=== PATIENT | male | born 1940 | race Caucasian/White ===

== ENCOUNTER 2016-03-08 22:38 | Inpatient (IN) | payer OTHER, MEDICARE ==
[~2016-03-08] VITALS: Ht 172.7 cm; Wt 105.2 kg
[~2016-03-08 22:38] MED LIST: ADVAIR DISKUS 21 DSK INH; ALDACTONE25 MG PO; ASPIRIN ADULT L81 M2 PO; CEFUROXIME AXE500 MG PO; CLOPIDOGREL75 MG PO; COREG6.25 M1 PO; CRESTOR10 M1 PO; DELTASONE20 MG PO; ESCITALOPRAM OX10 MG PO; FUROSEMIDE20 MG PO; GLYBURIDE5 MG PO; IPRAT-ALBUT 0.5-3 ML INH; LOSARTAN POTASS25 M1 PO; MASON NATURAL325 MG PO; METFORMIN HCL500 MG PO; OMEPRAZOLE20 M2 PO; PREDNISONE 10MG10 M1 PO; PREDNISONE10 M2 PO; PROAIR HFA8.5 GM INH; SPIRIVA18 MCG INH; THEOPHYLLINE E100 MG PO; ZANTAC 150MG150 MG PO; ZITHROMAX Z-PA250 M1 PO; ZITHROMAX250 M2 PO; [UNRECOGNIZED DRUG - CODE] PO
--- NOTE | 2016-03-08 22:49 | NUR ---
TONIO FROM [facility] FOR [facility] REPORT OF HYPOGLYCEMIA B/S 84, LETHARGY TODAY, WHICH PATIENT CONFIRMS, AND SOB. ARRIVES WITH UNLABORED RESPIRATIONS O2 SAT 99% 2LNC. HX RESP FAILURE AND COPD, SLEEP APNEA, AFIB, CKD, COGNITIVE COMMUNICATION DEFICIT, HEART FAILURE, TYPE 1 DIABETES. ACCUCHECK 115 BY EMS. DENIES PAIN UPON ARRIVAL. SLEEPING, BUT AROUSABLE TO VERBAL STIMULI. ABLE TO FOLLOW COMMANDS.
--- NOTE | 2016-03-08 22:56 | ED GENERAL ADULT ---
History of Present Illness General Chief Complaint: General Adult Stated Complaint: BIBA ECF FOR LETHARGY, LOW O2 SAT, HYPOGYLCEMIA Source: old records, EMS Exam Limitations: confusion Vital Signs & Intake/Output Vital Signs & Intake/Output Vital Signs Date Time Temp Pulse Resp B/P Pulse O2 O2 Flow FiO2 Ox Delivery Rate 03/08 2350 81 96 03/08 2340 99 Nasal 1.0L Cannula 03/08 2250 97.2 67 18 116/56 99 Nasal 1.0L Cannula ED Intake and Output 03/09 0000 03/08 1200 Intake Total Output Total Balance Patient 200 lb Weight Allergies Coded Allergies: NO KNOWN ALLERGIES (04/17/15) Reconcile Medications Albuterol Sulfate (Proair Hfa) 8.5 GM HFA.AER.AD 2-4 INH INH Q6P PRN ASTHMA Aspirin 81 MG CTB 1 TAB PO DAILY STROKE (Reported) Azithromycin (Zithromax) 250 MG TABLET 1 DP PO AD COPD/BRONCHITIS 2 the first day followed by 1 for days 2-5 Carvedilol (Coreg) 6.25 MG TAB 1 TAB PO BID HEART (Reported) CLOPIDOGREL BISULFATE (Clopidogrel) 75 MG TAB 1 TAB PO DAILY STROKE (Reported ) Escitalopram Oxalate 10 MG TABLET 1 TAB PO DAILY MENTAL HEALTH (Reported) Ferrous Sulfate 325 MG TAB 1 TAB PO DAILY SUPPLEMENT (Reported) FLUTICASONE/SALMETEROL (Advair 250-50 Diskus) 1 DSK DSK 1 PUFF INH BID COPD Furosemide 20 MG TAB 1 TAB PO DAILY PEDAL EDEMA Glyburide 5 MG TAB 1 TAB PO BID DIABETES Ipratropium/Albuterol Sulfate (Iprat-Albut 0.5-3(2.5) MG/3 Ml) 3 ML AMPUL.NEB 1 AMP INH TID COPD (Reported) Losartan Potassium 25 MG TABLET 25 MG PO DAILY HTN,KIDNEY Metformin Hydrochloride (Metformin HCl) 500 MG TAB 1 TAB PO BID DIABETES ( Reported) Prednisone (Deltasone) 20 MG TABLET 3 TAB PO DAILY ASTHMA Ranitidine (Zantac) 150 MG TAB 1 TAB PO DAILY REFLUX (Reported) Rosuvastatin Calcium (Crestor) 10 MG TAB 1 TAB PO DAILY CHOLESTEROL (Reported ) Spironolactone (Aldactone) 25 MG TABLET 1 TAB PO DAILY DIURETIC (Reported) Theophylline Anhydrous (Sohail-24) 100 MG CAP.ER.24H 1 CAP PO DAILY COPD ( Reported) Tiotropium [place] (Spiriva) 18 MCG CAP 1 CAP INH DAILY COPD (Reported) Triage Note: BIBA FROM [facility] FOR [facility] REPORT OF HYPOGLYCEMIA B/S 84, LETHARGY TODAY, WHICH PATIENT CONFIRMS, AND SOB. ARRIVES WITH UNLABORED RESPIRATIONS O2 SAT 99% 2LNC. HX RESP FAILURE AND COPD, SLEEP APNEA, AFIB, CKD, COGNITIVE COMMUNICATION DEFICIT, HEART FAILURE, TYPE 1 DIABETES. ACCUCHECK 115 BY EMS. DENIES PAIN UPON ARRIVAL. SLEEPING, BUT AROUSABLE TO VERBAL STIMULI. ABLE TO FOLLOW COMMANDS. Triage Nurses Notes Reviewed? yes HPI: [facility] of leth[facility]y, confusion and hypoxia. Patient is chronically on O2 and he desaturated while they were changing him over to his CPAP. EMS was contacted and the patient was brought in for evaluation. Patient opened up his eyes to painful stimuli. Patient is not able to offer any complaints. Per the W [facility] they have not noticed any coughing. Past History Travel History Traveled to [facility] past 21 day No Medical History Any Pertinent Medical History? see below for history Neurological: CVA EENT: NONE Cardiovascular: CHF, hyperlipidemia, myocardial infarction, HTN? 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 No Review of Systems Review of Systems Constitutional: Reports: see HPI. Respiratory: Reports: see HPI. Physical Exam Physical Exam General Appearance: well developed/nourished, severe distress Head: atraumatic, normal appearance Eyes: Bilateral: PERRL, EOMI. Ears, Nose, Throat: normal pharynx, normal ENT inspection Neck: normal inspection, supple, NO JVD Respiratory: decreased breath sounds, respiratory distress Cardiovascular: regular rate/rhythm, normal peripheral pulses Gastrointestinal: normal bowel sounds, soft Back: normal inspection Extremities: pedal edema Core Measures ACS in differential dx? Yes ASA ordered for poss ACS? Yes-ordered CVA/TIA Diagnosis: No Severe Sepsis Present: No Septic Shock Present: No Progress Differential Diagnoses I considered the following diagnoses in my evaluation of the patient: [AMI, hypercarbic respiratory failure, electrolyte abnormality] Plan of Care: Orders Procedure Date/time Status BLOOD CULTURE 03/09 7 Active Admit to inpatient 03/09 0003 Active BIPAP 03/08 2352 Complete ARTERIAL BLOOD GAS (GEN) 03/08 2246 Active XRY-PORTABLE CHEST XRAY 03/08 2246 Active Telemetry/Dry Dip Worker 03/08 2246 Active TROPONIN LEVEL 03/08 2246 Complete COMPREHENSIVE METABOLIC PANEL 03/08 2246 Complete CBC WITHOUT DIFFERENTIAL 03/08 2246 Complete EKG 03/08 2246 Active Current Medications Sig/Amadeo Start time Last Medication Dose Stop Time Status Admin Aspirin 325 MG ONCE ONE 03/09 14 AC (Aspirin) 03/09 15 Azithromycin 500 MG ONCE ONE 03/09 14 UNVr (Zithromax) 03/09 113 Dextrose/Water 250 ML (D5W) Ceftriaxone Sodium 1,000 MG ONCE ONE 03/09 14 UNVr (Rocephin) 03/09 15 Methylprednisolone 125 MG ONCE ONE 03/09 14 UNVr (Solu Medrol) 03/09 15 Laboratory Tests 03/08/165: Anion Gap 6, Estimated GFR 42 L, BUN/Creatinine Ratio 25.0, Glucose 93, Calcium 8.9, Total Bilirubin 0.3, AST 16 L, ALT 22, Alkaline Phosphatase 61, Troponin I 0.33 *H, Total Protein 5.9 L, Albumin 3.3 L, Globulin 2.6, Albumin/Globulin Ratio 1.3, CBC w Diff NO MAN DIFF REQ, RBC 2.95 L, MCV 88.3, MCH 29.0, RDW 13.3 , MPV 8.2, Gran % 72.7, Lymphocytes % 15.7 L, Monocytes % 9.6 H, Eosinophils % 1.8, Basophils % 0.2, Absolute Granulocytes 9.8 H, Absolute Lymphocytes 2.1, Absolute Monocytes 1.3 H, Absolute Eosinophils 0.2, Absolute Basophils 0, PUBS MCHC 32.8 L 03/08/16 2310: pH 7.32 L, pCO2 72 *H, pO2 83, HCO3 36 H, ABG O2 Sat (Measured) 94.0 L, Carboxyhemoglobin 1.2 L, O2 Concentration % 1L, O2 Delivery Method NC, Phlebotomy Draw Site LEFT RADIAL Microbiology 03/09 7 BLOOD: Blood Culture - ORD 03/09 7 BLOOD: Blood Culture - ORD Diagnostic Imaging: Viewed by Me: Radiology Read. Discussed w/RAD: Radiology Read. Initial ED EKG: NSR, nonspecific ST T wave chg Prior EKG: unchanged Rhythm Strip: normal sinus rhythm Departure Departure Disposition: STILL A PATIENT Condition: Guarded Clinical Impression Primary Impression: COPD exacerbation Secondary Impressions: Hypercapnic respiratory failure, NSTEMI (non-ST elevated myocardial infarction) Referrals: ELLA GARCIA MD (PCP/Family) Departure Forms: Customer Survey General Discharge Information Admission Note Spoke With: BRAIN CANDELARIO MD Documentation of Exam: Documentation of any treatments & extenuating circumstances including Concerns Regarding Discharge (functional status, medication knowledge or non-compliance, living conditions, etc.) that warrant an admission rather than observation: [ BiPAP, pulmonary consult, cardiology consult, IV steroids, aspirin, IV antibiotics] Critical Care Note Critical Care Note Critical Care Time: mins: (30 MINUTES)
--- NOTE | 2016-03-08 23:26 | NUR ---
LABS DRAWN AND SENT TO LAB 2 SST LAV KEENAN ZULETA
--- NOTE | 2016-03-08 23:28 | NUR ---
LINE EST #20 TO [facility]. LABS DRAWN AND SENT (LAV,SST,EXTRA BLUE, EXTRA ZULETA.)
[2016-03-08 23:33] LABS: ABSOLUTE BASOPHIL COUNT 0 /CUMM (0.0-0.2); ABSOLUTE EOSINOPHIL COUNT 0.2 /CUMM (0.0-0.7); ABSOLUTE GRANULOCYTE CT 9.8 /CUMM (1.4-6.5); ABSOLUTE LYMPH COUNT 2.1 /CUMM (1.2-3.4); ABSOLUTE MONOCYTE COUNT 1.3 /CUMM (0.10-0.60); BASOPHIL % 0.2 % (0.0-2.0); EOSINOPHIL % 1.8 % (0-5); GRANULOCYTE % 72.7 % (42.2-75.2); MEAN CORPUSCULAR HGB CONC 32.8 G/DL (33.0-37.0); MEAN CORPUSCULAR VOLUME 88.3 FL (80.0-94.0); MEAN PLATELET VOLUME 8.2 FL (7.4-10.4); PLATELET COUNT 319 /CUMM (130-400); RBC DISTRIBUTION WIDTH 13.3 % (11.5-14.5); RED BLOOD CELL CT 2.95 /CUMM (4.70-6.10); WHITE BLOOD CELL COUNT 13.5 /CUMM (4.8-10.8)
--- NOTE | 2016-03-08 23:43 | NUR ---
RT AT BEDSIDE TO ESTABLISH BIPAP
--- NOTE | 2016-03-08 23:59 | NUR ---
CRITICAL TEST RESULTS [id number] FLORENTINO MARIE 76 M TESTS AND RESULTS: TROP = 0.33 Results received and read back by: MAGALY ROBERTS Results received date and time: 03/08/16 2723 The following provider was notified of the results, and read the results back: VIDYA Notified date and time: 03/08/16 at 2118
--- NOTE | 2016-03-09 00:21 | History & Physical ---
ANNA BARRETT,[facility] [place] 03/09/16 0021: General Information and HPI MD Statement: I have seen and personally examined FLORENTINO DAVID and documented this H&P. The patient is a 76 year old M who presented with a patient stated chief complaint of lethargy. Source of Information: patient, old records, W10 Exam Limitations: unable to give history, clinical condition History of Present Illness: Mr David is a 76 y/o M with PMHx of COPD on 2 L of oxygen at home, obstructive sleep apnea on nocturnal CPAP, HFrEF, HTN, HLD, T2DM, CAD c/b [place] s/p CABG in 2010, CVA and CKD stage 3B, recently admitted under observation to [facility] for respiratory failure and discharged to [facility] at [place] few days prior to current presentation, who presents with lethargy. Most of the history is obtained from [facility] as patient is unable to provide any history given his mental status. Patient had been noted to be drowsy since his initial presentation to [place] after being discharged from [facility]. However, on the morning of current presentation, patient was lethargic and unarousable by verbal commands and soft sternal rub. His blood sugar was checked and came back at 53. He was given orange juice and his morning meal with subsequent improvement of his sugar to > 100. He remained lethargic throughout the day and his oxygen saturations dropped. He was given his scheduled breathing treatments and placed on low pressure BiPAP with some improvement in his hypoxia. Patient's son was contacted who reported that patient had had a similar presentation 4 years ago and required BiPAP at the time. ROS was unobtainable at this at time but patient denied any pain when asked by shaking his head. Of note , patient was hospitalized here at [facility] in June 2015 for acute on chronic hypercarbic and hypoxemic respiratory failure secondary to COPD exacerbation and elevated troponins, felt to represent demand ischemia. Allergies/Medications Allergies: Coded Allergies: NO KNOWN ALLERGIES (04/17/15) Home Med list Albuterol Sulfate (Proair Hfa) 8.5 GM HFA.AER.AD 2-4 INH INH Q6P PRN ASTHMA Aspirin 81 MG CTB 1 TAB PO DAILY STROKE (Reported) Azithromycin (Zithromax) 250 MG TABLET 1 DP PO AD COPD/BRONCHITIS 2 the first day followed by 1 for days 2-5 Carvedilol (Coreg) 6.25 MG TAB 1 TAB PO BID HEART (Reported) CLOPIDOGREL BISULFATE (Clopidogrel) 75 MG TAB 1 TAB PO DAILY STROKE (Reported ) Escitalopram Oxalate 10 MG TABLET 1 TAB PO DAILY MENTAL HEALTH (Reported) Ferrous Sulfate 325 MG TAB 1 TAB PO DAILY SUPPLEMENT (Reported) FLUTICASONE/SALMETEROL (Advair 250-50 Diskus) 1 DSK DSK 1 PUFF INH BID COPD Furosemide 20 MG TAB 1 TAB PO DAILY PEDAL EDEMA Glyburide 5 MG TAB 1 TAB PO BID DIABETES Ipratropium/Albuterol Sulfate (Iprat-Albut 0.5-3(2.5) MG/3 Ml) 3 ML AMPUL.NEB 1 AMP INH TID COPD (Reported) Losartan Potassium 25 MG TABLET 25 MG PO DAILY HTN,KIDNEY Metformin Hydrochloride (Metformin HCl) 500 MG TAB 1 TAB PO BID DIABETES ( Reported) Prednisone (Deltasone) 20 MG TABLET 3 TAB PO DAILY ASTHMA Ranitidine (Zantac) 150 MG TAB 1 TAB PO DAILY REFLUX (Reported) Rosuvastatin Calcium (Crestor) 10 MG TAB 1 TAB PO DAILY CHOLESTEROL (Reported ) Spironolactone (Aldactone) 25 MG TABLET 1 TAB PO DAILY DIURETIC (Reported) Theophylline Anhydrous (Sohail-24) 100 MG CAP.ER.24H 1 CAP PO DAILY COPD ( Reported) Tiotropium [place] (Spiriva) 18 MCG CAP 1 CAP INH DAILY COPD (Reported) Past History Travel History Traveled to [place] past 21 day No Medical History Neurological: CVA EENT: NONE Cardiovascular: CAD, hypertension, hyperlipidemia, myocardial infarction, systolic CHF Respiratory: COPD, obstructive sleep apnea, pneumonia Gastrointestinal: NONE Hepatic: NONE Renal: chronic kidney disease Musculoskeletal: NONE Psychiatric: NONE Endocrine: diabetes Blood Disorders: NONE Cancer(s): NONE BRIDGE WELDER/Reproductive: NONE History of MRSA: No History of VRE: No History of CDIFF: No Surgical History Surgical History: CABG, back surgery, surgeries in bilateral shoulders Past Family/Social History Family History Relations & Conditions if any FATHER, ; Cause: MVA (motor vehicle accident). FH: diabetes mellitus MOTHER FH: breast cancer SISTER, ; Cause: Motor vehicle accident. BROTHER, ; Cause: Cancer. FH: cancer No family history of: FH: heart disease; FH: stroke Psychosocial History Services at Home: Nursing, Oxygen Smoking Status: Former Smoker (Used to smoke 3 PPD) ETOH Use: denies use Illicit Drug Use: denies illicit drug use Living Will? yes Functional Ability ADLs Independent: dressing, eating, toileting, bathing. IADLs Independent: shopping, housework, finances, food prep, telephone, transportation , medication admin. Employment History Employment Retired Profession/Employer [employer] Review of Systems Review of Systems Constitutional: Reports: see HPI. Exam & Diagnostic Data Last 24 Hrs of Vital Signs/I&O Vital Signs Date Time Temp Pulse Resp B/P Pulse O2 O2 Flow FiO2 Ox Delivery Rate 03/09 0155 64 96 03/09 0132 97.1 68 20 117/57 98 BIPAP 30% 03/09 0131 97.1 03/08 2350 81 96 03/08 2340 99 Nasal 1.0L Cannula 03/08 2250 97.2 67 18 116/56 99 Nasal 1.0L Cannula Intake & Output 03/09 0800 03/09 0000 03/08 1600 Intake Total Output Total Balance Patient 90.718 kg Weight Physical Exam General Appearance Mild Distress, Lethargic but Arousable to Verbal Stimuli, Follows Simple Commands Skin No Rashes, Warm, Dry and Intact, Capillary Refill < 2 Seconds HEENT Mucous Membr. moist/pink Cardiovascular Regular Rate, Normal S1, Normal S2 Lungs Clear to Auscultation, Diminished Breath Sounds, No Crackles or Wheezes Abdomen Soft, No Tenderness, Positive Bowel sounds Neurological Strength at 5/5 X4 Ext, Moving All 4 Extremities Spontaneously, No Gross Focal Deficits Noted, Negative Babinski Sign Bilaterally Extremities No Clubbing, No Cyanosis, Trace Edema on Bilateral Lower Extremities Last 24 Hrs of Labs/[place]: Laboratory Tests 03/09/16 0200: pH 7.30 *L, pCO2 67 *H, pO2 75 L, HCO3 33 H, ABG O2 Sat (Measured) 94.0 L, P- 50 (Temp Corrected) Y, Carboxyhemoglobin 0.7 L, O2 Concentration % 30%, Temperature 97.1, Respiration Rate 20, O2 Delivery Method VISION-FFM, Vent Mode ST, Expiratory Pressure 4, Inspiratory Pressure 16, Phlebotomy Draw Site RIGHT RADIAL 03/08/16 6505: Anion Gap 6, Estimated GFR 42 L, BUN/Creatinine Ratio 25.0, Glucose 93, Calcium 8.9, Total Bilirubin 0.3, AST 16 L, ALT 22, Alkaline Phosphatase 61, Troponin I 0.33 *H, Total Protein 5.9 L, Albumin 3.3 L, Globulin 2.6, Albumin/Globulin Ratio 1.3, CBC w Diff NO MAN DIFF REQ, RBC 2.95 L, MCV 88.3, MCH 29.0, RDW 13.3 , MPV 8.2, Gran % 72.7, Lymphocytes % 15.7 L, Monocytes % 9.6 H, Eosinophils % 1.8, Basophils % 0.2, Absolute Granulocytes 9.8 H, Absolute Lymphocytes 2.1, Absolute Monocytes 1.3 H, Absolute Eosinophils 0.2, Absolute Basophils 0, PUBS MCHC 32.8 L 03/08/16 2310: pH 7.32 L, pCO2 72 *H, pO2 83, HCO3 36 H, ABG O2 Sat (Measured) 94.0 L, Carboxyhemoglobin 1.2 L, O2 Concentration % 1L, O2 Delivery Method NC, Phlebotomy Draw Site LEFT RADIAL Microbiology 03/09 0059 URINE ROUT: Urine Culture - ORD 03/09 0030 BLOOD: Blood Culture - RECD 03/09 0015 BLOOD: Blood Culture - RECD Diagnostic Data EKG Results Normal sinus rhythm HR 69 Intraventricular conduction delay QTc 476 CXR Results Enlarged cardiac silhouette which limits assessment of the left base. No definite acute findings. Other Results ECHO (06/25/2015): 1. Very limited study. Consider NORY. 2. Moderate to severely decreased systolic function based on limited views. 3. Mild left ventricular hypertrophy. 4. Mild left atrial enlargment. 5. Mild tricuspid regurgitation. Assessment/Plan Assessment: 76 y/o M with PMHx of COPD on 2 L of oxygen at home, obstructive sleep apnea on nocturnal CPAP and CAD c/b OH s/p CABG who presents with lethargy, found to be in acute on chronic hypercarbic and hypoxemic respiratory failure and with elevated troponins. #Acute on chronic hypercarbic and hypoxemic respiratory failure: Most likely secondary to obstructive sleep apnea with possible contribution from COPD exacerbation, although patient has no wheezing on exam. ABG 7.32/72/83/36 on 1 L NC. Repeat ABG 7.30/67/75/33 on BiPAP with FiO2 30% 2 hours later. CXR with no evidence of pneumonia or CHF. S/p 1 dose of IV azithromycin and ceftriaxone and 125 mg of IV Solumedrol in the ED. On 2 L of oxygen at home. On Spiriva and Advair prior to admission. * Pulmonology consult in the AM. Appreciate their recs. * TRC nebs and pulmonary toilet. * Spiriva and Symbicort inhalers. * Sputum Cx and BCx ordered. * Continue BiPAP with increased RR from 20 to 24. * Re-check ABG in the AM. * Continue qojrq-lg-woaqufdhj theophylline 100 mg PO QD. * Solumedrol 40 mg IV BID. * Azithromycin 250 mg IV QD. * Check proBNP. * Provide supplemental oxygen as needed to keep SpO2 > 92%. * Obtain records from [facility] regarding most recent hospitalization. #Lethargy: Likely secondary to hypercarbic respiratory failure. * NPO pending swallow eval. * TSH, free T4 and PM cortisol ordered. * UA, Utox and UCx ordered. #Elevated troponins: Troponin elevated to 0.33. Differential includes demand ischemia and NSTEMI. EKG with no ST-T wave abnormalities. Patient denies chest pain. * Cardiology consult in the AM. Appreciate their recs. * Admit to telemetry for continuous cardiac monitoring. * Serial EKG and troponins. * If troponins uptrend, consider starting patient on IV heparin per PTT protocol for suspected NSTEMI. * ECHO ordered. #Anemia: [facility], slightly decreased from baseline of 9-11. Normocytic anemia with MCV of 89. Iron level was checked and came back at 23. Likely represents with anemia of CKD with possible superimposed iron deficiency anemia. * Continue prior to admission ferrous sulfate 325 mg PO QD. * Atorvastatin 40 mg PO QD. * Continue kwdly-gu-mbynbrbqq aspirin 81 mg PO QD, carvedilol 3.125 mg PO BID and Plavix 75 mg PO QD. #T2DM: Episode of hypoglycemia to 53 the morning of current presentation at [facility], with improvement of BG > 100 after meal. BG 84 on current admission. * Accu-checks and Novolog NPO SSI Q6H. * Check HbA1c. #HFrEF: Most recent ECHO (June 2015) with LVEF of 30%. No evidence of CHF on CXR this admission. * Holding kundl-at-gokqjorlz Lasix for now. #CAD: History of OH s/p CABG in 2010. * Continue home statin, aspirin, beta-benigno and Plavix as above. * Lipid panel ordered. #CKD stage 3B: Cr 1.6 on admission, which is baseline for patient. * Avoid nephrotoxic medications. * Monitor lytes and kidney function. #Depression: * Continue ckxmj-yl-jrbzpllnk escitalopram 10 mg PO QD. Diet: NPO Fluids: NS @ 50 cc/hr Lytes: Replete to K > 4 and Mg > 2 DVT PPx: HSQ and ALPs GI PPx: Protonix 40 mg IV QD Pain: Tylenol 650 mg PO Q6H PRN for mild pain (scale 1-3) Percocet 1 tab PO Q6H PRN for moderate pain (scale 4-6) Percocet 2 tabs PO Q6H PRN for severe pain (scale 7-10) CODE: FULL As Ranked By This Provider Problem List: 1. CKD (chronic kidney disease) stage 3, GFR 30-59 ml/min 2. Hypercapnic respiratory failure 3. Anemia 4. Elevated troponin 5. T2DM (type 2 diabetes mellitus) 6. HTN (hypertension) 7. HLD (hyperlipidemia) 8. CAD (coronary artery disease) 9. S/P CABG (coronary artery bypass graft) 10. History of OH (myocardial infarction) 11. Acute on chronic respiratory failure with hypoxia and hypercapnia 12. Depression 13. HFrEF (heart failure with reduced ejection fraction) 14. Leukocytosis Core Measures/Miscellaneous Acute Coronary Syndrome ACS Diagnosis: No Cerebrovascular Accident CVA/TIA Diagnosis: No Congestive Heart Failure CHF Diagnosis: No Venous Thromboembolism VTE Risk Factors: Acute medical illness, Age > 40, CHF or Resp failure VTE Prophylaxis Ordered Inpt: Mech & Pharm No Mech VTE prophylaxis d/t: No contraindications No VTE Pharm Prophylaxis d/t: No contraindications VTE Diagnosis: No VTE Type: NONE VTE Confirmed by (Test): NONE Severe Sepsis Severe Sepsis Present: No Septic Shock Septic Shock Present: No Miscellaneous Documentation Attending Case Discussed With: NI CANDELARIO MDDayana Primary Care Physician: ELLA GARCIA MD Patient sees these Specialists Medical Detailist and Security Auditor at [place] Level of Patient Care: Telemetry RADHA PAULINO 03/09/16 0159: Resident Review Statement Resident Statement: examined this patient, discussed with hr intern, agreed with hr intern, discussed with family, reviewed EMR data (avail), discussed with nursing , reviewed images Other Findings: Mr David is a 76-year-old gentleman with a PMH of COPD on 2 LNC, JUANITO on nocturnal CPAP, HTN, DM, CAD, OH with CABG 2010, CVA, COPD stage III who was BIBA from [facility] after noticeable lethargy/drowsiness this morning. Information obtained from W 10 and nurse at the facility: He was recently discharged from [facility] and has been that [place] for the past 3-4 days. This morning he was noted to be much more drowsy and lethargic, Accu-Chek 53 for which he received some orange juice and corrected to >120. He was placed on BiPAP later in the evening with an interval improvement in arousability but persistent lethargy. VS on admission: BP 116/56, HR 67, RR 18, SPO2 99% on 1L NC, T 97.2 PE: Patient is arousable to loud verbal commands/sternal rub. Able to follow commands appropriately. RRR, distant heart sounds. Normal air movement, no wheezing/rhonchi. Normal bowel sounds with no tenderness to palpation. Spontaneous movement of all extremities, negative Babinski. Pertinent labs: WBC 13.5, H&H 8.5/26.0, sodium 140, potassium 4.1, chloride 97, HCO 37, BUN/CR 40/1.6, glucose 93 ProBNP: 6190 ABG (2310hrs): 7.32/72/83/36/94% on 1 LNC ABG (0200hrs): 7.30/67/75/33/94% on 30% FiO2 Troponin: 0.33 CXR: Large cardiac silhouette which limits assessment of the left base. No definitive acute findings. Problem list: 1. Hypercarbic respiratory failure 2. Altered mental status 3. Elevated troponins 4. COPD 5. JUANITO 6. Diabetes: Hypoglycemic episode prior to admission 7. Hypertension Plan: * Admit to telemetry for continuous cardiac monitoring. EKG/troponin at 0600, 1200: NSTEMI vs demand ischemia. Previous echo (06/2015): LVEF 30%, RV syst pressure 27.6. Will obtain Echocardiogram in the a.m. Patient has been seen by Dr. Arrieta and Dr. Crouch most recently. Please confirm when placing cardio consult in the a.m. Restart lasix once more stable * Physical exam did not reveal any evidence of wheezing thus less inclined to continue steroids at this time. ABG results as indicated above. We'll increase RR from 20-24, continue IPAP/EPAP 16/4 for now. Pulm consult in the a.m. (Dr. Valenzuela) * AMS: Likely secondary to hypercarbia vs hypoglycemia. Patient may benefit from repeat sleep study to assess AHI and nocturnal BiPAP. Follow-up urine tox, UA/culture. NPO sliding scale. Continue on D5NS @ 50cc/hr for total fo 500ml * Iron defi anemia: serum Fe 23 which is down from 64 approx 2yrs ago. Consider increasing Feso to BID from once daily * NPO at this time. Swalllow eval in the AM an start on diabetic diet once cleared * GI prophylaxis: IV PPI * DVT prophylaxis: heparin 5000 unit SQ * TRCs, Spiriva, Advair * Code status: full code AM team: * Follow up [facility] records from recent discharge * Restart furosemide in the AM * Mag, Phos * Utox pending * UA, culture pending KODAK BARRETT, [facility] 03/09/16 0305: Attending MD Review Statement Attending Statement Attending MD Statement: examined this patient, discuss w/resident/PA/GARAGE DOOR TECHNICIAN, agreed w/resident/PA/GARAGE DOOR TECHNICIAN Attending Assessment/Plan: 76 yo M with h/o T2DM, CAD s/p CABG, COPD on 2L, systolic CHF, CVA, JUANITO on CPAP, CKD stage 3B, HTN, last admitted to [facility] (June 2015) for COPDE is brought in from [place] for confusion and lethargy since this AM. According to RN at the facility, accuchek was 53 and he was given orange juice. However, he continued to be lethargic and hypoxic so placed on Bipap, and sent to ER. Patient was reportedly admitted to [facility] recently, RN was able to tell us why. Vitals: afebrile, HR 60-70's, BP 117/57, sats 98% on FiO2 30%. Exam: Obese male, lethargic, arousable to verbal stimuli, able to follow few commands. Chest b/l reduced air entry. Labs: WBC 13.5, H/H 8.5/26, bicarb 37, BUN 40, creat 1.6 ( baseline), trop 0.33, proBNP 6190, AB.32/72/83/36. CXR: enlarged cardiac silhouette, no pulmonary edema or consolidation. EKG: SR with IVCD (P-waves noted, not Afib). Echo (2016): EF 30%. 1. Acute on chronic hypercarbic and hypoxemic respiratory failure in the setting of COPD and JUANITO. No evidence of CHF or pneumonia. Sputum culture, TRC nebs, check Utox, continue IV azithro and IV steroid BID for now, ct. Bipap. Repeat ABG is 7.30/67/75/33 on FiO2 30%, RR 20, I/E 16/4. Will increase FiO2 and RR and recheck ABG in 2 hours. NPO, Pulm consult (Dr. Valenzuela). 2. Elevated troponin NSTEMI vs. demand ischemia. Serial EKG/troponin, repeat Echo, Cardio consult. Obtain records of most recent hospitalization at [facility]. If troponins trending up, consider IV heparin per PTT protocol. Continue aspirin. plavix, beta benigno and statin. 3. Leukocytosis. CXR not suggestive of pneumonia, awaiting UA. 4. CKD at baseline. DM accucheks, insulin NPO SS. Check HbA1c. GI ppx IV PPI. DVT ppx heparin SC. Full code.
--- NOTE | 2016-03-09 00:57 | RADIOLOGY REPORT ---
EXAMINATION: XR PORTABLE CHEST CLINICAL INFORMATION: Shortness of breath COMPARISON: 10/26/2015 TECHNIQUE: Portable view of the chest was obtained. FINDINGS: Lung volumes are symmetric. Assessment of the left base is limited due to technique and enlarged cardiac silhouette. Linear scarring is noted in the left midlung. No definite acute consolidation. No evidence of pneumothorax or overt pulmonary edema. The cardiac silhouette is enlarged. Calcification is present at the aortic arch. No acute osseous findings are seen. Sternal wires are present. IMPRESSION: Enlarged cardiac silhouette which limits assessment of the left base. No definite acute findings.
--- NOTE | 2016-03-09 01:00 | NUR ---
house staff here to ronnie
--- NOTE | 2016-03-09 02:58 | Admission Certification ---
Admission Certification Certification Statement - As attending physician, I certify that at the time of - admission, based on clinical presentation, severity of - symptoms, need for further diagnostic testing and - therapeutic interventions, and risk of adverse outcomes - without in-hospital treatment, in my clinical assessment, - this patient requires an acute hospital stay for a minimum - of two nights or longer. I have also considered psychsocial - factors such as support system, advanced age, financial - issues, cognitive issues, and failed out-patient treatments, - past re-admission history, safety of patient, and lack of - compliance as applicable. Specific rationale supporting this admission is: Acute on chronic hypercarbic and hypoxic respiratory failure, COPD exacerbation. Elevated troponin - NSTEMI vs. demand ischemia.
--- NOTE | 2016-03-09 06:00 | NUR ---
AM VS DONE. INCONTINENT OF STOOL AND URINE. ERASMO CARE GIVEN AND NEW LINENS AND DIAPER APPLIED. LABS DRAWN--SST,LAV SENT URINE SPEC OBTAINED AND 3 TUBES SENT.
--- NOTE | 2016-03-09 06:20 | NUR ---
PT MEDICATED WITH 5000 UNIT HEPARIN BOLUS AND NOVOLIN R 4 UNITS INSULIN PER SLIDING SCALE FOR BS 193.
[2016-03-09 06:32] LABS: ABSOLUTE BASOPHIL COUNT 0 /CUMM (0.0-0.2); ABSOLUTE EOSINOPHIL COUNT 0 /CUMM (0.0-0.7); ABSOLUTE GRANULOCYTE CT 11.9 /CUMM (1.4-6.5); ABSOLUTE LYMPH COUNT 1.1 /CUMM (1.2-3.4); ABSOLUTE MONOCYTE COUNT 0.1 /CUMM (0.10-0.60); BASOPHIL % 0.1 % (0.0-2.0); EOSINOPHIL % 0.1 % (0-5); MEAN CORPUSCULAR HGB 29.2 PG (27.0-31.0); MEAN CORPUSCULAR HGB CONC 32.7 G/DL (33.0-37.0); MEAN CORPUSCULAR VOLUME 89.1 FL (80.0-94.0); MEAN PLATELET VOLUME 8.4 FL (7.4-10.4); PLATELET COUNT 294 /CUMM (130-400); RBC DISTRIBUTION WIDTH 13.9 % (11.5-14.5); RED BLOOD CELL CT 2.91 /CUMM (4.70-6.10); WHITE BLOOD CELL COUNT 13.2 /CUMM (4.8-10.8)
[2016-03-09 07:13] LABS: GRANULOCYTE % 90.6 % (42.2-75.2)
--- NOTE | 2016-03-09 07:17 | PN- Housestaff ---
Subjective Follow-up For: Acute on chronic hypercarbic/hypoxic respiratory failure Acute coronary syndrome Anemia Type 2 diabetes Chronic kidney disease stage III Depression Complaints: complaining of cold/chills Subjective: Patient is seen and examined at the bedside. He was responding to verbal command. He was on BiPAP, so not able to talk. He was just complaining of cold. Denies of any chest pain, abdominal pain, dysuria, constipation and diarrhea Review of Systems Constitutional: Reports: chills. Comments: Cannot be assessed because of patient's clinical condition on the BiPAP Objective Last 24 Hrs of Vital Signs/I&O Vital Signs Date Time Temp Pulse Resp B/P Pulse O2 O2 Flow FiO2 Ox Delivery Rate 03/09 0732 98.0 66 24 125/66 99 BIPAP 30% 03/09 0626 67 96 03/09 0622 97 BIPAP 30% 03/09 0553 97.4 64 26 124/56 97 BIPAP 30% 03/09 0346 64 96 03/09 0155 64 96 03/09 0132 97.1 68 20 117/57 98 BIPAP 30% 03/09 0131 97.1 03/08 2350 81 96 03/08 2340 99 Nasal 1.0L Cannula 03/08 2250 97.2 67 18 116/56 99 Nasal 1.0L Cannula Intake & Output 03/09 1600 03/09 0800 03/09 0000 Intake Total Output Total Balance Patient 90.718 kg Weight Physical Exam General Appearance: Cooperative, No Acute Distress Skin: No Rashes, No Breakdown HEENT: Atraumatic, PERRLA, EOMI Neck: Supple, No JVD Cardiovascular: Regular Rate, Normal S1, Normal S2 Lungs: Clear to Auscultation, decrease in entry bilaterally Abdomen: Soft, No Tenderness, distended Neurological: Normal Speech Extremities: No Clubbing, No Cyanosis, No Edema Vascular: Normal Pulses, Pulses Symmetrical Assessment/Plan Assessment: Mr David is a 76 y/o M with PMHx of COPD on 2 L of oxygen at home, obstructive sleep apnea on nocturnal CPAP, HTN, HLD, T2DM, CAD c/b [place] s/p CABG in 2010, CVA, CKD stage III, recently admitted under observation to [facility] for respiratory failure and discharged to [facility] at [place] few days prior to current presentation, who presents with lethargy. Vital signs today Chest x-ray 03/09/2016-no any acute changes Problem list - Acute and chronic
--- NOTE | 2016-03-09 07:28 | NUR ---
PT ASSIGNED ROOM 110 AT 0705.
--- NOTE | 2016-03-09 07:38 | NUR ---
ASSUMED CARE. PT SLEEPING WHEN THIS NURSE ENTERED ROOM, AWAKE TO VERBAL STIMULIS, PT REPOSITIONED UP IN BED, RESP RATE 24-26 ON BIPAP AT 30 %,O2 SAT 99 %. SINUS ON MONITOR WITH HR 72. NS INFUSING VIA PUMP AT 50 ML/HR. FINGERSTICK 193
--- NOTE | 2016-03-09 07:56 | NUR ---
REPORT TO [facility]
--- NOTE | 2016-03-09 08:29 | Cons- Pulmonary ---
General Information and HPI Consulting Request Date of Consult: 03/09/16 Requested By: Franco Diggs History of Present Illness: 76 yo M with h/o T2DM, CAD s/p CABG, COPD on 2L, systolic CHF, CVA, JUANITO on CPAP, CKD stage 3B, HTN, multiple admission for CHF and COPD exacerbation and last admission in [place] June 2015 for COPD exacerbation brought in for increasing confusion and a large she since this morning. Vital signs: HR 60-70's, BP 117/57, sats 98% on FiO2 30%. Exam: Obese male, lethargic, arousable to verbal stimuli, able to follow few commands. Chest b/l reduced air entry. Labs: WBC 13.5, H/H 8.5/26, bicarb 37, BUN 40, creat 1.6 (baseline), trop 0.33, proBNP 6190 AB.32/72/83/36 CXR: enlarged cardiac silhouette, no pulmonary edema or consolidation. EKG: SR with IVCD (P-waves noted, not Afib). Echo (2016): EF 30%. List of problems #1 acute on chronic respiratory failure due to COPD exacerbation and obesity hypoventilation syndrome #2 elevated troponin #3 leukocytosis #4 CKD Allergies/Medications Allergies: Coded Allergies: NO KNOWN ALLERGIES (04/17/15) Home Med List: Albuterol Sulfate (Proair Hfa) 8.5 GM HFA.AER.AD 2-4 INH INH Q6P PRN ASTHMA Aspirin 81 MG CTB 1 TAB PO DAILY STROKE (Reported) Azithromycin (Zithromax) 250 MG TABLET 1 DP PO AD COPD/BRONCHITIS 2 the first day followed by 1 for days 2-5 Carvedilol (Coreg) 6.25 MG TAB 1 TAB PO BID HEART (Reported) CLOPIDOGREL BISULFATE (Clopidogrel) 75 MG TAB 1 TAB PO DAILY STROKE (Reported ) Escitalopram Oxalate 10 MG TABLET 1 TAB PO DAILY MENTAL HEALTH (Reported) Ferrous Sulfate 325 MG TAB 1 TAB PO DAILY SUPPLEMENT (Reported) FLUTICASONE/SALMETEROL (Advair 250-50 Diskus) 1 DSK DSK 1 PUFF INH BID COPD Furosemide 20 MG TAB 1 TAB PO DAILY PEDAL EDEMA Glyburide 5 MG TAB 1 TAB PO BID DIABETES Ipratropium/Albuterol Sulfate (Iprat-Albut 0.5-3(2.5) MG/3 Ml) 3 ML AMPUL.NEB 1 AMP INH TID COPD (Reported) Losartan Potassium 25 MG TABLET 25 MG PO DAILY HTN,KIDNEY Metformin Hydrochloride (Metformin HCl) 500 MG TAB 1 TAB PO BID DIABETES ( Reported) Prednisone (Deltasone) 20 MG TABLET 3 TAB PO DAILY ASTHMA Ranitidine (Zantac) 150 MG TAB 1 TAB PO DAILY REFLUX (Reported) Rosuvastatin Calcium (Crestor) 10 MG TAB 1 TAB PO DAILY CHOLESTEROL (Reported ) Spironolactone (Aldactone) 25 MG TABLET 1 TAB PO DAILY DIURETIC (Reported) Theophylline Anhydrous (Sohail-24) 100 MG CAP.ER.24H 1 CAP PO DAILY COPD ( Reported) Tiotropium [place] (Spiriva) 18 MCG CAP 1 CAP INH DAILY COPD (Reported) Past History Travel History Traveled to [place] past 21 day No Medical History Neurological: CVA EENT: NONE Cardiovascular: CAD, hypertension, hyperlipidemia, myocardial infarction, systolic CHF Respiratory: COPD, obstructive sleep apnea, pneumonia Gastrointestinal: NONE Hepatic: NONE Renal: chronic kidney disease Musculoskeletal: NONE Psychiatric: NONE Endocrine: diabetes Blood Disorders: DVT Cancer(s): 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 FH: diabetes mellitus MOTHER FH: breast cancer SISTER, ; Cause: Motor vehicle accident. BROTHER, ; Cause: Cancer. FH: cancer Psychosocial History Services at Home: Nursing, Oxygen Smoking Status: Former Smoker (Used to smoke 3 PPD) ETOH Use: denies use Illicit Drug Use: denies illicit drug use Living Will? yes Functional Ability ADLs Independent: dressing, eating, toileting, bathing. IADLs Independent: shopping, housework, finances, food prep, telephone, transportation , medication admin. Employment History Employment: Retired Profession/Employer: [employer] Assessment/Plan Impression/Plan: 76-year-old obese man with history of coronary artery disease status post CABG, congestive heart failure with reduced ejection fraction of 30%, COPD on 2 days of home oxygen and obstructive sleep apnea, CTD stage III, and multiple admission due to congestive heart failure and COPD the last one in June 2015 for COPD exacerbation. Pertinent Data Labs: WBC 13.5, H/H 8.5/26, bicarb 37, BUN 40, creat 1.6 (baseline), trop 0.33, proBNP 6190 ABG: initial 7.32/72/83/36>> after few hours of BiPaP 7.30/67/75>> off BiPAP fro few hours for logistic issues, ABG 7.31/57/77. CXR: enlarged cardiac silhouette, no pulmonary edema or consolidation. EKG: SR with IVCD (P-waves noted, not Afib). Echo (2016): EF 30%. List of active problems List of problems #1 acute on chronic respiratory failure due to COPD exacerbation and obesity hypoventilation syndrome #2 elevated troponin #3 heart failure with reduced ejection fraction #4 leukocytosis #5 CKD Respiratory: Acute on chronic Hypoxic respiratory failure with minimal improvement on BiPAP impending respiratory failure. Secondary to COPD exacerbation. Pneumonia can't be ruled out. * nothing by mouth * BiPAP; PEEP 6 * D/C all the inhalers- Symbicort and Spiriva * Check ABG with a few hours after initiation of BiPAP; assess for worsening of hypercapnia * IV azithromycin 250 mg IV daily for anti-inflammatory properties * IV Solu-Medrol 40 mg every 8 hours * Stopped Theophyline due to its low cardiotoxicity dose and slight bronchodilator effect * Stop by mouth medications due to altered mental status and increased risk of aspiration * Keep the bed elevated at 45 * Aspiration precaution Infectious disease: Leukocytosis with no evidence of infection. Chest x-ray is negative. Leukocytosis could be related to dehydration or reactive leukocytosis. * Daily CBC * Continue IV azithromycin 250 mg daily * Sputum culture * Resident of senior living: urine Legionella antigen * strep urine antigen * Flue swab * Patient spiked fever HCAP * Follow blood culture and urine culture Cardiac #1 rule out ACS: Of coronary artery disease status post CABG.elevated troponin 0.33. Without EKG changes: Type II [place] versus demand ischemia. * 24-hour site monitor * Trending troponin and EKG * Keep the patient on 300 rectal aspirin * Stop Plavix due to altered mental status and risk of aspiration pneumonia- patient improved resume Plavix 75 mg by mouth daily; discussed the need and alternatives medication with cardiology * High risk of aspiration-stop atorvastatin * Switch carvedilol 3.125 to metoprolol 1.25 mg IV every 6 when necessary #2 congestive heart failure decompensation-elevated proBNP of 6190. No JVD no peripheral edema in the physical exam of the lungs chest x-ray does not show pulmonary congestion. Probably due to COPD exacerbation. Rule out acute coronary syndrome as a cause of CHF decompensation. * Admit to ICU * Restrict ins and outs * Daily weights * Consult cardiology * maintaine IV hydration with minimal rate of 50 mL per hour * Avoids over hydrating the patient considering his reduced ejection fraction of 30% * Patient's daily dose of by mouth Lasix 20 mg and spironolactone was held by admitting team due to dehydration- agree with holding diuretics for now Hematology: Normocytic anemia with hemoglobin of 8.5 and leukocytosis. * No fever no symptoms of infection. Check daily CBC * Anemia at his baseline. * Stop ferrous sulfate due to high risk of aspiration Metabolic: Low T3 possibly in an acute ill the patient. The measurements of thyroid function tests in severely sick patient is not recommended unless there is a high clinical suspicious of thyroid dysfunction. His patient below T3 could be related to acute sickness or prolonged treatment with carvedilol. * No further action is required at this moment; refer to shuttle buggy operator as an outpatient * Dehydration: Pain IV fluids 50 mL per hour-D5 half saline * increased HCO3: In the setting of obstructive sleep apnea * Chronic kidney stage-3 creatinine 1.5 at his baseline Diet * NPO * IV hydration with D5 half saline 50 mL per hour * IV pantoprazole 40 mg Neurology * Altered mental status and confusion * Hold citalopram Pain medication * Avoids all the sedative and hypnotic medications is altered mental status and hypercapnic respiratory failure * IV Tylenol for pain Subcutaneous heparin 5000 units every 8 DVT prophylaxis Full code TTS with patient 1 h ICU time Consult Acknowledgment - Thank you for your consult request.
[2016-03-09 09:00] VITALS: BP 120/62
--- NOTE | 2016-03-09 09:32 | NUR ---
REC'D THE PT FROM THE ER AT 0830. TRANSFERRED TO THE BED WITH ASSIST OF 5 PERSONS. PT IS DROWSY BUT AROUSABLE, ORIENTED TO SELF AND PLACE BUT DISORIENTED TO TIME, REORIENTED WITH LITTLE EFFECT. MOVES ALL EXTREMEITES AND HAS EQUAL STRENGTH BILATERALLY. FOLLOWS COMMANDS. PT IS IN A FIRST DEGREE AVB WITH A NV OF .26, FREQ PVC'S NOTED. NO PERIPHERAL EDEMA NOTED. PT IS ON A 2LNC WITH AN O2 SAT OF 96%. BS ARE DIMINISHED THROUGHOUT. RR IS 24. ABD IS SOFT WITH NORMOACTIVE BOWEL SOUNDS. SALAZAR IN PLACE DRAINING CLEAR YELLOW URINE. ORIENTED TO [facility] AND GIVEN THE CALL WEISS.
--- NOTE | 2016-03-09 09:37 | NUR ---
THE PT RECEIVED BOTH ASA 325MG PO AND SOLUMEDROL 125MG IV AT 0046. ASA 81MG AND SOLUMEDROL 40MG IV ORDERED TO BE ADMINSITERED AT 1000. DISCUSSED WITH DR DESTINI TORIBIO AND THE MEDS ARE NOT TO BE ADMINSITERED AT 1000. PT WILL RECEIVE THE ASA TOMORROW AND THE NEXT DOSE OF SOLUMEDROL WILL BE AT 2200.
--- NOTE | 2016-03-09 10:54 | Cons- [facility] ---
PREETHIRAMÍREZ 03/09/16 0943: General Information and HPI Consulting Request Date of Consult: 03/09/16 Requested By: Franco BARRETT. Reason for Consult: Acute hypoxic hypercapnic respiratory failure Exam Limitations: unable to give history, not alert/orientated, confusion History of Present Illness: 76 yo M, resident of [place], with h/o T2DM, CAD s/p CABG, COPD on 2L, systolic CHF, CVA, JUANITO on CPAP, CKD stage 3B, HTN, multiple admission for CHF and COPD exacerbation and last admission in [place] June 2015 for COPD exacerbation brought in for increasing confusion and a lethargy. He was initially placed on BiPAP his mentation is slightly improved. initial Vital signs: HR 60-70's, BP 117/57, sats 98% on FiO2 30%. Labs: WBC 13.5, H/H 8.5/26, bicarb 37, BUN 40, creat 1.6 (baseline), trop 0.33, proBNP 6190. Initial ABG showed respiratory acidosis and hypercapnic hypoxic respiratory failure. Was admitted to the hospital from emergency room, during transportation his BiPAP treatment was interrupted. She remains confused but arousable with persistent ABG showing respiratory acidosis with hypercapnic and hypoxic respiratory failure. Patient was transferred to ICU due to impending respiratory failure requires intubation. Influenza vaccination unknown. Allergies/Medications Allergies: Coded Allergies: NO KNOWN ALLERGIES (04/17/15) Home Med List: Albuterol Sulfate (Proair Hfa) 8.5 GM HFA.AER.AD 2-4 INH INH Q6P PRN ASTHMA Aspirin 81 MG CTB 1 TAB PO DAILY STROKE (Reported) Azithromycin (Zithromax) 250 MG TABLET 1 DP PO AD COPD/BRONCHITIS 2 the first day followed by 1 for days 2-5 Carvedilol (Coreg) 6.25 MG TAB 1 TAB PO BID HEART (Reported) CLOPIDOGREL BISULFATE (Clopidogrel) 75 MG TAB 1 TAB PO DAILY STROKE (Reported ) Escitalopram Oxalate 10 MG TABLET 1 TAB PO DAILY MENTAL HEALTH (Reported) Ferrous Sulfate 325 MG TAB 1 TAB PO DAILY SUPPLEMENT (Reported) FLUTICASONE/SALMETEROL (Advair 250-50 Diskus) 1 DSK DSK 1 PUFF INH BID COPD Furosemide 20 MG TAB 1 TAB PO DAILY PEDAL EDEMA Glyburide 5 MG TAB 1 TAB PO BID DIABETES Ipratropium/Albuterol Sulfate (Iprat-Albut 0.5-3(2.5) MG/3 Ml) 3 ML AMPUL.NEB 1 AMP INH TID COPD (Reported) Losartan Potassium 25 MG TABLET 25 MG PO DAILY HTN,KIDNEY Metformin Hydrochloride (Metformin HCl) 500 MG TAB 1 TAB PO BID DIABETES ( Reported) Prednisone (Deltasone) 20 MG TABLET 3 TAB PO DAILY ASTHMA Ranitidine (Zantac) 150 MG TAB 1 TAB PO DAILY REFLUX (Reported) Rosuvastatin Calcium (Crestor) 10 MG TAB 1 TAB PO DAILY CHOLESTEROL (Reported ) Spironolactone (Aldactone) 25 MG TABLET 1 TAB PO DAILY DIURETIC (Reported) Theophylline Anhydrous (Sohail-24) 100 MG CAP.ER.24H 1 CAP PO DAILY COPD ( Reported) Tiotropium [place] (Spiriva) 18 MCG CAP 1 CAP INH DAILY COPD (Reported) Review of Systems Review of Systems Constitutional: Reports: see HPI. Comments Upon our visit this morning at 9 AM patient is extremely confused but arousable obtaining review of system is not possible. 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 FH: diabetes mellitus MOTHER FH: breast cancer SISTER, ; Cause: Motor vehicle accident. BROTHER, ; Cause: Cancer. FH: cancer Psychosocial History Where Do You Live? Extended [facility] Facility Services at Home: Nursing, Oxygen Smoking Status: Former Smoker (Used to smoke 3 PPD) ETOH Use: denies use Illicit Drug Use: denies illicit drug use Living Will? yes Functional Ability ADLs Independent: dressing, eating, toileting, bathing. IADLs Independent: shopping, housework, finances, food prep, telephone, transportation , medication admin. Employment History Employment: Retired Profession/Employer: [employer] Exam & Diagnostic Data Last 24 Hrs of Vital Signs/I&O Vital Signs Date Time Temp Pulse Resp B/P Pulse O2 O2 Flow FiO2 Ox Delivery Rate 03/09 0940 96 BIPAP 30% 03/09 0939 66 96 03/09 0900 96 Nasal 2.0L Cannula 03/09 0900 97.2 90 24 120/62 96 Nasal 2.0L Cannula 03/09 0732 98.0 66 24 125/66 99 BIPAP 30% 03/09 0626 67 96 03/09 0622 97 BIPAP 30% 03/09 0553 97.4 64 26 124/56 97 BIPAP 30% 03/09 0346 64 96 03/09 0155 64 96 03/09 0132 97.1 68 20 117/57 98 BIPAP 30% 03/09 0131 97.1 03/08 2350 81 96 03/08 2340 99 Nasal 1.0L Cannula 03/08 2250 97.2 67 18 116/56 99 Nasal 1.0L Cannula Intake & Output 03/09 1600 03/09 0800 03/09 0000 Intake Total Output Total Balance Patient 240 lb 200 lb Weight Physical Exam General Appearance: lethargic, severe distress, obese, severely lethargic and confused but arousable; open his eyes with verbal stimuli Head: membranes are dry Eyes: Left: PERRL, EOMI. Neck: normal inspection, supple, full range of motion, no JVD Respiratory: physical exam of the lungs are very limited due to patient's status, decreased air movement, clear wheeze or crackle Cardiovascular: regular rate/rhythm, no JVD, no S3, no peripheral edema Peripheral Pulses: 2+ carotid (R), 2+ carotid (L) Gastrointestinal: normal bowel sounds, soft, non-tender Rectal: deferred Extremities: no edema Neurologic/Psych: disorientedand confused, severely lethargic but opens his eyes in response to calling his name Cranial Nerves: not obtainable Last 48 Hrs of Labs/[place]: Laboratory Tests 03/09/16 0630: pH 7.31 L, pCO2 57 H, pO2 77 L, HCO3 28, ABG O2 Sat (Measured) 94.0 L, P-50 (Temp Corrected) Y, Carboxyhemoglobin 0.5 L, O2 Concentration % 30%, Temperature 97.4, Respiration Rate 24, O2 Delivery Method VISION-FFM, Vent Mode ST, Expiratory Pressure 4, Inspiratory Pressure 16, Phlebotomy Draw Site RIGHT RADIAL 03/09/16 0610: Urine Color YEL, Urine Clarity CLEAR, Urine pH 6.0, Ur Specific [place] 1.020, Urine Protein TRACE H, Urine Ketones NEG, Urine Nitrite NEG, Urine Bilirubin NEG, Urine Urobilinogen 0.2, Ur Leukocyte Esterase NEG, Ur Microscopic SEDIMENT EXAMINED, Urine WBC RARE, Ur Epithelial Cells RARE, Urine Hemoglobin NEG, Urine Glucose NEG 03/09/16 0600: Hemoglobin A1c Pending 03/09/16 0553: Anion Gap 8, Estimated GFR 46 L, BUN/Creatinine Ratio 26.0 H, Phosphorus 3.9, Magnesium 2.2, Troponin I 0.23 *H, Triglycerides 112, Cholesterol 113, LDL Cholesterol, Calc 51 L, HDL Cholesterol 40, Cholesterol/HDL Ratio 3, Free T4 1.09, Total T3 0.82 L, TSH &T3 &Free T4 Intrp 1.010, CBC w Diff NO MAN DIFF REQ , RBC 2.91 L, MCV 89.1, MCH 29.2, RDW 13.9, MPV 8.4, Gran % 90.6 H, Lymphocytes % 8.4 L, Monocytes % 0.8 L, Eosinophils % 0.1, Basophils % 0.1, Absolute Granulocytes 11.9 H, Absolute Lymphocytes 1.1 L, Absolute Monocytes 0.1 L, Absolute Eosinophils 0, Absolute Basophils 0, PUBS MCHC 32.7 L 03/09/16 0200: pH 7.30 *L, pCO2 67 *H, pO2 75 L, HCO3 33 H, ABG O2 Sat (Measured) 94.0 L, P- 50 (Temp Corrected) Y, Carboxyhemoglobin 0.7 L, O2 Concentration % 30%, Temperature 97.1, Respiration Rate 20, O2 Delivery Method VISION-FFM, Vent Mode ST, Expiratory Pressure 4, Inspiratory Pressure 16, Phlebotomy Draw Site RIGHT RADIAL 03/08/16 8129: Anion Gap 6, Estimated GFR 42 L, BUN/Creatinine Ratio 25.0, Glucose 93, Calcium 8.9, Total Bilirubin 0.3, AST 16 L, ALT 22, Alkaline Phosphatase 61, Troponin I 0.33 *H, Zyi-Q-Iftxqzrfwxr Pept 6190 H, Total Protein 5.9 L, Albumin 3.3 L, Globulin 2.6, Albumin/Globulin Ratio 1.3, Cortisol PM Sample 14.0, CBC w Diff NO MAN DIFF REQ, RBC 2.95 L, MCV 88.3, MCH 29.0, RDW 13.3, MPV 8.2, Gran % 72.7, Lymphocytes % 15.7 L, Monocytes % 9.6 H, Eosinophils % 1.8, Basophils % 0.2, Absolute Granulocytes 9.8 H, Absolute Lymphocytes 2.1, Absolute Monocytes 1.3 H, Absolute Eosinophils 0.2, Absolute Basophils 0, PUBS MCHC 32.8 L 03/08/16 2310: pH 7.32 L, pCO2 72 *H, pO2 83, HCO3 36 H, ABG O2 Sat (Measured) 94.0 L, Carboxyhemoglobin 1.2 L, O2 Concentration % 1L, O2 Delivery Method NC, Phlebotomy Draw Site LEFT RADIAL Diagnostic Data EKG Results EKG: SR with IVCD (P-waves noted, not Afib). CXR Results CXR: enlarged cardiac silhouette, no pulmonary edema or consolidation Assessment/Plan Impression/Plan: 76-year-old obese man with history of coronary artery disease status post CABG, congestive heart failure with reduced ejection fraction of 30%, COPD on 2 days of home oxygen and obstructive sleep apnea, CTD stage III, and multiple admission due to congestive heart failure and COPD the last one in June 2015 for COPD exacerbation. Pertinent Data Labs: WBC 13.5, H/H 8.5/26, bicarb 37, BUN 40, creat 1.6 (baseline), trop 0.33, proBNP 6190 ABG: initial 7.32/72/83/36>> after few hours of BiPaP 7.30/67/75>> off BiPAP fro few hours for logistic issues, ABG 7.31/57/77. CXR: enlarged cardiac silhouette, no pulmonary edema or consolidation. EKG: SR with IVCD (P-waves noted, not Afib). Echo (2016): EF 30%. List of active problems List of problems #1 acute on chronic respiratory failure due to COPD exacerbation and obesity hypoventilation syndrome #2 elevated troponin #3 heart failure with reduced ejection fraction #4 leukocytosis #5 CKD Respiratory: Acute on chronic Hypoxic respiratory failure with minimal improvement on BiPAP impending respiratory failure. Secondary to COPD exacerbation. Pneumonia can't be ruled out. * nothing by mouth * BiPAP; PEEP 6 * D/C all the inhalers- Symbicort and Spiriva * Check ABG with a few hours after initiation of BiPAP; assess for worsening of hypercapnia * IV azithromycin 250 mg IV daily for anti-inflammatory properties * IV Solu-Medrol 40 mg every 8 hours * Stopped Theophyline due to its low cardiotoxicity dose and slight bronchodilator effect * Stop by mouth medications due to altered mental status and increased risk of aspiration * Keep the bed elevated at 45 * Aspiration precaution Infectious disease: Leukocytosis with no evidence of infection. Chest x-ray is negative. Leukocytosis could be related to dehydration or reactive leukocytosis. * Daily CBC * Continue IV azithromycin 250 mg daily * Sputum culture * Resident of half-way: urine Legionella antigen * strep urine antigen * Flue swab * Patient spiked fever HCAP * Follow blood culture and urine culture Cardiac #1 rule out ACS: Of coronary artery disease status post CABG.elevated troponin 0.33. Without EKG changes: Type II [place] versus demand ischemia. 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 No JVD no peripheral edema in the physical exam of the lungs chest x-ray does not show pulmonary congestion. Probably due to COPD exacerbation. Rule out acute coronary syndrome as a cause of CHF decompensation. * Admit to ICU * Restrict ins and outs * Daily weights * Consult cardiology * maintaine IV hydration with minimal rate of 50 mL per hour * Avoids over hydrating the patient considering his reduced ejection fraction of 30% * Patient's daily dose of by mouth Lasix 20 mg and spironolactone was held by admitting team due to dehydration- agree with holding diuretics for now Hematology: Normocytic anemia with hemoglobin of 8.5 and leukocytosis. * No fever no symptoms of infection. Check daily CBC * Anemia at his baseline. * Stop ferrous sulfate due to high risk of aspiration Metabolic: Low T3 possibly in an acute ill the patient. The measurements of thyroid function tests in severely sick patient is not recommended unless there is a high clinical suspicious of thyroid dysfunction. His patient below T3 could be related to acute sickness or prolonged treatment with carvedilol. * No further action is required at this moment; refer to tool design checker as an outpatient * Dehydration: Pain IV fluids 50 mL per hour-D5 half saline * increased HCO3: In the setting of obstructive sleep apnea * Chronic kidney stage-3 creatinine 1.5 at his baseline Diet * NPO * IV hydration with D5 half saline 50 mL per hour * IV pantoprazole 40 mg Neurology * Altered mental status and confusion * Hold citalopram Pain medication * Avoids all the sedative and hypnotic medications is altered mental status and hypercapnic respiratory failure * IV Tylenol for pain Subcutaneous heparin 5000 units every 8 DVT prophylaxis Full code TTS with patient 1 h ICU time Problem List: 1. NSTEMI 2. S/P CABG (coronary artery bypass graft) 3. Leukocytosis 4. HFrEF (heart failure with reduced ejection fraction) 5. Acute on chronic respiratory failure with hypoxia and hypercapnia Consult Acknowledgment - Thank you for your consult request. NIGEL GARCIA MD 03/09/16 1121: Assessment/Plan Other Findings/Comments: Nigel Anne M.D. have examined this patient, reviewed available EMR data, personally reviewed images, discussed with resident/PA/MEDICAL INTERPRETER, discussed management plan with housestaff and nursing staff, discussed managment plan all of healthcare providers, discussed management plan with patient and/or family, agreed with resident/PA/MEDICAL INTERPRETER. The past history and parts of the chart have been autopopulated. Impression 76-year-old man with hypercarbic respiratory failure. History of congestive heart disease. Plan - Solu-Medrol 40 mg IV every 8. - Resume BiPAP 20/6 - Ins and outs and diuresis as needed to keep him that even to negative fluid balance - Aspiration precautions - Discontinue theophylline - Nothing by mouth and convert meds to IV or hold - TR nebs - Would hold inhalers at this time due to lethargy TTS 60 min Consult Acknowledgment - Thank you for your consult request.
--- NOTE | 2016-03-09 11:36 | NUR ---
AT 0930 THE PT WAS PLACED BACK ON THE BIPAP AT 30% WITH AN IPAP OF 20 AND EPAP OF 6 WELL A RATE OF 24. AT 0943 THE PT WAS CHANGED FROM BEING A TELEMETRY PT TO BEING A CRITICAL CARE PT. ALL PO MEDS WERE HELD AND THEN DC'D THE PT IS NPO. THE PT WAS TOO DROWSY TO USE HIS SPIRIVA ND SYMBICORT INHALERS. DR ORO AWARE. THE PT HAD BEEN ON 500ML OF NS AT 50ML/HR FROMN THE ER. AT 1130 THE PT WAS PLACED ON D5 1/2 NS AT 50ML/HR.
--- NOTE | 2016-03-09 12:41 | NUR ---
PT HAVING A BEDSIDE ECHO PERFORMED. QUIK FLU SWAB OBTAINED.
[2016-03-09 16:00] VITALS: BP 120/60
--- NOTE | 2016-03-09 18:10 | Cons- Cardiology ---
General Information and HPI Consulting Request Date of Consult: 03/09/16 Requested By: KODAK BARRETT,BRAIN History of Present Illness: Mr. Mat David is a 76-year-old morbidly obese male with a history of former heavy tobacco use, COPD on home oxygen with previous exacerbations, obesity hyperventilation syndrome, obstructive sleep apnea on CPAP, previous stroke without residual deficits, CKD, chronic anemia, hypertension, dyslipidemia, diabetes mellitus, and coronary artery disease S/P previous PA's by ECG/left ventricular systolic dysfunction with previous heart failure s/p CABG 2010 at [facility] who presented via ambulance from his ECF ([facility]) on 03/08/2016 with lethargy and shortness of breath felt secondary to acute on chronic respiratory failure due to acute exacerbation COPD and obesity hypoventilation syndrome who we are asked to evaluate and help manage in regard to his positive troponin I. The patient is presently on BiPAP and cannot give any reliable history. There are also no family members present at this time. He was last hospitalized here (06/24-06/29/2015) with acute on chronic respiratory failure felt secondary to acute exacerbation of COPD and also at that time had a modest bump in his troponin that was felt mainly to be on the basis of demand ischemia, although further outpatient evaluation and management for worsening ischemic heart disease was also recommended. He was also hospitalized here (06/02-06/07/2015) with acute on chronic respiratory failure felt secondary to acute exacerbation of COPD. Allergies/Medications Allergies: Coded Allergies: NO KNOWN ALLERGIES (04/17/15) Home Med List: Albuterol Sulfate (Proair Hfa) 8.5 GM HFA.AER.AD 2-4 INH INH Q6P PRN ASTHMA Aspirin 81 MG CTB 1 TAB PO DAILY STROKE (Reported) Azithromycin (Zithromax) 250 MG TABLET 1 DP PO AD COPD/BRONCHITIS 2 the first day followed by 1 for days 2-5 Carvedilol (Coreg) 6.25 MG TAB 1 TAB PO BID HEART (Reported) CLOPIDOGREL BISULFATE (Clopidogrel) 75 MG TAB 1 TAB PO DAILY STROKE (Reported ) Escitalopram Oxalate 10 MG TABLET 1 TAB PO DAILY MENTAL HEALTH (Reported) Ferrous Sulfate 325 MG TAB 1 TAB PO DAILY SUPPLEMENT (Reported) FLUTICASONE/SALMETEROL (Advair 250-50 Diskus) 1 DSK DSK 1 PUFF INH BID COPD Furosemide 20 MG TAB 1 TAB PO DAILY PEDAL EDEMA Glyburide 5 MG TAB 1 TAB PO BID DIABETES Ipratropium/Albuterol Sulfate (Iprat-Albut 0.5-3(2.5) MG/3 Ml) 3 ML AMPUL.NEB 1 AMP INH TID COPD (Reported) Losartan Potassium 25 MG TABLET 25 MG PO DAILY HTN,KIDNEY Metformin Hydrochloride (Metformin HCl) 500 MG TAB 1 TAB PO BID DIABETES ( Reported) Prednisone (Deltasone) 20 MG TABLET 3 TAB PO DAILY ASTHMA Ranitidine (Zantac) 150 MG TAB 1 TAB PO DAILY REFLUX (Reported) Rosuvastatin Calcium (Crestor) 10 MG TAB 1 TAB PO DAILY CHOLESTEROL (Reported ) Spironolactone (Aldactone) 25 MG TABLET 1 TAB PO DAILY DIURETIC (Reported) Theophylline Anhydrous (Sohail-24) 100 MG CAP.ER.24H 1 CAP PO DAILY COPD ( Reported) Tiotropium [place] (Spiriva) 18 MCG CAP 1 CAP INH DAILY COPD (Reported) Review of Systems Review of Systems: Unobtainable, secondary to patient's clinical status. 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 FH: diabetes mellitus MOTHER FH: breast cancer SISTER, ; Cause: Motor vehicle accident. BROTHER, ; Cause: Cancer. FH: cancer Psychosocial History Where Do You Live? Extended Care Facility Services at Home: Nursing, Oxygen Smoking Status: Former Smoker (Used to smoke 3 PPD) ETOH Use: denies use Illicit Drug Use: denies illicit drug use Living Will? yes Functional Ability ADLs Independent: dressing, eating, toileting, bathing. IADLs Independent: shopping, housework, finances, food prep, telephone, transportation , medication admin. Employment History Employment: Retired Profession/Employer [employer] Exam & Diagnostic Data Vital Signs and I&O Vital Signs Date Time Temp Pulse Resp B/P Pulse O2 O2 Flow FiO2 Ox Delivery Rate 03/09 1658 69 93 03/09 1600 95 BIPAP 30% 03/09 1600 96.6 69 24 120/60 95 BIPAP 30% 03/09 1323 Nasal 2.0L Cannula 03/09 1236 66 96 03/09 1200 98 BIPAP 30% 03/09 0940 96 BIPAP 30% 03/09 0939 66 96 03/09 0900 96 Nasal 2.0L Cannula 03/09 0900 97.2 90 24 120/62 96 Nasal 2.0L Cannula 03/09 0820 90 97 03/09 0732 98.0 66 24 125/66 99 BIPAP 30% 03/09 0626 67 96 03/09 0622 97 BIPAP 30% 03/09 0553 97.4 64 26 124/56 97 BIPAP 30% 03/09 0346 64 96 03/09 0155 64 96 03/09 0132 97.1 68 20 117/57 98 BIPAP 30% 03/09 0131 97.1 03/08 2350 81 96 03/08 2340 99 Nasal 1.0L Cannula 03/08 2250 97.2 67 18 116/56 99 Nasal 1.0L Cannula Intake & Output 03/09 1600 03/09 0800 03/09 0000 03/08 1600 03/08 0800 03/08 0000 Intake Total 342 Output Total 710 Balance -368 Intake, IV 342 Number 0 Bowel Movements Output, Urine 710 Patient 240 lb 200 lb Weight Physical Exam: Well-developed, morbidly obese elderly male in no acute distress with nasal oxygen in place. Vital signs: See above. HEENT: Normocephalic, atraumatic, EOMI, moist mucous membranes. Neck: No JVD, no bruits. Lungs: Decreased breath sounds bilaterally. Heart: S1, S2 with grade 2/6 systolic murmur. Abdomen: Soft, nontender, positive bowel sounds. Extremities: No edema. Labs/Sumanth Results: Laboratory Tests 03/09 03/09 03/09 1225 1220 0630 Blood Gas pH (7.35 - 7.45 PH) 7.33 L 7.31 L pCO2 (35 - 45 TORR) 56 H 57 H pO2 (80 - 100 TORR) 78 L 77 L HCO3 (21 - 28 MEQ/L) 29 H 28 ABG O2 Sat (Measured) (>96.0 %) 94.0 L 94.0 L P-50 (Temp Corrected) Y Carboxyhemoglobin (1.5 - 5.0 %) 0.3 L 0.5 L O2 Concentration % 30% 30% Temperature (97.0 - 100.0 FARH) 97.2 97.4 Respiration Rate (BPM) 24 24 O2 Delivery Method BIPAP VISION-FFM Vent Mode ST ST Expiratory Pressure (CM H2O P) 6 4 Inspiratory Pressure (CM H2O P) 20 16 Chemistry Troponin I (<0.11 ng/ml) 0.15 *H Miscellaneous Phlebotomy Draw Site RIGHT RADIAL RIGHT RADIAL 03/09 03/09 0610 0600 Chemistry Hemoglobin A1c Pending Urines Urine Color (YEL,AMB,STR) YEL Urine Clarity (CLEAR) CLEAR Urine pH (5.0 - 8.0) 6.0 Ur Specific [place] (1.001 - 1.035) 1.020 Urine Protein (NEG,<30 MG/DL) TRACE H Urine Ketones (NEG) NEG Urine Nitrite (NEG) NEG Urine Bilirubin (NEG) NEG Urine Urobilinogen (0.1 - 1.0 EU/dl) 0.2 Ur Leukocyte Esterase (NEG) NEG Ur Microscopic SEDIMENT EXAMINED Urine WBC (0 - 2 /HPF) RARE Ur Epithelial Cells (NONE,FEW) RARE Urine Hemoglobin (NEG) NEG Urine Glucose (N MG/DL) NEG 03/09 03/09 0553 0200 Blood Gas pH (7.35 - 7.45 PH) 7.30 *L pCO2 (35 - 45 TORR) 67 *H pO2 (80 - 100 TORR) 75 L HCO3 (21 - 28 MEQ/L) 33 H ABG O2 Sat (Measured) (>96.0 %) 94.0 L P-50 (Temp Corrected) Y Carboxyhemoglobin (1.5 - 5.0 %) 0.7 L O2 Concentration % 30% Temperature (97.0 - 100.0 FARH) 97.1 Respiration Rate (BPM) 20 O2 Delivery Method VISION-FFM Vent Mode ST Expiratory Pressure (CM H2O P) 4 Inspiratory Pressure (CM H2O P) 16 Chemistry Sodium (137 - 145 mmol/L) 142 Potassium (3.5 - 5.1 mmol/L) 5.1 Chloride (98 - 107 mmol/L) 101 Carbon Dioxide (22 - 30 mmol/L) 33 H Anion Gap (5 - 16) 8 BUN (9 - 20 mg/dL) 39 H Creatinine (0.7 - 1.2 mg/dL) 1.5 H Estimated GFR (>60 ml/min) 46 L BUN/Creatinine Ratio (7 - 25 %) 26.0 H Phosphorus (2.5 - 4.5 mg/dL) 3.9 Magnesium (1.6 - 2.3 mg/dL) 2.2 Troponin I (<0.11 ng/ml) 0.23 *H Triglycerides (<150 mg/dL) 112 Cholesterol (< 200 MG/DL) 113 LDL Cholesterol, Calc (65 - 129 mg/dL) 51 L HDL Cholesterol (40 - 60 mg/dL) 40 Cholesterol/HDL Ratio (0.00 - 4.88 %) 3 Free T4 (0.78 - 2.44 ng/dL) 1.09 Total T3 (0.97 - 1.69 ng/mL) 0.82 L TSH &T3 &Free T4 Intrp (0.27 - 4.20 uIU/mL) 1.010 Hematology CBC w Diff NO MAN DIFF REQ WBC (4.8 - 10.8 /CUMM) 13.2 H RBC (4.70 - 6.10 /CUMM) 2.91 L Hgb (14.0 - 18.0 G/DL) 8.5 L Hct (42 - 52 %) 26.0 L MCV (80.0 - 94.0 FL) 89.1 MCH (27.0 - 31.0 PG) 29.2 RDW (11.5 - 14.5 %) 13.9 Plt Count (130 - 400 /CUMM) 294 MPV (7.4 - 10.4 FL) 8.4 Gran % (42.2 - 75.2 %) 90.6 H Lymphocytes % (20.5 - 51.1 %) 8.4 L Monocytes % (1.7 - 9.3 %) 0.8 L Eosinophils % (0 - 5 %) 0.1 Basophils % (0.0 - 2.0 %) 0.1 Absolute Granulocytes (1.4 - 6.5 /CUMM) 11.9 H Absolute Lymphocytes (1.2 - 3.4 /CUMM) 1.1 L Absolute Monocytes (0.10 - 0.60 /CUMM) 0.1 L Absolute Eosinophils (0.0 - 0.7 /CUMM) 0 Absolute Basophils (0.0 - 0.2 /CUMM) 0 PUBS MCHC (33.0 - 37.0 G/DL) 32.7 L Miscellaneous Phlebotomy Draw Site RIGHT RADIAL 03/08 03/08 6558 0405 Blood Gas pH (7.35 - 7.45 PH) 7.32 L pCO2 (35 - 45 TORR) 72 *H pO2 (80 - 100 TORR) 83 HCO3 (21 - 28 MEQ/L) 36 H ABG O2 Sat (Measured) (>96.0 %) 94.0 L Carboxyhemoglobin (1.5 - 5.0 %) 1.2 L O2 Concentration % 1L O2 Delivery Method NC Chemistry Sodium (137 - 145 mmol/L) 140 Potassium (3.5 - 5.1 mmol/L) 4.1 Chloride (98 - 107 mmol/L) 97 L Carbon Dioxide (22 - 30 mmol/L) 37 H Anion Gap (5 - 16) 6 BUN (9 - 20 mg/dL) 40 H Creatinine (0.7 - 1.2 mg/dL) 1.6 H Estimated GFR (>60 ml/min) 42 L BUN/Creatinine Ratio (7 - 25 %) 25.0 Glucose (65 - 99 mg/dL) 93 Calcium (8.4 - 10.2 mg/dL) 8.9 Total Bilirubin (0.2 - 1.3 mg/dL) 0.3 AST (17 - 59 U/L) 16 L ALT (21 - 72 U/L) 22 Alkaline Phosphatase (< 127 U/L) 61 Troponin I (<0.11 ng/ml) 0.33 *H [id number] Pept (<125 pg/mL) 6190 H Total Protein (6.3 - 8.2 g/dL) 5.9 L Albumin (3.5 - 5.0 g/dL) 3.3 L Globulin (1.9 - 4.2 gm/dL) 2.6 Albumin/Globulin Ratio (1.1 - 2.2 %) 1.3 Cortisol PM Sample (1.7 - 14.1) 14.0 Hematology CBC w Diff NO MAN DIFF REQ WBC (4.8 - 10.8 /CUMM) 13.5 H RBC (4.70 - 6.10 /CUMM) 2.95 L Hgb (14.0 - 18.0 G/DL) 8.5 L Hct (42 - 52 %) 26.0 L MCV (80.0 - 94.0 FL) 88.3 MCH (27.0 - 31.0 PG) 29.0 RDW (11.5 - 14.5 %) 13.3 Plt Count (130 - 400 /CUMM) 319 MPV (7.4 - 10.4 FL) 8.2 Gran % (42.2 - 75.2 %) 72.7 Lymphocytes % (20.5 - 51.1 %) 15.7 L Monocytes % (1.7 - 9.3 %) 9.6 H Eosinophils % (0 - 5 %) 1.8 Basophils % (0.0 - 2.0 %) 0.2 Absolute Granulocytes (1.4 - 6.5 /CUMM) 9.8 H Absolute Lymphocytes (1.2 - 3.4 /CUMM) 2.1 Absolute Monocytes (0.10 - 0.60 /CUMM) 1.3 H Absolute Eosinophils (0.0 - 0.7 /CUMM) 0.2 Absolute Basophils (0.0 - 0.2 /CUMM) 0 PUBS MCHC (33.0 - 37.0 G/DL) 32.8 L Miscellaneous Phlebotomy Draw Site LEFT RADIAL Diagnostic Data EKG Results (03/09/2016) sinus rhythm, right bundle branch block, indeterminate age inferior wall myocardial infarction, and old anterior wall myocardial infarction. Less ectopy when compared to earlier tracing. CXR Results (03/08/2016) enlarged cardiac silhouette with limits assessment of the left base. No definite acute findings. Other Results Echocardiogram (06/25/2015) Normal left ventricular size with mild left ventricular hypertrophy. Moderate to severely decreased systolic function. The ejection fraction is visually estimated at 30%. The right ventricle is normal in size and function. The right atrium is normal in size. The left atrium is milldy enlarged. The interatrial septum is intact. The mitral valve is normal in structure and function. There is no mitral regurgitation. Structurally normal aortic valve without significant sclerosis or stenosis. There is no aortic regurgitation. The tricuspid valve is normal in structure and function. There is mild tricuspid regurgitation. Pulmonary artery systolic pressure is normal. Poorly visualized pulmonic valve. There is no pulmonic regurgitation. Normal pericardium without effusion. Normal aortic root dimension. The aortic arch and great vessels are well seen and are normal. Assessment/Plan Assessment/Plan Mr. David is an elderly morbidly obese male with a history of former heavy tobacco use, COPD on home oxygen with multiple previous exacerbations, obesity hyperventilation syndrome, obstructive sleep apnea on CPAP, previous stroke without residual deficits, chronic kidney disease, chronic anemia, hypertension, dyslipidemia, diabetes mellitus, and coronary artery disease S/P previous PA's by ECG/left ventricular systolic dysfunction with previous heart failure s/p CABG 2010 at [facility] who returned with lethargy and shortness of breath and who is again found to be having an acute exacerbation of his COPD with a modest troponin elevation. There is no suggestion in the record that he had any recent complaints of chest discomfort, his electrocardiograms have not shown any acute changes, and his troponins are only modestly elevated suggesting that the troponin I elevation is on the basis of demand ischemia (acute illness, left ventricular hypertrophy, etc.), acute respiratory failure, chronic kidney disease, etc. Will discuss with patient's son what, if any cardiovascular evaluation has taken place since his last admission, as it was recommended that cardiac catheterization be considered. Recommendations: * Continue ICU admission, total respiratory care, BiPAP, antimicrobial therapy, steroids, etc. * Repeat echocardiogram to reassess his left ventricular systolic/diastolic function, degree of left ventricular hypertrophy, estimated PA systolic pressure , etc. * Continue to gently hydrate and follow-up CXR in a.m. * Check all stools for occult blood and continue on antiplatelet if stool negative and H/H stable, as well as, beta benigno * Continue to hold diuretic, angiotensin receptor benigno, mineralocorticoid ( aldosterone) receptor antagonist for the short-term. * Deep venous thrombosis prophylaxis. Further recommendations will follow, Thank you. Consult Acknowledgment - Thank you for your consult request.
[2016-03-09 23:30] VITALS: BP 114/60
[2016-03-10 05:24] LABS: ABSOLUTE BASOPHIL COUNT 0 /CUMM (0.0-0.2); ABSOLUTE EOSINOPHIL COUNT 0 /CUMM (0.0-0.7); ABSOLUTE GRANULOCYTE CT 15.6 /CUMM (1.4-6.5); ABSOLUTE LYMPH COUNT 1.1 /CUMM (1.2-3.4); ABSOLUTE MONOCYTE COUNT 0.7 /CUMM (0.10-0.60); BASOPHIL % 0 % (0.0-2.0); EOSINOPHIL % 0 % (0-5); HEMATOCRIT 23.1 % (42-52); MEAN CORPUSCULAR HGB CONC 32.8 G/DL (33.0-37.0); MEAN CORPUSCULAR VOLUME 88.4 FL (80.0-94.0); MEAN PLATELET VOLUME 8.7 FL (7.4-10.4); RBC DISTRIBUTION WIDTH 13.8 % (11.5-14.5); RED BLOOD CELL CT 2.61 /CUMM (4.70-6.10); WHITE BLOOD CELL COUNT 17.3 /CUMM (4.8-10.8)
[2016-03-10 06:00] LABS: PLATELET COUNT 291 /CUMM (130-400)
[2016-03-10 08:00] VITALS: BP 143/65
--- NOTE | 2016-03-10 08:22 | RADIOLOGY REPORT ---
EXAMINATION: XR PORTABLE CHEST CLINICAL INFORMATION: COPD. Shortness of breath lethargy COMPARISON: Multiple prior radiographs most recent 03/08/2016. TECHNIQUE: Portable view of the chest was obtained. FINDINGS: Postop changes with sternotomy wires in place. The cardiac silhouette remains enlarged and unchanged limiting the assessment of the left lower hemithorax . The lungs are otherwise clear. IMPRESSION: Postop changes. Stable enlarged cardiac silhouette. Limited evaluation of the left base as noted above. However no change
--- NOTE | 2016-03-10 11:25 | PN- CRCU ---
Subjective HPI/Critical Care Issues: Patient seen and examined this morning. He is on BiPAP ABG is somewhat improved and he is awake and alert. He feels more comfortable on the shortness of breath has improved. There is no nausea no vomiting no diarrhea or constipation and no chest pain. He has no leg edema at this point. Objective Current Medications: Current Medications Sig/Amadeo Start time Last Medication Dose Route Stop Time Status Admin Acetaminophen 1,000 MG Q6P PRN 03/09 1145 AC IV Acetaminophen 650 MG Q6P PRN 03/09 0100 DC PO Albuterol Sulfate 3 ML TID 03/09 1600 AC 03/10 INH 0805 Albuterol Sulfate 3 ML TID 03/09 1000 DC 03/09 INH 0937 Aspirin 81 MG DAILY 03/10 1030 AC 03/10 PO 1022 Aspirin 300 MG DAILY 03/10 1000 DC OH Aspirin 81 MG DAILY 03/09 1000 DC PO Atorvastatin Calcium 40 MG 1700 03/09 1700 CAN PO Azithromycin 250 MG DAILY 03/11 1000 AC PO Azithromycin 250 MG DAILY 03/10 1014 DC PO Azithromycin 250 MG DAILY 03/10 1000 CAN Dextrose/Water 250 ML IV Azithromycin 500 MG DAILY 03/10 1000 DC 03/10 Dextrose/Water 250 ML IV 0953 Azithromycin 250 MG 2200 03/09 2200 CAN Dextrose/Water 250 ML IV Azithromycin 250 MG DAILY 03/09 1129 CAN IV Budesonide/ 2 PUF BID 03/09 1000 DC Formoterol Fumarate INH Carvedilol 3.125 MG BID 03/10 2200 AC PO Carvedilol 3.125 MG ONCE ONE 03/10 1030 DC 03/10 PO 03/10 1031 1021 Carvedilol 3.125 MG BID 03/09 1000 DC PO Clopidogrel Bisulfate 75 MG DAILY 03/10 1030 AC 03/10 PO 1022 Clopidogrel Bisulfate 75 MG DAILY 03/09 1000 DC PO Dextrose/Sodium 1,000 ML Q20H 03/09 1130 DC 03/10 Chloride IV 0637 Escitalopram Oxalate 10 MG DAILY 03/10 1030 AC 03/10 PO 1021 Escitalopram Oxalate 10 MG DAILY 03/09 1000 DC PO Ferrous Sulfate 325 MG DAILY 03/10 1030 AC 03/10 PO 1021 Ferrous Sulfate 325 MG DAILY 03/09 1000 DC PO Heparin Sodium 5,000 UNIT Q8 03/09 0600 AC 03/10 (Porcine) SC 0636 Insulin Human Regular 0 Q6 03/09 0600 AC 03/10 SC 0636 Ipratropium Diana 2.5 ML TID 03/09 1600 AC 03/10 INH 0805 Methylprednisolone 40 MG Q12 03/10 1000 AC IV Methylprednisolone 40 MG Q8 03/09 1400 DC 03/10 IV 0636 Methylprednisolone 40 MG Q12 03/09 1000 DC IV Metoprolol Tartrate 1.25 MG Q6 PRN 03/09 1145 AC IV Oxycodone/ 1 TAB Q6P PRN 03/10 1030 AC Acetaminophen PO Oxycodone/ 2 TAB Q6P PRN 03/10 1030 AC Acetaminophen PO Oxycodone/ 1 TAB Q6P PRN 03/09 0100 DC Acetaminophen PO Oxycodone/ 2 TAB Q6P PRN 03/09 0100 DC Acetaminophen PO Pantoprazole Sodium 40 MG DAILY 03/09 1000 DC 03/10 IV 0953 Theophylline 100 MG DAILY 03/09 1000 DC PO Tiotropium Diana 1 PUF DAILY 03/09 1000 DC INH Vital Signs & I&O Last 24 Hrs of Vitals and I&O: Vital Signs Date Time Temp Pulse Resp B/P Pulse O2 O2 Flow FiO2 Ox Delivery Rate 03/10 1021 88 110/58 03/10 0809 68 96 03/10 0608 75 95 03/10 0400 94 BIPAP 30% 03/10 0345 64 95 03/10 0229 66 94 03/10 0000 94 BIPAP 30% 03/09 2330 96.9 70 24 114/60 94 BIPAP 30% 03/09 2225 72 94 03/09 2032 92 BIPAP 30% 03/09 2000 94 BIPAP 30% 03/09 1920 69 92 03/09 1658 69 93 03/09 1600 95 BIPAP 30% 03/09 1600 96.6 69 24 120/60 95 BIPAP 30% 03/09 1323 Nasal 2.0L Cannula 03/09 1236 66 96 03/09 1200 98 BIPAP 30% Intake & Output 03/10 1600 03/10 0800 03/10 0000 Intake Total 387 344 Output Total 300 400 Balance 87 -56 Intake, IV 387 344 Output, Urine 300 400 Patient 239 lb Weight Exam Other Physical Findings: General - Alert, awake and oriented HEENT - normocephalic, atraumatic Cardiovascular - S1, S2 Lungs - mild crackles at the bases and diminished breath sounds overall Abdomen - soft, bowel sounds positive, no tenderness Extremities - without edema or cyanosis Results Last 24 Hrs of Lab Results: Laboratory Tests 03/10/16 0425: Anion Gap 7, Estimated GFR 46 L, Glucose 248 H, Calcium 8.9, Phosphorus 2.9, Magnesium 2.3, Total Bilirubin 0.3, AST 11 L, ALT 22, Albumin 3.1 L, CBC w Diff NO MAN DIFF REQ, RBC 2.61 L, MCV 88.4, MCH 29.0, RDW 13.8, MPV 8.7, Gran % 90.0 H, Lymphocytes % 6.2 L, Monocytes % 3.8, Eosinophils % 0, Basophils % 0 L, Absolute Granulocytes 15.6 H, Absolute Lymphocytes 1.1 L, Absolute Monocytes 0.7 H, Absolute Eosinophils 0, Absolute Basophils 0, PUBS MCHC 32.8 L 03/09/16 1225: Troponin I 0.15 *H 03/09/16 1220: pH 7.33 L, pCO2 56 H, pO2 78 L, HCO3 29 H, ABG O2 Sat (Measured) 94.0 L, Carboxyhemoglobin 0.3 L, O2 Concentration % 30%, Temperature 97.2, Respiration Rate 24, O2 Delivery Method BIPAP, Vent Mode ST, Expiratory Pressure 6, Inspiratory Pressure 20, Phlebotomy Draw Site RIGHT RADIAL Impression/Plan Impression/Plan Impression/Plan: Impression 76-year-old man with hypercarbic respiratory failure. History of congestive heart disease. Plan - Reduce Solu-Medrol 40 mg IV every 12. - Nocturnal and as needed BiPAP 20/6, ensure he has disordered for discharge - Ins and outs and diuresis as needed to keep him that even to negative fluid balance - Aspiration precautions - Off theophylline -Swallow evaluation at the bedside and begin a full liquid diet if able - TRC nebs - Would hold inhalers at this time due to lethargy TTS 40 min
--- NOTE | 2016-03-10 12:16 | ECHOCARDIOGRAM REPORT ---
MARIE FLORENTINO Age: 76 : 1940 Gender: M Exam Date: 03/09/2016 12:25 Exam Location: [facility] Ht (in): 62 Wt (lb): 200 BSA: 2.04 BP: 140 / 53 Ordering Physician: RDAHA PAULINO MD Referring Physician: RADHA PAULINO MD Technologist: Isidro Harris [facility] Room Number: [id number] Indications: MYOCARDIAL ISCHEMIA/ND Rhythm: Sinus Technical Quality: Poor, Technically difficult study FINDINGS Left Ventricle Mild left ventricular dilatation. Borderline to mild concentric left ventricular hypertrophy. Mildly reduced global left ventricular systolic function. Mildly abnormal left ventricular ejection fraction estimated at 40-45%. Right Ventricle Right ventricle not well visualized, but appeared dilated. Right Atrium Right atrium not well visualized. Left Atrium Mild left atrial dilatation. Mitral Valve Moderate mitral annular calcification. Mitral valve thickened. Trace mitral regurgitation. Aortic Valve Aortic valve not well visualized. Mild aortic sclerosis. No aortic valve stenosis or regurgitation. Tricuspid Valve Tricuspid valve not well visualized, grossly normal. Trace tricuspid regurgitation. Unable to estimate the right ventricular systolic pressure. Pulmonic Valve Pulmonic valve not well visualized. Pericardium No pericardial effusion. Great Vessels Normal size aortic root. Mildly dilated inferior vena cava. CONCLUSIONS Mild left ventricular dilatation. Borderline to mild concentric left ventricular hypertrophy. Mildly reduced global left ventricular systolic function. Mildly abnormal left ventricular ejection fraction estimated at 40- 45%. Right ventricle not well visualized, but appeared dilated. Right atrium not well visualized. Mild left atrial dilatation. Trace mitral regurgitation. Trace tricuspid regurgitation. Unable to estimate the right ventricular systolic pressure. Mildly dilated inferior vena cava. Shady Crouch M.D. (Electronically Signed) Final Date: 10 March 2016 12:15 MEASUREMENTS (Male / Female) Normal Values 2D ECHO LV Diastolic Diameter PLAX 6.2 cm 4.2 - 5.9 / 3.9 - 5.3 cm LV Systolic Diameter PLAX 5.1 cm 2.1 - 4.0 cm LV Fractional Shortening PLAX 17.7 % 25 - 46 % LV Ejection Fraction 2D Teich 36.2 % IVS Diastolic Thickness 1.2 cm LVPW Diastolic Thickness 1.0 cm LV Relative Wall Thickness 0.4 LVOT Diameter 2.2 cm Aortic Root Diameter 3.2 cm LA Volume 85.0 cm 18 - 58 / 22 - 52 cm Ascending Aorta Diameter 2.9 cm DOPPLER AV Peak Velocity 163.0 cm/s AV Peak Gradient 10.6 mmHg AV Mean Velocity 122.0 cm/s AV Mean Gradient 7.0 mmHg AV Velocity Time Integral 45.1 cm LVOT Peak Velocity 100.0 cm/s LVOT Peak Gradient 4.0 mmHg LVOT Mean Velocity 74.5 cm/s LVOT Mean Gradient 3.0 mmHg LVOT Velocity Time Integral 26.7 cm LVOT Stroke Volume 101.5 cm AV Area Cont Eq vti 2.3 cm AV Area Cont Eq pk 2.3 cm MV Peak Velocity 122.0 cm/s MV Peak Gradient 6.0 mmHg MV Mean Velocity 67.9 cm/s MV Mean Gradient 2.0 mmHg Mitral E Point Velocity 97.2 cm/s Mitral A Point Velocity 100.0 cm/s Mitral E to A Ratio 1.0 MV PHT Velocity 130.0 cm/s MV Deceleration Kemper 620.0 cm/s MV Pressure Half Time 62.9 ms MV Area PHT 3.5 cm MV Deceleration Time 137.0 ms PV Peak Velocity 109.0 cm/s PV Peak Gradient 4.8 mmHg PV Mean Velocity 76.8 cm/s PV Mean Gradient 3.0 mmHg PV Velocity Time Integral 26.1 cm
[2016-03-10 16:00] VITALS: BP 110/52
--- NOTE | 2016-03-10 16:39 | PN- Cardiology ---
Subjective Subjective: Awake and alert with nasal oxygen in place. No complaints. Moderate ventricular ectopy including short runs of ventricular tachycardia observed. Objective Vital Signs and I&Os Vital Signs Date Time Temp Pulse Resp B/P Pulse O2 O2 Flow FiO2 Ox Delivery Rate 03/10 1359 96 Nasal 2.0L Cannula 03/10 1021 88 110/58 03/10 0809 68 96 03/10 0608 75 95 03/10 0400 94 BIPAP 30% 03/10 0345 64 95 03/10 0229 66 94 03/10 0000 94 BIPAP 30% 03/09 2330 96.9 70 24 114/60 94 BIPAP 30% 03/09 2225 72 94 03/09 2032 92 BIPAP 30% 03/09 2000 94 BIPAP 30% 03/09 1920 69 92 03/09 1658 69 93 Intake & Output 03/10 1600 03/10 0800 03/10 0000 03/09 1600 03/09 0800 03/09 0000 Intake Total 387 344 342 Output Total 300 400 710 Balance 87 -56 -368 Intake, IV 387 344 342 Number 0 Bowel Movements Output, Urine 300 400 710 Patient 239 lb 240 lb 200 lb Weight Physical Exam: Well-developed, morbidly obese elderly male in no acute distress with nasal oxygen in place. Vital signs: See above. HEENT: Normocephalic, atraumatic, EOMI, moist mucous membranes. Neck: No JVD, no bruits. Lungs: Decreased breath sounds bilaterally with a few crackles at the bases. Heart: S1, S2 with grade 2/6 systolic murmur. Abdomen: Soft, nontender, positive bowel sounds. Extremities: No edema. Current Medications: Current Medications Sig/Amadeo Start time Last Medication Dose Route Stop Time Status Admin Acetaminophen 1,000 MG Q6P PRN 03/09 1145 DC IV Albuterol Sulfate 3 ML TID 03/09 1600 AC 03/10 INH 1348 Aspirin 81 MG DAILY 03/10 1030 AC 03/10 PO 1022 Aspirin 300 MG DAILY 03/10 1000 DC TN Azithromycin 250 MG DAILY 03/11 1000 AC PO Azithromycin 250 MG DAILY 03/10 1014 DC PO Azithromycin 500 MG DAILY 03/10 1000 DC 03/10 Dextrose/Water 250 ML IV 0953 Carvedilol 3.125 MG BID 03/10 2200 AC PO Carvedilol 3.125 MG ONCE ONE 03/10 1030 DC 03/10 PO 03/10 1031 1021 Clopidogrel Bisulfate 75 MG DAILY 03/10 1030 AC 03/10 PO 1022 Dextrose/Sodium 1,000 ML Q20H 03/09 1130 DC 03/10 Chloride IV 0637 Escitalopram Oxalate 10 MG DAILY 03/10 1030 AC 03/10 PO 1021 Ferrous Sulfate 325 MG DAILY 03/10 1030 AC 03/10 PO 1021 Heparin Sodium 5,000 UNIT Q8 03/09 0600 AC 03/10 (Porcine) SC 1411 Insulin Human Regular 0 Q6 03/09 0600 AC 03/10 SC 1230 Ipratropium [place] 2.5 ML TID 03/09 1600 AC 03/10 INH 1349 Methylprednisolone 40 MG Q12H 03/10 1800 AC IV Methylprednisolone 40 MG Q12 03/10 1000 DC IV Methylprednisolone 40 MG Q8 03/09 1400 DC 03/10 IV 0636 Metoprolol Tartrate 1.25 MG Q6 PRN 03/09 1145 DC IV Oxycodone/ 1 TAB Q6P PRN 03/10 1030 AC Acetaminophen PO Oxycodone/ 2 TAB Q6P PRN 03/10 1030 AC Acetaminophen PO Pantoprazole Sodium 40 MG DAILY 03/09 1000 DC 03/10 IV 0953 Results Last 48 Hrs of Labs/Mics: Laboratory Tests 03/10/16 0425: Anion Gap 7, Estimated GFR 46 L, Glucose 248 H, Calcium 8.9, Phosphorus 2.9, Magnesium 2.3, Total Bilirubin 0.3, AST 11 L, ALT 22, Albumin 3.1 L, CBC w Diff NO MAN DIFF REQ, RBC 2.61 L, MCV 88.4, MCH 29.0, RDW 13.8, MPV 8.7, Gran % 90.0 H, Lymphocytes % 6.2 L, Monocytes % 3.8, Eosinophils % 0, Basophils % 0 L, Absolute Granulocytes 15.6 H, Absolute Lymphocytes 1.1 L, Absolute Monocytes 0.7 H, Absolute Eosinophils 0, Absolute Basophils 0, PUBS MCHC 32.8 L 03/09/16 1225: Troponin I 0.15 *H 03/09/16 1220: pH 7.33 L, pCO2 56 H, pO2 78 L, HCO3 29 H, ABG O2 Sat (Measured) 94.0 L, Carboxyhemoglobin 0.3 L, O2 Concentration % 30%, Temperature 97.2, Respiration Rate 24, O2 Delivery Method BIPAP, Vent Mode ST, Expiratory Pressure 6, Inspiratory Pressure 20, Phlebotomy Draw Site RIGHT RADIAL 03/09/16 0630: pH 7.31 L, pCO2 57 H, pO2 77 L, HCO3 28, ABG O2 Sat (Measured) 94.0 L, P-50 (Temp Corrected) Y, Carboxyhemoglobin 0.5 L, O2 Concentration % 30%, Temperature 97.4, Respiration Rate 24, O2 Delivery Method VISION-FFM, Vent Mode ST, Expiratory Pressure 4, Inspiratory Pressure 16, Phlebotomy Draw Site RIGHT RADIAL 03/09/16 0610: Urine Color YEL, Urine Clarity CLEAR, Urine pH 6.0, Ur Specific [place] 1.020, Urine Protein TRACE H, Urine Ketones NEG, Urine Nitrite NEG, Urine Bilirubin NEG, Urine Urobilinogen 0.2, Ur Leukocyte Esterase NEG, Ur Microscopic SEDIMENT EXAMINED, Urine WBC RARE, Ur Epithelial Cells RARE, Urine Hemoglobin NEG, Urine Glucose NEG 03/09/16 0600: Hemoglobin A1c 6.3 H 03/09/16 0553: Anion Gap 8, Estimated GFR 46 L, BUN/Creatinine Ratio 26.0 H, Phosphorus 3.9, Magnesium 2.2, Troponin I 0.23 *H, Triglycerides 112, Cholesterol 113, LDL Cholesterol, Calc 51 L, HDL Cholesterol 40, Cholesterol/HDL Ratio 3, Free T4 1.09, Total T3 0.82 L, TSH &T3 &Free T4 Intrp 1.010, CBC w Diff NO MAN DIFF REQ , RBC 2.91 L, MCV 89.1, MCH 29.2, RDW 13.9, MPV 8.4, Gran % 90.6 H, Lymphocytes % 8.4 L, Monocytes % 0.8 L, Eosinophils % 0.1, Basophils % 0.1, Absolute Granulocytes 11.9 H, Absolute Lymphocytes 1.1 L, Absolute Monocytes 0.1 L, Absolute Eosinophils 0, Absolute Basophils 0, PUBS MCHC 32.7 L 03/09/16 0200: pH 7.30 *L, pCO2 67 *H, pO2 75 L, HCO3 33 H, ABG O2 Sat (Measured) 94.0 L, P- 50 (Temp Corrected) Y, Carboxyhemoglobin 0.7 L, O2 Concentration % 30%, Temperature 97.1, Respiration Rate 20, O2 Delivery Method VISION-FFM, Vent Mode ST, Expiratory Pressure 4, Inspiratory Pressure 16, Phlebotomy Draw Site RIGHT RADIAL 03/08/16 2325: Anion Gap 6, Estimated GFR 42 L, BUN/Creatinine Ratio 25.0, Glucose 93, Calcium 8.9, Total Bilirubin 0.3, AST 16 L, ALT 22, Alkaline Phosphatase 61, Troponin I 0.33 *H, [id number] Pept 6190 H, Total Protein 5.9 L, Albumin 3.3 L, Globulin 2.6, Albumin/Globulin Ratio 1.3, Cortisol PM Sample 14.0, CBC w Diff NO MAN DIFF REQ, RBC 2.95 L, MCV 88.3, MCH 29.0, RDW 13.3, MPV 8.2, Gran % 72.7, Lymphocytes % 15.7 L, Monocytes % 9.6 H, Eosinophils % 1.8, Basophils % 0.2, Absolute Granulocytes 9.8 H, Absolute Lymphocytes 2.1, Absolute Monocytes 1.3 H, Absolute Eosinophils 0.2, Absolute Basophils 0, PUBS MCHC 32.8 L 03/08/16 2310: pH 7.32 L, pCO2 72 *H, pO2 83, HCO3 36 H, ABG O2 Sat (Measured) 94.0 L, Carboxyhemoglobin 1.2 L, O2 Concentration % 1L, O2 Delivery Method NC, Phlebotomy Draw Site LEFT RADIAL Microbiology 03/09 839 UPPER RESP: Surveillance Culture - COMP 03/09 839 GI: Surveillance Culture - COMP 03/09 609 URINE ROUT: Legionella Antigen - COMP 03/09 609 URINE ROUT: Streptococcus pneumoniae Antigen (M - COMP Recent Imaging Studies: CXR (03/10/2016) Postop changes. Stable enlarged cardiac silhouette. Limited evaluation of the left base as noted above. However, no change Echocardiogram (03/09/2017) Mild left ventricular dilatation with borderline to mild concentric left ventricular hypertrophy, and mildly reduced global systolic function with an estimated ejection fraction of 40-45%, poorly visualized and dilated right ventricle, poorly visualized right atrium, mild left atrial dilatation, age-related valvular changes, no pericardial effusion, normal size aortic root, and mildly dilated inferior vena cava. The Doppler portion of the study revealed physiologic mitral and tricuspid regurgitation. Assessment/Plan Assessment/Plan Mr. David is an elderly morbidly obese male with a history of former heavy tobacco use, COPD on home oxygen with multiple previous exacerbations, obesity hyperventilation syndrome, obstructive sleep apnea on CPAP, previous stroke without residual deficits, chronic kidney disease, chronic anemia, hypertension, dyslipidemia, diabetes mellitus, and coronary artery disease S/P previous PR's by ECG/left ventricular systolic dysfunction with previous heart failure s/p CABG 2010 at [facility] who returned with lethargy and shortness of breath and who is again found to be having an acute exacerbation of his COPD with a modest troponin elevation. There is no suggestion in the record that he had any recent complaints of chest discomfort, his electrocardiograms have not shown any acute changes, and his troponins are only modestly elevated suggesting that the troponin I elevation is on the basis of demand ischemia (acute illness, left ventricular hypertrophy, etc.), acute respiratory failure, chronic kidney disease, etc. Will discuss with patient's son what, if any cardiovascular evaluation has taken place since his last admission, as it was recommended that cardiac catheterization be considered. Clinically much improved today, although more ventricular ectopy which is of concern. * Continue ICU admission, total respiratory care, BiPAP, antimicrobial therapy, steroids, etc. * Note increased WBC count and GPC in urine from 03/09/2016 urine culture. * Echocardiogram revealed improved overall left ventricular function. * Continue to encourage by mouth intake for hydration. * Evaluate anemia. Given known history of coronary artery disease would maintain hemoglobin at or above 8 g/dl. * Check all stools for occult blood and continue on antiplatelets, if stool negative for occult blood and H/H stable, as well as, beta benigno. * Continue to hold diuretic, angiotensin receptor benigno, mineralocorticoid ( aldosterone) receptor antagonist for the short-term. * Consider nephrology consultation, as BUN/creatinine not improving with hydration. * Deep venous thrombosis prophylaxis. Continue telemetry? Yes
--- NOTE | 2016-03-10 17:24 | PN- Resident CRCU ---
Subjective HPI/CRCU Issues: Since admission yesterday morning patient has been on BiPAP. He is more awake and responsive this a.m. he is alert and oriented 3. This is much improved from previous exam where tita matos was required to get any response. Patient denied any pain, and stated his breathing felt much better. He was interested in trying to come off BiPAP. 24 Hour Events: No acute overnight events. 24 hour vitals include: heart rate maximum 90 at first-degree AV block, Respiratory rate max noted to be 24 Blood pressure: 159-102/58-49. BiPAP: 20/60 at 30% oxygen. Patient satting at 92% on O2 Objective Vital Signs & I&O Last 8 Hrs of Vitals and I&O: Intake & Output 03/10 1600 Intake Total Output Total Balance Patient 108.21 kg Weight Exam General Appearance: well developed/nourished, no apparent distress, alert, awake , with BiPAP Head: atraumatic, normal appearance Ears, Nose, Throat: normal pharynx Neck: normal inspection, supple Respiratory: given patient was on BiPAP L unable to move him for adequate auscultation of lung [place] however, peripheral exam showed decreased air movement. He was rhonchorous. Otherwise no wheezes were appreciated. Cardiovascular: regular rate/rhythm Gastrointestinal: normal bowel sounds, soft, non-tender Extremities: no edema Nutrition Nutrition: NPO Current Medications: Current Medications Sig/Amadeo Start time Last Medication Dose Route Stop Time Status Admin Acetaminophen 1,000 MG Q6P PRN 03/09 1145 DC IV Albuterol Sulfate 3 ML TID 03/09 1600 AC 03/10 INH 1348 Aspirin 81 MG DAILY 03/10 1030 AC 03/10 PO 1022 Aspirin 300 MG DAILY 03/10 1000 DC [place] Azithromycin 250 MG DAILY 03/11 1000 AC PO Azithromycin 250 MG DAILY 03/10 1014 DC PO Azithromycin 500 MG DAILY 03/10 1000 DC 03/10 Dextrose/Water 250 ML IV 0953 Carvedilol 3.125 MG BID 03/10 2200 AC PO Carvedilol 3.125 MG ONCE ONE 03/10 1030 DC 03/10 PO 03/10 1031 1021 Clopidogrel Bisulfate 75 MG DAILY 03/10 1030 AC 03/10 PO 1022 Dextrose/Sodium 1,000 ML Q20H 03/09 1130 DC 03/10 Chloride IV 0637 Escitalopram Oxalate 10 MG DAILY 03/10 1030 AC 03/10 PO 1021 Ferrous Sulfate 325 MG DAILY 03/10 1030 AC 03/10 PO 1021 Heparin Sodium 5,000 UNIT Q8 03/09 0600 AC 03/10 (Porcine) SC 1411 Insulin Human Regular 0 Q6 03/09 0600 AC 03/10 SC 1230 Ipratropium [place] 2.5 ML TID 03/09 1600 AC 03/10 INH 1349 Methylprednisolone 40 MG Q12H 03/10 1800 AC IV Methylprednisolone 40 MG Q12 03/10 1000 DC IV Methylprednisolone 40 MG Q8 03/09 1400 DC 03/10 IV 0636 Metoprolol Tartrate 1.25 MG Q6 PRN 03/09 1145 DC IV Oxycodone/ 1 TAB Q6P PRN 03/10 1030 AC Acetaminophen PO Oxycodone/ 2 TAB Q6P PRN 03/10 1030 AC Acetaminophen PO Pantoprazole Sodium 40 MG DAILY 03/09 1000 DC 03/10 IV 0953 Impression/Plan Impression/Problem List Impression: This is 76-year-old male with past medical history significant for COPD on 2 L home O2, JUANITO on nocturnal CPAP, hypertension, hyperlipidemia, type 2 diabetes mellitus, CAD with NH status post CABG, CVA, CK D stage III, recently admitted for observation 2/2 lethargy at [facility] and discharged to [facility] at [place]. He now presents to chief complaint of lethargy. Upon ED workup he was found to have acute on chronic hypercarbic and hypoxemic respiratory failure secondary to JUANITO and COPD exacerbation. He was placed on BiPAP, IV azithromycin and steroids. Initially did not improve, was transferred to ICU for further aggressive management and closer monitoring. Of note, patient had troponins of 0.33 in ED PLAN Respiratory: Patient has severe hypercarbic and hypoxemic respiratory failure requiring BiPAP 20/6 with FiO2 30. He has significant history of JUANITO on nocturnal CPAP and COPD on 2 L home O2. Per son he presented with somnolence at [facility] a few days ago, he was then placed under observation and discharged to [facility] at [place]. At [facility] he was given aggressive nebulizer therapy but failed to improved, he continued to become more lethargic iand he was transferred to [facility]. Compared to yesterday during admission, patient is greatly improved. His BEP shows sodium 141, potassium 4.6, blood 102, bicarbonate 31. Negative Legionella, negative strep, work up. * DC all inhalers * BiPAP with PEEP of 6, 20/6 and 30% O2 * If worsened check ABG * By mouth azithromycin 250 mg daily * IV Solu-Medrol 40 mg every 12 hours * Stop theophylline * Aspiration precautions ID: Stable. Continue to monitor. Patient does not have any evidence of infection. He has been afebrile in hospital. Elevated white count secondary to steroids. Does not endorse increased purulence or amount of sputum. We will watch off antibiotics * Follow-up cultures Cardiovascular: Previous echo suggested EF of 35%, echo done during this admission suggestive of EF 40-45%. Initially all by mouth meds, including cardioprotective meds, were held given that patient was nothing by mouth. We will now resume them. Additionally, patient has significant history of type 2 diabetes mellitus, hypertension, and NH status post CABG. Of note, during this admission patient had related troponin, highest reading at 0.33, subsequently trended downward. No EKG changes. This likely represents demand ischemia. This a.m. cholesterol panel showed total cholesterol 113, LDL 51, HDL 40. Today 's ins and outs include I: 1073, O: 1410 * Thank you cardiology consult * Resume cardiac medications including aspirin, clopidogrel, beta benigno, spironolactone, ARB. * Continue I's and O's * Patient is on D5 1/2 NS at 50 mL per hour. We will monitor and ensure his fluid balance remains roughly equal Hematology: Hemoglobin 7.6, hematocrit 23.1. Patient has no active source of bleed. Likely his crit dropped secondary to fluid resuscitation, as he had been eating very little at [facility] secondary to lethargy. However, given his history of CAD he might benefit from transfusion with goal 9. * Consider transfusion if patient is symptomatic Musculoskeletal: Stable from this perspective will continue to monitor GI: Patient haven't held nothing by mouth given here his lethargy and 24 hour BiPAP. If he passes swallow eval will resume regular diet and by mouth meds. Nephro: Patient has CK D stage III with creatinine at 1.5 (at baseline) today. We will avoid nephrotoxic medications and continue to monitor Endocrine: Patient has history of diabetes mellitus. A1c measured during this admission at 6.3. T4 within normal limits TSH low. A.m. cortisol 14; Normal limits. * Outpatient follow-up on TSH * Diabetic diet if he tolerates * Currently on nothing by mouth insulin regimen Problem List: 1. COPD 2. Diabetes mellitus 3. Dyslipidemia 4. hypercarbic respiratory failur 5. COPD exacerbation 6. Obesity 7. CKD (chronic kidney disease) stage 3, GFR 30-59 ml/min Pain Ratin Pain Location: NONE Tomorrow's Labs & Rationales: ICU bundle Plan DVT/Prophylaxis: pharmacological
[2016-03-11] VITALS: BP 108/64
[2016-03-11 06:11] LABS: ABSOLUTE BASOPHIL COUNT 0 /CUMM (0.0-0.2); ABSOLUTE EOSINOPHIL COUNT 0 /CUMM (0.0-0.7); ABSOLUTE GRANULOCYTE CT 19.3 /CUMM (1.4-6.5); ABSOLUTE LYMPH COUNT 1.1 /CUMM (1.2-3.4); ABSOLUTE MONOCYTE COUNT 1.1 /CUMM (0.10-0.60); BASOPHIL % 0 % (0.0-2.0); EOSINOPHIL % 0 % (0-5); GRANULOCYTE % 89.9 % (42.2-75.2); HEMATOCRIT 20.6 % (42-52); MEAN CORPUSCULAR HGB 28.8 PG (27.0-31.0); MEAN CORPUSCULAR HGB CONC 32.5 G/DL (33.0-37.0); MEAN CORPUSCULAR VOLUME 88.5 FL (80.0-94.0); PLATELET COUNT 304 /CUMM (130-400); RBC DISTRIBUTION WIDTH 14.1 % (11.5-14.5); RED BLOOD CELL CT 2.32 /CUMM (4.70-6.10); WHITE BLOOD CELL COUNT 21.5 /CUMM (4.8-10.8)
[2016-03-11 09:00] VITALS: BP 110/70
--- NOTE | 2016-03-11 10:25 | PN- CRCU ---
Subjective HPI/Critical Care Issues: Patient seen and examined this morning. His hemoglobin has decreased to 6.7 with black stool and guaiac positive. He also has dizziness. His respiratory status however has improved. There is no nausea no vomiting. There is no hemoptysis or hematemesis. There is no chest pain at this time. Objective Current Medications: Current Medications Sig/Amadeo Start time Last Medication Dose Route Stop Time Status Admin Acetaminophen 1,000 MG Q6P PRN 03/09 1145 DC IV Albuterol Sulfate 3 ML TID 03/10 2200 AC 03/11 INH 0802 Albuterol Sulfate 3 ML TID 03/09 1600 DC 03/10 INH 1348 Aspirin 81 MG DAILY 03/10 1030 DC 03/10 PO 1022 Azithromycin 250 MG DAILY 03/11 1000 AC PO Carvedilol 3.125 MG BID 03/10 2200 AC 03/10 PO 2144 Carvedilol 3.125 MG ONCE ONE 03/10 1030 DC 03/10 PO 03/10 1031 1021 Clopidogrel Bisulfate 75 MG DAILY 03/10 1030 DC 03/10 PO 1022 Escitalopram Oxalate 10 MG DAILY 03/10 1030 AC 03/10 PO 1021 Ferrous Sulfate 325 MG DAILY 03/10 1030 DC 03/10 PO 1021 Furosemide 20 MG ONCE ONE 03/11 0815 DC IV 03/11 0816 Heparin Sodium 5,000 UNIT Q8 03/09 0600 DC 03/11 (Porcine) SC 0522 Insulin Human Regular 0 TIDAC 03/11 1200 CAN SC Insulin Human Regular 0 Q6 03/11 1200 AC SC Insulin Human Regular 0 TIDAC/HS 03/10 2100 DC 03/10 SC 2144 Insulin Human Regular 0 Q6 03/09 0600 DC 03/10 SC 1230 Ipratropium [place] 2.5 ML TID 03/10 2200 AC 03/11 INH 0802 Ipratropium [place] 2.5 ML TID 03/09 1600 DC 03/10 INH 1349 Methylprednisolone 40 MG Q12H 03/10 1800 AC 03/11 IV 0522 Methylprednisolone 40 MG Q12 03/10 1000 DC IV Metoprolol Tartrate 1.25 MG Q6 PRN 03/09 1145 DC IV Oxycodone/ 1 TAB Q6P PRN 03/10 1030 AC Acetaminophen PO Oxycodone/ 2 TAB Q6P PRN 03/10 1030 AC Acetaminophen PO Pantoprazole Sodium 40 MG BID 03/11 1015 AC IV Vital Signs & I&O Last 24 Hrs of Vitals and I&O: Vital Signs Date Time Temp Pulse Resp B/P Pulse O2 O2 Flow FiO2 Ox Delivery Rate 03/11 0804 97 Nasal 2.0L Cannula 03/11 0620 82 97 03/11 0400 96 BIPAP 30% 03/11 0333 69 98 03/11 0044 71 97 03/11 0000 96 BIPAP 30% 03/11 0000 98.4 68 24 108/64 96 BIPAP 30% 03/10 2220 65 98 03/10 2144 70 118/74 03/10 1999 95 Nasal 2.0L Cannula 03/10 1999 94 Nasal 2.0L Cannula 03/10 1655 96 Nasal 2.0L Cannula 03/10 1600 98.7 70 20 110/52 96 Nasal 2.0L Cannula 03/10 1359 96 Nasal 2.0L Cannula Intake & Output 03/11 1600 03/11 0800 03/11 0000 Intake Total 480 340 Output Total 550 450 Balance -70 -110 Intake, Oral 480 340 Output, Urine 550 450 Exam Other Physical Findings: General - Alert, awake and oriented HEENT - normocephalic, atraumatic Cardiovascular - S1, S2 Lungs - mild crackles at the bases and diminished breath sounds overall Abdomen - soft, bowel sounds positive, no tenderness Extremities - without edema or cyanosis Results Last 24 Hrs of Lab Results: Laboratory Tests 03/11/16 0455: Anion Gap 8, Estimated GFR 42 L, Glucose 248 H, Calcium 8.5, Phosphorus 2.5, Magnesium 2.4 H, Total Bilirubin 0.2, AST 10 L, ALT 19 L, Albumin 2.8 L, CBC w Diff MAN DIFF ORDERED, RBC 2.32 L, MCV 88.5, MCH 28.8, RDW 14.1, MPV 9.0, Gran % 89.9 H, Lymphocytes % 5.0 L, Monocytes % 5.1, Eosinophils % 0, Basophils % 0 L, Absolute Granulocytes 19.3 H, Segmented Neutrophils 80 H, Band Neutrophils 5, Absolute Lymphocytes 1.1 L, Lymphocytes 10 L, Monocytes 2, Absolute Monocytes 1.1 H, Absolute Eosinophils 0, Basophils 1, Absolute Basophils 0, Metamyelocytes 2 H, Platelet Estimate ADEQUATE, Normocytic RBCs VERIFIED, Hypochromic-Microcytic 1+, PUBS MCHC 32.5 L, Fld Total RBCs Counted 100 Impression/Plan Impression/Plan Impression/Plan: Impression 76-year-old man with hypercarbic respiratory failure. History of congestive heart disease. Now with acute blood loss anemia, GI source. Hemoglobin 6.7 with symptoms of dizziness. Plan - GI input, if pt needs a scope, intubation would be necessary - NPO, hold a/c - large bore iv, monitor cbc - continue Solu-Medrol 40 mg IV every 12. - Nocturnal and as needed BiPAP 20/6, ensure he has disordered for discharge - Ins and outs and diuresis as needed to keep him that even to negative fluid balance - Aspiration precautions - Off theophylline -Swallow evaluation at the bedside and begin a full liquid diet if able - TRC nebs TTS 40 min
[2016-03-11 12:07] LABS: PT 12.4 SEC (9.4-12.5); PTT 29 SEC (25-37)
--- NOTE | 2016-03-11 13:48 | NUR ---
SPEECH THERAPY: PT CURRENTLY NPO FOR GI BLEED, AWAITING GI CONSULT. PT UNABLE TO BE SEEN FOR DIET TOLERANCE. ST CONTINUE TO FOLLOW ONCE CLEARED BY GI.
[2016-03-11 16:00] VITALS: BP 104/64
--- NOTE | 2016-03-11 16:08 | Cons- Gastroenterology ---
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 Unfortunately, the patient ate solid food this morning 03/11/2016, prohibiting EGD for at least 8 hours after. The risks and benefits of EGD were discussed the patient and his son/POA, Alejo David, at the bedside in the ICU, including the high possibility of intubation. He is DNR/DNI, but they are agreeable to intubation to protect his airway for the EGD, if needed. Informed consent for EGD was obtained from the patient, after careful explanation of the risks & benefits, in the presence of his son/POA, Alejo David. They are aware that it could take some time to extubate the patient, keeping in mind his COPD, JUANITO, etc. If an upper GI source is found, they do not wish to pursue colonoscopy, which may have never been done before, keeping in mind his numerous comorbidities. They may reconsider colonoscopy and/or PillCam, should the EGD be unremarkable. As there is no active hematemesis and the patient ate solid food this morning, tentative EGD with anesthesiology will be scheduled for 03/12/2016 at 8 AM by the bedside in the ICU. This was discussed with Dr. Taylor, and with the GI nurses on-call, Rosalina. SUGGEST: NPO. Maintain in ICU. T&C 2u PRBC. Transfuse to Hgb > 8 with history of ASHD. Increase IV Protonix from 40 mg daily to IV Protonix drip at 8 mg/hour. No NSAIDs. Baby aspirin and Plavix on hold for now, per discussion with cardiology , who will try to get old records from [place]. According to the patient's son, the patient never had cardiac stents, just CABG x 3 in 2010. Supplemental O2 as needed. IV antibiotics, IV steroids, ICU care, etc. as per ICU team. For tentative EGD on 03/12/2016 at 8 AM by the bedside in the ICU. The above findings and recommendations were discussed the medical house staff, Dr. Garcia, Dr. Crouch, the patient, and the patient's son, Alejo David, at the time of consultation. If EGD negative, consideration for colonoscopy and possible PillCam, depending on risk:benefit ratio. Further recommendations to follow, depending on clinical course. Problem List: 1. Anemia 2. Melena 3. Malnutrition 4. Obesity Copies To: JOANA BARRETT,RAIN Swift; BOSSMAN BARRETT,ROB; FELIZ BARRETT,KAUSHIK Barrios; JOSE BARRETT,WADE; KIM BARRETT,Jamison MEDEROS; RENATA BARRETT,PARKER Consult Acknowledgment - Thank you for your consult request.
--- NOTE | 2016-03-11 16:14 | PN- Resident CRCU ---
Subjective HPI/CRCU Issues: Patient is in ICU for: Respiratory status, GI bleed, acute blood loss anemia. After breakfast, patient proceeded to have a large tarry black bowel movement. Stool was confirmed to be guaiac positive. Additionally, his H&H this morning was noted to be at 6.7 and 20.6 down from 9 at admission. Patient endorses dizziness, but denies chest pain, shortness of breath, abdominal pain, diarrhea, or nausea/vomiting. His vitals remained stable. We obtained consent for blood transfusion. Patient was transfused 2 units PRBC. GI consult placed His last blood sugars have been 229, 219, 339. We initially increased his sliding scale insulin to medium dose. However, once he was made nothing by mouth for possible scoping we changed him back to nothing by mouth sliding scale. However we'll continue to monitor his blood sugars 24 Hour Events: See above Objective Vital Signs & I&O Last 8 Hrs of Vitals and I&O: Most recent vitals are recorded at: 97.1, 90, 20, 104/59 pulse ox 97 2 L nasal cannula Exam General Appearance: well developed/nourished, no apparent distress, alert, awake , comfortable Head: atraumatic, normal appearance Ears, Nose, Throat: normal pharynx, normal ENT inspection Neck: supple Respiratory: chest non-tender, no respiratory distress Cardiovascular: regular rate/rhythm Gastrointestinal: normal bowel sounds, soft, non-tender Extremities: normal inspection Current Medications: Current Medications Sig/Amadeo Start time Last Medication Dose Route Stop Time Status Admin Albuterol Sulfate 3 ML TID 03/10 2200 AC 03/11 INH 1406 Albuterol Sulfate 3 ML TID 03/09 1600 DC 03/10 INH 1348 Aspirin 81 MG DAILY 03/10 1030 DC 03/10 PO 1022 Azithromycin 250 MG DAILY 03/11 1000 AC 03/11 PO 1024 Carvedilol 3.125 MG BID 03/10 2200 AC 03/11 PO 1025 Clopidogrel Bisulfate 75 MG DAILY 03/10 1030 DC 03/10 PO 1022 Dextrose/Sodium 1,000 ML Q20H 03/11 1630 AC Chloride IV Escitalopram Oxalate 10 MG DAILY 03/10 1030 AC 03/11 PO 1024 Ferrous Sulfate 325 MG DAILY 03/10 1030 DC 03/10 PO 1021 Furosemide 40 MG ONCE ONE 03/11 1130 DC IV 03/11 1131 Furosemide 20 MG ONCE ONE 03/11 0815 CAN IV 03/11 0816 Heparin Sodium 5,000 UNIT Q8 03/09 0600 DC 03/11 (Porcine) SC 0522 Insulin Human Regular 0 TIDAC 03/11 1200 CAN SC Insulin Human Regular 0 Q6 03/11 1200 AC SC Insulin Human Regular 0 TIDAC/HS 03/10 2100 DC 03/10 SC 2144 Insulin Human Regular 0 Q6 03/09 0600 DC 03/10 SC 1230 Ipratropium [place] 2.5 ML TID 03/10 2200 AC 03/11 INH 1406 Ipratropium [place] 2.5 ML TID 03/09 1600 DC 03/10 INH 1349 Methylprednisolone 40 MG Q12H 03/10 1800 AC 03/11 IV 0522 Oxycodone/ 1 TAB Q6P PRN 03/10 1030 AC Acetaminophen PO Oxycodone/ 2 TAB Q6P PRN 03/10 1030 AC Acetaminophen PO Pantoprazole Sodium 40 MG Q5H 03/11 1615 AC Sodium Chloride 100 ML IV Pantoprazole Sodium 40 MG BID 03/11 1015 DC 03/11 IV 1115 Impression/Plan Impression/Problem List Impression: This is 76-year-old male with past medical history significant for COPD on 2 L home O2, JUANITO on nocturnal CPAP, hypertension, hyperlipidemia, type 2 diabetes mellitus, CAD with PR status post CABG, CVA, CK D stage III, recently admitted for observation 2/2 lethargy at [facility] and discharged to [facility] at [place]. He now presents to chief complaint of lethargy. Upon ED workup he was found to have acute on chronic hypercarbic and hypoxemic respiratory failure secondary to JUANITO and COPD exacerbation. He was placed on BiPAP, IV azithromycin and steroids. Initially did not improve, was transferred to ICU for further aggressive management and closer monitoring. Of note, patient had troponins of 0.33 in ED, which were then trended down. PLAN Respiratory: Patient has severe hypercarbic and hypoxemic respiratory failure requiring BiPAP 20/6 with FiO2 30. He has significant history of JUANITO on nocturnal CPAP and COPD on 2 L home O2. Patient continues to improve from a respiratory standpoint. He is satting high 90s on 2 L nasal cannula this AM. His BEP shows sodium 141, potassium 5.4, chloride 103, bicarbonate 30, BUN 67, creatinine 1.6. * DC all inhalers * Continue BiPAP with PEEP of 6, 20/6 and 30% O2. He will need one for home. * If worsened check ABG * By mouth azithromycin 250 mg daily * Continue IV Solu-Medrol 40 mg every 12 hours * Stop theophylline * Aspiration precautions ID: Patient is now growing greater than 100,000 units of enterococcus in his urine. Sensitive to ampicillin and Macrobid and vancomycin. Patient does not have any evidence of infection. He has been afebrile in hospital. Elevated white count secondary to steroids. He denies any itching burning or associated frequency and urgency. However he does have a Telles catheter in place. * At this time we will watch off antibiotics * Remove Telles catheter * Monitor patient clinically Cardiovascular: Echo suggested EF of 40. Patient has significant history of type 2 diabetes mellitus, hypertension, and PR status post CABG. Of note, during this admission patient had demand-related troponin, highest reading at 0.33, subsequently trended downward. No EKG changes. This a.m. cholesterol panel showed total cholesterol 113, LDL 51, HDL 40. * Thank you cardiology consult * Resume cardiac medications including aspirin, clopidogrel, beta benigno, spironolactone, ARB. * Continue I's and O's * Patient is on D5 1/2 NS at 50 mL per hour. We will monitor and ensure his fluid balance remains roughly equal * Consider restarting his home diuretics as he is getting 2 units blood transfusion Hematology/GI: This a.m. patient's hemoglobin is 6.7 down from 7.6 yesterday and 9 at admission. He now has heme positive stool. Grossly inspected this a.m. and he has black tarry stools. Likely upper GI bleed. Patient denies any previous history of GI bleed. He states that he has never had a blood transfusion previously. * Consent obtained 2 unit PRBC transfusion this a.m. * 40 mg IV Lasix after transfusion for adequate diuresis as patient has EF of 40. * Discontinue aspirin and Plavix. Of note, patient does have history of CAD with stents in place. There is no other history available. * Nothing by mouth * DC heparin for DVT prophylaxis, start Alps. * PPI * PT INR * Abdominal x-ray * Continue to guaiac all stool Musculoskeletal: Stable from this perspective will continue to monitor Nephro: Patient has CK D stage III with creatinine at 1.6 (at baseline) today. We will avoid nephrotoxic medications and continue to monitor Endocrine: Patient has history of diabetes mellitus. A1c measured during this admission at 6.3. T4 within normal limits TSH low. A.m. cortisol 14; Normal limits. Last blood sugar was reported to 29, 290, crit 39, 299. * Outpatient follow-up on TSH * Currently nothing by mouth * Currently on nothing by mouth insulin regimen * FS Problem List: 1. Pneumonia 2. COPD exacerbation 3. CKD (chronic kidney disease) stage 3, GFR 30-59 ml/min Pain Ratin Pain Location: none Tomorrow's Labs & Rationales: ICU bundle Plan DVT/Prophylaxis: pharmacological
--- NOTE | 2016-03-11 18:10 | PN- Cardiology ---
Subjective Subjective: Feels improved s/p 2 units PRBCs. Awaiting follow up CBC. EGD planned for tomorrow a.m. Objective Vital Signs and I&Os Vital Signs Date Time Temp Pulse Resp B/P Pulse O2 O2 Flow FiO2 Ox Delivery Rate 03/11 1025 97.1 90 20 104/59 03/11 0804 97 Nasal 2.0L Cannula 03/11 0620 82 97 03/11 0400 96 BIPAP 30% 03/11 0333 69 98 03/11 0044 71 97 03/11 0000 96 BIPAP 30% 03/11 0000 98.4 68 24 108/64 96 BIPAP 30% 03/10 2220 65 98 03/10 2144 70 118/74 03/10 1999 95 Nasal 2.0L Cannula 03/10 1999 94 Nasal 2.0L Cannula Intake & Output 03/11 1600 03/11 0800 03/11 0000 03/10 1600 03/10 0800 03/10 0000 Intake Total 480 340 864 387 344 Output Total 550 450 300 300 400 Balance -70 -110 564 87 -56 Intake, IV 424 387 344 Intake, Oral 480 340 440 Number 0 Bowel Movements Output, Urine 550 450 300 300 400 Patient 239 lb Weight Physical Exam: HEENT: Normocephalic, atraumatic, EOMI, moist mucous membranes. Neck: No JVD, no bruits. Lungs: Decreased breath sounds bilaterally with a few crackles at the bases. Heart: S1, S2 with grade 2/6 systolic murmur. Abdomen: Soft, nontender, positive bowel sounds. Extremities: No edema. Current Medications: Current Medications Sig/Amadeo Start time Last Medication Dose Route Stop Time Status Admin Albuterol Sulfate 3 ML TID 03/100 AC 03/11 INH 1406 Aspirin 81 MG DAILY 03/10 1030 DC 03/10 PO 1022 Azithromycin 250 MG DAILY 03/11 1000 AC 03/11 PO 1024 Carvedilol 3.125 MG BID 03/10 2200 AC 03/11 PO 1025 Clopidogrel Bisulfate 75 MG DAILY 03/10 1030 DC 03/10 PO 1022 Dextrose/Sodium 1,000 ML Q20H 03/11 1630 AC Chloride IV Escitalopram Oxalate 10 MG DAILY 03/10 1030 AC 03/11 PO 1024 Ferrous Sulfate 325 MG DAILY 03/10 1030 DC 03/10 PO 1021 Furosemide 40 MG ONCE ONE 03/11 1130 DC 03/11 IV 03/11 1131 1718 Furosemide 20 MG ONCE ONE 03/11 0815 CAN IV 03/11 0816 Heparin Sodium 5,000 UNIT Q8 03/09 0600 DC 03/11 (Porcine) SC 0522 Insulin Human Regular 0 TIDAC 03/11 1200 CAN SC Insulin Human Regular 0 Q6 03/11 1200 AC 03/11 SC 1230 Insulin Human Regular 0 TIDAC/HS 03/10 2100 DC 03/10 SC 2144 Ipratropium [place] 2.5 ML TID 03/10 2200 AC 03/11 INH 1406 Methylprednisolone 40 MG Q12H 03/10 1800 AC 03/11 IV 0522 Oxycodone/ 1 TAB Q6P PRN 03/10 1030 AC Acetaminophen PO Oxycodone/ 2 TAB Q6P PRN 03/10 1030 AC Acetaminophen PO Pantoprazole Sodium 40 MG Q5H 03/11 1615 AC 03/11 Sodium Chloride 100 ML IV 1718 Pantoprazole Sodium 40 MG BID 03/11 1015 DC 03/11 IV 1115 Results Last 48 Hrs of Labs/Mics: Laboratory Tests 03/11/16 1300: CBC w Diff Cancelled, WBC Cancelled, RBC Cancelled, Hgb Cancelled, Hct Cancelled , MCV Cancelled, MCH Cancelled, RDW Cancelled, Plt Count Cancelled, MPV Cancelled, PUBS MCHC Cancelled 03/11/16 1043: PT 12.4, INR 1.18 H, APTT 29 03/11/16 0455: Anion Gap 8, Estimated GFR 42 L, Glucose 248 H, Calcium 8.5, Phosphorus 2.5, Magnesium 2.4 H, Total Bilirubin 0.2, AST 10 L, ALT 19 L, Albumin 2.8 L, CBC w Diff MAN DIFF ORDERED, RBC 2.32 L, MCV 88.5, MCH 28.8, RDW 14.1, MPV 9.0, Gran % 89.9 H, Lymphocytes % 5.0 L, Monocytes % 5.1, Eosinophils % 0, Basophils % 0 L, Absolute Granulocytes 19.3 H, Segmented Neutrophils 80 H, Band Neutrophils 5, Absolute Lymphocytes 1.1 L, Lymphocytes 10 L, Monocytes 2, Absolute Monocytes 1.1 H, Absolute Eosinophils 0, Basophils 1, Absolute Basophils 0, Metamyelocytes 2 H, Platelet Estimate ADEQUATE, Normocytic RBCs VERIFIED, Hypochromic-Microcytic 1+, PUBS MCHC 32.5 L, Fld Total RBCs Counted 100 03/10/16 0425: Anion Gap 7, Estimated GFR 46 L, Glucose 248 H, Calcium 8.9, Phosphorus 2.9, Magnesium 2.3, Total Bilirubin 0.3, AST 11 L, ALT 22, Albumin 3.1 L, CBC w Diff NO MAN DIFF REQ, RBC 2.61 L, MCV 88.4, MCH 29.0, RDW 13.8, MPV 8.7, Gran % 90.0 H, Lymphocytes % 6.2 L, Monocytes % 3.8, Eosinophils % 0, Basophils % 0 L, Absolute Granulocytes 15.6 H, Absolute Lymphocytes 1.1 L, Absolute Monocytes 0.7 H, Absolute Eosinophils 0, Absolute Basophils 0, PUBS MCHC 32.8 L Assessment/Plan Assessment/Plan Mr. David is an elderly morbidly obese male with a history of former heavy tobacco use, COPD on home oxygen with multiple previous exacerbations, obesity hyperventilation syndrome, obstructive sleep apnea on CPAP, previous stroke without residual deficits, chronic kidney disease, chronic anemia, hypertension, dyslipidemia, diabetes mellitus, and coronary artery disease S/P previous VA's by ECG/left ventricular systolic dysfunction with previous heart failure s/p CABG 2010 at [facility] who returned with lethargy and shortness of breath and who is again found to be having an acute exacerbation of his COPD with a modest troponin elevation. There is no suggestion in the record that he had any recent complaints of chest discomfort, his electrocardiograms have not shown any acute changes, and his troponins are only modestly elevated suggesting that the troponin I elevation is on the basis of demand ischemia (acute illness, left ventricular hypertrophy, etc.), acute respiratory failure, chronic kidney disease, etc. Will discuss with patient's son what, if any cardiovascular evaluation has taken place since his last admission, as it was recommended that cardiac catheterization be considered after his last hospitalization here.. Clinically much improved today, with less ventricular ectopy following the transfusion of 2 units packed red cells. * Continue ICU admission, follow-up CBC and continue to transfuse to keep hemoglobin at or above 8 g/dl given his known coronary artery disease. * Total respiratory care, BiPAP, antimicrobial therapy, steroids, etc. * Note increased WBC count and enterococcus in urine from 03/09/2016 urine culture. * Echocardiogram revealed improved overall left ventricular function. * Follow-up H/H. Awaiting EGD in a.m. for GI bleeding. Given known history of coronary artery disease would maintain hemoglobin at or above 8 g/dl. * Continue to check all stools for occult blood. * Continue on beta benigno * Continue to hold diuretic, angiotensin receptor benigno, mineralocorticoid ( aldosterone) receptor antagonist for the short-term. * Consider nephrology consultation, as BUN/creatinine worsening. * Deep venous thrombosis prophylaxis. Continue telemetry? Yes
[2016-03-11 23:00] LABS: ABSOLUTE BASOPHIL COUNT 0 /CUMM (0.0-0.2); ABSOLUTE EOSINOPHIL COUNT 0 /CUMM (0.0-0.7); ABSOLUTE GRANULOCYTE CT 23.2 /CUMM (1.4-6.5); ABSOLUTE LYMPH COUNT 1.4 /CUMM (1.2-3.4); BASOPHIL % 0 % (0.0-2.0); EOSINOPHIL % 0 % (0-5); MEAN CORPUSCULAR HGB 29.6 PG (27.0-31.0); MEAN CORPUSCULAR HGB CONC 33.5 G/DL (33.0-37.0); MEAN CORPUSCULAR VOLUME 88.3 FL (80.0-94.0); MEAN PLATELET VOLUME 8.8 FL (7.4-10.4); PLATELET COUNT 266 /CUMM (130-400); WHITE BLOOD CELL COUNT 27.6 /CUMM (4.8-10.8)
[2016-03-11 23:04] LABS: HEMATOCRIT 27.3 % (42-52)
[2016-03-12] VITALS: BP 134/72
[2016-03-12 05:44] LABS: ABSOLUTE BASOPHIL COUNT 0 /CUMM (0.0-0.2); ABSOLUTE EOSINOPHIL COUNT 0 /CUMM (0.0-0.7); ABSOLUTE GRANULOCYTE CT 25.1 /CUMM (1.4-6.5); ABSOLUTE LYMPH COUNT 1.5 /CUMM (1.2-3.4); ABSOLUTE MONOCYTE COUNT 1.9 /CUMM (0.10-0.60); BASOPHIL % 0 % (0.0-2.0); EOSINOPHIL % 0.1 % (0-5); HEMATOCRIT 25.3 % (42-52); MEAN CORPUSCULAR HGB 29.9 PG (27.0-31.0); MEAN CORPUSCULAR HGB CONC 33.8 G/DL (33.0-37.0); MEAN CORPUSCULAR VOLUME 88.6 FL (80.0-94.0); PLATELET COUNT 253 /CUMM (130-400); RBC DISTRIBUTION WIDTH 13.9 % (11.5-14.5); RED BLOOD CELL CT 2.85 /CUMM (4.70-6.10); WHITE BLOOD CELL COUNT 28.5 /CUMM (4.8-10.8)
[2016-03-12 05:50] LABS: PT 11.8 SEC (9.4-12.5); PTT 25 SEC (25-37)
--- NOTE | 2016-03-12 07:43 | PN- Gastroenterology ---
See Addendum Assessment/Plan Assessment/Recommendations: 76-year-old right handed male, fair historian, with numerous comorbidities, including morbid obesity, AODM, hypertension, hyperlipidemia, ASHD post [place], CABG numerous admissions for COPD- on home O2- 2L nc & intermittently requiring BiPAP , hypercarbic respiratory failure, history of pneumonia, remote TIA without residual, & CKD3. The patient denies having had any previous EGD & does not think he ever had a colonoscopy. The patient was recently admitted to [facility] respiratory failure and sent to [facility] for rehabilitation. He was then admitted to [facility] 03/09/2016 for lethargy, and found to be hypoxic with recurrent hypercarbic respiratory failure, requiring BiPAP. He was put on antibiotics for possible PNA & is on steroids for COPD. He has chronic anemia but denies any previous history of transfusion, although he is not certain if he received any blood during his CABG. The patient has chronic dark stool on iron, however his admission Hgb 8.5 dropped to 6.7 on 03/11/2016, black OB-positive stool. The patient was on outpatient Aleve, as well as Prednisone. His NSAIDs were not resumed on admission the ICU team stop the aspirin and Plavix 2016, after noting the increasing anemia, rising BUN, and melena. The patient has been seen by ICU and cardiology. He had a mild troponin bump this admission , which was actually higher in 06/2015, felt to be secondary to demand ischemia. The patient ate solid food for breakfast this morning at 9:15 a.m., prohibiting EGD for at least 8 hours. He has been NPO since. The patient currently has no GI complaints. His son/POA, Alejo David, was in the ICU room # 110, to assist with the history. *Although the patient is DNI/DNR , it is okay to intubate him temporarily for a procedure, according to his son, Alejo. The patient denies any GERD, odynophagia, dysphagia, early satiety, hematemesis, abdominal pain, previous abdominal surgery, diarrhea, constipation, obstipation, tenesmus, or rectal bleeding. There is no chest pain. He has baseline shortness of breath, without change. He is currently off BiPAP. He was put on Protonix 40 mg IV daily. There is no family history of any GI emergency, GI disease, or inherited liver disease. The patient is an ex-75-pack -year cigarette smoker, stopping 2010. He has a remote history of moderate EtOH , mostly on the weekends, stopping 2010. He currently looks relatively comfortable, despite his numerous issues. 03/08/2016: Admission labs- WBC 13.5 (73% gran/10 gran Ab- on steroids), H/H a 0.5/26, normal MCV, PLT 319, BUN/Cr 40/1.6, GFR 42, normal LFTs except albumin 3.3, globulin 2.6, peak troponin 0.33, BNP 6190. 03/09/2016: TSH 1.01, HgbA1C 6.3 03/09/2016: ABG 30% BiPAP- 7.33/56/78/94%, HCO3 29, CO HB 0.3 03/11/2016: PT 12.4, INR 1.18, PTT 29; WBC 21.5 (80S/5B/10L/2M/1 Baso/2 [place]), H /H6.7/20.6, PLT 304. 03/08/2016: EKG- NSR @ 69, normal axis, IVCD, PRWP, IWMI, paired PVC. 03/08/2016: PORTABLE CHEST XRAY- Enlarged cardiac silhouette which limits assessment of the left base. CABG. No definite acute findings. 03/10/2016: PORTABLE CHEST XRAY- CABG. Stable enlarged cardiac silhouette. Limited evaluation of the left base as noted above. However no change. *Clinically, the patient appears to be having an upper GI bleed, with elevated BUN:Cr ratio, melena, ex-ASA 81 mg daily, Plavix & Aleve. Additionally, he has COPD and is on Prednisone, both of which are risk factors for PUD. Other possibilities include gastritis, GERD, angiodysplasia, NSAID gastropathy, Dieulafoy lesion, doubt neoplasm. History does not seem to be consistent with cirrhosis to suggest varices. A primary small bowel or colonic source seems less likely clinically, but certainly not impossible. Unfortunately, the patient ate solid food this morning 03/11/2016, prohibiting EGD for at least 8 hours after. The risks and benefits of EGD were discussed the patient and his son/POA, Alejo David, at the bedside in the ICU, including the high possibility of intubation. He is DNR/DNI, but they are agreeable to intubation to protect his airway for the EGD, if needed. Informed consent for EGD was obtained from the patient, after careful explanation of the risks & benefits, in the presence of his son/POA, Alejo David. They are aware that it could take some time to extubate the patient, keeping in mind his COPD, JUANITO, etc. If an upper GI source is found, they do not wish to pursue colonoscopy, which may have never been done before, keeping in mind his numerous comorbidities. They may reconsider colonoscopy and/or PillCam, should the EGD be unremarkable. As there is no active hematemesis and the patient ate solid food this morning, tentative EGD with anesthesiology will be scheduled for 03/12/2016 at 8 AM by the bedside in the ICU. This was discussed with Dr. Taylor, and with the GI nurses on-call, Rosalina. *As of 03/12/16, the patient is asymptomatic, resting on BiPAP. Earlier this morning, he had an asymptomatic run of either 6 beat or 9 beat V tach (looked unifocal to me, with an intermittent APC). Anesthesia was here to evaluate the patient, but we are deferring EGD that was scheduled for 8 AM on 03/12/16, until he is seen again by cardiology this morning. The patient did not drop his blood pressure. He has received 2 units PRBC on 03/11/2016, with an appropriate rise in his Hgb, which has again started to slowly drift down. His BUN has climbed. There is no overt hematemesis or BRBPR. He previously had melena. He denies any chest pain, nausea, vomiting, or abdominal pain. His baseline SOB is without change. His leukocytosis has increased (on steroids), although he is afebrile. He remains on Azithromycin to cover his lungs, as per the ICU team, although he also has an Enterococcal UTI. He remains on an IV Protonix drip, and is NPO, getting IVF: D5 1/2 NS @ 50 cc/hr. Aspirin & Plavix remain on hold for now, as per previous discussion with cardiology. SUGGEST: NPO. Maintain in ICU. T&C 2u PRBC. Check CBC Q8h for now. Transfuse to Hgb > 8 with history of ASHD. Continue IV Protonix drip at 8 mg/hour. No NSAIDs. Baby aspirin and Plavix on hold for now, per discussion with cardiology, who will try to get old records from [place]. According to the patient's son, the patient never had cardiac stents, just CABG x 3 in 2010. Supplemental O2/BiPAP as needed. IV antibiotics, IV steroids, ICU care, etc. as per ICU team (consider repeating CXR and/or broadening antibiotic coverage with Enterococcal UTI, regarding leukocytosis, which is in part from steroids). For tentative EGD later on 03/12/2016, by the bedside in the ICU, after cardiac clearance. The above findings and recommendations were discussed the medical house staff, and previously with Dr. Valenzuela & Dr. Crouch (Drs. Fernandez & Ameena now covering), the patient, and the patient's son/POA, Alejo David, at the time of consultation. I placed a call with Dr. Lindquist. I also updated the patient's son, Alejo, on 03/12/2016, regarding the V tach and delay in EGD. He is aware of the critical nature of his father's illness. I will try to coordinate the above again with anesthesiology and the GI nurses on-call (Sarina & Saba), who have already came in for the anticipated EGD. If EGD negative, consideration for colonoscopy and possible PillCam, depending on risk:benefit ratio. Further recommendations to follow, depending on clinical course. 1/2 hour of ICU care was spent on the patient. Problem List: 1. Anemia 2. Melena 3. Malnutrition 4. Obesity Subjective Subjective: As of 03/12/16, the patient is asymptomatic, resting on BiPAP. Earlier this morning, he had an asymptomatic run of either 6 beat or 9 beat V tach (looked unifocal to me, with an intermittent APC). Anesthesia was here to evaluate the patient, but we are deferring EGD that was scheduled for 8 AM on 03/12/16, until he is seen again by cardiology this morning. The patient did not drop his blood pressure. He has received 2 units PRBC on 03/11/2016, with an appropriate rise in his Hgb, which has again started to slowly drift down. His BUN has climbed. There is no overt hematemesis or BRBPR. He previously had melena. He denies any chest pain, nausea, vomiting, or abdominal pain. His baseline SOB is without change. His leukocytosis has increased (on steroids), although he is afebrile. He remains on Azithromycin to cover his lungs, as per the ICU team, although he also has an Enterococcal UTI. He remains on an IV Protonix drip, and is NPO, getting IVF: D5 / NS @ 50 cc/hr. Aspirin & Plavix remain on hold for now, as per previous discussion with cardiology. Review of Systems: Full 14 point review of systems otherwise noncontributory, and as above. Review of Systems Constitutional: Reports: malaise, weakness. Denies: chills, diaphoresis, fever, unexplained weight loss. EENTM: Denies: blurred vision, double vision, visual changes, eye pain, eye drainage, eye tearing, icterus, ear discharge, ear pain, ear redness, hearing changes, nasal congestion, epistaxis, nasal pain, throat pain, throat swelling, mouth pain, tooth pain. Cardiovascular: Denies: chest pain, edema, orthopena, palpitations, peripheral edema, syncope. Respiratory: Reports: short of breath. Denies: cough, hemoptysis, orthopnea, sputum production, stridor, wheezing. GI: Reports: melena. Denies: abdominal pain, bloating, constipation, diarrhea, distention, bowel incontinence, nausea, bloody stool, changes in stool, vomiting, steatorrhea. Genitourinary: Denies: discharge, dysuria, frequency, hematuria, hesitation, nocturia, pain, urgency. Musculoskeletal: Reports: joint pain (DJD). Denies: back pain, gout, joint swelling, muscle pain, muscle stiffness, neck pain. Skin: Denies: cysts, change in skin color, change in hair/nails, dryness, erythema, jaundice, lesions, lymphangitis, lumps, moles, rash. Neurological/Psychological: Reports: weakness. Denies: anxiety, ataxia, cognitive dysfunction, confusion, depressed, dementia, emotional problems, headache, numbness, paresthesia, pre-existing deficit, petit mal seizures, tingling, tremors, tonic-clonic seizures, unable to move lower ext , unable to move upper ext. Hematologic/Endocrine: Denies: bruising, bleeding, polyuria, polydipsia. Immunologic/Allergic: Denies: splenectomy, HIV/AIDS, lymphadenopathy. All Other Systems: Reviewed and Negative Objective Vital Signs and I&Os Vital Signs Date Time Temp Pulse Resp B/P Pulse O2 O2 Flow FiO2 Ox Delivery Rate 03/12 0611 84 96 03/12 0429 95 BIPAP 30% 03/12 0241 75 96 03/12 0034 74 97 03/12 0000 97 BIPAP 30% 03/12 0000 97.0 78 22 134/72 97 BIPAP 30% 03/11 2246 84 133/70 03/11 2214 83 95 03/11 2030 97 Nasal 2.0L Cannula 03/11 2015 95 Nasal 2.0L Cannula 03/11 1600 100 Nasal 2.0L Cannula 03/11 1600 97.4 88 26 104/64 100 Nasal 2.0L Cannula 03/11 1200 96 Nasal 2.0L Cannula 03/11 1025 97.1 90 20 104/59 03/11 0900 97.1 94 24 110/70 98 Nasal 2.0L Cannula Intake & Output 03/12 1600 03/12 0400 03/11 1600 03/11 0400 03/10 1600 03/10 0400 Intake Total 532 1692 1732 879 2155 344 Output Total 675 1800 1100 450 600 400 Balance -143 -108 20 -110 651 -56 Intake, Blood 300 350 Product Intake, IV 532 152 50 811 344 Intake, Oral 0 1240 720 340 440 Number 0 1 0 Bowel Movements Output, Urine 675 1800 1100 450 600 400 Patient 239 lb Weight Physical Exam: Well-developed, morbidly obese male, in mild distress, using accessory muscles to breath, currently on BiPAP. Sclera anicteric. Conjunctiva pale. Oropharynx clear. Poor dentition. No oral thrush. No aphthous ulcers. There is no adenopathy, thyromegaly, or JVD. No definite HJR. No peripheral stigmata of inflammatory bowel disease or chronic liver disease on exam. No spiders on the anterior chest wall. Bilateral gynecomastia without mass, secondary to obesity. No CVA tenderness. Lungs: clear to A&P, with decreased breath sounds at the bases bilaterally. Prolonged expiratory phase. No wheezing, rales, or rhonchi. Heart exam: regular rate rhythm, S1 and S2, without any significant murmur. CABG scar. Abdominal exam: normal bowel sounds, soft belly, morbidly obese, nontender, without guarding or rebound. No mass or organomegaly, within the limits of the body habitus. Negative Palacios sign. No fluid shift. No pulsatile mass. No epigastric bruits. Repeat digital rectal exam: deferred ( melena, OB+ API, earlier on 03/11/2016). Extremities: without cyanosis or clubbing. Trace pedal edema B/L. DJD. B/L LE ALPS. No palpable cords. Distal pulses 1+ bilaterally. DTRs 1+ bilaterally. Alert and oriented x 3. Right- handed. CN II-XII intact. 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 Current Medications: Current Medications Sig/Amadeo Start time Last Medication Dose Route Stop Time Status Admin Albuterol Sulfate 3 ML TID 03/10 2200 AC 03/11 INH 2015 Aspirin 81 MG DAILY 03/10 1030 DC 03/10 PO 1022 Azithromycin 250 MG DAILY 03/11 1000 AC 03/11 PO 1024 Carvedilol 3.125 MG BID 03/10 2200 AC 03/11 PO 2246 Clopidogrel Bisulfate 75 MG DAILY 03/10 1030 DC 03/10 PO 1022 Dextrose/Sodium 1,000 ML Q20H 03/11 1630 AC 03/11 Chloride IV 2042 Escitalopram Oxalate 10 MG DAILY 03/10 1030 AC 03/11 PO 1024 Ferrous Sulfate 325 MG DAILY 03/10 1030 DC 03/10 PO 1021 Furosemide 40 MG ONCE ONE 03/11 1130 DC 03/11 IV 03/11 1131 1718 Furosemide 20 MG ONCE ONE 03/11 0815 CAN IV 03/11 0816 Heparin Sodium 5,000 UNIT Q8 03/09 0600 DC 03/11 (Porcine) SC 0522 Insulin Human Regular 0 TIDAC 03/11 1200 CAN SC Insulin Human Regular 0 Q6 03/11 1200 AC 03/12 SC 0536 Insulin Human Regular 0 TIDAC/HS 03/10 2100 DC 03/10 SC 2144 Ipratropium [place] 2.5 ML TID 03/10 2200 AC 03/11 INH 2015 Methylprednisolone 40 MG Q12H 03/10 1800 AC 03/12 IV 0701 Oxycodone/ 1 TAB Q6P PRN 03/10 1030 AC Acetaminophen PO Oxycodone/ 2 TAB Q6P PRN 03/10 1030 AC Acetaminophen PO Pantoprazole Sodium 40 MG Q5H 03/11 1615 AC 03/12 Sodium Chloride 100 ML IV 0700 Pantoprazole Sodium 40 MG BID 03/11 1015 DC 03/11 IV 1115 Results Pertinent Lab Results: Laboratory Tests 03/12 03/11 0505 2215 Chemistry Sodium (137 - 145 mmol/L) 136 L Potassium (3.5 - 5.1 mmol/L) 5.0 Chloride (98 - 107 mmol/L) 99 Carbon Dioxide (22 - 30 mmol/L) 28 Anion Gap (5 - 16) 9 BUN (9 - 20 mg/dL) 86 H Creatinine (0.7 - 1.2 mg/dL) 1.9 H Estimated GFR (>60 ml/min) 35 L Glucose (65 - 99 mg/dL) 309 H Calcium (8.4 - 10.2 mg/dL) 8.3 L Phosphorus (2.5 - 4.5 mg/dL) 3.4 Magnesium (1.6 - 2.3 mg/dL) 2.3 Total Bilirubin (0.2 - 1.3 mg/dL) 0.4 AST (17 - 59 U/L) 24 ALT (21 - 72 U/L) 43 Albumin (3.5 - 5.0 g/dL) 2.9 L Coagulation PT (9.4 - 12.5 SEC) 11.8 INR (0.90 - 1.17) 1.13 APTT (25 - 37 SEC) 25 Hematology CBC w Diff MAN DIFF ORDERED NO MAN DIFF REQ WBC (4.8 - 10.8 /CUMM) 28.5 H 27.6 H RBC (4.70 - 6.10 /CUMM) 2.85 L 3.10 L Hgb (14.0 - 18.0 G/DL) 8.5 L 9.2 L Hct (42 - 52 %) 25.3 L 27.3 L MCV (80.0 - 94.0 FL) 88.6 88.3 MCH (27.0 - 31.0 PG) 29.9 29.6 RDW (11.5 - 14.5 %) 13.9 14.0 Plt Count (130 - 400 /CUMM) 253 266 MPV (7.4 - 10.4 FL) 9.0 8.8 Gran % (42.2 - 75.2 %) 88.0 H 84.0 H Lymphocytes % (20.5 - 51.1 %) 5.3 L 5.1 L Monocytes % (1.7 - 9.3 %) 6.6 10.9 H Eosinophils % (0 - 5 %) 0.1 0 Basophils % (0.0 - 2.0 %) 0 L 0 L Absolute Granulocytes (1.4 - 6.5 /CUMM) 25.1 H 23.2 H Segmented Neutrophils (42.2 - 75.2 %) 93 H Band Neutrophils (0.0 - 5.0 %) 1 Absolute Lymphocytes (1.2 - 3.4 /CUMM) 1.5 1.4 Monocytes (1.7 - 9.3 %) 6 Absolute Monocytes (0.10 - 0.60 /CUMM) 1.9 H 3.0 H Absolute Eosinophils (0.0 - 0.7 /CUMM) 0 0 Absolute Basophils (0.0 - 0.2 /CUMM) 0 0 Platelet Estimate (ADEQUATE) ADEQUATE Polychromasia 1+ Poikilocytosis 1+ Basophilic Stippling 1+ Ovalocytes 1+ Elliptocytes FEW PUBS MCHC (33.0 - 37.0 G/DL) 33.8 33.5 Other Body Source Fld Total RBCs Counted (%) 100 03/11 03/11 03/11 1300 1043 0455 Chemistry Sodium (137 - 145 mmol/L) 141 Potassium (3.5 - 5.1 mmol/L) 5.4 H Chloride (98 - 107 mmol/L) 103 Carbon Dioxide (22 - 30 mmol/L) 30 Anion Gap (5 - 16) 8 BUN (9 - 20 mg/dL) 67 H Creatinine (0.7 - 1.2 mg/dL) 1.6 H Estimated GFR (>60 ml/min) 42 L Glucose (65 - 99 mg/dL) 248 H Calcium (8.4 - 10.2 mg/dL) 8.5 Phosphorus (2.5 - 4.5 mg/dL) 2.5 Magnesium (1.6 - 2.3 mg/dL) 2.4 H Total Bilirubin (0.2 - 1.3 mg/dL) 0.2 AST (17 - 59 U/L) 10 L ALT (21 - 72 U/L) 19 L Albumin (3.5 - 5.0 g/dL) 2.8 L Coagulation PT (9.4 - 12.5 SEC) 12.4 INR (0.90 - 1.17) 1.18 H APTT (25 - 37 SEC) 29 Hematology CBC w Diff Cancelled MAN DIFF ORDERED WBC (4.8 - 10.8 /CUMM) Cancelled 21.5 H RBC (4.70 - 6.10 /CUMM) Cancelled 2.32 L Hgb (14.0 - 18.0 G/DL) Cancelled 6.7 *L Hct (42 - 52 %) Cancelled 20.6 L MCV (80.0 - 94.0 FL) Cancelled 88.5 MCH (27.0 - 31.0 PG) Cancelled 28.8 RDW (11.5 - 14.5 %) Cancelled 14.1 Plt Count (130 - 400 /CUMM) Cancelled 304 MPV (7.4 - 10.4 FL) Cancelled 9.0 Gran % (42.2 - 75.2 %) 89.9 H Lymphocytes % (20.5 - 51.1 %) 5.0 L Monocytes % (1.7 - 9.3 %) 5.1 Eosinophils % (0 - 5 %) 0 Basophils % (0.0 - 2.0 %) 0 L Absolute Granulocytes (1.4 - 6.5 /CUMM) 19.3 H Segmented Neutrophils (42.2 - 75.2 %) 80 H Band Neutrophils (0.0 - 5.0 %) 5 Absolute Lymphocytes (1.2 - 3.4 /CUMM) 1.1 L Lymphocytes (20.5 - 51.1 %) 10 L Monocytes (1.7 - 9.3 %) 2 Absolute Monocytes (0.10 - 0.60 /CUMM) 1.1 H Absolute Eosinophils (0.0 - 0.7 /CUMM) 0 Basophils (0.0 - 2.0 %) 1 Absolute Basophils (0.0 - 0.2 /CUMM) 0 Metamyelocytes (0.0 - 1.0 %) 2 H Platelet Estimate (ADEQUATE) ADEQUATE Normocytic RBCs VERIFIED Hypochromic-Microcytic 1+ PUBS MCHC (33.0 - 37.0 G/DL) Cancelled 32.5 L Other Body Source Fld Total RBCs Counted (%) 100 03/10 03/09 0425 1225 Chemistry Sodium (137 - 145 mmol/L) 141 Potassium (3.5 - 5.1 mmol/L) 4.6 Chloride (98 - 107 mmol/L) 102 Carbon Dioxide (22 - 30 mmol/L) 31 H Anion Gap (5 - 16) 7 BUN (9 - 20 mg/dL) 41 H Creatinine (0.7 - 1.2 mg/dL) 1.5 H Estimated GFR (>60 ml/min) 46 L Glucose (65 - 99 mg/dL) 248 H Calcium (8.4 - 10.2 mg/dL) 8.9 Phosphorus (2.5 - 4.5 mg/dL) 2.9 Magnesium (1.6 - 2.3 mg/dL) 2.3 Total Bilirubin (0.2 - 1.3 mg/dL) 0.3 AST (17 - 59 U/L) 11 L ALT (21 - 72 U/L) 22 Troponin I (<0.11 ng/ml) 0.15 *H Albumin (3.5 - 5.0 g/dL) 3.1 L Hematology CBC w Diff NO MAN DIFF REQ WBC (4.8 - 10.8 /CUMM) 17.3 H RBC (4.70 - 6.10 /CUMM) 2.61 L Hgb (14.0 - 18.0 G/DL) 7.6 L Hct (42 - 52 %) 23.1 L MCV (80.0 - 94.0 FL) 88.4 MCH (27.0 - 31.0 PG) 29.0 RDW (11.5 - 14.5 %) 13.8 Plt Count (130 - 400 /CUMM) 291 MPV (7.4 - 10.4 FL) 8.7 Gran % (42.2 - 75.2 %) 90.0 H Lymphocytes % (20.5 - 51.1 %) 6.2 L Monocytes % (1.7 - 9.3 %) 3.8 Eosinophils % (0 - 5 %) 0 Basophils % (0.0 - 2.0 %) 0 L Absolute Granulocytes (1.4 - 6.5 /CUMM) 15.6 H Absolute Lymphocytes (1.2 - 3.4 /CUMM) 1.1 L Absolute Monocytes (0.10 - 0.60 /CUMM) 0.7 H Absolute Eosinophils (0.0 - 0.7 /CUMM) 0 Absolute Basophils (0.0 - 0.2 /CUMM) 0 PUBS MCHC (33.0 - 37.0 G/DL) 32.8 L 03/09 1220 Blood Gas pH (7.35 - 7.45 PH) 7.33 L pCO2 (35 - 45 TORR) 56 H pO2 (80 - 100 TORR) 78 L HCO3 (21 - 28 MEQ/L) 29 H ABG O2 Sat (Measured) (>96.0 %) 94.0 L Carboxyhemoglobin (1.5 - 5.0 %) 0.3 L O2 Concentration % 30% Temperature (97.0 - 100.0 FARH) 97.2 Respiration Rate (BPM) 24 O2 Delivery Method BIPAP Vent Mode ST Expiratory Pressure (CM H2O P) 6 Inspiratory Pressure (CM H2O P) 20 Miscellaneous Phlebotomy Draw Site RIGHT RADIAL Imaging/Other Studies: 03/08/2016: EKG- NSR @ 69, normal axis, IVCD, PRWP, IWMI, paired PVC. 03/08/2016: PORTABLE CHEST XRAY- Enlarged cardiac silhouette which limits assessment of the left base. CABG. No definite acute findings. 03/10/2016: PORTABLE CHEST XRAY- CABG. Stable enlarged cardiac silhouette. Limited evaluation of the left base as noted above. However no change.
--- NOTE | 2016-03-12 07:52 | NUR ---
PT HAD COUPLET FOLLOWED BY 6 BEAT RUN OF [facility]. GI, DR. RAZA AND ANESTHESIA NOTIFIED. PER ANESTHESIA AND DR. MOTLEY, CARDIOLOGY CONSULT NEEDED. DR. RAZA CALLED AND INFORMED OF REQUEST.
[2016-03-12 08:00] VITALS: BP 124/70
--- NOTE | 2016-03-12 08:37 | PN- Resident CRCU ---
Subjective HPI/CRCU Issues: Patient in ICU for: Hypoxic, hypercarbic respiratory failure. Elevated troponins. GI bleed. 24 Hour Events: This a.m. he had an episode of the tach. As such, his GI scope was deferred pending cardiac clearance. Objective Vital Signs & I&O Last 8 Hrs of Vitals and I&O: Vital Signs Date Time Temp Pulse Resp B/P Pulse O2 O2 Flow FiO2 Ox Delivery Rate 03/12 0830 67 96 03/12 0611 84 96 03/12 0429 95 BIPAP 30% 03/12 0241 75 96 03/12 0034 74 97 03/12 0000 97 BIPAP 30% 03/12 0000 97.0 78 22 134/72 97 BIPAP 30% 03/11 2246 84 133/70 03/11 2214 83 95 03/11 2030 97 Nasal 2.0L Cannula 03/11 2016 95 Nasal 2.0L Cannula 03/11 1600 100 Nasal 2.0L Cannula 03/11 1600 97.4 88 26 104/64 100 Nasal 2.0L Cannula 03/11 1200 96 Nasal 2.0L Cannula 03/11 1025 97.1 90 20 104/59 03/11 0900 97.1 94 24 110/70 98 Nasal 2.0L Cannula Intake & Output 03/12 1600 03/12 0800 03/12 0000 Intake Total 532 1692 Output Total 675 1800 Balance -143 -108 Intake, Blood 300 Product Intake, IV 532 152 Intake, Oral 0 1240 Number 0 Bowel Movements Output, Urine 675 1800 Exam General Appearance: no apparent distress, alert, awake Head: atraumatic, normal appearance Ears, Nose, Throat: normal pharynx Neck: supple Respiratory: normal breath sounds, chest non-tender, no respiratory distress Cardiovascular: regular rate/rhythm Gastrointestinal: soft, non-tender Extremities: normal inspection, normal capillary refill IV Drips IV Drips: IV Protonix D5 S Nutrition Nutrition: NPO Current Medications: Current Medications Sig/Amadeo Start time Last Medication Dose Route Stop Time Status Admin Albuterol Sulfate 3 ML TID 03/10 2200 AC 03/12 INH 0833 Amoxicillin/ 875 MG Q12 03/12 1000 AC Clavulanate Potassium PO Aspirin 81 MG DAILY 03/10 1030 DC 03/10 PO 1022 Azithromycin 250 MG DAILY 03/11 1000 AC 03/11 PO 1024 Carvedilol 3.125 MG BID 03/10 2200 AC 03/11 PO 2246 Clopidogrel Bisulfate 75 MG DAILY 03/10 1030 DC 03/10 PO 1022 Dextrose/Sodium 1,000 ML Q20H 03/11 1630 AC 03/11 Chloride IV 2042 Escitalopram Oxalate 10 MG DAILY 03/10 1030 AC 03/11 PO 1024 Ferrous Sulfate 325 MG DAILY 03/10 1030 DC 03/10 PO 1021 Furosemide 40 MG ONCE ONE 03/11 1130 DC 03/11 IV 03/11 1131 1718 Furosemide 20 MG ONCE ONE 03/11 0815 CAN IV 03/11 0816 Heparin Sodium 5,000 UNIT Q8 03/09 0600 DC 03/11 (Porcine) SC 0522 Insulin Human Regular 0 TIDAC 03/11 1200 CAN SC Insulin Human Regular 0 Q6 03/11 1200 AC 03/12 SC 0536 Insulin Human Regular 0 TIDAC/HS 03/10 2100 DC 03/10 SC 2144 Ipratropium [place] 2.5 ML TID 03/10 2200 AC 03/12 INH 0833 Methylprednisolone 40 MG Q12H 03/10 1800 AC 03/12 IV 0701 Oxycodone/ 1 TAB Q6P PRN 03/10 1030 AC Acetaminophen PO Oxycodone/ 2 TAB Q6P PRN 03/10 1030 AC Acetaminophen PO Pantoprazole Sodium 40 MG Q5H 03/11 1615 AC 03/12 Sodium Chloride 100 ML IV 0700 Pantoprazole Sodium 40 MG BID 03/11 1015 DC 03/11 IV 1115 Impression/Plan Impression/Problem List Impression: This is 76-year-old male with past medical history significant for COPD on 2 L home O2, JUANITO on nocturnal CPAP, hypertension, hyperlipidemia, type 2 diabetes mellitus, CAD with NE status post CABG, CVA, CK D stage III, recently admitted for observation 2/ lethargy at [facility] and discharged to [facility] at [place]. He now presents to chief complaint of lethargy. Upon ED workup he was found to have acute on chronic hypercarbic and hypoxemic respiratory failure secondary to JUANITO and COPD exacerbation. He was placed on BiPAP, IV azithromycin and steroids. Initially did not improve, was transferred to ICU for further aggressive management and closer monitoring. Of note, patient had troponins of 0.33 in ED, which were then trended down. PLAN Respiratory: Patient has severe hypercarbic and hypoxemic respiratory failure requiring BiPAP 20/6 with FiO2 30. He has significant history of JUANITO on nocturnal CPAP and COPD on 2 L home O2. Patient continues to improve from a respiratory standpoint. He is satting high 90s on 2 L nasal cannula this AM. However, plan is for him to be intubated for EGD. Unsure when he will be extubated. Plan for ABG after procedure. * DC all inhalers * Continue BiPAP with PEEP of 6, 20/6 and 30% O2. He will need one for home. * If worsened check ABG * By mouth azithromycin 250 mg daily * Continue IV Solu-Medrol 40 mg every 12 hours * Stop theophylline * Aspiration precautions ID: Patient is now growing greater than 100,000 units of enterococcus in his urine. Sensitive to ampicillin and Macrobid and vancomycin. He has been afebrile in hospital. Elevated white count secondary to steroids. He denies any itching burning or associated frequency and urgency. * Start Augmentin 875 by mouth twice a day * Remove Telles catheter * Monitor patient clinically Cardiovascular: Echo suggested EF of 40. Patient has significant history of type 2 diabetes mellitus, hypertension, and NE status post CABG. Of note, during this admission patient had demand-related troponin, highest reading at 0.33, subsequently trended downward. No EKG changes. This a.m. cholesterol panel showed total cholesterol 113, LDL 51, HDL 40. Goal is to keep H&H at 8 and 24. * Thank you cardiology consult * Hold cardiac medications including aspirin, clopidogrel, beta benigno as of . However we are unable to obtain records to confirm if he has any stents put in. Per family he does not have any. However we need to confirm with Dr. Negrete at [facility]. * Continue I's and O's * Patient is on D5 1/2 NS at 50 mL per hour. We will monitor and ensure his fluid balance remains roughly equal. * Consider restarting his home diuretics Hematology/GI: Patient had an episode of melena yesterday in the a.m. was guaiac -positive. Likely upper GI bleed. Patient denies any previous history of GI bleed. Scheduled for scope in a.m. this morning. However is compatible deferred as he had a 6 beat V. tach. * Discontinue aspirin and Plavix. Of note, patient does have history of CAD with stents in place. There is no other history available. * Nothing by mouth * DC heparin for DVT prophylaxis, start Alps. * PPI drip cont for another 4 hrs then change to 40 IVQ12 * PT INR * Abdominal x-ray * Continue to guaiac all stool * H/H at 7.7 so will tx 1u pRBC. Recheck at 11 PM Musculoskeletal: Stable from this perspective will continue to monitor Nephro: Patient has CK D stage III with creatinine at 1.6 (at baseline) today. We will avoid nephrotoxic medications and continue to monitor Endocrine: Patient has history of diabetes mellitus. A1c measured during this admission at 6.3. T4 within normal limits TSH low. A.m. cortisol 14; Normal limits. * Outpatient follow-up on TSH * Currently nothing by mouth * Currently on nothing by mouth insulin regimen * FS Problem List: 1. hypercarbic respiratory failur 2. COPD exacerbation 3. CKD (chronic kidney disease) stage 3, GFR 30-59 ml/min Pain Ratin Tomorrow's Labs & Rationales: icu bundle Plan DVT/Prophylaxis: pharmacological
--- NOTE | 2016-03-12 09:00 | NUR ---
Patient is drowsey but easily arousable to verbal stimuli. Able to move all extremities and will answer questions appropriately. NSR with pvc's and pac's on the tele monitor. HR= 60-70's. SBP: 120-140's and pt denies chest pain. He had an 6 beat run of vtach this morning and is now waiting for cardiology clearance before going forth with the endoscopy that has been postponed from 0830. He is currently on 30% bi-pap at a rate of 24, ipap:20, epap:6, lungs clear and diminished at the bases. Dr. Mallory was consulted to see patient prior to procedure since pt will need to be intubated. Abdomen is soft and non tender with + bowel sounds. Remains NPO. Telles in place draining clear yellow urine. Skin is intact and no areas of pressure injury are noted. Protocnix gtt infusing as well as D5 1/2 NS @ 50. Anesthesia in to see patient and consent obtained from pts RADHA Dhillon who verbalized understanding of all benefits and risks of procedure. Awaiting clearance by pumonary and cardiology. Dr. Fox in to see patient and poc discussed with pts son. will. continue to closely monitor patient.
--- NOTE | 2016-03-12 10:01 | PN- Pulmonary ---
Subjective HPI/Critical Care Issues: Patient remains BiPAP dependent endoscopy is pending for melena and acute blood loss anemia Objective Current Medications: Current Medications Sig/Amadeo Start time Last Medication Dose Route Stop Time Status Admin Albuterol Sulfate 3 ML TID 03/10 2200 AC 03/12 INH 0833 Amoxicillin/ 875 MG Q12 03/12 1000 AC Clavulanate Potassium PO Azithromycin 250 MG DAILY 03/11 1000 AC 03/11 PO 1024 Carvedilol 3.125 MG BID 03/10 2200 AC 03/11 PO 2246 Dextrose/Sodium 1,000 ML Q20H 03/11 1630 AC 03/11 Chloride IV 2042 Escitalopram Oxalate 10 MG DAILY 03/10 1030 AC 03/11 PO 1024 Ferrous Sulfate 325 MG DAILY 03/10 1030 DC 03/10 PO 1021 Furosemide 40 MG ONCE ONE 03/11 1130 DC 03/11 IV 03/11 1131 1718 Furosemide 20 MG ONCE ONE 03/11 0815 CAN IV 03/11 0816 Insulin Human Regular 0 TIDAC 03/11 1200 CAN SC Insulin Human Regular 0 Q6 03/11 1200 AC 03/12 SC 0536 Insulin Human Regular 0 TIDAC/HS 03/10 2100 DC 03/10 SC 2144 Ipratropium [place] 2.5 ML TID 03/10 2200 AC 03/12 INH 0833 Methylprednisolone 40 MG Q12H 03/10 1800 AC 03/12 IV 0701 Oxycodone/ 1 TAB Q6P PRN 03/10 1030 AC Acetaminophen PO Oxycodone/ 2 TAB Q6P PRN 03/10 1030 AC Acetaminophen PO Pantoprazole Sodium 40 MG Q5H 03/11 1615 AC 03/12 Sodium Chloride 100 ML IV 0700 Pantoprazole Sodium 40 MG BID 03/11 1015 DC 03/11 IV 1115 Vital Signs & I&O Last 24 Hrs of Vitals and I&O: Vital Signs Date Time Temp Pulse Resp B/P Pulse O2 O2 Flow FiO2 Ox Delivery Rate 03/12 0830 67 96 03/12 0611 84 96 03/12 0429 95 BIPAP 30% 03/12 0241 75 96 03/12 0034 74 97 03/12 0000 97 BIPAP 30% 03/12 0000 97.0 78 22 134/72 97 BIPAP 30% 03/11 2246 84 133/70 03/11 2214 83 95 03/11 2030 97 Nasal 2.0L Cannula 03/11 2015 95 Nasal 2.0L Cannula 03/11 1600 100 Nasal 2.0L Cannula 03/11 1600 97.4 88 26 104/64 100 Nasal 2.0L Cannula 03/11 1200 96 Nasal 2.0L Cannula 03/11 1025 97.1 90 20 104/59 Intake & Output 03/12 1600 03/12 0800 03/12 0000 Intake Total 532 1692 Output Total 675 1800 Balance -143 -108 Intake, Blood 300 Product Intake, IV 532 152 Intake, Oral 0 1240 Number 0 Bowel Movements Output, Urine 675 1800 Oxygen saturation 0.396% exam for chest shows diminished breath sounds there are no wheezes cardiac exam shows a regular S1 and S2 without murmurs Impression/Plan Impression/Plan Impression/Plan: 76-year-old gentleman with acute on chronic hypercapnic respiratory failure remains BiPAP dependent. If endoscopy is deemed necessary he will require intubation. Ventilator settings should be adjusted to maintain baseline chronic hypercarbia to avoid post-hypercapnic respiratory alkalosis. Recommendations: Recommend intubation for proposed endoscopy. Reposed ventilator settings tidal volume 600 respiratory rate 14 FiO2 0.3. Obtain arterial blood gases to ensure minute ventilation is appropriate for his chronic degree of hypercarbia, after 30 minutes post intubation, continue IV site Medrol
--- NOTE | 2016-03-12 10:46 | PN- Cardiology ---
Subjective Subjective: Clinically, the patient appears to be about the same. The patient was seen, examined, and all available records reviewed. The patient is tentatively scheduled for endoscopy today. The endoscopy was placed on hold this morning when the patient had a 6 beat run of ventricular tachycardia noted on the monitor. The patient denies any new symptoms. He has had no chest discomfort. His ECG this morning is otherwise unchanged. Objective Vital Signs and I&Os Vital Signs Date Time Temp Pulse Resp B/P Pulse O2 O2 Flow FiO2 Ox Delivery Rate 03/12 0830 67 96 03/12 0611 84 96 03/12 0429 95 BIPAP 30% 03/12 0241 75 96 03/12 0034 74 97 03/12 0000 97 BIPAP 30% 03/12 0000 97.0 78 22 134/72 97 BIPAP 30% 03/11 2246 84 133/70 03/11 2214 83 95 03/11 2030 97 Nasal 2.0L Cannula 03/11 2016 95 Nasal 2.0L Cannula 03/11 1600 100 Nasal 2.0L Cannula 03/11 1600 97.4 88 26 104/64 100 Nasal 2.0L Cannula 03/11 1200 96 Nasal 2.0L Cannula Intake & Output 03/12 1600 03/12 0800 03/12 0000 03/11 1600 03/11 0800 03/11 0000 Intake Total 532 1692 640 480 340 Output Total 675 1800 550 550 450 Balance -143 -108 90 -70 -110 Intake, Blood 300 350 Product Intake, IV 532 152 50 Intake, Oral 0 1240 240 480 340 Number 0 1 Bowel Movements Output, Urine 675 1800 550 550 450 Physical Exam: General Appearance: well developed/nourished, no apparent distress, alert, awake , comfortable Head: atraumatic, normal appearance Ears, Nose, Throat: normal pharynx, normal ENT inspection Neck: supple, carotids normal bilaterally Respiratory: Bilateral rhonchi Cardiovascular: Irregular rhythm with intermittent ventricular ectopy, 1/6 systolic murmur Gastrointestinal: normal bowel sounds, soft, non-tender Extremities: normal inspection Current Medications: Current Medications Sig/Amadeo Start time Last Medication Dose Route Stop Time Status Admin Albuterol Sulfate 3 ML TID 03/10 2200 AC 03/12 INH 0833 Amoxicillin/ 875 MG Q12 03/12 1000 AC Clavulanate Potassium PO Azithromycin 250 MG DAILY 03/11 1000 AC 03/11 PO 1024 Carvedilol 3.125 MG BID 03/10 2200 AC 03/11 PO 2246 Dextrose/Sodium 1,000 ML Q20H 03/11 1630 AC 03/11 Chloride IV 2042 Escitalopram Oxalate 10 MG DAILY 03/10 1030 AC 03/11 PO 1024 Furosemide 40 MG ONCE ONE 03/11 1130 DC 03/11 IV 03/11 1131 1718 Furosemide 20 MG ONCE ONE 03/11 0815 CAN IV 03/11 0816 Insulin Human Regular 0 Q6 03/11 1200 AC 03/12 SC 0536 Ipratropium [place] 2.5 ML TID 03/10 2200 AC 03/12 INH 0833 Methylprednisolone 40 MG Q12H 03/10 1800 AC 03/12 IV 0701 Oxycodone/ 1 TAB Q6P PRN 03/10 1030 AC Acetaminophen PO Oxycodone/ 2 TAB Q6P PRN 03/10 1030 AC Acetaminophen PO Pantoprazole Sodium 40 MG Q5H 03/11 1615 AC 03/12 Sodium Chloride 100 ML IV 0700 Pantoprazole Sodium 40 MG BID 03/11 1015 DC 03/11 IV 1115 Results Last 48 Hrs of Labs/Mics: Laboratory Tests 03/12/16 0955: pH 7.43, pCO2 41, pO2 82, HCO3 27, ABG O2 Sat (Measured) 95.0 L, P-50 (Temp Corrected) N, Carboxyhemoglobin 0.5 L, O2 Concentration % 30%, Respiration Rate 24, O2 Delivery Method BIPAP, Vent Mode ST, Expiratory Pressure 6, Inspiratory Pressure 20, Phlebotomy Draw Site LEFT RADIAL 03/12/16 0505: Anion Gap 9, Estimated GFR 35 L, Glucose 309 H, Calcium 8.3 L, Phosphorus 3.4 , Magnesium 2.3, Total Bilirubin 0.4, AST 24, ALT 43, Albumin 2.9 L, PT 11.8, INR 1.13, APTT 25, CBC w Diff MAN DIFF ORDERED, RBC 2.85 L, MCV 88.6, MCH 29.9, RDW 13.9, MPV 9.0, Gran % 88.0 H, Lymphocytes % 5.3 L, Monocytes % 6.6, Eosinophils % 0.1, Basophils % 0 L, Absolute Granulocytes 25.1 H, Segmented Neutrophils 93 H, Band Neutrophils 1, Absolute Lymphocytes 1.5, Monocytes 6, Absolute Monocytes 1.9 H, Absolute Eosinophils 0, Absolute Basophils 0, Platelet Estimate ADEQUATE, Polychromasia 1+, Poikilocytosis 1+, Basophilic Stippling 1+, Ovalocytes 1+, Elliptocytes FEW, PUBS MCHC 33.8, Fld Total RBCs Counted 100 03/11/16 2215: CBC w Diff NO MAN DIFF REQ, RBC 3.10 L, MCV 88.3, MCH 29.6, RDW 14.0, MPV 8.8, Gran % 84.0 H, Lymphocytes % 5.1 L, Monocytes % 10.9 H, Eosinophils % 0, Basophils % 0 L, Absolute Granulocytes 23.2 H, Absolute Lymphocytes 1.4, Absolute Monocytes 3.0 H, Absolute Eosinophils 0, Absolute Basophils 0, PUBS MCHC 33.5 03/11/16 1300: CBC w Diff Cancelled, WBC Cancelled, RBC Cancelled, Hgb Cancelled, Hct Cancelled , MCV Cancelled, MCH Cancelled, RDW Cancelled, Plt Count Cancelled, MPV Cancelled, PUBS MCHC Cancelled 03/11/16 1043: PT 12.4, INR 1.18 H, APTT 29 03/11/16 0455: Anion Gap 8, Estimated GFR 42 L, Glucose 248 H, Calcium 8.5, Phosphorus 2.5, Magnesium 2.4 H, Total Bilirubin 0.2, AST 10 L, ALT 19 L, Albumin 2.8 L, CBC w Diff MAN DIFF ORDERED, RBC 2.32 L, MCV 88.5, MCH 28.8, RDW 14.1, MPV 9.0, Gran % 89.9 H, Lymphocytes % 5.0 L, Monocytes % 5.1, Eosinophils % 0, Basophils % 0 L, Absolute Granulocytes 19.3 H, Segmented Neutrophils 80 H, Band Neutrophils 5, Absolute Lymphocytes 1.1 L, Lymphocytes 10 L, Monocytes 2, Absolute Monocytes 1.1 H, Absolute Eosinophils 0, Basophils 1, Absolute Basophils 0, Metamyelocytes 2 H, Platelet Estimate ADEQUATE, Normocytic RBCs VERIFIED, Hypochromic-Microcytic 1+, PUBS MCHC 32.5 L, Fld Total RBCs Counted 100 Assessment/Plan Assessment/Plan Assessment: 1. GI bleeding, pending endoscopy 2. History of coronary artery disease, history of primary colon infarction, cardiomyopathy with ejection fraction of 45% 3. History of ventricular ectopy, recent ectopy with multiform and monomorphic nonsustained VT 4. History of COPD on home oxygen. 5. Obesity hypoventilation syndrome 6. Obstructive sleep apnea on CPAP 7. History of prior stroke 8. Chronic renal insufficiency 9. Acute on chronic anemia 10. Hypertension 11. Hyperlipidemia 12. Diabetes Recommendations: -The patient was scheduled for endoscopy earlier today. This was transiently held due to an episode of increased ventricular ectopy and a 6 beat monomorphic VT noted on telemetry. Otherwise, the patient has been asymptomatic. There is no change on his morning ECG. His potassium, magnesium, etc. are unchanged. The patient's is already on beta blockers.. -The patient had a recent echocardiogram showed a stable ejection fraction of 45 %. -In view of the aforementioned facts, I believe that, the patient's risk for any procedures elevated due to his multiple comorbidities. However, in view of the overall picture, I believe the patient should tolerate the endoscopy without any significant issues. However, in view of his underlying issues, the possibility of recurrent arrhythmias, including atrial fibrillation does exist. -The patient should be maintained on his regular medicines, including his beta blockers if possible. -Please check a follow-up ECG later today. -Further plans after the results of the endoscopy are available. Continue telemetry? Yes
--- NOTE | 2016-03-12 11:08 | Proc Note Endoscopy ---
Endoscopy Procedure Medical History: unchanged Mental Status: alert/oriented Heart/Lung Eval Prior to Sedation: within normal limits (COPD/JUANITO/hx VT) Candidate for Sedation? Yes Procedure Date: 03/12/16 Procedure Type: EGD with clipping x 3 ([facility]) Carpet Renovator: CHANTEL MOTLEY MD ASA Classification: IV (IV-E) Indications: INDX: (*Please refer to GI consult of 03/11/2016)- Anemia/melena/ex-ASA & Plavix /ex-Aleve. 76 y/o male with numerous co-morbidities, including morbid obesity, AODM, hypertension, hyperlipidemia, ASHD post [place], CABG 3 2010 at [facility] (denies hx stent )- on aspirin and Plavix since, low EF, JUANITO, numerous admissions for COPD- on home O2- 2L nc & intermittently requiring BiPAP, hypercarbic respiratory failure , history of pneumonia, remote TIA without residual, & CKD3, admitted to [facility] 03/09/2016 with lethargy & elevated pCO2. Aleve was held on admission. The patient had a mild troponin bump, felt to be secondary to demand ischemia/ CKD/acute illness, etc. He was noted to have melena & subacute on chronic anemia , with a rising BUN, & his ASA/Plavix were held on 03/11/2016, post discussion with cardiology. The patient has had intermittent runs of Vtach, which are relatively stable, and become worse with more pronounced anemia. He is at higher than average risk, but was cleared preop by cardiology & pulmonary. His EF is 45 % & he is on beta blockers, with stable electrolytes. His pCO2 is somewhat improved after BiPAP. The patient & his son/POA, Alejo David, agree to EGD after careful explanation of the risks & benefits, including the need for probable intubation and possible prolonged extubation. They accept these risks & the patient signed informed consent (A & O x 3). The patient is currently NPO, on a Protonix drip. *Poor dentition preop. Instrument: diagnostic gastroscope Meds Received: MAC Patient's Tolerance: good Complications: none Extent Reached: second part of duodenum Procedure: Emergent upper endoscopy to the second portion of the duodenum with clipping x 3 , was performed with the Olympus high definition videoendoscope, after obtaining informed consent from the patient (informed consent was obtained in the presence of the patient's son/POA, Alejo David), with the cardiac surgeon and pulse oximeter, with the assistance of Kushal Erazo & Dr. Taylor, of [facility], along with the GI nurses, Sarina & Saba. The patient's dentition was poor preoperatively. The patient was prophylactically intubated by anesthesiology, prior to the EGD, as previously discussed with the patient and his son, Alejo. The patient was hooked up to the ventilator. A mouthpiece was then placed in the usual fashion to protect the patient's teeth. The patient was maintained in the supine position and sedated by [facility]. At this point, the endoscope was advanced from the mouth into the esophagus, using direct visualization technique. The ET tube was seen post- intubation, obscuring the vocal cords. The esophageal mucosa appeared normal. There were no esophageal rings, webs, lesions, strictures, or ulcers. There was no monilia or vesicles. There was no esophageal ribbing. The Z line was well demarcated at 40 cm. There was no significant hiatal hernia pouch. No esophageal inflammation was seen. There were no ectopic islands, nor gross Freeman's esophagus. There were no esophageal or gastric varices, nor any Jane Martin tear. The naranjo of the stomach distended normally with air insufflation. Direct and retroflexed views of the stomach were performed. There was nothing endoscopically to suggest gastroparesis or portal gastropathy. There were no bezoars. The mucosa of the gastric cardia, fundus, lesser curvature, incisura, body, and antrum appeared normal, without any gastric ulcers or gastric lesions. The pylorus was patent, without any gastric outlet obstruction or channel ulcer. The duodenal bulb exhibited *3 distinct clean- based DU, all slightly friable, without any clots or visible vessels. There was a superficial 2 cm x 1 cm DU at the floor of the duodenal bulb, as well as 2 contralateral, slightly deeper, post-bulbar DU, 6 mm and 8 mm, respectively. The remainder of the duodenal sweep was normal, and contained bile, without any fresh blood. There were no distal duodenal ulcerations, lesions, or angiodysplasias. I was not able to see the ampulla with the direct-viewing scope. The folds of the second portion of the duodenum were normal in caliber, without any flattening, nodularity, scalloping, or mosaic pattern. *After completing the endoscopic portion of the exam, each of the 3 friable DU were successfully clipped, with a total of 3 [facility] [employer] clips, which all deployed in excellent location. The clipped ulcers were irrigated with the water jet, observed for several minutes postoperatively, and were stable. No significant bleeding was seen postoperatively. *Documenting photographs were obtained and placed inside the patient's chart. The patient tolerated the procedure well. Impression: *3 distinct clean-based DU, all friable, without any clot or visible vessel: 2 cm x 1 cm superficial DU at the floor of the duodenal bulb, as well as 2 contralateral, slightly deeper, post-bulbar DU, 6 mm and 8 mm, respectively- each successfully clipped with a total of 3 [facility] clips, all deploying in excellent location. Recommendations: Maintain NPO for now. Maintain in ICU. Ventilatory support and weaning, as per ICU. Continue IV Protonix drip for another 24 hours, then if stable, decrease to Protonix 40 mg IV Q12h. T&C 2u PRBC. Check CBC Q8h. Keep Hgb > 8 (ASHD). * No NSAIDs. *Baby aspirin and Plavix are on hold for now, with the caveat that a definitive recommendation regarding antiplatelet therapy be made by cardiology in conjunction with GI, after reviewing the cardiology records of Dr. Negrete, from [facility] (according to the patient's son/POA, Alejo David, the patient never had cardiac stents, just CABG 3 in 2010. *However, this has to be verified). * Check stool Ag for H. pylori. *As a bleeding source was seen on EGD, in view of the patient's innumerable comorbidities, will not pursue baseline colonoscopy and/or PillCam, as discussed with the patient and his son/DIEGOA, Alejo David. IV antibiotics, IV steroids, ICU care, etc. as per ICU team (consider repeating CXR and/or broadening antibiotic coverage with Enterococcal UTI, regarding leukocytosis, which is in part from steroids). The above findings and recommendations were discussed with the patient (albeit partially sedated on vent postop), the patient's son/RADHA, Alejo David, Dr. Lindquist, & the medical house staff. CC: JOANA BARRETT,RAIN Swift; BOSSMAN BARRETT,ROB; LYNDA BARRETT,JOSE Suarez; FELIZ BARRETT,KAUSHIK Barrios; JOSELYN BARRETT,Eddie WHITE; JOSE BARRETT,WADE; KIM BARRETT,Jamison MEDEROS; RENATA BARRETT,CANALES
[2016-03-12 14:53] LABS: ABSOLUTE BASOPHIL COUNT 0 /CUMM (0.0-0.2); ABSOLUTE EOSINOPHIL COUNT 0 /CUMM (0.0-0.7); ABSOLUTE GRANULOCYTE CT 22.6 /CUMM (1.4-6.5); ABSOLUTE LYMPH COUNT 1.6 /CUMM (1.2-3.4); ABSOLUTE MONOCYTE COUNT 1.5 /CUMM (0.10-0.60); BASOPHIL % 0 % (0.0-2.0); EOSINOPHIL % 0 % (0-5); GRANULOCYTE % 88.1 % (42.2-75.2); HEMATOCRIT 23.2 % (42-52); MEAN CORPUSCULAR HGB 29.5 PG (27.0-31.0); MEAN CORPUSCULAR HGB CONC 33.3 G/DL (33.0-37.0); MEAN CORPUSCULAR VOLUME 88.7 FL (80.0-94.0); MEAN PLATELET VOLUME 9.3 FL (7.4-10.4); PLATELET COUNT 237 /CUMM (130-400); RBC DISTRIBUTION WIDTH 14.3 % (11.5-14.5); RED BLOOD CELL CT 2.62 /CUMM (4.70-6.10)
--- NOTE | 2016-03-12 14:54 | RADIOLOGY REPORT ---
EXAMINATION: XR PORTABLE CHEST CLINICAL INFORMATION: Oral gastric tube and ET tube placement COMPARISON: Chest x-ray 03/10/2016 TECHNIQUE: Portable view of the chest was obtained. 1:50 PM FINDINGS: Endotracheal tube approximately 3 cm above the melina. Nasogastric tube is in the stomach. Heart size is enlarged. Status post median sternotomy. Vascular wall calcifications of aorta. Persistent dense left lung base similar to prior chest x-ray. Underlying infiltrate or atelectasis could be present of the density could be just due to cardiomegaly. There is no pulmonary vascular congestion. Right lung is clear. IMPRESSION: 1. Endotracheal tube 3 cm above melina. 2. Nasogastric tube in stomach. 3. Persistent dense left lung base which could be due to the cardiomegaly however underlying infiltrate or atelectasis is not excluded.
[2016-03-12 15:08] LABS: WHITE BLOOD CELL COUNT 25.7 /CUMM (4.8-10.8)
--- NOTE | 2016-03-12 15:29 | NUR ---
At 1130, GI and anesthesia in patients room for upper GI procedure. Patient was intubated with a #8 at 23cm and taped to the left side by anesthesia. He tolerated procedure well and three ulcers were clipped. Pt was recovered by this RN and received a 250ml normal saline bolus at 1230 for a SBP in the 80's which quickly responded to the fluid bolus. He currently remains intubated (and to remain intubated per Dr. Mallory) and an OGT was placed- CXR was done for confirmation of lines. Vent settings currently AC 14/600/30/5- lungs clear and diminished at the bases. Ativan gtt has been started at a rate of 2mg/hr. SAS currently 3. New IV line established in the RH. Vitals are currently stable and pt offers no s/s of pain. Soft bilateral wrist restraints in place. Pts family has been updated on POC. Will continue to closely monitor patient.
[2016-03-12 16:00] VITALS: BP 126/64
--- NOTE | 2016-03-12 21:02 | NUR ---
INTUBATED ON RESPIRATOR, LEI NOT TO COMMAND, EASILY AWAKENED. NO S/S OF BLEEDING 1UPC INFUSED W/O S/S OF TRANSFUSION REACTION
[2016-03-13] VITALS: BP 116/56
[2016-03-13 00:12] LABS: ABSOLUTE BASOPHIL COUNT 0 /CUMM (0.0-0.2); ABSOLUTE EOSINOPHIL COUNT 0 /CUMM (0.0-0.7); ABSOLUTE GRANULOCYTE CT 23.9 /CUMM (1.4-6.5); ABSOLUTE LYMPH COUNT 1.7 /CUMM (1.2-3.4); ABSOLUTE MONOCYTE COUNT 1.5 /CUMM (0.10-0.60); BASOPHIL % 0 % (0.0-2.0); EOSINOPHIL % 0 % (0-5); GRANULOCYTE % 88.3 % (42.2-75.2); HEMATOCRIT 26.7 % (42-52); MEAN CORPUSCULAR HGB 29.4 PG (27.0-31.0); MEAN CORPUSCULAR HGB CONC 33.8 G/DL (33.0-37.0); MEAN CORPUSCULAR VOLUME 86.9 FL (80.0-94.0); MEAN PLATELET VOLUME 9.1 FL (7.4-10.4); PLATELET COUNT 228 /CUMM (130-400); RBC DISTRIBUTION WIDTH 14.5 % (11.5-14.5); RED BLOOD CELL CT 3.07 /CUMM (4.70-6.10)
[2016-03-13 05:14] LABS: ABSOLUTE BASOPHIL COUNT 0 /CUMM (0.0-0.2); ABSOLUTE EOSINOPHIL COUNT 0 /CUMM (0.0-0.7); ABSOLUTE GRANULOCYTE CT 23.3 /CUMM (1.4-6.5); ABSOLUTE LYMPH COUNT 1.9 /CUMM (1.2-3.4); ABSOLUTE MONOCYTE COUNT 1.6 /CUMM (0.10-0.60); BASOPHIL % 0 % (0.0-2.0); EOSINOPHIL % 0.1 % (0-5); GRANULOCYTE % 86.8 % (42.2-75.2); HEMATOCRIT 26.4 % (42-52); MEAN CORPUSCULAR HGB 29.3 PG (27.0-31.0); MEAN CORPUSCULAR HGB CONC 33.3 G/DL (33.0-37.0); MEAN PLATELET VOLUME 9.1 FL (7.4-10.4); PLATELET COUNT 222 /CUMM (130-400); RBC DISTRIBUTION WIDTH 14.9 % (11.5-14.5); RED BLOOD CELL CT 3.01 /CUMM (4.70-6.10); WHITE BLOOD CELL COUNT 26.8 /CUMM (4.8-10.8)
[2016-03-13 08:00] VITALS: BP 130/58
--- NOTE | 2016-03-13 08:39 | PN- Resident CRCU ---
Subjective HPI/CRCU Issues: Patient in ICU for: Hypoxic, hypercarbic respiratory failure. Elevated troponins. GI bleed. Patient was seen and examined this morning. He is sedated and intubated. Review of systems cannot be obtained because of the patient's status. Objective Vital Signs & I&O Last 8 Hrs of Vitals and I&O: Intake & Output 03/13 1600 Intake Total 605 Output Total 600 Balance 5 Intake, IV 605 Output, Urine 600 Exam General Appearance: well developed/nourished, no apparent distress, intubated Head: atraumatic, normal appearance Respiratory: bilateral rhonchi, increased air entry bilaterally, atient is intubated Cardiovascular: irregular rhythm,with mild murmur and muffled Heart sounds Gastrointestinal: soft, mildly increased bowel sounds, tenderness cannot be assisted because of the patient's status Extremities: normal inspection, no edema Current Medications: Current Medications Sig/Amadeo Start time Last Medication Dose Route Stop Time Status Admin Albuterol Sulfate 3 ML TID 03/10 2200 AC 03/13 INH 1303 Amoxicillin/ 875 MG Q12 03/12 1000 AC 03/13 Clavulanate Potassium PO 1142 Azithromycin 250 MG DAILY 03/11 1000 DC 03/12 PO 1623 Carvedilol 3.125 MG BID 03/10 2200 AC 03/12 PO 2139 Dextrose/Sodium 1,000 ML Q20H 03/11 1630 AC 03/13 Chloride IV 1143 Escitalopram Oxalate 10 MG DAILY 03/10 1030 AC 03/13 PO 1142 Furosemide 20 MG ONCE ONE 03/12 2000 DC 03/12 IV 03/12 2000 2133 Insulin Human Regular 0 Q6 03/11 1200 AC 03/13 SC 1142 Ipratropium [place] 2.5 ML TID 03/10 2200 AC 03/13 INH 1303 Lorazepam 50 MG Q24H 03/12 1245 AC 03/12 Dextrose/Water 500 ML IV 1316 Methylprednisolone 40 MG Q12H 03/10 1800 AC 03/13 IV 0548 Oxycodone/ 1 TAB Q6P PRN 03/10 1030 AC Acetaminophen PO Oxycodone/ 2 TAB Q6P PRN 03/10 1030 AC Acetaminophen PO Pantoprazole Sodium 40 MG BID 03/13 2200 AC IV Pantoprazole Sodium 40 MG Q5H 03/11 1615 DC 01/22 Sodium Chloride 100 ML IV 1527 Impression/Plan Impression/Problem List Impression: Impression/Problem List Impression: This is 76-year-old male with past medical history significant for COPD on 2 L home O2, JUANITO on nocturnal CPAP, hypertension, hyperlipidemia, type 2 diabetes mellitus, CAD with OK status post CABG, CVA, CK D stage III, recently admitted for observation 2/2 lethargy at [facility] and discharged to [facility] at [place]. He now presents to chief complaint of lethargy. Upon ED workup he was found to have acute on chronic hypercarbic and hypoxemic respiratory failure secondary to JUANITO and COPD exacerbation. He was placed on BiPAP, IV azithromycin and steroids. Initially did not improve, was transferred to ICU for further aggressive management and closer monitoring. Of note, patient had troponins of 0.33 in ED, which were then trended down. PLAN Respiratory: Patient has severe hypercarbic and hypoxemic respiratory failure requiring BiPAP 20/6 with FiO2 30. He has significant history of JUANITO on nocturnal CPAP and COPD on 2 L home O2. Patient was intubated for EGD. His ABG is within normal limits today * Patient will be intubated * Continue IV Solu-Medrol 40 mg every 12 hours * If worsened check ABG * Stop theophylline * Aspiration precautions ID: Patient is now growing greater than 100,000 units of enterococcus in his urine. Sensitive to ampicillin and Macrobid and vancomycin. He has been afebrile in hospital. Elevated white count secondary to steroids. yesterday he denied any itching burning or associated frequency and urgency. * We will Continue Augmentin 875 by mouth twice a day * Monitor patient clinically Cardiovascular: Echo suggested EF of 40. Patient has significant history of type 2 diabetes mellitus, hypertension, and OK status post CABG. Of note, during this admission patient had demand-related troponin, highest reading at 0.33, subsequently trended downward. No EKG changes. This a.m. cholesterol panel showed total cholesterol 113, LDL 51, HDL 40. Goal is to keep H&H at 8 and 24. * Hold cardiac medications including aspirin, clopidogrel, beta benigno as of . However we are unable to obtain records to confirm if he has any stents put in. Per family he does not have any. However we need to confirm with Dr. Negrete at [facility] [place]. * Continue I's and O's * Patient is on D5 1/2 NS at 50 mL per hour. * Consider restarting his home diuretics Hematology/GI: Patient had an episode of melena yesterday in the a.m. was guaiac -positive. Likely upper GI bleed. Patient denies any previous history of GI bleed. Scheduled for scope in a.m. this morning. However is compatible deferred as he had a 6 beat V. tach. * Discontinue aspirin and Plavix. Of note, patient does have history of CAD with stents in place. There is no other history available. * Nothing by mouth * DC heparin for DVT prophylaxis, start Alps. * Continue PPI drip 40 IV Q12 * Continue to guaiac all stool * H/H today is 8.9 and 27.2 Musculoskeletal: Stable from this perspective will continue to monitor Nephro: Patient has CK D stage III with creatinine at 1.6 (at baseline) today. We will avoid nephrotoxic medications and continue to monitor Endocrine: Patient has history of diabetes mellitus. A1c measured during this admission at 6.3. T4 within normal limits TSH low. A.m. cortisol 14; Normal limits. * Outpatient follow-up on TSH * Currently nothing by mouth * Currently on nothing by mouth insulin regimen * FS Diet nothing by mouth DVT prophylaxis Alps only(because of GI bleed) CODE STATUS full code Problem List: 1. hypercarbic respiratory failur Pain Ratin Tomorrow's Labs & Rationales: CBC and ICU bundle Plan DVT/Prophylaxis: pharmacological
--- NOTE | 2016-03-13 09:24 | RADIOLOGY REPORT ---
EXAMINATION: XR PORTABLE CHEST CLINICAL INFORMATION: 76-year-old male patient admitted for shortness of breath. Clinical diagnosis of COPD. Intubated. COMPARISON: Portable chest x-rays from March 08, March 10, and 03/12/2016. CT the chest on 06/26/2015. TECHNIQUE: AP portable semierect view of the chest. FINDINGS: The tip of the endotracheal tube is 5.4 cm above the melina. The enteric tube is directed below the diaphragm into the stomach. Right lung is clear. The patient is known to have a very prominent left cardiophrenic fat pad. This results in obliteration of the left costophrenic angle. There is no convincing evidence of consolidation or pulmonary edema. IMPRESSION: No convincing evidence of pneumonia. No edema. Tip of ET tube is 5.4 cm above the melina.
--- NOTE | 2016-03-13 10:28 | PN- Pulmonary ---
Subjective HPI/Critical Care Issues: Patient is status post intubation for endoscopy which revealed multiple ulcers. These developed a respiratory alkalosis. Sedation has been discontinued though the patient remains lethargic chest x-ray shows ET tube were placed without pneumonia Objective Current Medications: Current Medications Sig/Amadeo Start time Last Medication Dose Route Stop Time Status Admin Albuterol Sulfate 3 ML TID 03/10 2200 AC 03/13 INH 0838 Amoxicillin/ 875 MG Q12 03/12 1000 AC 03/12 Clavulanate Potassium PO 2138 Azithromycin 250 MG DAILY 03/11 1000 DC 03/12 PO 1623 Carvedilol 3.125 MG BID 03/10 2200 AC 03/12 PO 2139 Dextrose/Sodium 1,000 ML Q20H 03/11 1630 AC 03/11 Chloride IV 2042 Escitalopram Oxalate 10 MG DAILY 03/10 1030 AC 03/12 PO 1623 Furosemide 20 MG ONCE ONE 03/12 1999 DC 03/12 IV 03/12 2000 2133 Insulin Human Regular 0 Q6 03/11 1200 AC 03/13 SC 0546 Ipratropium [place] 2.5 ML TID 03/10 2200 AC 03/13 INH 0838 Lorazepam 2 MG ONE ONE 03/12 1300 DC 03/12 IV 03/12 1301 1251 Lorazepam 50 MG Q24H 03/12 1245 AC 03/12 Dextrose/Water 500 ML IV 1316 Methylprednisolone 40 MG Q12H 03/10 1800 AC 03/13 IV 0548 Oxycodone/ 1 TAB Q6P PRN 03/10 1030 AC Acetaminophen PO Oxycodone/ 2 TAB Q6P PRN 03/10 1030 AC Acetaminophen PO Pantoprazole Sodium 40 MG Q5H 03/11 1615 AC 03/13 Sodium Chloride 100 ML IV 0551 Sodium Chloride 250 ML BOLUS ONE 03/12 1245 DC 03/12 IV 03/12 1344 1238 Vital Signs & I&O Last 24 Hrs of Vitals and I&O: Vital Signs Date Time Temp Pulse Resp B/P Pulse O2 O2 Flow FiO2 Ox Delivery Rate 03/13 1016 30 03/13 0834 30 03/13 0800 98.1 48 14 130/58 97 Ventilator 30% 03/13 0800 97 Ventilator 30% 03/13 0603 30 03/13 0402 96 Ventilator 30% 03/13 0321 30 03/13 0117 30 03/13 0000 95 Ventilator 30% 03/13 0000 97.6 60 14 116/56 96 Ventilator 30% 03/12 2218 30 03/12 2139 66 123/57 03/12 2000 Ventilator 30% 03/12 1913 30 03/12 1615 30 03/12 1600 99.3 70 14 126/64 97 Ventilator 30% 03/12 1600 97 Ventilator 30% 03/12 1409 30 03/12 1230 30 03/12 1200 96 Ventilator 30% 03/12 1132 66 97 Intake & Output 03/13 1600 03/13 0800 03/13 0000 Intake Total 720 820 Output Total 1250 750 Balance -530 70 Intake, Blood 350 Product Intake, IV 720 470 Output, Urine 1250 750 Oxygen saturation 0.397% exam for chest shows rare rhonchi cardiac exam shows regular S1 and S2 without murmurs Impression/Plan Impression/Plan Impression/Plan: 76-year-old gentleman with acute on chronic hypercapnic respiratory failure remains BiPAP dependent. If endoscopy is deemed necessary he will require intubation. Patient has a respiratory alkalosis ventilator settings to be adjusted to respiratory rate 10 tidal volume 500 with follow-up ABG in 30 minutes. Recommendations: . Hold sedation.correct respiratory alkalosis. Attempt weaning from mechanical ventilation after respiratory alkalosis corrected.
--- NOTE | 2016-03-13 11:13 | NUR ---
Patient remains sedated, SAS -3, ativan gtt was placed on hold at 0745 this morning r/t ? of extubation and bradycardia. He is arousable to tactile stimuli, moves all extremities but not to command. Pupils are approx 3mm and sluggish. Soft bilateral wrist restraints in place- Per report patient has a hx ov CVA and is slow to respond at baseline. SB on tele monitor, with heart rate as low as 44 at times. PVC's, bigeminy, and wide complxed ventricular beats. Dr. Larson was notified and and EKG was done this morning. SBP: 120-140's. Remains intubated with a #8 to the left at 23cm, Vent settings were changed by Dr. Mallory at 1010 after ABG results were reviewed and are now AC 10/500/30/5. Lungs clear with scant clear thin secretions noted. Mouth care provided. Abdomen is soft non tender with + bowel sounds. OGT in place to low wall suction with minimal green output. Telles remains in place draining clear yellow urine. Skin is intact. Protonix gtt continues to infuse- D5 1/2 NS @ 50mls/hr. No s/s of pain are noted. H/H stable after 1 unit of prbc yesterday evening. Will continue to closely monitor patient.
--- NOTE | 2016-03-13 13:00 | PN- Gastroenterology ---
Assessment/Plan Assessment/Recommendations: 76-year-old right handed male, fair historian, with numerous comorbidities, including morbid obesity, AODM, hypertension, hyperlipidemia, ASHD post KS, CABG numerous admissions for COPD- on home O2- 2L nc & intermittently requiring BiPAP , hypercarbic respiratory failure, history of pneumonia, remote TIA without residual, & CKD3. The patient denies having had any previous EGD & does not think he ever had a colonoscopy. The patient was recently admitted to [facility] respiratory failure and sent to [place] for rehabilitation. He was then admitted to [facility] 03/09/2016 for lethargy, and found to be hypoxic with recurrent hypercarbic respiratory failure, requiring BiPAP. He was put on antibiotics for possible PNA & is on steroids for COPD. He has chronic anemia but denies any previous history of transfusion, although he is not certain if he received any blood during his CABG. The patient has chronic dark stool on iron, however his admission Hgb 8.5 dropped to 6.7 on 03/11/2016, black OB-positive stool. The patient was on outpatient Aleve, as well as Prednisone. His NSAIDs were not resumed on admission the ICU team stop the aspirin and Plavix 2016, after noting the increasing anemia, rising BUN, and melena. The patient has been seen by ICU and cardiology. He had a mild troponin bump this admission , which was actually higher in 06/2015, felt to be secondary to demand ischemia. The patient ate solid food for breakfast this morning at 9:15 a.m., prohibiting EGD for at least 8 hours. He has been NPO since. The patient currently has no GI complaints. His son/POA, Alejo David, was in the ICU room # 110, to assist with the history. *Although the patient is DNI/DNR , it is okay to intubate him temporarily for a procedure, according to his son, Alejo. The patient denies any GERD, odynophagia, dysphagia, early satiety, hematemesis, abdominal pain, previous abdominal surgery, diarrhea, constipation, obstipation, tenesmus, or rectal bleeding. There is no chest pain. He has baseline shortness of breath, without change. He is currently off BiPAP. He was put on Protonix 40 mg IV daily. There is no family history of any GI emergency, GI disease, or inherited liver disease. The patient is an ex-75-pack -year cigarette smoker, stopping 2010. He has a remote history of moderate EtOH , mostly on the weekends, stopping 2010. He currently looks relatively comfortable, despite his numerous issues. 03/08/2016: Admission labs- WBC 13.5 (73% gran/10 gran Ab- on steroids), H/H a 0.5/26, normal MCV, PLT 319, BUN/Cr 40/1.6, GFR 42, normal LFTs except albumin 3.3, globulin 2.6, peak troponin 0.33, BNP 6190. 03/09/2016: TSH 1.01, HgbA1C 6.3 03/09/2016: ABG 30% BiPAP- 7.33/56/78/94%, HCO3 29, CO HB 0.3 03/11/2016: PT 12.4, INR 1.18, PTT 29; WBC 21.5 (80S/5B/10L/2M/1 Baso/2 [place]), H /H6.7/20.6, PLT 304. 03/08/2016: EKG- NSR @ 69, normal axis, IVCD, PRWP, IWMI, paired PVC. 03/08/2016: PORTABLE CHEST XRAY- Enlarged cardiac silhouette which limits assessment of the left base. CABG. No definite acute findings. 03/10/2016: PORTABLE CHEST XRAY- CABG. Stable enlarged cardiac silhouette. Limited evaluation of the left base as noted above. However no change. *Clinically, the patient appears to be having an upper GI bleed, with elevated BUN:Cr ratio, melena, ex-ASA 81 mg daily, Plavix & Aleve. Additionally, he has COPD and is on Prednisone, both of which are risk factors for PUD. Other possibilities include gastritis, GERD, angiodysplasia, NSAID gastropathy, Dieulafoy lesion, doubt neoplasm. History does not seem to be consistent with cirrhosis to suggest varices. A primary small bowel or colonic source seems less likely clinically, but certainly not impossible. Unfortunately, the patient ate solid food this morning 03/11/2016, prohibiting EGD for at least 8 hours after. The risks and benefits of EGD were discussed the patient and his son/POA, Alejo Daivd, at the bedside in the ICU, including the high possibility of intubation. He is DNR/DNI, but they are agreeable to intubation to protect his airway for the EGD, if needed. Informed consent for EGD was obtained from the patient, after careful explanation of the risks & benefits, in the presence of his son/POA, Alejo David. They are aware that it could take some time to extubate the patient, keeping in mind his COPD, JUANITO, etc. If an upper GI source is found, they do not wish to pursue colonoscopy, which may have never been done before, keeping in mind his numerous comorbidities. They may reconsider colonoscopy and/or PillCam, should the EGD be unremarkable. As there is no active hematemesis and the patient ate solid food this morning, tentative EGD with anesthesiology will be scheduled for 03/12/2016 at 8 AM by the bedside in the ICU. This was discussed with Dr. Taylor, and with the GI nurses on-call, Sarina and Saba. *As of 03/12/16, the patient is asymptomatic, resting on BiPAP. Earlier this morning, he had an asymptomatic run of either 6 beat or 9 beat V tach (looked unifocal to me, with an intermittent APC). Anesthesia was here to evaluate the patient, but we are deferring EGD that was scheduled for 8 AM on 03/12/16, until he is seen again by cardiology this morning. The patient did not drop his blood pressure. He received 2 units PRBC on 03/11/2016, with an appropriate rise in his Hgb, which has again started to slowly drift down. His BUN has climbed. There is no overt hematemesis or BRBPR. He previously had melena. He denies any chest pain, nausea, vomiting, or abdominal pain. His baseline SOB is without change. His leukocytosis has increased (on steroids), although he is afebrile. He remains on Azithromycin to cover his lungs, as per the ICU team, although he also has an Enterococcal UTI. He remains on an IV Protonix drip, and is NPO, getting IVF: D5 1/2 NS @ 50 cc/hr. Aspirin & Plavix remain on hold for now, as per previous discussion with cardiology. 03/12/2016: *EGD with clipping x 3 ([facility])- *prophylactically intubated preop- *3 distinct clean-based DU, all friable, without any clot or visible vessel: 2 cm x 1 cm superficial DU at the floor of the duodenal bulb, as well as 2 contralateral, slightly deeper, post-bulbar DU, 6 mm and 8 mm, respectively- each successfully clipped with a total of 3 [facility] clips, all deploying in excellent location. 03/12/2016: XR PORTABLE CHEST- 1. Endotracheal tube 3 cm above melina. 2. Nasogastric tube in stomach. 3. Persistent dense left lung base which could be due to the cardiomegaly however underlying infiltrate or atelectasis is not excluded. 4. Post CABG. 03/13/2016: XR PORTABLE CHEST- No convincing evidence of pneumonia (prominent left cardiophrenic fat pad, without change). No edema. Tip of ET tube is 5.4 cm above the melina. Post CABG. *As of 03/13/2016, the patient remains intubated post-EGD, due to respiratory alkalosis, which is improving, after adjusting vent settings. Some of the respiratory alkalosis could be from sedation, on the ventilator. His Ativan has been held, but the patient is still somewhat lethargic. He is getting medications via OGT. He is still NPO. There was no blood or coffee grounds via OGT. Last BM 2d ago was dark (on Fe), albeit OB-positive. Subsequent chest x- rays x 2 post EGD have not shown pneumonia (left epicardial fat pad). He has received a total of 3u PRBC so far this admission, last on 03/12/2016. He is otherwise hemodynamically stable, with Tm 99.3. He remains on an IV Protonix drip. He remains on IV SoluMedrol 40 mg Q12h, per the ICU. Azithromycin has been switched to Augmentin 875 mg po BID, in part to cover his Enterococcal UTI. Leukocytosis remains, but this is multifactorial (on steroids). *His BUN is declining. CM: SB alternating with slow wide complex arrhythmia. *SUGGEST- *May start clears po via OGT today & if stable, advance diet once extubated. Maintain in ICU. Ventilatory support and weaning, as per ICU. *Can switch IV Protonix drip to Protonix 40 mg IV Q12h. T&C 2u PRBC. Check CBC Q12h for now. Keep Hgb > 8 (ASHD). *No NSAIDs. *Baby aspirin and Plavix are on hold for now, with the caveat that a definitive recommendation regarding antiplatelet therapy be made by cardiology, after reviewing the cardiology records of Dr. Negrete, from [facility] (according to the patient's son/POA, Alejo David, the patient never had cardiac stents, just CABG 3 in 2010. *However, this has to be verified). * Check stool Ag for H. pylori. *As a bleeding source was seen on EGD, in view of the patient's innumerable comorbidities, will not pursue baseline colonoscopy and/or PillCam, as discussed with the patient and his son/POA, Alejo David. Antibiotics (Azithromycin switched to Augmentin, in part to cover Enterococcal UTI/multifactorial leukocytosis), IV steroids, ICU care, etc. as per ICU team. The above findings and recommendations were previously discussed with the patient (currently lethargic on vent postop, sedation held), and again today , with the patient's son/DIEGOA, Alejo David, Dr. Lindquist, & the medical house staff. *Further inpatient GI follow up as needed (please call). Problem List: 1. Duodenal ulcer disease 2. Anemia 3. Melena 4. Malnutrition 5. Obesity Subjective Subjective: 03/12/2016: *EGD with clipping x 3 ([facility])- *prophylactically intubated preop- *3 distinct clean-based DU, all friable, without any clot or visible vessel: 2 cm x 1 cm superficial DU at the floor of the duodenal bulb, as well as 2 contralateral, slightly deeper, post-bulbar DU, 6 mm and 8 mm, respectively- each successfully clipped with a total of 3 [facility] clips, all deploying in excellent location. *As of 03/13/2016, the patient remains intubated post-EGD, due to respiratory alkalosis, which is improving, after adjusting vent settings. Some of the respiratory alkalosis could be from sedation, on the ventilator. His Ativan has been held, but the patient is still somewhat lethargic. He is getting medications via OGT. He is still NPO. There was no blood or coffee grounds via OGT. Last BM 2d ago was dark (on Fe), albeit OB-positive. Subsequent chest x- rays x 2 have not shown pneumonia (left epicardial fat pad). He has received a total of 3u PRBC so far this admission, last on 03/12/2016. He is otherwise hemodynamically stable, with Tm 99.3. He remains on an IV Protonix drip. He remains on IV SoluMedrol 40 mg Q12h, per the ICU. Azithromycin has been switched to Augmentin 875 mg po BID, in part to cover his Enterococcal UTI. Leukocytosis remains, but this is multifactorial. His BUN is declining. CM: SB alternating with slow wide complex arrhythmia. Review of Systems: *Previous full 14 point review of systems otherwise noncontributory, and as per HPI, *although currently unobtainable to get ROS from patient, due to his lethargy on the ventilator. (Previous) Review of Systems- Constitutional: Reports: malaise, weakness. Denies: chills, diaphoresis, fever, unexplained weight loss. EENTM: Denies: blurred vision, double vision, visual changes, eye pain, eye drainage, eye tearing, icterus, ear discharge, ear pain, ear redness, hearing changes, nasal congestion, epistaxis, nasal pain, throat pain, throat swelling, mouth pain, tooth pain. Cardiovascular: Denies: chest pain, edema, orthopena, palpitations, peripheral edema, syncope. Respiratory: Reports: short of breath. Denies: cough, hemoptysis, orthopnea, sputum production, stridor, wheezing. GI: Reports: melena- resolved (stool was dark on Fe). Denies: abdominal pain, bloating, constipation, diarrhea, distention, bowel incontinence, nausea, bloody stool, changes in stool, vomiting, steatorrhea. Genitourinary: Denies: discharge, dysuria, frequency, hematuria, hesitation, nocturia, pain, urgency. Musculoskeletal: Reports: joint pain (DJD). Denies: back pain, gout, joint swelling, muscle pain, muscle stiffness, neck pain. Skin: Denies: cysts, change in skin color, change in hair/nails, dryness, erythema, jaundice, lesions, lymphangitis, lumps, moles, rash. Neurological/Psychological: Reports: weakness. Denies: anxiety, ataxia, cognitive dysfunction, confusion, depressed, dementia, emotional problems, headache, numbness, paresthesia, pre-existing deficit, petit mal seizures, tingling, tremors, tonic-clonic seizures, unable to move lower ext , unable to move upper ext. Hematologic/Endocrine: Denies: bruising, bleeding, polyuria, polydipsia. Immunologic/Allergic: Denies: splenectomy, HIV/AIDS, lymphadenopathy. All Other Systems: Reviewed and Negative Objective Vital Signs and I&Os Vital Signs Date Time Temp Pulse Resp B/P Pulse O2 O2 Flow FiO2 Ox Delivery Rate 03/13 1304 30 03/13 1200 97 Ventilator 30% 03/13 1026 50 113/50 03/13 1016 30 03/13 0834 30 03/13 0800 98.1 48 14 130/58 97 Ventilator 30% 03/13 0800 97 Ventilator 30% 03/13 0603 30 03/13 0402 96 Ventilator 30% 03/13 0321 30 03/13 0117 30 03/13 0000 95 Ventilator 30% 03/13 0000 97.6 60 14 116/56 96 Ventilator 30% 03/12 2218 30 03/12 2139 66 123/57 03/12 2000 Ventilator 30% 03/12 1913 30 03/12 1615 30 03/12 1600 99.3 70 14 126/64 97 Ventilator 30% 03/12 1600 97 Ventilator 30% 03/12 1409 30 Intake & Output 03/13 1600 03/13 0400 03/12 1600 03/12 0400 03/11 1600 03/11 0400 Intake Total 928 123 9284 1692 1120 340 Output Total 4339 422 4092 1800 1100 450 Balance -530 70 282 -108 20 -110 Intake, Blood 350 300 350 Product Intake, IV 399 996 3317 152 50 Intake, Oral 0 1240 720 340 Number 0 1 Bowel Movements Output, Urine 3654 377 2722 1800 1100 450 Physical Exam: Well-developed, morbidly obese male, NAD, somewhat lethargic (previously sedated ), on ventilator. Sclera anicteric. Conjunctiva pink. Oropharynx: OGT/ETT ( previously poor dentition, without oral thrush or aphthous ulcers). There is no adenopathy, thyromegaly, JVD or HJR. No peripheral stigmata of inflammatory bowel disease or chronic liver disease on exam. No spiders on the anterior chest wall. Bilateral gynecomastia without mass, secondary to obesity. No CVA tenderness. Lungs: clear to A&P, with decreased breath sounds at the bases bilaterally. Prolonged expiratory phase. No wheezing, rales, or rhonchi. Heart exam: regular rate rhythm, S1 and S2, without any significant murmur. CABG scar. Abdominal exam: normal bowel sounds, soft belly, morbidly obese, nontender , without guarding or rebound. No mass or organomegaly, within the limits of the body habitus. Negative Palacios sign. No fluid shift. No pulsatile mass. No epigastric bruits. Repeat digital rectal exam: deferred (melena, OB+ API, earlier on 03/11/2016, on Fe then). Extremities: without cyanosis or clubbing. Trace pedal edema B/L. DJD. B/L LE ALPS. No palpable cords. Distal pulses 1+ bilaterally. DTRs 1+ bilaterally. *Currently lethargic, post-sedation on vent, previously alert and oriented x 3. Right-handed. CN II-XII previously intact ( patient uncooperative with CN testing at present). 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 No tremor. No asterixis. Current Medications: Current Medications Sig/Amadeo Start time Last Medication Dose Route Stop Time Status Admin Albuterol Sulfate 3 ML TID 03/10 2200 AC 03/13 INH 1303 Amoxicillin/ 875 MG Q12 03/12 1000 AC 03/13 Clavulanate Potassium PO 1142 Azithromycin 250 MG DAILY 03/11 1000 DC 03/12 PO 1623 Carvedilol 3.125 MG BID 03/10 2200 AC 03/12 PO 2139 Dextrose/Sodium 1,000 ML Q20H 03/11 1630 AC 03/13 Chloride IV 1143 Escitalopram Oxalate 10 MG DAILY 03/10 1030 AC 03/13 PO 1142 Furosemide 20 MG ONCE ONE 03/12 2000 DC 03/12 IV 03/12 2000 2133 Insulin Human Regular 0 Q6 03/11 1200 AC 03/13 SC 1142 Ipratropium [place] 2.5 ML TID 03/10 2200 AC 03/13 INH 1303 Lorazepam 50 MG Q24H 03/12 1245 AC 03/12 Dextrose/Water 500 ML IV 1316 Methylprednisolone 40 MG Q12H 03/10 1800 AC 03/13 IV 0548 Oxycodone/ 1 TAB Q6P PRN 03/10 1030 AC Acetaminophen PO Oxycodone/ 2 TAB Q6P PRN 03/10 1030 AC Acetaminophen PO Pantoprazole Sodium 40 MG Q5H 03/11 1615 03/13 Sodium Chloride 100 ML IV 1025 Results Pertinent Lab Results: Laboratory Tests 03/13 03/13 1146 0905 Blood Gas pH (7.35 - 7.45 PH) 7.44 7.52 H pCO2 (35 - 45 TORR) 36 28 L pO2 (80 - 100 TORR) 85 76 L HCO3 (21 - 28 MEQ/L) 25 23 ABG O2 Sat (Measured) (>96.0 %) 95.0 L 94.0 L Carboxyhemoglobin (1.5 - 5.0 %) 0.4 L 0.3 L O2 Concentration % 30 30 Temperature (97.0 - 100.0 FARH) 98.1 Respiration Rate (BPM) 10 14 O2 Delivery Method VENT VENT Vent Mode VC-AC VC-AC Expiratory Pressure (CMH2O/P) 5 5 Tidal Volume (CC) 500 600 Miscellaneous Phlebotomy Draw Site RIGHT RADIAL RIGHT RADIAL 03/13 03/12 0415 2345 Chemistry Sodium (137 - 145 mmol/L) 134 L Potassium (3.5 - 5.1 mmol/L) 4.2 Chloride (98 - 107 mmol/L) 100 Carbon Dioxide (22 - 30 mmol/L) 25 Anion Gap (5 - 16) 9 BUN (9 - 20 mg/dL) 68 H Creatinine (0.7 - 1.2 mg/dL) 1.8 H Estimated GFR (>60 ml/min) 37 L Glucose (65 - 99 mg/dL) 332 H Calcium (8.4 - 10.2 mg/dL) 8.2 L Phosphorus (2.5 - 4.5 mg/dL) 3.5 Magnesium (1.6 - 2.3 mg/dL) 2.3 Total Bilirubin (0.2 - 1.3 mg/dL) 0.5 AST (17 - 59 U/L) 15 L ALT (21 - 72 U/L) 37 Albumin (3.5 - 5.0 g/dL) 2.7 L Hematology CBC w Diff MAN DIFF ORDERED NO MAN DIFF REQ WBC (4.8 - 10.8 /CUMM) 26.8 H 27.0 H RBC (4.70 - 6.10 /CUMM) 3.01 L 3.07 L Hgb (14.0 - 18.0 G/DL) 8.8 L 9.0 L Hct (42 - 52 %) 26.4 L 26.7 L MCV (80.0 - 94.0 FL) 88.0 86.9 MCH (27.0 - 31.0 PG) 29.3 29.4 RDW (11.5 - 14.5 %) 14.9 H 14.5 Plt Count (130 - 400 /CUMM) 222 228 MPV (7.4 - 10.4 FL) 9.1 9.1 Gran % (42.2 - 75.2 %) 86.8 H 88.3 H Lymphocytes % (20.5 - 51.1 %) 7.0 L 6.1 L Monocytes % (1.7 - 9.3 %) 6.1 5.6 Eosinophils % (0 - 5 %) 0.1 0 Basophils % (0.0 - 2.0 %) 0 L 0 L Absolute Granulocytes (1.4 - 6.5 /CUMM) 23.3 H 23.9 H Segmented Neutrophils (42.2 - 75.2 %) 83 H Band Neutrophils (0.0 - 5.0 %) 4 Absolute Lymphocytes (1.2 - 3.4 /CUMM) 1.9 1.7 Lymphocytes (20.5 - 51.1 %) 10 L Monocytes (1.7 - 9.3 %) 3 Absolute Monocytes (0.10 - 0.60 /CUMM) 1.6 H 1.5 H Absolute Eosinophils (0.0 - 0.7 /CUMM) 0 0 Absolute Basophils (0.0 - 0.2 /CUMM) 0 0 Platelet Estimate (ADEQUATE) ADEQUATE Polychromasia 1+ Anisocytosis 1+ PUBS MCHC (33.0 - 37.0 G/DL) 33.3 33.8 03/12 03/12 1330 1305 Hematology CBC w Diff NO MAN DIFF REQ WBC (4.8 - 10.8 /CUMM) 25.7 H RBC (4.70 - 6.10 /CUMM) 2.62 L Hgb (14.0 - 18.0 G/DL) 7.7 L Hct (42 - 52 %) 23.2 L MCV (80.0 - 94.0 FL) 88.7 MCH (27.0 - 31.0 PG) 29.5 RDW (11.5 - 14.5 %) 14.3 Plt Count (130 - 400 /CUMM) 237 MPV (7.4 - 10.4 FL) 9.3 Gran % (42.2 - 75.2 %) 88.1 H Lymphocytes % (20.5 - 51.1 %) 6.2 L Monocytes % (1.7 - 9.3 %) 5.7 Eosinophils % (0 - 5 %) 0 Basophils % (0.0 - 2.0 %) 0 L Absolute Granulocytes (1.4 - 6.5 /CUMM) 22.6 H Absolute Lymphocytes (1.2 - 3.4 /CUMM) 1.6 Absolute Monocytes (0.10 - 0.60 /CUMM) 1.5 H Absolute Eosinophils (0.0 - 0.7 /CUMM) 0 Absolute Basophils (0.0 - 0.2 /CUMM) 0 PUBS MCHC (33.0 - 37.0 G/DL) 33.3 Other Body Source Stool H. pylori Ag Cancelled 03/12 03/12 1245 0955 Blood Gas pH (7.35 - 7.45 PH) 7.38 7.43 pCO2 (35 - 45 TORR) 43 41 pO2 (80 - 100 TORR) 87 82 HCO3 (21 - 28 MEQ/L) 25 27 ABG O2 Sat (Measured) (>96.0 %) 95.0 L 95.0 L P-50 (Temp Corrected) N N Carboxyhemoglobin (1.5 - 5.0 %) 0.2 L 0.5 L O2 Concentration % 30% 30% Respiration Rate (BPM) 14 24 O2 Delivery Method VENT BIPAP Vent Mode AC ST Expiratory Pressure (CMH2O/P) 0 6 Tidal Volume (CC) 600 Inspiratory Pressure (CM H2O P) 20 Pressure Support (CMH2O/P) 0 Miscellaneous Phlebotomy Draw Site LEFT RADIAL LEFT RADIAL 03/12 03/11 0505 2215 Chemistry Sodium (137 - 145 mmol/L) 136 L Potassium (3.5 - 5.1 mmol/L) 5.0 Chloride (98 - 107 mmol/L) 99 Carbon Dioxide (22 - 30 mmol/L) 28 Anion Gap (5 - 16) 9 BUN (9 - 20 mg/dL) 86 H Creatinine (0.7 - 1.2 mg/dL) 1.9 H Estimated GFR (>60 ml/min) 35 L Glucose (65 - 99 mg/dL) 309 H Calcium (8.4 - 10.2 mg/dL) 8.3 L Phosphorus (2.5 - 4.5 mg/dL) 3.4 Magnesium (1.6 - 2.3 mg/dL) 2.3 Total Bilirubin (0.2 - 1.3 mg/dL) 0.4 AST (17 - 59 U/L) 24 ALT (21 - 72 U/L) 43 Albumin (3.5 - 5.0 g/dL) 2.9 L Coagulation PT (9.4 - 12.5 SEC) 11.8 INR (0.90 - 1.17) 1.13 APTT (25 - 37 SEC) 25 Hematology CBC w Diff MAN DIFF ORDERED NO MAN DIFF REQ WBC (4.8 - 10.8 /CUMM) 28.5 H 27.6 H RBC (4.70 - 6.10 /CUMM) 2.85 L 3.10 L Hgb (14.0 - 18.0 G/DL) 8.5 L 9.2 L Hct (42 - 52 %) 25.3 L 27.3 L MCV (80.0 - 94.0 FL) 88.6 88.3 MCH (27.0 - 31.0 PG) 29.9 29.6 RDW (11.5 - 14.5 %) 13.9 14.0 Plt Count (130 - 400 /CUMM) 253 266 MPV (7.4 - 10.4 FL) 9.0 8.8 Gran % (42.2 - 75.2 %) 88.0 H 84.0 H Lymphocytes % (20.5 - 51.1 %) 5.3 L 5.1 L Monocytes % (1.7 - 9.3 %) 6.6 10.9 H Eosinophils % (0 - 5 %) 0.1 0 Basophils % (0.0 - 2.0 %) 0 L 0 L Absolute Granulocytes (1.4 - 6.5 /CUMM) 25.1 H 23.2 H Segmented Neutrophils (42.2 - 75.2 %) 93 H Band Neutrophils (0.0 - 5.0 %) 1 Absolute Lymphocytes (1.2 - 3.4 /CUMM) 1.5 1.4 Monocytes (1.7 - 9.3 %) 6 Absolute Monocytes (0.10 - 0.60 /CUMM) 1.9 H 3.0 H Absolute Eosinophils (0.0 - 0.7 /CUMM) 0 0 Absolute Basophils (0.0 - 0.2 /CUMM) 0 0 Platelet Estimate (ADEQUATE) ADEQUATE Polychromasia 1+ Poikilocytosis 1+ Basophilic Stippling 1+ Ovalocytes 1+ Elliptocytes FEW PUBS MCHC (33.0 - 37.0 G/DL) 33.8 33.5 Other Body Source Fld Total RBCs Counted (%) 100 03/11 03/11 03/11 1300 1043 0455 Chemistry Sodium (137 - 145 mmol/L) 141 Potassium (3.5 - 5.1 mmol/L) 5.4 H Chloride (98 - 107 mmol/L) 103 Carbon Dioxide (22 - 30 mmol/L) 30 Anion Gap (5 - 16) 8 BUN (9 - 20 mg/dL) 67 H Creatinine (0.7 - 1.2 mg/dL) 1.6 H Estimated GFR (>60 ml/min) 42 L Glucose (65 - 99 mg/dL) 248 H Calcium (8.4 - 10.2 mg/dL) 8.5 Phosphorus (2.5 - 4.5 mg/dL) 2.5 Magnesium (1.6 - 2.3 mg/dL) 2.4 H Total Bilirubin (0.2 - 1.3 mg/dL) 0.2 AST (17 - 59 U/L) 10 L ALT (21 - 72 U/L) 19 L Albumin (3.5 - 5.0 g/dL) 2.8 L Coagulation PT (9.4 - 12.5 SEC) 12.4 INR (0.90 - 1.17) 1.18 H APTT (25 - 37 SEC) 29 Hematology CBC w Diff Cancelled MAN DIFF ORDERED WBC (4.8 - 10.8 /CUMM) Cancelled 21.5 H RBC (4.70 - 6.10 /CUMM) Cancelled 2.32 L Hgb (14.0 - 18.0 G/DL) Cancelled 6.7 *L Hct (42 - 52 %) Cancelled 20.6 L MCV (80.0 - 94.0 FL) Cancelled 88.5 MCH (27.0 - 31.0 PG) Cancelled 28.8 RDW (11.5 - 14.5 %) Cancelled 14.1 Plt Count (130 - 400 /CUMM) Cancelled 304 MPV (7.4 - 10.4 FL) Cancelled 9.0 Gran % (42.2 - 75.2 %) 89.9 H Lymphocytes % (20.5 - 51.1 %) 5.0 L Monocytes % (1.7 - 9.3 %) 5.1 Eosinophils % (0 - 5 %) 0 Basophils % (0.0 - 2.0 %) 0 L Absolute Granulocytes (1.4 - 6.5 /CUMM) 19.3 H Segmented Neutrophils (42.2 - 75.2 %) 80 H Band Neutrophils (0.0 - 5.0 %) 5 Absolute Lymphocytes (1.2 - 3.4 /CUMM) 1.1 L Lymphocytes (20.5 - 51.1 %) 10 L Monocytes (1.7 - 9.3 %) 2 Absolute Monocytes (0.10 - 0.60 /CUMM) 1.1 H Absolute Eosinophils (0.0 - 0.7 /CUMM) 0 Basophils (0.0 - 2.0 %) 1 Absolute Basophils (0.0 - 0.2 /CUMM) 0 Metamyelocytes (0.0 - 1.0 %) 2 H Platelet Estimate (ADEQUATE) ADEQUATE Normocytic RBCs VERIFIED Hypochromic-Microcytic 1+ PUBS MCHC (33.0 - 37.0 G/DL) Cancelled 32.5 L Other Body Source Fld Total RBCs Counted (%) 100 Imaging/Other Studies: 03/08/2016: EKG- NSR @ 69, normal axis, IVCD, PRWP, IWMI, paired PVC. 03/08/2016: PORTABLE CHEST XRAY- Enlarged cardiac silhouette which limits assessment of the left base. CABG. No definite acute findings. 03/10/2016: PORTABLE CHEST XRAY- CABG. Stable enlarged cardiac silhouette. Limited evaluation of the left base as noted above. However no change. 03/12/2016: *EGD with clipping x 3 ([facility])- *prophylactically intubated preop- *3 distinct clean-based DU, all friable, without any clot or visible vessel: 2 cm x 1 cm superficial DU at the floor of the duodenal bulb, as well as 2 contralateral, slightly deeper, post-bulbar DU, 6 mm and 8 mm, respectively- each successfully clipped with a total of 3 [facility] clips, all deploying in excellent location. 03/12/2016: XR PORTABLE CHEST- 1. Endotracheal tube 3 cm above melina. 2. Nasogastric tube in stomach. 3. Persistent dense left lung base which could be due to the cardiomegaly however underlying infiltrate or atelectasis is not excluded. 4. Post CABG. 03/13/2016: XR PORTABLE CHEST- No convincing evidence of pneumonia (prominent left cardiophrenic fat pad, without change). No edema. Tip of ET tube is 5.4 cm above the melina. Post CABG.
--- NOTE | 2016-03-13 14:35 | PN- Cardiology ---
Subjective Subjective: The patient remains intubated postprocedure. He is alert and responsive. He denies any significant complaints. Objective Vital Signs and I&Os Vital Signs Date Time Temp Pulse Resp B/P Pulse O2 O2 Flow FiO2 Ox Delivery Rate 03/13 1304 30 03/13 1200 97 Ventilator 30% 03/13 1026 50 113/50 03/13 1016 30 03/13 0834 30 03/13 0800 98.1 48 14 130/58 97 Ventilator 30% 03/13 0800 97 Ventilator 30% 03/13 0603 30 03/13 0402 96 Ventilator 30% 03/13 0321 30 03/13 0117 30 03/13 0000 95 Ventilator 30% 03/13 0000 97.6 60 14 116/56 96 Ventilator 30% 03/12 2218 30 03/12 2139 66 123/57 03/12 2000 Ventilator 30% 03/12 1913 30 03/12 1615 30 03/12 1600 99.3 70 14 126/64 97 Ventilator 30% 03/12 1600 97 Ventilator 30% Intake & Output 03/13 1600 03/13 0800 03/13 0000 03/12 1600 03/12 0800 03/12 0000 Intake Total 605 984 816 2827 532 1692 Output Total 600 1250 750 100 404 3214 Balance 5 -530 70 425 -143 -108 Intake, Blood 350 300 Product Intake, IV 605 469 796 7032 532 152 Intake, Oral 0 1240 Number 0 Bowel Movements Output, Urine 600 1250 750 369 212 0599 Physical Exam: General Appearance: well developed/nourished, no apparent distress, intubated but arousable and responsive Head: atraumatic, normal appearance Ears, Nose, Throat: normal pharynx, normal ENT inspection Neck: supple, carotids normal bilaterally Respiratory: Bilateral rhonchi Cardiovascular: Irregular rhythm with intermittent ventricular ectopy, 1/6 systolic murmur Gastrointestinal: normal bowel sounds, soft, non-tender Extremities: normal inspection Current Medications: Current Medications Sig/Amadeo Start time Last Medication Dose Route Stop Time Status Admin Albuterol Sulfate 3 ML TID 03/10 2199 AC 03/13 INH 1303 Amoxicillin/ 875 MG Q12 03/12 1000 AC 03/13 Clavulanate Potassium PO 1142 Azithromycin 250 MG DAILY 03/11 1000 DC 03/12 PO 1623 Carvedilol 3.125 MG BID 03/10 2199 AC 03/12 PO 2139 Dextrose/Sodium 1,000 ML Q20H 03/11 1630 AC 03/13 Chloride IV 1143 Escitalopram Oxalate 10 MG DAILY 03/10 1030 AC 03/13 PO 1142 Furosemide 20 MG ONCE ONE 03/12 2000 DC 03/12 IV 03/12 Insulin Human Regular 0 Q6 03/11 1200 AC 03/13 SC 1142 Ipratropium [place] 2.5 ML TID 03/10 2200 AC 03/13 INH 1303 Lorazepam 50 MG Q24H 03/12 1245 AC 03/12 Dextrose/Water 500 ML IV 1316 Methylprednisolone 40 MG Q12H 03/10 1800 AC 03/13 IV 0548 Oxycodone/ 1 TAB Q6P PRN 03/10 1030 AC Acetaminophen PO Oxycodone/ 2 TAB Q6P PRN 03/10 1030 AC Acetaminophen PO Pantoprazole Sodium 40 MG Q5H 03/11 1615 AC 03/13 Sodium Chloride 100 ML IV 1025 Results Last 48 Hrs of Labs/Mics: Laboratory Tests 03/13/16 1400: CBC w Diff Pending, WBC Pending, RBC Pending, Hgb Pending, Hct Pending, MCV Pending, MCH Pending, RDW Pending, Plt Count Pending, MPV Pending, PUBS MCHC Pending 03/13/16 1146: pH 7.44, pCO2 36, pO2 85, HCO3 25, ABG O2 Sat (Measured) 95.0 L, Carboxyhemoglobin 0.4 L, O2 Concentration % 30, Respiration Rate 10, O2 Delivery Method VENT, Vent Mode VC-AC, Expiratory Pressure 5, Tidal Volume 500, Phlebotomy Draw Site RIGHT RADIAL 03/13/16 0905: pH 7.52 H, pCO2 28 L, pO2 76 L, HCO3 23, ABG O2 Sat (Measured) 94.0 L, Carboxyhemoglobin 0.3 L, O2 Concentration % 30, Temperature 98.1, Respiration Rate 14, O2 Delivery Method VENT, Vent Mode VC-AC, Expiratory Pressure 5, Tidal Volume 600, Phlebotomy Draw Site RIGHT RADIAL 03/13/16 0415: Anion Gap 9, Estimated GFR 37 L, Glucose 332 H, Calcium 8.2 L, Phosphorus 3.5 , Magnesium 2.3, Total Bilirubin 0.5, AST 15 L, ALT 37, Albumin 2.7 L, CBC w Diff MAN DIFF ORDERED, RBC 3.01 L, MCV 88.0, MCH 29.3, RDW 14.9 H, MPV 9.1, Gran % 86.8 H, Lymphocytes % 7.0 L, Monocytes % 6.1, Eosinophils % 0.1, Basophils % 0 L, Absolute Granulocytes 23.3 H, Segmented Neutrophils 83 H, Band Neutrophils 4, Absolute Lymphocytes 1.9, Lymphocytes 10 L, Monocytes 3, Absolute Monocytes 1.6 H, Absolute Eosinophils 0, Absolute Basophils 0, Platelet Estimate ADEQUATE, Polychromasia 1+, Anisocytosis 1+, PUBS MCHC 33.3 03/12/16 2345: CBC w Diff NO MAN DIFF REQ, RBC 3.07 L, MCV 86.9, MCH 29.4, RDW 14.5, MPV 9.1, Gran % 88.3 H, Lymphocytes % 6.1 L, Monocytes % 5.6, Eosinophils % 0, Basophils % 0 L, Absolute Granulocytes 23.9 H, Absolute Lymphocytes 1.7, Absolute Monocytes 1.5 H, Absolute Eosinophils 0, Absolute Basophils 0, PUBS MCHC 33.8 03/12/16 1330: CBC w Diff NO MAN DIFF REQ, RBC 2.62 L, MCV 88.7, MCH 29.5, RDW 14.3, MPV 9.3, Gran % 88.1 H, Lymphocytes % 6.2 L, Monocytes % 5.7, Eosinophils % 0, Basophils % 0 L, Absolute Granulocytes 22.6 H, Absolute Lymphocytes 1.6, Absolute Monocytes 1.5 H, Absolute Eosinophils 0, Absolute Basophils 0, PUBS MCHC 33.3 03/12/16 1305: Stool H. pylori Ag Cancelled 03/12/16 1245: pH 7.38, pCO2 43, pO2 87, HCO3 25, ABG O2 Sat (Measured) 95.0 L, P-50 (Temp Corrected) N, Carboxyhemoglobin 0.2 L, O2 Concentration % 30%, Respiration Rate 14, O2 Delivery Method VENT, Vent Mode AC, Expiratory Pressure 0, Tidal Volume 600, Pressure Support 0, Phlebotomy Draw Site LEFT RADIAL 03/12/16 0952: pH 7.43, pCO2 41, pO2 82, HCO3 27, ABG O2 Sat (Measured) 95.0 L, P-50 (Temp Corrected) N, Carboxyhemoglobin 0.5 L, O2 Concentration % 30%, Respiration Rate 24, O2 Delivery Method BIPAP, Vent Mode ST, Expiratory Pressure 6, Inspiratory Pressure 20, Phlebotomy Draw Site LEFT RADIAL 03/12/16 0505: Anion Gap 9, Estimated GFR 35 L, Glucose 309 H, Calcium 8.3 L, Phosphorus 3.4 , Magnesium 2.3, Total Bilirubin 0.4, AST 24, ALT 43, Albumin 2.9 L, PT 11.8, INR 1.13, APTT 25, CBC w Diff MAN DIFF ORDERED, RBC 2.85 L, MCV 88.6, MCH 29.9, RDW 13.9, MPV 9.0, Gran % 88.0 H, Lymphocytes % 5.3 L, Monocytes % 6.6, Eosinophils % 0.1, Basophils % 0 L, Absolute Granulocytes 25.1 H, Segmented Neutrophils 93 H, Band Neutrophils 1, Absolute Lymphocytes 1.5, Monocytes 6, Absolute Monocytes 1.9 H, Absolute Eosinophils 0, Absolute Basophils 0, Platelet Estimate ADEQUATE, Polychromasia 1+, Poikilocytosis 1+, Basophilic Stippling 1+, Ovalocytes 1+, Elliptocytes FEW, PUBS MCHC 33.8, Fld Total RBCs Counted 100 03/11/16 2215: CBC w Diff NO MAN DIFF REQ, RBC 3.10 L, MCV 88.3, MCH 29.6, RDW 14.0, MPV 8.8, Gran % 84.0 H, Lymphocytes % 5.1 L, Monocytes % 10.9 H, Eosinophils % 0, Basophils % 0 L, Absolute Granulocytes 23.2 H, Absolute Lymphocytes 1.4, Absolute Monocytes 3.0 H, Absolute Eosinophils 0, Absolute Basophils 0, PUBS MCHC 33.5 Assessment/Plan Assessment/Plan Assessment: 1. GI bleeding, pending endoscopy 2. History of coronary artery disease, history of primary colon infarction, cardiomyopathy with ejection fraction of 45% 3. History of ventricular ectopy, recent ectopy with multiform and monomorphic nonsustained VT 4. History of COPD on home oxygen. 5. Obesity hypoventilation syndrome 6. Obstructive sleep apnea on CPAP 7. History of prior stroke 8. Chronic renal insufficiency 9. Acute on chronic anemia 10. Hypertension 11. Hyperlipidemia 12. Diabetes Recommendations: -The patient tolerated the endoscopy without obvious issues and remains intubated but hemodynamically stable with no obvious cardiac issues postprocedure. -The patient had a recent echocardiogram showed a stable ejection fraction of 45 %. -The patient should be maintained on his regular medicines, including his beta blockers if possible. -Follow-up ECG unchanged. -For now, the patient remains off of his antiplatelet agents due to the GI findings at endoscopy. Tomorrow, we should obtain copies of the patient's most recent cardiac catheterization to document what interventions were performed if any. At that time, further plans for reinstitution of his antiplatelet medications will be entertained. Continue telemetry? Yes
[2016-03-13 15:49] LABS: ABSOLUTE BASOPHIL COUNT 0 /CUMM (0.0-0.2); ABSOLUTE EOSINOPHIL COUNT 0 /CUMM (0.0-0.7); ABSOLUTE GRANULOCYTE CT 22.3 /CUMM (1.4-6.5); ABSOLUTE LYMPH COUNT 1.5 /CUMM (1.2-3.4); ABSOLUTE MONOCYTE COUNT 1.3 /CUMM (0.10-0.60); BASOPHIL % 0 % (0.0-2.0); EOSINOPHIL % 0 % (0-5); GRANULOCYTE % 88.9 % (42.2-75.2); HEMATOCRIT 27.2 % (42-52); MEAN CORPUSCULAR HGB 29.2 PG (27.0-31.0); MEAN CORPUSCULAR HGB CONC 32.9 G/DL (33.0-37.0); MEAN CORPUSCULAR VOLUME 88.8 FL (80.0-94.0); PLATELET COUNT 220 /CUMM (130-400); RBC DISTRIBUTION WIDTH 14.9 % (11.5-14.5); RED BLOOD CELL CT 3.06 /CUMM (4.70-6.10)
[2016-03-13 16:00] VITALS: BP 110/52
[2016-03-14] VITALS: BP 120/60
[2016-03-14 05:54] LABS: ABSOLUTE BASOPHIL COUNT 0 /CUMM (0.0-0.2); ABSOLUTE EOSINOPHIL COUNT 0 /CUMM (0.0-0.7); ABSOLUTE GRANULOCYTE CT 24.1 /CUMM (1.4-6.5); ABSOLUTE LYMPH COUNT 1.2 /CUMM (1.2-3.4); ABSOLUTE MONOCYTE COUNT 1.2 /CUMM (0.10-0.60); BASOPHIL % 0 % (0.0-2.0); EOSINOPHIL % 0 % (0-5); GRANULOCYTE % 91.2 % (42.2-75.2); HEMATOCRIT 27.2 % (42-52); MEAN CORPUSCULAR HGB 29.7 PG (27.0-31.0); MEAN CORPUSCULAR HGB CONC 33.4 G/DL (33.0-37.0); PLATELET COUNT 202 /CUMM (130-400); RBC DISTRIBUTION WIDTH 14.4 % (11.5-14.5); RED BLOOD CELL CT 3.06 /CUMM (4.70-6.10); WHITE BLOOD CELL COUNT 26.4 /CUMM (4.8-10.8)
[2016-03-14 08:00] VITALS: BP 112/58
--- NOTE | 2016-03-14 08:25 | RADIOLOGY REPORT ---
EXAMINATION: XR PORTABLE CHEST CLINICAL INFORMATION: On mechanical ventilatory support. COMPARISON: Several prior chest x-rays, most recent of which is dated 03/13/2016. CT scan of the chest dated 06/26/2015. TECHNIQUE: AP semierect portable view of the chest was obtained. FINDINGS: Endotracheal tube tip approximately 3.7 cm above the melina. Enteric tube is seen coursing into the abdomen with tip not included. The patient is status post median sternotomy and CABG surgery. Cardiomediastinal silhouette is enlarged. Again seen is opacity in the left lung base, which in correlation with the CT scan is likely related to prominent epicardiac fat pad with associated mild subsegmental atelectasis. Overall, low lung volumes are seen. No focal consolidation or evidence of pulmonary edema or pneumothorax is seen. Bony structures are unremarkable. IMPRESSION: 1. Endotracheal tube tip 3.7 cm above the melina. 2. Enteric tube coursing into the abdomen with the tip not visualized. 3. Prominent left epicardial fat pad and associated mild left basilar subsegmental atelectasis.
--- NOTE | 2016-03-14 08:57 | NUR ---
SPEECH THERAPY: PT REMAINS INTUBATED/VENTILATED S/P ENDOSCOPY WHICH REVEALED MULTIPLE ULCERS. DEVELOPED RESPIRATORY ALKALOSIS. PT IS NPO. PLEASE RE-CONSULT WHEN ABLE TO PARTICIPATE IN PO TRIALS.
--- NOTE | 2016-03-14 09:48 | PN- CRCU ---
Subjective HPI/Critical Care Issues: pt seen and examined on mechanical ventilation 30% fio2 ros unobtainable secondary to intubated state Objective Current Medications: Current Medications Sig/Amadeo Start time Last Medication Dose Route Stop Time Status Admin Albuterol Sulfate 3 ML TID 03/10 220 AC 03/14 INH 0759 Amoxicillin/ 875 MG Q12 03/12 1000 AC 03/14 Clavulanate Potassium PO 0938 Carvedilol 3.125 MG BID 03/10 2200 AC 03/12 PO 2139 Dextrose/Sodium 1,000 ML Q20H 03/11 1630 AC 03/13 Chloride IV 1817 Escitalopram Oxalate 10 MG DAILY 03/10 1030 AC 03/14 PO 0938 Insulin Human Regular 0 Q6 03/11 1200 AC 03/14 SC 0607 Ipratropium [place] 2.5 ML TID 03/10 2199 AC 03/14 INH 0758 Lorazepam 1 MG ONCE ONE 03/14 0200 DC 03/14 IV 03/14 0201 0500 Lorazepam 50 MG Q24H 03/12 1245 AC 03/12 Dextrose/Water 500 ML IV 1316 Methylprednisolone 40 MG Q12H 03/10 1800 AC 03/14 IV 0607 Oxycodone/ 1 TAB Q6P PRN 03/10 1030 AC Acetaminophen PO Oxycodone/ 2 TAB Q6P PRN 03/10 1030 AC Acetaminophen PO Pantoprazole Sodium 40 MG BID 03/13 2200 AC 03/14 IV 0938 Pantoprazole Sodium 40 MG Q5H 03/11 1615 DC 03/13 Sodium Chloride 100 ML IV 1527 Vital Signs & I&O Last 24 Hrs of Vitals and I&O: Vital Signs Date Time Temp Pulse Resp B/P Pulse O2 O2 Flow FiO2 Ox Delivery Rate 03/14 0806 30 03/14 0619 30 03/14 0400 96 Ventilator 30% 03/14 0339 30 03/14 0127 30 03/14 0000 96 Ventilator 30% 03/14 0000 96.7 48 21 120/60 96 Ventilator 30% 03/13 2205 30 03/13 1939 96 Ventilator 30% 03/13 1855 30 03/13 1600 30 03/13 1600 97.5 51 12 110/52 97 Ventilator 30% 03/13 1600 96 Ventilator 30% 03/13 1304 30 03/13 1200 97 Ventilator 30% 03/13 1026 50 113/50 03/13 1016 30 Intake & Output 03/14 1600 03/14 0800 03/14 0000 Intake Total 389 505 Output Total 450 595 Balance -61 -90 Intake, IV 389 445 Intake, Other 60 Number 0 Bowel Movements Output, Urine 450 595 Exam Other Physical Findings: gen/heent - intubated, ett cvs s1, s2 lungs rare rhonchi, transmitted abd soft bs+ ext without edema Results Last 24 Hrs of Lab Results: Laboratory Tests 03/14/16 0520: Anion Gap 7, Estimated GFR 46 L, Glucose 272 H, Calcium 8.2 L, Phosphorus 4.7 H, Magnesium 2.6 H, Total Bilirubin 0.5, AST 12 L, ALT 33, Albumin 2.7 L, CBC w Diff MAN DIFF ORDERED, RBC 3.06 L, MCV 89.0, MCH 29.7, RDW 14.4, MPV 9.0, Gran % 91.2 H, Lymphocytes % 4.4 L, Monocytes % 4.4, Eosinophils % 0, Basophils % 0 L, Absolute Granulocytes 24.1 H, Segmented Neutrophils 90 H, Band Neutrophils 2, Absolute Lymphocytes 1.2, Lymphocytes 8 L, Absolute Monocytes 1.2 H, Absolute Eosinophils 0, Absolute Basophils 0, Nucleated RBCs 1 H, Platelet Estimate ADEQUATE, Polychromasia 1+, Poikilocytosis 1+, Basophilic Stippling SLIGHT, Ovalocytes 1+, Elliptocytes FEW, PUBS MCHC 33.4, Fld Total RBCs Counted 100 03/13/16 1400: CBC w Diff NO MAN DIFF REQ, RBC 3.06 L, MCV 88.8, MCH 29.2, RDW 14.9 H, MPV 9.0, Gran % 88.9 H, Lymphocytes % 5.8 L, Monocytes % 5.3, Eosinophils % 0, Basophils % 0 L, Absolute Granulocytes 22.3 H, Absolute Lymphocytes 1.5, Absolute Monocytes 1.3 H, Absolute Eosinophils 0, Absolute Basophils 0, PUBS MCHC 32.9 L 03/13/16 1146: pH 7.44, pCO2 36, pO2 85, HCO3 25, ABG O2 Sat (Measured) 95.0 L, Carboxyhemoglobin 0.4 L, O2 Concentration % 30, Respiration Rate 10, O2 Delivery Method VENT, Vent Mode VC-AC, Expiratory Pressure 5, Tidal Volume 500, Phlebotomy Draw Site RIGHT RADIAL Impression/Plan Impression/Plan Impression/Plan: Impression 76-year-old man with hypercarbic respiratory failure. History of congestive heart disease. Now with acute blood loss anemia, GI source. Hemoglobin 6.7 with symptoms of dizziness. Respiratory failure improving. Plan - GI input - NPO, hold a/c - cont augmentin - continue Solu-Medrol 40 mg IV every 12. - plan for cpap trial - Ins and outs and diuresis as needed to keep him that even to negative fluid balance - Aspiration precautions - TRC nebs TTS 40 min
--- NOTE | 2016-03-14 12:58 | NUR ---
Patient is drowsey but easily arousable- more responsive than yesterday's assessment- ativan gtt has been off since 0745 on 03/13- he can move all extremities but not to command. Soft bilateral wrist restraints in place. SB on tele monitor. HR= 45-50's with pvc's and bigeminy. SBP: 110-140's. Remains intubated with a #8 to the left at 23cm- lungs clear and diminished at the bases. He is currently on a c-pap trial with a PSV of 6- minimal clear thin secretions noted when suctioning to the ETT. Abdomen is soft and non tender with + bowel sounds. OGT in place and is clamped. Remains NPO- Telles was removed at 0945 this am and a [place] catheter is in place- patient due to void. Skin intact with no edema noted. D5 1/2 NS infusing at 50mls/hr. ABG's to be drawn around 1330- Dr. Mills in to see patient at this time. Will continue to closely monitor patient.
--- NOTE | 2016-03-14 13:09 | PN- Resident CRCU ---
Subjective HPI/CRCU Issues: Pt in ICU for: Acute blood loss anemia, respiratory failure. Acute overnight events: Patient had one episode of agitation for which he received 0.5 of IV Ativan. Subsequently he calmed down no other events. On telemetric 3 he was noted to be bradycardic. Currently he is intubated sedated. Cannot get review of systems from him. He does open his eyes if prompted. However, he does not communicate much more than that. Objective Vital Signs & I&O Last 8 Hrs of Vitals and I&O: Vital Signs Date Time Temp Pulse Resp B/P Pulse O2 O2 Flow FiO2 Ox Delivery Rate 03/14 1200 96 Ventilator 30% 03/14 1028 30 03/14 0806 30 03/14 0800 96.3 49 13 112/58 96 Ventilator 30% 03/14 0800 96 Ventilator 30% 03/14 0619 30 03/14 0400 96 Ventilator 30% 03/14 0339 30 03/14 0127 30 03/14 0000 96 Ventilator 30% 03/14 0000 96.7 48 21 120/60 96 Ventilator 30% 03/13 2205 30 03/13 1939 96 Ventilator 30% 03/13 1855 30 03/13 1600 30 03/13 1600 97.5 51 12 110/52 97 Ventilator 30% 03/13 1600 96 Ventilator 30% 03/13 1304 30 Intake & Output 03/14 1600 03/14 0800 03/14 0000 Intake Total 389 505 Output Total 450 595 Balance -61 -90 Intake, IV 389 445 Intake, Other 60 Number 0 Bowel Movements Output, Urine 450 595 Exam General Appearance: well developed/nourished, sedated, intubated Head: atraumatic, normal appearance Ears, Nose, Throat: normal pharynx Neck: supple Respiratory: no respiratory distress, INTUBATED Cardiovascular: bradycardia Gastrointestinal: soft, non-tender Extremities: no edema Skin: intact Weaning Schedule Start Time: 1020 Minute Volume: 7.7 Resp Rate: 26 Vt: 300 Heart Rate: 68 Nutrition Nutrition: NPO Current Medications: Current Medications Sig/Amadeo Start time Last Medication Dose Route Stop Time Status Admin Albuterol Sulfate 3 ML TID 03/10 2199 AC 03/14 INH 0759 Amoxicillin/ 875 MG Q12 03/12 1000 AC 03/14 Clavulanate Potassium PO 0938 Carvedilol 3.125 MG BID 03/10 2199 AC 03/12 PO 2139 Dextrose/Sodium 1,000 ML Q20H 03/11 1630 AC 03/13 Chloride IV 1817 Escitalopram Oxalate 10 MG DAILY 03/10 1030 AC 03/14 PO 0938 Insulin Human Regular 0 Q6 03/11 1200 AC 03/14 SC 1232 Ipratropium [place] 2.5 ML TID 03/10 2200 AC 03/14 INH 0758 Lorazepam 1 MG ONCE ONE 03/14 0200 DC 03/14 IV 03/14 0201 0500 Lorazepam 50 MG Q24H 03/12 1245 AC 03/12 Dextrose/Water 500 ML IV 1316 Methylprednisolone 40 MG Q12H 03/10 1800 AC 03/14 IV 0607 Oxycodone/ 1 TAB Q6P PRN 03/10 1030 AC Acetaminophen PO Oxycodone/ 2 TAB Q6P PRN 03/10 1030 AC Acetaminophen PO Pantoprazole Sodium 40 MG BID 03/13 2200 03/14 IV 0938 Pantoprazole Sodium 40 MG Q5H 03/11 1615 DC 03/13 Sodium Chloride 100 ML IV 1527 Impression/Plan Impression/Problem List Impression: This is 76-year-old male with past medical history significant for COPD on 2 L home O2, JUANITO on nocturnal CPAP, hypertension, hyperlipidemia, type 2 diabetes mellitus, CAD with NH status post CABG, CVA, CK D stage III, recently admitted for observation 2/2 lethargy at [facility] and discharged to [facility] at [place]. He now presents to chief complaint of lethargy. Upon ED workup he was found to have acute on chronic hypercarbic and hypoxemic respiratory failure secondary to JUANITO and COPD exacerbation. He was placed on BiPAP, IV azithromycin and steroids. Initially did not improve, was transferred to ICU for further aggressive management and closer monitoring. Of note, patient had troponins of 0.33 in ED, which were then trended down. PLAN Respiratory: Patient is currently intubated. This is day 3. Plan is to extubate him soon. Wean off trial underway; however his mental status is still below his baseline. He is on ativan for sedation. * DC all inhalers * If worsened check ABG * By mouth azithromycin 250 mg daily * Continue IV Solu-Medrol 40 mg every 12 hours * Stop theophylline * Aspiration precautions ID: Patient growing greater than 100,000 units of enterococcus in his urine. Sensitive to ampicillin and Macrobid and vancomycin. He has been afebrile in hospital. WBC is 26.4 with two bands today. Initial UA showed no white count or LE. We will obtain second UA today. Possible that this is colonization and that elevated white count likely secondary to steroids. * Cont' Augmentin 875 by mouth twice a day. This is day 3. * Remove Telles catheter * Monitor patient clinically Cardiovascular: Patient has significant history of type 2 diabetes mellitus, hypertension, and NH status post CABG. Echo suggested EF of 40. During this admission patient had demand-related troponin, highest reading at 0.33, subsequently trended downward. No EKG changes. Goal is to keep H&H at 8 and 24. Today at 9.1. * Thank you cardiology consult * Hold cardiac medications including aspirin, clopidogrel, beta benigno as of . Spoke with Dr. Negrete's staff regarding if pt has stents. The front office associate personnel stated that there were no records that indicated that pt had any hx of stents in the last 7 yrs of records but they would confirm and call back. * Continue I's and O's * Cont' D5 1/2 NS at 50 mL per hour. We will monitor and ensure his fluid balance remains roughly equal. * Consider restarting his home diuretics * cholesterol panel showed total cholesterol 113, LDL 51, HDL 40. Hematology: Pt has gotten a total of 3u pRBC txfusion during this admission for acute blood loss. Goal is H/H 8 & 24. * Con't monitor H/H and transfuse as necessary GI: Pt went for EGD on 03/12 in AM for an episode of GI bleed and subsequent decrease in H/H . EGD showed non-bleeding duodenal ulcers. * Discontinue aspirin and Plavix for now * NPO * DC heparin for DVT prophylaxis, start Alps. * PPI 40 IVQ12 * Continue to guaiac all stool Musculoskeletal: Stable from this perspective will continue to monitor Nephro: Patient has CK D stage III with creatinine at 1.6 (at baseline) today. We will avoid nephrotoxic medications and continue to monitor Endocrine: Patient has history of diabetes mellitus. A1c measured during this admission at 6.3. T4 within normal limits TSH low. A.m. cortisol 14; Normal limits. * Outpatient follow-up on TSH * Currently nothing by mouth * Currently on nothing by mouth insulin regimen * FS Problem List: 1. Duodenal ulcer disease 2. Melena 3. HFrEF (heart failure with reduced ejection fraction) 4. Acute on chronic respiratory failure with hypoxia and hypercapnia 5. CAD (coronary artery disease) Pain Ratin Tomorrow's Labs & Rationales: icu cbc Plan DVT/Prophylaxis: pharmacological
--- NOTE | 2016-03-14 14:54 | NUR ---
Patient turned back to assist control after a 3 hour cpap trial. Vent settings now AC: 10/500/30/5. While on c-pap trial patient did have some apneic episodes and did drop his oxygen saturation down to 86% when tachypneic- tidal volumes ranging from 180-210 at this time. Respiratory was notified. Patient remains drowsey but arousable- pt to trial again this evening but no plan for extubation today. Patients tammy Dhillon updated on POC* Will continue to closely monitor patient.
[2016-03-14 16:00] VITALS: BP 124/60
--- NOTE | 2016-03-14 18:56 | PN- Cardiology ---
Subjective Subjective: Evidence of weekend reviewed. Remains intubated after his EGD, but more alert this evening. Occasional ventricular ectopy noted on monitoring. Objective Vital Signs and I&Os Vital Signs Date Time Temp Pulse Resp B/P Pulse O2 O2 Flow FiO2 Ox Delivery Rate 03/14 1633 30 03/14 1600 98 Ventilator 30% 03/14 1600 98.3 60 14 124/60 98 Ventilator 30% 03/14 1410 30 03/14 1200 96 Ventilator 30% 03/14 1028 30 03/14 0806 30 03/14 0800 96.3 49 13 112/58 96 Ventilator 30% 03/14 0800 96 Ventilator 30% 03/14 0619 30 03/14 0400 96 Ventilator 30% 03/14 0339 30 03/14 0127 30 03/14 0000 96 Ventilator 30% 03/14 0000 96.7 48 21 120/60 96 Ventilator 30% 03/13 2205 30 03/13 1939 96 Ventilator 30% 03/13 1855 30 Intake & Output 03/14 1600 03/14 0800 03/14 0000 03/13 1600 03/13 0800 03/13 0000 Intake Total 470 389 505 605 720 820 Output Total 140 450 181 860 2364 750 Balance 330 -61 -90 5 -530 70 Intake, Blood 350 Product Intake, IV 410 389 445 605 720 470 Intake, Other 60 60 Number 0 Bowel Movements Output, Urine 140 450 819 959 8074 750 Patient 239 lb Weight Physical Exam: Intubated morbidly obese male who is responding to questioning appropriately. Neck: No JVD, no bruits. Lungs: Decreased breath sounds bilaterally with occasional rhonchi. Heart: S1, S2 with grade 2/6 systolic murmur. Abdomen: Soft, nontender, positive bowel sounds. Extremities: No edema. Assessment/Plan Assessment/Plan Mr. David is an elderly morbidly obese male with a history of former heavy tobacco use, COPD on home oxygen with multiple previous exacerbations, obesity hyperventilation syndrome, obstructive sleep apnea on CPAP, previous stroke without residual deficits, chronic kidney disease, chronic anemia, hypertension, dyslipidemia, diabetes mellitus, and coronary artery disease S/P previous HI's by ECG/left ventricular systolic dysfunction with previous heart failure s/p CABG 2010 at [facility] who returned with lethargy and shortness of breath and who is again found to be having an acute exacerbation of his COPD with a modest troponin elevation. There is no suggestion in the record that he had any recent complaints of chest discomfort, his electrocardiograms have not shown any acute changes, and his troponins are only modestly elevated suggesting that the troponin I elevation is on the basis of demand ischemia (acute illness, left ventricular hypertrophy, etc.), acute respiratory failure, chronic kidney disease, etc. Clinically continues to slowly improve. Recommendations: * Continue ICU admission, follow-up CBC and continue to transfuse to keep hemoglobin at or above 8 g/dl given his known coronary artery disease. * Discuss with GI when they think antiplatelet therapy can be reinitiated. * Remains intubated and follow-up on pulmonary recommendations. * Echocardiogram revealed improved overall left ventricular function. * Continue to check all stools for occult blood. * Continue on beta benigno * Continue to hold diuretic, angiotensin receptor benigno, mineralocorticoid ( aldosterone) receptor antagonist for the short-term. * Deep venous thrombosis prophylaxis. Continue telemetry? Yes
[2016-03-15] VITALS: BP 130/64
[2016-03-15 05:12] LABS: ABSOLUTE BASOPHIL COUNT 0 /CUMM (0.0-0.2); ABSOLUTE EOSINOPHIL COUNT 0 /CUMM (0.0-0.7); ABSOLUTE GRANULOCYTE CT 22.9 /CUMM (1.4-6.5); ABSOLUTE MONOCYTE COUNT 1.1 /CUMM (0.10-0.60); BASOPHIL % 0.1 % (0.0-2.0); EOSINOPHIL % 0 % (0-5); GRANULOCYTE % 91.5 % (42.2-75.2); HEMATOCRIT 26.8 % (42-52); MEAN CORPUSCULAR HGB 29.4 PG (27.0-31.0); MEAN CORPUSCULAR HGB CONC 32.9 G/DL (33.0-37.0); MEAN CORPUSCULAR VOLUME 89.2 FL (80.0-94.0); MEAN PLATELET VOLUME 9.1 FL (7.4-10.4); PLATELET COUNT 191 /CUMM (130-400); RBC DISTRIBUTION WIDTH 14.8 % (11.5-14.5); RED BLOOD CELL CT 3.01 /CUMM (4.70-6.10)
[2016-03-15 05:13] LABS: PT 11.5 SEC (9.4-12.5)
[2016-03-15 08:00] VITALS: BP 148/68
--- NOTE | 2016-03-15 10:06 | PN- CRCU ---
Subjective HPI/Critical Care Issues: Pt seen and examined wbc 25 afebrile 30% fio2 ros unobtainable secondary to intubated state Objective Current Medications: Current Medications Sig/Amadeo Start time Last Medication Dose Route Stop Time Status Admin Albuterol Sulfate 3 ML TID 03/10 2200 AC 03/15 INH 0807 Amoxicillin/ 875 MG Q12 03/12 1000 AC 03/15 Clavulanate Potassium PO 0941 Carvedilol 3.125 MG BID 03/10 2200 AC 03/12 PO 2139 Dextrose/Sodium 1,000 ML Q20H 03/14 1315 AC 03/14 Chloride IV 1450 Dextrose/Sodium 1,000 ML Q20H 03/11 1630 DC 03/13 Chloride IV 1817 Escitalopram Oxalate 10 MG DAILY 03/10 1030 AC 03/15 PO 0941 Insulin Human Regular 0 Q6 03/11 1200 AC 03/15 SC 0653 Ipratropium [place] 2.5 ML TID 03/10 2200 AC 03/15 INH 0808 Lorazepam 50 MG Q24H 03/12 1245 AC 03/12 Dextrose/Water 500 ML IV 1316 Methylprednisolone 40 MG Q12H 03/10 1800 AC 03/15 IV 0653 Oxycodone/ 1 TAB Q6P PRN 03/10 1030 AC Acetaminophen PO Oxycodone/ 2 TAB Q6P PRN 03/10 1030 AC Acetaminophen PO Pantoprazole Sodium 40 MG BID 03/13 2200 AC 03/15 IV 0941 Vital Signs & I&O Last 24 Hrs of Vitals and I&O: Vital Signs Date Time Temp Pulse Resp B/P Pulse O2 O2 Flow FiO2 Ox Delivery Rate 03/15 0811 30 03/15 0800 97.1 46 13 148/68 96 Ventilator 30% 03/15 0800 96 Ventilator 30% 03/15 0555 30 03/15 0400 97 Ventilator 30% 03/15 0258 30 03/15 0031 30 03/15 0000 30 Ventilator 30% 03/15 0000 97.8 52 14 130/64 95 Ventilator 30% 03/14 2238 30 03/14 2209 54 18 137/62 03/14 2000 94 Ventilator 30% 03/14 1900 30 03/14 1633 30 03/14 1600 98 Ventilator 30% 03/14 1600 98.3 60 14 124/60 98 Ventilator 30% 03/14 1410 30 03/14 1200 96 Ventilator 30% 03/14 1028 30 Intake & Output 03/15 1600 03/15 0800 03/15 0000 Intake Total 413 472 Output Total 250 200 Balance 163 272 Intake, IV 413 412 Intake, Oral 0 60 Number 0 Bowel Movements Output, Urine 250 200 Patient 224 lb Weight Exam Other Physical Findings: gen/heent - intubated, ett cvs s1, s2 lungs rare rhonchi, transmitted abd soft bs+ ext without edema Results Last 24 Hrs of Lab Results: Laboratory Tests 03/15/16 0415: Anion Gap 6, Estimated GFR 49 L, Glucose 225 H, Calcium 8.0 L, Phosphorus 4.9 H, Magnesium 2.8 H, Total Bilirubin 0.6, AST 18, ALT 42, Albumin 2.8 L, PT 11.5, INR 1.10, CBC w Diff NO MAN DIFF REQ, RBC 3.01 L, MCV 89.2, MCH 29.4, RDW 14.8 H, MPV 9.1, Gran % 91.5 H, Lymphocytes % 3.9 L, Monocytes % 4.5, Eosinophils % 0, Basophils % 0.1, Absolute Granulocytes 22.9 H, Absolute Lymphocytes 1.0 L, Absolute Monocytes 1.1 H, Absolute Eosinophils 0, Absolute Basophils 0, PUBS MCHC 32.9 L Impression/Plan Impression/Plan Impression/Plan: Impression 76-year-old man with hypercarbic respiratory failure. History of congestive heart disease. Now with acute blood loss anemia, GI source. Hemoglobin 6.7 with symptoms of dizziness. Respiratory failure improving. Plan - dc augmentin - unasyn until improvement in leukocytosis - NPO, hold a/c - continue Solu-Medrol 30 mg IV every 12. - plan for cpap trial - Ins and outs and diuresis as needed to keep him that even to negative fluid balance - Aspiration precautions - TRC nebs TTS 35 min
--- NOTE | 2016-03-15 10:48 | NUR ---
Patient is drowsey but easily arousable to verbal stimuli. Able to move all extremties and can squeeze his hands when prompted. History of a CVA and pt is slow to respond at baseline. Soft bilateral wrist restraints in place. SB on tele monitor with pac's and frequent pvc's. SBP: 120-140's. po coreg was held for bradycardia. Remains intubated with a #8 to the left at 23cm, he is currently on a c-pap trial with a psv of 6. O2 sats raning from 94-96%. Lungs are clear and there are scant ontiveros secretions noted to the ETT. Apneic periods while trialing however pt has a history of sleep apnea. OGT in place and is clamped at this time. Abdomen is soft non tender with + bowel sounds. remains npo at this time. + flatus. [place] catheter in place draining clear yellow urine. Skin is intact with no areas of pressure injury. No edema is noted. Pt shows no s/s of pain at this time. D5 1/2 nS infusing at 50mls/hr. vitals stable. ABG's to be drawn after cpap trial- ? extubation this afternoon. Will continue to closely monitor patient.
--- NOTE | 2016-03-15 12:28 | NUR ---
Patient extubated at 1210 and placed on a 35% aerosol mask. O2 sats stable at 91-94%. He was given IV laisx prior to extubation. he is awake and alert- following commands and can answer questions appropriately. Vitals stable. Will continue to closely monitor patient.
--- NOTE | 2016-03-15 12:54 | PN- Resident CRCU ---
Subjective HPI/CRCU Issues: Pt is ICU for: acute hypercrbic respiratory failure; GI bleed; troponins; currently intubated Pt much more responsive today. He is able to follow commands. Gave thumbs up when we asked if he wanted to be extubated. No active complaints. Vitals stable. Hr 50-60, BP 146-112/49-66 on the ventilator. Objective Vital Signs & I&O Last 8 Hrs of Vitals and I&O: Intake & Output 03/15 1600 03/15 0800 03/15 0000 Intake Total 413 472 Output Total 250 200 Balance 163 272 Intake, IV 413 412 Intake, Oral 0 60 Number 0 Bowel Movements Output, Urine 250 200 Patient 101.69 kg Weight Vital Signs Date Time Temp Pulse Resp B/P Pulse O2 O2 Flow FiO2 Ox Delivery Rate 03/15 1200 98 Ventilator 30% 03/15 0811 30 03/15 0800 97.1 46 13 148/68 96 Ventilator 30% 03/15 0800 96 Ventilator 30% 03/15 0555 30 03/15 0400 97 Ventilator 30% 03/15 0258 30 03/15 0031 30 03/15 0000 30 Ventilator 30% 03/15 0000 97.8 52 14 130/64 95 Ventilator 30% 03/14 2238 30 03/14 2209 54 18 137/62 03/14 2000 94 Ventilator 30% 03/14 1900 30 03/14 1633 30 03/14 1600 98 Ventilator 30% 03/14 1600 98.3 60 14 124/60 98 Ventilator 30% 03/14 1410 30 Intake & Output 03/15 1600 03/15 0800 03/15 0000 Intake Total 413 472 Output Total 250 200 Balance 163 272 Intake, IV 413 412 Intake, Oral 0 60 Number 0 Bowel Movements Output, Urine 250 200 Patient 101.69 kg Weight Exam General Appearance: well developed/nourished, no apparent distress, alert, awake , intubated Head: atraumatic, normal appearance Ears, Nose, Throat: normal ENT inspection Neck: normal inspection, supple Respiratory: normal breath sounds, chest non-tender Cardiovascular: regular rate/rhythm Gastrointestinal: soft, non-tender Extremities: normal inspection, no edema Cranial Nerves: normal hearing, normal speech Weaning Parameters NIF: 23 Minute Volume: 5.7 Resp rate: 24 Vt: 268 Heart Rate: 53 Weaning Schedule Start Time: 1015 Minute Volume: 5.3 Resp Rate: 21 Vt: 260 Heart Rate: 55 End Time: 1205 Minute Volume: 6.1 Resp Rate: 23 Vt: 300 Heart Rate: 56 Current Medications: Current Medications Sig/Amadeo Start time Last Medication Dose Route Stop Time Status Admin Albuterol Sulfate 3 ML TID 03/10 2200 AC 03/15 INH 1220 Amoxicillin/ 875 MG Q12 03/12 1000 AC 03/15 Clavulanate Potassium PO 0941 Carvedilol 3.125 MG BID 03/10 2200 AC 03/12 PO 2139 Dextrose/Sodium 1,000 ML Q20H 03/14 1315 AC 03/15 Chloride IV 1057 Dextrose/Sodium 1,000 ML Q20H 03/11 1630 DC 03/13 Chloride IV 1817 Escitalopram Oxalate 10 MG DAILY 03/10 1030 AC 03/15 PO 0941 Furosemide 40 MG ONCE ONE 03/15 1215 DC 03/15 IV 03/15 1216 1208 Insulin Human Regular 0 Q6 03/11 1200 AC 03/15 SC 1139 Ipratropium [place] 2.5 ML TID 03/10 2200 AC 03/15 INH 0807 Lorazepam 50 MG Q24H 03/12 1245 AC 03/12 Dextrose/Water 500 ML IV 1316 Methylprednisolone 40 MG Q12H 03/10 1800 AC 03/15 IV 0653 Oxycodone/ 1 TAB Q6P PRN 03/10 1030 AC Acetaminophen PO Oxycodone/ 2 TAB Q6P PRN 03/10 1030 AC Acetaminophen PO Pantoprazole Sodium 40 MG BID 03/13 2200 AC 03/15 IV 0941 Impression/Plan Impression/Problem List Impression: This is 76-year-old male with past medical history significant for COPD on 2 L home O2, JUANITO on nocturnal CPAP, hypertension, hyperlipidemia, type 2 diabetes mellitus, CAD with [place] status post CABG, CVA, CK D stage III, recently admitted for observation 2/ lethargy at [facility] and discharged to [facility] at [place]. He now presents to chief complaint of lethargy. Upon ED workup he was found to have acute on chronic hypercarbic and hypoxemic respiratory failure secondary to JUANITO and COPD exacerbation. He was placed on BiPAP, IV azithromycin and steroids. Initially did not improve, was transferred to ICU for further aggressive management and closer monitoring. Of note, patient had troponins of 0.33 in ED, which were then trended down. PLAN Respiratory: Patient was extubated today. Tolerated procedure well. He is satting on 3L O2. * DC all inhalers * If worsened check ABG * By mouth azithromycin 250 mg daily * Continue IV Solu-Medrol 40 mg every 12 hours * Stop theophylline * Aspiration precautions ID: Patient growing greater than 100,000 units of enterococcus in his urine. Sensitive to ampicillin and Macrobid and vancomycin. He has been afebrile in hospital. Initial UA showed no white count or LE. Second UA negative for signs of infection but showed 4+ uric acid crystals. Looks unlikely urine source of infection. However wbc count high. Concern for infxn in this recently extubated gentleman. * Pt was on Augmentin 875 by mouth twice a day (4 days)--> will switch to Unasyn until white count trends down * Pt on condom cath * Monitor patient clinically Cardiovascular: Patient has significant history of type 2 diabetes mellitus, hypertension, and [place] status post CABG. Echo suggested EF of 40. During this admission patient had demand-related troponin, highest reading at 0.33, subsequently trended downward. No EKG changes. Goal is to keep H&H at 8 and 24. Today at 9.1. * Thank you cardiology consult * Hold cardiac medications including aspirin, clopidogrel, beta benigno as of . Spoke with Dr. Negrete's staff regarding if pt has stents. They stated that he had no stents per their records. * Continue I's and O's * Cont' D5 1/2 NS at 50 mL per hour--> until he tolerates diet. Will d/c fluids today. * Consider restarting his home diuretics * cholesterol panel showed total cholesterol 113, LDL 51, HDL 40. Hematology: Pt has gotten a total of 3u pRBC txfusion during this admission for acute blood loss. Goal is H/H 8 & 24. * Con't monitor H/H and transfuse as necessary GI: Pt went for EGD on 03/12 in AM for an episode of GI bleed and subsequent decrease in H/H . EGD showed non-bleeding duodenal ulcers. * Discontinue aspirin and Plavix for now * NPO * DC heparin for DVT prophylaxis, start Alps. * PPI 40 IVQ12 * Continue to guaiac all stool Musculoskeletal: Stable from this perspective will continue to monitor Nephro: Patient has CK D stage III with creatinine at 1.6 (at baseline) today. We will avoid nephrotoxic medications and continue to monitor Endocrine: Patient has history of diabetes mellitus. A1c measured during this admission at 6.3. T4 within normal limits TSH low. A.m. cortisol 14; Normal limits. * Outpatient follow-up on TSH * Currently nothing by mouth * Currently on nothing by mouth insulin regimen * FS Problem List: 1. COPD 2. Diabetes mellitus 3. hypercarbic respiratory failur Pain Ratin Tomorrow's Labs & Rationales: icu cbc Plan DVT/Prophylaxis: pharmacological
[2016-03-15 16:00] VITALS: BP 130/60
[2016-03-16] VITALS: BP 110/50
--- NOTE | 2016-03-16 06:00 | NUR ---
PATIENT VERBALLY RESPONSIVE,FOLLOWS COMMANDS. BIPAP ON AT 30%.NO DYSPNEA NOTED O2 SAT=98%.MONITOR SINUS RHYTHM TO SINUS BRADYCARDIA.BP 134/59.[place] CATHETER REPLACED.
[2016-03-16 06:16] LABS: ABSOLUTE BASOPHIL COUNT 0 /CUMM (0.0-0.2); ABSOLUTE EOSINOPHIL COUNT 0 /CUMM (0.0-0.7); ABSOLUTE GRANULOCYTE CT 22.9 /CUMM (1.4-6.5); ABSOLUTE LYMPH COUNT 0.8 /CUMM (1.2-3.4); ABSOLUTE MONOCYTE COUNT 1.2 /CUMM (0.10-0.60); BASOPHIL % 0 % (0.0-2.0); EOSINOPHIL % 0.1 % (0-5); GRANULOCYTE % 91.7 % (42.2-75.2); HEMATOCRIT 30.2 % (42-52); MEAN CORPUSCULAR HGB 29.5 PG (27.0-31.0); MEAN CORPUSCULAR HGB CONC 32.7 G/DL (33.0-37.0); MEAN PLATELET VOLUME 9.3 FL (7.4-10.4); RBC DISTRIBUTION WIDTH 14.7 % (11.5-14.5); RED BLOOD CELL CT 3.35 /CUMM (4.70-6.10)
[2016-03-16 06:28] LABS: PLATELET COUNT 192 /CUMM (130-400)
[2016-03-16 08:00] VITALS: BP 130/66
--- NOTE | 2016-03-16 10:41 | PN- Resident CRCU ---
Subjective HPI/CRCU Issues: Patient is ICU for: Hypercarbic respiratory failure. Patient was extubated yesterday. He is now tolerating a pured diet and is back to his 2 L nasal cannula baseline. He does require BiPAP at night, however this AM when I saw him he was satting well on 2 L O2. No acute overnight events. No complaints. MAXIMUM TEMPERATURE 98.8, heart rate between 57 and 80, respiratory rate between 12 and 24, blood pressure between 131-166/55-66. In for admission 11,340, alt 10,570. Objective Vital Signs & I&O Last 8 Hrs of Vitals and I&O: Vital Signs Date Time Temp Pulse Resp B/P Pulse O2 O2 Flow FiO2 Ox Delivery Rate 03/16 0827 100 Nasal 2.0L Cannula 03/16 0801 54 98 03/16 0800 95.7 51 24 130/66 98 BIPAP 30% 03/16 0800 98 BIPAP 30% 03/16 0525 47 96 03/16 0400 97 BIPAP 30% 03/16 0338 56 98 03/16 0024 59 96 03/16 0000 96.2 60 18 110/50 96 BIPAP 30% 03/16 0000 96 BIPAP 30% 03/15 2139 65 97 03/15 2000 97 Nasal 2.0L Cannula 03/15 1600 95 Nasal 2.0L Cannula 03/15 1600 98.0 94 22 130/60 95 Nasal 2.0L Cannula 03/15 1351 97 Nasal 3.0L Cannula 03/15 1200 98 Ventilator 30% Intake & Output 03/16 1600 03/16 0800 03/16 0000 Intake Total 421 829 Output Total 100 1450 Balance 321 -621 Intake, IV 421 469 Intake, Oral 360 Output, Urine 100 1450 Patient 100.244 kg Weight Exam General Appearance: well developed/nourished, no apparent distress, alert, awake , comfortable Head: atraumatic, normal appearance Ears, Nose, Throat: normal pharynx, normal ENT inspection Neck: normal inspection Respiratory: normal breath sounds, chest non-tender, no respiratory distress, decreased breath sounds Cardiovascular: regular rate/rhythm Gastrointestinal: soft, non-tender Extremities: normal inspection Weaning Parameters NIF: 23 Minute Volume: 5.7 Resp rate: 24 Vt: 268 Heart Rate: 53 Weaning Schedule Start Time: 1015 Minute Volume: 5.3 Resp Rate: 21 Vt: 260 Heart Rate: 55 End Time: 1205 Minute Volume: 6.1 Resp Rate: 23 Vt: 300 Heart Rate: 56 Current Medications: Current Medications Sig/Amadeo Start time Last Medication Dose Route Stop Time Status Admin Albuterol Sulfate 3 ML TID 03/10 2199 AC 03/16 INH 0803 Amoxicillin/ 875 MG Q12 03/12 1000 DC 03/15 Clavulanate Potassium PO 0941 Ampicillin Sodium/ 1,500 MG Q6 03/15 1800 AC 03/16 Sulbactam Sodium IV 0618 Sodium Chloride 100 ML Aspirin 81 MG DAILY 03/16 1000 AC PO Carvedilol 3.125 MG BID 03/10 2200 AC 03/12 PO 2139 Dextrose/Sodium 1,000 ML Q20H 03/14 1315 DC 03/16 Chloride IV 0620 Escitalopram Oxalate 10 MG DAILY 03/10 1030 AC 03/15 PO 0941 Furosemide 40 MG ONCE ONE 03/15 1215 DC 03/15 IV 03/15 1216 1208 Insulin Human Regular 0 TIDAC/HS 03/16 0800 AC 03/16 SC 0917 Insulin Human Regular 0 Q6 03/11 1200 DC 03/16 SC 0624 Ipratropium [place] 2.5 ML TID 03/10 2200 AC 03/16 INH 0803 Lorazepam 50 MG Q24H 03/12 1245 DC 03/12 Dextrose/Water 500 ML IV 1316 Methylprednisolone 40 MG Q12H 03/10 1800 AC 03/16 IV 0616 Oxycodone/ 1 TAB Q6P PRN 03/10 1030 AC Acetaminophen PO Oxycodone/ 2 TAB Q6P PRN 03/10 1030 AC Acetaminophen PO Pantoprazole Sodium 40 MG BID 03/13 220 AC 03/15 IV 2225 Impression/Plan Impression/Problem List Impression: This is 76-year-old male with past medical history significant for COPD on 2 L home O2, JUANITO on nocturnal CPAP, hypertension, hyperlipidemia, type 2 diabetes mellitus, CAD with [place] status post CABG, CVA, CK D stage III, recently admitted for observation 2/2 lethargy at [facility] and discharged to [facility] at [place]. He now presents to chief complaint of lethargy. Upon ED workup he was found to have acute on chronic hypercarbic and hypoxemic respiratory failure secondary to JUANITO and COPD exacerbation. He was placed on BiPAP, IV azithromycin and steroids. Initially did not improve, was transferred to ICU for further aggressive management and closer monitoring. Of note, patient had troponins of 0.33 in ED, which were then trended down. PLAN Respiratory: Patient was extubated yesterday. Tolerated procedure well.Back to his two liter nasal cannula baseline. He requires BiPAP at night. * DC all inhalers * If worsened check ABG * By mouth azithromycin 250 mg daily * Discontinue IV Solu-Medrol 40 mg every 12 and change patient to 30 mg by mouth prednisone. * Stop theophylline * Aspiration precautions * BiPAP at night ID: Patient growing greater than 100,000 units of enterococcus in his urine. Sensitive to ampicillin and Macrobid and vancomycin. He has been afebrile in hospital. Initial UA showed no white count or LE. Second UA negative for signs of infection but showed 4+ uric acid crystals. Looks unlikely urine source of infection. However wbc count high. Concern for infxn in this recently extubated gentleman. We'll get chest x-ray this a.m. white count this a.m. at 25. * Pt was on Augmentin 875 by mouth twice a day (4 days)--> will switch to Unasyn until white count trends down. This is Unasyn day 2. * Pt on condom cath * Monitor patient clinically * Chest x-ray this a.m. Cardiovascular: Patient has significant history of type 2 diabetes mellitus, hypertension, and [place] status post CABG. Echo suggested EF of 40. During this admission patient had demand-related troponin, highest reading at 0.33, subsequently trended downward. No EKG changes. Goal is to keep H&H at 8 and 24. Today at 9.9. * Thank you cardiology consult * Hold cardiac medications including aspirin, clopidogrel, beta benigno as of . Spoke with Dr. Negrete's staff on 03/15/2016 regarding if pt has stents. They stated that he had no stents per their records. As such, we will start ASA 81 mg. He will follow-up with pet care worker on outpatient basis for resumption of Clopidogrel. * Continue I's and O's * We will discontinue fluids as patient is now tolerating a pured diet. * Currently holding home diuretics per cardiology recommendation. * cholesterol panel showed total cholesterol 113, LDL 51, HDL 40. Hematology: Stable. Pt has gotten a total of 3u pRBC txfusion during this admission for acute blood loss. Goal is H/H 8 & 24. * Con't monitor H/H and transfuse as necessary GI: Pt went for EGD on 03/12 in AM for an episode of GI bleed and subsequent decrease in H/H . EGD showed non-bleeding duodenal ulcers. * Resume aspirin. Hold Plavix. * We'll resume heparin subcutaneous for DVT prophylaxis. Continue Alps * PPI 40 IVQ12 * Continue to guaiac all stool Musculoskeletal: Stable from this perspective will continue to monitor Nephro: Patient has CK D stage III with creatinine at 1.4 (at baseline) today. We will avoid nephrotoxic medications and continue to monitor Endocrine: Patient has history of diabetes mellitus. A1c measured during this admission at 6.3. T4 within normal limits TSH low. A.m. cortisol 14; Normal limits. * Outpatient follow-up on TSH * Diabetic diet * Resume sliding scale * FS Problem List: 1. COPD 2. hypercarbic respiratory failur 3. Elevated troponin Pain Ratin Tomorrow's Labs & Rationales: none Plan DVT/Prophylaxis: pharmacological
--- NOTE | 2016-03-16 11:24 | PN- CRCU ---
Subjective HPI/Critical Care Issues: pt seen and examined feeling significantly better extubated vitals stable no n/v/d/c no dyspnea at rest wbc remains 25 Objective Current Medications: Current Medications Sig/Amadeo Start time Last Medication Dose Route Stop Time Status Admin Albuterol Sulfate 3 ML TID 03/10 2200 AC 03/16 INH 0803 Amoxicillin/ 875 MG Q12 03/12 1000 DC 03/15 Clavulanate Potassium PO 0941 Ampicillin Sodium/ 1,500 MG Q6 03/15 1800 AC 03/16 Sulbactam Sodium IV 0618 Sodium Chloride 100 ML Aspirin 81 MG DAILY 03/16 1000 AC 03/16 PO 1116 Carvedilol 3.125 MG BID 03/10 2200 AC 03/16 PO 1116 Dextrose/Sodium 1,000 ML Q20H 03/14 1315 DC 03/16 Chloride IV 0620 Escitalopram Oxalate 10 MG DAILY 03/10 1030 AC 03/16 PO 1116 Furosemide 40 MG ONCE ONE 03/15 1215 DC 03/15 IV 03/15 1216 1208 Heparin Sodium 5,000 UNIT Q8 03/16 1400 AC (Porcine) SC Insulin Human Regular 0 TIDAC/HS 03/16 0800 AC 03/16 SC 0917 Insulin Human Regular 0 Q6 03/11 1200 DC 03/16 SC 0624 Ipratropium [place] 2.5 ML TID 03/10 2200 AC 03/16 INH 0803 Lorazepam 50 MG Q24H 03/12 1245 DC 03/12 Dextrose/Water 500 ML IV 1316 Methylprednisolone 40 MG Q12H 03/10 1800 DC 03/16 IV 0616 Oxycodone/ 1 TAB Q6P PRN 03/10 1030 AC Acetaminophen PO Oxycodone/ 2 TAB Q6P PRN 03/10 1030 AC Acetaminophen PO Pantoprazole Sodium 40 MG BID 03/13 2200 DC 03/15 IV 2225 Prednisone 10 MG DAILY 03/21 1000 AC PO 03/22 1001 Prednisone 20 MG DAILY 03/19 1000 AC PO 03/20 1001 Prednisone 30 MG DAILY 03/17 1000 AC PO 03/18 1001 Vital Signs & I&O Last 24 Hrs of Vitals and I&O: Vital Signs Date Time Temp Pulse Resp B/P Pulse O2 O2 Flow FiO2 Ox Delivery Rate 03/16 1116 74 125/60 03/16 0827 100 Nasal 2.0L Cannula 03/16 0801 54 98 03/16 0800 95.7 51 24 130/66 98 BIPAP 30% 03/16 0800 98 BIPAP 30% 03/16 0525 47 96 03/16 0400 97 BIPAP 30% 03/16 0338 56 98 03/16 0024 59 96 03/16 0000 96.2 60 18 110/50 96 BIPAP 30% 03/16 0000 96 BIPAP 30% 03/15 2139 65 97 03/15 2000 97 Nasal 2.0L Cannula 03/15 1600 95 Nasal 2.0L Cannula 03/15 1600 98.0 94 22 130/60 95 Nasal 2.0L Cannula 03/15 1351 97 Nasal 3.0L Cannula 03/15 1200 98 Ventilator 30% Intake & Output 03/16 0800 03/16 0000 Intake Total 421 829 Output Total 100 1450 Balance 321 -621 Intake, IV 421 469 Intake, Oral 360 Output, Urine 100 1450 Patient 221 lb Weight Exam Other Physical Findings: gen - extubated, awake and alert heent - poor dentition cvs s1, s2 lungs rare rhonchi, transmitted abd soft bs+ ext without edema Results Last 24 Hrs of Lab Results: Laboratory Tests 03/16/16 0530: Anion Gap 7, Estimated GFR 49 L, Glucose 277 H, Calcium 8.3 L, Phosphorus 5.3 H, Magnesium 2.7 H, Total Bilirubin 0.6, AST 21, ALT 57, Albumin 2.9 L, CBC w Diff NO MAN DIFF REQ, RBC 3.35 L, MCV 90.0, MCH 29.5, RDW 14.7 H, MPV 9.3, Gran % 91.7 H, Lymphocytes % 3.2 L, Monocytes % 5.0, Eosinophils % 0.1, Basophils % 0 L, Absolute Granulocytes 22.9 H, Absolute Lymphocytes 0.8 L, Absolute Monocytes 1.2 H, Absolute Eosinophils 0, Absolute Basophils 0, PUBS MCHC 32.7 L 03/15/16 1125: pH 7.41, pCO2 40, pO2 66 L, HCO3 25, ABG O2 Sat (Measured) 91.0 L, Carboxyhemoglobin 0.1 L, O2 Concentration % 30%, Respiration Rate 21, O2 Delivery Method VENT, Vent Mode CPAP, Expiratory Pressure 5, Pressure Support 6, Phlebotomy Draw Site LEFT RADIAL Impression/Plan Impression/Plan Impression/Plan: Impression 76-year-old man with hypercarbic respiratory failure. History of congestive heart disease. Resolved acute blood loss anemia. Resolved respiratory failure. Plan - cont unasyn - d/c solumedrol, begin prednisone taper starting at 30mg - Ins and outs and diuresis as needed to keep him that even to negative fluid balance - Aspiration precautions - TRC nebs TTS 35 min
--- NOTE | 2016-03-16 12:00 | NUR ---
Patient is alert and oriented x's 3, able to follow commands and responds appropriately. SB-NSR on tele monitor, HR= 60-70's while awake and in the 50's when sleeping. SBP: 110-140's and pt denies chest pain. Currently on 2L nc, lungs clear and diminished at the bases. On 30% bi-pap at night and O2 sats ranging from 94-96%. Abdomen is soft and non tender with + bowel sounds. He was started on a diabetic diet and has been tolerating po well. [place] catheter in place and he is voiding clear yellow urine. Skin is intact with no areas of pressure injury noted. IVF have been d/c on IV unasyn every 6 hours. Patient son Alejo updated on POC. Vitals stable and pt denies pain. Will continue to closely monitor patient.
--- NOTE | 2016-03-16 14:03 | RADIOLOGY REPORT ---
EXAMINATION: XR PORTABLE CHEST CLINICAL INFORMATION: Shortness of breath. White count. Evaluate for pneumonia. COMPARISON: Chest x-ray dated 03/14/2016 and multiple prior chest x-rays. CT scan of the chest dated 06/26/2015. TECHNIQUE: AP semiupright portable view of the chest was obtained. FINDINGS: The patient is status post median sternotomy and CABG surgery. Cardiomediastinal silhouette is enlarged, unchanged. Low lung volumes are seen with persistent chronic elevation of the left hemidiaphragm and prominent epicardiac fat pad. Superimposed parenchymal opacity or small pleural effusion in the left lung base is difficult to exclude on a portable film. There is likely some linear subsegmental atelectasis medially in the right lung base. Central vascular congestion is seen without overt pulmonary edema. Multilevel mild vertebral spondylosis is seen in the thoracic spine. IMPRESSION: Unchanged appearance of the chest with stable opacity in the left lung base seen, likely due to persistent chronic elevation of the left hemidiaphragm and prominent epicardiac fat pad. There may be associated lung parenchymal opacity or effusion in the left lung base, poorly assessed on portable exam.
[2016-03-16 16:00] VITALS: BP 120/64
--- NOTE | 2016-03-16 20:01 | PN- Cardiology ---
Subjective Subjective: No complaints. Denies any chest discomfort, palpitations, shortness of breath, etc. Objective Vital Signs and I&Os Vital Signs Date Time Temp Pulse Resp B/P Pulse O2 O2 Flow FiO2 Ox Delivery Rate 03/16 1719 97 Nasal 2.0L Cannula 03/16 1600 98.1 77 20 120/64 96 Nasal 2.0L Cannula 03/16 1600 96 Nasal 2.0L Cannula 03/16 1200 98 Nasal 3.0L Cannula 03/16 1116 74 125/60 03/16 0827 100 Nasal 2.0L Cannula 03/16 0801 54 98 03/16 0800 95.7 51 24 130/66 98 BIPAP 30% 03/16 0800 98 BIPAP 30% 03/16 0525 47 96 03/16 0400 97 BIPAP 30% 03/16 0338 56 98 03/16 0024 59 96 03/16 0000 96.2 60 18 110/50 96 BIPAP 30% 03/16 0000 96 BIPAP 30% 03/15 2139 65 97 03/15 1999 97 Nasal 2.0L Cannula Intake & Output 03/16 1600 03/16 0800 03/16 0000 03/15 1600 03/15 0800 03/15 0000 Intake Total 720 421 829 435 413 472 Output Total 261 491 2573 1250 250 200 Balance 45 321 -621 -815 163 272 Intake, IV 120 421 469 375 413 412 Intake, Oral 600 360 0 60 Intake, Other 60 Number 0 Bowel Movements Output, Urine 846 424 8683 1250 250 200 Patient 221 lb 224 lb Weight Physical Exam: HEENT: Normocephalic, atraumatic, EOMI, moist mucous membranes. Neck: No JVD, no bruits. Lungs: Decreased breath sounds bilaterally with a few crackles at the bases. Heart: S1, S2 with grade 2/6 systolic murmur. Abdomen: Soft, nontender, positive bowel sounds. Extremities: No edema. Current Medications: Current Medications Sig/Amadeo Start time Last Medication Dose Route Stop Time Status Admin Albuterol Sulfate 3 ML TID 03/10 2199 AC 03/16 INH 1716 Ampicillin Sodium/ 1,500 MG Q6 03/15 1800 AC 03/16 Sulbactam Sodium IV 1829 Sodium Chloride 100 ML Aspirin 81 MG DAILY 03/16 1000 AC 03/16 PO 1116 Carvedilol 3.125 MG BID 03/10 2200 AC 03/16 PO 1116 Dextrose/Sodium 1,000 ML Q20H 03/14 1315 DC 03/16 Chloride IV 0620 Docusate Sodium 100 MG DAILY PRN 03/16 1500 AC PO Escitalopram Oxalate 10 MG DAILY 03/10 1030 AC 03/16 PO 1116 Heparin Sodium 5,000 UNIT Q8 03/16 1400 AC 03/16 (Porcine) SC 1419 Insulin Human Regular 0 TIDAC/HS 03/16 0800 AC 03/16 SC 1643 Insulin Human Regular 0 Q6 03/11 1200 DC 03/16 SC 0624 Ipratropium [place] 2.5 ML TID 03/10 2200 AC 03/16 INH 1718 Methylprednisolone 40 MG Q12H 03/10 1800 DC 03/16 IV 0616 Omeprazole 40 MG DAILY AC 03/16 1210 AC 03/16 PO 1642 Oxycodone/ 1 TAB Q6P PRN 03/10 1030 AC Acetaminophen PO Oxycodone/ 2 TAB Q6P PRN 03/10 1030 AC Acetaminophen PO Pantoprazole Sodium 40 MG BID 03/13 220 DC 03/15 IV 2225 Prednisone 10 MG DAILY 03/21 1000 AC PO 03/22 1001 Prednisone 20 MG DAILY 03/19 1000 AC PO 03/20 1001 Prednisone 30 MG DAILY 03/17 1000 AC PO 03/18 1001 Senna 187 MG AT BEDTIME PRN 03/16 1500 AC 03/16 PO 1642 Results Last 48 Hrs of Labs/Mics: Laboratory Tests 03/16/16 0530: Anion Gap 7, Estimated GFR 49 L, Glucose 277 H, Calcium 8.3 L, Phosphorus 5.3 H, Magnesium 2.7 H, Total Bilirubin 0.6, AST 21, ALT 57, Albumin 2.9 L, CBC w Diff NO MAN DIFF REQ, RBC 3.35 L, MCV 90.0, MCH 29.5, RDW 14.7 H, MPV 9.3, Gran % 91.7 H, Lymphocytes % 3.2 L, Monocytes % 5.0, Eosinophils % 0.1, Basophils % 0 L, Absolute Granulocytes 22.9 H, Absolute Lymphocytes 0.8 L, Absolute Monocytes 1.2 H, Absolute Eosinophils 0, Absolute Basophils 0, PUBS MCHC 32.7 L 03/15/16 1125: pH 7.41, pCO2 40, pO2 66 L, HCO3 25, ABG O2 Sat (Measured) 91.0 L, Carboxyhemoglobin 0.1 L, O2 Concentration % 30%, Respiration Rate 21, O2 Delivery Method VENT, Vent Mode CPAP, Expiratory Pressure 5, Pressure Support 6, Phlebotomy Draw Site LEFT RADIAL 03/15/16 0415: Anion Gap 6, Estimated GFR 49 L, Glucose 225 H, Calcium 8.0 L, Phosphorus 4.9 H, Magnesium 2.8 H, Total Bilirubin 0.6, AST 18, ALT 42, Albumin 2.8 L, PT 11.5, INR 1.10, CBC w Diff NO MAN DIFF REQ, RBC 3.01 L, MCV 89.2, MCH 29.4, RDW 14.8 H, MPV 9.1, Gran % 91.5 H, Lymphocytes % 3.9 L, Monocytes % 4.5, Eosinophils % 0, Basophils % 0.1, Absolute Granulocytes 22.9 H, Absolute Lymphocytes 1.0 L, Absolute Monocytes 1.1 H, Absolute Eosinophils 0, Absolute Basophils 0, PUBS MCHC 32.9 L Recent Imaging Studies: CXR (03/16/2016) Unchanged appearance of the chest with stable opacity in the left lung base seen, likely due to persistent chronic elevation of the left hemidiaphragm and prominent epicardiac fat pad. There may be associated lung parenchymal opacity or effusion in the left lung base, poorly assessed on portable exam. Assessment/Plan Assessment/Plan Mr. David is an elderly morbidly obese male with a history of former heavy tobacco use, COPD on home oxygen with multiple previous exacerbations, obesity hyperventilation syndrome, obstructive sleep apnea on CPAP, previous stroke without residual deficits, chronic kidney disease, chronic anemia, hypertension, dyslipidemia, diabetes mellitus, and coronary artery disease S/P previous NJ's by ECG/left ventricular systolic dysfunction with previous heart failure s/p CABG 2010 at [facility] who returned with lethargy and shortness of breath and who is again found to be having an acute exacerbation of his COPD with a modest troponin elevation. There is no suggestion in the record that he had any recent complaints of chest discomfort, his electrocardiograms have not shown any acute changes, and his troponins are only modestly elevated suggesting that the troponin I elevation is on the basis of demand ischemia (acute illness, left ventricular hypertrophy, etc.), acute respiratory failure, chronic kidney disease, etc. Clinically continues to slowly improve. Recommendations: * Continue ICU admission, follow-up CBC and continue to transfuse to keep hemoglobin at or above 8 g/dl given his known coronary artery disease. * Total respiratory care, BiPAP, antimicrobial therapy, steroids, etc. * Note WBC count unchanged. * Echocardiogram revealed improved overall left ventricular function. * Back on EC ASA 81 mg daily. * Continue to check all stools for occult blood. * Continue on beta benigno * Continue to hold diuretic, angiotensin receptor benigno, mineralocorticoid ( aldosterone) receptor antagonist for the short-term. * Deep venous thrombosis prophylaxis. Continue telemetry? Yes
--- NOTE | 2016-03-16 20:04 | PN- Cardiology ---
Subjective Subjective: Saw Mr. Mat David on the evening of 03/15/2016. At that time he was resting and without complaints. He additionally denied any chest discomfort, palpitations, shortness of breath, etc. Objective Vital Signs and I&Os Vital Signs Date Time Temp Pulse Resp B/P Pulse O2 O2 Flow FiO2 Ox Delivery Rate 03/16 1719 97 Nasal 2.0L Cannula 03/16 1600 98.1 77 20 120/64 96 Nasal 2.0L Cannula 03/16 1600 96 Nasal 2.0L Cannula 03/16 1200 98 Nasal 3.0L Cannula 03/16 1116 74 125/60 03/16 0827 100 Nasal 2.0L Cannula 03/16 0801 54 98 03/16 0800 95.7 51 24 130/66 98 BIPAP 30% 03/16 0800 98 BIPAP 30% 03/16 0525 47 96 03/16 0400 97 BIPAP 30% 03/16 0338 56 98 03/16 0024 59 96 03/16 0000 96.2 60 18 110/50 96 BIPAP 30% 03/16 0000 96 BIPAP 30% 03/15 2139 65 97 Intake & Output 03/16 1600 03/16 0800 03/16 0000 03/15 1600 03/15 0800 03/15 0000 Intake Total 720 421 829 435 413 472 Output Total 587 561 0590 1250 250 200 Balance 45 321 -621 -815 163 272 Intake, IV 120 421 469 375 413 412 Intake, Oral 600 360 0 60 Intake, Other 60 Number 0 Bowel Movements Output, Urine 070 692 7076 1250 250 200 Patient 221 lb 224 lb Weight Physical Exam: HEENT: Normocephalic, atraumatic, EOMI, moist mucous membranes. Neck: No JVD, no bruits. Lungs: Decreased breath sounds bilaterally with a few crackles at the bases. Heart: S1, S2 with grade 2/6 systolic murmur. Abdomen: Soft, nontender, positive bowel sounds. Extremities: No edema. Assessment/Plan Assessment/Plan Mr. David is an elderly morbidly obese male with a history of former heavy tobacco use, COPD on home oxygen with multiple previous exacerbations, obesity hyperventilation syndrome, obstructive sleep apnea on CPAP, previous stroke without residual deficits, chronic kidney disease, chronic anemia, hypertension, dyslipidemia, diabetes mellitus, and coronary artery disease S/P previous NH's by ECG/left ventricular systolic dysfunction with previous heart failure s/p CABG 2010 at [facility] who returned with lethargy and shortness of breath and who is again found to be having an acute exacerbation of his COPD with a modest troponin elevation. There is no suggestion in the record that he had any recent complaints of chest discomfort, his electrocardiograms have not shown any acute changes, and his troponins are only modestly elevated suggesting that the troponin I elevation is on the basis of demand ischemia (acute illness, left ventricular hypertrophy, etc.), acute respiratory failure, chronic kidney disease, etc. He additionally had significant GI bleeding requiring transfusion of PRBCs and is s/p EGD with prophylactic transient intubation and clipping of duodenal ulcerations on 03/12/2016. Enteric-coated ASA 81 mg was restarted and his hemoglobin/hematocrit are being followed up closely. Fortunately, he has remained hemodynamic stable and without complaints. Recommendations: * Continue ICU admission, follow-up CBC and continue to transfuse to keep hemoglobin at or above 8 g/dl given his known coronary artery disease. * Total respiratory care, BiPAP, antimicrobial therapy, steroids, etc. * Note WBC count unchanged. * Echocardiogram revealed improved overall left ventricular function. * Back on EC ASA 81 mg daily. * Continue to check all stools for occult blood. * Continue on beta benigno * Continue to hold diuretic, angiotensin receptor benigno, mineralocorticoid ( aldosterone) receptor antagonist for the short-term. * Deep venous thrombosis prophylaxis. Continue telemetry? Yes
[2016-03-17] VITALS: BP 108/68
[2016-03-17 08:00] VITALS: BP 118/74
[2016-03-17 09:27] LABS: ABSOLUTE BASOPHIL COUNT 0 /CUMM (0.0-0.2); ABSOLUTE EOSINOPHIL COUNT 0.2 /CUMM (0.0-0.7); ABSOLUTE LYMPH COUNT 2.4 /CUMM (1.2-3.4); ABSOLUTE MONOCYTE COUNT 1.9 /CUMM (0.10-0.60); BASOPHIL % 0.2 % (0.0-2.0); EOSINOPHIL % 0.7 % (0-5); MEAN CORPUSCULAR HGB 30.3 PG (27.0-31.0); MEAN CORPUSCULAR VOLUME 89.2 FL (80.0-94.0); MEAN PLATELET VOLUME 10.6 FL (7.4-10.4); PLATELET COUNT 172 /CUMM (130-400); RBC DISTRIBUTION WIDTH 14.7 % (11.5-14.5); WHITE BLOOD CELL COUNT 21.5 /CUMM (4.8-10.8)
[2016-03-17 09:36] LABS: RED BLOOD CELL CT 2.45 /CUMM (4.70-6.10)
[2016-03-17 09:38] LABS: HEMATOCRIT 21.9 % (42-52)
--- NOTE | 2016-03-17 09:57 | PN- CRCU ---
Subjective HPI/Critical Care Issues: pt seen and examined comfortable hgb 7.4 this am wbc improved to 21.5 no n/v/d/c dyspnea with exertion Objective Current Medications: Current Medications Sig/Amadeo Start time Last Medication Dose Route Stop Time Status Admin Albuterol Sulfate 3 ML TID 03/10 2200 AC 03/17 INH 0755 Ampicillin Sodium/ 1,500 MG Q6 03/15 1800 AC 03/17 Sulbactam Sodium IV 0544 Sodium Chloride 100 ML Aspirin 81 MG DAILY 03/16 1000 AC 03/16 PO 1116 Bisacodyl 10 MG ONCE ONE 03/17 0845 DC DC 03/17 0846 Carvedilol 3.125 MG BID 03/10 2200 AC 03/16 PO 2204 Docusate Sodium 100 MG DAILY PRN 03/16 1500 AC PO Escitalopram Oxalate 10 MG DAILY 03/10 1030 AC 03/16 PO 1116 Heparin Sodium 5,000 UNIT Q8 03/16 1400 AC 03/17 (Porcine) SC 0546 Insulin Human Regular 0 TIDAC/HS 03/16 0800 AC 03/17 SC 0812 Ipratropium [place] 2.5 ML TID 03/10 2200 AC 03/17 INH 0755 Methylprednisolone 40 MG Q12H 03/10 1800 DC 03/16 IV 0616 Omeprazole 40 MG DAILY AC 03/16 1210 AC 03/17 PO 0549 Oxycodone/ 1 TAB Q6P PRN 03/10 1030 AC Acetaminophen PO Oxycodone/ 2 TAB Q6P PRN 03/10 1030 AC Acetaminophen PO Pantoprazole Sodium 40 MG BID 03/13 2200 DC 03/15 IV 2225 Prednisone 10 MG DAILY 03/21 1000 AC PO 03/22 1001 Prednisone 20 MG DAILY 03/19 1000 AC PO 03/20 1001 Prednisone 30 MG DAILY 03/17 1000 AC PO 03/18 1001 Senna 187 MG AT BEDTIME PRN 03/16 1500 AC 03/16 PO 1642 Vital Signs & I&O Last 24 Hrs of Vitals and I&O: Vital Signs Date Time Temp Pulse Resp B/P Pulse O2 O2 Flow FiO2 Ox Delivery Rate 03/17 08 97.2 81 20 118/74 96 Nasal 2.0L Cannula 03/17 0800 96 Nasal 2.0L Cannula 03/17 0538 83 98 03/17 0400 99 BIPAP 30% 03/17 0320 85 98 03/17 0027 83 98 03/17 0000 98 BIPAP 30% 03/17 0000 98.2 82 24 108/68 98 BIPAP 30% 03/16 2204 90 24 106/67 03/16 2118 88 99 03/16 2000 97 Nasal 2.0L Cannula 03/16 1719 97 Nasal 2.0L Cannula 03/16 1600 98.1 77 20 120/64 96 Nasal 2.0L Cannula 03/16 1600 96 Nasal 2.0L Cannula 03/16 1200 98 Nasal 3.0L Cannula 03/16 1116 74 125/60 Intake & Output 03/17 1600 03/17 0800 03/17 0000 Intake Total 1040 680 Output Total 200 Balance 840 680 Intake, IV 240 120 Intake, Oral 800 560 Output, Urine 200 Patient 226 lb Weight Exam Other Physical Findings: gen - awake and alert heent - poor dentition cvs s1, s2 lungs rare rhonchi, transmitted abd soft bs+ ext without edema Results Last 24 Hrs of Lab Results: Laboratory Tests 03/17/16 0745: Anion Gap 5, Estimated GFR 37 L, Glucose 254 H, Calcium 7.6 L, Phosphorus 4.0 , Magnesium 2.6 H, Total Bilirubin 0.4, AST 18, ALT 69, Albumin 2.5 L, CBC w Diff Pending, RBC 2.45 L, MCV 89.2, MCH 30.3, RDW 14.7 H, MPV 10.6 H, Gran % 79.0 H, Lymphocytes % 11.2 L, Monocytes % 8.9, Eosinophils % 0.7, Basophils % 0.2, Absolute Granulocytes 17.0 H, Absolute Lymphocytes 2.4, Absolute Monocytes 1.9 H, Absolute Eosinophils 0.2, Absolute Basophils 0, PUBS MCHC 34.0 03/17/16 0500: Anion Gap 7, Estimated GFR 39 L, Glucose 282 H, Calcium 7.5 L, Phosphorus 3.5 , Magnesium 2.5 H, Total Bilirubin 0.4, AST 21, ALT 68, Albumin 2.3 L Impression/Plan Impression/Plan Impression/Plan: Impression 76-year-old man with hypercarbic respiratory failure. History of congestive heart disease. Resolved acute blood loss anemia. Resolved respiratory failure. Plan - cont unasyn until leukocytosis improved - f/u cbc in 4 hrs and alert GI regarding drop in hgb - prednisone taper - Ins and outs and diuresis as needed to keep him that even to negative fluid balance - Aspiration precautions - TRC nebs TTS 35 min
[2016-03-17 11:20] LABS: ABSOLUTE BASOPHIL COUNT 0 /CUMM (0.0-0.2); ABSOLUTE EOSINOPHIL COUNT 0.1 /CUMM (0.0-0.7); ABSOLUTE GRANULOCYTE CT 16.3 /CUMM (1.4-6.5); ABSOLUTE LYMPH COUNT 2.4 /CUMM (1.2-3.4); ABSOLUTE MONOCYTE COUNT 1.9 /CUMM (0.10-0.60); BASOPHIL % 0.1 % (0.0-2.0); EOSINOPHIL % 0.7 % (0-5); GRANULOCYTE % 78.7 % (42.2-75.2); MEAN CORPUSCULAR HGB 29.5 PG (27.0-31.0); MEAN CORPUSCULAR HGB CONC 33.1 G/DL (33.0-37.0); MEAN CORPUSCULAR VOLUME 89.1 FL (80.0-94.0); MEAN PLATELET VOLUME 9.5 FL (7.4-10.4); PLATELET COUNT 186 /CUMM (130-400); RBC DISTRIBUTION WIDTH 14.8 % (11.5-14.5); RED BLOOD CELL CT 2.58 /CUMM (4.70-6.10); WHITE BLOOD CELL COUNT 20.7 /CUMM (4.8-10.8)
--- NOTE | 2016-03-17 12:00 | NUR ---
Patient is awake, alert and oriented x's 3, able to follow commands and respond approp. NSR on tele monitor- HR= 80's. SBP 100-120's manually and readling slightly lower with the autocuff. On 2L nc, lungs clear and diminished at the bases. O2 sats 94-96%- on 30% bi-pap at night. Abdomen is distended and soft non tender with + bowel sounds. A suppository was given early this morning and patient did have a large BM that was black and guiac positive. Dr. Stern notified- ASA was held this morning and SC heparin was d/c. Gi to be notified. He is INC of urine. No areas of pressure injury- no edema is noted. He currently denies pain and vitals are currently stable. CBC redrawn earlier this morning and pt to receive 1 unit of prbc. Pts son Alejo was updated on POC. Will continue to closely monitor patient.
[2016-03-17 16:00] VITALS: BP 112/64
--- NOTE | 2016-03-17 16:44 | PN- Resident CRCU ---
Subjective HPI/CRCU Issues: Overnight patient's H&H went from 9.9-7.7. He had several dark tarry stools. Guaiac positive. He also had a 7 beat run of tachycardia. Several PVCs. He denies any shortness of breath or chest pain. Will transfuse him 1 unit of packed red blood cell and follow-up with [facility]. We will obtain repeat CBC. Patient denied any acute complaints. Objective Vital Signs & I&O Last 8 Hrs of Vitals and I&O: Intake & Output 03/17 1600 Intake Total 712 Output Total Balance 712 Intake, Blood 112 Product Intake, IV 120 Intake, Oral 480 Number 2 Bowel Movements Exam General Appearance: well developed/nourished, alert, awake, comfortable Head: atraumatic, normal appearance Ears, Nose, Throat: normal pharynx Neck: normal inspection Respiratory: chest non-tender, no respiratory distress, decreased breath sounds, on 2 l nc Cardiovascular: regular rate/rhythm Gastrointestinal: soft, non-tender Weaning Parameters NIF: 23 Minute Volume: 5.7 Resp rate: 24 Vt: 268 Heart Rate: 53 Weaning Schedule Start Time: 1015 Minute Volume: 5.3 Resp Rate: 21 Vt: 260 Heart Rate: 55 End Time: 1205 Minute Volume: 6.1 Resp Rate: 23 Vt: 300 Heart Rate: 56 Nutrition Nutrition: P.O. diet Current Medications: Current Medications Sig/Amadeo Start time Last Medication Dose Route Stop Time Status Admin Albuterol Sulfate 3 ML TID 03/10 2200 AC 03/17 INH 1329 Ampicillin Sodium/ 1,500 MG Q6 03/15 1800 AC 03/17 Sulbactam Sodium IV 1205 Sodium Chloride 100 ML Aspirin 81 MG DAILY 03/16 1000 DC 03/16 PO 1116 Bisacodyl 10 MG ONCE ONE 03/17 0845 DC 03/17 VT 03/17 0846 0930 Carvedilol 3.125 MG BID 03/10 2200 AC 03/17 PO 1012 Docusate Sodium 100 MG DAILY PRN 03/16 1500 AC PO Escitalopram Oxalate 10 MG DAILY 03/10 1030 AC 03/17 PO 1011 Furosemide 40 MG ONE ONE 03/17 1400 CAN PO 03/17 1401 Furosemide 20 MG ONCE ONE 03/17 1215 DC IV 03/17 1216 Heparin Sodium 5,000 UNIT Q8 03/16 1400 DC 03/17 (Porcine) SC 0546 Insulin Human Regular 0 TIDAC/HS 03/16 0800 AC 03/17 SC 1204 Ipratropium [place] 2.5 ML TID 03/10 2200 AC 03/17 INH 1329 Omeprazole 40 MG DAILY AC 03/16 1210 DC 03/17 PO 0549 Oxycodone/ 1 TAB Q6P PRN 03/10 1030 AC Acetaminophen PO Oxycodone/ 2 TAB Q6P PRN 03/10 1030 AC Acetaminophen PO Pantoprazole Sodium 40 MG BID 03/17 2200 AC IV Prednisone 10 MG DAILY 03/21 1000 AC PO 03/22 1001 Prednisone 20 MG DAILY 03/19 1000 AC PO 03/20 1001 Prednisone 30 MG DAILY 03/17 1000 AC 03/17 PO 03/18 1001 1011 Senna 187 MG AT BEDTIME PRN 03/16 1500 AC 03/16 PO 1642 Impression/Plan Impression/Problem List Impression: This is 76-year-old male with past medical history significant for COPD on 2 L home O2, JUANITO on nocturnal CPAP, hypertension, hyperlipidemia, type 2 diabetes mellitus, CAD with NH status post CABG, CVA, CK D stage III, recently admitted for observation 2/[address] [facility] and discharged to [facility] at [place]. He now presents to chief complaint of lethargy. Upon ED workup he was found to have acute on chronic hypercarbic and hypoxemic respiratory failure secondary to JUANITO and COPD exacerbation. He was placed on BiPAP, IV azithromycin and steroids. Initially did not improve, was transferred to ICU for further aggressive management and closer monitoring. Of note, patient had troponins of 0.33 in ED, which were then trended down. PLAN Respiratory: Patient was extubated on 03/16/2016. He tolerated the procedure well. He is now back to his 2 L nasal cannula baseline and satting in the high 90s. He still does require BiPAP at night. * DC all inhalers * If worsened check ABG * Continue prednisone taper * Stop his home theophylline * Aspiration precautions * BiPAP at night ID: Patient growing greater than 100,000 units of enterococcus in his urine. Sensitive to ampicillin and Macrobid and vancomycin. He has been afebrile in hospital. Initial UA showed no white count or LE. Second UA negative for signs of infection but showed 4+ uric acid crystals. Looks unlikely urine source of infection. However wbc count high. Concern for infxn in this recently extubated gentleman. We'll get chest x-ray this a.m. white count this a.m. at 20. * Pt was on Augmentin 875 by mouth twice a day (4 days)--> will switch to Unasyn until white count trends down. This is Unasyn day 3. * Pt on condom cath * Monitor patient clinically Cardiovascular: Initially cardiac medications including aspirin, plavix, and beta benigno were held on 03/11/2016. But after speaking with Dr. Negrete staff on 03/15/2016 we resumed baby aspirin. However this a.m. pt had GI bleed. We will discontinue aspirin, hold off on Plavix, and hold off on subcutaneous heparin for DVT prophylaxis. Will speak with cardiology regarding their recs on permanent cessation of antiplatelet therapy. Patient has significant history of type 2 diabetes mellitus, hypertension, and NH status post CABG. Echo suggested EF of 40. During this admission patient had demand-related troponin, highest reading at 0.33, subsequently trended downward. No EKG changes. Goal is to keep H&H at 8 and 24. Today at 7.7 from 9.9; will transfuse one unit pRBC. * Thank you cardiology consult * Continue I's and O's * Currently holding home diuretics per cardiology recommendation. * cholesterol panel showed total cholesterol 113, LDL 51, HDL 40. Hematology: Pt has gotten a total of 4u pRBC txfusion during this admission for acute blood loss. Goal is H/H 8 & 24. * Con't monitor H/H and transfuse as necessary * Repeat cbc today at 6pm (Hb at 7.7) GI: Pt went for EGD on 03/12 in AM for an episode of GI bleed and subsequent decrease in H/H . EGD showed non-bleeding duodenal ulcers. * Hold all antiplatelets and anticoagulants * Continue Alps * PPI 40 IVQ12 * Continue to guaiac all stool Musculoskeletal: Stable from this perspective will continue to monitor Nephro: Patient has CK D stage III with creatinine at 1.4 (at baseline) today. We will avoid nephrotoxic medications and continue to monitor Endocrine: Patient has history of diabetes mellitus. A1c measured during this admission at 6.3. T4 within normal limits TSH low. A.m. cortisol 14; Normal limits. * Outpatient follow-up on TSH * Diabetic diet * Resume sliding scale * FS Problem List: 1. Duodenal ulcer disease 2. Melena 3. Acute on chronic respiratory failure with hypoxia and hypercapnia Pain Ratin Pain Location: none Tomorrow's Labs & Rationales: icu cbc Plan DVT/Prophylaxis: pharmacological
[2016-03-17 19:55] LABS: ABSOLUTE BASOPHIL COUNT 0 /CUMM (0.0-0.2); ABSOLUTE EOSINOPHIL COUNT 0 /CUMM (0.0-0.7); ABSOLUTE MONOCYTE COUNT 0.9 /CUMM (0.10-0.60); BASOPHIL % 0 % (0.0-2.0); RBC DISTRIBUTION WIDTH 17.3 % (11.5-14.5); WHITE BLOOD CELL COUNT 23.3 /CUMM (4.8-10.8)
[2016-03-17 20:00] LABS: ABSOLUTE GRANULOCYTE CT 21.4 /CUMM (1.4-6.5); EOSINOPHIL % 0 % (0-5); GRANULOCYTE % 91.9 % (42.2-75.2); MEAN CORPUSCULAR HGB 27.8 PG (27.0-31.0); MEAN CORPUSCULAR HGB CONC 32.7 G/DL (33.0-37.0); MEAN CORPUSCULAR VOLUME 85.1 FL (80.0-94.0); MEAN PLATELET VOLUME 9.8 FL (7.4-10.4); PLATELET COUNT 170 /CUMM (130-400); RED BLOOD CELL CT 2.71 /CUMM (4.70-6.10)
[2016-03-18] VITALS: BP 102/60
--- NOTE | 2016-03-18 01:02 | NUR ---
PT AROUSABLE, DENIES PAIN AT THIS TIME. RECEIVING PRBC NOW, NO ADVERSE REACTION NOTED. ON A BIPAP AT 30%, SATURATION 98%. LUNGS SOUND CLEAR. NO BM SO FAR. INCONTINENT OF URINE, KEPT CLEAN AND DRY.
[2016-03-18 05:04] LABS: ABSOLUTE BASOPHIL COUNT 0 /CUMM (0.0-0.2); ABSOLUTE EOSINOPHIL COUNT 0 /CUMM (0.0-0.7); ABSOLUTE GRANULOCYTE CT 21.1 /CUMM (1.4-6.5); ABSOLUTE LYMPH COUNT 1.9 /CUMM (1.2-3.4); ABSOLUTE MONOCYTE COUNT 1.8 /CUMM (0.10-0.60); BASOPHIL % 0 % (0.0-2.0); EOSINOPHIL % 0.1 % (0-5); GRANULOCYTE % 84.8 % (42.2-75.2); HEMATOCRIT 24.7 % (42-52); MEAN CORPUSCULAR HGB 29.5 PG (27.0-31.0); MEAN CORPUSCULAR HGB CONC 34.2 G/DL (33.0-37.0); MEAN CORPUSCULAR VOLUME 86.3 FL (80.0-94.0); MEAN PLATELET VOLUME 10.9 FL (7.4-10.4); PLATELET COUNT 143 /CUMM (130-400); RBC DISTRIBUTION WIDTH 16.8 % (11.5-14.5); RED BLOOD CELL CT 2.86 /CUMM (4.70-6.10); WHITE BLOOD CELL COUNT 24.9 /CUMM (4.8-10.8)
[2016-03-18 08:00] VITALS: BP 102/50
--- NOTE | 2016-03-18 10:34 | PN- CRCU ---
Subjective HPI/Critical Care Issues: Patient seen and examined this morning. Similar stable and is no active bleeding. He does continue to have leukocytosis however he is afebrile and asymptomatic with normal imaging to date. Objective Current Medications: Current Medications Sig/Amadeo Start time Last Medication Dose Route Stop Time Status Admin Albuterol Sulfate 3 ML TID 03/10 2200 AC 03/18 INH 0833 Ampicillin Sodium/ 1,500 MG Q6 03/15 1800 DC 03/18 Sulbactam Sodium IV 0148 Sodium Chloride 100 ML Aspirin 81 MG DAILY 03/16 1000 DC 03/16 PO 1116 Carvedilol 3.125 MG BID 03/10 2200 AC 03/18 PO 0956 Docusate Sodium 100 MG DAILY PRN 03/16 1500 AC PO Escitalopram Oxalate 10 MG DAILY 03/10 1030 AC 03/18 PO 0955 Furosemide 40 MG ONE ONE 03/17 1400 CAN PO 03/17 1401 Furosemide 20 MG ONCE ONE 03/17 1215 DC 03/17 IV 03/17 1216 1702 Heparin Sodium 5,000 UNIT Q8 03/16 1400 DC 03/17 (Porcine) SC 0546 Insulin Aspart 8 UNITS ONCE ONE 03/17 2100 DC 03/17 SC 03/17 2101 2108 Insulin Human Regular 0 TIDAC/HS 03/18 1200 AC SC Insulin Human Regular 0 TIDAC/HS 03/16 0800 DC 03/18 SC 0855 Ipratropium [place] 2.5 ML TID 03/10 2200 AC 03/18 INH 0833 Omeprazole 40 MG DAILY AC 03/16 1210 DC 03/17 PO 0549 Oxycodone/ 1 TAB Q6P PRN 03/10 1030 AC Acetaminophen PO Oxycodone/ 2 TAB Q6P PRN 03/10 1030 AC Acetaminophen PO Pantoprazole Sodium 40 MG BID 03/17 2200 AC 03/18 IV 0956 Prednisone 10 MG DAILY 03/21 1000 AC PO 03/22 1001 Prednisone 20 MG DAILY 03/19 1000 AC PO 03/20 1001 Prednisone 30 MG DAILY 03/17 1000 DC 03/18 PO 03/18 1001 0955 Senna 187 MG AT BEDTIME PRN 03/16 1500 AC 03/16 PO 1642 Vital Signs & I&O Last 24 Hrs of Vitals and I&O: Vital Signs Date Time Temp Pulse Resp B/P Pulse O2 O2 Flow FiO2 Ox Delivery Rate 03/18 0956 84 106/80 03/18 0837 94 Nasal 2.0L Cannula 03/18 0836 82 94 03/18 0530 80 98 03/18 0400 97 BIPAP 30% 03/18 0324 85 98 03/18 0035 87 98 03/18 0000 98 BIPAP 30% 03/18 0000 98.7 90 24 102/60 98 BIPAP 30% 03/17 2119 95 97 03/17 2107 973.0 108/53 03/17 2014 94 Nasal 2.0L Cannula 03/17 1999 97 Nasal 2.0L Cannula 03/17 1599 97 Nasal 2.0L Cannula 03/17 1600 97.4 78 30 112/64 97 Nasal 2.0L Cannula 03/17 1200 96 Nasal 2.0L Cannula Intake & Output 03/18 1600 03/18 0800 03/18 0000 Intake Total 200 638 Output Total Balance 200 638 Intake, IV 100 458 Intake, Oral 100 180 Number 4 Bowel Movements Patient 226 lb Weight Exam Other Physical Findings: gen - awake and alert heent - poor dentition cvs s1, s2 lungs rare rhonchi, transmitted abd soft bs+ ext without edema Results Last 24 Hrs of Lab Results: Laboratory Tests 03/18/16 0400: Anion Gap 9, Estimated GFR 35 L, Glucose 341 H, Calcium 7.5 L, Phosphorus 5.0 H, Magnesium 2.5 H, Total Bilirubin 0.6, AST 15 L, ALT 50, Albumin 2.3 L, CBC w Diff NO MAN DIFF REQ, RBC 2.86 L, MCV 86.3, MCH 29.5, RDW 16.8 H, MPV 10.9 H, Gran % 84.8 H, Lymphocytes % 7.8 L, Monocytes % 7.3, Eosinophils % 0.1, Basophils % 0 L, Absolute Granulocytes 21.1 H, Absolute Lymphocytes 1.9, Absolute Monocytes 1.8 H, Absolute Eosinophils 0, Absolute Basophils 0, PUBS MCHC 34.2 03/17/16 1900: CBC w Diff MAN DIFF ORDERED, RBC 2.71 L, MCV 85.1, MCH 27.8, RDW 17.3 H, MPV 9.8, Gran % 91.9 H, Lymphocytes % 4.3 L, Monocytes % 3.8, Eosinophils % 0, Basophils % 0 L, Absolute Granulocytes 21.4 H, Absolute Lymphocytes 1.0 L, Absolute Monocytes 0.9 H, Absolute Eosinophils 0, Absolute Basophils 0, Platelet Estimate ADEQUATE, Hypochromic-Microcytic 1+, Poikilocytosis 1+, PUBS MCHC 32.7 L Impression/Plan Impression/Plan Impression/Plan: Impression 76-year-old man with hypercarbic respiratory failure. History of congestive heart disease. Resolved acute blood loss anemia. Resolved respiratory failure. Plan - Monitor off antibiotics and reduce steroids to 20 mg for 2 days and then 10 mg for 2 days and then stop. If leukocytosis persists an infectious disease consultation may be useful - f/u cbc in 4 hrs and alert GI regarding drop in hgb - prednisone taper - Ins and outs and diuresis as needed to keep him that even to negative fluid balance - Aspiration precautions - TRC nebs - f/u cardiology recommendations TTS 35 min Downgraded to telemetry
--- NOTE | 2016-03-18 10:41 | NUR ---
PT DROWSY THIS AM, LOOKED THOUGH HE MAY HAVE HAD EMESIS WHILE ON BIPAP THERE WAS DRAINAGE ON HIS MOUTH AND TOP AND INSIDE BIPBP. MD NOTIFIED. HE DOES NOT RECALL ANY EMESIS. MONITOR NSR, AFEBRILE. EXTREMELY WEAK, OOB WITH MAX ASSIST OF 3 . HE DENIES ANY PAIN, HIS APPETITE IS POOR, HE DENIES NAUSEA BUT IS NOT EATING ANYTHING, JUST DRINKING LIQUIDS.
--- NOTE | 2016-03-18 11:26 | PN- Cardiology ---
Subjective Subjective: No complaints. Specifically denies any chest discomfort, palpitations, shortness of breath, etc. Objective Vital Signs and I&Os Vital Signs Date Time Temp Pulse Resp B/P Pulse O2 O2 Flow FiO2 Ox Delivery Rate 03/18 0956 84 106/80 03/18 0837 94 Nasal 2.0L Cannula 03/18 0836 82 94 03/18 0800 96 Nasal 2.0L Cannula 03/18 0800 98.8 78 14 102/50 96 Nasal 2.0L Cannula 03/18 0530 80 98 03/18 0400 97 BIPAP 30% 03/18 0324 85 98 03/18 0035 87 98 03/18 0000 98 BIPAP 30% 03/18 0000 98.7 90 24 102/60 98 BIPAP 30% 03/17 2119 95 97 03/17 2107 973.0 108/53 03/17 2015 94 Nasal 2.0L Cannula 03/17 1999 97 Nasal 2.0L Cannula 03/17 1600 97 Nasal 2.0L Cannula 03/17 1600 97.4 78 30 112/64 97 Nasal 2.0L Cannula 03/17 1200 96 Nasal 2.0L Cannula Intake & Output 03/18 1600 03/18 0800 03/18 0000 03/17 1600 03/17 0800 03/17 0000 Intake Total 200 103 676 8857 680 Output Total 200 Balance 200 638 712 840 680 Intake, Blood 112 Product Intake, IV 100 458 120 240 120 Intake, Oral 100 180 480 800 560 Number 4 2 Bowel Movements Output, Urine 200 Patient 226 lb 226 lb Weight Physical Exam: HEENT: Normocephalic, atraumatic, EOMI, moist mucous membranes. Neck: No JVD, no bruits. Lungs: Decreased breath sounds bilaterally with occasional rhonchi and a few crackles at the bases. Heart: S1, S2 with grade 2/6 systolic murmur. Abdomen: Soft, nontender, positive bowel sounds. Extremities: No edema. Current Medications: Current Medications Sig/Amadeo Start time Last Medication Dose Route Stop Time Status Admin Albuterol Sulfate 3 ML TID 03/10 2200 AC 03/18 INH 0833 Ampicillin Sodium/ 1,500 MG Q6 03/15 1800 DC 03/18 Sulbactam Sodium IV 0148 Sodium Chloride 100 ML Aspirin 81 MG DAILY 03/16 1000 DC 03/16 PO 1116 Carvedilol 3.125 MG BID 03/10 2200 AC 03/18 PO 0956 Docusate Sodium 100 MG DAILY PRN 03/16 1500 AC PO Escitalopram Oxalate 10 MG DAILY 03/10 1030 AC 03/18 PO 0955 Furosemide 40 MG ONE ONE 03/17 1400 CAN PO 03/17 1401 Furosemide 20 MG ONCE ONE 03/17 1215 DC 03/17 IV 03/17 1216 1702 Heparin Sodium 5,000 UNIT Q8 03/16 1400 DC 03/17 (Porcine) SC 0546 Insulin Aspart 8 UNITS ONCE ONE 03/17 2100 DC 03/17 SC 03/17 2101 2108 Insulin Human Regular 0 TIDAC/HS 03/18 1200 AC SC Insulin Human Regular 0 TIDAC/HS 03/16 0800 DC 03/18 SC 0855 Ipratropium [place] 2.5 ML TID 03/10 2200 AC 03/18 INH 0833 Omeprazole 40 MG DAILY AC 03/16 1210 DC 03/17 PO 0549 Oxycodone/ 1 TAB Q6P PRN 03/10 1030 AC Acetaminophen PO Oxycodone/ 2 TAB Q6P PRN 03/10 1030 AC Acetaminophen PO Pantoprazole Sodium 40 MG BID 03/17 2200 AC 03/18 IV 0956 Prednisone 10 MG DAILY 03/21 1000 AC PO 03/22 1001 Prednisone 20 MG DAILY 03/19 1000 AC PO 03/20 1001 Prednisone 30 MG DAILY 03/17 1000 DC 03/18 PO 03/18 1001 0955 Senna 187 MG AT BEDTIME PRN 03/16 1500 AC 03/16 PO 1642 Results Last 48 Hrs of Labs/Mics: Laboratory Tests 03/18/16 0400: Anion Gap 9, Estimated GFR 35 L, Glucose 341 H, Calcium 7.5 L, Phosphorus 5.0 H, Magnesium 2.5 H, Total Bilirubin 0.6, AST 15 L, ALT 50, Albumin 2.3 L, CBC w Diff NO MAN DIFF REQ, RBC 2.86 L, MCV 86.3, MCH 29.5, RDW 16.8 H, MPV 10.9 H, Gran % 84.8 H, Lymphocytes % 7.8 L, Monocytes % 7.3, Eosinophils % 0.1, Basophils % 0 L, Absolute Granulocytes 21.1 H, Absolute Lymphocytes 1.9, Absolute Monocytes 1.8 H, Absolute Eosinophils 0, Absolute Basophils 0, PUBS MCHC 34.2 03/17/16 1900: CBC w Diff MAN DIFF ORDERED, RBC 2.71 L, MCV 85.1, MCH 27.8, RDW 17.3 H, MPV 9.8, Gran % 91.9 H, Lymphocytes % 4.3 L, Monocytes % 3.8, Eosinophils % 0, Basophils % 0 L, Absolute Granulocytes 21.4 H, Absolute Lymphocytes 1.0 L, Absolute Monocytes 0.9 H, Absolute Eosinophils 0, Absolute Basophils 0, Platelet Estimate ADEQUATE, Hypochromic-Microcytic 1+, Poikilocytosis 1+, PUBS MCHC 32.7 L 03/17/16 1030: CBC w Diff MAN DIFF ORDERED, RBC 2.58 L, MCV 89.1, MCH 29.5, RDW 14.8 H, MPV 9.5, Gran % 78.7 H, Lymphocytes % 11.3 L, Monocytes % 9.2, Eosinophils % 0.7, Basophils % 0.1, Absolute Granulocytes 16.3 H, Absolute Lymphocytes 2.4, Absolute Monocytes 1.9 H, Absolute Eosinophils 0.1, Absolute Basophils 0, Platelet Estimate ADEQUATE, Polychromasia 1+, Hypochromic-Microcytic 1+, Poikilocytosis 1+, Basophilic Stippling , Anisocytosis 1+, PUBS MCHC 33.1 03/17/16 0745: Anion Gap 5, Estimated GFR 37 L, Glucose 254 H, Calcium 7.6 L, Phosphorus 4.0 , Magnesium 2.6 H, Total Bilirubin 0.4, AST 18, ALT 69, Albumin 2.5 L, CBC w Diff NO MAN DIFF REQ, RBC 2.45 L, MCV 89.2, MCH 30.3, RDW 14.7 H, MPV 10.6 H, Gran % 79.0 H, Lymphocytes % 11.2 L, Monocytes % 8.9, Eosinophils % 0.7, Basophils % 0.2, Absolute Granulocytes 17.0 H, Absolute Lymphocytes 2.4, Absolute Monocytes 1.9 H, Absolute Eosinophils 0.2, Absolute Basophils 0, PUBS MCHC 34.0 03/17/16 0500: Anion Gap 7, Estimated GFR 39 L, Glucose 282 H, Calcium 7.5 L, Phosphorus 3.5 , Magnesium 2.5 H, Total Bilirubin 0.4, AST 21, ALT 68, Albumin 2.3 L Assessment/Plan Assessment/Plan Mr. David is an elderly morbidly obese male with a history of former heavy tobacco use, COPD on home oxygen with multiple previous exacerbations, obesity hyperventilation syndrome, obstructive sleep apnea on CPAP, previous stroke without residual deficits, chronic kidney disease, chronic anemia, hypertension, dyslipidemia, diabetes mellitus, and coronary artery disease S/P previous AK's by ECG/left ventricular systolic dysfunction with previous heart failure s/p CABG 2010 at [facility] who returned with lethargy and shortness of breath and who is again found to be having an acute exacerbation of his COPD with a modest troponin elevation. There is no suggestion in the record that he had any recent complaints of chest discomfort, his electrocardiograms have not shown any acute changes, and his troponins are only modestly elevated suggesting that the troponin I elevation is on the basis of demand ischemia (acute illness, left ventricular hypertrophy, etc.), acute respiratory failure, chronic kidney disease, etc. He additionally had significant GI bleeding requiring transfusion of PRBCs and is s/p EGD with prophylactic transient intubation and clipping of duodenal ulcerations on 03/12/2016. Enteric-coated ASA 81 mg was restarted, but is again on hold following a further decrease in his hemoglobin/hematocrit on 03/17/2016 that required 2 additional units of packed RBCs. He additionally received IV furosemide 20 mg 1. Fortunately, he has remained hemodynamic stable and without complaints. Recommendations: * Continue telemetry-hold admission, follow-up CBC and continue to transfuse to keep hemoglobin at or above 8 g/dl given his known coronary artery disease s/p CABG 2010. * Discuss with GI when, or if, they think antiplatelet therapy can be reinitiated. * Echocardiogram revealed improved overall left ventricular function. * Continue on beta benigno. * Continue to hold daily diuretic, angiotensin receptor benigno, mineralocorticoid (aldosterone) receptor antagonist for the short-term. * Deep venous thrombosis prophylaxis. Continue telemetry? Yes
[2016-03-18 15:07] LABS: ABSOLUTE BASOPHIL COUNT 0 /CUMM (0.0-0.2); ABSOLUTE EOSINOPHIL COUNT 0 /CUMM (0.0-0.7); ABSOLUTE GRANULOCYTE CT 27.2 /CUMM (1.4-6.5); ABSOLUTE MONOCYTE COUNT 0.7 /CUMM (0.10-0.60); BASOPHIL % 0 % (0.0-2.0); EOSINOPHIL % 0.1 % (0-5); HEMATOCRIT 23.6 % (42-52); MEAN CORPUSCULAR HGB 29.3 PG (27.0-31.0); MEAN CORPUSCULAR HGB CONC 33.8 G/DL (33.0-37.0); MEAN CORPUSCULAR VOLUME 86.6 FL (80.0-94.0); MEAN PLATELET VOLUME 10.1 FL (7.4-10.4); PLATELET COUNT 148 /CUMM (130-400); RBC DISTRIBUTION WIDTH 16.7 % (11.5-14.5); RED BLOOD CELL CT 2.73 /CUMM (4.70-6.10)
[2016-03-18 16:00] VITALS: BP 109/48
--- NOTE | 2016-03-18 17:01 | PN- Resident CRCU ---
Subjective HPI/CRCU Issues: Pt in ICU for: Acute GI bleed Saw pt this AM. It is the first time have seen him out of bed and sitting in chair. He was eating breakfast. He stated he felt much better. Of note his H& H continues to drop. After transfusion of 2 unit PRBC he was down to a point for this a.m. at 8. The goal is to keep him about 8. We'll transfuse 1 unit. And we will speak with GI. Objective Vital Signs & I&O Last 8 Hrs of Vitals and I&O: Vital Signs Date Time Temp Pulse Resp B/P Pulse O2 O2 Flow FiO2 Ox Delivery Rate 03/18 1552 Nasal 2.0L Cannula 03/18 1200 98 Nasal 2.0L Cannula 03/18 0956 84 106/80 03/18 0837 94 Nasal 2.0L Cannula 03/18 0836 82 94 03/18 0800 96 Nasal 2.0L Cannula 03/18 0800 98.8 78 14 102/50 96 Nasal 2.0L Cannula 03/18 0530 80 98 03/18 0400 97 BIPAP 30% 03/18 0324 85 98 03/18 0035 87 98 03/18 0000 98 BIPAP 30% 03/18 0000 98.7 90 24 102/60 98 BIPAP 30% 03/17 2119 95 97 03/17 2107 973.0 108/53 03/17 2014 94 Nasal 2.0L Cannula 03/17 2000 97 Nasal 2.0L Cannula Intake & Output 03/18 1600 03/18 0800 03/18 0000 Intake Total 200 638 Output Total Balance 200 638 Intake, IV 100 458 Intake, Oral 100 180 Number 4 Bowel Movements Patient 102.512 kg Weight Exam General Appearance: well developed/nourished, no apparent distress, alert, awake , comfortable Head: atraumatic, normal appearance Ears, Nose, Throat: normal pharynx Neck: supple Respiratory: decreased breath sounds, crackles Cardiovascular: regular rate/rhythm Gastrointestinal: soft, non-tender Extremities: normal inspection Weaning Parameters NIF: 23 Minute Volume: 5.7 Resp rate: 24 Vt: 268 Heart Rate: 53 Weaning Schedule Start Time: 1015 Minute Volume: 5.3 Resp Rate: 21 Vt: 260 Heart Rate: 55 End Time: 1205 Minute Volume: 6.1 Resp Rate: 23 Vt: 300 Heart Rate: 56 Nutrition Nutrition: P.O. diet Current Medications: Current Medications Sig/Amadeo Start time Last Medication Dose Route Stop Time Status Admin Albuterol Sulfate 3 ML TID 03/10 2200 AC 03/18 INH 1239 Ampicillin Sodium/ 1,500 MG Q6 03/15 1800 DC 03/18 Sulbactam Sodium IV 0148 Sodium Chloride 100 ML Carvedilol 3.125 MG BID 03/10 2200 AC 03/18 PO 0956 Docusate Sodium 100 MG DAILY PRN 03/16 1500 AC PO Escitalopram Oxalate 10 MG DAILY 03/10 1030 AC 03/18 PO 0955 Insulin Aspart 8 UNITS ONCE ONE 03/17 2100 DC 03/17 SC 03/17 2101 2108 Insulin Human Regular 0 TIDAC/HS 03/18 1200 AC 03/18 SC 1207 Insulin Human Regular 0 TIDAC/HS 03/16 0800 DC 03/18 SC 0855 Ipratropium [place] 2.5 ML TID 03/10 2200 AC 03/18 INH 1239 Oxycodone/ 1 TAB Q6P PRN 03/10 1030 AC Acetaminophen PO Oxycodone/ 2 TAB Q6P PRN 03/10 1030 AC Acetaminophen PO Pantoprazole Sodium 40 MG BID 03/17 2200 AC 03/18 IV 0956 Prednisone 10 MG DAILY 03/21 1000 AC PO 03/22 1001 Prednisone 20 MG DAILY 03/19 1000 AC PO 03/20 1001 Prednisone 30 MG DAILY 03/17 1000 DC 03/18 PO 03/18 1001 0955 Senna 187 MG AT BEDTIME PRN 03/16 1500 AC 03/16 PO 1642 Impression/Plan Impression/Problem List Impression: This is 76-year-old male with past medical history significant for COPD on 2 L home O2, JUANITO on nocturnal CPAP, hypertension, hyperlipidemia, type 2 diabetes mellitus, CAD with AK status post CABG, CVA, CK D stage III, recently admitted for observation 2/2 lethargy at [facility] and discharged to [facility] at [place]. He now presents to chief complaint of lethargy. Upon ED workup he was found to have acute on chronic hypercarbic and hypoxemic respiratory failure secondary to JUANITO and COPD exacerbation. He was placed on BiPAP, IV azithromycin and steroids. Initially did not improve, was transferred to ICU for further aggressive management and closer monitoring. Of note, patient had troponins of 0.33 in ED, which were then trended down. PLAN Respiratory: IMPROVED. Patient was extubated on 03/16/2016. He tolerated the procedure well. He is now back to his 2 L nasal cannula baseline and satting in the high 90s. He still does require BiPAP at night. * DC all inhalers * If worsened check ABG * Continue prednisone taper of 20mg for two days and then 10mg for two days. * Stop his home theophylline * Aspiration precautions * BiPAP at night ID: Patient growing greater than 100,000 units of enterococcus in his urine. Sensitive to ampicillin and Macrobid and vancomycin. He has been afebrile in hospital. Initial UA showed no white count or LEsterase. Second UA negative for signs of infection but showed 4+ uric acid crystals. Seems unlikely that urine source of infection. Today white count at almost 30,000 despite decerased steroid doses. We will stop all abx; decrease steroids and monitor. * Pt got 7 days of abx initially with augmentin and then to Unasyn. STOP all abx * Pt on condom cath * Monitor patient clinically Cardiovascular: Initially cardiac medications including aspirin, plavix, and beta benigno were held on 03/11/2016. But after speaking with Dr. Negrete staff on 03/15/2016 we resumed baby aspirin. However this a.m. pt had GI bleed. We will discontinue aspirin, hold off on Plavix, and hold off on subcutaneous heparin for DVT prophylaxis. Will speak with cardiology regarding their recs on permanent cessation of antiplatelet therapy. Patient has significant history of type 2 diabetes mellitus, hypertension, and AK status post CABG. Echo suggested EF of 40. During this admission patient had demand-related troponin, highest reading at 0.33, subsequently trended downward. No EKG changes. Goal is to keep H&H at 8 and 24. Today at 7.7 from 9.9; will transfuse one unit pRBC. * Thank you cardiology consult * Continue I's and O's * Currently holding home diuretics per cardiology recommendation. * cholesterol panel showed total cholesterol 113, LDL 51, HDL 40. Hematology: Pt has gotten a total of 5u pRBC txfusion during this admission for acute blood loss. Goal is H/H 8 & 24. Today we got repeat H/h and pt went form 8.4--> 8.0. Initially we had transfused two units and he went from [age] yo 8.4. We will transfuse one more unit. Check CBC in AM. * Con't monitor H/H and transfuse as necessary * Repeat cbc (Hb at 8.0) GI: Pt went for EGD on 03/12 in AM for an episode of GI bleed and subsequent decrease in H/H . EGD showed non-bleeding duodenal ulcers. Now pt continues to have GI bleed but is poor candidate for scope as he would have to be intubated again. * Hold all antiplatelets and anticoagulants * Continue Alps * PPI 40 IVQ12 * Continue to guaiac all stool Musculoskeletal: Stable from this perspective will continue to monitor * PT Nephro: Patient has CK D stage III with creatinine at 1.4 (at baseline) today. We will avoid nephrotoxic medications and continue to monitor Endocrine: Patient has history of diabetes mellitus. A1c measured during this admission at 6.3. T4 within normal limits TSH low. A.m. cortisol 14; Normal limits. * Outpatient follow-up on TSH * Diabetic diet * Resume sliding scale * FS Problem List: 1. Duodenal ulcer disease 2. Melena 3. Acute on chronic respiratory failure with hypoxia and hypercapnia Pain Ratin Pain Location: none Tomorrow's Labs & Rationales: cbc icu Plan DVT/Prophylaxis: pharmacological
[2016-03-19] VITALS: BP 96/52
[2016-03-19 05:29] LABS: ABSOLUTE BASOPHIL COUNT 0 /CUMM (0.0-0.2); ABSOLUTE EOSINOPHIL COUNT 0.1 /CUMM (0.0-0.7); ABSOLUTE GRANULOCYTE CT 25.2 /CUMM (1.4-6.5); ABSOLUTE LYMPH COUNT 1.9 /CUMM (1.2-3.4); ABSOLUTE MONOCYTE COUNT 1.2 /CUMM (0.10-0.60); BASOPHIL % 0 % (0.0-2.0); EOSINOPHIL % 0.2 % (0-5); GRANULOCYTE % 88.8 % (42.2-75.2); HEMATOCRIT 25.1 % (42-52); MEAN CORPUSCULAR HGB 30.3 PG (27.0-31.0); MEAN CORPUSCULAR HGB CONC 34.3 G/DL (33.0-37.0); MEAN CORPUSCULAR VOLUME 88.4 FL (80.0-94.0); MEAN PLATELET VOLUME 10.3 FL (7.4-10.4); PLATELET COUNT 126 /CUMM (130-400); RBC DISTRIBUTION WIDTH 15.4 % (11.5-14.5); RED BLOOD CELL CT 2.84 /CUMM (4.70-6.10); WHITE BLOOD CELL COUNT 28.3 /CUMM (4.8-10.8)
[2016-03-19 08:00] VITALS: BP 109/70
--- NOTE | 2016-03-19 10:55 | PN- CRCU ---
Subjective HPI/Critical Care Issues: The patient is awake and alert. He took his own Bipap mask off this morning. He had an episode of AF yesterday, however he is now in normal sinus rhythm. He can not be anticoagulated due to recurrent bleeding. There was no further repeated bleeding. His vital signs are stable. Objective Current Medications: Current Medications Sig/Amadeo Start time Last Medication Dose Route Stop Time Status Admin Albuterol Sulfate 3 ML TID 03/10 2200 AC 03/19 INH 0810 Carvedilol 3.125 MG BID 03/10 2200 AC 03/18 PO 2225 Docusate Sodium 100 MG DAILY PRN 03/16 1500 AC PO Escitalopram Oxalate 10 MG DAILY 03/10 1030 AC 03/18 PO 0955 Furosemide 20 MG ONCE ONE 03/18 1715 DC 03/18 IV 03/18 1715 203 Insulin Human Regular 0 TIDAC/HS 03/18 1200 AC 03/19 SC 0912 Ipratropium [place] 2.5 ML TID 03/10 2200 AC 03/19 INH 0810 Oxycodone/ 1 TAB Q6P PRN 03/10 1030 AC Acetaminophen PO Oxycodone/ 2 TAB Q6P PRN 03/10 1030 AC Acetaminophen PO Pantoprazole Sodium 40 MG BID 03/17 2200 AC 03/18 IV 2224 Prednisone 10 MG DAILY 03/21 1000 AC PO 03/22 1001 Prednisone 20 MG DAILY 03/19 1000 AC PO 03/20 1001 Senna 187 MG AT BEDTIME PRN 03/16 1500 AC 03/16 PO 1642 Vital Signs & I&O Last 24 Hrs of Vitals and I&O: Vital Signs Date Time Temp Pulse Resp B/P Pulse O2 O2 Flow FiO2 Ox Delivery Rate 03/19 0810 97 Nasal 2.0L Cannula 03/19 0810 71 97 03/19 0800 95 Nasal 2.0L Cannula 03/19 0800 98.0 80 18 109/70 95 Nasal 2.0L Cannula 03/19 0547 70 96 03/19 0400 96 BIPAP 30% 03/19 0322 75 98 03/19 0034 72 98 03/19 0000 97 BIPAP 30% 03/19 0000 97.5 74 24 96/52 97 BIPAP 30% 03/18 2225 73 115/54 03/18 2209 77 97 03/18 2000 98 Nasal 2.0L Cannula 03/18 1926 97 Nasal 2.0L Cannula 03/18 1600 96 Nasal 3.0L Cannula 03/18 1600 97.8 90 18 109/48 96 Nasal 2.0L Cannula 03/18 1552 Nasal 2.0L Cannula 03/18 1200 98 Nasal 2.0L Cannula Intake & Output 03/19 1600 03/19 0800 03/19 0000 Intake Total 0 960 Output Total Balance 0 960 Intake, Blood 350 Product Intake, IV 0 50 Intake, Oral 0 560 Number 0 0 Bowel Movements Patient 225 lb Weight Exam General Appearance: alert, awake, comfortable Head: atraumatic, normal appearance Neck: supple Respiratory: bilateral ronchi and scattered crackles Cardiovascular: regular rate/rhythm Abdomen: obese, soft, non-tender Extremities: no edema Skin: intact, normal color, warm/dry Results Last 24 Hrs of Lab Results: Laboratory Tests 03/19/16 0455: Anion Gap 7, Estimated GFR 35 L, Glucose 186 H, Calcium 7.9 L, Phosphorus 4.2 , Magnesium 2.6 H, Total Bilirubin 0.7, AST 13 L, ALT 44, Albumin 2.4 L, CBC w Diff MAN DIFF ORDERED, RBC 2.84 L, MCV 88.4, MCH 30.3, RDW 15.4 H, MPV 10.3, Gran % 88.8 H, Lymphocytes % 6.7 L, Monocytes % 4.3, Eosinophils % 0.2, Basophils % 0 L, Absolute Granulocytes 25.2 H, Absolute Lymphocytes 1.9, Absolute Monocytes 1.2 H, Absolute Eosinophils 0.1, Absolute Basophils 0, Platelet Estimate DECREASED, Polychromasia 1+, Hypochromic-Microcytic 2+, Poikilocytosis 2+, Anisocytosis 1+, PUBS MCHC 34.3 03/18/16 1410: CBC w Diff MAN DIFF ORDERED, RBC 2.73 L, MCV 86.6, MCH 29.3, RDW 16.7 H, MPV 10.1, Gran % 94.0 H, Lymphocytes % 3.4 L, Monocytes % 2.5, Eosinophils % 0.1, Basophils % 0 L, Absolute Granulocytes 27.2 H, Absolute Lymphocytes 1.0 L, Absolute Monocytes 0.7 H, Absolute Eosinophils 0, Absolute Basophils 0, Platelet Estimate VERIFIED BY SMEAR, Polychromasia 1+, Poikilocytosis 1+, Anisocytosis 1+, Ovalocytes 1+, [place] Cells 1+, PUBS MCHC 33.8 Impression/Plan Impression/Plan Impression/Plan: 1. Acute on chronic hypercarbic respiratory failure, severe COPD. 2. History of congestive heart disease. 3. Resolved acute blood loss anemia. Recommendations: * Continue prednisone taper. * Will consult ID if the patient's with blood cell count continues to remain elevated. * Maintain the patient on aspiration precautions. * Strict I's and O's, maintain negative fluid balance as able. * Continue TRC and nebs. * Continue nocturnal Bipap and PRN. * Follow up cardiology recommendations. * Continue bowel regimen. * Continue IV Pantoprazole. * Avoid anticoagulation. * Downgrade to telemetry.
--- NOTE | 2016-03-19 11:06 | PN- Resident CRCU ---
Subjective HPI/CRCU Issues: Patient was seen and examined. He is sitting on chair, eating breakfast, and watching TV. Patient denies any overnight events. He denies any current complaints. No chest pain, no shortness breath, and no palpitation. Objective Vital Signs & I&O Last 8 Hrs of Vitals and I&O: Intake & Output 03/19 1600 03/19 0800 03/19 0000 Intake Total 0 960 Output Total Balance 0 960 Intake, Blood 350 Product Intake, IV 0 50 Intake, Oral 0 560 Number 0 0 Bowel Movements Patient 102.172 kg Weight Laboratory Tests 03/19 03/18 0455 1410 Chemistry Sodium (137 - 145 mmol/L) 134 L Potassium (3.5 - 5.1 mmol/L) 4.7 Chloride (98 - 107 mmol/L) 101 Carbon Dioxide (22 - 30 mmol/L) 27 Anion Gap (5 - 16) 7 BUN (9 - 20 mg/dL) 92 H Creatinine (0.7 - 1.2 mg/dL) 1.9 H Estimated GFR (>60 ml/min) 35 L Glucose (65 - 99 mg/dL) 186 H Calcium (8.4 - 10.2 mg/dL) 7.9 L Phosphorus (2.5 - 4.5 mg/dL) 4.2 Magnesium (1.6 - 2.3 mg/dL) 2.6 H Total Bilirubin (0.2 - 1.3 mg/dL) 0.7 AST (17 - 59 U/L) 13 L ALT (21 - 72 U/L) 44 Albumin (3.5 - 5.0 g/dL) 2.4 L Hematology CBC w Diff MAN DIFF ORDERED MAN DIFF ORDERED WBC (4.8 - 10.8 /CUMM) 28.3 H 29.0 H RBC (4.70 - 6.10 /CUMM) 2.84 L 2.73 L Hgb (14.0 - 18.0 G/DL) 8.6 L 8.0 L Hct (42 - 52 %) 25.1 L 23.6 L MCV (80.0 - 94.0 FL) 88.4 86.6 MCH (27.0 - 31.0 PG) 30.3 29.3 RDW (11.5 - 14.5 %) 15.4 H 16.7 H Plt Count (130 - 400 /CUMM) 126 L 148 MPV (7.4 - 10.4 FL) 10.3 10.1 Gran % (42.2 - 75.2 %) 88.8 H 94.0 H Lymphocytes % (20.5 - 51.1 %) 6.7 L 3.4 L Monocytes % (1.7 - 9.3 %) 4.3 2.5 Eosinophils % (0 - 5 %) 0.2 0.1 Basophils % (0.0 - 2.0 %) 0 L 0 L Absolute Granulocytes (1.4 - 6.5 /CUMM) 25.2 H 27.2 H Absolute Lymphocytes (1.2 - 3.4 /CUMM) 1.9 1.0 L Absolute Monocytes (0.10 - 0.60 /CUMM) 1.2 H 0.7 H Absolute Eosinophils (0.0 - 0.7 /CUMM) 0.1 0 Absolute Basophils (0.0 - 0.2 /CUMM) 0 0 Platelet Estimate (ADEQUATE) DECREASED VERIFIED BY SMEAR Polychromasia 1+ 1+ Hypochromic-Microcytic 2+ Poikilocytosis 2+ 1+ Anisocytosis 1+ 1+ Ovalocytes 1+ Brock Cells 1+ PUBS MCHC (33.0 - 37.0 G/DL) 34.3 33.8 Exam General Appearance: well developed/nourished, no apparent distress, alert, awake , comfortable Head: atraumatic, normal appearance Neck: normal inspection, supple Respiratory: bilateral rhonchi with left being more than right. Scanty crackles . Very mild wheezing on the left side. Cardiovascular: regular rate/rhythm Gastrointestinal: normal bowel sounds, soft, non-tender Extremities: normal inspection, no edema Weaning Parameters NIF: 23 Minute Volume: 5.7 Resp rate: 24 Vt: 268 Heart Rate: 53 Weaning Schedule Start Time: 1015 Minute Volume: 5.3 Resp Rate: 21 Vt: 260 Heart Rate: 55 End Time: 1205 Minute Volume: 6.1 Resp Rate: 23 Vt: 300 Heart Rate: 56 Current Medications: Current Medications Sig/Amadeo Start time Last Medication Dose Route Stop Time Status Admin Albuterol Sulfate 3 ML TID 03/10 2199 AC 03/19 INH 0810 Carvedilol 3.125 MG BID 03/10 2199 AC 03/19 PO 1041 Docusate Sodium 100 MG DAILY PRN 03/16 1500 AC PO Escitalopram Oxalate 10 MG DAILY 03/10 1030 AC 03/19 PO 1041 Furosemide 20 MG ONCE ONE 03/18 1715 DC 03/18 IV 03/18 171 2034 Insulin Human Regular 0 TIDAC/HS 03/18 1200 AC 03/19 SC 0912 Ipratropium [place] 2.5 ML TID 03/10 2200 AC 03/19 INH 0810 Oxycodone/ 1 TAB Q6P PRN 03/10 1030 AC Acetaminophen PO Oxycodone/ 2 TAB Q6P PRN 03/10 1030 AC Acetaminophen PO Pantoprazole Sodium 40 MG BID 03/17 2200 AC 03/19 IV 1041 Prednisone 10 MG DAILY 03/21 1000 AC PO 03/22 1001 Prednisone 20 MG DAILY 03/19 1000 AC 03/19 PO 03/20 1001 1041 Senna 187 MG AT BEDTIME PRN 03/16 1500 AC 03/16 PO 1642 Impression/Plan Impression/Problem List Impression: Impression: This is 76-year-old male with past medical history significant for COPD on 2 L home O2, JUANITO on nocturnal CPAP, hypertension, hyperlipidemia, type 2 diabetes mellitus, CAD with [place] status post CABG, CVA, CK D stage III, recently admitted for observation 03/24 lethargy at [facility] and discharged to [facility] at [place]. He now presents to chief complaint of lethargy. Upon ED workup he was found to have acute on chronic hypercarbic and hypoxemic respiratory failure secondary to JUANITO and COPD exacerbation. He was placed on BiPAP, IV azithromycin and steroids. Initially did not improve, was transferred to ICU for further aggressive management and closer monitoring. Of note, patient had troponins of 0.33 in ED, which were then trended down. PLAN Respiratory: IMPROVED. Patient was extubated on 03/16/2016. He tolerated the procedure well. He is now back to his 2 L nasal cannula baseline and satting in the high 90s. He still does require BiPAP at night. * DC all inhalers * If worsened check ABG * Continue prednisone taper of 20mg for one day and then 10mg for two days. * Aspiration precautions * BiPAP at night ID: Patient growing greater than 100,000 units of enterococcus in his urine. Sensitive to ampicillin and Macrobid and vancomycin. He has been afebrile in hospital. Initial UA showed no white count or LEsterase. Second UA negative for signs of infection but showed 4+ uric acid crystals. Seems unlikely that urine source of infection. Today white count at almost 30,000 despite decerased steroid doses. We will stop all abx; decrease steroids and monitor. * Pt got 7 days of abx initially with augmentin and then to Unasyn. now all abx are DCed * Pt on condom cath * Monitor patient clinically Cardiovascular: Initially cardiac medications including aspirin, plavix, and beta benigno were held on 03/11/2016. But after speaking with Dr. Negrete staff on 03/15/2016 we resumed baby aspirin. However this a.m. pt had GI bleed. We will discontinue aspirin, hold off on Plavix, and hold off on subcutaneous heparin for DVT prophylaxis. Will speak with cardiology regarding their recs on permanent cessation of antiplatelet therapy. Patient has significant history of type 2 diabetes mellitus, hypertension, and GA status post CABG. Echo suggested EF of 40. During this admission patient had demand-related troponin, highest reading at 0.33, subsequently trended downward. No EKG changes. Goal is to keep H&H at 8 and 24. Today at 8.6 from 8.post transfuse yesterday * Thank you cardiology consult * Continue I's and O's * Currently holding home diuretics per cardiology recommendation. * cholesterol panel showed total cholesterol 113, LDL 51, HDL 40. Hematology: Pt has gotten a total of 5u pRBC txfusion during this admission for acute blood loss. Goal is H/H 8 & 24. Today we got repeat H/h and pt went form 8.4--> 8.0. Initially we had transfused 3 unites yesterday. today his Hb is 8.6 * Con't monitor H/H and transfuse as necessary * Repeat cbc (Hb at 8.6) GI: Pt went for EGD on 03/12 in AM for an episode of GI bleed and subsequent decrease in H/H . EGD showed non-bleeding duodenal ulcers. Now pt continues to have GI bleed but is poor candidate for scope as he would have to be intubated again. * Hold all antiplatelets and anticoagulants * Continue Alps * PPI 40 IVQ12 * Continue to guaiac all stool Musculoskeletal: Stable from this perspective will continue to monitor * PT Nephro: Patient has CK D stage III with creatinine 1.9 ( higher than baseline) today. We will avoid nephrotoxic medications and continue to monitor Endocrine: Patient has history of diabetes mellitus. A1c measured during this admission at 6.3. T4 within normal limits TSH low. A.m. cortisol 14; Normal limits. * Outpatient follow-up on TSH * Diabetic diet * Resume sliding scale * FS Problem List: 1. Melena 2. Duodenal ulcer disease 3. Acute on chronic respiratory failure with hypoxia and hypercapnia Pain Ratin Tomorrow's Labs & Rationales: cbc and BEP Plan DVT/Prophylaxis: pharmacological
--- NOTE | 2016-03-19 11:25 | NUR ---
PT DROWSY, WAKES EASILY. OOB WITH OSVALDO LIFT TO CHAIR. REMAINS WEAK. STILL REPORTS NO APPETITE, THIS MORNING HE IS ABLE TO TOLERATE GLUCERNA. DENIES PAIN OR NAUSEA. STABLE FOR TRANSFER TO TELEMETRY. REPORT CALED AND PT TRANSFERRED.
[2016-03-19 15:30] VITALS: BP 118/60
--- NOTE | 2016-03-19 22:46 | NUR ---
PTS BLOOD GLUCOSE AT 2099 WAS 424; DR YAMILET CASTILLO PAGED; WAS TOLD TO CONTINUE WITH NOVOLIN PER SLIDING SCALE; PT RECIEVED 5U AT BEDTIME PER SLIDING SCALE; WILL CHECK BLOOD GLUCOSE AT 02/2916 AT 0000
[2016-03-19 23:23] VITALS: BP 116/54
--- NOTE | 2016-03-20 07:45 | PN- Housestaff ---
JUAN BARRETT,[facility] 03/20/16 0745: Subjective Follow-up For: Acute on chronic hypercarbic respiratory failure in setting of COPD. Acute blood loss anemia. Subjective: Patient seen and examined this morning. He was lying in bed in no acute distress. Answers from ICU yesterday. Currently her TRC and a nocturnal BiPAP, saturating in high 90s on 2 L of nasal car oxygen. Remains afebrile, Other vitals within normal limits Review of Systems Constitutional: Denies: chills, fever. Cardiovascular: Denies: chest pain, palpitations. Respiratory: Reports: cough, short of breath, sputum production. Gastrointestinal: Denies: abdominal pain, constipation, diarrhea, nausea, vomiting. Genitourinary: Denies: dysuria, frequency. Objective Last 24 Hrs of Vital Signs/I&O Vital Signs Date Time Temp Pulse Resp B/P Pulse O2 O2 Flow FiO2 Ox Delivery Rate 03/20 0909 97 Nasal 2.0L Cannula 03/20 0901 68 110/68 03/20 0814 98.6 68 24 110/68 95 BIPAP 03/20 0800 Nasal 2.0L Cannula 03/20 0007 62 94 03/19 2323 98.0 65 24 116/54 95 BIPAP 30% 03/19 2149 67 98 03/19 2130 98.2 71 20 118/60 03/19 1835 94 Nasal 2.0L Cannula 03/19 1530 98.2 71 20 118/60 100 Nasal 2.0L Cannula 03/19 1400 93 Nasal 2.0L Cannula 03/19 1041 80 106/70 Intake & Output 03/20 1600 03/20 0800 03/20 0000 Intake Total 250 Output Total Balance 250 Intake, Oral 250 Number 4 Bowel Movements Physical Exam General Appearance: Alert, Oriented X3, Cooperative Cardiovascular: Regular Rate, Normal S1, Normal S2, No Murmurs Lungs: bilateral scattered rhonchi Abdomen: Normal Bowel Sounds, Soft, No Tenderness Extremities: No Clubbing, No Cyanosis, No Edema Current Medications: Current Medications Sig/Amadeo Start time Last Medication Dose Route Stop Time Status Admin Albuterol Sulfate 3 ML TID 03/10 2199 AC 03/20 INH 0906 Carvedilol 3.125 MG BID 03/10 2199 AC 03/20 PO 0901 Docusate Sodium 100 MG DAILY PRN 03/16 1500 AC PO Escitalopram Oxalate 10 MG DAILY 03/10 1030 AC 03/20 PO 0901 Insulin Aspart 2 UNITS ONCE ONE 03/20 0245 DC 03/20 SC 03/20 0246 0307 Insulin Human Regular 0 TIDAC/HS 03/18 1200 AC 03/20 SC 0858 Ipratropium [place] 2.5 ML TID 03/10 2200 AC 03/20 INH 0906 Oxycodone/ 1 TAB Q6P PRN 03/10 1030 AC Acetaminophen PO Oxycodone/ 2 TAB Q6P PRN 03/10 1030 AC Acetaminophen PO Pantoprazole Sodium 40 MG BID 03/17 2200 AC 03/20 IV 0901 Prednisone 10 MG DAILY 03/21 1000 AC PO 03/22 1001 Prednisone 20 MG DAILY 03/19 1000 DC 03/20 PO 03/20 1001 0900 Senna 187 MG AT BEDTIME PRN 03/16 1500 AC 03/16 PO 1642 Last 24 Hrs of Lab/Sumanth Results Last 24 Hrs of Labs/Mics: Laboratory Tests 03/20/16 0650: Anion Gap 2 L, Estimated GFR 42 L, Glucose 207 H, Calcium 7.9 L, Phosphorus 3.4, Magnesium 2.7 H, Total Bilirubin 0.5, AST 17, ALT 44, Albumin 2.3 L, CBC w Diff NO MAN DIFF REQ, RBC 2.51 L, MCV 88.9, MCH 29.6, RDW 16.1 H, MPV 9.4, Gran % 89.7 H, Lymphocytes % 5.2 L, Monocytes % 4.9, Eosinophils % 0.2, Basophils % 0 L, Absolute Granulocytes 21.8 H, Absolute Lymphocytes 1.3, Absolute Monocytes 1.2 H, Absolute Eosinophils 0, Absolute Basophils 0, PUBS MCHC 33.3 Assessment/Plan Assessment: Mr David is a 76 y/o M with PMHx of COPD on 2 L of oxygen at home, obstructive sleep apnea on nocturnal CPAP, HTN, HLD, T2DM, CAD c/b [place] s/p CABG in 2010, CVA, CKD stage III, recently admitted under observation to [facility] for respiratory failure and discharged to [facility] at [place] few days prior to current presentation, who presents with lethargy. This is 76-year-old male with past medical history significant for COPD on 2 L home O2, JUANITO on nocturnal CPAP, hypertension, hyperlipidemia, type 2 diabetes mellitus, CAD with IL status post CABG, CVA, CK D stage III, recently admitted for observation 2/2 lethargy at [facility] and discharged to [facility] at [place]. He now presents to chief complaint of lethargy. Upon ED workup he was found to have acute on chronic hypercarbic and hypoxemic respiratory failure secondary to JUANITO and COPD exacerbation. He was placed on BiPAP, IV azithromycin and steroids. Initially did not improve, was transferred to ICU for further aggressive management and closer monitoring. Of note, patient had troponins of 0.33 in ED, which were then trended down. PLAN Acute and chronic respiratory failure in setting of severe COPD : Patient was extubated on 03/16/2016. He tolerated the procedure well. He is now back to his 2 L nasal cannula baseline and satting in the high 90s. He still does require BiPAP at night. * If worsened check ABG * Continue prednisone taper of 20mg for one day and then 10mg for two days. * Aspiration precautions * BiPAP at night Patient growing greater than 100,000 units of enterococcus in his urine. Sensitive to ampicillin and Macrobid and vancomycin. He has been afebrile in hospital. Initial UA showed no white count or LEsterase. Second UA negative for signs of infection but showed 4+ uric acid crystals. Seems unlikely that urine source of infection. Today white count at almost 30,000 despite decerased steroid doses. We will stop all abx; decrease steroids and monitor. * Pt got 7 days of abx initially with augmentin. * Pt on condom cath Initially cardiac medications including aspirin, plavix, and beta benigno were held on 03/11/2016. But after speaking with Dr. Negrete staff on 03/15/2016 we resumed baby aspirin. However this a.m. pt had GI bleed. We will discontinue aspirin, hold off on Plavix, and hold off on subcutaneous heparin for DVT prophylaxis. Will speak with cardiology regarding their recs on permanent cessation of antiplatelet therapy. Patient has significant history of type 2 diabetes mellitus, hypertension, and [place] status post CABG. Echo suggested EF of 40. During this admission patient had demand-related troponin, highest reading at 0.33, subsequently trended downward. No EKG changes. Goal is to keep H&H at 8 and 24. Today at 8.6 from 8.post transfuse yesterday * Thank you cardiology consult * Continue I's and O's * Currently holding home diuretics per cardiology recommendation. * cholesterol panel showed total cholesterol 113, LDL 51, HDL 40. Hematology: Pt has gotten a total of 5u pRBC txfusion during this admission for acute blood loss. Goal is H/H 8 & 24. Today we got repeat H/h and pt went form 8.4--> 8.0. Initially we had transfused 3 unites yesterday. today his Hb is 8.6 * Con't monitor H/H and transfuse as necessary * Hb at 8.6>> 7.4 today, will transfuse one pack RBC GI: Pt went for EGD on 03/12 in AM for an episode of GI bleed and subsequent decrease in H/H . EGD showed non-bleeding duodenal ulcers. Now pt continues to have GI bleed but is poor candidate for scope as he would have to be intubated again. * Hold all antiplatelets and anticoagulants * Continue Alps * PPI 40 IVQ12 * Continue to guaiac all stool Musculoskeletal: Stable from this perspective will continue to monitor * PT Nephro: Patient has CK D stage III with creatinine 1.9 ( higher than baseline) today. We will avoid nephrotoxic medications and continue to monitor Endocrine: Patient has history of diabetes mellitus. A1c measured during this admission at 6.3. T4 within normal limits TSH low. A.m. cortisol 14; Normal limits. * Outpatient follow-up on TSH * Diabetic diet * Resume sliding scale * FS Problem List: 1. Duodenal ulcer disease 2. S/P CABG (coronary artery bypass graft) 3. HFrEF (heart failure with reduced ejection fraction) 4. Acute on chronic respiratory failure with hypoxia and hypercapnia 5. HLD (hyperlipidemia) 6. HTN (hypertension) 7. T2DM (type 2 diabetes mellitus) Pain Ratin Pain Location: None Pain Goal: Remain pain free Pain Plan: Percocet Tomorrow's Labs & Rationales: CBC for H&H monitoring BEP for lites monitoring GRETA VERGARA MD 03/20/161921: Attending MD Review Statement Attending Statement Attending MD Statement: examined this patient, discuss w/resident/PA/WARE SERVER, agreed w/resident/PA/WARE SERVER, reviewed EMR data (avail), discussed with nursing, amended to note Attending Assessment/Plan: The patient was seen and discussed with house staff. Appreciate pulmonary follow -up. Appetite poor per patient. H/H decreased with Hgb 7.4. Will transfuse to Hgb 8+ as per Cardiology. Agree with plan of care as outlined.
[2016-03-20 08:14] VITALS: BP 110/68
[2016-03-20 08:28] LABS: ABSOLUTE BASOPHIL COUNT 0 /CUMM (0.0-0.2); ABSOLUTE EOSINOPHIL COUNT 0 /CUMM (0.0-0.7); ABSOLUTE MONOCYTE COUNT 1.2 /CUMM (0.10-0.60); BASOPHIL % 0 % (0.0-2.0); EOSINOPHIL % 0.2 % (0-5)
[2016-03-20 09:15] LABS: ABSOLUTE GRANULOCYTE CT 21.8 /CUMM (1.4-6.5); ABSOLUTE LYMPH COUNT 1.3 /CUMM (1.2-3.4); HEMATOCRIT 22.3 % (42-52); MEAN CORPUSCULAR HGB 29.6 PG (27.0-31.0); MEAN CORPUSCULAR HGB CONC 33.3 G/DL (33.0-37.0); MEAN CORPUSCULAR VOLUME 88.9 FL (80.0-94.0); MEAN PLATELET VOLUME 9.4 FL (7.4-10.4); PLATELET COUNT 137 /CUMM (130-400); RBC DISTRIBUTION WIDTH 16.1 % (11.5-14.5); RED BLOOD CELL CT 2.51 /CUMM (4.70-6.10); WHITE BLOOD CELL COUNT 24.3 /CUMM (4.8-10.8)
[2016-03-20 09:18] LABS: GRANULOCYTE % 89.7 % (42.2-75.2)
--- NOTE | 2016-03-20 10:22 | PN- Pulmonary ---
Subjective HPI/Critical Care Issues: The patient is awake and alert. He appears in no distress. He complains of ongoing weakness. He has no chest pain or shortness of breath. There is no evidence of bleeding. There were no overnight events reported. Objective Current Medications: Current Medications Sig/Amadeo Start time Last Medication Dose Route Stop Time Status Admin Albuterol Sulfate 3 ML TID 03/10 2200 AC 03/20 INH 0906 Carvedilol 3.125 MG BID 03/10 2200 AC 03/20 PO 0901 Docusate Sodium 100 MG DAILY PRN 03/16 1500 AC PO Escitalopram Oxalate 10 MG DAILY 03/10 1030 AC 03/20 PO 0901 Insulin Aspart 2 UNITS ONCE ONE 03/20 0245 DC 03/20 SC 03/20 0246 0307 Insulin Human Regular 0 TIDAC/HS 03/18 1200 AC 03/20 SC 0858 Ipratropium [place] 2.5 ML TID 03/10 2200 AC 03/20 INH 0906 Oxycodone/ 1 TAB Q6P PRN 03/10 1030 AC Acetaminophen PO Oxycodone/ 2 TAB Q6P PRN 03/10 1030 AC Acetaminophen PO Pantoprazole Sodium 40 MG BID 03/17 2200 AC 03/20 IV 0901 Prednisone 10 MG DAILY 03/21 1000 AC PO 03/22 1001 Prednisone 20 MG DAILY 03/19 1000 DC 03/20 PO 03/20 1001 0900 Senna 187 MG AT BEDTIME PRN 03/16 1500 AC 03/16 PO 1642 Vital Signs & I&O Last 24 Hrs of Vitals and I&O: Vital Signs Date Time Temp Pulse Resp B/P Pulse O2 O2 Flow FiO2 Ox Delivery Rate 03/20 0909 97 Nasal 2.0L Cannula 03/20 0901 68 110/68 03/20 0814 98.6 68 24 110/68 95 BIPAP 03/20 0800 Nasal 2.0L Cannula 03/20 0007 62 94 03/19 2323 98.0 65 24 116/54 95 BIPAP 30% 03/19 2149 67 98 03/19 2130 98.2 71 20 118/60 03/19 1835 94 Nasal 2.0L Cannula 03/19 1530 98.2 71 20 118/60 100 Nasal 2.0L Cannula 03/19 1400 93 Nasal 2.0L Cannula 03/19 1041 80 106/70 Intake & Output 03/20 1600 03/20 0800 03/20 0000 Intake Total 250 Output Total Balance 250 Intake, Oral 250 Number 4 Bowel Movements Exam General Appearance: alert, awake, comfortable, chronically ill Head: atraumatic, normal appearance Neck: supple Respiratory: bilateral ronchi and scattered crackles Cardiovascular: regular rate/rhythm Abdomen: obese, soft, non-tender Extremities: no edema Skin: intact, normal color, warm/dry Results Last 24 Hrs of Lab Results: Laboratory Tests 03/20/16 0650: Anion Gap 2 L, Estimated GFR 42 L, Glucose 207 H, Calcium 7.9 L, Phosphorus 3.4, Magnesium 2.7 H, Total Bilirubin 0.5, AST 17, ALT 44, Albumin 2.3 L, CBC w Diff NO MAN DIFF REQ, RBC 2.51 L, MCV 88.9, MCH 29.6, RDW 16.1 H, MPV 9.4, Gran % 89.7 H, Lymphocytes % 5.2 L, Monocytes % 4.9, Eosinophils % 0.2, Basophils % 0 L, Absolute Granulocytes 21.8 H, Absolute Lymphocytes 1.3, Absolute Monocytes 1.2 H, Absolute Eosinophils 0, Absolute Basophils 0, PUBS MCHC 33.3 Impression/Plan Impression/Plan Impression/Plan: 1. Acute on chronic hypercarbic respiratory failure, severe COPD. 2. History of congestive heart disease. 3. Acute blood loss anemia, with decreased H&H. Recommendations: * Continue prednisone taper. * Transfuse 1 unit of packed red blood cells if repeat H&H is still down after repeat labs. * Follow up GI recommendations. * Maintain the patient on aspiration precautions. * Strict I's and O's, maintain negative fluid balance as able. * Continue TRC and nebs. * Continue nocturnal Bipap and PRN. * Follow up cardiology recommendations. * Continue bowel regimen. * Continue IV Pantoprazole. * Avoid anticoagulation - alps for DVT prophylaxis.
--- NOTE | 2016-03-20 12:03 | PN- Att Addend ---
Attending Addendum Attending Brief Note Patient seen and examined. Transferred out of the ICU yesterday. Alert and oriented 3. Not in acute distress Complains of mild malaise. Denies chest pain or shortness of breath at rest. Denies palpitations. Denies nausea or vomiting. Denies abdominal pain. No rectal bleeding reported by nursing staff. Nursing staff reported that patient has been a hoer lift since admission. Vital Signs Date Time Temp Pulse Resp B/P Pulse O2 O2 Flow FiO2 Ox Delivery Rate 03/20 0909 97 Nasal 2.0L Cannula 03/20 0901 68 110/68 03/20 0814 98.6 68 24 110/68 95 BIPAP 03/20 0800 Nasal 2.0L Cannula 03/20 0007 62 94 03/19 2323 98.0 65 24 116/54 95 BIPAP 30% 03/19 2149 67 98 03/19 2130 98.2 71 20 118/60 03/19 1835 94 Nasal 2.0L Cannula 03/19 1530 98.2 71 20 118/60 100 Nasal 2.0L Cannula 03/19 1400 93 Nasal 2.0L Cannula Gen. appearance: Obese, not in respiratory distress Heart: S1-S2 regular Lungs: Fair entry bilaterally, clear to auscultation Abdomen: Obese, soft, nontender with normal bowel sounds Extremities: 1+ bilateral pedal edema Neurologic: Alert and oriented 3. Laboratory Tests 03/20/16 0650: Anion Gap 2 L, Estimated GFR 42 L, Glucose 207 H, Calcium 7.9 L, Phosphorus 3.4, Magnesium 2.7 H, Total Bilirubin 0.5, AST 17, ALT 44, Albumin 2.3 L, CBC w Diff NO MAN DIFF REQ, RBC 2.51 L, MCV 88.9, MCH 29.6, RDW 16.1 H, MPV 9.4, Gran % 89.7 H, Lymphocytes % 5.2 L, Monocytes % 4.9, Eosinophils % 0.2, Basophils % 0 L, Absolute Granulocytes 21.8 H, Absolute Lymphocytes 1.3, Absolute Monocytes 1.2 H, Absolute Eosinophils 0, Absolute Basophils 0, PUBS MCHC 33.3 Problems: 1. Acute on chronic hypercapnic respiratory failure secondary to COPD exacerbation. History of obstructive sleep apnea, obesity hypoventilation syndrome 2. Acute blood loss anemia 3. Demand ischemia 4. Chronic kidney disease 5. Coronary artery disease status post previous MT and CABG. 6. Leukocytosis Plan: -Hemoglobin level is trending downwards today. No gross evidence of bleeding. -Repeat H&H this morning. If he is indeed trending downwards, transfuse 1 unit of PRBC. -Please follow-up with the gastroenterology service regarding his ongoing hemoglobin drop. Also follow-up regarding timing for reinitiation of antiplatelet therapy. Continue twice daily PPI therapy intravenously -WBC is trending down slowly. No fever to suggest an ongoing infectious process. -Patient is currently on Coreg only. Blood pressure is in the low 100s. We'll reinstitute his other antihypertensive medications if his blood pressure improves and after consultation with the cardiology service -Continue bronchodilator therapy, continue prednisone taper per pulmonology recommendations.
[2016-03-20 15:30] VITALS: BP 122/52
--- NOTE | 2016-03-20 16:53 | PN- Cardiology ---
Subjective Subjective: Patient is in bed and resting comfortably. He is watching a hockey game. Denies any chest pain or dyspnea. Objective Vital Signs and I&Os Vital Signs Date Time Temp Pulse Resp B/P Pulse O2 O2 Flow FiO2 Ox Delivery Rate 03/20 0909 97 Nasal 2.0L Cannula 03/20 0901 68 110/68 03/20 0814 98.6 68 24 110/68 95 BIPAP 03/20 0800 Nasal 2.0L Cannula 03/20 0007 62 94 03/19 2323 98.0 65 24 116/54 95 BIPAP 30% 03/19 2149 67 98 03/19 2130 98.2 71 20 118/60 03/19 1835 94 Nasal 2.0L Cannula Intake & Output 03/20 1600 03/20 0800 03/20 0000 03/19 1600 03/19 0800 03/19 0000 Intake Total 1430 250 240 0 960 Output Total Balance 1430 250 240 0 960 Intake, Blood 200 350 Product Intake, IV 30 0 50 Intake, Oral 1200 250 240 0 560 Number 4 0 0 Bowel Movements Patient 232 lb 225 lb Weight Physical Exam: General: no apparent distress. On nasal cannula. Eyes: No obvious scleral icterus. HEENT: No jugular venous distention or abnormal jugular venous pulsations. Cardiovascular: Normal intensity S1/S2. Regular. Respiratory: Mildly decreased air entry bilaterally. Musculoskeletal: No clubbing or cyanosis noted, trace lower extremity edema Skin: Warm Current Medications: Current Medications Sig/Amadeo Start time Last Medication Dose Route Stop Time Status Admin Albuterol Sulfate 3 ML TID 03/10 2199 AC 03/20 INH 1314 Carvedilol 3.125 MG BID 03/10 220 AC 03/20 PO 0901 Docusate Sodium 100 MG DAILY PRN 03/16 1500 AC PO Escitalopram Oxalate 10 MG DAILY 03/10 1030 AC 03/20 PO 0901 Insulin Aspart 2 UNITS ONCE ONE 03/20 0245 DC 03/20 SC 03/20 0246 0307 Insulin Human Regular 0 TIDAC/HS 03/18 1200 AC 03/20 SC 1238 Ipratropium [place] 2.5 ML TID 03/10 2200 AC 03/20 INH 1314 Oxycodone/ 1 TAB Q6P PRN 03/10 1030 AC Acetaminophen PO Oxycodone/ 2 TAB Q6P PRN 03/10 1030 AC Acetaminophen PO Pantoprazole Sodium 40 MG BID 03/17 2200 AC 03/20 IV 0901 Prednisone 10 MG DAILY 03/21 1000 AC PO 03/22 1001 Prednisone 20 MG DAILY 03/19 1000 DC 03/20 PO 03/20 1001 0900 Senna 187 MG AT BEDTIME PRN 03/16 1500 AC 03/16 PO 1642 Results Last 48 Hrs of Labs/Mics: Laboratory Tests 03/20/16 0650: Anion Gap 2 L, Estimated GFR 42 L, Glucose 207 H, Calcium 7.9 L, Phosphorus 3.4, Magnesium 2.7 H, Total Bilirubin 0.5, AST 17, ALT 44, Albumin 2.3 L, CBC w Diff NO MAN DIFF REQ, RBC 2.51 L, MCV 88.9, MCH 29.6, RDW 16.1 H, MPV 9.4, Gran % 89.7 H, Lymphocytes % 5.2 L, Monocytes % 4.9, Eosinophils % 0.2, Basophils % 0 L, Absolute Granulocytes 21.8 H, Absolute Lymphocytes 1.3, Absolute Monocytes 1.2 H, Absolute Eosinophils 0, Absolute Basophils 0, PUBS MCHC 33.3 03/19/16 0455: Anion Gap 7, Estimated GFR 35 L, Glucose 186 H, Calcium 7.9 L, Phosphorus 4.2 , Magnesium 2.6 H, Total Bilirubin 0.7, AST 13 L, ALT 44, Albumin 2.4 L, CBC w Diff MAN DIFF ORDERED, RBC 2.84 L, MCV 88.4, MCH 30.3, RDW 15.4 H, MPV 10.3, Gran % 88.8 H, Lymphocytes % 6.7 L, Monocytes % 4.3, Eosinophils % 0.2, Basophils % 0 L, Absolute Granulocytes 25.2 H, Absolute Lymphocytes 1.9, Absolute Monocytes 1.2 H, Absolute Eosinophils 0.1, Absolute Basophils 0, Platelet Estimate DECREASED, Polychromasia 1+, Hypochromic-Microcytic 2+, Poikilocytosis 2+, Anisocytosis 1+, PUBS MCHC 34.3 Recent Imaging Studies: Telemetry tracings were personally reviewed and shows sinus rhythm with occasional PVCs Assessment/Plan Assessment/Plan 1. Severe COPD with acute on chronic hypercarbic respiratory failure. 2. Blood loss anemia 3. Sleep apnea 4. CAD/CABG hx 5. Mild ischemic cardiomyopathy/CHF 6. Elevated troponins likely due to demand ischemia 7. CKD The patient appears to be resting comfortably. Continue the Coreg and continue to hold the ARB for now. Antiplatelet therapy is being held given the recurrent anemia. Follow-up GI recommendations. Telemetry shows occasional PVCs with no evidence of sustained arrhythmia. Can likely resume his low-dose Lasix. Toro Alfaro MD [facility] Continue telemetry? Yes
[2016-03-21 00:23] VITALS: BP 110/58
--- NOTE | 2016-03-21 07:59 | PN- Housestaff ---
NESTOR BARRETT,JAYLIN 03/21/16 0758: Subjective Follow-up For: Hypercapnic respiratory failure Tele-Events Since Last Visit: Some episodes of PVCs and PACs reported overnight however no sustained arrhythmia noted. Subjective: Patient seen and examined at bedside. Patient was receiving nebulizer therapy when examined. She denies any acute complaints such as chest pain, palpitation, increased dyspnea, fever, chills, cough, abdominal pain or dysuria. No acute overnight event reported by nursing staff Review of Systems Constitutional: Denies: see HPI. Objective Last 24 Hrs of Vital Signs/I&O Vital Signs Date Time Temp Pulse Resp B/P Pulse O2 O2 Flow FiO2 Ox Delivery Rate 03/21 0023 97.6 55 20 110/58 98 BIPAP 03/21 0016 56 96 03/21 0000 98 BIPAP 03/20 2238 58 98 03/20 1945 99 Nasal 2.0L Cannula 03/20 1530 97.7 67 20 122/52 98 Nasal 2.0L Cannula 03/20 0909 97 Nasal 2.0L Cannula 03/20 0901 68 110/68 03/20 0814 98.6 68 24 110/68 95 BIPAP 03/20 0800 Nasal 2.0L Cannula Intake & Output 03/21 0800 03/21 0000 03/20 1600 Intake Total 750 1430 Output Total Balance 750 1430 Intake, Blood 140 200 Product Intake, IV 10 30 Intake, Oral 600 1200 Patient 105.347 kg Weight Physical Exam General Appearance: Alert, Oriented X3, Cooperative Other Physical Findings: Skin: No Rashes, No Breakdown HEENT: Atraumatic, PERRLA, EOMI Neck: Supple, No JVD Cardiovascular: Regular Rate, Normal S1, Normal S2 Lungs: Clear to Auscultation, decrease in entry bilaterally Abdomen: Soft, No Tenderness, distended Neurological: Normal Speech Extremities: No Clubbing, No Cyanosis, No Edema Vascular: Normal Pulses, Pulses Symmetrical Current Medications: Current Medications Sig/Amadeo Start time Last Medication Dose Route Stop Time Status Admin Albuterol Sulfate 3 ML TID 03/10 2199 AC 03/20 INH 1944 Carvedilol 3.125 MG BID 03/10 2199 AC 03/20 PO 223 Docusate Sodium 100 MG DAILY PRN 03/16 1500 AC PO Escitalopram Oxalate 10 MG DAILY 03/10 1030 AC 03/20 PO 0901 Furosemide 20 MG DAILY 03/21 1000 AC PO Insulin Human Regular 0 TIDAC/HS 03/18 1200 AC 03/20 SC 2233 Ipratropium [place] 2.5 ML TID 03/10 2200 AC 03/20 INH 1945 Oxycodone/ 1 TAB Q6P PRN 03/10 1030 AC Acetaminophen PO Oxycodone/ 2 TAB Q6P PRN 03/10 1030 AC Acetaminophen PO Pantoprazole Sodium 40 MG BID 03/17 2200 AC 03/20 IV 2233 Patient Medication 1 UNIT ONE NR 03/20 1745 DC Teaching ED 03/20 1800 Prednisone 10 MG DAILY 03/21 1000 AC PO 03/22 1001 Prednisone 20 MG DAILY 03/19 1000 DC 03/20 PO 03/20 1001 0900 Senna 187 MG AT BEDTIME PRN 03/16 1500 AC 03/16 PO 1642 Last 24 Hrs of Lab/Sumanth Results Last 24 Hrs of Labs/Mics: Laboratory Tests 03/20/16 1800: CBC w Diff Cancelled, WBC Cancelled, RBC Cancelled, Hgb Cancelled, Hct Cancelled , MCV Cancelled, MCH Cancelled, RDW Cancelled, Plt Count Cancelled, MPV Cancelled, PUBS MCHC Cancelled Assessment/Plan Assessment: This is 76-year-old male with past medical history significant for COPD on 2 L home O2, JUANITO on nocturnal CPAP, hypertension, hyperlipidemia, type 2 diabetes mellitus, CAD with AR status post CABG, CVA, CK D stage III, recently admitted for observation 2/2 lethargy at [facility] and discharged to [facility] at [place]. Patient presented with lethargy and was found to be in acute hypercapnic respiratory failure. Patient was admitted to ICU was also intubated and extubated on 03/16/2019. Patient was also found to have upper GI duodenal ulcer and has received multiple PRBC transfusion to maintain his H&H. PLAN Acute and chronic respiratory failure in setting of severe COPD : Patient was extubated on 03/16/2016. He tolerated the procedure well. He is now back to his 2 L nasal cannula baseline and satting in the high 90s. He still does require BiPAP at night. * Will continue nocturnal BiPAP CAD Initially cardiac medications including aspirin, plavix, and beta benigno were held on 03/11/2016. But after speaking with Dr. Negrete staff on 03/15/2016 we resumed baby aspirin. Her, aspirin was stopped again on March 16. Will await cardiology and GI recommendation on when to restart patient antiplatelet therapy. Hematology: Pt has gotten a total of 6u pRBC txfusion during this admission for acute blood loss. Goal is H/H 8 & 24. Today we got repeat H/h and pt went form 8.4--> 8.0. Initially we had transfused 3 unites yesterday. today his Hb is 8.6 * Con't monitor H/H and transfuse as necessary * Hb at 9.4 GI: s/p post EGD 3 clips placement on 3 duodenal clean-based ulcers. Status post 1 transfusion of PRBC yesterday * Hemoglobin stable at 9.4, and continue to trend * Will monitor for any acute bleeding and contact GI Nephro: Patient has CK D stage III with creatinine 1.9 ( higher than baseline) today. We will avoid nephrotoxic medications and continue to monitor Endocrine: Patient has history of diabetes mellitus. A1c measured during this admission at 6.3. T4 within normal limits TSH low. A.m. cortisol 14; Normal limits. * Outpatient follow-up on TSH * Diabetic diet * Resume sliding scale * FS Problem List: 1. hypercarbic respiratory failur Pain Ratin Pain Location: NONE Pain Goal: Remain pain free Pain Plan: APAP FOR MILD PAIN OXYCODONE FOR MODERATE PAIN MORPHINE FOR SEVERE PAIN Tomorrow's Labs & Rationales: ANJALI MARTINEZ MD 03/21/16 1016: Attending Review Statement Attending Statement Attending MD Statement: examined this patient, discuss w/resident/PA/INFORMATION MANAGEMENT OFFICER, discussed with family, reviewed EMR data (avail), discussed with nursing, discussed with case mgmt Attending Assessment/Plan: 76-year-old male transferred from the ICU after being treated for acute blood loss anemia with a duodenal ulcer, acute on chronic hypercapnic respiratory failure with a COPD exacerbation and a demand ischemia in that setting. The active issue now is that his hemoglobin. Yesterday was 7.4 and over the hospital course has gotten a total of 7 units of blood. His aspirin and Plavix is on hold while the issue of bleeding is being clarified and we have a message in to his outpatient fuel tank sealer and tester office as to whether he really needs this. Apparently he did have stents but did have a bypass. We are titrating his oxygen he is on 2 L now which is what he takes at home with BiPAP at night. With talking to GI about any active intervention regarding his H&H and will follow. is on hold while the issue of bleeding is being clarified and we have a message in to his outpatient fuel tank sealer and tester office as to whether he really needs this. Apparently he did have stents but did have a bypass. We are titrating his oxygen he is on 2 L now which is what he takes at home with BiPAP at night. With talking to GI about any active intervention regarding his H&H and will follow.
[2016-03-21 08:24] VITALS: BP 128/62
[2016-03-21 09:55] LABS: ABSOLUTE BASOPHIL COUNT 0 /CUMM (0.0-0.2); BASOPHIL % 0 % (0.0-2.0)
[2016-03-21 09:58] LABS: ABSOLUTE EOSINOPHIL COUNT 0.1 /CUMM (0.0-0.7); ABSOLUTE GRANULOCYTE CT 19.1 /CUMM (1.4-6.5); ABSOLUTE LYMPH COUNT 2.5 /CUMM (1.2-3.4); ABSOLUTE MONOCYTE COUNT 1.1 /CUMM (0.10-0.60); EOSINOPHIL % 0.6 % (0-5); MEAN CORPUSCULAR HGB 29.2 PG (27.0-31.0); MEAN CORPUSCULAR HGB CONC 32.9 G/DL (33.0-37.0); MEAN CORPUSCULAR VOLUME 88.7 FL (80.0-94.0); MEAN PLATELET VOLUME 9.5 FL (7.4-10.4); PLATELET COUNT 152 /CUMM (130-400); WHITE BLOOD CELL COUNT 22.9 /CUMM (4.8-10.8)
[2016-03-21 10:00] LABS: HEMATOCRIT 28.6 % (42-52); RED BLOOD CELL CT 3.23 /CUMM (4.70-6.10)
[2016-03-21 10:09] LABS: GRANULOCYTE % 83.4 % (42.2-75.2)
--- NOTE | 2016-03-21 10:37 | Transfer of Care Summary ---
Hospital Course Course Hospital Course: This is 76-year-old male with past medical history significant for COPD on 2 L home O2, JUANITO on nocturnal CPAP, hypertension, hyperlipidemia, type 2 diabetes mellitus, CAD with NC status post CABG, CVA, CK D stage III, recently admitted for observation 2/2 lethargy at [facility] and discharged to [facility] at [place]. He presented to w/ CC of lethargy. Upon ED workup he was found to have acute on chronic hypercarbic and hypoxemic respiratory failure secondary to JUANITO and COPD exacerbation. He was placed on BiPAP, IV azithromycin and steroids. Initially did not improve, was transferred to ICU for further aggressive management and closer monitoring. Of note, patient had troponins of 0.33 in ED, which were then trended down; no intervention started; no heparin. In ICU his respiratory status improved back to his baseline 2L NC during the day but his course was complicated by UGI bleed. He had to be intubated for EGD; remained intubated for 3 days. After extubation returned back to his baseline respiratory status but he continues to drop his crit. Of note, there is dissention regarding pros and cons of anticoagulation of this gentleman. I called his facsimile operator regarding use of plavix; unsure why he is on it. He does not appear to have any stents and last CABG done 2010. PLAN Respiratory: IMPROVED. Patient was extubated on 03/16/2016. He tolerated the procedure well. He is now back to his 2 L nasal cannula baseline and satting in the high 90s. He still does require BiPAP at night. * DC all inhalers * If worsened check ABG * Continue prednisone taper * Stop his home theophylline * Aspiration precautions * BiPAP at night; Ensure he has BiPAP at night whenever he is d/c ID: On admission, patient growing greater than 100,000 units of enterococcus in his urine. Seems to be main colonization more than infection. He had no fever or symptoms. However, [place] [id number]); but pt was on steroids. He got one week of abx. * Pt got 7 days of abx initially with augmentin and then to Unasyn. STOP all abx * Pt on condom cath * Monitor patient clinically * Trend white count and ensure that he has no other source of infection Cardiovascular: Initially cardiac medications including aspirin, plavix, and beta benigno were held on 03/11/2016. But after speaking with Dr. Negrete staff on 03/15/2016 we resumed baby aspirin. However pt continues to have GI bleed. We dc aspirin, hold off on Plavix, and held off on subcutaneous heparin for DVT prophylaxis. Need to speak with cardiology regarding their recs on permanent cessation of antiplatelet therapy. Patient has significant history of type 2 diabetes mellitus, hypertension, and NC status post CABG. Echo suggested EF of 40. During this admission patient had demand-related troponin, highest reading at 0.33, subsequently trended downward. No EKG changes. Goal is to keep H&H at 8 and 24. Today at 7.7 from 9.9; will transfuse one unit pRBC. * Thank you cardiology consult * Continue I's and O's * Currently holding home diuretics per cardiology recommendation. * cholesterol panel showed total cholesterol 113, LDL 51, HDL 40. Hematology: Pt has gotten a total of 5u pRBC txfusion during this admission for acute blood loss. Goal is H/H 8 & 24. Check daily CBC in AM. * Con't monitor H/H and transfuse as necessary * Repeat cbc (Hb at 8.0) GI: Pt went for EGD on 03/12 in AM for an episode of GI bleed and subsequent decrease in H/H . EGD showed non-bleeding duodenal ulcers. Now pt continues to have GI bleed but is poor candidate for scope as he would have to be intubated again. * Hold all antiplatelets and anticoagulants * Continue Alps * PPI 40 IVQ12 * Continue to guaiac all stool Musculoskeletal: Stable from this perspective will continue to monitor * PT Nephro: Patient has CK D stage III. We will avoid nephrotoxic medications and continue to monitor Endocrine: Patient has history of diabetes mellitus. A1c measured during this admission at 6.3. T4 within normal limits TSH low. A.m. cortisol 14; Normal limits. * Outpatient follow-up on TSH * Diabetic diet * Resume sliding scale * FS FULL CODE DIET TOLERATED ALPS FOR PPX Assessment/Plan: SEE ABOVE
--- NOTE | 2016-03-21 11:38 | PN- Pulmonary ---
Subjective HPI/Critical Care Issues: Patient seen and examined. He status post transfusion yesterday. Hemoglobin today is 9.4 and tolerating diet. No other events comfortable overnight and uses BiPAP. Objective Current Medications: Current Medications Sig/Amadeo Start time Last Medication Dose Route Stop Time Status Admin Albuterol Sulfate 3 ML TID 03/10 2200 AC 03/21 INH 0832 Carvedilol 3.125 MG BID 03/10 2200 AC 03/21 PO 0905 Docusate Sodium 100 MG DAILY PRN 03/16 1500 AC PO Escitalopram Oxalate 10 MG DAILY 03/10 1030 AC 03/21 PO 0905 Furosemide 20 MG DAILY 03/21 1000 AC 03/21 PO 0905 Insulin Human Regular 0 TIDAC/HS 03/18 1200 AC 03/21 SC 0806 Ipratropium [place] 2.5 ML TID 03/10 2200 AC 03/21 INH 0832 Oxycodone/ 1 TAB Q6P PRN 03/10 1030 AC Acetaminophen PO Oxycodone/ 2 TAB Q6P PRN 03/10 1030 AC Acetaminophen PO Pantoprazole Sodium 40 MG BID 03/170 AC 03/21 IV 0947 Patient Medication 1 UNIT ONE NR 03/20 1745 PA Teaching ED 03/20 1800 Prednisone 10 MG DAILY 03/21 1000 AC 03/21 PO 03/22 1001 0905 Senna 187 MG AT BEDTIME PRN 03/16 1500 AC 03/16 PO 1642 Vital Signs & I&O Last 24 Hrs of Vitals and I&O: Vital Signs Date Time Temp Pulse Resp B/P Pulse O2 O2 Flow FiO2 Ox Delivery Rate 03/21 0905 52 128/62 03/21 0900 95 Nasal 2.0L Cannula 03/21 0824 97.4 52 20 128/62 96 BIPAP 03/21 0800 Nasal 2.0L Cannula 03/21 0023 97.6 55 20 110/58 98 BIPAP 03/21 0016 56 96 03/21 0000 98 BIPAP 03/20 2238 58 98 03/20 1945 99 Nasal 2.0L Cannula 03/20 1530 97.7 67 20 122/52 98 Nasal 2.0L Cannula Intake & Output 03/21 1600 03/21 0800 03/21 0000 Intake Total 240 750 Output Total Balance 240 750 Intake, Blood 140 Product Intake, IV 10 Intake, Oral 240 600 Exam Other Physical Findings: gen - awake and alert heent - poor dentition cvs s1, s2 lungs rare rhonchi, transmitted abd soft bs+ ext without edema Results Last 24 Hrs of Lab Results: Laboratory Tests 03/21/16 0840: Anion Gap 4 L, Estimated GFR 49 L, BUN/Creatinine Ratio 25.7 H, CBC w Diff NO MAN DIFF REQ, RBC 3.23 L, MCV 88.7, MCH 29.2, RDW 16.0 H, MPV 9.5, Gran % 83.4 H, Lymphocytes % 11.1 L, Monocytes % 4.9, Eosinophils % 0.6, Basophils % 0 L, Absolute Granulocytes 19.1 H, Absolute Lymphocytes 2.5, Absolute Monocytes 1.1 H, Absolute Eosinophils 0.1, Absolute Basophils 0, PUBS MCHC 32.9 L 03/20/16 1800: CBC w Diff Cancelled, WBC Cancelled, RBC Cancelled, Hgb Cancelled, Hct Cancelled , MCV Cancelled, MCH Cancelled, RDW Cancelled, Plt Count Cancelled, MPV Cancelled, PUBS MCHC Cancelled Impression/Plan Impression/Plan Impression/Plan: Impression 76-year-old man with hypercarbic respiratory failure. History of congestive heart disease. Resolved acute blood loss anemia. Resolved respiratory failure. Plan - Nocturnal BiPAP and as needed - Leukocytosis is improving - prednisone taper - Ins and outs and diuresis as needed to keep him that even to negative fluid balance - Aspiration precautions - [facility] nebs - f/u cardiology recommendations
[2016-03-21 15:28] VITALS: BP 108/56
[2016-03-21 22:35] VITALS: BP 118/62
--- NOTE | 2016-03-22 07:17 | PN- Housestaff ---
TERENCE BARRETT,DONITA 03/22/16 0717: Subjective Follow-up For: Hypercapnic respiratory failure Complaints: no complaints Tele-Events Since Last Visit: Episodes of PACs reported overnight Subjective: Patient seen, examined at the bedside. He denies of any chest pain, palpitation, fevers, chills, cough, abdominal pain, dysuria Review of Systems Constitutional: Denies: see HPI. Objective Last 24 Hrs of Vital Signs/I&O Temperature 98.0, pulse 64, respiratory rate 20, blood pressure 120/60 Physical Exam General Appearance: Alert, Oriented X3, Cooperative, No Acute Distress Skin: No Rashes, No Breakdown, No Significant Lesion HEENT: Atraumatic, PERRLA, EOMI Neck: Supple, No JVD Cardiovascular: Regular Rate, Normal S1, Normal S2, No Murmurs Lungs: Clear to Auscultation Abdomen: Soft, No Tenderness Neurological: Normal Speech Extremities: No Clubbing, No Cyanosis, No Edema, Normal Pulses Assessment/Plan Assessment: This is 76-year-old male with past medical history significant for COPD on 2 L home O2, JUANITO on nocturnal CPAP, hypertension, hyperlipidemia, type 2 diabetes mellitus, CAD with NC status post CABG, CVA, CK D stage III, recently admitted for observation 2/ lethargy at [facility] and discharged to [facility] at [place]. Patient presented with lethargy and was found to be in acute hypercapnic respiratory failure. Patient was admitted to ICU was also intubated and extubated on 03/16/2019. Patient was also found to have upper GI duodenal ulcer and has received multiple PRBC transfusion to maintain his H&H. PLAN Discharge today Acute and chronic respiratory failure in setting of severe COPD : Patient was extubated on 03/16/2016. He tolerated the procedure well. He is now back to his 2 L nasal cannula baseline and satting in the high 90s. He still does require BiPAP at night. * Will continue nocturnal BiPAP CAD Initially cardiac medications including aspirin, plavix, and beta benigno were held on 03/11/2016. But after speaking with Dr. Negrete staff on 03/15/2016 we resumed baby aspirin. Her, aspirin was stopped again on March 16. Will await cardiology and GI recommendation on when to restart patient antiplatelet therapy. Hematology: Pt has gotten a total of 6u pRBC txfusion during this admission for acute blood loss. Goal is H/H 8 & 24. Today we got repeat H/h and pt went form 8.4--> 8.0. Initially we had transfused 3 unites yesterday. today his Hb is 8.6 * Con't monitor H/H and transfuse as necessary * Hb at 9.4 GI: s/p post EGD 3 clips placement on 3 duodenal clean-based ulcers. Status post 1 transfusion of PRBC yesterday * Hemoglobin stable at 9.4, and continue to trend * Will monitor for any acute bleeding and contact GI Nephro: Patient has CK D stage III with creatinine 1.9 ( higher than baseline) today. We will avoid nephrotoxic medications and continue to monitor Endocrine: Patient has history of diabetes mellitus. A1c measured during this admission at 6.3. T4 within normal limits TSH low. A.m. cortisol 14; Normal limits. * Outpatient follow-up on TSH * Diabetic diet * Resume sliding scale * FS Problem List: 1. Acute on chronic respiratory failure with hypoxia and hypercapnia Pain Ratin Pain Location: none Pain Goal: Remain pain free Pain Plan: [id number] Tomorrow's Labs & Rationales: none ANJALI SHAIKH MD 03/22/16 1020: Attending MD Review Statement Attending Statement Attending MD Statement: examined this patient, discuss w/resident/PA/PATENT SOLICITOR, agreed w/resident/PA/PATENT SOLICITOR, reviewed EMR data (avail), discussed with nursing, discussed with case mgmt, reviewed images Attending Assessment/Plan: This is a complex 76-year-old male. He has a history of diabetes, CKD, coronary artery disease status post bypass in 2010, COPD and chronic systolic heart failure with the EF showing globally reduced systolic function and EF of 40-50%. His active issues over here have been acute on chronic hypoxemic respiratory failure, acute blood loss anemia with a duodenal ulcer and demand ischemia. At this point we have spoken to Dr. Negrete his outpatient geotechnical department manager who says that he is comfortable with the patient being off the dual antiplatelet therapy given the active bleeding. His last bypass was in 2010 and he's not had stents after that. We also clarified with Dr. Haddad from GI. Given the fact that he had active bleeding from his ulcers , no antiplatelet agents for 1 month and after that he is going to start on an enteric-coated baby aspirin with close outpatient follow-up and a PPI indefinitely. He will need a follow-up CBC and a BMP in a few days to follow-up on his renal function and to follow-up on his chronic anemia. TTS coordinating DC was 35 minutes
[2016-03-22 08:08] LABS: ABSOLUTE BASOPHIL COUNT 0 /CUMM (0.0-0.2); ABSOLUTE EOSINOPHIL COUNT 0.3 /CUMM (0.0-0.7); ABSOLUTE GRANULOCYTE CT 15.2 /CUMM (1.4-6.5); ABSOLUTE LYMPH COUNT 2.7 /CUMM (1.2-3.4); ABSOLUTE MONOCYTE COUNT 1.1 /CUMM (0.10-0.60); BASOPHIL % 0.2 % (0.0-2.0); EOSINOPHIL % 1.3 % (0-5); GRANULOCYTE % 78.7 % (42.2-75.2); HEMATOCRIT 26.1 % (42-52); MEAN CORPUSCULAR HGB 29.6 PG (27.0-31.0); MEAN CORPUSCULAR HGB CONC 33.1 G/DL (33.0-37.0); MEAN CORPUSCULAR VOLUME 89.5 FL (80.0-94.0); MEAN PLATELET VOLUME 9.1 FL (7.4-10.4); PLATELET COUNT 146 /CUMM (130-400); RBC DISTRIBUTION WIDTH 15.6 % (11.5-14.5); RED BLOOD CELL CT 2.92 /CUMM (4.70-6.10); WHITE BLOOD CELL COUNT 19.3 /CUMM (4.8-10.8)
[2016-03-22 08:28] VITALS: BP 120/60
--- NOTE | 2016-03-22 09:31 | Event Note ---
Event Note Event Note: Talked to Dr. Negrete today about the patient's current condition and the status of his anticoagulation. According to him, the patient had been put on Aspirin and Plavix post his CABG in 2010. He does not need to be on DAPT for now, if he had a GI bleed. He also wants us to get GI's recommendations regarding when the antiplatelet therapy can be started. He will also follow up with the patient after discharge.
--- NOTE | 2016-03-22 09:41 | Discharge Summary ---
Visit Information Visit Dates Admission Date: 03/09/16 Discharge Date: 03/22/2016 Hospital Course Course Attending Physician: NEEL BARRETT,ANJALI Hamilton Primary Care Physician: ELLA GARCIA MD Other Care Providers: Cardiology, Dr. Italo Negrete [place] Consulting Request: 1 Consulting Specialty: Cardiology Consulting Physician: Dr. Kaushik Crouch Consulting Request: 2 Consulting Specialty: Gastroenterology Consulting Physician: Dr. Chantel Motley Consulting Request: 3 Consulting Specialty: Pulmonary Disease Consulting Physician: Dr. Tierney [facility] Course: Mr David is a 76 y/o M with PMHx of COPD on 2 L of oxygen at home, obstructive sleep apnea on nocturnal CPAP, HFrEF, HTN, HLD, T2DM, CAD c/b [place] s/p CABG in 2010, CVA and CKD stage 3B, recently admitted under observation to [facility] for respiratory failure and discharged to [facility] at [place] few days prior to current presentation, who presented with lethargy.The morning of current presentation, patient was lethargic and unarousable by verbal commands and soft sternal rub. His blood sugar was checked and came back at 53. He was given orange juice and his morning meal with subsequent improvement of his sugar to > 100. He remained lethargic throughout the day and his oxygen saturations dropped. He was given his scheduled breathing treatments and placed on low pressure BiPAP with some improvement in his hypoxia. Vitals: Afebrile, HR 60-70's, BP 117/57, sats 98% on FiO2 30%. Exam: Obese male, lethargic, arousable to verbal stimuli, able to follow few commands. Chest b/l reduced air entry. Labs: WBC 13.5, H/H 8.5/26, bicarb 37, BUN 40, creat 1.6 (baseline), trop 0.33, proBNP 6190, AB.32/72/83/36. CXR: enlarged cardiac silhouette, no pulmonary edema or consolidation. EKG: SR with IVCD (P-waves noted, not Afib). Echo (2016): EF 30%. He was admitted to the ICU for management of respiratory symptoms. he was in the ICU from 03/09 nto 03/20 and was then transferred to the telemetry floor, from where he was discharged. Problem List: 1) Acute Hypoxic Hypercarbic Respiratory Failure in the setting of COPD and Obstructive Sleep Apnea: Patient was started on IV steroids (Solumedrol 40 mg IV Q8) and IV Azithromycin along with being maintained on BiPAP. Repeat ABG was 7.30/67/75/33 on FiO2 30%, RR 20, I/E 16/4. Pulmonology consult was placed. BiPAP was resumed at 20/6. His course in the ICU was complicated by EGD for UGIB requiring intubation. He remained intubated for 3 days and later im proved to his baseline of 2.0L via NC. He was started on a tapering dose of prednisone, which finished the day of discharge. He is to be maintained on BiPAP nocturnally. 2) Elevated troponin 2/2 demand ischemia: His initial troponins were elevated and this was thought to be secondary to demand ischemia, as the patient did not have any symptoms and the EKG did not have any changes. ECHO was repeated, which showed improved overall left ventricular function at an EF of 45%. As the patient had a GI bleed, he was maintained off his DAPT. He was intermittently put back on Aspirin, but this was later discontinued as his H/H began to drop. We did get in touch with Dr. Negrete (his dye blender), regarding stopping DAPT. He was of the opinion that is was safe to do so, as the patient had been on DAPT since his CABG in 2010. He is to follow up with Dr. Negrete as an outpatient, regarding resumption of his antiplatelet therapy. He also had runs of ectopy with multiform and monomorphic nonsustained VT. This was evaluated by cardiology and the patient was continued on his beta benigno. 3) GI bleeding 2/2 duodenal ulceration seen on endoscopy: On 03/11, he was found to have melena with H/H of 6.7/20.6. GI consult was placed. He was transfused with 2 units of PRBC. Considering his history of CAD s /p CABG, goal Hgb was maintained above 8g/dl. Aspirin and Plavix were held, IV PPI was started. He underwent an Upper GI endoscopy on 03/12, but required transition from Bi PAP to intubation considering his multiple comorbidities, and was found to have 3 distinct clean based DU, all friable, without any clot or visible vessel. OGT was placed as the patient was intubated. He had another drop in H/H on 03/17 for which he was transfused and a similar drop on 03/21 requiring 1 unit PRBC. There was no further procedures performed considering risk of reintubation. Per GI, restart enteric coated baby aspirin in 1 month and the PPI is to be continued indefinitely. 4) Enterococcal UTI vs colonization and Multifactorial Leukocytosis: On admission, the patient had >100,000 units of Enterococcus in his urine. As he was asymptomatic and, this was thought to be more of a colonization. He did get a total of 7 days of antibiotics ( Initially Augmentin, later changed to Unasyn) . His white count continued to be elevated, but this was thought to be secondary to his current steroid usage. He will need a repeat CBC one week after discharge , as he has finished his course of tapering prednisone on the day of discharge. 5) RICHARD on CKD: His creatinine continued to be elevated during the course of the hospitalization. Lasix, Losartan, Spironolactone were all held initially. Lasix and losartan were later restarted as the creatinine trended down. 6) Diabetes Mellitus: A1c measured during this admission at 6.3. He was continued on Sliding scale Novolog, while hospitalized. Due to the CKD with cre 1.4-1.6, we are stopping the Metformin and continuing the Glyburide alone. 7) HTN He was continued on his Coreg, while hospitalized. Other medications like diuretic, ARB and spironolactone were initially held as the patient continued to have rise in creatinine. After the patient was transferred to the telemetry floor, he was first restarted on his Lasix 20 mg QD and then his Losartan, on the day of discharge. His spironolactone continues to be held on discharge. He is to get a repeat BEP on Mar 28 pending which, other medications can be started as needed. 8) DVT PPx: Initially pharmacological and later mechanical 2/2 GI bleeding. 9) Code Status: Full Code This is a patient with several comorbidities requiring close monitoring. He also carries a high risk of readmission, considering his multiple comorbities. Complications: As above. Allergies: Coded Allergies: NO KNOWN ALLERGIES (04/17/15) Significant Procedures: EGD with clipping x 3 ([facility]) on 03/12/2016: Impression: *3 distinct clean-based DU, all friable, without any clot or visible vessel: 2 cm x 1 cm superficial DU at the floor of the duodenal bulb, as well as 2 contralateral, slightly deeper, post-bulbar DU, 6 mm and 8 mm, respectively- each successfully clipped with a total of 3 [employer] clips, all deploying in excellent location. Disposition Summary Disposition Principal Diagnosis: 1) Acute on chronic hypercarbic and hypoxemic respiratory failure secondary to JUANITO and COPD exacerbation 2) GI bleeding 2/2 Duodenal Ulcers x 3 seen on Endoscopy (03/12) Additional Diagnosis: HFrEF (Last ECHO done on 03/09/16 shows an EF of 40-45%) HTN HLD T2DM CAD c/b [place] s/p CABG in 2010 CVA CKD stage 3B Discharge Disposition: SNF Discharge Instructions General Discharge Information Code Status: Full Code Patient's Diet: Diabetic Heart Healthy Diet Patient's Activity: As tolerated Follow-Up Instructions/Appts: Please make an appointment to see: 1) Your PCP within one week from discharge 2) Your Plastic Surgeon within one week from discharge 3) Your Senior Software Engineer Analytics within one week from discharge. 4) Your Clinical Documentation Developer within one week from discharge. 5) No antiplatelet agents, NO NSAIDS 6) In one month can restart enteric coated baby aspirin alone and continue PPI indefinitely Patient needs to be on Nocturnal BiPAP. Please check a CBC and a BEP on MondayMar 28 . Laboratory Tests 03/22 0654 Chemistry Sodium (137 - 145 mmol/L) 130 L Potassium (3.5 - 5.1 mmol/L) 4.4 Chloride (98 - 107 mmol/L) 97 L Carbon Dioxide (22 - 30 mmol/L) 33 H Anion Gap (5 - 16) 0 L BUN (9 - 20 mg/dL) 30 H Creatinine (0.7 - 1.2 mg/dL) 1.4 H Estimated GFR (>60 ml/min) 49 L BUN/Creatinine Ratio (7 - 25 %) 21.4 Hematology CBC w Diff NO MAN DIFF REQ WBC (4.8 - 10.8 /CUMM) 19.3 H RBC (4.70 - 6.10 /CUMM) 2.92 L Hgb (14.0 - 18.0 G/DL) 8.7 L Hct (42 - 52 %) 26.1 L MCV (80.0 - 94.0 FL) 89.5 MCH (27.0 - 31.0 PG) 29.6 RDW (11.5 - 14.5 %) 15.6 H Plt Count (130 - 400 /CUMM) 146 MPV (7.4 - 10.4 FL) 9.1 Gran % (42.2 - 75.2 %) 78.7 H Lymphocytes % (20.5 - 51.1 %) 13.9 L Monocytes % (1.7 - 9.3 %) 5.9 Eosinophils % (0 - 5 %) 1.3 Basophils % (0.0 - 2.0 %) 0.2 Absolute Granulocytes (1.4 - 6.5 /CUMM) 15.2 H Absolute Lymphocytes (1.2 - 3.4 /CUMM) 2.7 Absolute Monocytes (0.10 - 0.60 /CUMM) 1.1 H Absolute Eosinophils (0.0 - 0.7 /CUMM) 0.3 Absolute Basophils (0.0 - 0.2 /CUMM) 0 PUBS MCHC (33.0 - 37.0 G/DL) 33.1 Medications at Discharge Discharge Medications: Stop taking the following medications: Ranitidine (Zantac) 150 MG TAB ORAL DAILY CLOPIDOGREL BISULFATE (Clopidogrel) 75 MG TAB ORAL DAILY Aspirin (Aspirin) 81 MG CTB ORAL DAILY Ferrous Sulfate (Ferrous Sulfate) 325 MG TAB ORAL DAILY Spironolactone (Aldactone) 25 MG TABLET ORAL DAILY Prednisone (Deltasone) 20 MG TABLET ORAL DAILY Days = 5 Azithromycin (Zithromax) 250 MG TABLET ORAL As Directed Qty = 6 Continue taking these medications: Metformin Hydrochloride (Metformin HCl) 500 MG TAB 1 Tablet ORAL TWICE DAILY Comments: DID NOT RECEIVE WHILE IN HOSPITAL Rosuvastatin Calcium (Crestor) 10 MG TAB 1 Tablet ORAL DAILY Comments: Last Taken: 06/28/15 Time: 5:00 PM RECEIVED LIPITOR WHILE IN HOSPITAL Carvedilol (Coreg) 6.25 MG TAB 1 Tablet ORAL TWICE DAILY Comments: Last Taken: 06/29/15 Time: 9:30 AM Tiotropium [place] (Spiriva) 18 MCG CAP 1 Capsule Inhale through mouth DAILY Comments: Last Taken: 06/29/15 Time: 9:30 AM Losartan Potassium (Losartan Potassium) 25 MG TABLET 25 Milligram ORAL DAILY Days = 30 Comments: Last Taken: 06/29/15 Time: 9:30 AM Furosemide (Furosemide) 20 MG TAB 1 Tablet ORAL DAILY Days = 30 Comments: Last Taken: 06/29/15 Time: 9:30 AM FLUTICASONE/SALMETEROL (Advair 250-50 Diskus) 1 DSK DSK 1 PUFF Inhale through mouth TWICE DAILY Days = 30 Comments: Last Taken: 06/29/15 Time: 9:30 AM RECEIVED SYMBICORT INHALER WHILE IN HOSPITAL Glyburide (Glyburide) 5 MG TAB 1 Tablet ORAL TWICE DAILY Days = 30 Comments: DID NOT RECEIVE WHILE IN HOSPITAL Theophylline Anhydrous (Sohail-24) 100 MG CAP.ER.24H 1 Capsule ORAL DAILY Comments: PER PT MED LIST Escitalopram Oxalate (Escitalopram Oxalate) 10 MG TABLET 1 Tablet ORAL DAILY Qty = 30 Comments: PER PT MED LIST Ipratropium/Albuterol Sulfate (Iprat-Albut 0.5-3(2.5) MG/3 Ml) 3 ML AMPUL.NEB 1 Amp Inhale through mouth THREE TIMES DAILY Comments: PER PT MED LIST Albuterol Sulfate (Proair Hfa) 8.5 GM HFA.AER.AD 2-4 Inhalation Inhale through mouth EVERY SIX HOURS NEEDED as needed for ASTHMA Qty = 1 Comments: Last Taken: 03/22/16 Time: 12PM Start taking the following new medications: Pantoprazole Sodium (Protonix) 40 MG TABLET.DR 1 Tablet ORAL DAILY Qty = 30 No Refills Copies To: LYNDA BARRETT,JOSE MOTLEY MD,CHANTEL Arnett; FELIZ BARRETT,KAUSHIK Barrios Attending MD Review Statement Documenting Attending: NEEL BARRETT,ANJALI Hamilton
[2016-03-22] MEDS ORDERED: PROTONIX40 M3 PO ×3 (11:02→13:10)
--- NOTE | 2016-03-22 11:06 | Patient Discharge Instructions ---
Discharge Instructions General Discharge Information You were seen/treated for: 1) Acute on chronic hypercarbic and hypoxemic respiratory failure secondary to JUANITO and COPD exacerbation 2) GI bleeding 2/2 Duodenal Ulcers x 3 seen on Endoscopy (03/12) Special Instructions: Please make an appointment to see: 1) Your PCP within one week from discharge 2) Your Geriatric Physician within one week from discharge 3) Your Oleomargarine Maker within one week from discharge. 4) Your Dental Resident within one week from discharge. 5) No antiplatelet agents, NO NSAIDS 6) In one month can restart enteric coated baby aspirin alone and continue PPI indefinitely Patient needs to be on Nocturnal BiPAP. Diet Recommended Diet: Diabetic, Heart Healthy Activity Activity Self Limited: Yes Acute Coronary Syndrome Inclusion Criteria At DC or during hospital stay patient has or had the following: ACS DIAGNOSIS No Discharge Core Measures Meds if any: Prescribed or Continued at Discharge Meds if any: NOT Prescribed or Continued at Discharge Congestive Heart Failure Inclusion Criteria At DC or during hospital stay patient has or had the following: CHF DIAGNOSIS No Discharge Core Measures Meds if any: Prescribed or Continued at Discharge Meds if any: NOT Prescribed or Continued at Discharge Cerebrovascular accident Inclusion Criteria At DC or during hospital stay patient has or had the following: CVA/TIA Diagnosis No Discharge Core Measures Meds if any: Prescribed or Continued at Discharge Meds if any: NOT Prescribed or Continued at Discharge Venous thromboembolism Inclusion Criteria VTE Diagnosis No VTE Type NONE VTE Confirmed by (Test) NONE Discharge Core Measures - Per Current guidelines, there needs to be overlap - treatment for the first 5 days of Warfarin therapy. - If discharged on Warfarin prior to 5 days of - overlap therapy, the patient will need to be - assessed for post discharge needs including - *Post discharge parental anticoagulation - *Warfarin and/or parental anticoagulation education - *Follow up date to check INR post discharge At least 5 days overlap therapy as Inpatient No Meds if any: Prescribed or Continued at Discharge Note: Overlap Therapy is Warfarin and Anticoagulant Meds if any: NOT Prescribed or Continued at Discharge
[2016-03-22 11:20] VITALS: BP 120/60
[2016-03-22 11:26] VITALS: BP 120/60
--- NOTE | 2016-03-22 11:34 | PN- Pulmonary ---
Subjective HPI/Critical Care Issues: pt seen and examined doing well nocturnal bipap comfortable hgb stable Objective Current Medications: Current Medications Sig/Amadeo Start time Last Medication Dose Route Stop Time Status Admin Albuterol Sulfate 3 ML TID 03/10 2199 AC 03/22 INH 0753 Carvedilol 3.125 MG BID 03/10 2200 AC 03/22 PO 0929 Docusate Sodium 100 MG DAILY PRN 03/16 1500 AC PO Escitalopram Oxalate 10 MG DAILY 03/10 1030 AC 03/22 PO 0929 Furosemide 20 MG DAILY 03/21 1000 AC 03/22 PO 0929 Insulin Human Regular 0 TIDAC/HS 03/18 1200 AC 03/22 SC 0822 Ipratropium [place] 2.5 ML TID 03/10 2199 AC 03/22 INH 0753 Losartan Potassium 25 MG DAILY 03/22 1000 AC 03/22 PO 1126 Oxycodone/ 1 TAB Q6P PRN 03/10 1030 AC Acetaminophen PO Oxycodone/ 2 TAB Q6P PRN 03/10 1030 AC Acetaminophen PO Pantoprazole Sodium 40 MG BID 03/17 2199 AC 03/22 IV 0930 Prednisone 10 MG DAILY 03/21 1000 DC 03/22 PO 03/22 1001 0929 Senna 187 MG AT BEDTIME PRN 03/16 1500 AC 03/16 PO 1642 Vital Signs & I&O Last 24 Hrs of Vitals and I&O: Vital Signs Date Time Temp Pulse Resp B/P Pulse O2 O2 Flow FiO2 Ox Delivery Rate 03/22 1126 64 120/60 03/22 1120 98.2 64 20 120/60 03/22 0929 64 120/60 03/22 0828 98.2 64 20 120/60 99 Nasal 2.0L Cannula 03/22 0800 Nasal 2.0L Cannula 03/22 0755 98 Nasal 2.0L Cannula 03/22 0534 62 97 03/22 0139 62 98 03/22 0000 BIPAP 03/21 2234 98.2 64 18 118/62 99 Nasal 2.0L Cannula 03/21 2225 64 98 03/21 2133 98.3 67 18 118/62 03/21 1920 98 Nasal 2.0L Cannula 03/21 1600 96 Nasal 2.0L Cannula 03/21 1528 98.3 67 18 108/56 96 Nasal 2.0L Cannula 03/21 1509 Nasal 2.0L Cannula Intake & Output 03/22 1600 03/22 0800 03/22 0000 Intake Total 120 300 Output Total Balance 120 300 Intake, Oral 120 300 Exam Other Physical Findings: gen - awake and alert heent - poor dentition cvs s1, s2 lungs rare rhonchi, transmitted abd soft bs+ ext without edema Results Last 24 Hrs of Lab Results: Laboratory Tests 03/22/16 0654: Anion Gap 0 L, Estimated GFR 49 L, BUN/Creatinine Ratio 21.4, CBC w Diff NO MAN DIFF REQ, RBC 2.92 L, MCV 89.5, MCH 29.6, RDW 15.6 H, MPV 9.1, Gran % 78.7 H, Lymphocytes % 13.9 L, Monocytes % 5.9, Eosinophils % 1.3, Basophils % 0.2, Absolute Granulocytes 15.2 H, Absolute Lymphocytes 2.7, Absolute Monocytes 1.1 H, Absolute Eosinophils 0.3, Absolute Basophils 0, PUBS MCHC 33.1 Impression/Plan Impression/Plan Impression/Plan: Impression 76-year-old man with hypercarbic respiratory failure. History of congestive heart disease. Resolved acute blood loss anemia. Resolved respiratory failure. Plan - Nocturnal BiPAP and as needed - Ins and outs - TRC nebs - f/u cardiology recommendations - dc planning
[2016-03-22] MEDS ORDERED: SENNA S TABLET1 EACH PO (12:54)
[2016-03-22] MEDS ORDERED: MIRALAX17 G1 PO (12:54)
== END 2016-03-22 14:15 | DRG 208 ==
LOC: ENRESERVTM → ENRESERVDT → ERH 22:38 → CRI 03-09 00:03 → ENPENDDIS 03-09 00:03 → ERHI 03-09 00:03 → EDBEDREQ 03-09 00:30 → CRI 03-09 08:31 → 1NO 03-19 11:14
PROVIDERS: Emergency Medicine; Internal Medicine; Internal Medicine Cardiovascular Disease; Preventive Medicine Public Health & General Preventive Medicine; Student in an Organized Health Care Education/Training Program; ADMIT Student in an Organized Health Care Education/Training Program
PROC: 5A09457 Assistance with Respiratory Ventilation, 24-96 Consecutive Hours, Continuous Positive Airway Pressure (ICD-10-PCS; 2016-03-09)
PROC: 30233N1 Transfusion of Nonautologous Red Blood Cells into Peripheral Vein, Percutaneous Approach (ICD-10-PCS; 2016-03-11)
PROC: 5A1945Z Respiratory Ventilation, 24-96 Consecutive Hours (ICD-10-PCS; principal; 2016-03-12)
PROC: 0BH17EZ Insertion of Endotracheal Airway into Trachea, Via Natural or Artificial Opening (ICD-10-PCS; principal; 2016-03-12)
PROC: 0W3P8ZZ Control Bleeding in Gastrointestinal Tract, Via Natural or Artificial Opening Endoscopic (ICD-10-PCS; principal; 2016-03-12)
PROC: 5A09557 Assistance with Respiratory Ventilation, Greater than 96 Consecutive Hours, Continuous Positive Airway Pressure (ICD-10-PCS; 2016-03-12)
DX: J96.22 Acute and chronic respiratory failure with hypercapnia (principal); I47.2 Ventricular tachycardia; E46 Unspecified protein-calorie malnutrition; E87.3 Alkalosis; K26.4 Chronic or unspecified duodenal ulcer with hemorrhage; I13.0 Hypertensive heart and chronic kidney disease with heart failure and stage 1 through stage 4 chronic kidney disease, or unspecified chronic kidney disease; I50.22 Chronic systolic (congestive) heart failure; I24.8 Other forms of acute ischemic heart disease; D62 Acute posthemorrhagic anemia; E66.2 Morbid (severe) obesity with alveolar hypoventilation; J44.1 Chronic obstructive pulmonary disease with (acute) exacerbation; E11.22 Type 2 diabetes mellitus with diabetic chronic kidney disease; N18.3 Chronic kidney disease, stage 3 (moderate); I25.5 Ischemic cardiomyopathy; I25.2 Old myocardial infarction; I25.10 Atherosclerotic heart disease of native coronary artery without angina pectoris; E78.5 Hyperlipidemia, unspecified; J96.21 Acute and chronic respiratory failure with hypoxia; E11.649 Type 2 diabetes mellitus with hypoglycemia without coma; F32.9 Major depressive disorder, single episode, unspecified; Z79.84 Long term (current) use of oral hypoglycemic drugs; Z87.891 Personal history of nicotine dependence; Z95.1 Presence of aortocoronary bypass graft; Z86.73 Personal history of transient ischemic attack (TIA), and cerebral infarction without residual deficits
CPT/HCPCS: 1NP; 87338; CCU; 36415; 81001; 82436; 86920; 87040; 87070; 87086; 87147; 87449; 87450; 87804; 87804-59; 93005; 93010; 93306; 97110-GO; 97162-GP; 97530-GO; 99291; J0131; J0456; J0696; J1644; J1940; J2060; J2920; J2930; J3490; J7040; J7042; J7060; J7512; P9016; Q9957

== ENCOUNTER 2016-04-11 13:10 | Inpatient (IN) | payer OTHER, MEDICARE ==
[~2016-04-11] VITALS: Ht 172.7 cm; Wt 104.3 kg
[~2016-04-11 13:10] MED LIST changes: +MIRALAX17 G1 PO; +PROTONIX40 M3 PO; +SENNA S TABLET1 EACH PO
--- NOTE | 2016-04-11 13:18 | ED DYSPNEA/ASTHMA COMPLAINT ---
History of Present Illness General Chief Complaint: Dyspnea (COPD, CHF, Other) Stated Complaint: SOB Source: patient, old records, EMS Exam Limitations: poor historian Vital Signs & Intake/Output Vital Signs & Intake/Output Vital Signs Date Time Temp Pulse Resp B/P Pulse O2 O2 Flow FiO2 Ox Delivery Rate 04/11 1649 97.6 74 113/53 97 BIPAP 30% 04/11 1507 98 Nasal Cannula 04/11 1503 98.3 72 24 110/74 97 BIPAP 30% 04/11 1434 70 97 04/11 1315 96.7 73 20 126/60 100 Nasal 2.0L Cannula Allergies Coded Allergies: NO KNOWN ALLERGIES (04/17/15) Triage Nurses Notes Reviewed? yes HPI: Patient is a 76 year presents complaining of dyspnea for the past 2-3 days. Patient reports he has dyspnea at his baseline, has been worse over the past couple of days. Symptoms are currently mild to moderate. According to patient's W 10 patient was at therapy today when he became lethargic, was not responding. Patient's blood pressure was 70's/40's at the time. Patient reports that he was feeling fatigued during his physical therapy today, denies any unresponsive/ syncopal episode. Patient denies chest pain, lower extremity swelling, cough, fevers, chills. (URIEL PHILLIPS,JAROD) Reconcile Medications Albuterol Sulfate (Proair Hfa) 90 MCG HFA.AER.AD 2-4 PUF INH Q6H PRN ASTHMA ( Reported) Escitalopram Oxalate 10 MG TABLET 1 TAB PO DAILY MENTAL HEALTH (Reported) Fluticasone/Salmeterol (Advair 250-50 Diskus) 250 MCG-50 MCG/DOSE BLST.W.DEV 1 PUF INH BID COPD (Reported) Furosemide 20 MG TABLET 1 TAB PO Q48 WATER PILL (Reported) Glipizide 5 MG TABLET 1 TAB PO DAILY DM (Reported) Insulin Lispro (Humalog) 100 UNIT/ML VIAL DM (Reported) 151-200 2 U 201-250 4 U 251-300 6 U 301-350 8 U 351-400 10 U >400 or < 60 call MD Ipratropium/Albuterol Sulfate (Iprat-Albut 0.5-3(2.5) MG/3 Ml) 3 ML AMPUL.NEB 1 AMP INH 4 TIMES/DAY COPD (Reported) Pantoprazole Sodium (Protonix) 40 MG TABLET.DR 1 TAB PO DAILY DUODENAL ULCER Polyethylene Glycol 3350 (Miralax) 17 GRAM POWD.PACK 1 PAC PO DAILY CONSTIPATION dissolve in water Rosuvastatin Calcium (Crestor) 10 MG TABLET 1 TAB PO QPM CHOLESTEROL ( Reported) Tiotropium [place] (Spiriva) 18 MCG CAP.W.DEV 1 CAP INH DAILY BREATHING PROBLEMS (Reported) (MARSHALL ANDREWS DO) Past History Travel History Traveled to [place] past 21 day No Medical History Any Pertinent Medical History? 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 Bustamante), back surgery surgeries in bilateral shoulders right knee surgery Psychosocial History Who do you live with Son Services at Home Oxygen What is your primary language [place] Family History Family History, If Any: FATHER, ; Cause: MVA (motor vehicle accident). FH: diabetes mellitus MOTHER FH: breast cancer SISTER, ; Cause: Motor vehicle accident. BROTHER, ; Cause: Cancer. FH: cancer Hx Contributory? No (JAROD METCALF) Review of Systems Review of Systems Constitutional: Reports: malaise, weakness. Denies: chills, fever. EENTM: Reports: no symptoms. Respiratory: Reports: short of breath. Denies: cough. Cardiovascular: Denies: chest pain, peripheral edema, syncope (per W-10 +syncope, pt denies). GI: Denies: abdominal pain, nausea, vomiting. Genitourinary: Reports: no symptoms. Musculoskeletal: Reports: no symptoms. Skin: Reports: no symptoms. Neurological/Psychological: Reports: no symptoms. Hematologic/Endocrine: Reports: no symptoms. Immunologic/Allergic: Reports: no symptoms. (JAROD METCALF) Physical Exam Physical Exam General Appearance: alert, lethargic (mild), obese Head: atraumatic, normal appearance Eyes: Bilateral: normal appearance, PERRL, EOMI. Ears, Nose, Throat: normal pharynx, normal ENT inspection, hearing grossly normal Neck: normal inspection, supple, full range of motion Respiratory: mildly diffusely diminished lung sounds. No appreciable rales, wheezing, rhonchi Cardiovascular: regular rate/rhythm Gastrointestinal: soft, non-tender Extremities: 1+ bilateral lower extremity edema Neurologic/Psych: awake, mildly lethargic, responds to questions, mild disorientation to events of today? Skin: intact, normal color, warm/dry Lymphatic: no anterior cervical stephen Core Measures ACS in differential dx? Yes ASA ordered for poss ACS? No-ACS ruled out Severe Sepsis Present: No Septic Shock Present: No (URIEL PHILLIPS,JAROD) Progress Differential Diagnosis: asthma, AMI, bronchitis, CHF, COPD, pulmonary embolism, pneumonia, unstable angina, respiratory failure, anemia, arrhythmia, orthostatic hypotension, vasovagal syncope Plan of Care: Orders Procedure Date/time Status TROPONIN LEVEL 04/12 0130 Active EKG 04/12 0130 Active TROPONIN LEVEL 04/11 1930 Active EKG 04/11 1930 Active LACTIC ACID 04/11 1631 Active ARTERIAL BLOOD GAS (GEN) 04/11 1630 Active Admit to inpatient 04/11 1508 Active Lab Add-on Test 04/11 1507 Active ECHOCARDIOGRAM 04/11 1507 Active TRC EVALUATION (GEN) 04/11 1459 Active OXYGEN SETUP (GEN) 04/11 1459 Active Pathway - chart 04/11 1459 Active House Staff 04/11 1459 Active Patient Data 04/11 1459 Active Code Status 04/11 1459 Active Patient Data 04/11 1435 Active BIPAP 04/11 1434 Complete Telemetry/Harness Maker 04/11 1343 Active THYROID STIMULATING HORMONE 04/11 1336 Complete LIPID PANEL 04/11 1336 Complete FREE T4 04/11 1336 Complete TYPE & SCREEN (NOT X-MATCH) 04/11 1332 Complete LACTIC ACID 04/11 1331 Complete ARTERIAL BLOOD GAS (GEN) 04/11 1329 Complete TROPONIN LEVEL 04/11 1329 Complete PROTHROMBIN TIME 04/11 1329 Complete COMPREHENSIVE METABOLIC PANEL 04/11 1329 Complete CBC WITHOUT DIFFERENTIAL 04/11 1329 Complete B-TYPE NATRIURETIC PEP (BNP) 04/11 1329 Complete EKG 04/11 1311 Active VTE Mechanical Prophylaxis 04/11 UNK Active Vital Signs 04/11 UNK Active MISTAKE 04/11 UNK Active Telemetry/Harness Maker 04/11 UNK Active Intake & Output 04/11 UNK Active Hemoccult 04/11 UNK Active FingerStick- Glucose 04/11 UNK Active Current Medications Sig/Amadeo Start time Last Medication Dose Stop Time Status Admin Insulin Aspart 0 TIDAC 04/11 1700 AC (NovoLOG) Laboratory Tests 04/11/16 1350: pH 7.32 L, pCO2 69 *H, pO2 78 L, HCO3 35 H, ABG O2 Sat (Measured) 96.0, Carboxyhemoglobin 1.5, O2 Concentration % 2L, O2 Delivery Method NC, Phlebotomy Draw Site RIGHT RADIAL 04/11/16 1336: Lactic Acid 1.4 04/11/16 1336: Anion Gap 5, Estimated GFR 46 L, BUN/Creatinine Ratio 12.7, Glucose 185 H, Calcium 8.6, Total Bilirubin 0.4, AST 13 L, ALT 40, Alkaline Phosphatase 75, Troponin I 0.08, Nzx-O-Bwxjxyhuqci Pept 6300 H, Total Protein 5.2 L, Albumin 2.9 L, Globulin 2.3, Albumin/Globulin Ratio 1.3, Triglycerides 177 H, Cholesterol 136, LDL Cholesterol, Calc 47 L, HDL Cholesterol 54, Cholesterol/ HDL Ratio 2, TSH 1.670, Free T4 1.10, PT 11.5, INR 1.10, CBC w Diff NO MAN DIFF REQ, RBC 2.98 L, MCV 89.1, MCH 29.0, RDW 16.4 H, MPV 7.9, Gran % 69.8, Lymphocytes % 17.6 L, Monocytes % 11.6 H, Eosinophils % 0.8, Basophils % 0.2, Absolute Granulocytes 8.2 H, Absolute Lymphocytes 2.1, Absolute Monocytes 1.4 H, Absolute Eosinophils 0.1, Absolute Basophils 0, PUBS MCHC 32.6 L 04/11/2016 2:03:32 PM: Discussed with and seen by Dr. Andrews. 04/11/2016 2:26:15 PM: Patient with hypercarbic respiratory failure, BiPAP initiated after critical result was obtained from respiratory therapy. Dr. Andrews discussed case with hospitalist for admission. (URIEL PHILLIPS,JAROD) Diagnostic Imaging: Viewed by Me: Radiology Read. Discussed w/RAD: Radiology Read. Radiology Impression: PATIENT: FLORENTINO MARIE RECORD NO: [id number] PRESENT AGE: 76 PATIENT ACCOUNT NO: [id number] : 41 LOCATION: [facility] ORDERING PHYSICIAN: JAROD PHILLIPS SERVICE DATE: 04/11/16 EXAM TYPE: RAD - XRY-PORTABLE CHEST XRAY EXAMINATION: XR PORTABLE CHEST CLINICAL INFORMATION: Dyspnea, evaluate for pneumonia, CHF. COMPARISON: 03/16/2016. TECHNIQUE: Portable AP portable upright view of the chest was obtained. FINDINGS : The cardiomediastinal silhouette is stable appearing with post median sternotomy and multiple intact sternal wires again noted. Previously identified left lower opacity appears improved on today's exam suggesting evolving pneumonia. No focal infiltrate is identified on the right. There is no evidence of pneumothorax or pulmonary edema. Included osseous structures appear largely unremarkable. IMPRESSION: Improving left basilar process with subtle persistent left costophrenic angle blunting. Continued follow-up including PA and lateral films is recommended when possible. 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 < Electronically signed in Other Vendor System> SIGNED BY: GERMANIA PETERS MD 04/11/16 1433 Initial ED EKG: sinus rhythm 74 bpm, intraventricular conduction delay, no acute changes from previous EKG Prior EKG: unchanged (JAROD METCALF) Departure Departure Time of Disposition: 1448 Disposition: STILL A PATIENT Condition: Stable Clinical Impression Primary Impression: Acute hypercapnic respiratory failure Secondary Impressions: Chronic anemia, Chronic kidney disease, Syncope Referrals: ELLA GARCIA MD (PCP/Family) Departure Forms: Customer Survey General Discharge Information Admission Note Documentation of Exam: Documentation of any treatments & extenuating circumstances including Concerns Regarding Discharge (functional status, medication knowledge or non-compliance, living conditions, etc.) that warrant an admission rather than observation: BiPAP, serial arterial blood gas, cardiology consultation, pulmonary consultation, serial ekg, serial troponins (JAROD METCALF) Admission Note Spoke With: LESLIE CHILDRESS MD Documentation of Exam: Documentation of any treatments & extenuating circumstances including Concerns Regarding Discharge (functional status, medication knowledge or non-compliance, living conditions, etc.) that warrant an admission rather than observation: PA/TANNERY WORKER Co-Sign Statement Statement: ED Attending supervision documentation- [x] I saw and evaluated the patient. I have also reviewed all the pertinent lab results and diagnostic results. I agree with the findings and the plan of care as documented in the PA's/TANNERY WORKER's documentation. [] I have reviewed the ED Record and agree with the PA's/TANNERY WORKER's documentation. [] Additions or exceptions (if any) to the PAs/TANNERY WORKER's note and plan are summarized below: [] (MARSHALL ANDREWS DO) Critical Care Note Critical Care Note Critical Care Time: 30-74 min (URIEL PHILLIPS,JAROD)
[2016-04-11 13:49] LABS: ABSOLUTE BASOPHIL COUNT 0 /CUMM (0.0-0.2); ABSOLUTE EOSINOPHIL COUNT 0.1 /CUMM (0.0-0.7); ABSOLUTE GRANULOCYTE CT 8.2 /CUMM (1.4-6.5); ABSOLUTE LYMPH COUNT 2.1 /CUMM (1.2-3.4); ABSOLUTE MONOCYTE COUNT 1.4 /CUMM (0.10-0.60); BASOPHIL % 0.2 % (0.0-2.0); EOSINOPHIL % 0.8 % (0-5); GRANULOCYTE % 69.8 % (42.2-75.2); HEMATOCRIT 26.5 % (42-52); MEAN CORPUSCULAR HGB CONC 32.6 G/DL (33.0-37.0); MEAN CORPUSCULAR VOLUME 89.1 FL (80.0-94.0); MEAN PLATELET VOLUME 7.9 FL (7.4-10.4); PLATELET COUNT 309 /CUMM (130-400); RBC DISTRIBUTION WIDTH 16.4 % (11.5-14.5); RED BLOOD CELL CT 2.98 /CUMM (4.70-6.10); WHITE BLOOD CELL COUNT 11.8 /CUMM (4.8-10.8)
[2016-04-11 13:55] LABS: PT 11.5 SEC (9.4-12.5)
[2016-04-11] MEDS ORDERED: ADVAIR 250-501 EACH INH (14:08)
[2016-04-11] MEDS ORDERED: GLYBURIDE5 M1 PO (14:09)
[2016-04-11] MEDS ORDERED: FUROSEMIDE20 M1 PO (14:10)
[2016-04-11] MEDS ORDERED: HUMALOG100 UNIT/2 SC ×2 (14:11→17:12)
--- NOTE | 2016-04-11 14:33 | RADIOLOGY REPORT ---
EXAMINATION: XR PORTABLE CHEST CLINICAL INFORMATION: Dyspnea, evaluate for pneumonia, CHF. COMPARISON: 03/16/2016. TECHNIQUE: Portable AP portable upright view of the chest was obtained. FINDINGS: The cardiomediastinal silhouette is stable appearing with post median sternotomy and multiple intact sternal wires again noted. Previously identified left lower opacity appears improved on today's exam suggesting evolving pneumonia. No focal infiltrate is identified on the right. There is no evidence of pneumothorax or pulmonary edema. Included osseous structures appear largely unremarkable. IMPRESSION: Improving left basilar process with subtle persistent left costophrenic angle blunting. Continued follow-up including PA and lateral films is recommended when possible.
--- NOTE | 2016-04-11 14:55 | History & Physical ---
MARYAM CANO MD 04/11/16 6165: General Information and HPI MD Statement: I have seen and personally examined FLORENTINO DAVID and documented this H&P. The patient is a 76 year old M who presented with a patient stated chief complaint of [shortness of breath]. Source of Information: patient, W10 Exam Limitations: poor historian History of Present Illness: 76-year-old male with PMH of COPD on 2Lo2, JUANITO on CPAP, MO sp CABG, TIA, anemia, GI bleed, CKD, DM, PVD s/p stents, was brought in from [facility] for lethargy and unresponsiveness. As per W10, pt was not answering questions while in therapy. He was also noted to be dyspneic, with Bp of 70/40. Pt denies losing consciousness. He reported worsening dyspnea over the past 2 days. He has taken his inhalers around 6X over the past 2 days, which is normal for him. He reports increasd cough, but without sputum production. He reports wheezing X 3 days. LBM 2 days ago. Spoke to the nurse at the facility. Prior to starting physical therapy, pt was unresponsive. Abdominal binder was placed to start the PT. Abdominal binder was taken out prior to taking his BP, which was measured to be 70/40. He was still unresponsive, they placed him in Trendelenberg position with improvement in BP to systolic 120s. However, he was still hypoxic, with O2 sat below 90s on 2L. O2 was increased to 3L with o2 sat of 92%, subsequently increased to 95% with 4L. Unknown how long he was unresponsive for. SH: Pt currently in rehab. Ambulates with a walker. Quit smoking 5 years ago, with 120 pack year hx. Denies alcohol or drugs. ROS: Negative. Pt has chronic bilateral lower extremity edema. 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 FH: diabetes mellitus MOTHER FH: breast cancer SISTER, ; Cause: Motor vehicle accident. BROTHER, ; Cause: Cancer. FH: cancer Psychosocial History Where do you live? [facility] Who Do You Live With? child Services at Home: [facility] Primary Language: Gambian Smoking Status: Former Smoker (120 pack year) ETOH Use: denies use Illicit Drug Use: denies illicit drug use Living Will? yes Power of Jewel Hole Rough Opener/HCP? yes Name of POA/HCP: Pt's son Alejo David [phone] Functional Ability ADLs Independent: eating. Unknown: dressing, toileting, bathing. Ambulation: non-ambulatory IADLs Independent: telephone. Unknown: shopping, housework, finances, food prep, transportation, medication admin. Review of Systems Review of Systems Constitutional: Denies: chills, fever. EENTM: Denies: visual changes. Cardiovascular: Denies: chest pain, palpitations. Respiratory: Reports: cough, short of breath, wheezing. GI: Reports: constipation. Denies: abdominal pain, bloating, diarrhea. Genitourinary: Denies: dysuria. Exam & Diagnostic Data Last 24 Hrs of Vital Signs/I&O Vital Signs Date Time Temp Pulse Resp B/P Pulse O2 O2 Flow FiO2 Ox Delivery Rate 04/11 1735 98.4 72 18 108/58 97 Nasal 2.0L Cannula 04/11 1649 97.6 74 113/53 97 BIPAP 30% 04/11 1507 98 Nasal Cannula 04/11 1503 98.3 72 24 110/74 97 BIPAP 30% 04/11 1434 70 97 04/11 1315 96.7 73 20 126/60 100 Nasal 2.0L Cannula Intake & Output 04/11 1600 04/11 0800 04/11 0000 Intake Total 0 Output Total Balance 0 Intake, IV 0 Patient 136.078 kg Weight Physical Exam General Appearance Alert, Oriented X3, Cooperative, Mild Distress, on bipap Skin No Significant Lesion HEENT Atraumatic Neck Supple, +2 Carotid Pulse wo Bruit Cardiovascular difficult to assess heart sounds due to body habitus and bipap use Lungs mild wheezing Abdomen Normal Bowel Sounds, Soft, No Tenderness Neurological Normal Speech Extremities 2+ edema bilateral leg swelling Last 24 Hrs of Labs/Sumanth: Laboratory Tests 04/11/16 1705: pH 7.39, pCO2 59 H, pO2 87, HCO3 35 H, ABG O2 Sat (Measured) 95.0 L, P-50 ( Temp Corrected) N, Carboxyhemoglobin 0.3 L, O2 Concentration % 30%, Temperature 97.6, Respiration Rate 24, O2 Delivery Method BIPAP, Vent Mode ST, Expiratory Pressure 6, Inspiratory Pressure 20, Phlebotomy Draw Site RIGHT RADIAL 04/11/16 1350: pH 7.32 L, pCO2 69 *H, pO2 78 L, HCO3 35 H, ABG O2 Sat (Measured) 96.0, Carboxyhemoglobin 1.5, O2 Concentration % 2L, O2 Delivery Method NC, Phlebotomy Draw Site RIGHT RADIAL 04/11/16 1336: Lactic Acid 1.4 04/11/16 1336: Anion Gap 5, Estimated GFR 46 L, BUN/Creatinine Ratio 12.7, Glucose 185 H, Calcium 8.6, Total Bilirubin 0.4, AST 13 L, ALT 40, Alkaline Phosphatase 75, Troponin I 0.08, Kzq-V-Soxxhzbxfqk Pept 6300 H, Total Protein 5.2 L, Albumin 2.9 L, Globulin 2.3, Albumin/Globulin Ratio 1.3, Triglycerides 177 H, Cholesterol 136, LDL Cholesterol, Calc 47 L, HDL Cholesterol 54, Cholesterol/ HDL Ratio 2, TSH 1.670, Free T4 1.10, PT 11.5, INR 1.10, CBC w Diff NO MAN DIFF REQ, RBC 2.98 L, MCV 89.1, MCH 29.0, RDW 16.4 H, MPV 7.9, Gran % 69.8, Lymphocytes % 17.6 L, Monocytes % 11.6 H, Eosinophils % 0.8, Basophils % 0.2, Absolute Granulocytes 8.2 H, Absolute Lymphocytes 2.1, Absolute Monocytes 1.4 H, Absolute Eosinophils 0.1, Absolute Basophils 0, PUBS MCHC 32.6 L Diagnostic Data EKG Results SR 74, QTc 496. CXR Results FINDINGS: The cardiomediastinal silhouette is stable appearing with post median sternotomy and multiple intact sternal wires again noted. Previously identified left lower opacity appears improved on today's exam suggesting evolving pneumonia. No focal infiltrate is identified on the right. There is no evidence of pneumothorax or pulmonary edema. Included osseous structures appear largely unremarkable. IMPRESSION: Improving left basilar process with subtle persistent left costophrenic angle blunting. Continued follow-up including PA and lateral films is recommended when possible. Assessment/Plan Assessment: 76-year-old male with PMH of COPD on 2Lo2, JUANITO on CPAP, MO sp CABG, TIA, anemia, GI bleed, CKD, DM, PVD s/p stents, was brought in from [facility] for lethargy and unresponsiveness. Pt was dyspneic, bipap started in ED. Pt was admitted to telemetry with the following problems addressed: # Syncope with hypotension during PT at the rehab facility # Chronic hypercarbic and hypoxic respiratory failure # Anemia # Syncope most likely due to hypotension - Last echo Feb 2016: LVEF 40-45% * Monitor on tele * Pt sees Dr. Crouch #Chronic hypercarbic and hypoxic respiratory failure - ABG done in ED: 7.32/PCO2 69H/PO2 78L/ HCO3 (35), serum HCO3 39 - ABG after bipap: 7.39/PCO2 59H/PO2 87/ HCO3 (35) * Keep on bipap * No need for repeat ABG unless pt somnolent * OK to eat in between bipap * TRC neb * solumedrol 40q8 # Anemia, with hx of GI bleed - H/H 8.6/26.5 * Guaiac all stools * Continue protonix 40 mg daily # Chronic CHF - Probnp 6300 (was 6190 earlier Mar 2016) * Continue home lasix 20 mg q48 hours # DM * Accucheck * Novolog tidac # Continue home meds: Losartan 25 mg daily Escitalopram oxalate 10 mg Crestor 10 mg Miralax # Hold home meds: Glyburide Diet: CC3 DVT ppx: mech (no pharm due to anemia) FULL CODE As Ranked By This Provider Problem List: 1. Syncope 2. Chronic respiratory failure with hypoxia and hypercapnia Core Measures/Miscellaneous Acute Coronary Syndrome ACS Diagnosis: No Cerebrovascular Accident CVA/TIA Diagnosis: No Congestive Heart Failure CHF Diagnosis: No Venous Thromboembolism VTE Risk Factors: Acute medical illness, Age > 40 VTE Prophylaxis Ordered Inpt: Mechanical (ALPS/TEDS) No Mech VTE prophylaxis d/t: No contraindications No VTE Pharm Prophylaxis d/t: Active bleeding VTE Diagnosis: No VTE Type: NONE VTE Confirmed by (Test): NONE Severe Sepsis Severe Sepsis Present: No Septic Shock Septic Shock Present: No Miscellaneous Documentation Attending Case Discussed With: FILIPE NIX M.D Primary Care Physician: ELLA GARCIA MD Patient sees these Specialists Dr. Crouch cardiology Dr. Valenzuela pulmonology Level of Patient Care: Telemetry CONCEPCION JIN 04/11/162030: General Information and HPI Allergies/Medications Home Med list Albuterol Sulfate (Proair Hfa) 90 MCG HFA.AER.AD 2-4 PUF INH Q6H PRN ASTHMA ( Reported) Escitalopram Oxalate 10 MG TABLET 1 TAB PO DAILY MENTAL HEALTH (Reported) Fluticasone/Salmeterol (Advair 250-50 Diskus) 250 MCG-50 MCG/DOSE BLST.W.DEV 1 PUF INH BID COPD (Reported) Furosemide 20 MG TABLET 1 TAB PO Q48 WATER PILL (Reported) Glipizide 5 MG TABLET 1 TAB PO DAILY DM (Reported) Insulin Lispro (Humalog) 100 UNIT/ML VIAL DM (Reported) 151-200 2 U 201-250 4 U 251-300 6 U 301-350 8 U 351-400 10 U >400 or < 60 call Ipratropium/Albuterol Sulfate (Iprat-Albut 0.5-3(2.5) MG/3 Ml) 3 ML AMPUL.NEB 1 AMP INH 4 TIMES/DAY COPD (Reported) Pantoprazole Sodium (Protonix) 40 MG TABLET.DR 1 TAB PO DAILY DUODENAL ULCER Polyethylene Glycol 3350 (Miralax) 17 GRAM POWD.PACK 1 PAC PO DAILY CONSTIPATION dissolve in water Rosuvastatin Calcium (Crestor) 10 MG TABLET 1 TAB PO QPM CHOLESTEROL ( Reported) Tiotropium [place] (Spiriva) 18 MCG CAP.W.DEV 1 CAP INH DAILY BREATHING PROBLEMS (Reported) Resident Review Statement Resident Statement: examined this patient, discussed with environmental intern, agreed with environmental intern, discussed with family, reviewed EMR data (avail), discussed with nursing , reviewed images Other Findings: This is a 76 YO M W/PMH of JUANITO on CPAP, COPD on 2L NC O2, CAD S/P CABG, TIA, CKD , PVD s/p stent placement, recent admission of GIB and anemia who was brought to the hospital after being found minimally responsive and lethargic at [facility] ( [facility]). Patient denies passing out or LOC. Please see above for more details. Was placed on BiPAP in the ED. VS: T 96.7, GA 73, RR 20, BP 126/60, O2 sat 100% on NC O2 Ph/Ex: AAOx3, Mild distress, Obese HEENT: NCAT Neck: Supple no JVD or carotid bruits. Lungs: Decreased breath sounds CV: RRR no murmur Abd: NL BS, Soft, NT, ND Neurology: NL speech, CN 3-12 intact, sensation intact Ext: B/L LE edema, Puls symm Available Labs and Dx data reveiwed. Problem list: * AMS likely 2/2 hypercapnia * Hypercapnic hypoxemic resp failue * H/O anemia and GIB * DM Plan: * Telemtry monitor * Vitals q shift * C/W BiPAP, rpt ABG * R/O ACS W/serial trops and EKGs * TRC/Nebs * IV Steroids * Check hemoccult * C/W PPIs * Accuchecks * INS SS * Pulm Consult * C/W home meds except glipizide. * DVT PPX ALPS given anemia and recent GIB * FC * DM/Cardiac Diet DINAH BARRETT,[facility] 04/12/16 0828: Attending MD Review Statement Attending Statement Attending MD Statement: examined this patient, discuss w/resident/PA/CRATE REPAIRER, agreed w/resident/PA/CRATE REPAIRER, reviewed EMR data (avail), discussed with nursing, amended to note Attending Assessment/Plan: 6-year-old male with history of COPD, obstructive sleep apnea on CPAP therapy at night brought in for evaluation due to complaints of increased lethargy, shortness or breath and brief unresponsive episode earlier on in the day. He was also reported to be hypotensive in the field. Evaluation in the emergency room is found hemodynamically stable. However they are CO2 retention and respiratory acidosis. Metabolic acidosis on his serum chemistry indicates that this condition may have been going on for the past 2 days. On examination he is not wheezing overtly however he does have diminished breath sounds bilaterally. His altered sensory may be secondary to CO2 retention. He'll be admitted to the inpatient service and continued on BiPAP therapy which has been initiated in the emergency room, we will also continue bronchodilator therapy. There is is no evidence to suggest pneumonia so we'll hold off antibiotic therapy for now.
[2016-04-11] MEDS ORDERED: GLIPIZIDE5 M2 PO (16:32)
[2016-04-11] MEDS ORDERED: PROAIR HFA8.5 GM INH (16:37)
[2016-04-11] MEDS ORDERED: RANITIDINE HCL150 MG (16:40)
[2016-04-11] MEDS ORDERED: METFORMIN HCL500 M3 (16:40)
[2016-04-11] MEDS ORDERED: CLOPIDOGREL75 M1 (16:41)
--- NOTE | 2016-04-11 17:11 | Cons- Pulmonary ---
General Information and HPI Consulting Request Date of Consult: 04/11/16 Requested By: Dr. Howell Reason for Consult: Hypercarbic respiratory failure Source of Information: patient Exam Limitations: no limitations History of Present Illness: 76 -year-old man resident of [facility], history of DM, CAD s/p CABG, COPD, chronic hypercarbic respiratory failure, on O2 at home. Systolic CHF, CVA, CKD, HTN, anemia. Recent admission for hypercarbic respiratory failure and acute blood loss anemia secondary to a GI bleed. CXR improved from previous admissions. Hemoglobin stable although low at 8.6. Responsive. Per the report patient has had a syncopal episode triggered by hypotension during PT at [facility]. Allergies/Medications Allergies: Coded Allergies: NO KNOWN ALLERGIES (04/17/15) Home Med List: Albuterol Sulfate (Proair Hfa) 90 MCG HFA.AER.AD 2-4 PUF INH Q6H PRN ASTHMA ( Reported) Escitalopram Oxalate 10 MG TABLET 1 TAB PO DAILY MENTAL HEALTH (Reported) Fluticasone/Salmeterol (Advair 250-50 Diskus) 250 MCG-50 MCG/DOSE BLST.W.DEV 1 PUF INH BID COPD (Reported) Furosemide 20 MG TABLET 1 TAB PO Q48 WATER PILL (Reported) Glipizide 5 MG TABLET 1 TAB PO DAILY DM (Reported) Insulin Lispro (Humalog) 100 UNIT/ML VIAL DM (Reported) 151-200 2 U 201-250 4 U 251-300 6 U 301-350 8 U 351-400 10 U >400 or < 60 call Ipratropium/Albuterol Sulfate (Iprat-Albut 0.5-3(2.5) MG/3 Ml) 3 ML AMPUL.NEB 1 AMP INH 4 TIMES/DAY COPD (Reported) Pantoprazole Sodium (Protonix) 40 MG TABLET.DR 1 TAB PO DAILY DUODENAL ULCER Polyethylene Glycol 3350 (Miralax) 17 GRAM POWD.PACK 1 PAC PO DAILY CONSTIPATION dissolve in water Rosuvastatin Calcium (Crestor) 10 MG TABLET 1 TAB PO QPM CHOLESTEROL ( Reported) Tiotropium [place] (Spiriva) 18 MCG CAP.W.DEV 1 CAP INH DAILY BREATHING PROBLEMS (Reported) Current Medications: Current Medications Sig/Amadeo Start time Last Medication Dose Route Stop Time Status Admin Insulin Aspart 0 TIDAC 04/11 1700 AC SC Review of Systems Comments 18 point Review of Systems performed. Positive and negative pertinent findings are deliniated in the HPI. Otherwise the ROS is negative. 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 FH: diabetes mellitus MOTHER FH: breast cancer SISTER, ; Cause: Motor vehicle accident. BROTHER, ; Cause: Cancer. FH: cancer Psychosocial History Who Do You Live With? child Services at Home: [facility] Primary Language: Divehi Living Will? yes Power of Seat Mender/HCP? yes Name of POA/HCP: Pt's son Alejo David [phone] Functional Ability ADLs Independent: eating. Unknown: dressing, toileting, bathing. Ambulation: non-ambulatory IADLs Independent: telephone. Unknown: shopping, housework, finances, food prep, transportation, medication admin. Exam & Diagnostic Data Last 24 Hrs of Vital Signs/I&O Vital Signs Date Time Temp Pulse Resp B/P Pulse O2 O2 Flow FiO2 Ox Delivery Rate 04/12 0832 98.5 86 18 120/59 94 Nasal 2.0L Cannula 04/12 0830 95 Nasal 2.0L Cannula 04/12 0823 95 Nasal 2.0L Cannula 04/12 0814 94 Nasal 2.0L Cannula 04/12 0031 68 98 04/12 0008 98.0 62 20 110/52 90 CPAP 04/12 0000 BIPAP 40% 04/11 2102 Nasal 2.0L Cannula 04/11 2047 69 96 04/11 1735 98.4 72 18 108/58 97 Nasal 2.0L Cannula 04/11 1730 94 Nasal 2.0L Cannula 04/11 1649 97.6 74 113/53 97 BIPAP 30% 04/11 1507 98 Nasal Cannula 04/11 1503 98.3 72 24 110/74 97 BIPAP 30% 04/11 1434 70 97 04/11 1315 96.7 73 20 126/60 100 Nasal 2.0L Cannula Intake & Output 04/12 1600 04/12 0800 04/12 0000 Intake Total 150 200 Output Total Balance 150 200 Intake, IV 0 0 Intake, Oral 150 200 Number 0 0 Bowel Movements Patient 230 lb Weight Physical Exam Other Physical Findings: gen awake and alert heent ncat cvs s1, s2 lungs wheezing mainly on left abd soft bs+ ext 1+ edema Last 48 Hrs of Labs/Sumanth: Laboratory Tests 04/12/16 0310: Troponin I 0.07 04/11/162028: Troponin I 0.08 04/11/162028: Lactic Acid 1.7 04/11/16 1705: pH 7.39, pCO2 59 H, pO2 87, HCO3 35 H, ABG O2 Sat (Measured) 95.0 L, P-50 ( Temp Corrected) N, Carboxyhemoglobin 0.3 L, O2 Concentration % 30%, Temperature 97.6, Respiration Rate 24, O2 Delivery Method BIPAP, Vent Mode ST, Expiratory Pressure 6, Inspiratory Pressure 20, Phlebotomy Draw Site RIGHT RADIAL 04/11/16 1350: pH 7.32 L, pCO2 69 *H, pO2 78 L, HCO3 35 H, ABG O2 Sat (Measured) 96.0, Carboxyhemoglobin 1.5, O2 Concentration % 2L, O2 Delivery Method NC, Phlebotomy Draw Site RIGHT RADIAL 04/11/16 1336: Lactic Acid 1.4 04/11/16 1336: Anion Gap 5, Estimated GFR 46 L, BUN/Creatinine Ratio 12.7, Glucose 185 H, Calcium 8.6, Total Bilirubin 0.4, AST 13 L, ALT 40, Alkaline Phosphatase 75, Troponin I 0.08, Bvy-J-Inchpekbemn Pept 6300 H, Total Protein 5.2 L, Albumin 2.9 L, Globulin 2.3, Albumin/Globulin Ratio 1.3, Triglycerides 177 H, Cholesterol 136, LDL Cholesterol, Calc 47 L, HDL Cholesterol 54, Cholesterol/ HDL Ratio 2, TSH 1.670, Free T4 1.10, PT 11.5, INR 1.10, CBC w Diff NO MAN DIFF REQ, RBC 2.98 L, MCV 89.1, MCH 29.0, RDW 16.4 H, MPV 7.9, Gran % 69.8, Lymphocytes % 17.6 L, Monocytes % 11.6 H, Eosinophils % 0.8, Basophils % 0.2, Absolute Granulocytes 8.2 H, Absolute Lymphocytes 2.1, Absolute Monocytes 1.4 H, Absolute Eosinophils 0.1, Absolute Basophils 0, PUBS MCHC 32.6 L Assessment/Plan Impression/Plan: Impression 76 -year-old man resident of [place], history of DM, CAD s/p CABG, COPD, chronic hypercarbic respiratory failure, on O2 at home. Systolic CHF, CVA, CKD, HTN, anemia. Recent admission for hypercarbic respiratory failure and acute blood loss anemia secondary to a GI bleed. CXR improved from previous admissions. Hemoglobin stable although low at 8.6. Responsive. Per the report patient has had a syncopal episode triggered by hypotension during PT at [place]. The presentation is suggesitve of a syncopal event triggered by hypotension. Hypercarbia is compensated and primarily chronic, patient is doing well and appears to be at respiratory baseline. Plan -Not admitted for COPD exacerbation, although given acute issues can benefit from solumedrol empirically -anemia workup -syncope workup per primary team -tele monitoring -no further abgs unless clinically indicated -bipap nocturnal -dvt prophylaxis at all times Consult Acknowledgment - Thank you for your consult request.
[2016-04-11 17:35] VITALS: BP 108/58
[2016-04-12 00:08] VITALS: BP 110/52
--- NOTE | 2016-04-12 06:34 | PN- Housestaff ---
JEROME BARRETT,MARYAM 04/12/16 0633: Subjective Follow-up For: Syncope with hypotension Chronic hypercarbic hypoxic resp failure Tele-Events Since Last Visit: SR 61-67, first degree heart block, PVCs. Subjective: Pt was on BIPAP overnight. Still does not remember passing out yesterday at the facility. His breathing is at baseline, saturating > 90% on 2L oxygen. He offers no complains. His documented BP was 108-126/52-74. We will get orthostats vitals again today. Steroids changed to solumedrol 40 bid. Plan for discharge tomorrow. Review of Systems Constitutional: Denies: chills, fever. EENTM: Denies: visual changes. Cardiovascular: Denies: chest pain, palpitations. Respiratory: Denies: cough, short of breath, sputum production. Gastrointestinal: Denies: abdominal pain, bloating, constipation, diarrhea. Objective Last 24 Hrs of Vital Signs/I&O Vital Signs Date Time Temp Pulse Resp B/P Pulse O2 O2 Flow FiO2 Ox Delivery Rate 04/12 0832 98.5 86 18 120/59 94 Nasal 2.0L Cannula 04/12 0830 95 Nasal 2.0L Cannula 04/12 0823 95 Nasal 2.0L Cannula 04/12 0814 94 Nasal 2.0L Cannula 04/12 0031 68 98 04/12 0008 98.0 62 20 110/52 90 CPAP 04/12 0000 BIPAP 40% 04/11 2102 Nasal 2.0L Cannula 04/11 2047 69 96 04/11 1735 98.4 72 18 108/58 97 Nasal 2.0L Cannula 04/11 1730 94 Nasal 2.0L Cannula 04/11 1649 97.6 74 113/53 97 BIPAP 30% 04/11 1507 98 Nasal Cannula 04/11 1503 98.3 72 24 110/74 97 BIPAP 30% 04/11 1434 70 97 04/11 1315 96.7 73 20 126/60 100 Nasal 2.0L Cannula Intake & Output 04/12 1600 04/12 0800 04/12 0000 Intake Total 150 200 Output Total Balance 150 200 Intake, IV 0 0 Intake, Oral 150 200 Number 0 0 Bowel Movements Patient 104.326 kg Weight Physical Exam General Appearance: Alert, Oriented X3, Cooperative, No Acute Distress Skin: No Significant Lesion HEENT: Atraumatic Neck: Supple Cardiovascular: difficult to assess heart sounds Lungs: Clear to Auscultation, decreased air movement, no wheezing Abdomen: Normal Bowel Sounds, Soft, No Tenderness Neurological: Normal Speech Extremities: bilateral edema improved with compression stockings Current Medications: Current Medications Sig/Amadeo Start time Last Medication Dose Route Stop Time Status Admin Albuterol Sulfate 3 ML EVERY 4 HRS/AWAKE 04/12 0800 AC 04/12 INH 0810 Atorvastatin Calcium 40 MG 1700 04/12 1700 AC PO Escitalopram Oxalate 10 MG DAILY 04/12 1000 AC 04/12 PO 0856 Furosemide 20 MG Q48 04/13 1000 AC PO Insulin Aspart 0 TIDAC 04/12 0800 AC 04/12 SC 0755 Insulin Aspart 0 TIDAC 04/11 1700 DC 04/11 SC 1935 Insulin Human Regular 0 Q6 04/11 1800 CAN SC Ipratropium [place] 2.5 ML EVERY 4 HRS/AWAKE 04/12 0800 AC 04/12 INH 0810 Methylprednisolone 40 MG Q12 04/12 2200 AC IV Methylprednisolone 40 MG Q8 04/11 1730 DC 04/12 IV 0637 Omeprazole 40 MG DAILY AC 04/12 0700 AC 04/12 PO 0637 Last 24 Hrs of Lab/Sumanth Results Last 24 Hrs of Labs/Mics: Laboratory Tests 04/12/16 0310: Troponin I 0.07 04/11/162028: Troponin I 0.08 04/11/162028: Lactic Acid 1.7 04/11/16 1705: pH 7.39, pCO2 59 H, pO2 87, HCO3 35 H, ABG O2 Sat (Measured) 95.0 L, P-50 ( Temp Corrected) N, Carboxyhemoglobin 0.3 L, O2 Concentration % 30%, Temperature 97.6, Respiration Rate 24, O2 Delivery Method BIPAP, Vent Mode ST, Expiratory Pressure 6, Inspiratory Pressure 20, Phlebotomy Draw Site RIGHT RADIAL 04/11/16 1350: pH 7.32 L, pCO2 69 *H, pO2 78 L, HCO3 35 H, ABG O2 Sat (Measured) 96.0, Carboxyhemoglobin 1.5, O2 Concentration % 2L, O2 Delivery Method NC, Phlebotomy Draw Site RIGHT RADIAL 04/11/16 1336: Lactic Acid 1.4 04/11/16 1336: Anion Gap 5, Estimated GFR 46 L, BUN/Creatinine Ratio 12.7, Glucose 185 H, Calcium 8.6, Total Bilirubin 0.4, AST 13 L, ALT 40, Alkaline Phosphatase 75, Troponin I 0.08, Sal-C-Onyzqiulclq Pept 6300 H, Total Protein 5.2 L, Albumin 2.9 L, Globulin 2.3, Albumin/Globulin Ratio 1.3, Triglycerides 177 H, Cholesterol 136, LDL Cholesterol, Calc 47 L, HDL Cholesterol 54, Cholesterol/ HDL Ratio 2, TSH 1.670, Free T4 1.10, PT 11.5, INR 1.10, CBC w Diff NO MAN DIFF REQ, RBC 2.98 L, MCV 89.1, MCH 29.0, RDW 16.4 H, MPV 7.9, Gran % 69.8, Lymphocytes % 17.6 L, Monocytes % 11.6 H, Eosinophils % 0.8, Basophils % 0.2, Absolute Granulocytes 8.2 H, Absolute Lymphocytes 2.1, Absolute Monocytes 1.4 H, Absolute Eosinophils 0.1, Absolute Basophils 0, PUBS MCHC 32.6 L Assessment/Plan Assessment: 76-year-old male with PMH of COPD on 2Lo2, JUANITO on CPAP, [place] sp CABG, TIA, anemia, GI bleed, CKD, DM, PVD s/p stents, was brought in from [place] for lethargy and unresponsiveness. Pt was dyspneic, bipap started in ED. Pt was admitted to telemetry with the following problems addressed: # Syncope with hypotension during PT at the rehab facility # Chronic hypercarbic and hypoxic respiratory failure # Anemia # Syncope most likely due to hypotension - Last echo Feb 2016: LVEF 40-45% * Monitor on tele * Dr. Crouch consulted * Check orthostats vitals * Keep compression stockings * Serial EKG and trops negative for ACS #Chronic hypercarbic and hypoxic respiratory failure - ABG done in ED: 7.32/PCO2 69H/PO2 78L/ HCO3 (35), serum HCO3 39 - ABG after bipap: 7.39/PCO2 59H/PO2 87/ HCO3 (35) * Keep on bipap * No need for repeat ABG unless pt somnolent * OK to eat in between bipap * TRC neb * solumedrol 40q8 --> changed to 40 bid # Anemia, with hx of GI bleed - H/H 8.6/26.5 * Guaiac all stools * Continue protonix 40 mg daily # Chronic CHF - Probnp 6300 (was 6190 earlier Mar 2016) * Continue home lasix 20 mg q48 hours # DM * Accucheck * Novolog tidac # Continue home meds: Losartan 25 mg daily Escitalopram oxalate 10 mg Crestor 10 mg Miralax # Hold home meds: Glyburide Diet: CC3 DVT ppx: mech (no pharm due to anemia) FULL CODE Problem List: 1. Syncope Pain Ratin Pain Location: none Pain Goal: Remain pain free Pain Plan: none Tomorrow's Labs & Rationales: none DVT/Prophylaxis: mechanical FILIPE NIX MD 04/12/16 1550: Attending MD Review Statement Attending Statement Attending MD Statement: examined this patient, discuss w/resident/PA/WAXED BAG MACHINE OPERATOR, agreed w/resident/PA/WAXED BAG MACHINE OPERATOR, reviewed EMR data (avail), discussed with nursing, discussed with case mgmt, amended to note Attending Assessment/Plan: Patient seen and examined. Adalat and oriented 3. No events on telemetry overnight. No episodes of dizziness or loss of consciousness. With BiPAP therapy his blood gas improved with resolution of his acidosis and improvement of his CO2 retention. Patient reports compliance with his CPAP therapy at the nursing facility. It is unclear why he started retaining CO2 significantly, unless his pulmonary condition is progressing to the point of requiring BiPAP therapy during the day. At the facility was reported have been hypotensive however he has had no episodes of hypotension here. On examination he is alert and oriented 3. No focal deficits. Heart sounds are regular. He has fair entry bilaterally and lungs are clear to auscultation. Has bilateral pedal edema. Problems: 1. Syncope. 2. Hypotension at the nursing facility. 3. Acute hypercapnic respiratory failure 4. History of COPD on home oxygen therapy. 5. Diabetes mellitus 6. Chronic kidney disease Plan: -His headache enzymes are negative. He has had no events on telemetry. Check orthostatic vitals as part of syncope workup. -We'll obtain cardiology consultation as part of his syncope workup. -His CO2 retention may have played a role in his altered sensorium. He is currently alert and oriented 3. Would recommend monitoring patient in the hospital off BiPAP therapy during the daytime -No evidence of COPD exacerbation. Transition to prednisone 40 mg orally twice daily starting today. -His H&H is stable. He does have history of duodenal ulcers. Repeat CBC tomorrow. - If he remains hemodynamically stable with negative orthostatic vitals and no inc hange in mental status, may consider discharge tomorrow.
[2016-04-12 08:32] VITALS: BP 120/59
--- NOTE | 2016-04-12 13:01 | PN- Pulmonary ---
Subjective HPI/Critical Care Issues: pt seen and examined doing well this am afebrile used bipap overnight no n/v/d/c returning to respiratory baseline Objective Current Medications: Current Medications Sig/Amadeo Start time Last Medication Dose Route Stop Time Status Admin Albuterol Sulfate 3 ML EVERY 4 HRS/AWAKE 04/12 0800 AC 04/12 INH 1149 Atorvastatin Calcium 40 MG 1700 04/12 1700 AC PO Escitalopram Oxalate 10 MG DAILY 04/12 1000 AC 04/12 PO 0856 Furosemide 20 MG Q48 04/13 1000 AC PO Insulin Aspart 0 TIDAC 04/12 0800 AC 04/12 SC 0755 Insulin Aspart 0 TIDAC 04/11 1700 DC 04/11 SC 1935 Insulin Human Regular 0 Q6 04/11 1800 CAN SC Ipratropium [place] 2.5 ML EVERY 4 HRS/AWAKE 04/12 0800 AC 04/12 INH 1149 Methylprednisolone 40 MG Q12 04/12 2200 AC IV Methylprednisolone 40 MG Q8 04/11 1730 DC 04/12 IV 0637 Omeprazole 40 MG DAILY AC 04/12 0700 AC 04/12 PO 0637 Vital Signs & I&O Last 24 Hrs of Vitals and I&O: Vital Signs Date Time Temp Pulse Resp B/P Pulse O2 O2 Flow FiO2 Ox Delivery Rate 04/12 0832 98.5 86 18 120/59 94 Nasal 2.0L Cannula 04/12 0830 95 Nasal 2.0L Cannula 04/12 0823 95 Nasal 2.0L Cannula 04/12 0814 94 Nasal 2.0L Cannula 04/12 0031 68 98 04/12 0008 98.0 62 20 110/52 90 CPAP 04/12 0000 BIPAP 40% 04/11 2102 Nasal 2.0L Cannula 04/11 2047 69 96 04/11 1735 98.4 72 18 108/58 97 Nasal 2.0L Cannula 04/11 1730 94 Nasal 2.0L Cannula 04/11 1649 97.6 74 113/53 97 BIPAP 30% 04/11 1507 98 Nasal Cannula 04/11 1503 98.3 72 24 110/74 97 BIPAP 30% 04/11 1434 70 97 04/11 1315 96.7 73 20 126/60 100 Nasal 2.0L Cannula Intake & Output 04/12 1600 04/12 0800 04/12 0000 Intake Total 150 200 Output Total Balance 150 200 Intake, IV 0 0 Intake, Oral 150 200 Number 0 0 Bowel Movements Patient 230 lb Weight Exam Other Physical Findings: gen awake and alert heent ncat cvs s1, s2 lungs wheezing mainly on left abd soft bs+ ext 1+ edema Results Last 24 Hrs of Lab Results: Laboratory Tests 04/12/16 0310: Troponin I 0.07 04/11/162028: Troponin I 0.08 04/11/162028: Lactic Acid 1.7 04/11/16 1705: pH 7.39, pCO2 59 H, pO2 87, HCO3 35 H, ABG O2 Sat (Measured) 95.0 L, P-50 ( Temp Corrected) N, Carboxyhemoglobin 0.3 L, O2 Concentration % 30%, Temperature 97.6, Respiration Rate 24, O2 Delivery Method BIPAP, Vent Mode ST, Expiratory Pressure 6, Inspiratory Pressure 20, Phlebotomy Draw Site RIGHT RADIAL 04/11/16 1350: pH 7.32 L, pCO2 69 *H, pO2 78 L, HCO3 35 H, ABG O2 Sat (Measured) 96.0, Carboxyhemoglobin 1.5, O2 Concentration % 2L, O2 Delivery Method NC, Phlebotomy Draw Site RIGHT RADIAL 04/11/16 1336: Lactic Acid 1.4 04/11/16 1336: Anion Gap 5, Estimated GFR 46 L, BUN/Creatinine Ratio 12.7, Glucose 185 H, Calcium 8.6, Total Bilirubin 0.4, AST 13 L, ALT 40, Alkaline Phosphatase 75, Troponin I 0.08, Rwt-B-Fydwcepotfl Pept 6300 H, Total Protein 5.2 L, Albumin 2.9 L, Globulin 2.3, Albumin/Globulin Ratio 1.3, Triglycerides 177 H, Cholesterol 136, LDL Cholesterol, Calc 47 L, HDL Cholesterol 54, Cholesterol/ HDL Ratio 2, TSH 1.670, Free T4 1.10, PT 11.5, INR 1.10, CBC w Diff NO MAN DIFF REQ, RBC 2.98 L, MCV 89.1, MCH 29.0, RDW 16.4 H, MPV 7.9, Gran % 69.8, Lymphocytes % 17.6 L, Monocytes % 11.6 H, Eosinophils % 0.8, Basophils % 0.2, Absolute Granulocytes 8.2 H, Absolute Lymphocytes 2.1, Absolute Monocytes 1.4 H, Absolute Eosinophils 0.1, Absolute Basophils 0, PUBS MCHC 32.6 L Impression/Plan Impression/Plan Impression/Plan: Impression 76 -year-old man resident of [place], history of DM, CAD s/p CABG, COPD, chronic hypercarbic respiratory failure, on O2 at home. Systolic CHF, CVA, CKD, HTN, anemia. Admitted for syncope with chronic hypercarbic respiratory failure. Plan -Not admitted for COPD exacerbation, although given acute issues can benefit from solumedrol empirically, would reduce solumedrol to 40mg iv q12h today and prednisone 40mg starting tomorrow if doing well -anemia workup -syncope workup per primary team -tele monitoring -no further abgs unless clinically indicated -bipap nocturnal -dvt prophylaxis at all times
[2016-04-12 16:36] VITALS: BP 128/63
[2016-04-12] MEDS ORDERED: PREDNISONE10 M2 PO (17:06)
--- NOTE | 2016-04-12 17:11 | Patient Discharge Instructions ---
Discharge Instructions General Discharge Information You were seen/treated for: - Acute hypercapnic respiratory failure. -Syncope Special Instructions: - Please follow up with PCP and Dr. Valenzuela in 1 week. - Please use BIPAP as needed (especially nocturnal). - Patient's son would prefer for the pt to have a urinal bottle rather than a diaper at the facility. -We recommend to stop Levemir after the patient completes the course of his steroid therapy to avoid hypoglycemia; patient should be reassessed before making this decision. -Follow up Mg level. Diet Continue normal diet: Yes Activity Full Activity/No Limits: Yes Acute Coronary Syndrome Inclusion Criteria At DC or during hospital stay patient has or had the following: ACS DIAGNOSIS No Discharge Core Measures Meds if any: Prescribed or Continued at Discharge Meds if any: NOT Prescribed or Continued at Discharge Congestive Heart Failure Inclusion Criteria At DC or during hospital stay patient has or had the following: CHF DIAGNOSIS No Discharge Core Measures Meds if any: Prescribed or Continued at Discharge Meds if any: NOT Prescribed or Continued at Discharge Cerebrovascular accident Inclusion Criteria At DC or during hospital stay patient has or had the following: CVA/TIA Diagnosis No Discharge Core Measures Meds if any: Prescribed or Continued at Discharge Meds if any: NOT Prescribed or Continued at Discharge Venous thromboembolism Inclusion Criteria VTE Diagnosis No VTE Type NONE VTE Confirmed by (Test) NONE Discharge Core Measures - Per Current guidelines, there needs to be overlap - treatment for the first 5 days of Warfarin therapy. - If discharged on Warfarin prior to 5 days of - overlap therapy, the patient will need to be - assessed for post discharge needs including - *Post discharge parental anticoagulation - *Warfarin and/or parental anticoagulation education - *Follow up date to check INR post discharge At least 5 days overlap therapy as Inpatient No Meds if any: Prescribed or Continued at Discharge Note: Overlap Therapy is Warfarin and Anticoagulant Meds if any: NOT Prescribed or Continued at Discharge
[2016-04-12 22:38] VITALS: BP 116/54
--- NOTE | 2016-04-12 23:41 | RADIOLOGY REPORT ---
EXAMINATION: XR CHEST CLINICAL INFORMATION: Left basilar process, follow-up chest x-ray findings. COMPARISON: Chest x-ray 04/11/2016 TECHNIQUE: 2 views. FINDINGS: Status post median sternotomy. Heart size is enlarged. There is calcifications of thoracic aortic arch. Lungs are clear. The previously seen hazy opacity at left lung base has cleared. No large pleural effusion. No pneumothorax. IMPRESSION: No acute change of the chest. Interval clearing of a left basilar process. No large pleural effusion.
--- NOTE | 2016-04-13 06:55 | PN- Housestaff ---
JEROME BARRETT,[facility] 04/13/16 0654: Subjective Follow-up For: Syncope Tele-Events Since Last Visit: 3 beat run around 145 am first degree heart block bradycardia up to 43 ectopy couplets PACs Subjective: Pt was seen this morning, he used bipap overnight and feels that his breathing is at baseline. When asked, he said he did not have BM in 4 days, but he has documented BM yesterday and has 1 later this morning. Looking at the W10, his coreg was discontinued Mar presumably due to hypotension. Given the 3 beat run overnight (which he has had before, but his EF is 40%), we will check his electrolytes this morning and check with cardiology if BB needs to be restarted, and given the syncopal episode in the facility, if he is cleared for discharge. Given his bradycardia (up to 43 overnight) and borderline BP, we are inclined to hold the BB. will repeat orthostats vitals today. * later in the morning, he was noticably short of breath and would benefit from further bipap. Review of Systems Constitutional: Denies: chills, fever. EENTM: Denies: visual changes. Cardiovascular: Denies: chest pain. Respiratory: Denies: cough, short of breath, sputum production. Gastrointestinal: Reports: constipation. Objective Last 24 Hrs of Vital Signs/I&O Vital Signs Date Time Temp Pulse Resp B/P Pulse O2 O2 Flow FiO2 Ox Delivery Rate 04/13 0814 91 Nasal 2.0L Cannula 04/13 0800 95 Nasal 2.0L Cannula 04/13 0800 98.2 77 22 114/60 92 Nasal 2.0L Cannula 04/13 0031 69 92 04/13 0000 92 Nasal 2.0L Cannula 04/12 2248 72 91 04/12 2238 98.0 74 26 116/54 92 Nasal 2.0L Cannula 04/12 1636 98.1 85 18 128/63 91 Nasal 2.0L Cannula 04/12 1621 02 Nasal 2.0L Cannula 04/12 1600 Nasal 2.0L Cannula 04/12 1328 Nasal 2.0L Cannula Intake & Output 04/13 1600 04/13 0800 04/13 0000 Intake Total 50 480 Output Total Balance 50 480 Intake, Oral 50 480 Number 1 Bowel Movements Physical Exam General Appearance: Alert, Oriented X3, Cooperative, No Acute Distress Skin: No Significant Lesion HEENT: Atraumatic Cardiovascular: could not assess heart sounds Lungs: diminished breath sounds. no crackles/wheeze. Abdomen: Normal Bowel Sounds, Soft, No Tenderness Extremities: no edema with compression stockings Current Medications: Current Medications Sig/Amadeo Start time Last Medication Dose Route Stop Time Status Admin Albuterol Sulfate 3 ML EVERY 4 HRS/AWAKE 04/12 0800 AC 04/13 INH 0808 Atorvastatin Calcium 40 MG 1700 04/12 1700 AC 04/12 PO 1605 Docusate Sodium 100 MG TID 04/13 1000 AC 04/13 PO 0801 Escitalopram Oxalate 10 MG DAILY 04/12 1000 AC 04/13 PO 0800 Furosemide 20 MG Q48 04/13 1000 AC 04/13 PO 0800 Insulin Aspart 0 TIDAC 04/12 0800 AC 04/13 SC 0800 Ipratropium [place] 2.5 ML EVERY 4 HRS/AWAKE 04/12 0800 AC 04/13 INH 0809 Methylprednisolone 40 MG Q12 04/12 2200 CAN IV Methylprednisolone 40 MG Q12 04/12 2200 DC 04/12 IV 04/12 2359 2056 Methylprednisolone 40 MG Q8 04/11 1730 DC 04/12 IV 0637 Omeprazole 40 MG DAILY AC 04/12 0700 AC 04/13 PO 0650 Patient Medication 1 ED .STK-MED ONE 04/12 1413 DC Teaching ED 04/12 1414 Polyethylene Glycol 17 GM DAILY 04/13 0745 AC PO Prednisone 40 MG DAILY 04/13 1000 AC 04/13 PO 0800 Senna 187 MG ONCE ONE 04/13 0745 DC PO 04/13 0746 Assessment/Plan Assessment: 76-year-old male with PMH of COPD on 2Lo2, JUANITO on CPAP, [place] sp CABG, TIA, anemia, GI bleed, CKD, DM, PVD s/p stents, was brought in from [place] for lethargy and unresponsiveness. Pt was dyspneic, bipap started in ED. Pt was admitted to telemetry with the following problems addressed: # Syncope with hypotension during PT at the rehab facility # Chronic hypercarbic and hypoxic respiratory failure # Anemia # Syncope most likely due to hypotension - Last echo Feb 2016: LVEF 40-45% - Looking at the W10, his coreg was discontinued Mar presumably due to hypotension. He had 3 beat run (which he has had in the past), borderline BP, with bradycardia up to 43, he does have EF 40-45%, the reason for this admission for syncope we will check with cardiology if BB needs to be restarted and if he is cleared for discharge. * Monitor on tele * Dr. Crouch consulted * Check orthostats vitals * Keep compression stockings * Serial EKG and trops negative for ACS * [facility] confirmed that coreg was d/c'd due to hypotension. Consider starting coreg at lower dose (3.25 bid) #Chronic hypercarbic and hypoxic respiratory failure - ABG done in ED: 7.32/PCO2 69H/PO2 78L/ HCO3 (35), serum HCO3 39 - ABG after bipap: 7.39/PCO2 59H/PO2 87/ HCO3 (35) * Keep on bipap * No need for repeat ABG unless pt somnolent * OK to eat in between bipap * TRC neb * solumedrol 40q8 --> changed to solemedrol 40 bid --> prendinone 40 daily ( received an extra one time dose of solumedrol 40 this am) --> dc on taper # Anemia, with hx of GI bleed - H/H 8.6/26.5 * Guaiac all stools * Continue protonix 40 mg daily # Chronic CHF - Probnp 6300 (was 6190 earlier Mar 2016) * Continue home lasix 20 mg q48 hours # DM * Accucheck * Novolog tidac # Continue home meds: Losartan 25 mg daily Escitalopram oxalate 10 mg Crestor 10 mg Miralax # Hold home meds: Glyburide Diet: CC3 DVT ppx: mech (no pharm due to anemia) FULL CODE Problem List: 1. Syncope 2. Chronic respiratory failure with hypoxia and hypercapnia Pain Ratin Pain Location: none Pain Goal: Remain pain free Pain Plan: none Tomorrow's Labs & Rationales: none DVT/Prophylaxis: FILIPE Acevedo MD 04/13/16 1341: Attending MD Review Statement Attending Statement Attending Statement: examined this patient, discuss w/resident/PA/AQUACULTURAL WORKER SUPERVISOR, agreed w/resident/PA/AQUACULTURAL WORKER SUPERVISOR, reviewed EMR data (avail), discussed with nursing, discussed with case mgmt, amended to note Attending Assessment/Plan: Patient seen and examined. Resting comfortably not in acute distress. He does report mild shortness of breath this morning. Denies chest pain. Denies palpitations. Overnight on telemetry he had ventricular ectopy with triplets observed. He had similar episode during his previous admission and was continued on Coreg at that time. Choroid has since been discontinued at his half-way facility earlier on this month. Also on telemetry he was noted to be bradycardic with heart rate as low as 40s. On examination he is not in any acute distress. He has fair entry bilaterally with no added sounds. Abdomen is soft and nontender. Laboratory data shows improvement of his metabolic alkalosis. Problems: 1. Syncope. 2. Hypotension at the nursing facility. 3. Acute hypercapnic respiratory failure 4. History of COPD on home oxygen therapy. 5. Diabetes mellitus 6. Chronic kidney disease 7. Ventricular ectopy with history of nonsustained ventricular tachycardia. 8. Bradycardia Plan: -Pulmonary follow-up appreciated. Patient will receive an additional dose of Solu-Medrol today. Patient has a history of chronic hypoxic respiratory failure with episodes of hypercapnia. His COPD is likely progressing and he likely has underlying obstructive sleep apnea as well. Echocardiogram shows chronic diastolic dysfunction and mild pulmonary hypertension in addition. Continue diuretic therapy with Lasix 20 mg every other day. 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 He has had periods of bradycardia and periods of ventricular ectopy. He is currently not on beta benigno therapy as this was stopped at the [facility] earlier on this month due to hypotension. -Continue telemetry monitoring. -Patient has chronic anemia secondary to underlying peptic ulcer disease. Repeat H&H tomorrow to ensure hemoglobin level is stable prior to discharge.
[2016-04-13 08:00] VITALS: BP 114/60
--- NOTE | 2016-04-13 09:11 | Discharge Summary ---
Visit Information Visit Dates Admission Date: 04/11/16 Discharge Date: 04/16/16 Hospital Course Course Attending Physician: FILIPE NIX M.D Primary Care Physician: ELLA GARCIA MD Consulting Request: Consulting Specialty: Pulmonary Disease Hospital Course: This is a 76-year-old gentleman with past medical history significant for JUANITO on CPAP, COPD on 2L NC O2, CAD S/P CABG, TIA, CKD, PVD s/p stent placement, recent admission of GIB and anemia who was brought to the hospital after being found minimally responsive and lethargic at [facility] Patient denies passing out or LOC. Please see above for more details. Was placed on BiPAP in the ED. Vital signs on admission: Temperature 96.7, pulse rate 72, respiratory rate 20, blood pressure 126/60, oxygen saturation 97% on BiPAP. Ph/Ex: AAOx3, Mild distress, Obese HEENT: NCAT Neck: Supple no JVD or carotid bruits. Lungs: Decreased breath sounds CV: RRR no murmur Abd: NL BS, Soft, NT, ND Neurology: NL speech, CN 3-12 intact, sensation intact Ext: B/L LE edema, Puls symm Labs on admission: 04/11/16 1705: pH 7.39, pCO2 59 H, pO2 87, HCO3 35 H, ABG O2 Sat (Measured) 95.0 L, P-50 ( Temp Corrected) N, Carboxyhemoglobin 0.3 L, O2 Concentration % 30%, Temperature 97.6, Respiration Rate 24, O2 Delivery Method BIPAP, Vent Mode ST, Expiratory Pressure 6, Inspiratory Pressure 20, Phlebotomy Draw Site RIGHT RADIAL 04/11/16 1350: pH 7.32 L, pCO2 69 *H, pO2 78 L, HCO3 35 H, ABG O2 Sat (Measured) 96.0, Carboxyhemoglobin 1.5, O2 Concentration % 2L, O2 Delivery Method NC, Phlebotomy Draw Site RIGHT RADIAL 04/11/16 1336: Lactic Acid 1.4 04/11/16 1336: Anion Gap 5, Estimated GFR 46 L, BUN/Creatinine Ratio 12.7, Glucose 185 H, Calcium 8.6, Total Bilirubin 0.4, AST 13 L, ALT 40, Alkaline Phosphatase 75, Troponin I 0.08, Dse-A-Djqgbtxmxhs Pept 6300 H, Total Protein 5.2 L, Albumin 2.9 L, Globulin 2.3, Albumin/Globulin Ratio 1.3, Triglycerides 177 H, Cholesterol 136, LDL Cholesterol, Calc 47 L, HDL Cholesterol 54, Cholesterol/ HDL Ratio 2, TSH 1.670, Free T4 1.10, PT 11.5, INR 1.10, CBC w Diff NO MAN DIFF REQ, RBC 2.98 L, MCV 89.1, MCH 29.0, RDW 16.4 H, MPV 7.9, Gran % 69.8, Lymphocytes % 17.6 L, Monocytes % 11.6 H, Eosinophils % 0.8, Basophils % 0.2, Absolute Granulocytes 8.2 H, Absolute Lymphocytes 2.1, Absolute Monocytes 1.4 H, Absolute Eosinophils 0.1, Absolute Basophils 0, PUBS MCHC 32.6 L Diagnostic Data EKG Results SR 74, QTc 496. CXR Results FINDINGS: The cardiomediastinal silhouette is stable appearing with post median sternotomy and multiple intact sternal wires again noted. Previously identified left lower opacity appears improved on today's exam suggesting evolving pneumonia. No focal infiltrate is identified on the right. There is no evidence of pneumothorax or pulmonary edema. Included osseous structures appear largely unremarkable. IMPRESSION: Improving left basilar process with subtle persistent left costophrenic angle blunting. Continued follow-up including PA and lateral films is recommended when possible. The patient was admitted to telemetry monitored service. The following problems were addressed during the course of his hospital stay: #Syncopal episode: Had episode of hypotension in the rehabilitation. Patient was monitored on telemetry, orthostatics were checked and remained negative. He was maintained on compression stockings. ACS was ruled out with serial troponins and EKGs. Cardiology was consulted and recommendations were followed. No further episodes of syncope while in the hospital. #Acute hypercapnic respiratory failure: ABG done in ED: 7.32/PCO2 69H/PO2 78L/ HCO3 (35), serum HCO3 39. ABG after bipap: 7.39/PCO2 59H/PO2 87/ HCO3 (35). Patient was maintained on BiPAP. Received TRC/nebs, initially was started on IV steroids which was changed to by mouth. #Anemia, with hx of GI bleed: Stable. H/H 8.6/26.5 on 04/11/2016. Patient has a history of peptic ulcer disease diagnosed on endoscopy during his last admission. He was maintained on Protonix. All stools were checked for Hemoccult. #Chronic CHF: ProBNP 6300 (was 6190 earlier Mar 2016). He was maintained on Lasix at home dose of 20 mg every 48 hours. #Diabetes: Home medication of glipizide was held during his hospital stay. Glucose levels were monitored closely (Accu-Cheks). He was maintained on insulin sliding scale. Patient's blood glucose levels were consistently high in 400s, we believe it is 2/2 steroid use. Initially dose of Ins SS was adjusted, later on we had to add Levemir 10 BID to help better control blood glucose levels. Patient should be reassessed after completeing his steroid therapy; we recommend to stop Levemir after 6 days - april 22, 2016 #DVT prophylaxis: Alps given anemia and recent GI bleeding. #CODE STATUS: Full code #Cardiac/diabetic diet. His beta benigno therapy was discontinued at the intermediate due to episodes of bradycardia. He did have episodes of ventricular ectopy during this admission but none in the past 48 hours Allergies: Coded Allergies: NO KNOWN ALLERGIES (04/17/15) Disposition Summary Disposition Principal Diagnosis: Acute hypercapnic respiratory failure Additional Diagnosis: History of COPD on home oxygen therapy Discharge Disposition: SNF Discharge Instructions General Discharge Information Code Status: Full Code Patient's Diet: Cardiac/diabetic Patient's Activity: As tolerated Follow-Up Instructions/Appts: - Please follow up with PCP and Dr. Valenzuela in 1 week. - Please use BIPAP as needed (especially nocturnal). - Patient's son would prefer for the pt to have a urinal bottle rather than a diaper at the facility. -We recommend to stop Levemir after the patient completes the course of his steroid therapy to avoid hypoglycemia; patient should be reassessed before making this decision. -Follow up Mg level. Medications at Discharge Discharge Medications: Continue taking these medications: Rosuvastatin Calcium (Crestor) 10 MG TABLET 1 Tablet ORAL Every night Comments: Last Taken: 04/15/16 Time: 1700- LIPITOR GIVEN Tiotropium [place] (Spiriva) 18 MCG CAP.W.DEV 1 Capsule Inhale through mouth DAILY Comments: NOT GIVEN IN HOSPITAL Escitalopram Oxalate (Escitalopram Oxalate) 10 MG TABLET 1 Tablet ORAL DAILY Qty = 30 Comments: Last Taken: 04/16/16 Time: 0830 Ipratropium/Albuterol Sulfate (Iprat-Albut 0.5-3(2.5) MG/3 Ml) 3 ML AMPUL.NEB 1 Amp Inhale through mouth 4 TIMES A DAY Comments: PER W-10 Polyethylene Glycol 3350 (Miralax) 17 GRAM POWD.PACK 1 Packet ORAL DAILY Qty = 2 Instructions: dissolve in water Comments: NOT GIVEN IN HOSPITAL Pantoprazole Sodium (Protonix) 40 MG TABLET.DR 1 Tablet ORAL DAILY Qty = 30 Comments: Last Taken: 04/16/16 Time: 0700 Fluticasone/Salmeterol (Advair 250-50 Diskus) 250 MCG-50 MCG/DOSE BLST.W.DEV 1 Puff Inhale through mouth TWICE DAILY Qty = 60 Comments: NOT TAKEN IN HOSPITAL Furosemide (Furosemide) 20 MG TABLET 1 Tablet ORAL EVERY 48 HOURS (Every 2 days) Comments: Last Taken: 04/15/16 Time: 0930 Glipizide (Glipizide) 5 MG TABLET 1 Tablet ORAL DAILY Comments: NOT GIVEN IN HOSPITAL Albuterol Sulfate (Proair Hfa) 90 MCG HFA.AER.AD 2-4 Puff Inhale through mouth Q6H as needed for ASTHMA Instructions: LAST DOSE GIVEN 04/16/16 @ 800 Insulin Lispro (Humalog) 100 UNIT/ML VIAL Inject into fatty tissue SEE INSTRUCTIONS Instructions: 151-200 2 U 201-250 4 U 251-300 6 U 301-350 8 U 351-400 10 U >400 or < 60 call Comments: Last Taken: 04/16/16 Time: 1245 Start taking the following new medications: Insulin Detemir (Levemir) 100 UNIT/ML VIAL 10 Units Inject into fatty tissue TWICE DAILY Qty = 30 No Refills Instructions: please continue levemir for the next 6 days and stop on april 22, 2016 Prednisone (Prednisone) 10 MG TABLET 1 Tablet ORAL See Instructions Qty = 63 No Refills Instructions: Take 60 mg X 3 days 50 mg X 3 days 40 mg X 3 days 30 mg X 3 days 20 mg X 3 days 10 mg X 3 days Comments: NOT GIVEN (IV MEDICATION ONLY GIVEN) Magnesium Oxide (Magnesium) 400 MG CAPSULE 1 Capsule ORAL DAILY Qty = 30 No Refills Comments: Last Taken: 04/16/16 Time: 0830 Copies To: FELIZ BARRETT,KAUSHIK Barrios; RADHA BARRETT,ELLA; JOSE BARRETT,WADE Attending MD Review Statement Documenting Attending: FILIPE NIX M.D Other Findings: I have reviewed the discharge summary
--- NOTE | 2016-04-13 10:53 | ECHOCARDIOGRAM REPORT ---
FLORENTINO MARIE Age: 76 : 1940 Gender: M Exam Date: 04/11/2016 18:38 Exam Location: [address] Ht (in): 70 Wt (lb): 300 BSA: 2.66 BP: 110 / 74 Ordering Physician: LEELA JIN, Referring Physician: Shady Crouch MD Technologist: Malia Hurd [facility] Room Number: [id number] Indications: PRESYNCOPE/SYNCOPE Rhythm: Sinus Technical Quality: Poor, Technically difficult study FINDINGS Left Ventricle Normal size left ventricle. Severe concentric left ventricular hypertrophy. Mildly reduced global left ventricular systolic function. Borderline normal left ventricular ejection fraction estimated at 50%. Abnormal relaxation filling pattern of the left ventricle for age (stage 1 diastolic dysfunction). Mildly increased resting left ventricular outflow tract velocity (1.4 m/s). Right Ventricle Mild right ventricular dilatation. Right Atrium Right atrium not well visualized, grossly normal. Left Atrium Mild left atrial dilatation. Mitral Valve Moderate mitral annular calcification. Mitral valve thickened. Trace mitral regurgitation. Aortic Valve Diffuse mild thickening of the aortic valve cusps with mildly reduced excursion. Very mild aortic stenosis. No aortic regurgitation. Tricuspid Valve Tricuspid valve not well visualized, grossly normal. Mild tricuspid regurgitation. Mild pulmonary hypertension. Right ventricular systolic pressure estimated to be elevated at 42 mmHg. Pulmonic Valve Pulmonic valve not well visualized, grossly normal. No pulmonic regurgitation. Pericardium No pericardial effusion. Great Vessels Normal size aortic root. Mildly dilated inferior vena cava. CONCLUSIONS Normal size left ventricle. Severe concentric left ventricular hypertrophy. Mildly reduced global left ventricular systolic function. Borderline normal left ventricular ejection fraction estimated at 50%. Abnormal relaxation filling pattern of the left ventricle for age (stage 1 diastolic dysfunction). Mildly increased resting left ventricular outflow tract velocity (1.4 m/s). Mild right ventricular dilatation. Right atrium not well visualized, grossly normal. Mild left atrial dilatation. Trace mitral regurgitation. Very mild aortic stenosis. Mild tricuspid regurgitation. Mild pulmonary hypertension. Mildly dilated inferior vena cava. Shady Crouch M.D. (Electronically Signed) Final Date: 13 April 2016 10:52 MEASUREMENTS (Male / Female) Normal Values 2D ECHO LV Diastolic Diameter PLAX 5.7 cm 4.2 - 5.9 / 3.9 - 5.3 cm LV Systolic Diameter PLAX 4.0 cm 2.1 - 4.0 cm LV Fractional Shortening PLAX 29.8 % 25 - 46 % LV Ejection Fraction 2D Teich 56.3 % IVS Diastolic Thickness 1.7 cm LVPW Diastolic Thickness 1.7 cm LV Relative Wall Thickness 0.6 RV Internal Dim ED PLAX 3.4 cm 1.9 - 3.8 cm LVOT Diameter 1.8 cm Aortic Root Diameter 3.4 cm LA Systolic Diameter LX 4.7 cm 3.0 - 4.0 / 2.7 - 3.8 cm LA Volume 63.0 cm 18 - 58 / 22 - 52 cm Ascending Aorta Diameter 3.0 cm DOPPLER AV Peak Velocity 197.0 cm/s AV Peak Gradient 15.5 mmHg AV Mean Velocity 141.0 cm/s AV Mean Gradient 9.0 mmHg AV Velocity Time Integral 42.2 cm LVOT Peak Velocity 140.0 cm/s LVOT Peak Gradient 7.8 mmHg LVOT Mean Velocity 91.7 cm/s LVOT Mean Gradient 4.0 mmHg LVOT Velocity Time Integral 28.3 cm LVOT Stroke Volume 72.0 cm AV Area Cont Eq vti 1.7 cm AV Area Cont Eq pk 1.8 cm MV Peak Velocity 135.0 cm/s MV Peak Gradient 7.3 mmHg MV Mean Velocity 76.0 cm/s MV Mean Gradient 3.0 mmHg Mitral E Point Velocity 106.0 cm/s Mitral A Point Velocity 118.0 cm/s Mitral E to A Ratio 0.9 MV PHT Velocity 141.0 cm/s MV Deceleration [place] 724.0 cm/s MV Pressure Half Time 58.4 ms MV Area PHT 3.8 cm MV Deceleration Time 285.0 ms TR Peak Velocity 305.0 cm/s TR Peak Gradient 37.2 mmHg Right Atrial Pressure 5.0 mmHg Pulmonary Artery Systolic Pressu 42.2 mmHg Right Ventricular Systolic Press 42.2 mmHg PV Peak Velocity 120.0 cm/s PV Peak Gradient 5.8 mmHg PV Mean Velocity 82.7 cm/s PV Mean Gradient 3.0 mmHg PV Velocity Time Integral 25.6 cm LV E' Lateral Velocity 7.7 cm/s Mitral E to LV E' Lateral Ratio 13.8 LV E' Septal Velocity 9.4 cm/s Mitral E to LV E' Septal Ratio 11.3
--- NOTE | 2016-04-13 12:11 | PN- Pulmonary ---
Subjective HPI/Critical Care Issues: Pt seen and examined pursued lipped breathing dyspnea persists, although improved bipap nocturnal no n/v/d/c Objective Current Medications: Current Medications Sig/Amadeo Start time Last Medication Dose Route Stop Time Status Admin Albuterol Sulfate 3 ML EVERY 4 HRS/AWAKE 04/12 0800 AC 04/13 INH 1158 Atorvastatin Calcium 40 MG 1700 04/12 1700 AC 04/12 PO 1605 Docusate Sodium 100 MG TID 04/13 1000 AC 04/13 PO 0801 Escitalopram Oxalate 10 MG DAILY 04/12 1000 AC 04/13 PO 0800 Furosemide 20 MG Q48 04/13 1000 AC 04/13 PO 0800 Insulin Aspart 0 TIDAC 04/12 0800 AC 04/13 SC 0800 Ipratropium [place] 2.5 ML EVERY 4 HRS/AWAKE 04/12 0800 AC 04/13 INH 1158 Methylprednisolone 40 MG ONCE ONE 04/13 1030 DC IV 04/13 1031 Methylprednisolone 40 MG Q12 04/12 2200 CAN IV Methylprednisolone 40 MG Q12 04/12 2200 DC 04/12 IV 04/12 2359 2056 Omeprazole 40 MG DAILY AC 04/12 0700 AC 04/13 PO 0650 Patient Medication 1 ED .STK-MED ONE 04/12 1413 DC Teaching ED 04/12 1414 Polyethylene Glycol 17 GM DAILY 04/13 0745 AC PO Prednisone 40 MG DAILY 04/13 1000 AC 04/13 PO 0800 Senna 187 MG ONCE ONE 04/13 0745 DC PO 04/13 0746 Vital Signs & I&O Last 24 Hrs of Vitals and I&O: Vital Signs Date Time Temp Pulse Resp B/P Pulse O2 O2 Flow FiO2 Ox Delivery Rate 04/13 0814 91 Nasal 2.0L Cannula 04/13 0800 95 Nasal 2.0L Cannula 04/13 0800 98.2 77 22 114/60 92 Nasal 2.0L Cannula 04/13 0031 69 92 04/13 0000 92 Nasal 2.0L Cannula 04/12 2248 72 91 04/128 98.0 74 26 116/54 92 Nasal 2.0L Cannula 04/12 1636 98.1 85 18 128/63 91 Nasal 2.0L Cannula 04/12 1621 02 Nasal 2.0L Cannula 04/12 1600 Nasal 2.0L Cannula 04/12 1328 Nasal 2.0L Cannula Intake & Output 04/13 1600 02/22 0800 04/13 0000 Intake Total 50 480 Output Total Balance 50 480 Intake, Oral 50 480 Number 1 Bowel Movements Exam Other Physical Findings: gen awake and alert heent ncat cvs s1, s2 lungs wheezing mainly on left abd soft bs+ ext 1+ edema Results Last 24 Hrs of Lab Results: Laboratory Tests 04/13/16 1045: Sodium Pending, Potassium Pending, Chloride Pending, Carbon Dioxide Pending, Anion Gap Pending, BUN Pending, Creatinine Pending, BUN/Creatinine Ratio Pending , Magnesium Pending Impression/Plan Impression/Plan Impression/Plan: Impression 76 -year-old man resident of [place], history of DM, CAD s/p CABG, COPD, chronic hypercarbic respiratory failure, on O2 at home. Systolic CHF, CVA, CKD, HTN, anemia. Admitted for syncope with chronic hypercarbic respiratory failure. Plan -administer 40mg iv solumedrol today -then continue prednisone 40mg with a taper every 3 days by 10mg -continue bipap nocturnally -dvt prophylaxis at all times DC plannings within 24-48 hrs
--- NOTE | 2016-04-13 13:27 | Cons- Cardiology ---
General Information and HPI Consulting Request Date of Consult: 04/13/16 Requested By: FILIPE NIX M.D Reason for Consult: Syncopal episode. Source of Information: patient, old records Exam Limitations: poor historian History of Present Illness: Mr. Mat David is a 76-year-old morbidly obese male with a history of former heavy tobacco use, COPD on home oxygen with previous exacerbations, obesity hyperventilation syndrome, obstructive sleep apnea on CPAP, previous stroke without residual deficits, CKD, chronic anemia, hypertension, dyslipidemia, diabetes mellitus, and coronary artery disease S/P previous ID's by ECG/left ventricular systolic dysfunction with previous heart failure s/p CABG 2010 at [facility] who presented via ambulance from his ECF ([facility]) on 04/11/2016 following a syncopal episode preceded by hypotension while he was undergoing physical therapy. He was most recently hospitalized here (03/09-03/22/2016) with acute hypoxic hypercapnic respiratory failure on a background of COPD, obstructive sleep apnea , presumes obesity hypoventilation syndrome etc. He was also hospitalized here (06/24-06/29/2015) with acute on chronic respiratory failure felt secondary to acute exacerbation of COPD and also at that time had a modest bump in his troponin that was felt mainly to be on the basis of demand ischemia, although further outpatient evaluation and management for worsening ischemic heart disease was also recommended. He was also hospitalized here (06/02-06/07/2015) with acute on chronic respiratory failure felt secondary to acute exacerbation of COPD. Allergies/Medications Allergies: Coded Allergies: NO KNOWN ALLERGIES (04/17/15) Home Med List: Albuterol Sulfate (Proair Hfa) 90 MCG HFA.AER.AD 2-4 PUF INH Q6H PRN ASTHMA ( Reported) Escitalopram Oxalate 10 MG TABLET 1 TAB PO DAILY MENTAL HEALTH (Reported) Fluticasone/Salmeterol (Advair 250-50 Diskus) 250 MCG-50 MCG/DOSE BLST.W.DEV 1 PUF INH BID COPD (Reported) Furosemide 20 MG TABLET 1 TAB PO Q48 WATER PILL (Reported) Glipizide 5 MG TABLET 1 TAB PO DAILY DM (Reported) Insulin Lispro (Humalog) 100 UNIT/ML VIAL DM (Reported) 151-200 2 U 201-250 4 U 251-300 6 U 301-350 8 U 351-400 10 U >400 or < 60 call Ipratropium/Albuterol Sulfate (Iprat-Albut 0.5-3(2.5) MG/3 Ml) 3 ML AMPUL.NEB 1 AMP INH 4 TIMES/DAY COPD (Reported) Pantoprazole Sodium (Protonix) 40 MG TABLET.DR 1 TAB PO DAILY DUODENAL ULCER Polyethylene Glycol 3350 (Miralax) 17 GRAM POWD.PACK 1 PAC PO DAILY CONSTIPATION dissolve in water Rosuvastatin Calcium (Crestor) 10 MG TABLET 1 TAB PO QPM CHOLESTEROL ( Reported) Tiotropium [place] (Spiriva) 18 MCG CAP.W.DEV 1 CAP INH DAILY BREATHING PROBLEMS (Reported) Review of Systems Review of Systems: A 14 point system review was obtained and was noncontributory, other than as above. 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 FH: diabetes mellitus MOTHER FH: breast cancer SISTER, ; Cause: Motor vehicle accident. BROTHER, ; Cause: Cancer. FH: cancer Psychosocial History Where Do You Live? Acute Rehab Who Do You Live With? child Services at Home: Oxygen Primary Language: Macedonian Smoking Status: Former Smoker (120 pack year) ETOH Use: denies use Illicit Drug Use: denies illicit drug use Living Will? yes Power of Steel Heater/HCP? yes Name of POA/HCP: Pt's son Alejo David [phone] Functional Ability ADLs Independent: eating. Unknown: dressing, toileting, bathing. Ambulation: non-ambulatory IADLs Independent: telephone. Unknown: shopping, housework, finances, food prep, transportation, medication admin. Exam & Diagnostic Data Vital Signs and I&O Vital Signs Date Time Temp Pulse Resp B/P Pulse O2 O2 Flow FiO2 Ox Delivery Rate 04/13 0814 91 Nasal 2.0L Cannula 04/13 0800 95 Nasal 2.0L Cannula 04/13 08 98.2 77 22 114/60 92 Nasal 2.0L Cannula 04/13 0031 69 92 04/13 0000 92 Nasal 2.0L Cannula 04/12 2248 72 91 04/12 2238 98.0 74 26 116/54 92 Nasal 2.0L Cannula 04/12 1636 98.1 85 18 128/63 91 Nasal 2.0L Cannula 04/12 1621 02 Nasal 2.0L Cannula 04/12 1600 Nasal 2.0L Cannula 04/12 1328 Nasal 2.0L Cannula Intake & Output 04/13 1600 04/13 0800 04/13 0000 04/12 1600 04/12 0800 04/12 0000 Intake Total 50 480 410 150 200 Output Total Balance 50 480 410 150 200 Intake, IV 10 0 0 Intake, Oral 50 480 400 150 200 Number 1 0 0 Bowel Movements Patient 230 lb Weight Physical Exam: Well-developed, morbidly obese elderly male in no acute distress with nasal oxygen in place. Vital signs: See above. HEENT: Normocephalic, atraumatic, EOMI, moist mucous membranes. Neck: No JVD, no bruits. Lungs: Decreased breath sounds bilaterally. Heart: S1, S2 with no murmur, gallop, or rub appreciated. PMI not well felt. Abdomen: Soft, nontender, positive bowel sounds. Extremities: No edema. Assessment/Plan Assessment/Plan Mr. David is an elderly male SNF resident with multiple medical issues as outlined above who presented following a syncopal episode proceeded by hypotension during physical therapy. Obtain orthostatic blood pressure checks. He has had ventricular ectopy on monitoring with a ventricular triplet observed. He has also had some bradycardia, presumably while he slept with the heart rate down to the 40 beat per minute range at 5 AM this morning. He is on no beta benigno or non-dihydropyridine calcium channel agents. Would continue on telemetry, replete magnesium, and place on daily magnesium supplements. Given his known history of coronary artery disease would maintain his hemoglobin above 8 g/dl. Continue DVT prophylaxis. Check all stools for occult blood and further evaluate ongoing anemia. Consult Acknowledgment - Thank you for your consult request.
[2016-04-13] MEDS ORDERED: MAGNESIUM400 M1 PO (13:45)
[2016-04-13 16:35] VITALS: BP 120/60
[2016-04-13 23:48] VITALS: BP 130/60
--- NOTE | 2016-04-14 07:06 | PN- Housestaff ---
JEROME BARRETT,MARYAM 04/14/16 0706: Subjective Follow-up For: Syncope Tele-Events Since Last Visit: NSR, PVCs, PACs, 1st degree heart block, rate 64-93. Subjective: Pt was seen and examined this morning. He seems to be in respiratory distress with purse lip breathing. He does report shortness of breath, but thinks it is his baseline. On lung exams, he was tight with insp and exp wheezing. Last breathing tx was last night. He used bipap overnight. Called respiratory to give him a breathing tx. His BS was high in the 400s, most likely due to steroids use. Novolog ss changed to high dose. Needs to be closely monitored. PT recc STR. Noted inc in WBC, most likely due to steroids use. Review of Systems Constitutional: Denies: chills, fever. EENTM: Denies: visual changes. Cardiovascular: Denies: chest pain. Respiratory: Reports: short of breath. Denies: cough. Gastrointestinal: Denies: abdominal pain. Objective Last 24 Hrs of Vital Signs/I&O Vital Signs Date Time Temp Pulse Resp B/P Pulse O2 O2 Flow FiO2 Ox Delivery Rate 04/14 0732 95 Nasal 2.0L Cannula 04/14 0003 69 94 04/14 0000 94 BIPAP 04/13 2348 96.6 72 24 130/60 94 BIPAP 30% 04/13 2115 74 87 04/13 1635 98.1 77 18 120/60 92 Nasal 2.0L Cannula 04/13 1604 92 Nasal 2.0L Cannula 04/13 0814 91 Nasal 2.0L Cannula 04/13 0800 95 Nasal 2.0L Cannula 04/13 0800 98.2 77 22 114/60 92 Nasal 2.0L Cannula Intake & Output 04/14 0800 04/14 0000 04/13 1600 Intake Total 300 450 480 Output Total Balance 300 450 480 Intake, Oral 300 450 480 Number 1 Bowel Movements Physical Exam General Appearance: Alert, Oriented X3, Mild Distress Skin: No Significant Lesion HEENT: Atraumatic Cardiovascular: heart sounds difficult to assess Lungs: decreased air entry. bilateral insp and exp wheeze. Abdomen: Normal Bowel Sounds, Soft, No Tenderness Extremities: no edema with compression stockings Current Medications: Current Medications Sig/Amadeo Start time Last Medication Dose Route Stop Time Status Admin Albuterol Sulfate 3 ML EVERY 4 HRS/AWAKE 04/12 0800 AC 04/14 INH 0729 Atorvastatin Calcium 40 MG 1700 04/12 1700 AC 04/13 PO 1756 Docusate Sodium 100 MG TID 04/13 1000 AC 04/13 PO 0801 Escitalopram Oxalate 10 MG DAILY 04/12 1000 AC 04/13 PO 0800 Furosemide 20 MG Q48 04/13 1000 AC 04/13 PO 0800 Insulin Aspart 0 TIDAC 04/14 0800 AC SC Insulin Aspart 0 TIDAC/HS 04/13 2100 DC 04/13 SC 2104 Insulin Aspart 0 TIDAC 04/12 0800 DC 04/13 SC 1757 Ipratropium [place] 2.5 ML EVERY 4 HRS/AWAKE 04/12 0800 AC 04/14 INH 0729 Magnesium Oxide 400 MG ONE ONE 04/13 1330 DC 04/13 PO 04/13 1331 1756 Methylprednisolone 40 MG ONCE ONE 04/13 1030 DC 04/13 IV 04/13 1031 1228 Omeprazole 40 MG DAILY AC 04/12 0700 AC 04/14 PO 0639 Polyethylene Glycol 17 GM DAILY 04/13 0745 AC PO Prednisone 40 MG DAILY 04/13 1000 AC 04/13 PO 0800 Last 24 Hrs of Lab/Sumanth Results Last 24 Hrs of Labs/Mics: Laboratory Tests 04/14/16 0635: Anion Gap 7, Estimated GFR 42 L, BUN/Creatinine Ratio 22.5, Magnesium 1.9, CBC w Diff Pending, WBC Pending, RBC Pending, Hgb Pending, Hct Pending, MCV Pending, MCH Pending, RDW Pending, Plt Count Pending, MPV Pending, PUBS MCHC Pending 04/13/16 1045: Anion Gap 8, Estimated GFR 46 L, BUN/Creatinine Ratio 18.7, Magnesium 1.8 Assessment/Plan Assessment: 76-year-old male with PMH of COPD on 2Lo2, JUANITO on CPAP, [place] sp CABG, TIA, anemia, GI bleed, CKD, DM, PVD s/p stents, was brought in from [place] for lethargy and unresponsiveness. Pt was dyspneic, bipap started in ED. Pt was admitted to telemetry with the following problems addressed: # Syncope with hypotension during PT at the rehab facility # Chronic hypercarbic and hypoxic respiratory failure # Anemia # Syncope most likely due to hypotension - Last echo Feb 2016: LVEF 40-45% - Looking at the W10, his coreg was discontinued Mar due to hypotension. He had 3 beat run (which he has had in the past), borderline BP (apparently his normal BP is around systolic 90s as per his son), with bradycardia up to 43 (on tele monitor), he does have EF 40-45%, with this admission being for syncope due to hypotension, we are hesitant to re-start BB. * Monitor on tele * Dr. Crouch consulted * Check orthostats vitals * Keep compression stockings * Serial EKG and trops negative for ACS #Chronic hypercarbic and hypoxic respiratory failure - ABG done in ED: 7.32/PCO2 69H/PO2 78L/ HCO3 (35), serum HCO3 39 - ABG after bipap: 7.39/PCO2 59H/PO2 87/ HCO3 (35) * Keep on bipap * No need for repeat ABG unless pt somnolent * OK to eat in between bipap * TRC neb * solumedrol 40q8 # Anemia, with hx of GI bleed - H/H 8.6/26.5 * Guaiac all stools * Continue protonix 40 mg daily # Chronic CHF - Probnp 6300 (was 6190 earlier Mar 2016) * Continue home lasix 20 mg q48 hours # DM * Accucheck * Novolog tidac # Continue home meds: Losartan 25 mg daily Escitalopram oxalate 10 mg Crestor 10 mg Miralax # Hold home meds: Glyburide Diet: CC3 DVT ppx: mech (no pharm due to anemia) FULL CODE Problem List: 1. Syncope 2. Chronic respiratory failure with hypoxia and hypercapnia Pain Ratin Pain Location: none Pain Goal: Remain pain free Pain Plan: none Tomorrow's Labs & Rationales: none DVT/Prophylaxis: mechanical Consulting Request: Consulting Specialty: Pulmonary Disease FILIPE NIX MD 04/14/16 1307: Attending MD Review Statement Attending Statement Attending MD Statement: examined this patient, discuss w/resident/PA/DRY HEAT CABINET ATTENDANT, agreed w/resident/PA/DRY HEAT CABINET ATTENDANT, reviewed EMR data (avail), discussed with nursing, discussed with case mgmt, amended to note Attending Assessment/Plan: Patient seen and examined. Lying in bed. He reports feeling better however he does appear lethargic. He fortunately doesn't appear to be in respiratory distress. He is maintaining his saturation on 2 L of oxygen. He is hemodynamically stable. No significant events overnight on telemetry. On examination he has fair entry bilaterally. He is not wheezing significantly. Case discussed with the pulmonary service. He was noted to have personally breathing earlier on this morning. Recommendations are for more aggressive treatment of his COPD with intravenous steroids and reassess him possibly through the weekend. His blood glucose levels have been in the 400s. He is managed at baseline with only present. Recommend continuing patient on high-dose sliding scale coverage and addition of Levemir insulin 10 units twice daily to his regimen.
[2016-04-14 07:53] LABS: ABSOLUTE BASOPHIL COUNT 0 /CUMM (0.0-0.2); ABSOLUTE EOSINOPHIL COUNT 0 /CUMM (0.0-0.7); BASOPHIL % 0 % (0.0-2.0); EOSINOPHIL % 0 % (0-5); GRANULOCYTE % 90.2 % (42.2-75.2); HEMATOCRIT 27.3 % (42-52); RED BLOOD CELL CT 3.06 /CUMM (4.70-6.10)
[2016-04-14 08:12] LABS: ABSOLUTE GRANULOCYTE CT 20.8 /CUMM (1.4-6.5); ABSOLUTE MONOCYTE COUNT 1.3 /CUMM (0.10-0.60); MEAN CORPUSCULAR HGB 29.1 PG (27.0-31.0); MEAN CORPUSCULAR HGB CONC 32.6 G/DL (33.0-37.0); MEAN CORPUSCULAR VOLUME 89.3 FL (80.0-94.0); MEAN PLATELET VOLUME 8.8 FL (7.4-10.4); PLATELET COUNT 326 /CUMM (130-400); RBC DISTRIBUTION WIDTH 16.3 % (11.5-14.5)
[2016-04-14 08:25] VITALS: BP 130/70
--- NOTE | 2016-04-14 10:31 | PN- Pulmonary ---
Subjective HPI/Critical Care Issues: pt seen and examined was in a chair yesterday no n/v/d/c overall feels better, but still with significant dyspnea and pursed lipped breathing Objective Current Medications: Current Medications Sig/Amadeo Start time Last Medication Dose Route Stop Time Status Admin Albuterol Sulfate 3 ML EVERY 4 HRS/AWAKE 04/12 0800 AC 04/14 INH 0729 Atorvastatin Calcium 40 MG 1700 04/12 1700 AC 04/13 PO 1756 Docusate Sodium 100 MG TID 04/13 1000 AC 04/13 PO 0801 Escitalopram Oxalate 10 MG DAILY 04/12 1000 AC 04/14 PO 1009 Furosemide 20 MG Q48 04/13 1000 AC 04/13 PO 0800 Insulin Aspart 0 TIDAC 04/14 0800 AC 04/14 SC 0808 Insulin Aspart 0 TIDAC/HS 04/13 2100 DC 04/13 SC 2104 Insulin Aspart 0 TIDAC 04/12 0800 DC 04/13 SC 1757 Ipratropium [place] 2.5 ML EVERY 4 HRS/AWAKE 04/12 0800 AC 04/14 INH 0729 Magnesium Oxide 400 MG ONE ONE 04/13 1330 DC 04/13 PO 04/13 1331 1756 Methylprednisolone 40 MG Q8 04/14 0945 AC 04/14 IV 1009 Methylprednisolone 40 MG ONCE ONE 04/13 1030 DC 04/13 IV 04/13 1031 1228 Omeprazole 40 MG DAILY AC 04/12 0700 AC 04/14 PO 0639 Polyethylene Glycol 17 GM DAILY 04/13 0745 AC PO Prednisone 40 MG DAILY 04/13 1000 DC 04/13 PO 0800 Vital Signs & I&O Last 24 Hrs of Vitals and I&O: Vital Signs Date Time Temp Pulse Resp B/P Pulse O2 O2 Flow FiO2 Ox Delivery Rate 04/14 0825 97.8 70 20 130/70 95 04/14 0800 95 Nasal 2.0L Cannula 04/14 0732 95 Nasal 2.0L Cannula 04/14 0003 69 94 04/14 0000 94 BIPAP 04/13 2348 96.6 72 24 130/60 94 BIPAP 30% 04/13 2115 74 87 04/13 1635 98.1 77 18 120/60 92 Nasal 2.0L Cannula 04/13 1604 92 Nasal 2.0L Cannula Intake & Output 04/14 1600 04/14 0800 02/23 0000 Intake Total 300 450 Output Total Balance 300 450 Intake, Oral 300 450 Exam Other Physical Findings: gen awake and alert heent ncat cvs s1, s2 lungs wheezing mainly on left abd soft bs+ ext 1+ edema Results Last 24 Hrs of Lab Results: Laboratory Tests 04/14/16 0635: Anion Gap 7, Estimated GFR 42 L, BUN/Creatinine Ratio 22.5, Magnesium 1.9, CBC w Diff NO MAN DIFF REQ, RBC 3.06 L, MCV 89.3, MCH 29.1, RDW 16.3 H, MPV 8.8, Gran % 90.2 H, Lymphocytes % 4.2 L, Monocytes % 5.6, Eosinophils % 0, Basophils % 0 L, Absolute Granulocytes 20.8 H, Absolute Lymphocytes 1.0 L, Absolute Monocytes 1.3 H, Absolute Eosinophils 0, Absolute Basophils 0, PUBS MCHC 32.6 L 04/13/16 1045: Anion Gap 8, Estimated GFR 46 L, BUN/Creatinine Ratio 18.7, Magnesium 1.8 Impression/Plan Impression/Plan Impression/Plan: Impression 76 -year-old man resident of [place], history of DM, CAD s/p CABG, COPD, chronic hypercarbic respiratory failure, on O2 at home. Systolic CHF, CVA, CKD, HTN, anemia. Admitted for syncope with chronic hypercarbic respiratory failure. Plan -dc prednisone -begin solumedrol 40mg iv q8h with monitoring finger sticks -continue bipap nocturnally -dvt prophylaxis at all times
[2016-04-14 16:41] VITALS: BP 140/78
[2016-04-15 00:28] VITALS: BP 138/70
--- NOTE | 2016-04-15 06:39 | PN- Housestaff ---
JEROME BARRETT,MARYAM 04/15/16 0639: Subjective Follow-up For: syncope chronic hypoxic hypercarbic Tele-Events Since Last Visit: SR 75-78, yee to 54 Subjective: NO overnight events. When pt was seen this morning, he was still on bipap and still seem to be in respiratory distress. he wanted the bipap removed, respiratory notified. His blood sugar 366-406, later this morning was still around 450 despite levemir added and changing novolog to high dose sliding scale. solumedrol iv 40 q8 changed to q12. Review of Systems Constitutional: Denies: chills, fever. EENTM: Denies: visual changes. Cardiovascular: Denies: chest pain, palpitations. Respiratory: Reports: short of breath. Denies: cough. Gastrointestinal: Denies: abdominal pain, bloating. Objective Last 24 Hrs of Vital Signs/I&O Vital Signs Date Time Temp Pulse Resp B/P Pulse O2 O2 Flow FiO2 Ox Delivery Rate 04/15 1041 Nasal 2.0L Cannula 04/15 0830 94 Nasal 2.0L Cannula 04/15 0757 96 Nasal 2.0L Cannula 04/15 0756 98.2 62 24 136/94 95 BIPAP 04/15 0737 96 04/15 0310 78 93 04/15 0034 91 86 04/15 0028 98.0 66 26 138/70 95 04/15 0000 BIPAP 04/14 2215 78 94 04/14 1641 98.1 91 20 140/78 93 04/14 1630 96 Nasal 2.0L Cannula 04/14 1600 Nasal 2.0L Cannula Intake & Output 04/15 1600 04/15 0800 04/15 0000 Intake Total 420 Output Total 175 Balance -175 420 Intake, IV 20 Intake, Oral 400 Number 0 Bowel Movements Output, Urine 175 Physical Exam General Appearance: Alert, Oriented X3, Cooperative, Mild Distress Skin: No Significant Lesion HEENT: Atraumatic Cardiovascular: cannot assess heart sounds Lungs: was on bipap. no wheezing Abdomen: Normal Bowel Sounds, Soft, No Tenderness Neurological: Normal Speech Extremities: trace bilateral edema Current Medications: Current Medications Sig/Amadeo Start time Last Medication Dose Route Stop Time Status Admin Albuterol Sulfate 3 ML TID 04/15 1600 AC INH Albuterol Sulfate 3 ML EVERY 4 HRS/AWAKE 04/12 0800 DC 02/24 INH 0755 Atorvastatin Calcium 40 MG 1700 04/12 1700 AC 04/14 PO 1634 Docusate Sodium 100 MG TID 04/13 1000 AC 04/15 PO 0922 Escitalopram Oxalate 10 MG DAILY 04/12 1000 AC 04/15 PO 0922 Furosemide 20 MG Q48 04/13 1000 AC 04/15 PO 0922 Insulin Aspart 0 AT BEDTIME 04/14 2200 AC 04/14 SC 2128 Insulin Aspart 0 TIDAC 04/14 0800 AC 04/15 SC 0922 Insulin Detemir 10 UNITS BID 04/14 1330 AC 04/15 SC 0923 Ipratropium [place] 2.5 ML TID 04/15 1600 AC INH Ipratropium [place] 2.5 ML EVERY 4 HRS/AWAKE 04/12 0800 DC 04/15 INH 0755 Magnesium Oxide 400 MG DAILY 04/14 1345 AC 04/15 PO 0922 Methylprednisolone 40 MG Q12 04/15 2200 AC IV Methylprednisolone 40 MG Q8H 04/15 0000 DC 04/15 IV 0922 Methylprednisolone 40 MG Q8 04/14 0945 DC 04/14 IV 1634 Omeprazole 40 MG DAILY AC 04/12 0700 AC 04/15 PO 0620 Patient Medication 1 ED .STK-MED ONE 04/14 1135 [place] Teaching ED 04/14 1136 Polyethylene Glycol 17 GM DAILY 04/13 0745 AC 04/15 PO 0922 Assessment/Plan Assessment: 76-year-old male with PMH of COPD on 2Lo2, JUANITO on CPAP, [place] sp CABG, TIA, anemia, GI bleed, CKD, DM, PVD s/p stents, was brought in from [place] for lethargy and unresponsiveness. Pt was dyspneic, bipap started in ED. Pt was admitted to telemetry with the following problems addressed: # Chronic hypercarbic and hypoxic respiratory failure # Syncope with hypotension during PT at the rehab facility # Anemia #Chronic hypercarbic and hypoxic respiratory failure - ABG done in ED: 7.32/PCO2 69H/PO2 78L/ HCO3 (35), serum HCO3 39 - ABG after bipap: 7.39/PCO2 59H/PO2 87/ HCO3 (35) * Keep on nocturnal bipap * No need for repeat ABG unless pt somnolent * TRC neb * solumedrol 40q8 --> 40 q 12 today --> 40 IV once tomorrow --> then dc to rehab on prednisone 60X3,50X3,40X3,30X3,20X3,10X3 * Leukocytosis most likely due to steroids use. Hyperglycemia most likely due to steroids use. If blood sugar better controlled, can dc pt on levemir 10 bid while pt is on steroids in addition to his home meds. # Syncope most likely due to hypotension - Last echo Feb 2016: LVEF 40-45% - Looking at the W10, his coreg was discontinued Mar due to hypotension. He had 3 beat run (which he has had in the past), borderline BP (apparently his normal BP is around systolic 90s as per his son), with bradycardia up to 43 (on tele monitor), he does have EF 40-45%, with this admission being for syncope due to hypotension, we are hesitant to re-start BB. * tele discontiued after 72 hours - only significant for bradycardia down to 43 with PVCs and PACs. * Dr. Crouch consulted * Check orthostats vitals * Keep compression stockings * Serial EKG and trops negative for ACS # Anemia, with hx of GI bleed - H/H 8.6/26.5 * Guaiac all stools * Continue protonix 40 mg daily # Chronic CHF - Probnp 6300 (was 6190 earlier Mar 2016) * Continue home lasix 20 mg q48 hours # DM * Accucheck * Novolog tidac # Continue home meds: Losartan 25 mg daily Escitalopram oxalate 10 mg Crestor 10 mg Miralax # Hold home meds: Glyburide Diet: CC3 DVT ppx: mech (no pharm due to anemia) FULL CODE Problem List: 1. Chronic respiratory failure with hypoxia and hypercapnia Pain Ratin Pain Location: none Pain Goal: Remain pain free Pain Plan: none Tomorrow's Labs & Rationales: bep for co2 retention (bicarb level) mg for hypomag cbc for leukocytosis DVT/Prophylaxis: mechanical Consulting Request: Consulting Specialty: Pulmonary Disease FILIPE NIX MD 04/15/16 1156: Attending MD Review Statement Attending Statement Attending MD Statement: examined this patient, discuss w/resident/PA/ENVIRONMENTAL MONITORING TECHNICIAN, agreed w/resident/PA/ENVIRONMENTAL MONITORING TECHNICIAN, discussed with family, reviewed EMR data (avail), discussed with nursing, discussed with case mgmt, amended to note Attending Assessment/Plan: Patient seen and examined. He is resting comfortably not in acute distress. He appears more alert today. There are no issues overnight. On telemetry he does occasionally bradycardic with heart rate in the low 50s. Has been asymptomatic from this perspective. He is maintaining saturation on 2 L of oxygen. On auscultation air entry is fair bilaterally with minimal wheezing. His case was discussed with his merchandise presentation associate Nigel Valenzuela MD. We will taper his Solu-Medrol to every 12 hours today. Patient continues to do well and may be discharged back to nursing home facility tomorrow. Patient has a history of peptic ulcer disease diagnosed on endoscopy during his last admission. His hemoglobin level has been stable when compared to his discharge levels last admission. He has had no further episodes of hypotension here. Orthostatic blood pressure has been negative. He is not dehydrated. His beta benigno therapy was discontinued at the [facility] due to episodes of bradycardia. He did have episodes of ventricular ectopy during this admission but none in the past 24 hours. We'll follow-up with the cardiology service regarding addition of beta benigno therapy or if patient will contnue to be monitored off his regimen. No need to repeat CBC or serum chemistry tomorrow unless significant abnormalities are noted on today's labs.
[2016-04-15 07:56] VITALS: BP 136/94
--- NOTE | 2016-04-15 10:41 | PN- Pulmonary ---
Subjective HPI/Critical Care Issues: pt seen and examined more comfortable tolerates nocturnal bipap and sitting in chair in bed this am no n/v/d/c Objective Current Medications: Current Medications Sig/Amadeo Start time Last Medication Dose Route Stop Time Status Admin Albuterol Sulfate 3 ML EVERY 4 HRS/AWAKE 04/12 0800 AC 04/15 INH 0755 Atorvastatin Calcium 40 MG 1700 04/12 1700 AC 04/14 PO 1634 Docusate Sodium 100 MG TID 04/13 1000 AC 04/15 PO 0922 Escitalopram Oxalate 10 MG DAILY 04/12 1000 AC 04/15 PO 0922 Furosemide 20 MG Q48 04/13 1000 AC 04/15 PO 0922 Insulin Aspart 0 AT BEDTIME 04/14 2200 AC 04/14 SC 2128 Insulin Aspart 0 TIDAC 04/14 0800 AC 04/15 SC 0922 Insulin Detemir 10 UNITS BID 04/14 1330 AC 04/15 SC 0923 Ipratropium [place] 2.5 ML EVERY 4 HRS/AWAKE 04/12 0800 AC 04/15 INH 0755 Magnesium Oxide 400 MG DAILY 04/14 1345 AC 04/15 PO 0922 Methylprednisolone 40 MG Q8H 04/15 0000 AC 04/15 IV 0922 Methylprednisolone 40 MG Q8 04/14 0945 DC 04/14 IV 1634 Omeprazole 40 MG DAILY AC 04/12 0700 AC 04/15 PO 0620 Patient Medication 1 ED .STK-MED ONE 04/14 1135 [place] Teaching ED 04/14 1136 Polyethylene Glycol 17 GM DAILY 04/13 0745 AC 04/15 PO 0922 Vital Signs & I&O Last 24 Hrs of Vitals and I&O: Vital Signs Date Time Temp Pulse Resp B/P Pulse O2 O2 Flow FiO2 Ox Delivery Rate 04/15 0830 94 Nasal 2.0L Cannula 04/15 0757 96 Nasal 2.0L Cannula 04/15 0756 98.2 62 24 136/94 95 BIPAP 04/15 0737 96 04/15 0310 78 93 04/15 0034 91 86 04/15 0028 98.0 66 26 138/70 95 04/15 0000 BIPAP 04/14 2215 78 94 04/14 1641 98.1 91 20 140/78 93 04/14 1630 96 Nasal 2.0L Cannula 04/14 1600 Nasal 2.0L Cannula Intake & Output 02/24 1600 04/15 0800 04/15 0000 Intake Total 420 Output Total 175 Balance -175 420 Intake, IV 20 Intake, Oral 400 Number 0 Bowel Movements Output, Urine 175 Exam Other Physical Findings: gen awake and alert heent ncat cvs s1, s2 lungs wheezing mainly on left abd soft bs+ ext resolving edema Impression/Plan Impression/Plan Impression/Plan: Impression 76 -year-old man resident of [place], history of DM, CAD s/p CABG, COPD, chronic hypercarbic respiratory failure, on O2 at home. Systolic CHF, CVA, CKD, HTN, anemia. Admitted for syncope with chronic hypercarbic respiratory failure. Plan -change solumedrol 40mg iv q12h with monitoring finger sticks -tomorrow can change solumedrol to prednisone -prednisone 60mg po x 3 days, 50x3, 40x3, 30x3, 20x3, 10x3, then stop -continue bipap nocturnally -dvt prophylaxis at all times DC planning to [place] if does well within 24 hrs
[2016-04-15 12:49] LABS: ABSOLUTE BASOPHIL COUNT 0 /CUMM (0.0-0.2); ABSOLUTE EOSINOPHIL COUNT 0 /CUMM (0.0-0.7); ABSOLUTE LYMPH COUNT 0.7 /CUMM (1.2-3.4); ABSOLUTE MONOCYTE COUNT 0.7 /CUMM (0.10-0.60); BASOPHIL % 0 % (0.0-2.0); EOSINOPHIL % 0 % (0-5); GRANULOCYTE % 93.3 % (42.2-75.2); MEAN CORPUSCULAR HGB 28.2 PG (27.0-31.0); MEAN CORPUSCULAR HGB CONC 31.5 G/DL (33.0-37.0); MEAN CORPUSCULAR VOLUME 89.6 FL (80.0-94.0); MEAN PLATELET VOLUME 8.9 FL (7.4-10.4); PLATELET COUNT 338 /CUMM (130-400); RBC DISTRIBUTION WIDTH 16.4 % (11.5-14.5); RED BLOOD CELL CT 3.13 /CUMM (4.70-6.10)
[2016-04-15 13:29] LABS: WHITE BLOOD CELL COUNT 20.4 /CUMM (4.8-10.8)
[2016-04-15 15:55] VITALS: BP 110/50
[2016-04-16 00:09] VITALS: BP 140/62
[2016-04-16 08:45] VITALS: BP 142/64
--- NOTE | 2016-04-16 09:10 | PN- Housestaff ---
Subjective Follow-up For: syncope chronic hypoxic hypercarbic chronic hypercarbic respiratory failure Subjective: Seen and examined patient offers no complaints. States that he feels well. Review of Systems Constitutional: Denies: chills, diaphoresis, fever, malaise, weakness, unexplained weight loss. Cardiovascular: Denies: chest pain, edema, orthopena, palpitations, peripheral edema, syncope. Respiratory: Denies: cough, hemoptysis, orthopnea, short of breath, sputum production, stridor, wheezing. Objective Last 24 Hrs of Vital Signs/I&O Vital Signs Date Time Temp Pulse Resp B/P Pulse O2 O2 Flow FiO2 Ox Delivery Rate 04/16 0845 98.2 57 24 142/64 98 BIPAP 04/16 0809 Nasal 2.0L Cannula 04/16 0800 95 Nasal 2.0L Cannula 04/16 0033 64 94 04/16 0009 97.7 62 24 140/62 96 BIPAP 30% 04/16 0000 Nasal 2.0L Cannula 04/15 2213 69 97 04/15 1600 96 Nasal 2.0L Cannula 04/15 1555 98.0 82 28 110/50 91 Nasal 2.0L Cannula 04/15 1404 Nasal 2.0L Cannula 04/15 1401 Nasal 2.0L Cannula Intake & Output 04/16 1600 04/16 0800 04/16 0000 Intake Total 100 440 Output Total Balance 100 440 Intake, IV 40 Intake, Oral 100 400 Number 0 Bowel Movements Physical Exam General Appearance: Alert, Oriented X3, Cooperative, No Acute Distress Cardiovascular: Regular Rate Lungs: Clear to Auscultation, Normal Air Movement Abdomen: DISTENDED Current Medications: Current Medications Sig/Amadeo Start time Last Medication Dose Route Stop Time Status Admin Albuterol Sulfate 3 ML TID 04/15 1600 AC 04/16 INH 0759 Atorvastatin Calcium 40 MG 1700 04/12 1700 AC 04/15 PO 1713 Docusate Sodium 100 MG TID 04/13 1000 AC 04/15 PO 2108 Escitalopram Oxalate 10 MG DAILY 04/12 1000 AC 04/16 PO 0827 Furosemide 20 MG Q48 04/13 1000 AC 04/15 PO 0922 Insulin Aspart 0 AT BEDTIME 04/14 2200 AC 04/15 SC 2112 Insulin Aspart 0 TIDAC 04/14 0800 AC 04/16 SC 1244 Insulin Detemir 10 UNITS BID 04/14 1330 AC 04/16 SC 0827 Ipratropium [place] 2.5 ML TID 04/15 1600 AC 04/16 INH 0759 Magnesium Oxide 400 MG DAILY 04/14 1345 AC 04/16 PO 0826 Methylprednisolone 40 MG DAILY 04/16 1000 AC 04/16 IV 0827 Methylprednisolone 40 MG Q12 04/15 2200 DC 04/15 IV 04/15 2300 2108 Omeprazole 40 MG DAILY AC 04/12 0700 AC 04/16 PO 0700 Polyethylene Glycol 17 GM DAILY 04/13 0745 AC 04/15 PO 0922 Assessment/Plan Assessment: 76-year-old male with PMH of COPD on 2Lo2, JUANITO on CPAP, [place] sp CABG, TIA, anemia, GI bleed, CKD, DM, PVD s/p stents, was brought in from [place] for lethargy and unresponsiveness. No overnight events reported. Clinically improved problem list: # Chronic hypercarbic and hypoxic respiratory failure # Syncope with hypotension during PT at the rehab facility # Anemia #Chronic hypercarbic and hypoxic respiratory failure * Continue on nocturnal bipap * TRC neb * Will be discharged on dc to rehab on prednisone three day taper # Syncope most likely due to hypotension - Last echo Feb 2016: LVEF 40-45% * tele discontiued after 72 hours - only significant for bradycardia down to 43 with PVCs and PACs. * Beta benigno therapy is not being initiated at this time due to the episodes of hypotension which led to discontinuation of the medication at residential. * Keep compression stockings * Serial EKG and trops negative for ACS # Anemia, with hx H/h stable * Continue protonix 40 mg daily # Chronic CHF - Probnp 6300 (was 6190 earlier Mar 2016) * Continue home lasix 20 mg q48 hours # DM will be discharged on levemir 10 units, instructed to discontinue it in a week. * Accucheck * Novolog tidac # Continue home meds: Losartan 25 mg daily Escitalopram oxalate 10 mg Crestor 10 mg Miralax # Hold home meds: Glyburide Diet: CC3 DVT ppx: mech (no pharm due to anemia) FULL CODE stable for discharge today Problem List: 1. Diabetes mellitus 2. COPD 3. hypercarbic respiratory failur 4. Anemia Pain Ratin Pain Location: na Pain Goal: Pain 4 or less Pain Plan: current regimen Tomorrow's Labs & Rationales: none required Consulting Request: Consulting Specialty: Pulmonary Disease
--- NOTE | 2016-04-16 11:00 | PN- Att Addend ---
Attending Addendum Attending Brief Note patient seen and examined. Sitting up in bed comfortably him breakfast. Denies chest pain or shortness of breath at rest. No events overnight reported by nursing staff. Vital Signs Date Time Temp Pulse Resp B/P Pulse O2 O2 Flow FiO2 Ox Delivery Rate 04/16 0845 98.2 57 24 142/64 98 BIPAP 04/16 0809 Nasal 2.0L Cannula 04/16 0800 95 Nasal 2.0L Cannula 04/16 0033 64 94 04/16 0009 97.7 62 24 140/62 96 BIPAP 30% 04/16 0000 Nasal 2.0L Cannula 04/15 2213 69 97 04/15 1600 96 Nasal 2.0L Cannula 04/15 1555 98.0 82 28 110/50 91 Nasal 2.0L Cannula 04/15 1404 Nasal 2.0L Cannula 04/15 1401 Nasal 2.0L Cannula Gen. appearance: Obese, not in distress Heart: S1-S2 regular Lungs: Clear to bilaterally Abdomen: Soft, nontender Extremities: Trace pedal edema Problems: -Acute on chronic hypercapnic respiratory failure secondary to COPD -Syncope likely secondary to hypotension. Probably medication induced. -Nonsustained ventricular tachycardia -Chronic heart failure with preserved ejection fraction -Medication induced diabetes mellitus -Chronic anemia with history of peptic ulcer disease . Plan: -Patient is stable from a respiratory standpoint. He may be transitioned to oral prednisone and this will be slowly tapered off as recommended by the pulmonary service. -Hyperglycemia is secondary to steroid therapy. We anticipate improvement with tapering off his steroids. -Continue patient on high-dose sliding scale coverage and Levemir insulin 10 units twice daily until he is weaned off steroid therapy. -Beta benigno therapy is not being initiated at this time due to the episodes of hypotension which led to discontinuation of the medication at care home. Patients syncope episode was also likely secondary to hypotension. He has not had sustained episodes of ventricular ectopy during telemetry monitoring -He is medically stable to be discharged to his care home today.
--- NOTE | 2016-04-16 11:51 | PN- Pulmonary ---
Subjective HPI/Critical Care Issues: pt seen and examined doing better anticipating discharge glucose elevated however no n/v/d/c Objective Current Medications: Current Medications Sig/Amadeo Start time Last Medication Dose Route Stop Time Status Admin Albuterol Sulfate 3 ML TID 04/15 1600 AC 04/16 INH 0759 Atorvastatin Calcium 40 MG 1700 04/12 1700 AC 04/15 PO 1713 Docusate Sodium 100 MG TID 04/13 1000 AC 04/15 PO 2108 Escitalopram Oxalate 10 MG DAILY 04/12 1000 AC 04/16 PO 0827 Furosemide 20 MG Q48 04/13 1000 AC 04/15 PO 0922 Insulin Aspart 0 AT BEDTIME 04/14 2200 AC 04/15 SC 2112 Insulin Aspart 0 TIDAC 04/14 0800 AC 04/16 SC 0827 Insulin Detemir 10 UNITS BID 04/14 1330 AC 04/16 SC 0827 Ipratropium [place] 2.5 ML TID 04/15 1600 AC 04/16 INH 0759 Magnesium Oxide 400 MG DAILY 04/14 1345 AC 04/16 PO 0826 Methylprednisolone 40 MG DAILY 04/16 1000 AC 04/16 IV 0827 Methylprednisolone 40 MG Q12 04/15 2200 DC 04/15 IV 04/15 2300 2108 Omeprazole 40 MG DAILY AC 04/12 0700 AC 04/16 PO 0700 Polyethylene Glycol 17 GM DAILY 04/13 0745 AC 04/15 PO 0922 Vital Signs & I&O Last 24 Hrs of Vitals and I&O: Vital Signs Date Time Temp Pulse Resp B/P Pulse O2 O2 Flow FiO2 Ox Delivery Rate 04/16 0845 98.2 57 24 142/64 98 BIPAP 04/16 0809 Nasal 2.0L Cannula 04/16 0800 95 Nasal 2.0L Cannula 04/16 0033 64 94 04/16 0009 97.7 62 24 140/62 96 BIPAP 30% 04/16 0000 Nasal 2.0L Cannula 04/15 2213 69 97 04/15 1600 96 Nasal 2.0L Cannula 04/15 1555 98.0 82 28 110/50 91 Nasal 2.0L Cannula 04/15 1404 Nasal 2.0L Cannula 04/15 1401 Nasal 2.0L Cannula Intake & Output 04/16 1600 04/16 0800 04/16 0000 Intake Total 100 440 Output Total Balance 100 440 Intake, IV 40 Intake, Oral 100 400 Number 0 Bowel Movements Exam Other Physical Findings: gen awake and alert heent ncat cvs s1, s2 lungs wheezing mainly on left abd soft bs+ ext resolving edema Impression/Plan Impression/Plan Impression/Plan: Impression 76 -year-old man resident of [place], history of DM, CAD s/p CABG, COPD, chronic hypercarbic respiratory failure, on O2 at home. Systolic CHF, CVA, CKD, HTN, anemia. Admitted for syncope with chronic hypercarbic respiratory failure. Plan -dc solumedrol, monitor finger sticks, glucose control -prednisone 60mg po x 3 days, 50x3, 40x3, 30x3, 20x3, 10x3, then stop -continue bipap nocturnally -dvt prophylaxis at all times DC planning to [place]
[2016-04-16] MEDS ORDERED: LEVEMIR100 UNIT/1 SC (12:28)
[2016-04-16 13:07] VITALS: BP 142/64
== END 2016-04-16 15:10 | DRG 189 ==
LOC: ENRESERVTM → ENRESERVDT → ERH 13:10 → ERHI 15:08 → ENPENDDIS 15:08 → 1NO 15:08
PROVIDERS: Physician Assistant; Radiology Diagnostic Radiology; ADMIT Internal Medicine
PROC: 5A09357 Assistance with Respiratory Ventilation, Less than 24 Consecutive Hours, Continuous Positive Airway Pressure (ICD-10-PCS; principal; 2016-04-11)
DX: J96.22 Acute and chronic respiratory failure with hypercapnia (principal); I47.2 Ventricular tachycardia; E87.2 Acidosis; I13.0 Hypertensive heart and chronic kidney disease with heart failure and stage 1 through stage 4 chronic kidney disease, or unspecified chronic kidney disease; I50.22 Chronic systolic (congestive) heart failure; E66.2 Morbid (severe) obesity with alveolar hypoventilation; R55 Syncope and collapse; J44.9 Chronic obstructive pulmonary disease, unspecified; I25.2 Old myocardial infarction; I73.9 Peripheral vascular disease, unspecified; Z95.1 Presence of aortocoronary bypass graft; E78.5 Hyperlipidemia, unspecified; R00.1 Bradycardia, unspecified; Z68.34 Body mass index [BMI] 34.0-34.9, adult; N18.9 Chronic kidney disease, unspecified; E11.22 Type 2 diabetes mellitus with diabetic chronic kidney disease; Z87.891 Personal history of nicotine dependence; Z86.73 Personal history of transient ischemic attack (TIA), and cerebral infarction without residual deficits; Z79.4 Long term (current) use of insulin
CPT/HCPCS: 1NSP; 6020; 36415; 82436; 93005; 93010; 97110-GO; 97116-GO; 97161-GP; 97530-GO; 99291; C8929; G0378; J1815; J2920; Q9957

== ENCOUNTER 2016-05-17 14:24 | Inpatient (IN) | payer OTHER, MEDICARE ==
[~2016-05-17] VITALS: Ht 172.7 cm; Wt 103.4 kg
[~2016-05-17 14:24] MED LIST changes: +ADVAIR 250-501 EACH INH; +CLOPIDOGREL75 M1; +FUROSEMIDE20 M1 PO; +GLIPIZIDE5 M2 PO; +GLYBURIDE5 M1 PO; +HUMALOG100 UNIT/2 SC; +LEVEMIR100 UNIT/1 SC; +MAGNESIUM400 M1 PO; +METFORMIN HCL500 M3; +RANITIDINE HCL150 MG
--- NOTE | 2016-05-17 14:34 | NUR ---
PT BROUGHT TO ROOM 19. PT LETHARGIC. SEEN BY JATIN PHILLIPS.PT MAINTAINED ON 4 LITERS OF OXYGEN. PLACED ON HEART MONITOR AND IS IN SINUS RHYTHM. EKG DONE
--- NOTE | 2016-05-17 14:35 | ED GENERAL ADULT ---
History of Present Illness General Chief Complaint: Altered Mental Status Stated Complaint: UNRESPONSIVE EPISODE AT [place],LETHARGIC NOW Source: patient, old records, EMS Exam Limitations: no limitations, confusion, poor historian Vital Signs & Intake/Output Vital Signs & Intake/Output Vital Signs Date Time Temp Pulse Resp B/P Pulse O2 O2 Flow FiO2 Ox Delivery Rate 05/17 1930 95 05/17 1915 98.0 85 24 120/60 98 BIPAP 30% 05/17 1815 97.0 85 24 123/57 95 BIPAP 30% 05/17 1735 95 05/17 1733 95 05/17 1630 96.3 88 24 117/57 94 BIPAP 05/17 1545 94 Nasal 4.0L Cannula 05/17 1520 93 97 05/17 1428 95.7 87 40 144/55 95 Nasal 4.0L Cannula Allergies Coded Allergies: NO KNOWN ALLERGIES (04/17/15) Reconcile Medications Budesonide 0.5 MG/2 ML AMPUL.NEB 1 Vial INH/STEPHANE BID BREATHING PROBLEMS ( Reported) Escitalopram Oxalate 10 MG TABLET 1 TAB PO DAILY MENTAL HEALTH (Reported) Fluticasone/Salmeterol (Advair 250-50 Diskus) 250 MCG-50 MCG/DOSE BLST.W.DEV 1 PUF INH BID COPD (Reported) Furosemide 20 MG TABLET 1 TAB PO Q48 WATER PILL (Reported) Glipizide 5 MG TABLET 1 TAB PO DAILY DM (Reported) Insulin Detemir (Levemir) 100 UNIT/ML VIAL 10 UNITS SC BID diabetes please continue levemir for the next 6 days and stop on april 22, 2016 Insulin Lispro (Humalog) 100 UNIT/ML VIAL DM (Reported) 151-200 2 U 201-250 4 U 251-300 6 U 301-350 8 U 351-400 10 U >400 or < 60 call Ipratropium/Albuterol Sulfate (Iprat-Albut 0.5-3(2.5) MG/3 Ml) 3 ML AMPUL.NEB 1 AMP INH 4 TIMES/DAY COPD (Reported) Magnesium Oxide (Magnesium) 400 MG CAPSULE 1 CAP PO DAILY Low Mag Pantoprazole Sodium (Protonix) 40 MG TABLET.DR 1 TAB PO DAILY DUODENAL ULCER Polyethylene Glycol 3350 (Miralax) 17 GRAM POWD.PACK 1 PAC PO DAILY CONSTIPATION dissolve in water Rosuvastatin Calcium (Crestor) 10 MG TABLET 1 TAB PO QPM CHOLESTEROL ( Reported) Sennosides (Senna) 8.6 MG TABLET 1 TAB PO 1600 CONSTIPATION (Reported) Tiotropium [place] (Spiriva) 18 MCG CAP.W.DEV 1 CAP INH DAILY BREATHING PROBLEMS (Reported) Triage Note: [facility]. PER EMS REPORT PT HAS EPISODE OF UNRESPONSIVENESS AT REHAB. STAFF PLACED HIM ON BIPAP FOR A WHILE AND CALLED EMS. UPON ARRIVAL TO ED PT TACHYPNIC AND LETHARGIC. AROUSABLE TO VERBAL STIMULI AND ANSWERS QUESTIONS. DENIES RESP DISTRESS OR PAIN Triage Nurses Notes Reviewed? yes Unable To Obtain Hx Due To: patient confusion Onset: Gradual Duration: day(s): (1) Timing: recent history Injury Environment: home Severity: moderate Severity Numbers: 6 No Modifying Factors: none Associated Symptoms: cough HPI: Patient is a 76-year-old male with history of COPD history of acute respiratory failure and hypoxia, and anemia and dysphagia presenting to the emergency department via nursing facility for chief complaint of unresponsiveness. Per W 10 this has happened to the patient before. He tried BiPAP with no relief. Vital signs on transfer were stable. This episode of unresponsiveness happened this morning. BiPAP was put in place patient remained lethargic. Per respiratory therapist patient is retaining CO2 and during the night is not wearing his BiPAP. Patient also has history of taking off the nasal cannula. Patient denying any chest pain. Patient denying any shortness of breath. No abdominal pain. (ALBA PHILLIPS,JATIN) Past History Medical History Any Pertinent Medical History? 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 FH: diabetes mellitus MOTHER FH: breast cancer SISTER, ; Cause: Motor vehicle accident. BROTHER, ; Cause: Cancer. FH: cancer Hx Contributory? No (JATIN HERNANDEZ) Review of Systems Review of Systems Constitutional: Reports: malaise, weakness. Comments Review of systems: See HPI, All other systems negative. Constitutional, no chills fever or weight loss HEENT: No visual changes no sore throat Cardiovascular: No chest pain ,palpitation , orthopnea or ankle swelling Skin, no jaundice no rashes Respiratory: No hemoptysis GI: No nausea no vomiting : No dysuria No hematuria Muscle skeletal: no back pain, no neck pain, Neurologic: No numbness no francois Psych: No stress anxiety or depression,. Heme/endocrine: No bruising no bleeding no polyuria or polydipsia Immunology: No splenectomy or history of AIDS (JATIN HERNANDEZ) Physical Exam Physical Exam General Appearance: lethargic, mild distress, obese Comments: Obese person in mild respiratory distress HEENT: extraocular motion intact, no nystagmus. Pupils equally round and reactive to light and accommodation. Nose is atraumatic. External auditory canal and Tympanic membranes clear. Pharynx normal. No swelling or edema. Very dry oral mucosa. Neck: Large, Supple, no lymphadenopathy Cardiovascular: Regular rate and rhythms no murmurs rubs or gallops, normal JVP Respiratory: Chest nontender. Mild respiratory distress.breath sounds diminished to auscultation bilaterally. Increased work of breathing. Abdominal breathing on exam. Abdomen: Soft, obese, no rebound or guarding, nontender nondistended, no appreciable organomegaly. Normal bowel sounds. No ascites Extremity: No edema, no calf tenderness to palpation, normal and equal pulses. Neuro: Alert oriented to person and place, very lethargic, arousable to verbal and tactile stimuli, motor sensory normal, cranial nerves II through XII grossly intact. No focal deficits, patient needs to be redirected for exam and will then out several times. Skin: No appreciable rashes, warm, dry. Psych: Lethargic, while awake appears within normal range. Core Measures ACS in differential dx? Yes CVA/TIA Diagnosis: No Severe Sepsis Present: No Septic Shock Present: No (JATIN HERNANDEZ) Progress Differential Diagnoses I considered the following diagnoses in my evaluation of the patient: Pneumonia , bronchitis, hypercarbic respiratory failure Plan of Care: Orders Procedure Date/time Status Nothing by Mouth 05/18 B Active URINALYSIS 05/17 2008 Active VRE ACTIVE SURVIELLANCE 05/17 1946 Active ACTIVE SURVEILLANCE NARES 05/17 1946 Active Lab Add-on Test 05/17 1918 Active Patient Data 05/17 1814 Active Vital Signs 05/17 1726 Active Code Status 05/17 1726 Active Admit to inpatient 05/17 1725 Active Patient Data 05/17 1633 Active Intake & Output 05/17 1459 Active VIT D 25 HYDROXY 05/17 1454 Active THYROID STIMULATING HORMONE 05/17 1454 Active FREE T4 05/17 1454 Active FOLIC ACID 05/17 1454 Active C-REACTIVE PROTEIN 05/17 1454 Active B-TYPE NATRIURETIC PEP (BNP) 05/17 1454 Active VITAMIN B12 05/17 1454 Active LACTIC ACID 05/17 1445 Complete ARTERIAL BLOOD GAS (GEN) 05/17 1434 Active Telemetry/Contact Lens Inspector 05/17 1434 Active BLOOD CULTURE 05/17 1434 Active TROPONIN LEVEL 05/17 1434 Active PARTIAL THROMBOPLASTIN TIME 05/17 1434 Complete PROTHROMBIN TIME 05/17 1434 Complete COMPREHENSIVE METABOLIC PANEL 05/17 1434 Active CBC WITHOUT DIFFERENTIAL 05/17 1434 Complete EKG 05/17 1427 Active Laboratory Tests 05/17/16 1745: Lactic Acid Cancelled 05/17/16 1725: pH 7.43, pCO2 55 H, pO2 73 L, HCO3 35 H, ABG O2 Sat (Measured) 95.0 L, P-50 (Temp Corrected) Y, Carboxyhemoglobin 0.4 L, O2 Concentration % 30, Temperature 96.3 L, Respiration Rate 24, O2 Delivery Method BIPAP, Vent Mode ST, Expiratory Pressure 6, Inspiratory Pressure 20, Phlebotomy Draw Site LEFT RADIAL 05/17/16 1520: pH 7.38, pCO2 65 *H, pO2 94, HCO3 37 H, ABG O2 Sat (Measured) 97.0, Carboxyhemoglobin 0.2 L, O2 Concentration % 3.5L, O2 Delivery Method NC, Phlebotomy Draw Site LEFT RADIAL 05/17/16 1454: Lactic Acid 1.4 05/17/16 1454: Anion Gap 9, Estimated GFR 31 L, BUN/Creatinine Ratio 13.8, Glucose 185 H, Calcium 8.4, Total Bilirubin 0.6, AST 34, ALT 458 H, Alkaline Phosphatase 93, Troponin I 0.06, C-Reactive Prot, Quant Pending, Qpa-T-Ctcnnzraxij Pept Pending, Total Protein 5.7 L, Albumin 3.0 L, Globulin 2.7, Albumin/Globulin Ratio 1.1, Vitamin B12 Pending, 25-OH Vitamin D Total Pending, Folate Pending, TSH Pending, Free T4 Pending, PT 12.3, INR 1.17, APTT 26, CBC w Diff NO MAN DIFF REQ, RBC 3.48 L, MCV 88.7, MCH 28.2, RDW 16.8 H, MPV 9.1, Gran % 79.9 H, Lymphocytes % 10.4 L, Monocytes % 9.0, Eosinophils % 0.7, Basophils % 0 L, Absolute Granulocytes 9.2 H, Absolute Lymphocytes 1.2, Absolute Monocytes 1.0 H, Absolute Eosinophils 0.1, Absolute Basophils 0, PUBS MCHC 31.8 L Microbiology 05/17 1946 UPPER RESP: Surveillance Culture - COLB 05/17 1946 GI: Surveillance Culture - COLB 05/17 1507 BLOOD: Blood Culture - RECD 05/17 1454 BLOOD: Blood Culture - RECD Diagnostic Imaging: Viewed by Me: Radiology Read. Discussed w/RAD: Radiology Read. Radiology Impression: ATIENT: FLORENTINO MARIE PRESENT AGE: 76 PATIENT ACCOUNT NO: [id number] : 41 LOCATION: [facility] ORDERING PHYSICIAN: JATIN PHILLIPS SERVICE DATE: 05/17/16 EXAM TYPE: RAD - XRY-PORTABLE CHEST XRAY EXAMINATION: XR PORTABLE CHEST CLINICAL INFORMATION: Evaluate for pneumonia COMPARISON: Multiple prior chest x-rays most recent prior dated 04/12/2016 TECHNIQUE: Portable AP view of the chest was obtained. FINDINGS : Status post median sternotomy and CABG. Patient is slightly rotated to the left. Stable cardiomegaly. Interval increase in the opacity noted in the left lower lung compatible with small left effusion with associated left basilar consolidation. Findings may represent pneumonia. Mild degenerative changes of the thoracic spine. IMPRESSION: Left basilar consolidation and small left effusion. Findings may represent pneumonia in the appropriate clinical setting. Repeat chest x-ray after treatment is recommended. DICTATED BY: EVER MARTINEZ MD DATE/TIME DICTATED:05/17/161448 DISABILITY LIAISON OFFICER:JOSUE DATE/TIME TRANSCRIBED:05/17/161448 CONFIDENTIAL, DO NOT COPY WITHOUT APPROPRIATE AUTHORIZATION. <Electronically signed in Other Vendor System> SIGNED BY: EVER MARTINEZ MD 05/17/16 8534 Initial ED EKG: SINUS RHYTHM AT 80 BPM, ARTERIAL PREMATURE COMPLEXES Prior EKG: unchanged Comments: 05/17/2016 3:30:20 PM on arrival patient in mild respiratory distress, increased work of breathing and abdominal breathing. Diffuse decrease in lung sounds bilaterally. He she'll have breathing treatment, chest x-ray. Respiratory pH for ABG and BiPAP placement. 05/17/2016 4:26:52 PM patient will be admitted to medicine for hypercapnic respiratory failure, pneumonia. Patient treated with vancomycin and ceftaz edema secondary to recent [facility] stay. Will also reassess ABG after BiPAP. (JATIN HERNANDEZ) Departure Departure Time of Disposition: 1520 Disposition: STILL A PATIENT Condition: Stable Clinical Impression Primary Impression: Hypercapnic respiratory failure Qualifiers: Chronicity: acute on chronic Qualified Code: J96.22 - Acute and chronic respiratory failure with hypercapnia Secondary Impressions: Acute kidney injury Pneumonia Qualifiers: Pneumonia type: due to unspecified organism Laterality: left Lung location: lower lobe of lung Qualified Code: J18.1 - Lobar pneumonia, unspecified organism Referrals: ELLA GARCIA MD (PCP/Family) Departure Forms: Customer Survey General Discharge Information Admission Note Spoke With: SANDRA BELTRE MD Documentation of Exam: Documentation of any treatments & extenuating circumstances including Concerns Regarding Discharge (functional status, medication knowledge or non-compliance, living conditions, etc.) that warrant an admission rather than observation: Patient requiring IV antibiotics, serial DuoNeb treatments, BiPAP, serial ABGs, respiratory consultation, blood cultures to return. Discharged at this time would be medically harmful which could and in . Patient is a full code. Slow IV hydration for acute renal failure. Repeat CMP's. (JATIN HERNANDEZ) PA/LEGAL RESEARCH ANALYST Co-Sign Statement Statement: ED Attending supervision documentation- [x] I saw and evaluated the patient. I have also reviewed all the pertinent lab results and diagnostic results. I agree with the findings and the plan of care as documented in the PA's/LEGAL RESEARCH ANALYST's documentation. [] I have reviewed the ED Record and agree with the PA's/LEGAL RESEARCH ANALYST's documentation. [] Additions or exceptions (if any) to the PAs/LEGAL RESEARCH ANALYST's note and plan are summarized below: [] I have seen and personally examined the patient and I agree with the treating PAs evaluation. The patient was awake, and alert and reasonably comfortable on BiPAP on my exam. He did have an elevated CO2. He remained somewhat sleepy. He was admitted to the ICU for further care for hypercarbic respiratory failure. (MARSHALL ANDREWS DO) Critical Care Note Critical Care Note Critical Care Time: 30-74 min (JATIN HERNANDEZ)
[2016-05-17] MEDS ORDERED: BUDESONIDE0.5 MG/21 INH/SOL (14:40)
[2016-05-17] MEDS ORDERED: SENNA8.6 M3 PO (14:42)
--- NOTE | 2016-05-17 14:53 | RADIOLOGY REPORT ---
EXAMINATION: XR PORTABLE CHEST CLINICAL INFORMATION: Evaluate for pneumonia COMPARISON: Multiple prior chest x-rays most recent prior dated 04/12/2016 TECHNIQUE: Portable AP view of the chest was obtained. FINDINGS: Status post median sternotomy and CABG. Patient is slightly rotated to the left. Stable cardiomegaly. Interval increase in the opacity noted in the left lower lung compatible with small left effusion with associated left basilar consolidation. Findings may represent pneumonia. Mild degenerative changes of the thoracic spine. IMPRESSION: Left basilar consolidation and small left effusion. Findings may represent pneumonia in the appropriate clinical setting. Repeat chest x-ray after treatment is recommended.
--- NOTE | 2016-05-17 14:56 | NUR ---
IV STARTED BY GIDEON DUGGAN. RT IN TO GIVE NEB TX AND DRAW ABGS
--- NOTE | 2016-05-17 14:58 | NUR ---
PT INFORMED OF PNEUMONIA PER XRAY AND PLAN TO ADMIT TO HOSPITAL
[2016-05-17 15:10] LABS: ABSOLUTE BASOPHIL COUNT 0 /CUMM (0.0-0.2); ABSOLUTE EOSINOPHIL COUNT 0.1 /CUMM (0.0-0.7); ABSOLUTE GRANULOCYTE CT 9.2 /CUMM (1.4-6.5); ABSOLUTE LYMPH COUNT 1.2 /CUMM (1.2-3.4); BASOPHIL % 0 % (0.0-2.0); EOSINOPHIL % 0.7 % (0-5); GRANULOCYTE % 79.9 % (42.2-75.2); HEMATOCRIT 30.9 % (42-52); MEAN CORPUSCULAR HGB 28.2 PG (27.0-31.0); MEAN CORPUSCULAR HGB CONC 31.8 G/DL (33.0-37.0); MEAN CORPUSCULAR VOLUME 88.7 FL (80.0-94.0); MEAN PLATELET VOLUME 9.1 FL (7.4-10.4); PLATELET COUNT 214 /CUMM (130-400); RBC DISTRIBUTION WIDTH 16.8 % (11.5-14.5); RED BLOOD CELL CT 3.48 /CUMM (4.70-6.10); WHITE BLOOD CELL COUNT 11.6 /CUMM (4.8-10.8)
[2016-05-17 15:18] LABS: PT 12.3 SEC (9.4-12.5); PTT 26 SEC (25-37)
--- NOTE | 2016-05-17 15:55 | NUR ---
PT LOGROLLED FOR ERASMO CARE. WET DIAPER REMOVED. BLUE PAD PLACED UNDER PT. NO SKIN BREAKDOWN OR REDNESS NOTED ON SACRAL/BUTTOCKS AREA
--- NOTE | 2016-05-17 15:56 | NUR ---
PT ON BIPAP
--- NOTE | 2016-05-17 17:14 | NUR ---
RT TO BEDSIDE FOR REPEAT ABG.
--- NOTE | 2016-05-17 18:02 | NUR ---
BED ASSIGNMENT [id number]
--- NOTE | 2016-05-17 18:17 | NUR ---
PER SERO PT WILL BE UPGRADED TO ICU.
--- NOTE | 2016-05-17 18:40 | NUR ---
RESPIRATORY PAGED TO HELP TRANSPORT PT TO CAT SCAN. ICU RESIDENTS TO BEDSIDE FOR EVAL.
--- NOTE | 2016-05-17 18:51 | History & Physical ---
General Information and HPI Allergies/Medications Allergies: Coded Allergies: NO KNOWN ALLERGIES (04/17/15) Home Med list Budesonide 0.5 MG/2 ML AMPUL.NEB 1 Vial INH/STEPHANE BID BREATHING PROBLEMS ( Reported) Escitalopram Oxalate 10 MG TABLET 1 TAB PO DAILY MENTAL HEALTH (Reported) Fluticasone/Salmeterol (Advair 250-50 Diskus) 250 MCG-50 MCG/DOSE BLST.W.DEV 1 PUF INH BID COPD (Reported) Furosemide 20 MG TABLET 1 TAB PO Q48 WATER PILL (Reported) Glipizide 5 MG TABLET 1 TAB PO DAILY DM (Reported) Insulin Detemir (Levemir) 100 UNIT/ML VIAL 10 UNITS SC BID diabetes please continue levemir for the next 6 days and stop on april 22, 2016 Insulin Lispro (Humalog) 100 UNIT/ML VIAL DM (Reported) 151-200 2 U 201-250 4 U 251-300 6 U 301-350 8 U 351-400 10 U >400 or < 60 call Ipratropium/Albuterol Sulfate (Iprat-Albut 0.5-3(2.5) MG/3 Ml) 3 ML AMPUL.NEB 1 AMP INH 4 TIMES/DAY COPD (Reported) Magnesium Oxide (Magnesium) 400 MG CAPSULE 1 CAP PO DAILY Low Mag Pantoprazole Sodium (Protonix) 40 MG TABLET.DR 1 TAB PO DAILY DUODENAL ULCER Polyethylene Glycol 3350 (Miralax) 17 GRAM POWD.PACK 1 PAC PO DAILY CONSTIPATION dissolve in water Rosuvastatin Calcium (Crestor) 10 MG TABLET 1 TAB PO QPM CHOLESTEROL ( Reported) Sennosides (Senna) 8.6 MG TABLET 1 TAB PO 1600 CONSTIPATION (Reported) Tiotropium [place] (Spiriva) 18 MCG CAP.W.DEV 1 CAP INH DAILY BREATHING PROBLEMS (Reported) Past History Travel History Traveled to [place] past 21 day No Medical History Neurological: TIA, essential tremor EENT: NONE Cardiovascular: CAD, hypertension, hyperlipidemia, myocardial infarction, systolic CHF Respiratory: COPD, obstructive sleep apnea, pneumonia Gastrointestinal: NONE Hepatic: NONE Renal: chronic kidney disease Musculoskeletal: NONE Psychiatric: NONE Endocrine: diabetes, obesity Blood Disorders: anemia Cancer(s): NONE 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 FH: diabetes mellitus MOTHER FH: breast cancer SISTER, ; Cause: Motor vehicle accident. BROTHER, ; Cause: Cancer. FH: cancer Psychosocial History Who Do You Live With? child Services at Home: [employer] Primary Language: Turkmen ETOH Use: denies use Living Will? yes Power of Trouble Locater/HCP? yes Name of POA/HCP: Pt's son Alejo David [phone] Functional Ability ADLs Independent: eating. Unknown: dressing, toileting, bathing. Ambulation: non-ambulatory IADLs Independent: telephone. Unknown: shopping, housework, finances, food prep, transportation, medication admin. Assessment/Plan Assessment: 76-year-old male with PMH of COPD on 2Lo2, JUANITO on CPAP, [place] sp CABG, TIA, anemia, GI bleed, CKD, DM, PVD s/p stents, was brought in from [place] for lethargy and unresponsiveness. As per W10, pt was not answering questions while in therapy. He was also noted to be dyspneic, with Bp of 70/40. Core Measures/Miscellaneous Acute Coronary Syndrome ACS Diagnosis: No Cerebrovascular Accident CVA/TIA Diagnosis: No Congestive Heart Failure CHF Diagnosis: No Venous Thromboembolism VTE Risk Factors: Acute medical illness, Age > 40 [facility] prophylaxis d/t: No contraindications No VTE Pharm Prophylaxis d/t: No contraindications VTE Diagnosis: No VTE Type: NONE VTE Confirmed by (Test): NONE Severe Sepsis Severe Sepsis Present: No Septic Shock Septic Shock Present: No Miscellaneous Documentation Attending Case Discussed With: SANDRA BELTRE MD Primary Care Physician: ELLA GARCIA MD Patient sees these Specialists . Level of Patient Care: Critical Care (CRI)
--- NOTE | 2016-05-17 19:15 | NUR ---
[facility] ASSIGNMENT [phone]
--- NOTE | 2016-05-17 19:17 | CT SCAN REPORT ---
EXAMINATION: CT HEAD WITHOUT CONTRAST CLINICAL INFORMATION: Altered mental status. Assess for stroke. COMPARISON: CT scan of the head 02/15/2010. TECHNIQUE: Contiguous axial imaging was performed from the skull base to vertex without intravenous administration of contrast. Imaging is degraded by patient motion artifact on some slices. DLP: 1027.93 mGy-cm FINDINGS: There is no evidence of acute intracranial hemorrhage or territorial infarction. No abnormal mass effect or midline shift is seen. Dobbs to white matter differentiation is well preserved. No extra-axial fluid collections are identified. There has been interval moderate increase in the size of the ventricles with commensurate sulcal prominence consistent with evolving moderate diffuse volume loss. There are extensive areas of low attenuation in the periventricular and subcortical white matter, most consistent with chronic microvascular ischemic disease which have increased compared to the prior study. Chronic bilateral thalamic infarcts are seen. There are sequelae of an old infarct in the left cerebellar hemisphere. The osseous structures and soft tissues are normal. There are atheromatous calcifications of the cavernous internal carotid and vertebral arteries bilaterally. There is trace fluid at the left mastoid tip. The paranasal sinuses are well-aerated. IMPRESSION: 1. There are no acute bleeds or infarcts. 2. There are changes consistent with progressive moderate diffuse volume loss, and there is now relatively extensive microvascular ischemic change in the periventricular and subcortical white matter. 3. The study redemonstrates bilateral thalamic and left cerebellar chronic infarcts.
--- NOTE | 2016-05-17 19:31 | History & Physical ---
RAMÍREZ ORO 05/17/16 9017: General Information and HPI MD Statement: I have seen and personally examined FLORENTINO DAVID and documented this H&P. The patient is a 76 year old M who presented with a patient stated chief complaint of [lethargy]. Source of Information: old records Exam Limitations: unable to give history, clinical condition, confusion, poor historian History of Present Illness: 76 yo M, resident of [place], was sent to ED for lethargy and confusion. He has PMH significant for T2DM, CAD s/p CABG, COPD on 2L, systolic CHF, CVA, JUANITO on CPAP, CKD stage 3B, HTN, multiple hospital and ICU admissions for CHF and COPD execerabtion (June 2015, Feb and Mar 2016 for with similar presentation). According to W10 reporta dnreport from alf, patient was found to be more drowsy and lethargic, however he did not have any feverm NVD, sick contact, increased sputum production. He was rushed into ED by ambulance. His initial ABG was 7.38/65/94/37, which is slightly worse than his baseline. Knowing his prior Hx, put him at risk for impending respiratory failure, thorugh, he was started on BiPap at 3 pm for two-hour follow up ABG showed 7.42/55/73/35. However, patient remained drowsy and lethargic but arousible (w/o obvious change /improvement in his mentation). Patient underwent extenssive work up in the ED. In his CBC it was found that he has WBC count of 11.6 and nrmal PLt count. His BEP showed Cr lvl of 2.1 from his baseline 1.5. Her troponin was negative, LA 1.4, AG 9, ALT 458. ProBNP is pending. CXR showed Left basilar consolidation and small left effusion. Due to his clinical condition there was a question regarding CVA. CT scan was done which did not show any new pathologic changes. initial Vital signs: 98/85/24/120/60/BIPAP 30 Patient was transferred to ICU due to lethargy and worsenig respiratory status, with minimal improvement on BiPaP. However ABG showed marked correction after BiPaP use. Allergies/Medications Allergies: Coded Allergies: NO KNOWN ALLERGIES (04/17/15) Home Med list Budesonide 0.5 MG/2 ML AMPUL.NEB 1 Vial INH/STEPHANE BID BREATHING PROBLEMS ( Reported) Escitalopram Oxalate 10 MG TABLET 1 TAB PO DAILY MENTAL HEALTH (Reported) Fluticasone/Salmeterol (Advair 250-50 Diskus) 250 MCG-50 MCG/DOSE BLST.W.DEV 1 PUF INH BID COPD (Reported) Furosemide 20 MG TABLET 1 TAB PO Q48 WATER PILL (Reported) Glipizide 5 MG TABLET 1 TAB PO DAILY DM (Reported) Insulin Detemir (Levemir) 100 UNIT/ML VIAL 10 UNITS SC BID diabetes please continue levemir for the next 6 days and stop on april 22, 2016 Insulin Lispro (Humalog) 100 UNIT/ML VIAL DM (Reported) 151-200 2 U 201-250 4 U 251-300 6 U 301-350 8 U 351-400 10 U >400 or < 60 call Ipratropium/Albuterol Sulfate (Iprat-Albut 0.5-3(2.5) MG/3 Ml) 3 ML AMPUL.NEB 1 AMP INH 4 TIMES/DAY COPD (Reported) Magnesium Oxide (Magnesium) 400 MG CAPSULE 1 CAP PO DAILY Low Mag Pantoprazole Sodium (Protonix) 40 MG TABLET.DR 1 TAB PO DAILY DUODENAL ULCER Polyethylene Glycol 3350 (Miralax) 17 GRAM POWD.PACK 1 PAC PO DAILY CONSTIPATION dissolve in water Rosuvastatin Calcium (Crestor) 10 MG TABLET 1 TAB PO QPM CHOLESTEROL ( Reported) Sennosides (Senna) 8.6 MG TABLET 1 TAB PO 1600 CONSTIPATION (Reported) Tiotropium [place] (Spiriva) 18 MCG CAP.W.DEV 1 CAP INH DAILY BREATHING PROBLEMS (Reported) Past History Travel History Traveled to [place] past 21 day No Medical History Neurological: TIA, essential tremor EENT: NONE Cardiovascular: CAD, hypertension, hyperlipidemia, myocardial infarction, systolic CHF Respiratory: COPD, obstructive sleep apnea, pneumonia Gastrointestinal: NONE Hepatic: NONE Renal: chronic kidney disease Musculoskeletal: NONE Psychiatric: NONE Endocrine: diabetes, obesity Blood Disorders: anemia Cancer(s): NONE VERIFICATION CLERK/Reproductive: NONE History of MRSA: No History of VRE: No History of CDIFF: No Influenza Vaccine: 12/22/15 Surgical History Surgical History: CABG (x 3- 2010 @ [facility]), back surgery surgeries in bilateral shoulders right knee surgery Past Family/Social History Family History Relations & Conditions if any FATHER, ; Cause: MVA (motor vehicle accident). FH: diabetes mellitus MOTHER FH: breast cancer SISTER, ; Cause: Motor vehicle accident. BROTHER, ; Cause: Cancer. FH: cancer Psychosocial History Who Do You Live With? child Services at Home: [facility] Primary Language: Peruvian ETOH Use: denies use Living Will? yes Power of Self Pay Specialist/HCP? yes Name of POA/HCP: Pt's son Alejo David [phone] Functional Ability ADLs Independent: eating. Unknown: dressing, toileting, bathing. Ambulation: non-ambulatory IADLs Independent: telephone. Unknown: shopping, housework, finances, food prep, transportation, medication admin. Review of Systems Review of Systems Constitutional: Reports: see HPI. Respiratory: Reports: see HPI. Musculoskeletal: Reports: see HPI. All Other Systems: Reviewed and Negative Comments Patient is confused and disoriented. He is verbal and responssive to verbal command but has could not provide information. Exam & Diagnostic Data Last 24 Hrs of Vital Signs/I&O Vital Signs Date Time Temp Pulse Resp B/P Pulse O2 O2 Flow FiO2 Ox Delivery Rate 05/17 1915 98.0 85 24 120/60 98 BIPAP 30% 05/17 1815 97.0 85 24 123/57 95 BIPAP 30% 05/17 1735 95 05/17 1733 95 05/17 1630 96.3 88 24 117/57 94 BIPAP 05/17 1545 94 Nasal 4.0L Cannula 05/17 1520 93 97 05/17 1428 95.7 87 40 144/55 95 Nasal 4.0L Cannula Intake & Output 05/17 1600 05/17 0800 05/17 0000 Intake Total Output Total Balance Patient 217 lb Weight Physical Exam General Appearance Mild Distress, confused, disoriented Skin No Rashes, No Breakdown HEENT PERRLA, MM are slightly dry Neck No JVD, No LAD Lymphatic Axillary nl, Cervical nl Cardiovascular Normal S1, Normal S2 Lungs on BiPaP, no crackle no wheezing Abdomen Soft Neurological not obtainable, reflexes: +2 X4 limbs Extremities No Edema Vascular Normal Pulses, Pulses Symmetrical Last 24 Hrs of Labs/[place]: Laboratory Tests 05/17/16 1745: Lactic Acid Cancelled 05/17/16 1725: pH 7.43, pCO2 55 H, pO2 73 L, HCO3 35 H, ABG O2 Sat (Measured) 95.0 L, P-50 (Temp Corrected) Y, Carboxyhemoglobin 0.4 L, O2 Concentration % 30, Temperature 96.3 L, Respiration Rate 24, O2 Delivery Method BIPAP, Vent Mode ST, Expiratory Pressure 6, Inspiratory Pressure 20, Phlebotomy Draw Site LEFT RADIAL 05/17/16 1520: pH 7.38, pCO2 65 *H, pO2 94, HCO3 37 H, ABG O2 Sat (Measured) 97.0, Carboxyhemoglobin 0.2 L, O2 Concentration % 3.5L, O2 Delivery Method NC, Phlebotomy Draw Site LEFT RADIAL 05/17/16 1454: Lactic Acid 1.4 05/17/16 1454: Anion Gap 9, Estimated GFR 31 L, BUN/Creatinine Ratio 13.8, Glucose 185 H, Calcium 8.4, Total Bilirubin 0.6, AST 34, ALT 458 H, Alkaline Phosphatase 93, Troponin I 0.06, C-Reactive Prot, Quant Pending, [id number]-R-[id number] Pept Pending, Total Protein 5.7 L, Albumin 3.0 L, Globulin 2.7, Albumin/Globulin Ratio 1.1, Vitamin B12 Pending, 25-OH Vitamin D Total Pending, Folate Pending, TSH Pending, Free T4 Pending, PT 12.3, INR 1.17, APTT 26, CBC w Diff NO MAN DIFF REQ, RBC 3.48 L, MCV 88.7, MCH 28.2, RDW 16.8 H, MPV 9.1, Gran % 79.9 H, Lymphocytes % 10.4 L, Monocytes % 9.0, Eosinophils % 0.7, Basophils % 0 L, Absolute Granulocytes 9.2 H, Absolute Lymphocytes 1.2, Absolute Monocytes 1.0 H, Absolute Eosinophils 0.1, Absolute Basophils 0, PUBS MCHC 31.8 L Microbiology 05/17 1507 BLOOD: Blood Culture - RECD 05/17 1454 BLOOD: Blood Culture - RECD Diagnostic Data CXR Results Left basilar consolidation and small left effusion. Findings may represent pneumonia in the appropriate clinical setting. Repeat chest x-ray after treatment is recommended. Other Results 1. There are no acute bleeds or infarcts. 2. There are changes consistent with progressive moderate diffuse volume loss, and there is now relatively extensive microvascular ischemic change in the periventricular and subcortical white matter. 3. The study redemonstrates bilateral thalamic and left cerebellar chronic infarcts. Assessment/Plan Assessment: Assesment 76-year-old obese man with history of coronary artery disease status post CABG, congestive heart failure with reduced ejection fraction of 30% (echo on 2016) and 50% on echo in 2017, COPD on 2 home oxygen and obstructive sleep apnea on CPAP, CTD stage IIIB, and multiple admission due to congestive heart failure and COPD was admitted for what seemingly looks like a combination acute on chronic hypercapnic respiratory failue and sepsis by SOFA criteria. Pertinent Data Labs: WBC 11.5, CXR: enlarged cardiac silhouette, no pulmonary edema or consolidation. EKG: SR, Normal axis, Q wave in inferior leads (old NC), no acute ST, T segment change initial ABG was 7.38/65/94/37>>>>2 h of BIPAO>>follow up ABG showed 7.42/55/73/ 35 WBC:11.6 and nrmal PLt count. His BEP showed Cr lvl of 2.1 from his baseline 1.5. Her troponin was negative, LA 1.4, AG 9, ALT 458. SOFA score 4. ProBNP is pending. CXR showed Left basilar consolidation and small left effusion. Due to his clinical condition there was a question regarding CVA. Echo (2015): EF 30% Mar 2016 LV EF% 50 RV pressure of 46 and mild TR List of active problems #1 acute on chronic respiratory failure due to COPD exacerbation and baselien pulmonary HTN secondary to hypoventilation syndrome and JUANITO #2 Altered mental status: my line of thinking is CVA, metabolic encephalopathy ( drugs particulary opiods), Sepsis #3 Sepsis with SOFA of 4-5, not in shock or eveidence of organ hypoperfusion. Most possibly 2/2 to pneumonia #4 heart failure with reduced ejection fraction- semmingly stable, patient is not overloaded. #5 ARF on CKD Respiratory: Acute on chronic Hypoxic respiratory failure with improvement on BiPAP. This CO2 is very close, if it is not the exacet, baseline CO2 for him. His ABG very well improved on BiPaP and I do not foresee any new change. Due to her advance JUANITO and OHS patient has chronic respiratory failure w/ baseline CO2 of high 50s. His pneumonia, though, seems to be the leading cause of his, slightly, worsened heypercapnia. I did not find any evidence to prrove that his CHF has actively contributed to his presentation. He has elevated proBNP w/ edema or crackle in her lungs, no S3 or S4, and no pulmonary edema. Looking to her past records, it seems that she had baseline high BNP lvl. Does not seem to have acute cOPD exacerbation, so, that I would not start solumedrol. * Admit to ICU fro close observation * nothing by mouth * BiPAP over night and repeat ABG in the am * D/C all the inhalers- Symbicort and Spiriva * IV azithromycin 250 mg IV daily for anti-inflammatory properties * Stop by mouth medications due to altered mental status and increased risk of aspiration; assess per medical team in the am to re-start meds * stop all his INH for tonight * Duo neb Q4 as needed * Keep the bed elevated at 45 * Aspiration precaution * IV protonix Pulmonary HTN secondary to COPD+ JUANITO and OHS with RV pressure of 46. * continue BiPaP for tonight * Continue CPaP from tomorrow night per respiratory team Infectious disease: Sepsis w/ SOFA of 4-5 and no negative lactic acid. We are treating HCAP as possible source for his sepsis. * MAP> 70 off pressors; all his anti-HTN meds are held * Daily CBC * Follow Microbiology results * Urine legionella and Strep Ag * Flue swab * Ceftazidime 2000 mg IV q12 * Vancomycin 1500 mg IV daily * NS 1000 ml 75 ml /h * Repeat CXR in the am * if became hypotensive; MAP< 65 mmhg and did not respond to blous( limited dut to her ?? EF), place central line and start Levophed with the rate of 5 mcg/h and titrate per MAP of 65. * Adding Vasopressor to low dose Levo has proven to be superior to maxing out on one pressor prior to adding the second one. Cardiac #1 ??? decompensated heart failue. Hx of somewhat reduced EF 30-50%: Of coronary artery disease status post CABG. Based on Ph/Ex he does not seem to be in CHF decomp and overload. FYI, at his baseline patient has significant elevated Pro- BNP levels. His current BNP of 7040 seems slightly higher than his normal, which could be due to his respiratory status (infection) and his baseline CKD. (see above; respiratory section) * 24-hour monitor technician * check [id number] * alternatives medication with cardiology * High risk of aspiration-stop atorvastatin * Switch carvedilol 3.125 to metoprolol 1.25 mg IV every 6 when necessary #2 congestive heart failure decompensation-elevated proBNP of 6190. No JVD no peripheral edema in the physical exam of the lungs chest x-ray does not show pulmonary congestion. Probably due to COPD exacerbation. Rule out acute coronary syndrome as a cause of CHF decompensation. * Admit to ICU * Restrict I&Os * Daily weights- 222 lb * Not febrile but using BiPaP which increases the insessible water loss. gentle hydration 75 ml/h w. NS * Avoids over hydrating the patient considering his reduced ejection fraction of 30% * Patient's daily dose of by mouth Lasix 20 mg and spironolactone was held by admitting team due to dehydration- agree with holding diuretics for now Hematology: Normocytic anemia with hemoglobin of 9.8 mg/dl * No fever no symptoms of infection. Check daily CBC * Anemia at his baseline. * Stop ferrous sulfate due to high risk of aspiration Metabolic: Hx of DM on insulin. * NPO for AMS * Finger stick Q6 * Insuling SS for NPO patients * increased HCO3: In the setting of obstructive sleep apnea ARF on CKD: increased Cr from 1.5( baseline) to 2.3 along w/ elevated BUN and dry mucousal membranes. * IV fluid 75 ml /h * repeat labs in the am Diet * NPO- diabetic patient * IV pantoprazole 40 mg Neurology: altered mental status: CVA Vs metabolic encephalopathy and possible altered in the setting of sepsis w/o any other evidence of organ failure or hypotension. * Urine Toxicology- pending * Head CT- negative * Nracan- no improvement in mentation * avoid narcotic and hypnotics * Get official swallow eval in the am * fall percusion * Hold citalopram Pain medication * Avoids all the sedative and hypnotic medications is altered mental status and hypercapnic respiratory failure * IV Tylenol for pain Subcutaneous heparin 5000 units Q8h Full code-w10 As Ranked By This Provider Problem List: 1. COPD 2. Benign essential hypertension 3. ACUTE RENAL FAILURE 4. S/P CABG (coronary artery bypass graft) 5. Chronic respiratory failure with hypoxia and hypercapnia 6. Chronic kidney disease 7. Chronic anemia 8. Acute hypercapnic respiratory failure 9. HFrEF (heart failure with reduced ejection fraction) 10. Acute on chronic respiratory failure with hypoxia and hypercapnia 11. T2DM (type 2 diabetes mellitus) 12. Sepsis Core Measures/Miscellaneous Acute Coronary Syndrome ACS Diagnosis: No Cerebrovascular Accident CVA/TIA Diagnosis: No Congestive Heart Failure CHF Diagnosis: Yes Date of most recent Echo: 04/08/16 Last Known EF %: 50 ARJUN/ARB for EF <40%: No Venous Thromboembolism VTE Risk Factors: Acute medical illness, Age > 40, CHF or Resp failure, Immobility, paresis, Obesity No [facility] VTE prophylaxis d/t: No contraindications No VTE Pharm Prophylaxis d/t: No contraindications VTE Diagnosis: No VTE Type: NONE VTE Confirmed by (Test): NONE Severe Sepsis Severe Sepsis Present: No BC x2: Yes Lactic Acid x2: Yes IV ABX Broad Spectrum: Yes NS/LR Started: Yes Septic Shock Septic Shock Present: No Miscellaneous Documentation Attending Case Discussed With: SANDRA BELTRE MD Primary Care Physician: ELLA GARCIA MD Patient sees these Specialists . Level of Patient Care: Critical Care (CRI) Resident Review Statement Resident Statement: examined this patient, discussed with pharmacist intern, agreed with pharmacist intern, discussed with family, reviewed EMR data (avail), discussed with nursing , discussed with case mgmt, reviewed images, amended to note SANDRA BELTRE MD 05/17/161934: Attending MD Review Statement Attending Statement Attending MD Statement: examined this patient, discuss w/resident/PA/CUT ROLL MACHINE OFFBEARER, agreed w/resident/PA/CUT ROLL MACHINE OFFBEARER, reviewed EMR data (avail) Attending Assessment/Plan: 76M PMH JUANITO on CPAP, COPD on 2L NC O2, CAD S/P CABG, TIA, CKD, PVD s/p stent placement brought in from [place] for unresponsiveness. Similar episode last month. Minimally rousable initially but BiPAP was started in ED and he perked up a bit, able to hold a basic conversation. pCO2 65 on admission improved with BiPAP. CXR shows pneumonia. Admit to ICU, critical care consult, BiPAP, Vanco, Ceftaz, cultures, nebulizers.
--- NOTE | 2016-05-17 19:38 | NUR ---
REPORT GIVEN TO OLGA LIDIA ALBARADO. [facility]RI[facility] CALLED FOR PT TRANSPORT.
--- NOTE | 2016-05-17 21:00 | NUR ---
ADMISSION NOTE- Patient arrived from ER at 2015pm on stretcher with MINT MACHINE OPERATOR. Patient transferred to ICU bed and placed on monitoring. Patient is found to be drowsy but arousable and able to follow simple commands. He is able to state his name and birthday, but is unable to remain awake enough to continue answering quesions. Resp therapist is at the bedside to place patient back onto Bipap at 30%, RR-24 and I-19, E-6. There are diminished breath sounds throughout lung field and patient is seen to be tachypnic at times, with no cough or distress noted. He is NSR with a BBB, PVC's and PAC's noted on satellite project site monitor. HR remains in 80's, and SBP 100's. He is incontinent of urine and upon turning and changing this patient, skin appears to be intact with no edema noted. There are 2 IV's, one of which patient pulls out while settling into bed. Another IV is placed and is patent. NS infusing at 125ml/hr upon arrival. Patient is oriented to room, call light and staff. No distress noted, will cont to closely monitor.
[2016-05-18 05:13] LABS: ABSOLUTE BASOPHIL COUNT 0 /CUMM (0.0-0.2); ABSOLUTE EOSINOPHIL COUNT 0.1 /CUMM (0.0-0.7); ABSOLUTE GRANULOCYTE CT 9.1 /CUMM (1.4-6.5); ABSOLUTE LYMPH COUNT 1.5 /CUMM (1.2-3.4); ABSOLUTE MONOCYTE COUNT 1.2 /CUMM (0.10-0.60); BASOPHIL % 0.2 % (0.0-2.0); EOSINOPHIL % 0.9 % (0-5); GRANULOCYTE % 76.3 % (42.2-75.2); HEMATOCRIT 30.3 % (42-52); MEAN CORPUSCULAR HGB 28.4 PG (27.0-31.0); MEAN CORPUSCULAR HGB CONC 31.9 G/DL (33.0-37.0); MEAN CORPUSCULAR VOLUME 89.2 FL (80.0-94.0); MEAN PLATELET VOLUME 9.5 FL (7.4-10.4); PLATELET COUNT 208 /CUMM (130-400); RBC DISTRIBUTION WIDTH 17.3 % (11.5-14.5)
--- NOTE | 2016-05-18 07:21 | Cons- CRCU ---
General Information and HPI Consulting Request Date of Consult: 05/18/16 Allergies/Medications Allergies: Coded Allergies: NO KNOWN ALLERGIES (04/17/15) Home Med List: Budesonide 0.5 MG/2 ML AMPUL.NEB 1 Vial INH/STEPHANE BID BREATHING PROBLEMS ( Reported) Escitalopram Oxalate 10 MG TABLET 1 TAB PO DAILY MENTAL HEALTH (Reported) Fluticasone/Salmeterol (Advair 250-50 Diskus) 250 MCG-50 MCG/DOSE BLST.W.DEV 1 PUF INH BID COPD (Reported) Furosemide 20 MG TABLET 1 TAB PO Q48 WATER PILL (Reported) Glipizide 5 MG TABLET 1 TAB PO DAILY DM (Reported) Insulin Detemir (Levemir) 100 UNIT/ML VIAL 10 UNITS SC BID diabetes please continue levemir for the next 6 days and stop on april 22, 2016 Insulin Lispro (Humalog) 100 UNIT/ML VIAL DM (Reported) 151-200 2 U 201-250 4 U 251-300 6 U 301-350 8 U 351-400 10 U >400 or < 60 call Ipratropium/Albuterol Sulfate (Iprat-Albut 0.5-3(2.5) MG/3 Ml) 3 ML AMPUL.NEB 1 AMP INH 4 TIMES/DAY COPD (Reported) Magnesium Oxide (Magnesium) 400 MG CAPSULE 1 CAP PO DAILY Low Mag Pantoprazole Sodium (Protonix) 40 MG TABLET.DR 1 TAB PO DAILY DUODENAL ULCER Polyethylene Glycol 3350 (Miralax) 17 GRAM POWD.PACK 1 PAC PO DAILY CONSTIPATION dissolve in water Rosuvastatin Calcium (Crestor) 10 MG TABLET 1 TAB PO QPM CHOLESTEROL ( Reported) Sennosides (Senna) 8.6 MG TABLET 1 TAB PO 1600 CONSTIPATION (Reported) Tiotropium [place] (Spiriva) 18 MCG CAP.W.DEV 1 CAP INH DAILY BREATHING PROBLEMS (Reported) Past History Travel History Traveled to [place] past 21 day No Medical History Neurological: TIA, essential tremor EENT: NONE Cardiovascular: CAD, hypertension, hyperlipidemia, myocardial infarction, systolic CHF Respiratory: COPD, obstructive sleep apnea, pneumonia Gastrointestinal: NONE Hepatic: NONE Renal: chronic kidney disease Musculoskeletal: NONE Psychiatric: NONE Endocrine: diabetes, obesity Blood Disorders: anemia Cancer(s): NONE STONE DRESSER/Reproductive: NONE Surgical History Surgical History: CABG (x - 2010 @ [facility]), back surgery surgeries in bilateral shoulders right knee surgery Family History Relations & Conditions If Any: FATHER, ; Cause: MVA (motor vehicle accident). FH: diabetes mellitus MOTHER FH: breast cancer SISTER, ; Cause: Motor vehicle accident. BROTHER, ; Cause: Cancer. FH: cancer Psychosocial History Where Do You Live? [facility] Who Do You Live With? child Services at Home: [facility] Primary Language: Vietnamese Smoking Status: Former Smoker ETOH Use: denies use Living Will? yes Power of Tooling Mechanic/HCP? yes Name of POA/HCP: Pt's son Alejo David [phone] Functional Ability ADLs Independent: eating. Unknown: dressing, toileting, bathing. Ambulation: non-ambulatory IADLs Independent: telephone. Unknown: shopping, housework, finances, food prep, transportation, medication admin. Assessment/Plan Consult Acknowledgment - Thank you for your consult request.
--- NOTE | 2016-05-18 07:24 | Cons- CRCU ---
KODYDayanaHARISHNATACHA 05/18/16 0724: General Information and HPI Consulting Request Date of Consult: 05/18/16 Requested By: Dr. Love Reason for Consult: Altered mental staus Acute on chronic respiratory Failure. Sepsis with SOFA of 4 to 5 2/2 to ? pnuemonia ? Postive UA Source of Information: patient, old records, W10 Exam Limitations: poor historian History of Present Illness: 76 yo M, resident of [facility], was sent to ED for lethargy and confusion. He has PMH significant for T2DM, CAD s/p CABG, COPD on 2L, systolic CHF, CVA, JUANITO on CPAP, CKD stage 3B, HTN, multiple hospital and ICU admissions for CHF and COPD execerabtion (June 2015, Feb and Mar 2016 for with similar presentation). According to W10 reporta dnreport from senior care, patient was found to be more drowsy and lethargic, however he did not have any feverm NVD, sick contact, increased sputum production. He was rushed into ED by ambulance. His initial ABG was 7.38/65/94/37, which is slightly worse than his baseline. Knowing his prior Hx, put him at risk for impending respiratory failure, thorugh, he was started on BiPap at 3 pm for two-hour follow up ABG showed 7.42/55/73/35. However, patient remained drowsy and lethargic but arousible (w/o obvious change /improvement in his mentation). Patient underwent extenssive work up in the ED. In his CBC it was found that he has WBC count of 11.6 and nrmal PLt count. His BEP showed Cr lvl of 2.1 from his baseline 1.5. Her troponin was negative, LA 1.4, AG 9, ALT 458. ProBNP is pending. CXR showed Left basilar consolidation and small left effusion. Due to his clinical condition there was a question regarding CVA. CT scan was done which did not show any new pathologic changes. Allergies/Medications Allergies: Coded Allergies: NO KNOWN ALLERGIES (04/17/15) Home Med List: Amoxicillin/Potassium Clav (Augmentin 875-125 Tablet) 875 MG-125 MG TABLET 1 TAB PO BID LUNG INFECTION Budesonide 0.5 MG/2 ML AMPUL.NEB 1 Vial INH/STEPHANE BID BREATHING PROBLEMS ( Reported) Cholecalciferol (Vitamin D3) 1,000 UNIT TABLET 1,000 IU PO DAILY low vit d Escitalopram Oxalate 10 MG TABLET 1 TAB PO DAILY MENTAL HEALTH (Reported) Fluticasone/Salmeterol (Advair 250-50 Diskus) 250 MCG-50 MCG/DOSE BLST.W.DEV 1 PUF INH BID COPD (Reported) Furosemide 20 MG TABLET 1 TAB PO Q48 WATER PILL (Reported) Glipizide 5 MG TABLET 1 TAB PO DAILY DM (Reported) Insulin Detemir (Levemir) 100 UNIT/ML VIAL 10 UNITS SC BID diabetes please continue levemir for the next 6 days and stop on april 22, 2016 Insulin Lispro (Humalog) 100 UNIT/ML VIAL DM (Reported) 151-200 2 U 201-250 4 U 251-300 6 U 301-350 8 U 351-400 10 U >400 or < 60 call Ipratropium/Albuterol Sulfate (Iprat-Albut 0.5-3(2.5) MG/3 Ml) 3 ML AMPUL.NEB 1 AMP INH 4 TIMES/DAY COPD (Reported) Magnesium Oxide (Magnesium) 400 MG CAPSULE 1 CAP PO DAILY Low Mag Pantoprazole Sodium (Protonix) 40 MG TABLET.DR 1 TAB PO DAILY DUODENAL ULCER Polyethylene Glycol 3350 (Miralax) 17 GRAM POWD.PACK 1 PAC PO DAILY CONSTIPATION dissolve in water Prednisone 20 MG TABLET 2 TAB PO DAILY COPD Please take until 05/21/16 Rosuvastatin Calcium (Crestor) 10 MG TABLET 1 TAB PO QPM CHOLESTEROL ( Reported) Sennosides (Senna) 8.6 MG TABLET 1 TAB PO 1600 CONSTIPATION (Reported) Tiotropium [place] (Spiriva) 18 MCG CAP.W.DEV 1 CAP INH DAILY BREATHING PROBLEMS (Reported) Current Medications: Current Medications Sig/Amadeo Start time Last Medication Dose Route Stop Time Status Admin Acetaminophen 1,000 MG Q6P PRN 05/17 2115 AC N/A 1 UNIT IV Albuterol Sulfate 3 ML EVERY 4 HRS/AWAKE 05/18 1200 UNV INH Albuterol Sulfate 3 ML ONCE ONE 05/17 1445 DC 05/17 INH 05/17 1446 1435 Ceftazidime 2,000 MG Q12H 05/18 0300 CAN IV Ceftazidime 2,000 MG Q12H 05/18 0300 AC 05/18 Dextrose/Water 50 ML IV 0233 Ceftazidime 2,000 MG IQ8 05/18 0000 CAN Dextrose/Water 50 ML IV Ceftazidime 2,000 MG Q12 05/17 2200 CAN Dextrose/Water 50 ML IV Ceftazidime 0 .STK-MED ONE 05/17 1505 DC .ROUTE Ceftazidime 1,000 MG ONCE ONE 05/17 1500 DC 05/17 IV 05/17 1501 1513 Furosemide 20 MG Q48 05/19 1000 CAN PO Heparin Sodium 5,000 UNIT Q8 05/17 2200 AC 05/18 (Porcine) SC 0623 Insulin Human Regular 0 Q6 05/17 2359 AC 05/18 SC 0623 Ipratropium [place] 2.5 ML EVERY 4 HRS/AWAKE 05/18 1200 UNV INH Ipratropium [place] 2.5 ML ONCE ONE 05/17 1445 DC 05/17 INH 05/17 1446 1435 Naloxone HCl 0 .STK-MED ONE 05/17 1906 DC .ROUTE Naloxone HCl 0.4 MG ONCE ONE 05/17 1830 DC 05/17 IV 05/17 1831 1910 Pantoprazole Sodium 40 MG DAILY 05/17 2109 AC 05/17 IV 2314 Sodium Chloride 1,000 ML Q13H 05/17 2200 AC 05/18 IV 0623 Sodium Chloride 1,000 ML ONCE ONE 05/17 2115 AC IV 05/18 1034 Sodium Chloride 1,000 ML ONCE ONE 05/17 1545 DC 05/17 IV 05/17 2344 1556 Vancomycin HCl 1,500 MG 1600 05/18 1600 AC Sodium Chloride 500 ML IV Vancomycin HCl 1,000 MG DAILY 05/18 1000 CAN Sodium Chloride 250 ML IV Vancomycin HCl 0 .STK-MED ONE 05/17 1505 DC .ROUTE Vancomycin HCl 1,000 MG ONCE ONE 05/17 1500 DC 05/17 Sodium Chloride 250 ML IV 05/17 1559 1508 Review of Systems Review of Systems Constitutional: Reports: malaise, weakness. Denies: chills, diaphoresis, fever, unexplained weight loss. Cardiovascular: Reports: see HPI. Respiratory: Reports: short of breath. GI: Reports: see HPI. Genitourinary: Reports: see HPI. Musculoskeletal: Reports: no symptoms. All Other Systems: Reviewed and Negative Comments Patient was very lethagic and drowsy on presentation, today morning, in deep sleep ,will recheck a little latter today Past History Travel History Traveled to [place] past 21 day No Medical History Neurological: TIA, essential tremor EENT: NONE Cardiovascular: CAD, hypertension, hyperlipidemia, myocardial infarction, systolic CHF Respiratory: COPD, obstructive sleep apnea, pneumonia Gastrointestinal: NONE Hepatic: NONE Renal: chronic kidney disease Musculoskeletal: NONE Psychiatric: NONE Endocrine: diabetes, obesity Blood Disorders: anemia Cancer(s): NONE 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 FH: diabetes mellitus MOTHER FH: breast cancer SISTER, ; Cause: Motor vehicle accident. BROTHER, ; Cause: Cancer. FH: cancer Psychosocial History Where Do You Live? [facility] Who Do You Live With? child Services at Home: Oxygen Primary Language: Grenadian Smoking Status: Former Smoker ETOH Use: denies use Living Will? yes Power of Morale Officer/HCP? yes Name of POA/HCP: Pt's son Alejo David [phone] Functional Ability ADLs Independent: eating. Unknown: dressing, toileting, bathing. Ambulation: non-ambulatory IADLs Independent: telephone. Unknown: shopping, housework, finances, food prep, transportation, medication admin. ECHO Results (as available) Date of last Echo 04/11/16 EF% 50 Exam & Diagnostic Data Last 24 Hrs of Vital Signs/I&O Vital Signs Date Time Temp Pulse Resp B/P Pulse O2 O2 Flow FiO2 Ox Delivery Rate 05/18 0639 83 94 05/18 0400 98 BIPAP 30% 05/18 0326 87 96 05/18 0121 84 96 05/18 0000 98 BIPAP 30% 05/17 2220 86 97 05/17 2100 82 96 05/17 2030 98 BIPAP 30% 05/17 1930 95 05/17 1915 98.0 85 24 120/60 98 BIPAP 30% 05/17 1815 97.0 85 24 123/57 95 BIPAP 30% 05/17 1735 95 05/17 1733 95 05/17 1630 96.3 88 24 117/57 94 BIPAP 05/17 1545 94 Nasal 4.0L Cannula 05/17 1520 93 97 05/17 1428 95.7 87 40 144/55 95 Nasal 4.0L Cannula Intake & Output 05/18 1600 05/18 0800 05/18 0000 Intake Total 554 186 Output Total 300 75 Balance 254 111 Intake, IV 554 186 Output, Urine 300 75 Patient 99.819 kg 100.783 kg Weight Physical Exam General Appearance: patient sleeping today morning, will check latter, breif exam done while asleep. Head: atraumatic, normal appearance Neck: normal inspection, supple Respiratory: on bipap Cardiovascular: regular rate/rhythm Peripheral Pulses: 2+ radial (R), 2+ radial (L) Gastrointestinal: normal bowel sounds, soft, non-tender Back: normal inspection Extremities: no edema Last 48 Hrs of Labs/[place]: Laboratory Tests 05/18/16 0430: Anion Gap 9, Estimated GFR 33 L, Glucose 113 H, Calcium 8.4, Phosphorus 3.6, Magnesium 2.3, Total Bilirubin 0.8, AST 24, ALT 362 H, Albumin 2.8 L, CBC w Diff NO MAN DIFF REQ, RBC 3.40 L, MCV 89.2, MCH 28.4, RDW 17.3 H, MPV 9.5, Gran % 76.3 H, Lymphocytes % 12.3 L, Monocytes % 10.3 H, Eosinophils % 0.9, Basophils % 0.2, Absolute Granulocytes 9.1 H, Absolute Lymphocytes 1.5, Absolute Monocytes 1.2 H, Absolute Eosinophils 0.1, Absolute Basophils 0, PUBS MCHC 31.9 L 05/17/16 2130: Urine Color YEL, Urine Clarity CLEAR, Urine pH 7.0, Ur Specific [place] 1.010, Urine Protein 30 H, Urine Ketones NEG, Urine Nitrite NEG, Urine Bilirubin NEG, Urine Urobilinogen 0.2, Ur Leukocyte Esterase SMALL H, Ur Microscopic SEDIMENT EXAMINED, Urine WBC 25-50 H, Urine Bacteria RARE H, Urine Hemoglobin NEG, Urine Glucose NEG 05/17/16 1745: Lactic Acid Cancelled 05/17/16 1725: pH 7.43, pCO2 55 H, pO2 73 L, HCO3 35 H, ABG O2 Sat (Measured) 95.0 L, P-50 (Temp Corrected) Y, Carboxyhemoglobin 0.4 L, O2 Concentration % 30, Temperature 96.3 L, Respiration Rate 24, O2 Delivery Method BIPAP, Vent Mode ST, Expiratory Pressure 6, Inspiratory Pressure 20, Phlebotomy Draw Site LEFT RADIAL 05/17/16 1520: pH 7.38, pCO2 65 *H, pO2 94, HCO3 37 H, ABG O2 Sat (Measured) 97.0, Carboxyhemoglobin 0.2 L, O2 Concentration % 3.5L, O2 Delivery Method NC, Phlebotomy Draw Site LEFT RADIAL 05/17/16 1454: Lactic Acid 1.4 05/17/16 1454: Anion Gap 9, Estimated GFR 31 L, BUN/Creatinine Ratio 13.8, Glucose 185 H, Calcium 8.4, Total Bilirubin 0.6, AST 34, ALT 458 H, Alkaline Phosphatase 93, Troponin I 0.06, C-Reactive Prot, Quant > 9.0 H, Pdi-B-Elmkzurzbbd Pept 7040 H , Total Protein 5.7 L, Albumin 3.0 L, Globulin 2.7, Albumin/Globulin Ratio 1.1 , Vitamin B12 983 H, 25-OH Vitamin D Total 13.2 L, Folate 19.3, TSH 1.410, Free T4 1.38, PT 12.3, INR 1.17, APTT 26, CBC w Diff NO MAN DIFF REQ, RBC 3.48 L, MCV 88.7, MCH 28.2, RDW 16.8 H, MPV 9.1, Gran % 79.9 H, Lymphocytes % 10.4 L, Monocytes % 9.0, Eosinophils % 0.7, Basophils % 0 L, Absolute Granulocytes 9.2 H, Absolute Lymphocytes 1.2, Absolute Monocytes 1.0 H, Absolute Eosinophils 0.1, Absolute Basophils 0, PUBS MCHC 31.8 L Diagnostic Data EKG Results Normal sinus rhythm, rate of 88, left axis deviation, VT of 184, QTC of 436, no acute ST-T wave changes -Admission EKG done on 05/17/2016 CXR Results SERVICE DATE: 05/17/16 EXAM TYPE: RAD - XRY-PORTABLE CHEST XRAY FINDINGS: Status post median sternotomy and CABG. Patient is slightly rotated to the left. Stable cardiomegaly. Interval increase in the opacity noted in the left lower lung compatible with small left effusion with associated left basilar consolidation. Findings may represent pneumonia. Mild degenerative changes of the thoracic spine. IMPRESSION: Left basilar consolidation and small left effusion. Findings may represent pneumonia in the appropriate clinical setting. Repeat chest x-ray after treatment is recommended. SERVICE DATE: 05/18/16 EXAM TYPE: RAD - XRY-PORTABLE CHEST XRAY IMPRESSION: No significant change from prior. Persistent small left pleural effusion with airspace opacity which could represent atelectasis or pneumonia. Other Results SERVICE DATE: 05/17/16 EXAM TYPE: CAT - CT HEAD WO IV CONTRAST IMPRESSION: 1. There are no acute bleeds or infarcts. 2. There are changes consistent with progressive moderate diffuse volume loss, and there is now relatively extensive microvascular ischemic change in the periventricular and subcortical white matter. 3. The study redemonstrates bilateral thalamic and left cerebellar chronic infarcts. Assessment/Plan Impression/Plan: In summary this is a 76-year-old obese man with past medical history of coronary artery disease status post CABG, congestive heart failure with reduced EF to 30% in 2016, which improved to 50% on echo in 2017, COPD on 2 L of home oxygen, obstructive sleep apnea on CPAP, CKD stage IIIB, previous multiple admission for CHF and COPD along with ICU admission came in today from [facility] with worsening lethargy and drowsiness which seems to be likely secondary to a combination of acute on chronic hyper [place] respiratory failure along with some element of sepsis secondary to suspected pneumonia with left basilar consolidation on chest x-ray. Vitals on presentation patient was afebrile, pulse of 85, respirations 24, blood pressure of 123/57, he was 95% saturating on 4 L of nasal cannula and was put on BiPAP with 30% rate initially, currently patient continues to be on BiPAP Relevant labs on presentation White Count of 11.6, no bands. H/H of 9.8/30.9 (baseline H/H - 9.7/30), MCV- 88.7. Platelet of 214. Electrolytes within normal limits, BUN and creatinine 29/2.1 ( 1.4/26) glucose 185, liver function tests negative, first set of troponin negative. UA was negative for nitrite, positive for leukocyte esterase small amount, WBCs of 25-50 red Initial lactic acid of 1.4. Chest x-ray showed left basilar consolidation and small left pleural effusion. Last echocardiogram in March 2016 with ejection fraction 50%, right ventricular pressure of 46 and mild TR. probnp - 7040 ( baseline has been higher 2000 to 3000) Problem List along with assessment and plan. Problem #1 acute on chronic hypercarbic respiratory failure most likely secondary to COPD exacerbation along with baseline pulmonary hyper tension. Problem #2 altered mental status ? 2/2 hypercarbia versus 2/2 to infection secondary to pneumonia versus UA positive. Problem #3 RICHARD on CKD Problem #4 obstructive sleep apnea on CPAP Problem #5 hospital-acquired pneumonia with left basilar consolidation (coming from rehabilitation center) Problem # 6 Decompenstated heart failure with mildly elevated pro-bnp from baseline. Problem # 7 Normocytic anemia Problem # 8 DM Assesment/plan Respiratory * Continue the patient on BiPAP. * Continue maintain oxygen saturation greater than 92%. * Continue to keep the patient nothing by mouth. * Duo nebulization every 4 hourly when necessary. * continue to follow sputum cultures. * Continue treatment with vancomycin and ceftazidime for suspected hospital- acquired pneumonia. * Repeat chest x-ray today consistent with yesterday's chest x-ray and consistent with pneumonia versus atelectasis. * Keep the bed elevated at 45. * Continue to maintain aspiration precautions. * Urine Legionella and strep pneumonia antigen negative. * Flu negative. * Continue to monitorvitals q2 * Continue to watch pressures closely. Infectious disease. * Continue to follow blood cultures and respiratory sputum cultures. * Continue to treat for hospital-acquired pneumonia with vancomycin and ceftazidime. * Continue to monitor blood pressure closely. * Continue IV hydration for sepsis. * Continue monitor intakes and outputs. * UA positive nitrites, WBC 20/25, negative for leukocyte esterase, but this pain is with the patient once a week if he has any urinary tract symptoms. Cardiology. * Last echocardiogram in March 2016 with EF of 50% and mild elevated right ventricular pressure. * Continue metoprolol. * Continue to hold all antihypertensive medication. * Restart as tolerated. * Be careful with IV hydration, as the patient does have a history of decompensated heart failure. * ProBNP was elevated from baseline however no evidence of congestion therefore no diuretics indicated at this time. * Continue telemetry monitoring. * Will start by mouth medications once patient passes swallow eval of. He monitors intake and output * Continue monitor daily weights. * Continue aspiration precautions. Hematology. * Normocytic anemia with hemoglobin 9.8. * Anemia at his baseline. * Continue to monitor H&H. * We'll hold ferrous sulfate for now as the patient is not tolerating any by mouth medications. * Restart as needed. Metabolic. * Continue to monitor electrolytes. * BUN and creatinine slightly elevated from baseline. * Continue IV hydration. * Continue to monitor kidney function tests. * Continue to monitor electrolytes and keep magnesium above 2 and potassium above 4. * Continue nothing by mouth sliding scale for insulin. * Continue monitoring fingerstick every 6 and regular insulin for nothing by mouth patient accordingly. * Once patient passes swallow eval of, can change the insulin to NovoLog. Alimentary * Continue nothing by mouth. * Continue aspiration precautions. * Swallow eval once patient more awake. Neurological. * Altered mental status most likely secondary to hypercarbia versus metabolic encephalopathy versus secondary to sepsis. * Urine toxicology negative. * Head CT negative. * Narcan did not show any improvement on admission. * Will avoid narcotics and hypnotics. * Swallow eval in the a.m. * Continue aspiration precautions. * Continue fall precautions. * Hold citalopram. DVT px heparin PP wit iv tylenol, avoid narcotics FC Consult Acknowledgment - Thank you for your consult request. NIGEL GARCIA MD 05/18/16 1051: Assessment/Plan Other Findings/Comments: Nigel Anne M.D. have examined this patient, reviewed available EMR data, personally reviewed images, discussed with resident/PA/MANAGER CLINICAL INFORMATICS, discussed management plan with housestaff and nursing staff, discussed managment plan all of healthcare providers, discussed management plan with patient and/or family, agreed with resident/PA/MANAGER CLINICAL INFORMATICS. The past history and parts of the chart have been autopopulated. Impression 76 year old man * hypercarbic and hypoxemic respiratory failure, possible bronchitis vs atelectasis vs pna * possible uti * systolic chf seems stable at this point Plan - trc/nebs - begin solumedrol 40mg iv q12h, will taper during hospital course - repeat cxr 05/19 - dc ceftazadime and vancomycin - monitor on ceftriaxone - f/u sputum cx - diuresis - f/u ins/outs, daily weights - nocturnal bipap TTS 50 min Consult Acknowledgment - Thank you for your consult request.
[2016-05-18 08:00] VITALS: BP 107/54
--- NOTE | 2016-05-18 08:00 | RADIOLOGY REPORT ---
EXAMINATION: XR PORTABLE CHEST CLINICAL INFORMATION: Respiratory failure COMPARISON: 05/17/2016 TECHNIQUE: Portable AP view of the chest was obtained. FINDINGS: Median sternotomy wires appear intact. Cardiac leads overlie the chest. The lungs are well expanded. Persistent left basilar airspace opacity. Small left pleural effusion. The right lung is clear. No pneumothorax. The cardiomediastinal silhouette is unchanged, with a calcified aorta. IMPRESSION: No significant change from prior. Persistent small left pleural effusion with airspace opacity which could represent atelectasis or pneumonia.
[2016-05-18 16:15] VITALS: BP 114/58
--- NOTE | 2016-05-18 19:57 | NUR ---
PT A GEN MED HOLD. PT DROWSY, EASILY AROUSABLE TO VERBAL STIMULI. ORIENTED TO SELF AND PLACE, NOT TIME. FOLLOWS COMMANDS AND COOPERATIVE WITH CARE. BREATH SOUNDS CLEAR WITH DIMINISHED BREATH SOUNDS AT BASES BILATERALLY. NO COUGH, SOB OR RESP DISTRESS NOTED AT PRESENT. ABD SOFT, NONTENDER, NONDISTENDED, POSITIVE BOWEL SOUNDS. SALAZAR IN PLACE-DRAINING YELLOW URINE WITH SEDIMENTS. SKIN INTACT
[2016-05-18 23:00] VITALS: BP 120/58
--- NOTE | 2016-05-19 06:55 | PN- Housestaff ---
Subjective Follow-up For: acute on chronic hypercarbic respiratory failure copd exacerbation richard on ckd low vit d Tele-Events Since Last Visit: Not on telemetry monitoring. GM hold in ICU Subjective: Pt was on bipap when seen this morning, and appears to be mentating at his baseline. Would like something to drink. Told him that ST will re-evaluate his swallowing today. His kidney functions have improved to 29/1.7, still a little elevated from baseline, but would consider restarting his home lasix. His only complain is shortness of breath. Denies cough or any pain at this time. WBC up from 12 to 15.1 , could be due to steroids . no bands. Review of Systems Constitutional: Reports: see HPI. Objective Last 24 Hrs of Vital Signs/I&O Vital Signs Date Time Temp Pulse Resp B/P Pulse O2 O2 Flow FiO2 Ox Delivery Rate 05/19 0901 93 Nasal 3.0L Cannula 05/19 0901 93 05/19 0023 84 94 05/19 0000 93 BIPAP 30% 05/18 2300 97.8 84 28 120/58 93 BIPAP 30% 05/18 2220 80 96 05/18 1706 95 Nasal 3.0L Cannula 05/18 1615 98.2 80 24 114/58 94 Nasal 3.0L Cannula 05/18 1600 97 Nasal 3.0L Cannula 05/18 1156 94 Nasal 3.0L Cannula Intake & Output 05/19 1600 05/19 0800 05/19 0000 Intake Total 120 420 Output Total 200 200 Balance -80 220 Intake, IV 300 Intake, Oral 120 120 Number 0 0 Bowel Movements Output, Urine 200 200 Physical Exam General Appearance: Alert, Oriented X3, Cooperative, No Acute Distress Cardiovascular: Regular Rate, Normal S1, Normal S2 Lungs: Clear to Auscultation Abdomen: Normal Bowel Sounds, Soft, No Tenderness Extremities: +edema Current Medications: Current Medications Sig/Amadeo Start time Last Medication Dose Route Stop Time Status Admin Acetaminophen 1,000 MG Q6P PRN 05/17 211 AC N/A 1 UNIT IV Albuterol Sulfate 3 ML EVERY 4 HRS/AWAKE 05/18 1200 AC 05/19 INH 0859 Atorvastatin Calcium 40 MG 1700 05/18 1700 AC 05/18 PO 1541 Ceftazidime 2,000 MG Q12H 05/18 0300 DC 05/18 Dextrose/Water 50 ML IV 0233 Ceftriaxone Sodium 1,000 MG DAILY 05/18 1002 AC 05/18 IV 1130 Cholecalciferol 1,000 IU DAILY 05/18 1258 AC 05/18 PO 1540 Escitalopram Oxalate 10 MG DAILY 05/18 1244 AC 05/18 PO 1540 Heparin Sodium 5,000 UNIT Q8 05/17 2200 AC 05/19 (Porcine) SC 0616 Insulin Aspart 0 AT BEDTIME 05/18 2200 AC 05/18 SC 2151 Insulin Aspart 0 TIDAC 05/18 1700 AC 05/18 SC 1657 Insulin Human Regular 0 Q6 05/17 2359 DC 05/18 SC 1136 Ipratropium Deep Water 2.5 ML EVERY 4 HRS/AWAKE 05/18 1200 AC 05/19 INH 0859 Methylprednisolone 40 MG Q12 05/18 1130 AC 05/18 IV 2152 Omeprazole 40 MG DAILY AC 05/19 0700 AC 05/19 PO 0615 Pantoprazole Sodium 40 MG DAILY 05/17 2109 DC 05/18 IV 0902 Polyethylene Glycol 17 GM DAILY 05/18 1247 AC 05/18 PO 1541 Senna 187 MG AT BEDTIME 05/18 2200 AC 05/18 PO 2152 Sodium Chloride 1,000 ML Q13H 05/17 2200 DC 05/18 IV 05/18 2359 0623 Sodium Chloride 1,000 ML ONCE ONE 05/17 2115 DC IV 05/18 1034 Vancomycin HCl 1,500 MG 1600 05/18 1600 CAN Sodium Chloride 500 ML IV Last 24 Hrs of Lab/Sumanth Results Last 24 Hrs of Labs/Mics: Laboratory Tests 05/19/16 0700: CBC w Diff MAN DIFF ORDERED, RBC 3.51 L, MCV 89.6, MCH 28.1, RDW 17.7 H, MPV 9.6, Gran % 94.1 H, Lymphocytes % 3.8 L, Monocytes % 2.1, Eosinophils % 0, Basophils % 0 L, Absolute Granulocytes 14.2 H, Absolute Lymphocytes 0.6 L, Absolute Monocytes 0.3, Absolute Eosinophils 0, Absolute Basophils 0, Platelet Estimate VERIFIED BY SMEAR, Polychromasia 1+, Poikilocytosis 1+, Anisocytosis 1+ , Ovalocytes 1+, PUBS MCHC 31.4 L 05/19/16 0556: Anion Gap 6, Estimated GFR 39 L, BUN/Creatinine Ratio 17.1, Magnesium 2.4 H Assessment/Plan Assessment: 76-year-old obese man with past medical history of coronary artery disease status post CABG, congestive heart failure with reduced EF to 30% in 2016, which improved to 50% on echo in 2017, COPD on 2 L of home oxygen, obstructive sleep apnea on CPAP, CKD stage IIIB, previous multiple admission for CHF and COPD along with ICU admission came from [place] with worsening lethargy and drowsiness which seems to be likely secondary to a combination of acute on chronic hypercarbic respiratory failure along with some element of sepsis secondary to suspected pneumonia with left basilar consolidation on chest x-ray. Pt's mental status has now improved, and he is stable for GM. Problem list: # Acute on chronic hypercarbic respiratory failure most likely secondary to COPD exacerbation along with baseline pulmonary hyper tension. Possible Pneumonia. # Altered mental status ? 2/2 hypercarbia versus 2/2 to infection secondary to pneumonia versus UA positive. (resolved) # RICHARD on CKD # Low Vit D # Acute on chronic hypercarbic respiratory failure most likely secondary to COPD exacerbation along with baseline pulmonary hyper tension. Possible Pneumonia. - Given 1Xvanc and ceftaz in ED * Continue solumedrol 40 q 12 * Continue ceftriaxone * Continue bipap * F/U [facility], BCX2, UC * Aspiration precautions # Altered mental status ? 2/2 hypercarbia versus 2/2 to infection secondary to pneumonia versus UA positive. (resolved) - UA positive nitrites, WBC 20/25, negative for leukocyte esterase * ST following for swallow evaluation - now on CC3 ground and nectar, most likely can be regular and thin today # RICHARD on CKD * Improving, consider restarting home lasix # Low Vit D * Vit D supplement started # DM * Accucheck, novolog ss # Continue home meds PPI Senna Miralax Lexapro Diet: CC3 (chopped and nectar), can probably advance to regular and thin after repeat swallow eval DVT ppx: heparin PP wit iv tylenol, avoid narcotics FC Problem List: 1. Chronic respiratory failure with hypoxia and hypercapnia Pain Ratin Pain Location: none Pain Goal: Remain pain free Pain Plan: mild pp Tomorrow's Labs & Rationales: bep and mag for richard and electrolyte repletion cbc for leukocytosis DVT/Prophylaxis: mechanical, pharmacological
--- NOTE | 2016-05-19 07:45 | NUR ---
PT SLEPT MOST OF NIGHT. ON BIPAP SINCE 2199. VS STABLE. NO CHANGE IN PT ASSESSMENTS THOUGHOUT SHIFT.
[2016-05-19 07:49] LABS: ABSOLUTE BASOPHIL COUNT 0 /CUMM (0.0-0.2); ABSOLUTE EOSINOPHIL COUNT 0 /CUMM (0.0-0.7); ABSOLUTE GRANULOCYTE CT 14.2 /CUMM (1.4-6.5); ABSOLUTE LYMPH COUNT 0.6 /CUMM (1.2-3.4); ABSOLUTE MONOCYTE COUNT 0.3 /CUMM (0.10-0.60); BASOPHIL % 0 % (0.0-2.0); EOSINOPHIL % 0 % (0-5); GRANULOCYTE % 94.1 % (42.2-75.2); HEMATOCRIT 31.5 % (42-52); MEAN CORPUSCULAR HGB 28.1 PG (27.0-31.0); MEAN CORPUSCULAR HGB CONC 31.4 G/DL (33.0-37.0); MEAN CORPUSCULAR VOLUME 89.6 FL (80.0-94.0); MEAN PLATELET VOLUME 9.6 FL (7.4-10.4); PLATELET COUNT 265 /CUMM (130-400); RBC DISTRIBUTION WIDTH 17.7 % (11.5-14.5); RED BLOOD CELL CT 3.51 /CUMM (4.70-6.10); WHITE BLOOD CELL COUNT 15.1 /CUMM (4.8-10.8)
[2016-05-19 08:00] VITALS: BP 138/60
--- NOTE | 2016-05-19 12:03 | PN- CRCU ---
Subjective HPI/Critical Care Issues: pt seen and examined comfortable on nasal cannula no new events 3LNC afebrile dyspnea with exertion pursed lipped breathing no nvdc Objective Current Medications: Current Medications Sig/Amadeo Start time Last Medication Dose Route Stop Time Status Admin Acetaminophen 1,000 MG Q6P PRN 05/17 2115 AC N/A 1 UNIT IV Albuterol Sulfate 3 ML EVERY 4 HRS/AWAKE 05/18 1200 AC 05/19 INH 0859 Atorvastatin Calcium 40 MG 1700 05/18 1700 AC 05/18 PO 1541 Ceftriaxone Sodium 1,000 MG DAILY 05/18 1002 AC 05/19 IV 1015 Cholecalciferol 1,000 IU DAILY 05/18 1258 AC 05/19 PO 1015 Escitalopram Oxalate 10 MG DAILY 05/18 1244 AC 05/19 PO 1015 Heparin Sodium 5,000 UNIT Q8 05/17 2200 AC 05/19 (Porcine) SC 0616 Insulin Aspart 0 AT BEDTIME 05/18 2200 AC 05/18 SC 2151 Insulin Aspart 0 TIDAC 05/18 1700 AC 05/19 SC 1152 Insulin Human Regular 0 Q6 05/17 2359 DC 05/18 SC 1136 Ipratropium [place] 2.5 ML EVERY 4 HRS/AWAKE 05/18 1200 AC 05/19 INH 0859 Methylprednisolone 40 MG Q12 05/18 1130 DC 05/19 IV 1015 Omeprazole 40 MG DAILY AC 05/19 0700 AC 05/19 PO 0615 Pantoprazole Sodium 40 MG DAILY 05/17 2109 DC 05/18 IV 0902 Polyethylene Glycol 17 GM DAILY 05/18 1247 AC 05/18 PO 1541 Prednisone 40 MG DAILY 05/20 1000 AC PO 05/22 1001 Senna 187 MG AT BEDTIME 05/18 2200 AC 05/18 PO 2152 Sodium Chloride 1,000 ML Q13H 05/17 2200 DC 05/18 IV 05/18 2359 0623 Vital Signs & I&O Last 24 Hrs of Vitals and I&O: Vital Signs Date Time Temp Pulse Resp B/P Pulse O2 O2 Flow FiO2 Ox Delivery Rate 05/19 0901 93 Nasal 3.0L Cannula 05/19 0901 93 05/19 0800 Nasal 3.0L Cannula 05/19 0800 96.7 77 20 138/60 94 Nasal 3.0L Cannula 05/19 0023 84 94 05/19 0000 93 BIPAP 30% 05/18 2300 97.8 84 28 120/58 93 BIPAP 30% 05/18 2220 80 96 05/18 1706 95 Nasal 3.0L Cannula 05/18 1615 98.2 80 24 114/58 94 Nasal 3.0L Cannula 05/18 1600 97 Nasal 3.0L Cannula Intake & Output 05/19 1600 05/19 0800 05/19 0000 Intake Total 120 420 Output Total 200 200 Balance -80 220 Intake, IV 300 Intake, Oral 120 120 Number 0 0 Bowel Movements Output, Urine 200 200 Patient 222 lb Weight Exam Other Physical Findings: gen awake and alert heent ncat cvs s1, s2 lungs rare rhonchi abd soft bs+ ext without edema Results Last 24 Hrs of Lab Results: Laboratory Tests 05/19/16 0700: CBC w Diff MAN DIFF ORDERED, RBC 3.51 L, MCV 89.6, MCH 28.1, RDW 17.7 H, MPV 9.6, Gran % 94.1 H, Lymphocytes % 3.8 L, Monocytes % 2.1, Eosinophils % 0, Basophils % 0 L, Absolute Granulocytes 14.2 H, Absolute Lymphocytes 0.6 L, Absolute Monocytes 0.3, Absolute Eosinophils 0, Absolute Basophils 0, Platelet Estimate VERIFIED BY SMEAR, Polychromasia 1+, Poikilocytosis 1+, Anisocytosis 1+ , Ovalocytes 1+, PUBS MCHC 31.4 L 05/19/16 0556: Anion Gap 6, Estimated GFR 39 L, BUN/Creatinine Ratio 17.1, Magnesium 2.4 H Impression/Plan Impression/Plan Impression/Plan: Impression 76 year old man * hypercarbic and hypoxemic respiratory failure, possible bronchitis vs atelectasis vs pna * possible uti * systolic chf seems stable at this point Plan - trc/nebs - dc solumedrol - prednisone 40mg x 3 days, then stop - monitor on ceftriaxone - diuresis - f/u ins/outs, daily weights - nocturnal bipap TTS 35 min DG GM DC planning
--- NOTE | 2016-05-19 13:13 | RADIOLOGY REPORT ---
EXAMINATION: XR PORTABLE CHEST CLINICAL INFORMATION: Respiratory failure. COMPARISON: Prior chest radiographs, most recently 05/18/2016. TECHNIQUE: Portable AP view of the chest was obtained. FINDINGS: The examination is rotated and lordotic. The heart, great vessels, pulmonary vasculature and mediastinum are stable. There is stable cardiomegaly. There has been a prior median sternotomy. There is mild, increased right base linear atelectasis. There is interim appearance of a mild to moderate focus of linear atelectasis in mid left lung field. There is increased retrocardiac airspace disease, with a partially obscured left hemidiaphragm. The right lateral costophrenic angles is cut off of the [id number]. No pneumothorax is seen. There is no definite pleural effusion. No acute osseous abnormality is seen. IMPRESSION: 1. There is cardiomegaly, without congestive heart failure. 2. There is bilateral airspace disease, as above, increased from prior. Recommend continued radiographic follow-up to clearance. 3. Limited examination, as detailed.
[2016-05-19] MEDS ORDERED: PREDNISONE20 M1 PO (13:26)
--- NOTE | 2016-05-19 13:28 | Patient Discharge Instructions ---
Discharge Instructions General Discharge Information You were seen/treated for: Acute on chronic hypercapneic respiratory failure causing altered mental status Special Instructions: Please follow up with PCP and senior project leader/team lead in 1 week. please repeat CBC in 2 days looking of worsening of his WBCs. Diet Continue normal diet: Yes Recommended Diet: Diabetic Activity Full Activity/No Limits: Yes Acute Coronary Syndrome Inclusion Criteria At DC or during hospital stay patient has or had the following: ACS DIAGNOSIS No Discharge Core Measures Meds if any: Prescribed or Continued at Discharge Meds if any: NOT Prescribed or Continued at Discharge Congestive Heart Failure Inclusion Criteria At DC or during hospital stay patient has or had the following: CHF DIAGNOSIS No Discharge Core Measures Meds if any: Prescribed or Continued at Discharge Meds if any: NOT Prescribed or Continued at Discharge Cerebrovascular accident Inclusion Criteria At DC or during hospital stay patient has or had the following: CVA/TIA Diagnosis No Discharge Core Measures Meds if any: Prescribed or Continued at Discharge Meds if any: NOT Prescribed or Continued at Discharge Venous thromboembolism Inclusion Criteria VTE Diagnosis No VTE Type NONE VTE Confirmed by (Test) NONE Discharge Core Measures - Per Current guidelines, there needs to be overlap - treatment for the first 5 days of Warfarin therapy. - If discharged on Warfarin prior to 5 days of - overlap therapy, the patient will need to be - assessed for post discharge needs including - *Post discharge parental anticoagulation - *Warfarin and/or parental anticoagulation education - *Follow up date to check INR post discharge At least 5 days overlap therapy as Inpatient No Meds if any: Prescribed or Continued at Discharge Note: Overlap Therapy is Warfarin and Anticoagulant Meds if any: NOT Prescribed or Continued at Discharge
--- NOTE | 2016-05-19 15:07 | Discharge Summary ---
Visit Information Visit Dates Admission Date: 05/17/16 Discharge Date: 05/21/2016 Hospital Course Course Attending Physician: Rober Tao MD Primary Care Physician: RADHA BARRETT,[place] Hospital Course: This is a 76 year-old male with past medical history of type 2 diabetes mellitus , coronary artery disease status post CABG, COPD on 2 L of home oxygen, systolic CHF, CVA, obstructive sleep apnea on CPAP, CK D stage IIIB him a hypertension, previous multiple admissions for CHF and COPD, resident of [facility] was [facility] with chief complaint of worsening lethargy and confusion on 05/17/2016. Vitals on presentation : patient was afebrile, pulse of 85, respirations 24, blood pressure of 123/57, he was 95% saturating on 4 L of nasal cannula and was put on BiPAP with 30% rate initially, currently patient continues to be on BiPAP Relevant labs on presentation : White Count of 11.6, no bands. H/H of 9.8/30.9 (baseline H/H - 9.7/30), MCV- 88.7. Platelet of 214. Electrolytes within normal limits, BUN and creatinine 29/2.1 ( 1.4/26) glucose 185, liver function tests negative, first set of troponin negative. UA was negative for nitrite, positive for leukocyte esterase small amount, WBCs of 25-50 red Initial lactic acid of 1.4. Chest x-ray showed left basilar consolidation and small left pleural effusion. Last echocardiogram in March 2016 with ejection fraction 50%, right ventricular pressure of 46 and mild TR. probnp - 7040 ( baseline has been higher 2000 to 3000) Assessment and plan. Problem #1 acute on chronic hypercarbic respiratory failure most likely secondary to COPD exacerbation along with baseline pulmonary hypertension. Problem #2 altered mental status secondary to hypercarbia. Problem #3 acute kidney injury on top of CKD is IIIB. Problem #4 obstructive sleep apnea on CPAP. Problem #5 Urinary tract infection. Problem #6 decompensated heart failure with mildly elevated ProBNP from baseline. Problem #1 acute on chronic hypoxic on chronic hypercarbic respiratory failure. Initially when the patient came in his ABG was 7.38/65/90/37, he was placed on the BiPAP and repeat ABG after 2 hours improved hypercarbia. ABG came down to 7.42/55/73/35. The patient does have elevated baseline carbon dioxide around 50 , however he had worsening respiratory failure perhaps secondary to some kind of pneumonia versus UTI infection. Initially the patient was treated for hospital- acquired pneumonia with questionable opacity on the chest x-ray however subsequently he did not spike fever, therefore after 1 dose of vancomycin and ceftazidime he was treated with IV ceftriaxone. His mental status was also thought to be secondary to hypercarbia, which gradually improved as the ABG improved. Of note he does have baseline pulmonary hypertension. He was kept nothing by mouth while on BiPAP, a swallow evaluation was done along with aspiration precautions and his diet was advanced as per recommendations. She needs to have CBC done after 2 days in rehabilitation follow-up for leukocytosis Problem #2 pulmonary hypertension secondary to COPD and obstructive sleep apnea. Baseline elevated right ventricular pressure of 46. Continue using CPAP at home. Problem #3 initial suspected pneumonia along with urinary tract infection. Initially the left basilar consolidation was thought to be pneumonia however the patient did not have significantly elevated white count and neither had fever still his altered mental status was thought to be secondary to some kind of an infectio liley UTI. Patient did receive one time off IV vancomycin and ceftazidime for hospital-acquired pneumonia as he was a resident of rehabilitation Center, however subsequently the antibiotics were switched IV ceftriaxone for UTI and later Augmentin. Discharging physician: Dr. Love. Complications: None Allergies: Coded Allergies: NO KNOWN ALLERGIES (04/17/15) Disposition Summary Disposition Principal Diagnosis: Epicardial be hypoxemic respiratory failure secondary to underlying COPD Additional Diagnosis: Possible UTI Discharge Disposition: SNF Discharge Instructions General Discharge Information Code Status: Full Code Patient's Diet: Consistent carbohydrate 3 Mechanical chopped with nectar thickened liquid Patient's Activity: As tolerated with assistance Follow-Up Instructions/Appts: Please follow up with PCP and jumpbasting facing baster in 1 week. please repeat CBC in 2 days looking of worsening of his WBCs. Medications at Discharge Discharge Medications: Continue taking these medications: Rosuvastatin Calcium (Crestor) 10 MG TABLET 1 Tablet ORAL Every night Comments: NOT GIVEN IN HOSPITAL Tiotropium Cuddy (Spiriva) 18 MCG CAP.W.DEV 1 Capsule Inhale through mouth DAILY Comments: NOT GIVEN IN HOSPITAL Escitalopram Oxalate (Escitalopram Oxalate) 10 MG TABLET 1 Tablet ORAL DAILY Qty = 30 Comments: Last Taken: 05/21/16 Time: 1000 AM Ipratropium/Albuterol Sulfate (Iprat-Albut 0.5-3(2.5) MG/3 Ml) 3 ML AMPUL.NEB 1 Amp Inhale through mouth 4 TIMES A DAY Comments: Last Taken: 05/20/16 Time: 0940AM Polyethylene Glycol 3350 (Miralax) 17 GRAM POWD.PACK 1 Packet ORAL DAILY Qty = 2 Instructions: dissolve in water Comments: Last Taken: 05/21/16 Time: 1000 AM Pantoprazole Sodium (Protonix) 40 MG TABLET.DR 1 Tablet ORAL DAILY Qty = 30 Comments: NOT GIVEN IN HOSPITAL Fluticasone/Salmeterol (Advair 250-50 Diskus) 250 MCG-50 MCG/DOSE BLST.W.DEV 1 Puff Inhale through mouth TWICE DAILY Qty = 60 Comments: NOT TAKEN IN HOSPITAL Furosemide (Furosemide) 20 MG TABLET 1 Tablet ORAL EVERY 48 HOURS (Every 2 days) Comments: NOT GIVEN IN HOSPITAL Glipizide (Glipizide) 5 MG TABLET 1 Tablet ORAL DAILY Comments: NOT GIVEN IN HOSPITAL Insulin Lispro (Humalog) 100 UNIT/ML VIAL Inject into fatty tissue SEE INSTRUCTIONS Instructions: 151-200 2 U 201-250 4 U 251-300 6 U 301-350 8 U 351-400 10 U >400 or < 60 call MD Comments: NOVALOG GIVEN IN HOSPITAL Magnesium Oxide (Magnesium) 400 MG CAPSULE 1 Capsule ORAL DAILY Qty = 30 Comments: NOT GIVEN IN HOSPITAL Insulin Detemir (Levemir) 100 UNIT/ML VIAL 10 Units Inject into fatty tissue TWICE DAILY Qty = 30 Instructions: please continue levemir for the next 6 days and stop on april 22, 2016 Comments: Last Taken: 05/21/16 Time: 1000AM Budesonide (Budesonide) 0.5 MG/2 ML AMPUL.NEB 1 Vial Inhale Solution TWICE DAILY Comments: NOT GIVEN IN HOSPITAL Sennosides (Senna) 8.6 MG TABLET 1 Tablet ORAL 1600 Comments: Last Taken: 05/20/16 Time: 9:00 PM Start taking the following new medications: Amoxicillin/Potassium Clav (Augmentin 875-125 Tablet) 875 MG-125 MG TABLET 1 Tablet ORAL TWICE DAILY Days = 3 No Refills Comments: NOT GIVEN IN HOSPITAL Cholecalciferol (Vitamin D3) 1,000 UNIT TABLET 1,000 International Unit ORAL DAILY Qty = 30 No Refills Comments: Last Taken: 05/20/16 Time: 0900AM Prednisone (Prednisone) 20 MG TABLET 2 Tablet ORAL DAILY Qty = 2 No Refills Instructions: Please take until 05/21/16 Comments: Last Taken: 05/21/16 Time: 1000AM Copies To: KIM BARRETT,Jamison MEDEROS Attending MD Review Statement Documenting Attending: HARIS BARRETT,ROBER
--- NOTE | 2016-05-19 16:25 | NUR ---
AT THIS TIME PT ARRIVED TO FROM ICU, PT OREINTED TO ROOM AND CALL EMANUEL WEISS, SEE PT ASSESSMENT, WILL CONT TO MONITOR
[2016-05-19 16:40] VITALS: BP 130/64
--- NOTE | 2016-05-19 20:37 | NUR ---
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
[2016-05-19 22:06] VITALS: BP 132/62
[2016-05-20 06:19] VITALS: BP 138/62
--- NOTE | 2016-05-20 07:19 | PN- Housestaff ---
See Addendum Subjective Follow-up For: -Acute on chronic hypercarbic respiratory failure -copd exacerbation -RICHARD on CKD -low vit d Subjective: Afebrile, saturating well on 3 L of oxygen, reported significant improvement on his shortness breath. Acute overnight events reported. Patient denies any current complaints. Review of Systems Constitutional: Reports: no symptoms. Objective Last 24 Hrs of Vital Signs/I&O Vital Signs Date Time Temp Pulse Resp B/P Pulse O2 O2 Flow FiO2 Ox Delivery Rate 05/20 0721 24 94 Nasal 3.0L Cannula 05/20 0619 97.5 79 22 138/62 98 CPAP 05/20 0321 72 98 05/20 0030 76 97 05/20 0000 Nasal 3.0L Cannula 05/19 2259 80 98 05/19 2206 97.9 86 20 132/62 98 Nasal 3.0L Cannula 05/19 2030 94 Nasal 3.0L Cannula 05/19 1640 98.3 90 20 130/64 96 Nasal 3.0L Cannula 05/19 1625 Nasal 3.0L Cannula 05/19 0901 93 Nasal 3.0L Cannula 05/19 0901 93 Intake & Output 05/20 1600 05/20 0800 05/20 0000 Intake Total 900 Output Total 300 300 Balance -300 600 Intake, Oral 900 Output, Urine 300 300 Patient 101.151 kg Weight Physical Exam General Appearance: Alert, Oriented X3, Cooperative, No Acute Distress, obese Skin: No Rashes Cardiovascular: Regular Rate, Normal S1, Normal S2, No Murmurs Lungs: decreased air entry over lungs bilaterally Abdomen: Soft, No Tenderness Neurological: Normal Speech Extremities: No Edema Current Medications: Current Medications Sig/Amadeo Start time Last Medication Dose Route Stop Time Status Admin Acetaminophen 1,000 MG Q6P PRN 05/17 2115 AC N/A 1 UNIT IV Albuterol Sulfate 3 ML TID 05/19 2200 AC INH Albuterol Sulfate 3 ML EVERY 4 HRS/AWAKE 05/18 1200 DC 05/19 INH 1246 Atorvastatin Calcium 40 MG 1700 05/18 1700 AC 05/19 PO 1655 Ceftriaxone Sodium 1,000 MG DAILY 05/18 1002 AC 05/19 IV 1015 Cholecalciferol 1,000 IU DAILY 05/18 1258 AC 05/19 PO 1015 Escitalopram Oxalate 10 MG DAILY 05/18 1244 AC 05/19 PO 1015 Heparin Sodium 5,000 UNIT Q8 05/17 2200 AC 05/20 (Porcine) SC 0525 Insulin Aspart 3 UNITS ONCE ONE 05/19 2330 DC 05/19 SC 05/19 2331 2329 Insulin Aspart 0 AT BEDTIME 05/18 2200 AC 05/19 SC 2112 Insulin Aspart 0 TIDAC 05/18 1700 AC 05/19 SC 1655 Ipratropium [place] 2.5 ML TID 05/19 2200 AC INH Ipratropium [place] 2.5 ML EVERY 4 HRS/AWAKE 05/18 1200 DC 05/19 INH 1246 Methylprednisolone 40 MG Q12 05/18 1130 DC 05/19 IV 1015 Omeprazole 40 MG DAILY AC 05/19 0700 AC 05/20 PO 0525 Polyethylene Glycol 17 GM DAILY 05/18 1247 AC 05/18 PO 1541 Prednisone 40 MG DAILY 05/20 1000 AC PO 05/22 1001 Senna 187 MG AT BEDTIME 05/18 2200 AC 05/19 PO 2111 Last 24 Hrs of Lab/Sumanth Results Last 24 Hrs of Labs/Mics: Laboratory Tests 05/20/16 0620: Sodium Pending, Potassium Pending, Chloride Pending, Carbon Dioxide Pending, Anion Gap Pending, BUN Pending, Creatinine Pending, BUN/Creatinine Ratio Pending , Magnesium Pending, CBC w Diff Pending, WBC Pending, RBC Pending, Hgb Pending, Hct Pending, MCV Pending, MCH Pending, RDW Pending, Plt Count Pending, MPV Pending, PUBS MCHC Pending Microbiology 05/19 1433 STOOL: Clostridium difficile Toxin A & B - RECD Assessment/Plan Assessment: # Acute on chronic hypercarbic respiratory failure most likely secondary to COPD exacerbation along with baseline pulmonary hypertension. Possible Pneumonia. He was Given 1Xvanc and ceftaz in ED, he was initially admitted to ICU started and BiPAP and was given solumedrol 40 q 12 * Continue ceftriaxone * Continue bipap when necessary * Aspiration precautions * Steroid 40 mg prednisone for 2 days then stop. * Patient is stable most likely will be discharged today with instructions to take antibiotic and steroid exactly as prescribed # Altered mental status (resolved) Most likely multifactorial in nature, 2/2 hypercarbia, pneumonia and possible UTI * Patient will be discharged today and instructed to finish the Augmentin course and use BiPAP at night. # RICHARD on CKD * Improving * We restarted his Lasix # Low Vit D * Vit D supplement started # DM * Accuchtl, novolog ss # Continue home meds PPI Senna Miralax Lexapro Diet: CC3 (chopped and nectar) DVT ppx: heparin PP wit iv tylenol, avoid narcotics FC Problem List: 1. Chronic respiratory failure with hypoxia and hypercapnia Pain Ratin Pain Location: na Pain Goal: Remain pain free Pain Plan: See assessment and plan Tomorrow's Labs & Rationales: BEP and CBC if not discharged today DVT ppx: heparin PP wit iv tylenol, avoid narcotics FC
[2016-05-20 08:38] LABS: ABSOLUTE BASOPHIL COUNT 0 /CUMM (0.0-0.2); ABSOLUTE EOSINOPHIL COUNT 0 /CUMM (0.0-0.7); ABSOLUTE GRANULOCYTE CT 18.6 /CUMM (1.4-6.5); ABSOLUTE LYMPH COUNT 0.7 /CUMM (1.2-3.4); ABSOLUTE MONOCYTE COUNT 1.2 /CUMM (0.10-0.60); BASOPHIL % 0.1 % (0.0-2.0); EOSINOPHIL % 0.1 % (0-5); HEMATOCRIT 27.7 % (42-52); MEAN CORPUSCULAR HGB 27.9 PG (27.0-31.0); MEAN CORPUSCULAR HGB CONC 31.4 G/DL (33.0-37.0); MEAN CORPUSCULAR VOLUME 88.9 FL (80.0-94.0); MEAN PLATELET VOLUME 9.8 FL (7.4-10.4); RBC DISTRIBUTION WIDTH 17.2 % (11.5-14.5); RED BLOOD CELL CT 3.11 /CUMM (4.70-6.10); WHITE BLOOD CELL COUNT 20.6 /CUMM (4.8-10.8)
[2016-05-20 09:16] LABS: PLATELET COUNT 294 /CUMM (130-400)
[2016-05-20 09:17] LABS: GRANULOCYTE % 90.2 % (42.2-75.2)
[2016-05-20] MEDS ORDERED: VITAMIN D31000 UNI2 PO (09:34)
[2016-05-20 09:37] VITALS: BP 138/62
[2016-05-20] MEDS ORDERED: AUGMENTIN 875-1 EACH PO ×2 (10:57→15:52)
--- NOTE | 2016-05-20 11:18 | NUR ---
Physical Therapy: Pt is from an ECF. Baseline per nursing: non ambulatory, w/c bound and assist for transfers. Acute skilled PT is not indicated at this time. Pt will return back to ECF/[facility] upon discharge. Thank you.
--- NOTE | 2016-05-20 11:20 | PN- Pulmonary ---
See Addendum Subjective HPI/Critical Care Issues: pt seen and examined doing well comfortable dc anticipated no new events creatinine improved Objective Current Medications: Current Medications Sig/Amadeo Start time Last Medication Dose Route Stop Time Status Admin Acetaminophen 1,000 MG Q6P PRN 05/17 2115 AC N/A 1 UNIT IV Albuterol Sulfate 3 ML TID 05/19 2200 AC 05/20 INH 0936 Albuterol Sulfate 3 ML EVERY 4 HRS/AWAKE 05/18 1200 DC 05/19 INH 1246 Atorvastatin Calcium 40 MG 1700 05/18 1700 AC 05/19 PO 1655 Ceftriaxone Sodium 1,000 MG DAILY 05/18 1002 AC 05/20 IV 0908 Cholecalciferol 1,000 IU DAILY 05/18 1258 AC 05/20 PO 0907 Escitalopram Oxalate 10 MG DAILY 05/18 1244 AC 05/20 PO 0907 Heparin Sodium 5,000 UNIT Q8 05/17 2200 AC 05/20 (Porcine) SC 0525 Insulin Aspart 3 UNITS ONCE ONE 05/19 2330 DC 05/19 SC 05/19 2331 2329 Insulin Aspart 0 AT BEDTIME 05/18 2200 AC 05/19 SC 2112 Insulin Aspart 0 TIDAC 05/18 1700 AC 05/20 SC 0907 Ipratropium [place] 2.5 ML TID 05/19 2200 AC 05/20 INH 0935 Ipratropium [place] 2.5 ML EVERY 4 HRS/AWAKE 05/18 1200 DC 05/19 INH 1246 Methylprednisolone 40 MG Q12 05/18 1130 DC 05/19 IV 1015 Omeprazole 40 MG DAILY AC 05/19 0700 AC 05/20 PO 0525 Polyethylene Glycol 17 GM DAILY 05/18 1247 AC 05/18 PO 1541 Prednisone 40 MG DAILY 05/20 1000 AC 05/20 PO / 1001 0907 Senna 187 MG AT BEDTIME 05/18 2200 AC 05/19 PO 2111 Vital Signs & I&O Last 24 Hrs of Vitals and I&O: Vital Signs Date Time Temp Pulse Resp B/P Pulse O2 O2 Flow FiO2 Ox Delivery Rate 05/20 0940 96 Nasal 3.0L Cannula 05/20 0937 97.5 79 24 138/62 05/20 0800 94 Nasal 3.0L Cannula 05/20 0721 24 94 Nasal 3.0L Cannula 05/20 0619 97.5 79 22 138/62 98 CPAP 05/20 0321 72 98 05/20 0030 76 97 05/20 0000 Nasal 3.0L Cannula 05/19 2259 80 98 05/19 2206 97.9 86 20 132/62 98 Nasal 3.0L Cannula 05/19 2030 94 Nasal 3.0L Cannula 05/19 1640 98.3 90 20 130/64 96 Nasal 3.0L Cannula 05/19 1625 Nasal 3.0L Cannula Intake & Output 05/20 1600 05/20 0800 05/20 0000 Intake Total 900 Output Total 300 300 Balance -300 600 Intake, Oral 900 Output, Urine 300 300 Patient 223 lb Weight Exam Other Physical Findings: gen awake and alert heent ncat cvs s1, s2 lungs rare rhonchi abd soft bs+ ext without edema Results Last 24 Hrs of Lab Results: Laboratory Tests 05/20/16 0620: Anion Gap 7, Estimated GFR 39 L, BUN/Creatinine Ratio 17.6, Magnesium 2.2, CBC w Diff NO MAN DIFF REQ, RBC 3.11 L, MCV 88.9, MCH 27.9, RDW 17.2 H, MPV 9.8, Gran % 90.2 H, Lymphocytes % 3.6 L, Monocytes % 6.0, Eosinophils % 0.1, Basophils % 0.1, Absolute Granulocytes 18.6 H, Absolute Lymphocytes 0.7 L, Absolute Monocytes 1.2 H, Absolute Eosinophils 0, Absolute Basophils 0, PUBS MCHC 31.4 L Impression/Plan Impression/Plan Impression/Plan: Impression 76 year old man * improved hypercarbic and hypoxemic respiratory failure secondary to underlying COPD due to underlying bronchitis and likely underlying atelectasis given immobilitypossible bronchitis vs atelectasis vs pna * possible uti * systolic chf seems stable at this point * leukocytosis possibly steroid related Plan - trc/nebs - prednisone 40mg x 2 more days, then stop - was on ceftriaxone for uti, can dc on augmentin - diuresis - f/u ins/outs, daily weights - nocturnal bipap DC planning with repeat of wbc as an outpt to ensure resolution, can be related to steroids DC planning
--- NOTE | 2016-05-20 12:29 | NUR ---
NURSING NOTE: PT DIFFUCULT STICK; STAT BEP DRAWN AT THIS TIME. FSG 418. NOVALOG 14 UNITS GIVEN AT THIS TIME, WILL CHECK AT 1400PM PER MD 073. CONT TO MONITOR. PT AWAKE, A/OX3, DENIES COMPLAINTS, LUNCH TRAY GIVEN
[2016-05-20 13:49] VITALS: BP 104/52
--- NOTE | 2016-05-20 14:12 | NUR ---
NURSING NOTE: FSG RECHECK 405; WELL LOGGING MUD ANALYSIS CAPTAIN AWARE. NO FURTHER ORDERS AT THIS TIME. CONT TO MONITOR
--- NOTE | 2016-05-20 18:17 | NUR ---
AT 1600, PATIENT'S BLOOD SUGAR WAS 480, PER DR CARBALLO & DR YING, GIVE 10 UNITS REG INSULIN NOW. ONLY GIVE LEVEMIR THIS EVENING. RECHECK AT 1700-395, GIVE 12 UNITS REGULAR INSULIN PER EMAR. PT ATE 50% OF DINNER.
[2016-05-20 22:52] VITALS: BP 122/58
[2016-05-21 06:30] VITALS: BP 124/62
[2016-05-21 08:22] LABS: ABSOLUTE BASOPHIL COUNT 0 /CUMM (0.0-0.2); ABSOLUTE EOSINOPHIL COUNT 0 /CUMM (0.0-0.7); ABSOLUTE GRANULOCYTE CT 14.6 /CUMM (1.4-6.5); ABSOLUTE LYMPH COUNT 1.4 /CUMM (1.2-3.4); ABSOLUTE MONOCYTE COUNT 1.4 /CUMM (0.10-0.60); BASOPHIL % 0.1 % (0.0-2.0); EOSINOPHIL % 0 % (0-5); GRANULOCYTE % 83.5 % (42.2-75.2); HEMATOCRIT 27.6 % (42-52); MEAN CORPUSCULAR HGB 27.9 PG (27.0-31.0); MEAN CORPUSCULAR HGB CONC 31.5 G/DL (33.0-37.0); MEAN CORPUSCULAR VOLUME 88.4 FL (80.0-94.0); MEAN PLATELET VOLUME 9.1 FL (7.4-10.4); PLATELET COUNT 313 /CUMM (130-400); RED BLOOD CELL CT 3.13 /CUMM (4.70-6.10); WHITE BLOOD CELL COUNT 17.5 /CUMM (4.8-10.8)
--- NOTE | 2016-05-21 08:43 | PN- Housestaff ---
See Addendum Subjective Follow-up For: Acute on chronic hypercarbic respiratory failure COPD exacerbation Acute on chronic kidney disease Complaints: no complaints Subjective: Patient is seen and examined at the bedside. He was quite sleepy. He responded to all verbal commands. Denies for any fever, cough, shortness of breath, headache, blurry vision. Review of Systems Constitutional: Denies: no symptoms. Comments: Patient denies for any active complaints. Objective Last 24 Hrs of Vital Signs/I&O Vital Signs Date Time Temp Pulse Resp B/P Pulse O2 O2 Flow FiO2 Ox Delivery Rate 05/21 1453 99.1 71 20 128/62 96 Nasal 3.0L Cannula 05/21 1359 97.8 63 20 124/62 05/21 1216 96 Nasal 2.0L Cannula 05/21 1015 97 Nasal 3.0L Cannula 05/21 0800 98 Nasal 3.0L Cannula 05/21 0630 97.8 63 20 124/62 98 05/21 0602 59 98 05/21 0012 58 98 05/21 0000 BIPAP 05/20 2252 96.9 66 20 122/58 97 BIPAP 05/20 2024 96 Nasal 3.0L Cannula 05/20 1600 99 Nasal 3.0L Cannula Intake & Output 05/21 1600 05/21 0800 05/21 0000 Intake Total 250 120 600 Output Total Balance 250 120 600 Intake, IV 10 Intake, Oral 240 120 600 Patient 103.419 kg Weight Physical Exam General Appearance: Oriented X3, Cooperative, No Acute Distress, more sleepy but wakeful after talking to him. He responde to all verbal commands, morbidly obese Skin: No Rashes, No Breakdown Cardiovascular: Normal S1, Normal S2 Lungs: decrease air entry and occasional crepts Abdomen: Soft Neurological: Normal Speech Extremities: No Clubbing, No Cyanosis, No Edema Vascular: Normal Pulses Current Medications: Current Medications Sig/Amadeo Start time Last Medication Dose Route Stop Time Status Admin Acetaminophen 1,000 MG Q6P PRN 05/17 2114 AC N/A 1 UNIT IV Albuterol Sulfate 3 ML TID 05/19 2200 AC 05/20 INH 1942 Amoxicillin 500 MG TID 05/21 1000 AC PO Atorvastatin Calcium 40 MG 1700 05/18 1700 AC 05/20 PO 1612 Ceftriaxone Sodium 1,000 MG DAILY 05/18 1002 DC 05/20 IV 0908 Cholecalciferol 1,000 IU DAILY 05/18 1258 AC 05/20 PO 0907 Escitalopram Oxalate 10 MG DAILY 05/18 1244 AC 05/20 PO 0907 Heparin Sodium 5,000 UNIT Q8 05/17 2200 AC 05/21 (Porcine) SC 0557 Insulin Aspart 10 UNITS ONCE ONE 05/20 1615 DC 05/20 SC 05/20 1616 1612 Insulin Aspart 14 UNITS ONCE ONE 05/20 1430 DC 05/20 SC 05/20 1431 1433 Insulin Aspart 0 AT BEDTIME 05/18 2200 AC 05/20 SC 2138 Insulin Aspart 0 TIDAC 05/18 1700 AC 05/20 SC 1701 Insulin Detemir 10 UNITS BID 05/20 1522 AC 05/20 SC 2138 Ipratropium [place] 2.5 ML TID 05/19 2200 AC 05/20 INH 1942 Omeprazole 40 MG DAILY AC 05/19 0700 AC 05/21 PO 0557 Patient Medication 1 ED .ST-MED ONE 05/20 1333 MI Teaching ED 05/20 1334 Polyethylene Glycol 17 GM DAILY 05/18 1247 AC 05/18 PO 1541 Prednisone 40 MG DAILY 05/20 1000 AC 05/20 PO 04/ 1001 0907 Senna 187 MG AT BEDTIME 05/18 2200 AC 05/20 PO 2138 Last 24 Hrs of Lab/Sumanth Results Last 24 Hrs of Labs/Mics: Laboratory Tests 05/21/16 0615: Anion Gap 5, Estimated GFR 49 L, BUN/Creatinine Ratio 19.3, CBC w Diff Pending, WBC Pending, RBC Pending, Hgb Pending, Hct Pending, MCV Pending, MCH Pending, RDW Pending, Plt Count Pending, MPV Pending, Gran % Pending, Lymphocytes % Pending, Monocytes % Pending, Eosinophils % Pending, Basophils % Pending, Absolute Granulocytes Pending, Absolute Lymphocytes Pending, Absolute Monocytes Pending, Absolute Eosinophils Pending, Absolute Basophils Pending, PUBS MCHC Pending 05/20/16 1230: Anion Gap 4 L, Estimated GFR 42 L, BUN/Creatinine Ratio 18.8 Assessment/Plan Assessment: 76-year-old obese man with history of coronary artery disease status post CABG, congestive heart failure with reduced ejection fraction of 30% (echo on 2015) and 50% on echo in 2017, COPD on 2 home oxygen and obstructive sleep apnea on CPAP, CTD stage IIIB, and multiple admission due to congestive heart failure and COPD was admitted with history of drowsy and lethargic, and found to be in acute on chronic hypercarbic respiratory failure. Plan - Discharge today # Acute on chronic hypercarbic respiratory failure most likely secondary to COPD exacerbation along with baseline pulmonary hypertension along with Possible Pneumonia. * Patient started on tablet Augmentin 825 milligrams twice a day * Advised to Continue bipap when necessary * Aspiration precautions * Advised to continue tablet prednisone 40 mg x 1 days then stop. # Altered mental status (resolved)Most likely multifactorial in nature, 2/2 hypercarbia, pneumonia and possible UTI * Advised to use BiPAP in the night and as needed # RICHARD on CKD -Improving * Advised to continue Lasix # Low Vit D * Advised to continue with vitamin D and follow-up with PCP as an outpatient # DM * Advised to check the blood sugar level regularly and follow-up with the PCP as an outpatient # UTI -urine was growing enterococcus and which was sensitive to amoxicillin, advised to continue Augmentin for total 7 days # Continue home meds PPI Senna Miralax Lexapro Diet: CC3 (chopped and nectar) DVT ppx: heparin PP wit iv tylenol, avoid narcotics FC Problem List: 1. Obesity 2. CKD (chronic kidney disease) stage 3, GFR 30-59 ml/min 3. Chronic respiratory failure with hypoxia and hypercapnia 4. Sepsis Pain Ratin Pain Location: Not applicable Pain Goal: Remain pain free Pain Plan: Avoid sedatives Tomorrow's Labs & Rationales: Not required as patient is discharged DVT/Prophylaxis: mechanical, pharmacological
[2016-05-21 13:59] VITALS: BP 124/62
[2016-05-21 14:53] VITALS: BP 128/62
--- NOTE | 2016-05-21 15:15 | NUR ---
NURSING NOTE: PATIENT TO SNF VIA [facility] AT THIS TIME; A&OX3, STABLE ON 3L O2, NO COMPLAINTS AT THIS TIME.
== END 2016-05-21 15:15 | DRG 189 ==
LOC: ENRESERVTM → ENRESERVDT → CANRESERV → ERH 14:24 → CRI 17:25 → 2NB 17:25 → ERHI 17:25 → 2NB 17:25 → ENPENDDIS 17:25 → EDBEDREQ 18:15 → ERHI 18:24 → CRI 20:01 → 2NB 05-19 16:26
PROVIDERS: Physician Assistant; Radiology Diagnostic Radiology; Student in an Organized Health Care Education/Training Program; ADMIT Internal Medicine
DX: J96.21 Acute and chronic respiratory failure with hypoxia (principal); J18.9 Pneumonia, unspecified organism; I13.0 Hypertensive heart and chronic kidney disease with heart failure and stage 1 through stage 4 chronic kidney disease, or unspecified chronic kidney disease; I50.32 Chronic diastolic (congestive) heart failure; Z99.81 Dependence on supplemental oxygen; J44.1 Chronic obstructive pulmonary disease with (acute) exacerbation; N39.0 Urinary tract infection, site not specified; N18.3 Chronic kidney disease, stage 3 (moderate); J96.22 Acute and chronic respiratory failure with hypercapnia; E66.9 Obesity, unspecified; I25.10 Atherosclerotic heart disease of native coronary artery without angina pectoris; Z95.1 Presence of aortocoronary bypass graft; G47.33 Obstructive sleep apnea (adult) (pediatric); E78.5 Hyperlipidemia, unspecified
CPT/HCPCS: 2NBSP; CCU; 36415; 81001; 82436; 87040; 87070; 87086; 87147; 87449; 87450; 93005; 93010; 96374; 96375; 99291; J0696; J0713; J1644; J2310; J2920; J3370; J7040

== ENCOUNTER 2016-06-10 18:50 | Inpatient (IN) | payer OTHER, MEDICARE ==
[~2016-06-10] VITALS: Ht 172.7 cm; Wt 109.3 kg
[~2016-06-10 18:50] MED LIST changes: +AUGMENTIN 875-1 EACH PO; +BUDESONIDE0.5 MG/21 INH/SOL; +PREDNISONE20 M1 PO; +SENNA8.6 M3 PO; +VITAMIN D31000 UNI2 PO
--- NOTE | 2016-06-10 18:59 | NUR ---
PT BIBA FOR TACHYCARDIA, RHONCHI AND AMS PER [facility]. ON ARRIVAL PT ALERT AND ORIENTED X 4, INCONT OF SOFT BROWN STOOL, CHANGED AND ERASMO CARE PERFORMED. PT HAS RHONCHI THROUGHOUT ALL LUNG ANAYA
--- NOTE | 2016-06-10 18:59 | ED AMS/SEIZURE/WEAK/DIZZY ---
History of Present Illness General Chief Complaint: Altered Mental Status Stated Complaint: AMS Source: patient, EMS Exam Limitations: no limitations Allergies Coded Allergies: NO KNOWN ALLERGIES (04/17/15) Triage Note: PT BIBA FOR TACHYCARDIA, RHONCHI AND AMS PER [facility]. ON ARRIVAL PT ALERT AND ORIENTED X 4, INCONT OF SOFT BROWN STOOL, CHANGED AND ERASMO CARE PERFORMED. PT HAS RHONCHI THROUGHOUT ALL LUNG ANAYA Triage Nurses Notes Reviewed? yes HPI: This patient is a 76-year-old male with past medical history including COPD, obstructive sleep apnea, and pneumonia who was brought in by ambulance today from [facility] for evaluation of altered mental status, tachypnea, and rhonchi. Per EMS, staff at [facility] stated that over the last hours the patient came in hypotensive and tachypneic. The patient is denying any focal pain. He denied any fevers, chills, chest pain, difficulty breathing, abdominal pain, nausea, vomiting, back pain, or any urinary symptoms. The patient stated that he typically is on 2 L of oxygen. (FENG BANKS,DAVID) Vital Signs & Intake/Output Vital Signs & Intake/Output Vital Signs Date Time Temp Pulse Resp B/P B/P Pulse O2 O2 Flow FiO2 Mean Ox Delivery Rate 06/12 2233 138 98 06/12 1639 98 Nasal 2.0L Cannula 06/12 1541 98.2 136 20 104/62 94 Nasal 3.0L Cannula 06/12 1136 93 Nasal 2.0L Cannula 06/12 0802 97.8 133 20 98/66 97 BIPAP 06/12 0800 BIPAP 3.0L 06/12 0037 98.5 132 18 112/64 94 Nasal Cannula 06/12 0030 131 92 06/12 0000 BIPAP ED Intake and Output 06/12 0000 06/11 1200 Intake Total 2215.1 1260 Output Total 250 400 Balance 1965.1 860 Intake, IV 2035.1 1260 Intake, Oral 180 0 Output, Urine 250 400 Patient 224 lb Weight Weight Carolina Lift Measurement Method Reconcile Medications Acetaminophen (Acephen) 650 MG SUPP.RECT 1 SUP ID Q4H PRN PAIN/TEMP>100 ( Reported) Acetaminophen (Pain & Fever) 325 MG TABLET 2 TAB PO Q4H PRN PAIN/TEMP>/100 ( Reported) Albuterol Sulfate 2.5 MG/3 ML (0.083 %) VIAL.NEB 1 Vial INH/STEPHANE Q4P PRN SOB ( Reported) Amino Acids/Protein Hydrolys (Pro-Stat Sugar Free Liquid) (Unknown Strength) LIQUID 30 ML PO DAILY SUPPLEMENT (Reported) Bisacodyl 10 MG SUPP.RECT 1 SUP RC PRN CONSTIPATION (Reported) Budesonide 0.5 MG/2 ML AMPUL.NEB 1 Vial INH/STEPHANE BID BREATHING PROBLEMS ( Reported) Carvedilol (Coreg) 3.125 MG TABLET 1 TAB PO BID HEART/BP (Reported) Cholecalciferol (Vitamin D3) 1,000 UNIT TABLET 1,000 IU PO DAILY low vit d Escitalopram Oxalate 10 MG TABLET 1 TAB PO DAILY MENTAL HEALTH (Reported) Fluticasone/Salmeterol (Advair 250-50 Diskus) 250 MCG-50 MCG/DOSE BLST.W.DEV 1 PUF INH BID COPD (Reported) Furosemide 20 MG TABLET 1 TAB PO Q48 WATER PILL (Reported) Glipizide 5 MG TABLET 1 TAB PO DAILY DM (Reported) Insulin Detemir (Levemir) 100 UNIT/ML VIAL 10 UNITS SC BID diabetes please continue levemir for the next 6 days and stop on april 22, 2016 Insulin Lispro (Humalog) 100 UNIT/ML VIAL DM (Reported) 151-200 2 U 201-250 4 U 251-300 6 U 301-350 8 U 351-400 10 U >400 or < 60 call Ipratropium/Albuterol Sulfate (Iprat-Albut 0.5-3(2.5) MG/3 Ml) 3 ML AMPUL.NEB 1 AMP INH 4 TIMES/DAY COPD (Reported) Magnesium Oxide (Magnesium) 400 MG CAPSULE 1 CAP PO DAILY Low Mag Na Phos,M-B/Na Phos,Di-Ba (Fleet Enema) 19 GRAM-7 GRAM/118 ML ENEMA 1 E RC DAILY PRN CONSTIPATION (Reported) Pantoprazole Sodium (Protonix) 40 MG TABLET.DR 1 TAB PO DAILY DUODENAL ULCER Polyethylene Glycol 3350 (Miralax) 17 GRAM POWD.PACK 1 PAC PO DAILY CONSTIPATION dissolve in water Rosuvastatin Calcium (Crestor) 10 MG TABLET 1 TAB PO QPM CHOLESTEROL ( Reported) Sennosides (Senna) 8.6 MG TABLET 1 TAB PO 1600 CONSTIPATION (Reported) Tiotropium Florence (Spiriva) 18 MCG CAP.W.DEV 1 CAP INH DAILY BREATHING PROBLEMS (Reported) (DARRYL MARSHALL CANO) Past History Travel History Traveled to [place] past 21 day No Medical History Any Pertinent Medical History? 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 FH: diabetes mellitus MOTHER FH: breast cancer SISTER, ; Cause: Motor vehicle accident. BROTHER, ; Cause: Cancer. FH: cancer Hx Contributory? No (DAVID TONEY PA-C) Review of Systems Review of Systems Constitutional: Reports: see HPI. EENTM: Reports: no symptoms. Respiratory: Reports: see HPI. Cardiovascular: Reports: no symptoms. GI: Reports: no symptoms. Genitourinary: Reports: no symptoms. Musculoskeletal: Reports: no symptoms. Skin: Reports: no symptoms. Neurological/Psychological: Reports: no symptoms. All Other Systems: Reviewed and Negative (DAVID TONEY PA-C) Physical Exam Physical Exam General Appearance: well developed/nourished, no apparent distress, alert, awake Comments: Well-developed well-nourished person in no acute distress HEENT: Normal EENT exam, moist mucous membranes, head normocephalic Pupils equally round and reactive to light. Neck: Supple, no lymphadenopathy Back: Normal inspection Cardiovascular: Regular rate and rhythm with no murmurs, rubs, or gallops. No JVD or carotid bruits Respiratory: Chest nontender. Scattered rhonchi heard throughout all lung anaya. No wheezes or rales. No diminished breath sounds Abdomen: Soft, nontender and nondistended with no rebound or guarding Extremity: No edema, no calf tenderness to palpation, normal and equal pulses. Neuro: Alert oriented x4, cranial nerves II through XII grossly intact. Skin: No appreciable rash on exposed skin, skin is warm and dry. Psych: Mood and affect is normal Core Measures ACS in differential dx? Yes CVA/TIA Diagnosis: No Severe Sepsis Present: No Septic Shock Present: No (FENG BANKS,DAVID) Progress Differential Diagnosis: arrythmia, anemia, benign positional vertigo, CVA/stroke , dehydration, drug intoxication, encephalitis, electrolyte imbalance, GI bleed, hypoglycemia, hypoxia, intracranial Hem., intracranial mass/tumor, pneumonia, sepsis, UTI/pyelo Diagnostic Imaging: Viewed by Me: Radiology Read. Discussed w/RAD: Radiology Read. CXR Impression: PATIENT: FLORENTINO MARIE PRESENT AGE: 76 PATIENT ACCOUNT NO: [id number] : 41 LOCATION: ER ORDERING PHYSICIAN: DAVID TONEY PA-C SERVICE DATE: 06/10/16 EXAM TYPE: RAD - XRY- PORTABLE CHEST XRAY EXAMINATION: XR PORTABLE CHEST CLINICAL INFORMATION: Altered mental status Rule out pneumonia. COMPARISON: 05/19/2016 TECHNIQUE: Portable AP view of the chest was obtained. FINDINGS: Sternal wires are present anteriorly. Patient is rotated to the left. Cardiomegaly is unchanged. Mitral annular calcifications are again noted. There is persistent opacification of the left lung base which is unchanged from prior. There is mild atelectasis at the right lung base. Pulmonary vasculature appears normal. Degenerative disc disease is present in the thoracic spine. Bones are osteopenic. IMPRESSION: 1. Unchanged predominantly. No pulmonary edema. 2. Persistent opacification of the left lung base which is unchanged from prior and could be due to effusion, pneumonia, and/ or atelectasis. 3. Right lower lobe atelectasis. DICTATED BY: AROLDO AZAR MD DATE/TIME DICTATED:06/10/162021 TALLIER:JOSUE DATE/TIME TRANSCRIBED:06/10/162021 CONFIDENTIAL, DO NOT COPY WITHOUT APPROPRIATE AUTHORIZATION. <Electronically signed in Other Vendor System> SIGNED BY: AROLDO AZAR MD 06/10/162027 Initial ED EKG: normal intervals, RBBB, nonspecific ST T wave chg, tachycardia, 133 bpm Comments: 06/10/2016 8:35:41 PM: Dr. Andrews is currently at the patient's bedside for face- to-face evaluation. This patient was officially handed off to Dr. Andrews for ICU admission. (FENG BANKS,DAVID) Plan of Care: Orders Procedure Date/time Status CBC WITHOUT DIFFERENTIAL 06/13 0600 Active BASIC ELECTROLYTES PLUS BUN&CR 06/13 0600 Active PARTIAL THROMBOPLASTIN TIME 06/12 2100 Active BASIC ELECTROLYTES PLUS BUN&CR 06/12 1600 Complete Heparin Drip- AFIB/FLUTTER/PE/ 06/12 1554 Active PARTIAL THROMBOPLASTIN TIME 06/12 1330 Complete RT OVER-RIDE 06/12 1100 Complete Change service to 06/12 1042 Active THERAPIST ORDERS 06/12 0800 Complete PARTIAL THROMBOPLASTIN TIME 06/12 0500 Complete Telles, Insertion/Removal/Asses 06/12 0147 Active Lab Add-on Test 06/12 UNK Active MISSING MEDICATION FORM 06/12 UNK Active Current Medications Sig/Amadeo Start time Last Medication Dose Stop Time Status Admin Sodium Chloride 1,000 ML Q13H 06/12 1915 AC (Normal Saline 0.9%) Ipratropium Florence 2.5 ML Q4 HRS NEEDED PRN 06/12 1130 AC 06/12 (Atrovent) 2000 Heparin Sodium 25,000 UNIT Q24H 06/12 1115 AC 06/12 (Porcine) 1551 (Heparin) Sodium Chloride 500 ML Albuterol Sulfate 3 ML EVERY 4 HRS/AWAKE 06/12 1999 AC 06/11 (Proventil) 211 Atorvastatin Calcium 40 MG 1700 06/11 1700 AC 06/12 (Lipitor) 1716 Methylprednisolone 40 MG Q12 06/11 1325 AC 06/12 (Solumedrol) 2219 Insulin Detemir 8 UNITS BID 06/11 1000 AC 06/12 (Levemir) 2220 Tiotropium [place] 1 PUF DAILY 06/11 1000 AC 06/12 (Spiriva) 0941 Vancomycin HCl 1,500 MG DAILY 06/11 1000 AC 06/12 Sodium Chloride 500 ML 1109 (Normal Saline 0.9%) Insulin Aspart 0 TIDAC 06/11 0800 AC 06/12 (NovoLOG) 1711 Ceftazidime 1,000 MG Q8H 06/11 0100 AC 06/12 (Fortaz) 1716 Laboratory Tests 06/12/16 2100: APTT Pending 06/12/16 1620: Anion Gap 11, Estimated GFR 54 L, BUN/Creatinine Ratio 15.4 06/12/16 1230: APTT 48 H 06/12/16 0515: Anion Gap 10, Estimated GFR 54 L, BUN/Creatinine Ratio 16.2, Phosphorus 4.4, Magnesium 1.5 L, APTT 103 *H, CBC w Diff NO MAN DIFF REQ, RBC 3.40 L, MCV 86.9 , MCH 27.1, RDW 17.7 H, MPV 8.8, Gran % 91.2 H, Lymphocytes % 8.2 L, Monocytes % 0.5 L, Eosinophils % 0, Basophils % 0.1, Absolute Granulocytes 12.7 H, Absolute Lymphocytes 1.1 L, Absolute Monocytes 0.1 L, Absolute Eosinophils 0, Absolute Basophils 0, PUBS MCHC 31.2 L Departure Departure Disposition: STILL A PATIENT Condition: Stable Clinical Impression Primary Impression: Pneumonia Qualifiers: Pneumonia type: due to unspecified organism Laterality: left Lung location: unspecified part of lung Qualified Code: J18.9 - Pneumonia, unspecified organism Secondary Impressions: Elevated troponin, Hypercapnia Referrals: ELLA GARCIA MD (PCP/Family) Departure Forms: Customer Survey General Discharge Information Observation Note Spoke With: ZACHERY MONTES MD Physician Advisor Notified: MARSHALL ANDREWS DO Place Patient In: ED Observation Rationale for Observation: My rational for observation is as follows [This patient is a 76-year-old male past medical history including CAD, COPD, and pneumonia who presented for evaluation of altered mental status and tachypnea. This patient has likely persistent left lobe pneumonia. Elevated troponin. Hypercapnic. This patient will need observation for cardiology consultation, trend labs, serial troponins, serial EKG, IV antibiotics, follow-up blood cultures, follow-up urine cultures, and close monitoring. Premature discharge could prove medically harmful.]. (FENG BANKS,DAVID) PA/FRONT COUNTER CLERK Co-Sign Statement Statement: ED Attending supervision documentation- [X] I saw and evaluated the patient. I have also reviewed all the pertinent lab results and diagnostic results. I agree with the findings and the plan of care as documented in the PA's/FRONT COUNTER CLERK's documentation. [] I have reviewed the ED Record and agree with the PA's/FRONT COUNTER CLERK's documentation. [] Additions or exceptions (if any) to the PAs/FRONT COUNTER CLERK's note and plan are summarized below: [] I have seen and personally examined the patient. The patient is DNR/DNI. He has been comfort care status. The MOD has spoken with the son who is in agreement with placing the patient in observation and giving a trial with IV antibiotics. (DARRYL CANO,MARSHALL Garcia)
--- NOTE | 2016-06-10 19:34 | NUR ---
NS INFUSING PER EMAR
--- NOTE | 2016-06-10 19:35 | NUR ---
RESPIRATORY CALLED FOR TREATMENT AND ABG
--- NOTE | 2016-06-10 19:38 | NUR ---
LABS DRAWN AND SENT 1ST SET OF CULTURES ALSO DRAWN AT THIS TIME SST,LAV,BLUE AND MCKEON SENT
--- NOTE | 2016-06-10 19:44 | NUR ---
XRAY AT BEDSIDE FOR IMAGING
--- NOTE | 2016-06-10 19:49 | NUR ---
RESPIRATORY AT BEDSIDE FOR TREATMENT
[2016-06-10 19:54] LABS: ABSOLUTE BASOPHIL COUNT 0.1 /CUMM (0.0-0.2); ABSOLUTE EOSINOPHIL COUNT 0.2 /CUMM (0.0-0.7); ABSOLUTE GRANULOCYTE CT 18.3 /CUMM (1.4-6.5); ABSOLUTE LYMPH COUNT 2.1 /CUMM (1.2-3.4); ABSOLUTE MONOCYTE COUNT 1.2 /CUMM (0.10-0.60); BASOPHIL % 0.3 % (0.0-2.0); EOSINOPHIL % 0.8 % (0-5); GRANULOCYTE % 83.8 % (42.2-75.2); HEMATOCRIT 28.6 % (42-52); MEAN CORPUSCULAR HGB 27.6 PG (27.0-31.0); MEAN CORPUSCULAR HGB CONC 31.7 G/DL (33.0-37.0); MEAN PLATELET VOLUME 8.1 FL (7.4-10.4); PLATELET COUNT 341 /CUMM (130-400); RBC DISTRIBUTION WIDTH 16.9 % (11.5-14.5); RED BLOOD CELL CT 3.29 /CUMM (4.70-6.10); WHITE BLOOD CELL COUNT 21.9 /CUMM (4.8-10.8)
--- NOTE | 2016-06-10 20:28 | RADIOLOGY REPORT ---
EXAMINATION: XR PORTABLE CHEST CLINICAL INFORMATION: Altered mental status Rule out pneumonia. COMPARISON: 05/19/2016 TECHNIQUE: Portable AP view of the chest was obtained. FINDINGS: Sternal wires are present anteriorly. Patient is rotated to the left. Cardiomegaly is unchanged. Mitral annular calcifications are again noted. There is persistent opacification of the left lung base which is unchanged from prior. There is mild atelectasis at the right lung base. Pulmonary vasculature appears normal. Degenerative disc disease is present in the thoracic spine. Bones are osteopenic. IMPRESSION: 1. Unchanged predominantly. No pulmonary edema. 2. Persistent opacification of the left lung base which is unchanged from prior and could be due to effusion, pneumonia, and/or atelectasis. 3. Right lower lobe atelectasis.
--- NOTE | 2016-06-10 20:34 | NUR ---
CRITICAL TEST RESULTS [id number] FLORENTINO MARIE 76 M TESTS AND RESULTS: TROPONIN 0.29 Results received and read back by: MADHU FINE Results received date and time: 06/10/162033 The following provider was notified of the results, and read the results back: JACQUELINE TONEY Notified date and time: 06/10/16 at 2032
--- NOTE | 2016-06-10 21:20 | History & Physical ---
HARRIET BARRETT,FRANKLIN 06[birth year]: General Information and HPI MD Statement: I have seen and personally examined FLORENTINO DAVID and documented this H&P. The patient is a 76 year old M who presented with a patient stated chief complaint of [onset mental status and sent to from the facility for further evaluation]. Source of Information: patient History of Present Illness: This is a 76-year-old male, resident of [facility], was sent to ED for lethargy and confusion. He has PMH significant for T2DM, CAD s/p CABG, COPD on 2L, systolic CHF, CVA, JUANITO on CPAP, CKD stage 3, HTN, multiple hospital and ICU admissions for CHF and COPD execerabtion (June 2015, Feb and Mar 2016 and the last one being in April 2016 for with similar presentation). According to [facility]report from [facility], patient was found to be more drowsy and lethargic, . When the patient was evaluated at bedside he was difficult to arouse but was able to answer questions and follow commands slowly. He had no specific complaints but again he was not able to provide much history. After speaking with the nurses at the [facility] the patient has been feeling slightly drowsy but has not been complaining of any chest pain, cough congestion or any palpitations. Allergies/Medications Allergies: Coded Allergies: NO KNOWN ALLERGIES (04/17/15) Home Med list Acetaminophen (Acephen) 650 MG SUPP.RECT 1 SUP ND Q4H PRN PAIN/TEMP>100 ( Reported) Acetaminophen (Pain & Fever) 325 MG TABLET 2 TAB PO Q4H PRN PAIN/TEMP>/100 ( Reported) Albuterol Sulfate 2.5 MG/3 ML (0.083 %) VIAL.NEB 1 Vial INH/STEPHANE Q4P PRN SOB ( Reported) Amino Acids/Protein Hydrolys (Pro-Stat Sugar Free Liquid) (Unknown Strength) LIQUID 30 ML PO DAILY SUPPLEMENT (Reported) Bisacodyl 10 MG SUPP.RECT 1 SUP RC PRN CONSTIPATION (Reported) Budesonide 0.5 MG/2 ML AMPUL.NEB 1 Vial INH/STEPHANE BID BREATHING PROBLEMS ( Reported) Carvedilol (Coreg) 3.125 MG TABLET 1 TAB PO BID HEART/BP (Reported) Cholecalciferol (Vitamin D3) 1,000 UNIT TABLET 1,000 IU PO DAILY low vit d Escitalopram Oxalate 10 MG TABLET 1 TAB PO DAILY MENTAL HEALTH (Reported) Fluticasone/Salmeterol (Advair 250-50 Diskus) 250 MCG-50 MCG/DOSE BLST.W.DEV 1 PUF INH BID COPD (Reported) Furosemide 20 MG TABLET 1 TAB PO Q48 WATER PILL (Reported) Glipizide 5 MG TABLET 1 TAB PO DAILY DM (Reported) Insulin Detemir (Levemir) 100 UNIT/ML VIAL 10 UNITS SC BID diabetes please continue levemir for the next 6 days and stop on april 22, 2016 Insulin Lispro (Humalog) 100 UNIT/ML VIAL DM (Reported) 151-200 2 U 201-250 4 U 251-300 6 U 301-350 8 U 351-400 10 U >400 or < 60 call Ipratropium/Albuterol Sulfate (Iprat-Albut 0.5-3(2.5) MG/3 Ml) 3 ML AMPUL.NEB 1 AMP INH 4 TIMES/DAY COPD (Reported) Magnesium Oxide (Magnesium) 400 MG CAPSULE 1 CAP PO DAILY Low Mag Na Phos,M-B/Na Phos,Di-Ba (Fleet Enema) 19 GRAM-7 GRAM/118 ML ENEMA 1 E RC DAILY PRN CONSTIPATION (Reported) Pantoprazole Sodium (Protonix) 40 MG TABLET.DR 1 TAB PO DAILY DUODENAL ULCER Polyethylene Glycol 3350 (Miralax) 17 GRAM POWD.PACK 1 PAC PO DAILY CONSTIPATION dissolve in water Rosuvastatin Calcium (Crestor) 10 MG TABLET 1 TAB PO QPM CHOLESTEROL ( Reported) Sennosides (Senna) 8.6 MG TABLET 1 TAB PO 1600 CONSTIPATION (Reported) Tiotropium [place] (Spiriva) 18 MCG CAP.W.DEV 1 CAP INH DAILY BREATHING PROBLEMS (Reported) Past History Travel History Traveled to [place] past 21 day No Medical History Neurological: TIA, essential tremor EENT: NONE Cardiovascular: CAD, hypertension, hyperlipidemia, myocardial infarction, systolic CHF Respiratory: COPD, obstructive sleep apnea, pneumonia Gastrointestinal: NONE Hepatic: NONE Renal: chronic kidney disease Musculoskeletal: NONE Psychiatric: NONE Endocrine: diabetes, obesity Blood Disorders: anemia Cancer(s): NONE BAND LEADER/Reproductive: NONE History of MRSA: No History of VRE: No History of CDIFF: No Influenza Vaccine: 12/22/15 Surgical History Surgical History: CABG (x 3- 2010 @ [facility]), back surgery surgeries in bilateral shoulders right knee surgery Past Family/Social History Family History Relations & Conditions if any FATHER, ; Cause: MVA (motor vehicle accident). FH: diabetes mellitus MOTHER FH: breast cancer SISTER, ; Cause: Motor vehicle accident. BROTHER, ; Cause: Cancer. FH: cancer Psychosocial History Who Do You Live With? child Services at Home: [facility] Primary Language: Maltese Smoking Status: Former Smoker ETOH Use: denies use Illicit Drug Use: denies illicit drug use Living Will? yes Power of Drug Safety Assistant/HCP? yes Name of POA/HCP: Pt's son Alejo David [phone] Functional Ability ADLs Independent: eating. Unknown: dressing, toileting, bathing. Ambulation: non-ambulatory IADLs Independent: telephone. Unknown: shopping, housework, finances, food prep, transportation, medication admin. Review of Systems Review of Systems Constitutional: Reports: see HPI. Exam & Diagnostic Data Last 24 Hrs of Vital Signs/I&O Vital Signs Date Time Temp Pulse Resp B/P B/P Pulse O2 O2 Flow FiO2 Mean Ox Delivery Rate 06/11 2123 96 Nasal 3.0L Cannula 06/11 2003 98 Nasal 3.5L Cannula 06/108 98.8 140 22 101/53 99 Nasal 3.0L Cannula Physical Exam General Appearance Oriented X3, Moderate Distress Skin No Rashes, No Breakdown Skin Temp/Moisture Exam: Cool/Dry HEENT dry mucous membranes Neck No JVD Lymphatic Axillary nl, Cervical nl Cardiovascular Regular Rate, Normal S1, Normal S2 Lungs bilateral decreased airway entry, bilateral basal congestion and rhonchi Abdomen Tender to touch Neurological Normal Gait, Normal Speech, Strength at 5/5 X4 Ext Extremities No Cyanosis, No Edema Diagnostic Data EKG Results Wide-complex tachycardia with aberrancy CXR Results 1. Unchanged predominantly. No pulmonary edema. 2. Persistent opacification of the left lung base which is unchanged from prior and could be due to effusion, pneumonia, and/or atelectasis. 3. Right lower lobe atelectasis. Assessment/Plan Assessment: This is a 76-year-old male extensive past medical history as mentioned above who presented to the [facility] from his weight after being altered mental status and confused for the last 1 -2 hours. The patient corrected and after speaking to the facility reported no sick contacts or any acute changes in the patient's residential Vitals at the time of admission shows Temperature 98.8, pulse rate of 140, respiration rate are 22, blood pressure 101 /53, pulse ox of 99% on 3 L WBC of 21.9 with bands of 6, hemoglobin of 9.9, hematocrit 28.6, the platelet count of 381, Chemistry shows 1.5 of creatinine, BUNs of 16, potassium 3.3, Chest x-ray 1. Unchanged predominantly. No pulmonary edema. 2. Persistent opacification of the left lung base which is unchanged from prior and could be due to effusion, pneumonia, and/or atelectasis. 3. Right lower lobe atelectasis. Assessment 1. Altered mental status: The cause for the altered mental status can be multifactorial likely secondary to worsening hypercarbia versus acute pulmonary embolism. Given the patient's tachycardia and elevated d-dimer the suspicion for pulmonary embolism remains high, Underlying evolving and worsening pneumonia can also be the trigger for this altered mental status and this is supported by the fact that patient has elevated WBCs and elevated bands 2. Leukocytosis with might be reactive or the possibility of healthcare acquired pneumonia but cannot completely rely on the cxr fidings as his previous PNA will not get resolved on imaging until 4-6 weeks 3. History of CHF 4. Elevated troponins with wide complex tachycardia with abberancy on EKG and hypotension. 5. History of diabetes mellitus 6.History of obstructive sleep apnea on nocturnal BiPAP Plan Admit the patient to telemetry floor for continuous telemetry monitoring Serial troponins and EKG onto the troponins peak Cardiology consult in the morning(dr Orly Vega counter control operator as per the schedule). Broad-spectrum antibiotics with vancomycin and ceftazidime Further imaging with CAT scan without IV contrast to look for worsening pneumonia or any pleural effusion But due to persistent tachycardia and increased d-dimer is suspicion of an embolism is elevated and we will start the patient on IV heparin. Would consider doingr or V/Q scan in am. Given that the patient's elevated creatinine and chronic kidney disease stage III CTA is contraindicated to this point, Persistent tachycardia and avoid the AV emanuel medications(including the Carvedilol which is patient home meds) Patient is DNR/DNI As per the notes from the [facility] and the patient's recent living will that the signed on May the patient clearly 6 signed for comfort measures only /DNR/DNI/do not hospitalize/no IV fluids/no IV antibiotics. This was then confirmed with the patient's power of attorney lawyer Mr. Alejo Acosta, the patient's son he confirmed that. An extensive discussion and goals of care were discussed with the patient's son Mr. Alejo Acosta myself, and the night attending Dr. Almeida and the family is realistic and are aware of the poor prognosis but still wants us to admit and observe him for 23 hours if he turns around and his clinical status improves with IV fluids, IV antibiotics. When the discussion regarding the suspicion of pulmonary embolism and starting the patient on heparin and ultimately Coumadin the patient's family were hesitant for long-term antiplatelet admission therapy but in acute circumstances they were comfortable in resuming IV heparin. As Ranked By This Provider Problem List: 1. Sepsis 2. Chronic respiratory failure with hypoxia and hypercapnia 3. Chronic kidney disease 4. Chronic anemia Core Measures/Miscellaneous Acute Coronary Syndrome ACS Diagnosis: No Cerebrovascular Accident CVA/TIA Diagnosis: No Congestive Heart Failure CHF Diagnosis: No Venous Thromboembolism VTE Risk Factors: Acute medical illness, Age > 40 No [facility] VTE prophylaxis d/t: No contraindications No VTE Pharm Prophylaxis d/t: No contraindications VTE Diagnosis: No VTE Type: NONE VTE Confirmed by (Test): NONE Severe Sepsis Severe Sepsis Present: No BC x2: Yes Lactic Acid x2: Yes IV ABX Broad Spectrum: Yes Septic Shock Septic Shock Present: No Miscellaneous Documentation Attending Case Discussed With: ZACHERY ALMEIDA MD Primary Care Physician: ELLA GARCIA MD Patient sees these Specialists None Level of Patient Care: Telemetry ZACHERY ALMEIDA 06/11/16 0242: Attending Review Statement Attending Statement Attending MD Statement: examined this patient, discuss w/resident/PA/PRODUCT MARKETING EXECUTIVE, agreed w/resident/PA/PRODUCT MARKETING EXECUTIVE, discussed with family, reviewed EMR data (avail), reviewed images, amended to note Attending Assessment/Plan: CC: AMS PMH: DM, CAD S/P CABG, COPD on 2 L O2 by NC, at at bedtime, CVA, JUANITO on nighttime CPAP, CK-MB, HTN History obtain from charts, patient is unable to provide any details. patient was brought in by EMS from [facility] for evaluation of altered mental status, tachypnea, and rhonchi. According to staff at [facility] stated that the patient's BP was low, breathing heavily over the last hours. Patient response to instructions, lethargic but denies any pain. no Hx of fevers, chills , chest pain, abdominal pain, nausea, vomiting, back pain, or any urinary symptoms. When family was called, they informed that [facility] told them that they were worried about pneumonia. Vitals: Tmax 99.7, HR 140s, RR 22, BP 101/53, saturating 98% on 3 L. On exam: Lethargic but arousable O 2, cooperative, respiratory distress, neck supple, JVD: Unable to evaluate because of neck structures, no lymphadenopathy, mucosa dry, PERRL, strength grossly intact, no dependent edema, no obvious skin rashes or inflammation CVS: S1-S2, tachy. RS: decreased bilaterally bases, ronchi+, labored breathing. Abdomen: obese,Soft, NT, ND, bowel sounds present. Labs: WBC 21.9, neutrophils 83%, bands 6, sodium 139, potassium 3.3, chloride 95 , bicarbonate 35, creatinine 1.5, glucose 156, calcium 7.8, troponin 0.29, proBNP 6790, Augmentin 2.5, d-dimer 3641, AB.36/60/89/34 on 3.5 L. UA unremarkable CXR: 1. Unchanged predominantly. No pulmonary edema. 2. Persistent opacification of the left lung base which is unchanged from prior and could be due to effusion, pneumonia, and/or atelectasis. 3. Right lower lobe atelectasis. EKG : ?Regular wide complex : ?sinus vs svt with aberrancy A and P Recurrent multiple admissions with similar reasons with hypercapnic respiratory failure. Patient was brought in for altered mental status, blood pressure lower side, significant leukocytosis with band, x-ray shows persistent infiltrates. ABG has chronic hypercapnia. Patient's d-dimer is significantly elevated, creatinine at his baseline, and chronically elevated proBNP. Patient's troponin is significantly elevated as well. Along with healthcare associated pneumonia, NSTEMI Vs demand ischemia this is a possibility of PE given elevated d-dimer's, tachycardia, labored breathing. Creatinine is elevated, would be difficult to get CTA. # Metabolic encephalopathy # Chronic hypercapnic respiratory failure secondary to COPD, obstructive sleep apnea # Suspected healthcare associated pneumonia # Elevated troponin : NSTEMI # Rule out pulmonary embolism # Chronic kidney disease # Wide complex Tachycardia # Insulin-dependent diabetes # History of hypertension: Currently blood pressure in lower normal range Patient has multiple comorbidities and critical condition. He also has a living will mentioning DNR DNI no IV fluids. Because his encephalopathy, his son was contacted about decision making, who suggested continued to be DNR, DNI, no shock. He wants trial of IV fluids, IV antibiotics, basic supportive care for the next 24 hours, and reevaluate. We also discussed possibility of NSTEMI, PE and cardiac condition, the temporarily want to continue heparin drip. The precisely mentioned no ICU admission. - Place in observation to telemetry floor - Continuous cardiac monitoring - Close vital monitoring - Continue IV fluids normal saline at 100-150 mL per hour, bolus if blood pressure drops - Trend lactate, troponin - Heparin drip - Serial EKGs - IV vancomycin and ceftazidime - Continue nighttime BiPAP for comfort - ABG if the saturating, or 6 AM - CT chest without contrast to further evaluate persistent versus new infiltrates - Sliding scale insulin - replace K and Mg - Consult cardiology to inform about suspected wide complex tachycardia and further opinion - TRC nebs albuterol and Atrovent scheduled and when necessary - Consider VQ scan in a.m., according to family's decision and goal of care. - Hold Coreg, Lasix for hypotension, hold glipizide - Aspirin 81 mg, continue statin - TTS 30 min
--- NOTE | 2016-06-10 21:24 | NUR ---
PT MEDICATED WITH 1,500G UNASYN AND NS INFUSING PER EMAR
--- NOTE | 2016-06-10 21:31 | NUR ---
HOUSE STAFF AT BEDSIDE FOR PT EVALUATION
[2016-06-10] MEDS ORDERED: COREG3.125 MG PO (21:45)
[2016-06-10] MEDS ORDERED: ACEPHEN650 M1 PR (21:45)
[2016-06-10] MEDS ORDERED: BISACODYL10 M1 RC (21:46)
[2016-06-10] MEDS ORDERED: FLEET ENEMA133 ML RC (21:46)
[2016-06-10] MEDS ORDERED: ALBUTEROL2.5 MG/3 M INH/SOL (21:47)
[2016-06-10] MEDS ORDERED: PAIN & FEVER325 M1 PO (21:47)
[2016-06-10] MEDS ORDERED: HUMALOG100 UNIT/2 SC (21:48)
[2016-06-10] MEDS ORDERED: [UNRECOGNIZED DRUG - OTHER] PO (21:50)
--- NOTE | 2016-06-10 22:21 | NUR ---
SALAZAR CATHETER PLACED, 100ML OUTPUT OF CLEAR YELLOW URINE. URINE TRIO OBTAINED AND SENT TO LAB
--- NOTE | 2016-06-10 22:41 | NUR ---
BED ASSIGNED 171-1
--- NOTE | 2016-06-10 22:49 | NUR ---
REPORT GIVEN TO OLGA LIDIA MCKOY
--- NOTE | 2016-06-10 23:46 | Event Note ---
Event Note Event Note: As per the notes from the [facility] and the patient's recent living will that the signed on May the patient clearly 6 signed for comfort measures only /DNR/DNI/do not hospitalize/no IV fluids/no IV antibiotics. This was then confirmed with the patient's power of bankruptcy attorney Mr. Alejo Acosta, the patient's son .([phone]) An extensive discussion REGARDING goals of care were discussed with the patient' s son Mr. Alejo Acosta myself, and the night attending Dr. Almeida and the family is realistic and are aware of the poor prognosis but still wants us to admit and observe him for 23 hours if he turns around and his clinical status improves with IV fluids, IV antibiotics. When the discussion regarding the suspicion of pulmonary embolism and starting the patient on heparin and ultimately Coumadin the patient's family were hesitant for long-term antiplatelet admission therapy but in acute circumstances they were comfortable in resuming IV heparin. They clearly mentioned no aggressive measuress and no ICU level of care.
[2016-06-11 00:06] VITALS: BP 94/54
[2016-06-11 01:59] VITALS: BP 98/60
[2016-06-11 07:50] VITALS: BP 98/54
[2016-06-11 08:19] LABS: ABSOLUTE BASOPHIL COUNT 0 /CUMM (0.0-0.2); ABSOLUTE EOSINOPHIL COUNT 0.2 /CUMM (0.0-0.7); ABSOLUTE GRANULOCYTE CT 12.4 /CUMM (1.4-6.5); ABSOLUTE LYMPH COUNT 2.2 /CUMM (1.2-3.4); ABSOLUTE MONOCYTE COUNT 1.2 /CUMM (0.10-0.60); BASOPHIL % 0.3 % (0.0-2.0); EOSINOPHIL % 1.2 % (0-5); GRANULOCYTE % 77.4 % (42.2-75.2); HEMATOCRIT 29.4 % (42-52); MEAN CORPUSCULAR HGB 27.3 PG (27.0-31.0); MEAN CORPUSCULAR HGB CONC 31.5 G/DL (33.0-37.0); MEAN CORPUSCULAR VOLUME 86.6 FL (80.0-94.0); MEAN PLATELET VOLUME 8.3 FL (7.4-10.4); PLATELET COUNT 333 /CUMM (130-400); RBC DISTRIBUTION WIDTH 16.9 % (11.5-14.5); RED BLOOD CELL CT 3.39 /CUMM (4.70-6.10); WHITE BLOOD CELL COUNT 16.1 /CUMM (4.8-10.8)
[2016-06-11 08:26] LABS: PTT 50 SEC (25-37)
--- NOTE | 2016-06-11 08:38 | PN- Housestaff ---
BECCAMUKULRADHA Grimes 06/11/16 0838: Subjective Follow-up For: Lethargy/AMS SIRS criteria Tachycardia Elevated trop Hypokalemia Complaints: mild difficulty breathing Subjective: Interval history: This morning Mr. David denies being in any acute distress. He declines to have the BiPAP removed at this time as he reports noticeable ease with breathing while on it. He denies any headache, chest pain, nausea, abdominal pain, fevers or chills. I had a chance to speak with the patient's son who should be here the next hour and a half. Review of Systems Constitutional: Reports: see HPI. EENTM: Reports: see HPI. Cardiovascular: Reports: see HPI. Respiratory: Reports: see HPI. Gastrointestinal: Reports: no symptoms. Musculoskeletal: Reports: no symptoms. Objective Last 24 Hrs of Vital Signs/I&O Vital Signs Date Time Temp Pulse Resp B/P B/P Pulse O2 O2 Flow FiO2 Mean Ox Delivery Rate 06/11 0800 93 BIPAP 3.0L 06/11 0750 98.6 135 22 98/54 92 CPAP 06/11 0543 135 91 06/11 0300 133 93 06/11 0159 99.1 132 24 98/60 90 BIPAP 3.0L 06/11 0006 99.7 134 24 94/54 94 BIPAP 3.0L 06/11 0002 134 94 06/11 0000 93 BIPAP 3.0L 06/10 2358 95 Nasal 2.5L Cannula 06/10 2124 96 Nasal 3.0L Cannula 06/10 2004 98 Nasal 3.5L Cannula 06/10 1858 98.8 140 22 101/53 99 Nasal 3.0L Cannula Intake & Output 06/11 1600 06/11 0800 06/11 0000 Intake Total 1260 2100 Output Total 400 Balance 860 2100 Intake, IV 1260 2100 Intake, Oral 0 Output, Urine 400 Patient 224 lb Weight Weight Carolina Lift Measurement Method Physical Exam General Appearance: Cooperative, No Acute Distress, easily arousable to verbal commands Skin: No Breakdown Cardiovascular: Regular Rate, Normal S1, Normal S2, rapid heart rate Lungs: Normal Air Movement, diminished breath sounds in the basilar regions. Transmitted sounds from BiPAP at this time Abdomen: Normal Bowel Sounds, Soft, No Tenderness Neurological: Normal Tone, no evidence of focal neurologic deficits Extremities: Normal Pulses, 1+ pitting edema bilateral lower extremities Vascular: Pulses Symmetrical Current Medications: Current Medications Sig/Amadeo Start time Last Medication Dose Route Stop Time Status Admin Albuterol Sulfate 3 ML Q4P PRN 06/10 2300 AC INH Albuterol Sulfate 3 ML ONCE ONE 06/10 1900 DC 06/10 INH 06/10 190 1940 Ampicillin Sodium/ 0 .STK-MED ONE 06/10 2121 DC Sulbactam Sodium .ROUTE Ampicillin Sodium/ 1,500 MG ONCE ONE 06/10 2100 DC 06/10 Sulbactam Sodium IV 06/10 Sodium Chloride 100 ML Atorvastatin Calcium 40 MG 1700 06/11 1700 AC PO Carvedilol 3.125 MG BID 06/11 1000 CAN PO Ceftazidime 1,000 MG Q8H 06/11 0100 AC 06/11 IV 0845 Furosemide 20 MG Q48 06/12 1000 CAN PO Heparin Sodium 25,000 UNIT Q24H 06/11 0045 AC 06/11 (Porcine) IV 0100 Sodium Chloride 500 ML Insulin Aspart 0 TIDAC 06/11 0800 AC SC Insulin Detemir 8 UNITS BID 06/11 1000 AC SC Insulin Detemir 4 UNITS ONCE ONE 06/11 0915 UNVr SC 06/11 0916 Ipratropium [place] 2.5 ML ONCE ONE 06/10 2300 DC INH 06/10 2301 Ipratropium [place] 2.5 ML ONCE ONE 06/10 1900 DC 06/10 INH 06/10 190 1940 Potassium Chloride 20 MEQ Q13H 06/10 2315 AC 06/10 Sodium Chloride 1,000 ML IV 2344 Potassium Chloride 20 MEQ ONCE ONE 06/10 2315 DC PO 06/10 2316 Sodium Chloride 500 ML BOLUS ONE 06/11 0030 DC 06/11 IV 06/11 0129 0058 Sodium Chloride 1,000 ML BOLUS ONE 06/10 2100 DC 06/10 IV 06/10 Sodium Chloride 1,000 ML BOLUS ONE 06/10 1900 DC 06/10 IV 06/10 1958 1933 Tiotropium [place] 1 PUF DAILY 06/11 1000 AC INH Vancomycin HCl 1,500 MG DAILY 06/11 1000 AC Sodium Chloride 500 ML IV Last 24 Hrs of Lab/Sumanth Results Last 24 Hrs of Labs/Mics: Laboratory Tests 06/11/16 0705: Anion Gap 8, Estimated GFR 49 L, BUN/Creatinine Ratio 11.4, Phosphorus Pending, Magnesium Pending, Troponin I 0.48 *H, APTT 50 H, CBC w Diff NO MAN DIFF REQ, RBC 3.39 L, MCV 86.6, MCH 27.3, RDW 16.9 H, MPV 8.3, Gran % 77.4 H, Lymphocytes % 13.9 L, Monocytes % 7.2, Eosinophils % 1.2, Basophils % 0.3, Absolute Granulocytes 12.4 H, Absolute Lymphocytes 2.2, Absolute Monocytes 1.2 H, Absolute Eosinophils 0.2, Absolute Basophils 0, PUBS MCHC 31.5 L 06/11/16 0010: Troponin I 0.45 *H 06/10/162218: Urinalysis LIGHT H, Urine Color YEL, Urine Clarity CLEAR, Urine pH 6.0, Ur Specific [place] 1.015, Urine Protein TRACE H, Urine Ketones NEG, Urine Nitrite NEG, Urine Bilirubin NEG, Urine Urobilinogen 0.2, Ur Leukocyte Esterase NEG, Ur Microscopic SEDIMENT EXAMINED, Urine RBC RARE, Ur Epithelial Cells RARE, Urine Hemoglobin NEG, Urine Glucose NEG 06/10/162158: Lactic Acid Cancelled 06/10/161953: pH 7.36, pCO2 60 *H, pO2 89, HCO3 34 H, ABG O2 Sat (Measured) 96.0, Carboxyhemoglobin 0.4 L, O2 Concentration % 3.5L, O2 Delivery Method NC, Phlebotomy Draw Site LEFT RADIAL 06/10/161937: Anion Gap 8, Estimated GFR 46 L, BUN/Creatinine Ratio 10.7, Glucose 156 H, Lactic Acid 1.9, Calcium 7.8 L, Total Bilirubin 0.4, AST 13 L, ALT 32, Alkaline Phosphatase 94, Troponin I 0.29 *H, Iir-S-Ftpqimfguzm Pept 6790 H, Total Protein 5.3 L, Albumin 2.5 L, Globulin 2.8, Albumin/Globulin Ratio 0.9 L, D-Dimer 3641 H, CBC w Diff MAN DIFF ORDERED, RBC 3.29 L, MCV 87.0, MCH 27.6 , RDW 16.9 H, MPV 8.1, Gran % 83.8 H, Lymphocytes % 9.8 L, Monocytes % 5.3, Eosinophils % 0.8, Basophils % 0.3, Absolute Granulocytes 18.3 H, Segmented Neutrophils 77 H, Band Neutrophils 6 H, Absolute Lymphocytes 2.1, Lymphocytes 10 L, Monocytes 5, Absolute Monocytes 1.2 H, Eosinophils 1, Absolute Eosinophils 0.2, Basophils 1, Absolute Basophils 0.1, Platelet Estimate ADEQUATE , Polychromasia 1+, Hypochromic-Microcytic 2+, Basophilic Stippling 1+, Anisocytosis 1+, PUBS MCHC 31.7 L Microbiology 06/10 2218 URINE ROUT: Urine Culture - RECD 06/10 2132 URINE ROUT: Urine Culture - COLB 06/10 1937 BLOOD: Blood Culture - WKST 06/10 1858 BLOOD: Blood Culture - CAN Cancelled: NO SECOND BLOOD CULTURE COLLECTED. Assessment/Plan Assessment: 76-year-old gentleman who resides at [place] brought in for lethargy and confusion. PMH type 2 diabetes, CAD S/P CABG, COPD on 2 LNC, HFrEF of 50% on , stage I diastolic dysfunction, RVSP 42mmHg, CVA, or say on nocturnal CPAP, stage III VKD, HTN, recent admissions for CHF/COPD exacerbation in June 2015, March 2016. VS on admission: BP 1 02/24/1951, HR 140, RR 22, SPO2 99% on 3L NC, T 98.9 Pertinent labs on admission: WBC 21.9, 6% bandemia, H&H 9.1/28.6, d-dimer 3641, potassium 3.3, BUN/CR 16/1.5 Serial troponins: 0.29, 0.45, 0.48 AB.36/60/89/34/96% on 3.5 L NC Problem list: 1. Elevated troponins: Likely type II 2. SIRS criteria 3. Persistent tachycardia 4. Hypokalemia 5. Elevated d-dimer 6. Lethargy/AMS 7. Diabetes 8. JUANITO on CPAP Plan: 1. Elevated troponins: Likely type II * No evidence of ST-T elevations on serial EKGs * Possibly secondary to demand ischemia in setting of persistent tachycardia and possible underlying ammonia * Continue heparin drip for now and if troponins stabilized we'll discuss with cardiology the need for continued heparin drip * Repeat EKG/troponin at 1 PM * Follow-up with cardio 2. SIRS criteria * Interval improvement in leukocytosis. We'll continue with vancomycin and ceftaz * Mild hypotension may be secondary to increased intrathoracic pressure in the setting of CPAP 3. Persistent tachycardia * Tachycardia may be secondary to knee versus underlying pneumonia. At this time patient would not be able to tolerate going down to the CT. We'll discuss with cardiology for possible trial of Cardizem versus beta benigno. Concern for duration of action of beta benigno and potential to worsen the hypotension * Will obtain lower extremity Doppler ultrasound * Repleting potassium 4 goal greater than 4.0 4. Hypokalemia * Follow-up repeat potassium at 6 PM * Currently on normal saline with 20 mEq KCl 5. Elevated d-dimer * Unable to obtain CTA due to renal insufficiency and patient will not be able to tolerate laying flat the CAT scan this point * Follow-up lower extremity Doppler ultrasound 6. Lethargy/AMS * Will monitor for improvement while on CPAP * Continue with Accu-Chek 7. Diabetes * We'll give half his Levemir dose this morning in the setting of no PO intake. Continue with maintenance fluids and Accu-Cheks 8. JUANITO on CPAP * We'll continue CPAP and assess for respiratory improvement later in the morning * Pulmonology recommendations pending * Continuing vancomycin and ceftaz for possible HCAP * Continue CPAP as tolerated Problem List: 1. Elevated troponin 2. SIRS (systemic inflammatory response syndrome) 3. Tachycardia 4. Hypokalemia 5. Elevated d-dimer 6. Diabetes mellitus Pain Ratin Pain Location: NA Pain Goal: Pain 4 or less Pain Plan: Pain pathway Tomorrow's Labs & Rationales: CBC BEP DVT/Prophylaxis: pharmacological Consulting Request: Consulting Specialty: Cardiology KO BARRETT,[facility] 06/11/16 1146: Attending MD Review Statement Attending Statement Attending MD Statement: examined this patient, discuss w/resident/PA/INDUSTRIAL INSULATOR, agreed w/resident/PA/INDUSTRIAL INSULATOR, discussed with family, reviewed EMR data (avail), discussed with nursing, discussed with case mgmt, reviewed images, amended to note Attending Assessment/Plan: Patient currently on BiPAP. Alert , awake , responding to verbal stimuli. Currently stable. We will continue IV antibiotics for now. Appreciate cardiology input. CAT scan was held because of patient was on BiPAP. Start beta benigno once the blood pressure can tolerate.
--- NOTE | 2016-06-11 10:15 | Cons- Cardiology ---
General Information and HPI Consulting Request Date of Consult: 06/11/16 Requested By: ZACHERY MONTES MD Reason for Consult: Elevated troponin isoenzyme, altered mental status Source of Information: old records Exam Limitations: unable to give history History of Present Illness: The patient is a 76-year-old gentleman with a past medical history of 80s mellitus, coronary artery disease (status post bypass surgery), COPD on home oxygen, chronic congestive heart failure secondary to systolic dysfunction, prior CVA, chronic kidney disease, hypertension and COPD. He presented to our hospital after being found with an lethargy at his extended care facility. The history of the present illness is limited due to the patient's inability to adequately recall events. He was found with increasing lethargy by the nursing staff: However, had no concrete complaints. There were no complaints of chest pains, palpitations nor dyspnea as noted. Of note, as per the patient's living Will as well as notes from his power of assistant county attorney, the patient's level of care should be limited and requests for no hospitalization and no aggressive care including intubation and IV fluids were clearly made. A discussion with the patient's son guarding his acute illness was made however, and he agreed to the current level of care. Has been no report of cough, fevers or chills. On arrival, the patient was noted to be tachycardic as well as have an elevated d-dimer. Troponin isoenzymes were subsequently found to be mildly positive, and the suspicion for a possible pulmonary embolism given. The patient was as well started on antibiotics given his presenting leukocytosis and positive sirs criteria Allergies/Medications Allergies: Coded Allergies: NO KNOWN ALLERGIES (04/17/15) Home Med List: Acetaminophen (Acephen) 650 MG SUPP.RECT 1 SUP OR Q4H PRN PAIN/TEMP>100 ( Reported) Acetaminophen (Pain & Fever) 325 MG TABLET 2 TAB PO Q4H PRN PAIN/TEMP>/100 ( Reported) Albuterol Sulfate 2.5 MG/3 ML (0.083 %) VIAL.NEB 1 Vial INH/STEPHANE Q4P PRN SOB ( Reported) Amino Acids/Protein Hydrolys (Pro-Stat Sugar Free Liquid) (Unknown Strength) LIQUID 30 ML PO DAILY SUPPLEMENT (Reported) Bisacodyl 10 MG SUPP.RECT 1 SUP RC PRN CONSTIPATION (Reported) Budesonide 0.5 MG/2 ML AMPUL.NEB 1 Vial INH/STEPHANE BID BREATHING PROBLEMS ( Reported) Carvedilol (Coreg) 3.125 MG TABLET 1 TAB PO BID HEART/BP (Reported) Cholecalciferol (Vitamin D3) 1,000 UNIT TABLET 1,000 IU PO DAILY low vit d Escitalopram Oxalate 10 MG TABLET 1 TAB PO DAILY MENTAL HEALTH (Reported) Fluticasone/Salmeterol (Advair 250-50 Diskus) 250 MCG-50 MCG/DOSE BLST.W.DEV 1 PUF INH BID COPD (Reported) Furosemide 20 MG TABLET 1 TAB PO Q48 WATER PILL (Reported) Glipizide 5 MG TABLET 1 TAB PO DAILY DM (Reported) Insulin Detemir (Levemir) 100 UNIT/ML VIAL 10 UNITS SC BID diabetes please continue levemir for the next 6 days and stop on april 22, 2016 Insulin Lispro (Humalog) 100 UNIT/ML VIAL DM (Reported) 151-200 2 U 201-250 4 U 251-300 6 U 301-350 8 U 351-400 10 U >400 or < 60 call Ipratropium/Albuterol Sulfate (Iprat-Albut 0.5-3(2.5) MG/3 Ml) 3 ML AMPUL.NEB 1 AMP INH 4 TIMES/DAY COPD (Reported) Magnesium Oxide (Magnesium) 400 MG CAPSULE 1 CAP PO DAILY Low Mag Na Phos,M-B/Na Phos,Di-Ba (Fleet Enema) 19 GRAM-7 GRAM/118 ML ENEMA 1 E RC DAILY PRN CONSTIPATION (Reported) Pantoprazole Sodium (Protonix) 40 MG TABLET.DR 1 TAB PO DAILY DUODENAL ULCER Polyethylene Glycol 3350 (Miralax) 17 GRAM POWD.PACK 1 PAC PO DAILY CONSTIPATION dissolve in water Rosuvastatin Calcium (Crestor) 10 MG TABLET 1 TAB PO QPM CHOLESTEROL ( Reported) Sennosides (Senna) 8.6 MG TABLET 1 TAB PO 1600 CONSTIPATION (Reported) Tiotropium Pitcher (Spiriva) 18 MCG CAP.W.DEV 1 CAP INH DAILY BREATHING PROBLEMS (Reported) Current Medications: Current Medications Sig/Amadeo Start time Last Medication Dose Route Stop Time Status Admin Albuterol Sulfate 3 ML Q4P PRN 06/10 2300 AC INH Albuterol Sulfate 3 ML ONCE ONE 06/10 1899 DC 06/10 INH 06/10 1900 1940 Ampicillin Sodium/ 0 .STK-MED ONE 06/10 2121 DC Sulbactam Sodium .ROUTE Ampicillin Sodium/ 1,500 MG ONCE ONE 06/10 2100 DC 06/10 Sulbactam Sodium IV 06/10 Sodium Chloride 100 ML Atorvastatin Calcium 40 MG 1700 06/11 1700 AC PO Carvedilol 3.125 MG BID 06/11 1000 CAN PO Ceftazidime 1,000 MG Q8H 06/11 0100 AC 06/11 IV 0845 Furosemide 20 MG Q48 06/12 1000 CAN PO Heparin Sodium 3,048 UNIT 0900 06/11 0900 DC (Porcine) IV 06/11 0901 Heparin Sodium 25,000 UNIT Q24H 06/11 0045 AC 06/11 (Porcine) IV 0100 Sodium Chloride 500 ML Insulin Aspart 0 TIDAC 06/11 0800 AC SC Insulin Detemir 8 UNITS BID 06/11 1000 AC SC Insulin Detemir 4 UNITS ONCE ONE 06/11 0915 DC 06/11 SC 06/11 0916 0907 Ipratropium [place] 2.5 ML ONCE ONE 06/10 2300 DC INH 06/10 2301 Ipratropium [place] 2.5 ML ONCE ONE 06/10 1900 DC 06/10 INH 06/10 1901 1940 Potassium Chloride 20 MEQ Q13H 06/10 2315 AC 06/10 Sodium Chloride 1,000 ML IV 2344 Potassium Chloride 20 MEQ ONCE ONE 06/10 2315 DC PO 06/10 2316 Sodium Chloride 500 ML BOLUS ONE 06/11 0030 DC 06/11 IV 06/11 0129 0058 Sodium Chloride 1,000 ML BOLUS ONE 06/10 2100 DC 06/10 IV 06/10 Sodium Chloride 1,000 ML BOLUS ONE 06/10 1900 DC 06/10 IV 06/10 1958 1933 Tiotropium [place] 1 PUF DAILY 06/11 1000 AC INH Vancomycin HCl 1,500 MG DAILY 06/11 1000 AC Sodium Chloride 500 ML IV Review of Systems Review of Systems: The review systems is limited secondary to the patient's ability to communicate. No fevers, chest pains, cough were reported. 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 FH: diabetes mellitus MOTHER FH: breast cancer SISTER, ; Cause: Motor vehicle accident. BROTHER, ; Cause: Cancer. FH: cancer Psychosocial History Where Do You Live? [facility] Who Do You Live With? child Services at Home: Oxygen Primary Language: Indian Smoking Status: Former Smoker ETOH Use: denies use Illicit Drug Use: denies illicit drug use Living Will? yes Power of Risk Management Director/HCP? yes Name of POA/HCP: Pt's son Alejo David [phone] Functional Ability ADLs Independent: eating. Unknown: dressing, toileting, bathing. Ambulation: non-ambulatory IADLs Independent: telephone. Unknown: shopping, housework, finances, food prep, transportation, medication admin. Exam & Diagnostic Data Vital Signs and I&O Vital Signs Date Time Temp Pulse Resp B/P B/P Pulse O2 O2 Flow FiO2 Mean Ox Delivery Rate 06/11 0800 93 BIPAP 3.0L 06/11 0750 98.6 135 22 98/54 92 CPAP 06/11 0543 135 91 06/11 0300 133 93 06/11 0159 99.1 132 24 98/60 90 BIPAP 3.0L 06/11 0006 99.7 134 24 94/54 94 BIPAP 3.0L 06/11 0002 134 94 06/11 0000 93 BIPAP 3.0L 06/10 2358 95 Nasal 2.5L Cannula 06/104 96 Nasal 3.0L Cannula 06/10 2004 98 Nasal 3.5L Cannula 06/10 1858 98.8 140 22 101/53 99 Nasal 3.0L Cannula Intake & Output 06/11 1600 06/11 0800 06/11 0000 06/10 1600 06/10 0800 06/10 0000 Intake Total 1260 2100 Output Total 400 Balance 860 2100 Intake, IV 1260 2100 Intake, Oral 0 Output, Urine 400 Patient 224 lb Weight Weight Carolina Lift Measurement Method Physical Exam: General: Nontoxic, no apparent distress. HEENT: Sclera and conjunctiva within normal limits, without xanthelasmas. Neck: Carotids 2+ without bruits. Respiratory: Scattered rhonchi, air movement is decreased at bases, on BiPAP, Heart: Regular rate and rhythm, 2/6 systolic ejection murmur at left sternal border, without JVD. Abdomen: Soft, nontender, no masses, normoactive bowel sounds. Extremities: Without clubbing, cyanosis, without edema. Neuro: Nonfocal exam, responds to simple questions with yes or no, Skin: Within normal limits without lesions. Psych: Mood and affect: Unable to fully assess Labs/Sumanth Results: Laboratory Tests 06/11 06/11 0705 0010 Chemistry Sodium (137 - 145 mmol/L) 142 Potassium (3.5 - 5.1 mmol/L) 3.6 Chloride (98 - 107 mmol/L) 99 Carbon Dioxide (22 - 30 mmol/L) 34 H Anion Gap (5 - 16) 8 BUN (9 - 20 mg/dL) 16 Creatinine (0.7 - 1.2 mg/dL) 1.4 H Estimated GFR (>60 ml/min) 49 L BUN/Creatinine Ratio (7 - 25 %) 11.4 Phosphorus (2.5 - 4.5 mg/dL) 3.1 Magnesium (1.6 - 2.3 mg/dL) 1.5 L Troponin I (<0.11 ng/ml) 0.48 *H 0.45 *H Coagulation APTT (25 - 37 SEC) 50 H Hematology CBC w Diff NO MAN DIFF REQ WBC (4.8 - 10.8 /CUMM) 16.1 H RBC (4.70 - 6.10 /CUMM) 3.39 L Hgb (14.0 - 18.0 G/DL) 9.3 L Hct (42 - 52 %) 29.4 L MCV (80.0 - 94.0 FL) 86.6 MCH (27.0 - 31.0 PG) 27.3 RDW (11.5 - 14.5 %) 16.9 H Plt Count (130 - 400 /CUMM) 333 MPV (7.4 - 10.4 FL) 8.3 Gran % (42.2 - 75.2 %) 77.4 H Lymphocytes % (20.5 - 51.1 %) 13.9 L Monocytes % (1.7 - 9.3 %) 7.2 Eosinophils % (0 - 5 %) 1.2 Basophils % (0.0 - 2.0 %) 0.3 Absolute Granulocytes (1.4 - 6.5 /CUMM) 12.4 H Absolute Lymphocytes (1.2 - 3.4 /CUMM) 2.2 Absolute Monocytes (0.10 - 0.60 /CUMM) 1.2 H Absolute Eosinophils (0.0 - 0.7 /CUMM) 0.2 Absolute Basophils (0.0 - 0.2 /CUMM) 0 PUBS MCHC (33.0 - 37.0 G/DL) 31.5 L 06/10 06/10 2219 9 Chemistry Lactic Acid Cancelled Urines Urinalysis LIGHT H Urine Color (YEL,AMB,STR) YEL Urine Clarity (CLEAR) CLEAR Urine pH (5.0 - 8.0) 6.0 Ur Specific [place] (1.001 - 1.035) 1.015 Urine Protein (NEG,<30 MG/DL) TRACE H Urine Ketones (NEG) NEG Urine Nitrite (NEG) NEG Urine Bilirubin (NEG) NEG Urine Urobilinogen (0.1 - 1.0 EU/dl) 0.2 Ur Leukocyte Esterase (NEG) NEG Ur Microscopic SEDIMENT EXAMINED Urine RBC (0 - 5 /HPF) RARE Ur Epithelial Cells (NONE,FEW) RARE Urine Hemoglobin (NEG) NEG Urine Glucose (N MG/DL) NEG 06/10 193 Blood Gas pH (7.35 - 7.45 PH) 7.36 pCO2 (35 - 45 TORR) 60 *H pO2 (80 - 100 TORR) 89 HCO3 (21 - 28 MEQ/L) 34 H ABG O2 Sat (Measured) (>96.0 %) 96.0 Carboxyhemoglobin (1.5 - 5.0 %) 0.4 L O2 Concentration % 3.5L O2 Delivery Method NC Chemistry Sodium (137 - 145 mmol/L) 139 Potassium (3.5 - 5.1 mmol/L) 3.3 L Chloride (98 - 107 mmol/L) 95 L Carbon Dioxide (22 - 30 mmol/L) 35 H Anion Gap (5 - 16) 8 BUN (9 - 20 mg/dL) 16 Creatinine (0.7 - 1.2 mg/dL) 1.5 H Estimated GFR (>60 ml/min) 46 L BUN/Creatinine Ratio (7 - 25 %) 10.7 Glucose (65 - 99 mg/dL) 156 H Lactic Acid (0.7 - 2.1 mmol/L) 1.9 Calcium (8.4 - 10.2 mg/dL) 7.8 L Total Bilirubin (0.2 - 1.3 mg/dL) 0.4 AST (17 - 59 U/L) 13 L ALT (21 - 72 U/L) 32 Alkaline Phosphatase (< 127 U/L) 94 Troponin I (<0.11 ng/ml) 0.29 *H Eic-D-Haxxtmvafln Pept (<125 pg/mL) 6790 H Total Protein (6.3 - 8.2 g/dL) 5.3 L Albumin (3.5 - 5.0 g/dL) 2.5 L Globulin (1.9 - 4.2 gm/dL) 2.8 Albumin/Globulin Ratio (1.1 - 2.2 %) 0.9 L Coagulation D-Dimer (70 - 232 ng/ml) 3641 H Hematology CBC w Diff MAN DIFF ORDERED WBC (4.8 - 10.8 /CUMM) 21.9 H RBC (4.70 - 6.10 /CUMM) 3.29 L Hgb (14.0 - 18.0 G/DL) 9.1 L Hct (42 - 52 %) 28.6 L MCV (80.0 - 94.0 FL) 87.0 MCH (27.0 - 31.0 PG) 27.6 RDW (11.5 - 14.5 %) 16.9 H Plt Count (130 - 400 /CUMM) 341 MPV (7.4 - 10.4 FL) 8.1 Gran % (42.2 - 75.2 %) 83.8 H Lymphocytes % (20.5 - 51.1 %) 9.8 L Monocytes % (1.7 - 9.3 %) 5.3 Eosinophils % (0 - 5 %) 0.8 Basophils % (0.0 - 2.0 %) 0.3 Absolute Granulocytes (1.4 - 6.5 /CUMM) 18.3 H Segmented Neutrophils (42.2 - 75.2 %) 77 H Band Neutrophils (0.0 - 5.0 %) 6 H Absolute Lymphocytes (1.2 - 3.4 /CUMM) 2.1 Lymphocytes (20.5 - 51.1 %) 10 L Monocytes (1.7 - 9.3 %) 5 Absolute Monocytes (0.10 - 0.60 /CUMM) 1.2 H Eosinophils (0 - 5.0 %) 1 Absolute Eosinophils (0.0 - 0.7 /CUMM) 0.2 Basophils (0.0 - 2.0 %) 1 Absolute Basophils (0.0 - 0.2 /CUMM) 0.1 Platelet Estimate (ADEQUATE) ADEQUATE Polychromasia 1+ Hypochromic-Microcytic 2+ Basophilic Stippling 1+ Anisocytosis 1+ PUBS MCHC (33.0 - 37.0 G/DL) 31.7 L Miscellaneous Phlebotomy Draw Site LEFT RADIAL Assessment/Plan Assessment/Plan 76-year-old gentleman with a past medical history of 80s mellitus, coronary artery disease (status post bypass surgery), COPD on home oxygen, chronic congestive heart failure secondary to systolic dysfunction, prior CVA, chronic kidney disease, hypertension and COPD. He presented to our hospital after being found with an lethargy at his extended care facility. He is found to have a significantly elevated BNP as well as mildly elevated troponin isoenzymes. Elevated troponin isoenzymes: The overall course does not appear to be secondary to a type I myocardial infarction/acute coronary syndrome rather, the troponin isoenzyme elevation may be secondary to a type II (demand) non-ST segment elevation myocardial infarction versus troponin isoenzymes in the setting of acute congestive heart failure. He elevated d-dimer does raise a suspicion of a possible pulmonary embolism which may as well be an etiology; however, the overall course of his management will be maintained as conservative. I would initiate treatment with a beta benigno if tolerated from a blood pressure standpoint. A further discussion of overall goals of care will be undertaken given the patient's previously expressed wishes. If comfort measures are not decided upon, I would consider as well a lower extremity ultrasound to exclude a DVT. If negative, full anticoagulation would not be continued. Hypoxia/dyspnea: The patient's overall clinical condition is consistent with acute congestive heart failure. Given the for overall conservative care goals, diuresis with IV Lasix should be considered. Cardio gram was performed several months ago which demonstrated overall preserved LV systolic function I would therefore not repeat a at this time. Further recommendations be made following a family meeting and discussions regarding the patient's overall course of care. Thank you for allowing us to participate in the care of your patient. Please do not hesitate to contact us further with any questions. Sincerely, Dereje Banda MD [facility] Consult Acknowledgment - Thank you for your consult request.
--- NOTE | 2016-06-11 11:52 | Cons- Pulmonary ---
General Information and HPI Consulting Request Date of Consult: 06/11/16 Requested By: Dr. Almeida Reason for Consult: hypercarbic respiratory failure Source of Information: patient Exam Limitations: no limitations History of Present Illness: 76 -year-old man resident of [place], history of DM, CAD s/p CABG, COPD, chronic hypercarbic respiratory failure, on O2 at home. Systolic CHF, CVA, CKD, HTN, anemia. Recent admission for hypercarbic respiratory failure and acute blood loss anemia secondary to a GI bleed. Patient cannot remember events from nursing facility, however per records he was somnolent and had a change of mental status and increased lethargy. No reports of chest pain, fevers or cough. It is documented that he is DNR/DNI and goals of care are not to pursue aggressive therapy, however to continue the current management. On admission his pco2 was 60 and ph compensated on 7.36. WBC was 21.9 trop 0.48 BNP 6790 Feels better this am after bipap use. Allergies/Medications Allergies: Coded Allergies: NO KNOWN ALLERGIES (04/17/15) Home Med List: Acetaminophen (Acephen) 650 MG SUPP.RECT 1 SUP OR Q4H PRN PAIN/TEMP>100 ( Reported) Acetaminophen (Pain & Fever) 325 MG TABLET 2 TAB PO Q4H PRN PAIN/TEMP>/100 ( Reported) Albuterol Sulfate 2.5 MG/3 ML (0.083 %) VIAL.NEB 1 Vial INH/STEPHANE Q4P PRN SOB ( Reported) Amino Acids/Protein Hydrolys (Pro-Stat Sugar Free Liquid) (Unknown Strength) LIQUID 30 ML PO DAILY SUPPLEMENT (Reported) Bisacodyl 10 MG SUPP.RECT 1 SUP RC PRN CONSTIPATION (Reported) Budesonide 0.5 MG/2 ML AMPUL.NEB 1 Vial INH/STEPHANE BID BREATHING PROBLEMS ( Reported) Carvedilol (Coreg) 3.125 MG TABLET 1 TAB PO BID HEART/BP (Reported) Cholecalciferol (Vitamin D3) 1,000 UNIT TABLET 1,000 IU PO DAILY low vit d Escitalopram Oxalate 10 MG TABLET 1 TAB PO DAILY MENTAL HEALTH (Reported) Fluticasone/Salmeterol (Advair 250-50 Diskus) 250 MCG-50 MCG/DOSE BLST.W.DEV 1 PUF INH BID COPD (Reported) Furosemide 20 MG TABLET 1 TAB PO Q48 WATER PILL (Reported) Glipizide 5 MG TABLET 1 TAB PO DAILY DM (Reported) Insulin Detemir (Levemir) 100 UNIT/ML VIAL 10 UNITS SC BID diabetes please continue levemir for the next 6 days and stop on april 22, 2016 Insulin Lispro (Humalog) 100 UNIT/ML VIAL DM (Reported) 151-200 2 U 201-250 4 U 251-300 6 U 301-350 8 U 351-400 10 U >400 or < 60 call Ipratropium/Albuterol Sulfate (Iprat-Albut 0.5-3(2.5) MG/3 Ml) 3 ML AMPUL.NEB 1 AMP INH 4 TIMES/DAY COPD (Reported) Magnesium Oxide (Magnesium) 400 MG CAPSULE 1 CAP PO DAILY Low Mag Na Phos,M-B/Na Phos,Di-Ba (Fleet Enema) 19 GRAM-7 GRAM/118 ML ENEMA 1 E RC DAILY PRN CONSTIPATION (Reported) Pantoprazole Sodium (Protonix) 40 MG TABLET.DR 1 TAB PO DAILY DUODENAL ULCER Polyethylene Glycol 3350 (Miralax) 17 GRAM POWD.PACK 1 PAC PO DAILY CONSTIPATION dissolve in water Rosuvastatin Calcium (Crestor) 10 MG TABLET 1 TAB PO QPM CHOLESTEROL ( Reported) Sennosides (Senna) 8.6 MG TABLET 1 TAB PO 1600 CONSTIPATION (Reported) Tiotropium [place] (Spiriva) 18 MCG CAP.W.DEV 1 CAP INH DAILY BREATHING PROBLEMS (Reported) Current Medications: Current Medications Sig/Amadeo Start time Last Medication Dose Route Stop Time Status Admin Albuterol Sulfate 3 ML Q4P PRN 06/10 2300 AC INH Albuterol Sulfate 3 ML ONCE ONE 06/10 1900 DC 06/10 INH 06/10 190 1940 Ampicillin Sodium/ 0 .STK-MED ONE 06/10 2121 DC Sulbactam Sodium .ROUTE Ampicillin Sodium/ 1,500 MG ONCE ONE 06/10 2100 DC 06/10 Sulbactam Sodium IV 06/10 Sodium Chloride 100 ML Atorvastatin Calcium 40 MG 1700 06/11 1700 AC PO Carvedilol 3.125 MG BID 06/11 1000 CAN PO Ceftazidime 1,000 MG Q8H 06/11 0100 AC 06/11 IV 0845 Furosemide 20 MG Q48 06/12 1000 CAN PO Heparin Sodium 3,048 UNIT 0900 06/11 0900 DC 06/11 (Porcine) IV 06/11 0901 0900 Heparin Sodium 25,000 UNIT Q24H 06/11 0045 AC 06/11 (Porcine) IV 0100 Sodium Chloride 500 ML Insulin Aspart 0 TIDAC 06/11 0800 AC SC Insulin Detemir 8 UNITS BID 06/11 1000 AC SC Insulin Detemir 4 UNITS ONCE ONE 06/11 0915 DC 06/11 SC 06/11 0916 0907 Ipratropium [place] 2.5 ML ONCE ONE 06/10 2300 DC INH 06/10 2301 Ipratropium [place] 2.5 ML ONCE ONE 06/10 1900 DC 06/10 INH 06/10 1901 1940 Potassium Chloride 20 MEQ Q13H 06/10 2315 AC 06/10 Sodium Chloride 1,000 ML IV 2344 Potassium Chloride 20 MEQ ONCE ONE 06/10 2315 DC PO 06/10 2316 Sodium Chloride 500 ML BOLUS ONE 06/11 0030 DC 06/11 IV 06/11 0129 0058 Sodium Chloride 1,000 ML BOLUS ONE 06/10 2100 DC 06/10 IV 06/10 2159 2123 Sodium Chloride 1,000 ML BOLUS ONE 06/10 1900 DC 06/10 IV 06/10 1959 1933 Tiotropium [place] 1 PUF DAILY 06/11 1000 AC INH Vancomycin HCl 1,500 MG DAILY 06/11 1000 AC 06/11 Sodium Chloride 500 ML IV 1119 Review of Systems Comments 18 pt ros reviewed all pertinent positives and negatives in HPI, otherwise negative Past History Travel History Traveled to [place] past 21 day No Medical History Neurological: TIA, essential tremor EENT: NONE Cardiovascular: CAD, hypertension, hyperlipidemia, myocardial infarction, systolic CHF Respiratory: COPD, obstructive sleep apnea, pneumonia Gastrointestinal: NONE Hepatic: NONE Renal: chronic kidney disease Musculoskeletal: NONE Psychiatric: NONE Endocrine: diabetes, obesity Blood Disorders: anemia Cancer(s): NONE MESSAGING ARCHITECT/Reproductive: NONE Surgical History Surgical History: CABG (x 2010 @ [facility]), back surgery surgeries in bilateral shoulders right knee surgery Family History Relations & Conditions If Any: FATHER, ; Cause: MVA (motor vehicle accident). FH: diabetes mellitus MOTHER FH: breast cancer SISTER, ; Cause: Motor vehicle accident. BROTHER, ; Cause: Cancer. FH: cancer Psychosocial History Where Do You Live? Long Term Facility Who Do You Live With? child Services at Home: Oxygen Primary Language: Khmer Smoking Status: Former Smoker ETOH Use: denies use Illicit Drug Use: denies illicit drug use Living Will? yes Power of Assistant Foreman/HCP? yes Name of POA/HCP: Pt's son Alejo David [phone] Functional Ability ADLs Independent: eating. Unknown: dressing, toileting, bathing. Ambulation: non-ambulatory IADLs Independent: telephone. Unknown: shopping, housework, finances, food prep, transportation, medication admin. Exam & Diagnostic Data Last 24 Hrs of Vital Signs/I&O Vital Signs Date Time Temp Pulse Resp B/P B/P Pulse O2 O2 Flow FiO2 Mean Ox Delivery Rate 06/11 0800 93 BIPAP 3.0L 06/11 0750 98.6 135 22 98/54 92 CPAP 06/11 0543 135 91 06/11 0300 133 93 06/11 0159 99.1 132 24 98/60 90 BIPAP 3.0L 06/11 0006 99.7 134 24 94/54 94 BIPAP 3.0L 06/11 0002 134 94 06/11 0000 93 BIPAP 3.0L 06/10 2358 95 Nasal 2.5L Cannula 06/10 2124 96 Nasal 3.0L Cannula 06/10 2004 98 Nasal 3.5L Cannula 06/10 1858 98.8 140 22 101/53 99 Nasal 3.0L Cannula Intake & Output 06/11 1600 06/11 0800 06/11 0000 Intake Total 1260 2100 Output Total 400 Balance 860 2100 Intake, IV 1260 2100 Intake, Oral 0 Output, Urine 400 Patient 224 lb Weight Weight [place] Lift Measurement Method Physical Exam Other Physical Findings: gen awake and alert heent ncat cvs s1, s2 lungs wheezing mainly on left abd soft bs+ ext 1+ edema Last 48 Hrs of Labs/[place]: Laboratory Tests 06/11/16 1100: Troponin I Cancelled 06/11/16 0705: Anion Gap 8, Estimated GFR 49 L, BUN/Creatinine Ratio 11.4, Phosphorus 3.1, Magnesium 1.5 L, Troponin I 0.48 *H, APTT 50 H, CBC w Diff NO MAN DIFF REQ, RBC 3.39 L, MCV 86.6, MCH 27.3, RDW 16.9 H, MPV 8.3, Gran % 77.4 H, Lymphocytes % 13.9 L, Monocytes % 7.2, Eosinophils % 1.2, Basophils % 0.3, Absolute Granulocytes 12.4 H, Absolute Lymphocytes 2.2, Absolute Monocytes 1.2 H, Absolute Eosinophils 0.2, Absolute Basophils 0, PUBS MCHC 31.5 L 06/11/16 0010: Troponin I 0.45 *H 06/10/16 2219: Urinalysis LIGHT H, Urine Color YEL, Urine Clarity CLEAR, Urine pH 6.0, Ur Specific [place] 1.015, Urine Protein TRACE H, Urine Ketones NEG, Urine Nitrite NEG, Urine Bilirubin NEG, Urine Urobilinogen 0.2, Ur Leukocyte Esterase NEG, Ur Microscopic SEDIMENT EXAMINED, Urine RBC RARE, Ur Epithelial Cells RARE, Urine Hemoglobin NEG, Urine Glucose NEG 06/10/162158: Lactic Acid Cancelled 06/10/161953: pH 7.36, pCO2 60 *H, pO2 89, HCO3 34 H, ABG O2 Sat (Measured) 96.0, Carboxyhemoglobin 0.4 L, O2 Concentration % 3.5L, O2 Delivery Method NC, Phlebotomy Draw Site LEFT RADIAL 06/10/16 193: Anion Gap 8, Estimated GFR 46 L, BUN/Creatinine Ratio 10.7, Glucose 156 H, Lactic Acid 1.9, Calcium 7.8 L, Total Bilirubin 0.4, AST 13 L, ALT 32, Alkaline Phosphatase 94, Troponin I 0.29 *H, Ufx-G-Mzjnwmzwqbs Pept 6790 H, Total Protein 5.3 L, Albumin 2.5 L, Globulin 2.8, Albumin/Globulin Ratio 0.9 L, D-Dimer 3641 H, CBC w Diff MAN DIFF ORDERED, RBC 3.29 L, MCV 87.0, MCH 27.6 , RDW 16.9 H, MPV 8.1, Gran % 83.8 H, Lymphocytes % 9.8 L, Monocytes % 5.3, Eosinophils % 0.8, Basophils % 0.3, Absolute Granulocytes 18.3 H, Segmented Neutrophils 77 H, Band Neutrophils 6 H, Absolute Lymphocytes 2.1, Lymphocytes 10 L, Monocytes 5, Absolute Monocytes 1.2 H, Eosinophils 1, Absolute Eosinophils 0.2, Basophils 1, Absolute Basophils 0.1, Platelet Estimate ADEQUATE , Polychromasia 1+, Hypochromic-Microcytic 2+, Basophilic Stippling 1+, Anisocytosis 1+, PUBS MCHC 31.7 L Assessment/Plan Impression/Plan: Impression 76 year old man * improved hypercarbic and hypoxemic respiratory failure secondary to underlying CHF * COPD is chornic and appears compensated, however we are treating for a possible mild exacerbation that can be due to fluid overload and underlying atelectasis * leukocytosis possibly steroid related, however we are treating for a possible HCAP Plan - trc/nebs - sputum cx - cont abx - bipap to reduce work of breathing as needed and nocturnal - goals of care discussion with family - would add solumedrol 40mg iv q12h - diuresis, f/u ins/outs, daily weights - f/u cardiology recommendations DVT prophylaxis at all times Consult Acknowledgment - Thank you for your consult request.
[2016-06-11 14:46] LABS: PTT > 120 SEC (25-37)
--- NOTE | 2016-06-11 15:09 | NUR ---
1450 SALAZAR ONLY DRAINED 150ML IN [address] GARCIA AWARE AND ASKED TO BLADDER SCAN PT. 1500 BLADDER SCAN+88ML IN BLADDER. RADHA AWARE AND WILL COME ASSESS PT. WILL CONTINUE TO MONITOR PT.
[2016-06-11 15:30] VITALS: BP 92/58
[2016-06-11 21:58] LABS: PTT 25 SEC (25-37)
[2016-06-12 00:37] VITALS: BP 112/64
--- NOTE | 2016-06-12 02:28 | NUR ---
LATE ENTRY PTT- 25. BOLUS ORDERED. RATE INCREASED. NEXT PTT 0500.
[2016-06-12 05:51] LABS: ABSOLUTE BASOPHIL COUNT 0 /CUMM (0.0-0.2); ABSOLUTE EOSINOPHIL COUNT 0 /CUMM (0.0-0.7); ABSOLUTE GRANULOCYTE CT 12.7 /CUMM (1.4-6.5); ABSOLUTE LYMPH COUNT 1.1 /CUMM (1.2-3.4); ABSOLUTE MONOCYTE COUNT 0.1 /CUMM (0.10-0.60); BASOPHIL % 0.1 % (0.0-2.0); EOSINOPHIL % 0 % (0-5); GRANULOCYTE % 91.2 % (42.2-75.2); HEMATOCRIT 29.5 % (42-52); MEAN CORPUSCULAR HGB 27.1 PG (27.0-31.0); MEAN CORPUSCULAR HGB CONC 31.2 G/DL (33.0-37.0); MEAN CORPUSCULAR VOLUME 86.9 FL (80.0-94.0); MEAN PLATELET VOLUME 8.8 FL (7.4-10.4); PLATELET COUNT 332 /CUMM (130-400); RBC DISTRIBUTION WIDTH 17.7 % (11.5-14.5)
[2016-06-12 06:19] LABS: PTT 103 SEC (25-37)
[2016-06-12 06:21] LABS: WHITE BLOOD CELL COUNT 13.9 /CUMM (4.8-10.8)
--- NOTE | 2016-06-12 07:12 | NUR ---
PTT-103. HEPARIN STOPPED FOR ONE HOUR. RATE DECREASED. NEXT PTT 1330.
[2016-06-12 08:02] VITALS: BP 98/66
--- NOTE | 2016-06-12 09:09 | PN- Housestaff ---
KENA BERNSTEIN 06/12/16 0909: Subjective Follow-up For: positive trop respiratory failure tachycardia Tele-Events Since Last Visit: ST, 130-135 Subjective: I have seen and examined the patient. Patient is alert and oriented 2. Patient denies any chest pain, coughing, abdominal pain, dizziness. Still tachycardic. Review of Systems Constitutional: Reports: see HPI. Objective Last 24 Hrs of Vital Signs/I&O Vital Signs Date Time Temp Pulse Resp B/P B/P Pulse O2 O2 Flow FiO2 Mean Ox Delivery Rate 06/12 1136 93 Nasal 2.0L Cannula 06/12 0802 97.8 133 20 98/66 97 BIPAP 06/12 0800 BIPAP 3.0L 06/12 0037 98.5 132 18 112/64 94 Nasal Cannula 06/12 0030 131 92 06/12 0000 BIPAP 06/11 2144 130 93 06/11 2115 96 Nasal 3.0L Cannula 06/11 1906 137 108/72 06/11 1835 137 108/72 06/11 1757 Nasal 3.0L Cannula 06/11 1530 98.2 136 18 92/58 93 Nasal 2.0L Cannula 06/11 1437 96 Nasal 3.0L Cannula Intake & Output 06/12 1600 06/12 0800 06/12 0000 Intake Total 888 840.5 Output Total 100 100 Balance 788 740.5 Intake, IV 768 720.5 Intake, Oral 120 120 Output, Urine 100 100 Physical Exam General Appearance: Alert, Cooperative, No Acute Distress Cardiovascular: Normal S1, Normal S2, tahcycadria Lungs: Clear to Auscultation Abdomen: Normal Bowel Sounds, No Tenderness Extremities: No Clubbing (bilateral pedal edema) Assessment/Plan Assessment: 76-year-old gentleman who resides at [facility] brought in for lethargy and confusion. PMH type 2 diabetes, CAD S/P CABG, COPD on 2 LNC, HFrEF of 50% on , stage I diastolic dysfunction, RVSP 42mmHg, CVA, or say on nocturnal CPAP, stage III VKD, HTN, recent admissions for CHF/COPD exacerbation in June 2015, March 2016. VS on admission: BP 1 02/24/1951, HR 140, RR 22, SPO2 99% on 3L NC, T 98.9 Pertinent labs on admission: WBC 21.9, 6% bandemia, H&H 9.1/28.6, d-dimer 3641, potassium 3.3, BUN/CR 16/1.5 Serial troponins: 0.29, 0.45, 0.48 AB.36/60/89/34/96% on 3.5 L NC Problem list: 1. Elevated troponins: Likely type II 2. SIRS criteria 3. Persistent tachycardia 4. Hypokalemia 5. Elevated d-dimer 6. Lethargy/AMS 7. Diabetes 8. JUANITO on CPAP Plan: #Elevated troponins: Likely type II due to PE * No evidence of ST-T elevations on serial EKGs, troponin is trending down * Follow-up with cardio * No metoprolol or Coreg for now #Persistent tachycardia -bilateral DVT -Presumably patient has PE, no right heart strain -Continue the PE protocol heparin # Diabetes * We'll give half his Levemir dose this morning in the setting of no PO intake. Continue with maintenance fluids and Accu-Cheks #JUANITO on CPAP * We'll continue CPAP and assess for respiratory improvement later in the morning * Pulmonology recommendations pending * Continuing vancomycin and ceftaz for possible HCAP * Continue CPAP as tolerated #ANURIA * Possibly due to borderline low blood pressure * We will give IV Lasix 10 mg for challenge * Ultrasound of the kidneys did not show any obstruction on the right side * discussed with the family DNR/DNI, diabetic diet, heparin IV for DVT prophylaxis. Problem List: 1. ACUTE RENAL FAILURE Pain Ratin Pain Location: no pain Pain Goal: Remain pain free Pain Plan: same Tomorrow's Labs & Rationales: CBC BEP Consulting Request: Consulting Specialty: Cardiology KO BARRETT,[facility] 06/12/16 1322: Attending MD Review Statement Attending Statement Attending MD Statement: examined this patient, discuss w/resident/PA/RECORD CUTTER, agreed w/resident/PA/RECORD CUTTER, discussed with family, reviewed EMR data (avail), discussed with nursing, discussed with case mgmt, reviewed images, amended to note Attending Assessment/Plan: Patient resting comfortably in bed. In deep sleep. No overnight events. Has been on BiPAP overnight .He is tachycardic in 130s on telemetry. Bilateral lower extremity Doppler is positive for DVT. Afebrile. Leukocytosis trending down. Hypokalemia has resolved. Creatinine has increased from 1.2 to 1.3. Increase urinary output last 24 hours noted. Recommendations: -Continue heparin for DVT -Check echo to rule out right heart strain. -Follow-up cultures .Continue antibiotics for now. -Continue with BiPAP. -Please stop the fluids containing potassium as patient's hypokalemia has resolved. Gentle hydration with normal saline. -Patient's tachycardia could be because of ?Pulmonary embolism, he cannot have beta benigno with borderline blood pressure at this point. -Check ultrasound kidneys, he may need nephrology on board if the urine output does not improve
--- NOTE | 2016-06-12 09:51 | ULTRASOUND REPORT ---
EXAMINATION: DOPPLER VENOUS ULTRASOUND EXTREMITY, BILATERAL CLINICAL INFORMATION: Bilateral lower extremity swelling and edema. COMPARISON: None. TECHNIQUE: Grayscale, Doppler and spectral analysis of each lower extremity was performed. FINDINGS: On the right, there is partially occlusive thrombus extending from the common femoral vein through to the popliteal vein. On the left, there is partially occlusive thrombus extending from the common femoral vein through to the popliteal vein. There is a left popliteal fossa Alvarez's cyst measuring 2.2 cm. IMPRESSION: Partially occlusive bilateral lower extremity deep venous thrombosis worrisome for an acute process.
--- NOTE | 2016-06-12 11:10 | PN- Pulmonary ---
Subjective HPI/Critical Care Issues: Patient seen and examined this morning. Afebrile. He is tachycardic throughout the night in the 130s. He has been on BiPAP overnight and currently on oxygen saturating 97% and hemodynamically stable. White count has been reduced to 13.9. His lower extremity Doppler shows a partially occlusive bilateral lower extremity DVT. Objective Current Medications: Current Medications Sig/Amadeo Start time Last Medication Dose Route Stop Time Status Admin Albuterol Sulfate 3 ML EVERY 4 HRS/AWAKE 06/12 1999 AC 06/11 INH 211 Albuterol Sulfate 3 ML Q4P PRN 06/10 2300 DC 06/11 INH 1436 Atorvastatin Calcium 40 MG 1700 06/11 1700 AC PO Carvedilol 3.125 MG ONCE ONE 06/11 191 DC 06/11 PO 06/11 191 1906 Ceftazidime 1,000 MG Q8H 06/11 0100 AC 06/12 IV 0824 Heparin Sodium 6,096 UNIT ONCE ONE 06/11 2245 DC 06/11 (Porcine) IV 06/11 2246 2251 Heparin Sodium 10,000 UNIT .STK-MED ONE 06/11 2226 DC (Porcine) IV 06/11 2227 Heparin Sodium 25,000 UNIT Q24H 06/11 0045 AC 06/12 (Porcine) IV 0011 Sodium Chloride 500 ML Insulin Aspart 0 TIDAC 06/11 0800 AC 06/12 SC 0928 Insulin Detemir 8 UNITS BID 06/11 1000 AC 06/12 SC 0928 Magnesium Sulfate 1 GM Q2H 06/12 1045 AC Dextrose/Water 100 ML IV 06/12 1444 Methylprednisolone 40 MG Q12 06/11 1325 AC 06/12 IV 0928 Metoprolol Tartrate 2.5 MG ONCE ONE 06/11 1830 DC 06/11 IV 06/11 1831 1835 Potassium Chloride 20 MEQ Q13H 06/10 2315 AC 06/12 Sodium Chloride 1,000 ML IV 0209 Sodium Chloride 250 ML BOLUS ONE 06/12 1045 AC IV 06/12 1144 Tiotropium [place] 1 PUF DAILY 06/11 1000 AC 06/12 INH 0941 Vancomycin HCl 1,500 MG DAILY 06/11 1000 AC 06/11 Sodium Chloride 500 ML IV 1119 Vital Signs & I&O Last 24 Hrs of Vitals and I&O: Vital Signs Date Time Temp Pulse Resp B/P B/P Pulse O2 O2 Flow FiO2 Mean Ox Delivery Rate 06/12 0802 97.8 133 20 98/66 97 BIPAP 06/12 0800 BIPAP 3.0L 06/12 0037 98.5 132 18 112/64 94 Nasal Cannula 06/12 0030 131 92 06/12 0000 BIPAP 06/11 2144 130 93 06/11 2115 96 Nasal 3.0L Cannula 06/11 1906 137 108/72 06/11 1835 137 108/72 06/11 1757 Nasal 3.0L Cannula 06/11 1530 98.2 136 18 92/58 93 Nasal 2.0L Cannula 06/11 1437 96 Nasal 3.0L Cannula Intake & Output 06/12 1600 06/12 0800 06/12 0000 Intake Total 888 840.5 Output Total 100 100 Balance 788 740.5 Intake, IV 768 720.5 Intake, Oral 120 120 Output, Urine 100 100 Exam Other Physical Findings: gen awake and alert heent ncat cvs s1, s2 lungs wheezing mainly on left abd soft bs+ ext 1+ edema Results Last 24 Hrs of Lab Results: Laboratory Tests 06/12/16 0515: Anion Gap 10, Estimated GFR 54 L, BUN/Creatinine Ratio 16.2, Phosphorus 4.4, Magnesium 1.5 L, APTT 103 *H, CBC w Diff NO MAN DIFF REQ, RBC 3.40 L, MCV 86.9 , MCH 27.1, RDW 17.7 H, MPV 8.8, Gran % 91.2 H, Lymphocytes % 8.2 L, Monocytes % 0.5 L, Eosinophils % 0, Basophils % 0.1, Absolute Granulocytes 12.7 H, Absolute Lymphocytes 1.1 L, Absolute Monocytes 0.1 L, Absolute Eosinophils 0, Absolute Basophils 0, PUBS MCHC 31.2 L 06/11/16 2200: Anion Gap 9, Estimated GFR 59 L, BUN/Creatinine Ratio 15.0 06/11/16 2105: APTT 25 06/11/16 1400: Troponin I 0.45 *H, APTT > 120 *H Impression/Plan Impression/Plan Impression/Plan: Impression 76 year old man * improved hypercarbic and hypoxemic respiratory failure secondary to underlying CHF * COPD is chornic and appears compensated, however we are treating for a possible mild exacerbation that can be due to fluid overload and underlying atelectasis * leukocytosis possibly steroid related, however we are treating for a possible HCAP * partially occlussive bilateral LE DVTs 06/12 Plan - change heparin protocol to VTE dosing, pt has had gi bleeding previously, would not benefit from NOACs, would be safest to pursue tx with coumadin oysterman, this new finding obviates the need for a CT, can presume a high likelihood of a pulmonary embolism - VTE therapy remains the same, would consider repeat ECHO to evaluate right sided function, please alert cardiology - trc/nebs - sputum cx - cont abx - bipap to reduce work of breathing as needed and nocturnal - goals of care discussion with family - cont solumedrol 40mg iv q12h - diuresis, f/u ins/outs, daily weights - f/u cardiology recommendations DVT prophylaxis at all times
--- NOTE | 2016-06-12 13:38 | PN- Cardiology ---
Subjective Subjective: The patient is awake, alert Answers yes or no questions appropriately The events of the last 24 hours as well as telemetry were reviewed. Review of Systems: The review of systems is negative for chest pains, palpitations nor lightheadedness. The remainder of the 14 point review of systems is noncontributory with the exception of above. Objective Vital Signs and I&Os Vital Signs Date Time Temp Pulse Resp B/P B/P Pulse O2 O2 Flow FiO2 Mean Ox Delivery Rate 06/12 1136 93 Nasal 2.0L Cannula 06/12 0802 97.8 133 20 98/66 97 BIPAP 06/12 0800 BIPAP 3.0L 06/12 0037 98.5 132 18 112/64 94 Nasal Cannula 06/12 0030 131 92 06/12 0000 BIPAP 06/11 2144 130 93 06/11 2115 96 Nasal 3.0L Cannula 06/11 1906 137 108/72 06/11 1835 137 108/72 06/11 1757 Nasal 3.0L Cannula 06/11 1530 98.2 136 18 92/58 93 Nasal 2.0L Cannula 06/11 1437 96 Nasal 3.0L Cannula Intake & Output 06/12 1600 06/12 0800 06/12 0000 06/11 1600 06/11 0800 06/11 0000 Intake Total 888 840.5 1374.6 1260 2100 Output Total 100 100 150 400 Balance 788 740.5 1224.6 860 2100 Intake, IV 768 720.5 1314.6 1260 2100 Intake, Oral 120 120 60 0 Output, Urine 100 100 150 400 Patient 224 lb Weight Weight [place] Lift Measurement Method Physical Exam: General: Nontoxic, no apparent distress. HEENT: Sclera and conjunctiva within normal limits, without xanthelasmas. Neck: Carotids 2+ without bruits. Respiratory: Scattered rhonchi, air movement is good, without accessory respiratory muscle use. Heart: Regular rate and rhythm, without murmurs, without JVD. Abdomen: Soft, nontender, no masses, normoactive bowel sounds. Extremities: Without clubbing, cyanosis, without edema. Neuro: Nonfocal exam, strength, 5 out of 5 Skin: Within normal limits without lesions. Psych: Mood and affect: Confused Current Medications: Current Medications Sig/Amadeo Start time Last Medication Dose Route Stop Time Status Admin Albuterol Sulfate 3 ML EVERY 4 HRS/AWAKE 06/12 1999 AC 06/11 INH 2112 Albuterol Sulfate 3 ML Q4P PRN 06/10 2300 DC 06/11 INH 1436 Atorvastatin Calcium 40 MG 1700 06/11 1700 AC PO Carvedilol 3.125 MG ONCE ONE 06/11 1915 DC 06/11 PO 06/11 1916 1906 Ceftazidime 1,000 MG Q8H 06/11 0100 AC 06/12 IV 0824 Heparin Sodium 25,000 UNIT Q24H 06/12 1115 AC (Porcine) IV Sodium Chloride 500 ML Heparin Sodium 6,096 UNIT ONCE ONE 06/11 2245 DC 06/11 (Porcine) IV 06/11 224 2251 Heparin Sodium 10,000 UNIT .STK-MED ONE 06/116 DC (Porcine) IV 06/11 2227 Heparin Sodium 25,000 UNIT Q24H 06/11 0045 DC 06/12 (Porcine) IV 0011 Sodium Chloride 500 ML Insulin Aspart 0 TIDAC 06/11 0800 AC 06/12 SC 1247 Insulin Detemir 8 UNITS BID 06/11 1000 AC 06/12 SC 0928 Ipratropium [place] 2.5 ML Q4 HRS NEEDED PRN 06/12 1130 AC 06/12 INH 1131 Magnesium Sulfate 1 GM Q2H 06/12 1045 AC Dextrose/Water 100 ML IV 06/12 1444 Methylprednisolone 40 MG Q12 06/11 1325 AC 06/12 IV 0928 Metoprolol Tartrate 2.5 MG ONCE ONE 06/11 1830 DC 06/11 IV 06/11 1831 1835 Potassium Chloride 20 MEQ Q13H 06/10 2315 AC 06/12 Sodium Chloride 1,000 ML IV 0209 Sodium Chloride 250 ML BOLUS ONE 06/12 1045 DC 06/12 IV 06/12 1144 1326 Tiotropium [place] 1 PUF DAILY 06/11 1000 AC 06/12 INH 0941 Vancomycin HCl 1,500 MG DAILY 06/11 1000 AC 06/12 Sodium Chloride 500 ML IV 1109 Results Last 48 Hrs of Labs/Mics: Laboratory Tests 06/12/16 1230: APTT Pending 06/12/16 0515: Anion Gap 10, Estimated GFR 54 L, BUN/Creatinine Ratio 16.2, Phosphorus 4.4, Magnesium 1.5 L, APTT 103 *H, CBC w Diff NO MAN DIFF REQ, RBC 3.40 L, MCV 86.9 , MCH 27.1, RDW 17.7 H, MPV 8.8, Gran % 91.2 H, Lymphocytes % 8.2 L, Monocytes % 0.5 L, Eosinophils % 0, Basophils % 0.1, Absolute Granulocytes 12.7 H, Absolute Lymphocytes 1.1 L, Absolute Monocytes 0.1 L, Absolute Eosinophils 0, Absolute Basophils 0, PUBS MCHC 31.2 L 06/11/16 2200: Anion Gap 9, Estimated GFR 59 L, BUN/Creatinine Ratio 15.0 06/11/16 2105: APTT 25 06/11/16 1400: Troponin I 0.45 *H, APTT > 120 *H 06/11/16 1100: Troponin I Cancelled 06/11/16 0705: Anion Gap 8, Estimated GFR 49 L, BUN/Creatinine Ratio 11.4, Phosphorus 3.1, Magnesium 1.5 L, Troponin I 0.48 *H, APTT 50 H, CBC w Diff NO MAN DIFF REQ, RBC 3.39 L, MCV 86.6, MCH 27.3, RDW 16.9 H, MPV 8.3, Gran % 77.4 H, Lymphocytes % 13.9 L, Monocytes % 7.2, Eosinophils % 1.2, Basophils % 0.3, Absolute Granulocytes 12.4 H, Absolute Lymphocytes 2.2, Absolute Monocytes 1.2 H, Absolute Eosinophils 0.2, Absolute Basophils 0, PUBS MCHC 31.5 L 06/11/16 0010: Troponin I 0.45 *H 06/10/162218: Urinalysis LIGHT H, Urine Color YEL, Urine Clarity CLEAR, Urine pH 6.0, Ur Specific [place] 1.015, Urine Protein TRACE H, Urine Ketones NEG, Urine Nitrite NEG, Urine Bilirubin NEG, Urine Urobilinogen 0.2, Ur Leukocyte Esterase NEG, Ur Microscopic SEDIMENT EXAMINED, Urine RBC RARE, Ur Epithelial Cells RARE, Urine Hemoglobin NEG, Urine Glucose NEG 06/10/162158: Lactic Acid Cancelled 06/10/161953: pH 7.36, pCO2 60 *H, pO2 89, HCO3 34 H, ABG O2 Sat (Measured) 96.0, Carboxyhemoglobin 0.4 L, O2 Concentration % 3.5L, O2 Delivery Method NC, Phlebotomy Draw Site LEFT RADIAL 06/10/161937: Anion Gap 8, Estimated GFR 46 L, BUN/Creatinine Ratio 10.7, Glucose 156 H, Lactic Acid 1.9, Calcium 7.8 L, Total Bilirubin 0.4, AST 13 L, ALT 32, Alkaline Phosphatase 94, Troponin I 0.29 *H, Fdk-[id number]-Uuoidekhyqw Pept 6790 H, Total Protein 5.3 L, Albumin 2.5 L, Globulin 2.8, Albumin/Globulin Ratio 0.9 L, D-Dimer 3641 H, CBC w Diff MAN DIFF ORDERED, RBC 3.29 L, MCV 87.0, MCH 27.6 , RDW 16.9 H, MPV 8.1, Gran % 83.8 H, Lymphocytes % 9.8 L, Monocytes % 5.3, Eosinophils % 0.8, Basophils % 0.3, Absolute Granulocytes 18.3 H, Segmented Neutrophils 77 H, Band Neutrophils 6 H, Absolute Lymphocytes 2.1, Lymphocytes 10 L, Monocytes 5, Absolute Monocytes 1.2 H, Eosinophils 1, Absolute Eosinophils 0.2, Basophils 1, Absolute Basophils 0.1, Platelet Estimate ADEQUATE , Polychromasia 1+, Hypochromic-Microcytic 2+, Basophilic Stippling 1+, Anisocytosis 1+, PUBS MCHC 31.7 L Microbiology 06/10 2218 URINE ROUT: Urine Culture - COMP Assessment/Plan Assessment/Plan 76-year-old gentleman with a past medical history of 80s mellitus, coronary artery disease (status post bypass surgery), COPD on home oxygen, chronic congestive heart failure secondary to systolic dysfunction, prior CVA, chronic kidney disease, hypertension and COPD. He presented to our hospital after being found with an lethargy at his extended care facility. He is found to have a significantly elevated BNP as well as mildly elevated troponin isoenzymes. Elevated troponin isoenzymes: The overall course does not appear to be secondary to a type I myocardial infarction/acute coronary syndrome.. The suspicion for a pulmonary embolism has been raised and may be causative of the troponin elevation. This is as well suggested with positive DVT scans. Anti-coagulation has been initiated I would increase the regimen of beta benigno if tolerated from a blood pressure standpoint. A further discussion of overall goals of care will be undertaken given the patient's previously expressed wishes. Hypoxia/dyspnea: The patient's overall clinical condition is consistent with acute congestive heart failure; however, with the possibility of pulmonary embolism as well. At this time, we will obtain a limited follow-up echocardiogram to determine the RV structure and consistency for pulmonary embolism. He will remain on anticoagulation for now. Further recommendations be made following a family meeting and discussions regarding the patient's overall course of care. Continue telemetry? Yes
--- NOTE | 2016-06-12 14:39 | NUR ---
SALAZAR PUT OUT 100ML IN 8 HOURS. BLADDER SCAN WAS 66ML. RELATIONSHIP MANAGER KENA AWARE. WILL CONTINUE TO MONITOR PT.
--- NOTE | 2016-06-12 15:04 | ECHOCARDIOGRAM REPORT ---
FLORENTINO MARIE Age: 76 : 1940 Gender: M Exam Date: 06/12/2016 13:14 Exam Location: [facility] Ht (in): 68 Wt (lb): 224 BSA: 2.24 BP: 98 / 60 Ordering Physician: KENA BERNSTEIN MD Referring Physician: Dereje Banda M.D. Technologist: Malia Hurd FRANCISCO Room Number: 171 Indications: ACUTE PULMONARY EMBOLISM Rhythm: Technical Quality: suboptimal FINDINGS Left Ventricle Normal LV chamber size with mild to moderate concentric LVH. The LVEF is 40%. There is mild global hypokinesis. Right Ventricle Borderline dilated right ventricular chamber size with grossly normal function Right Atrium Normal appearing right atrium Left Atrium Normal appearing left atrium Mitral Valve Mildly calcified mitral valvular leaflets and annulus. It is adequate leaflet opening. There is mild to moderate mitral regurgitation Aortic Valve Moderately calcified, trileaflet aortic valve with possible fusion between the left and right coronary leaflets. There is no significant aortic stenosis. There is trace to mild aortic insufficiency Tricuspid Valve Grossly normal appearing tricuspid valvular leaflets with mild tricuspid regurgitation. Estimated RV systolic pressure is 35 mmHg Pulmonic Valve Suboptimally visualized Pericardium Grossly normal Great Vessels Grossly normal CONCLUSIONS Normal LV chamber size with mild to moderate concentric LVH. The LVEF is 40%. There is mild global hypokinesis. Borderline dilated right ventricular chamber size with grossly normal function. Mildly calcified mitral valvular leaflets and annulus. It is adequate leaflet opening. There is mild to moderate mitral regurgitation. Moderately calcified, trileaflet aortic valve with possible fusion between the left and right coronary leaflets. There is no significant aortic stenosis. There is trace to mild aortic insufficiency. Grossly normal appearing tricuspid valvular leaflets with mild tricuspid regurgitation. Estimated RV systolic pressure is 35 mmHg. Dereje Banda M.D. (Electronically Signed) Final Date: 12 June 2016 15:03 MEASUREMENTS (Male / Female) Normal Values 2D ECHO LV Diastolic Diameter PLAX 5.6 cm 4.2 - 5.9 / 3.9 - 5.3 cm LV Systolic Diameter PLAX 4.1 cm 2.1 - 4.0 cm LV Fractional Shortening PLAX 26.8 % 25 - 46 % LV Ejection Fraction 2D Teich 51.7 % IVS Diastolic Thickness 1.6 cm LVPW Diastolic Thickness 1.6 cm LV Relative Wall Thickness 0.6 RV Internal Dim ED PLAX 3.6 cm 1.9 - 3.8 cm LVOT Diameter 2.0 cm Aortic Root Diameter 2.9 cm LA Systolic Diameter LX 3.8 cm 3.0 - 4.0 / 2.7 - 3.8 cm LA Volume 41.0 cm 18 - 58 / 22 - 52 cm Ascending Aorta Diameter 3.2 cm DOPPLER AV Peak Velocity 129.0 cm/s AV Peak Gradient 6.7 mmHg AV Mean Velocity 96.0 cm/s AV Mean Gradient 4.0 mmHg AV Velocity Time Integral 23.3 cm LVOT Peak Velocity 82.7 cm/s LVOT Peak Gradient 2.7 mmHg LVOT Mean Velocity 56.8 cm/s LVOT Mean Gradient 2.0 mmHg LVOT Velocity Time Integral 13.5 cm LVOT Stroke Volume 42.4 cm AV Area Cont Eq vti 1.8 cm AV Area Cont Eq pk 2.0 cm MV Peak Velocity 150.0 cm/s MV Peak Gradient 9.0 mmHg MV Mean Velocity 81.5 cm/s MV Mean Gradient 4.0 mmHg Mitral E Point Velocity 116.0 cm/s MV PHT Velocity 156.0 cm/s MV Deceleration [place] 1019.0 cm/s MV Pressure Half Time 45.9 ms MV Area PHT 4.8 cm MV Deceleration Time 106.0 ms TR Peak Velocity 250.0 cm/s TR Peak Gradient 25.0 mmHg Right Atrial Pressure 10.0 mmHg Pulmonary Artery Systolic Pressu 35.0 mmHg Right Ventricular Systolic Press 35.0 mmHg PV Peak Velocity 103.0 cm/s PV Peak Gradient 4.2 mmHg PV Mean Velocity 65.0 cm/s PV Mean Gradient 2.0 mmHg PV Velocity Time Integral 15.4 cm LV E' Lateral Velocity 2.9 cm/s Mitral E to LV E' Lateral Ratio 39.7 LV E' Septal Velocity 4.4 cm/s Mitral E to LV E' Septal Ratio 26.4
[2016-06-12 15:31] LABS: PTT 48 SEC (25-37)
[2016-06-12 15:41] VITALS: BP 104/62
--- NOTE | 2016-06-12 15:55 | ULTRASOUND REPORT ---
EXAMINATION: US RETROPERITONEAL COMPLETE (RENAL) CLINICAL INFORMATION: Anuria. Evaluate for renal obstruction.. COMPARISON: None TECHNIQUE: Real-time imaging of the kidneys and bladder. FINDINGS: RIGHT KIDNEY: 11.5 x 5 x 5.8 cm (SAG x AP x TRV). The kidney has normal cortical thickness and echotexture. No hydronephrosis or nephrolithiasis. A 1.7 x 2.5 x 2.2 cm simple peripelvic cyst is present within the lower pole. LEFT KIDNEY: The left kidney could not be evaluated. The clinical technologist reports that the patient was uncooperative and was pushing the clinical technologist's hand/probe away from the body. BLADDER: Urinary bladder contains a Telles catheter. The bladder is underdistended and contains approximately 11 mL of fluid. No evidence of bladder calculi or diverticula. IMPRESSION: 1. No evidence of right-sided nephrolithiasis or urinary tract obstruction. 2. Left kidney cannot be evaluated due to lack of patient cooperation. 3. Urinary bladder is decompressed by a Telles catheter.
--- NOTE | 2016-06-12 16:28 | Event Note ---
Event Note Event Note: I called POA Mr. Alejo David and explained the situation regarding the possible PE and low urine output. I reported that we can continue the current management for now. POKirill is in agreement
[2016-06-12 23:09] LABS: PTT 51 SEC (25-37)
[2016-06-13 00:07] VITALS: BP 110/70
--- NOTE | 2016-06-13 07:28 | PN- Housestaff ---
Subjective Follow-up For: Elevated troponins Bilateral DVT Possible pulmonary embolism Acute kidney injury Leukocytosis Tachycardia Complaints: pain scale (0-10) Tele-Events Since Last Visit: Patient is in sinus tachycardia throughout the night. Rate 136-138. Bundle branch block. No other events noticed Subjective: Patient seen and examined this morning. He is alert, awake and oriented to time place and person. No acute events noticed overnight. Patient denies any chest pain, racing of heart, difficulty breathing, cough. Denies bilateral calf pain or tenderness, swelling. Denies any headache, abdominal pain, nausea, vomiting, change in bowel habits. Denies dizziness or lightheadedness. Still tachycardic. He is afebrile, heart rate of 138, blood pressure 110/70, respiratory rate 20, saturating at 95% on 2 L. He was on BiPAP overnight. Urine output 950 mL for 24 hours Review of Systems Constitutional: Denies: no symptoms. Objective Last 24 Hrs of Vital Signs/I&O Vital Signs Date Time Temp Pulse Resp B/P B/P Pulse O2 O2 Flow FiO2 Mean Ox Delivery Rate 06/13 1057 Nasal 2.0L Cannula 06/13 0901 138 104/60 06/13 0825 98 Nasal 2.0L Cannula 06/13 0800 BIPAP 3.0L 06/13 0800 96.9 138 22 104/60 96 BIPAP 06/13 0340 138 104/60 06/13 0056 138 98 06/13 0007 97.7 140 20 110/70 95 BIPAP 06/13 0000 BIPAP 3.0L 06/12 2233 138 98 06/12 1639 98 Nasal 2.0L Cannula 06/12 1541 98.2 136 20 104/62 94 Nasal 3.0L Cannula Intake & Output 06/13 1600 06/13 0800 06/13 0000 Intake Total 600 797.3 Output Total 300 450 Balance 300 347.3 Intake, IV 600 557.3 Intake, Oral 240 Output, Urine 300 450 Physical Exam General Appearance: Alert, Oriented X3, Cooperative, No Acute Distress Skin: No Rashes, No Breakdown HEENT: Atraumatic, PERRLA, EOMI, Mucous Membr. moist/pink Neck: Supple, No JVD Cardiovascular: Regular Rate, Normal S1, Normal S2, No Murmurs Lungs: Clear to Auscultation, Normal Air Movement Abdomen: Normal Bowel Sounds, Soft Neurological: Strength at 5/5 X4 Ext Extremities: No Clubbing, No Cyanosis, No Edema, Normal Pulses Vascular: Pulses Symmetrical Current Medications: Current Medications Sig/Amadeo Start time Last Medication Dose Route Stop Time Status Admin Albuterol Sulfate 3 ML EVERY 4 HRS/AWAKE 06/11 2000 AC 06/13 INH 1152 Apixaban 10 MG BID 06/13 1345 UNVr PO Atorvastatin Calcium 40 MG 1700 06/11 1700 AC 06/12 PO 1716 Carvedilol 3.125 MG BID 06/13 0339 AC 06/13 PO 0901 Ceftazidime 1,000 MG Q8H 06/11 0100 AC 06/13 IV 0854 Furosemide 40 MG .STK-MED ONE 06/12 1716 DC IV 06/12 1717 Furosemide 10 MG ONCE ONE 06/12 1645 DC 06/12 IV 06/12 1646 1716 Heparin Sodium 7,600 UNIT ONCE ONE 06/13 1015 DC 06/13 (Porcine) IV 06/13 1016 0950 Heparin Sodium 25,000 UNIT Q24H 06/12 1115 AC 06/12 (Porcine) IV 1551 Sodium Chloride 500 ML Insulin Aspart 0 TIDAC 06/11 0800 AC 06/13 SC 1235 Insulin Detemir 8 UNITS BID 06/11 1000 AC 06/13 SC 0901 Ipratropium [place] 2.5 ML Q4 HRS NEEDED PRN 06/12 1130 AC 06/12 INH 2001 Lactobacillus 1 CAP DAILY 06/13 1129 AC 06/13 Acidophilus PO 1238 Magnesium Sulfate 1 GM Q2H 06/12 1045 DC 06/12 Dextrose/Water 100 ML IV 06/12 1444 1634 Methylprednisolone 40 MG Q12 06/11 1325 DC 06/13 IV 0901 Potassium Chloride 20 MEQ Q13H 06/10 2315 DC 06/12 Sodium Chloride 1,000 ML IV 1556 Prednisone 10 MG DAILY 06/20 1000 AC PO 06/22 0959 Prednisone 20 MG DAILY 06/18 1000 AC PO 06/20 0959 Prednisone 30 MG DAILY 06/16 1000 AC PO 06/18 0959 Prednisone 40 MG DAILY 06/14 1000 CAN PO 06/22 0959 Prednisone 40 MG DAILY 06/14 1000 AC PO 06/16 0959 Sodium Chloride 1,000 ML Q13H 06/12 1915 AC 06/13 IV 0721 Tiotropium [place] 1 PUF DAILY 06/11 1000 AC 06/13 INH 0901 Vancomycin HCl 1,500 MG DAILY 06/11 1000 AC 06/12 Sodium Chloride 500 ML IV 1109 Last 24 Hrs of Lab/Sum[place] Results Last 24 Hrs of Labs/Mics: Laboratory Tests 06/13/16 0600: Anion Gap 9, Estimated GFR 49 L, BUN/Creatinine Ratio 15.7, APTT 37, CBC w Diff MAN DIFF ORDERED, RBC 3.05 L, MCV 86.8, MCH 27.3, RDW 17.3 H, MPV 8.6, Gran % 93.6 H, Lymphocytes % 3.9 L, Monocytes % 2.4, Eosinophils % 0.1, Basophils % 0 L, Absolute Granulocytes 22.1 H, Absolute Lymphocytes 0.9 L, Absolute Monocytes 0.6, Absolute Eosinophils 0, Absolute Basophils 0, Platelet Estimate VERIFIED BY SMEAR, Polychromasia 1+, Poikilocytosis 1+, Anisocytosis 1+, Ovalocytes 1+, PUBS MCHC 31.4 L 06/12/16 2100: APTT 51 H 06/12/16 1620: Anion Gap 11, Estimated GFR 54 L, BUN/Creatinine Ratio 15.4 Microbiology 06/13 1343 LOWER RESP: Respiratory Culture - ORD 06/13 134 LOWER RESP: Gram Stain - ORD Assessment/Plan Assessment: 76-year-old gentleman who resides at [facility] brought in for lethargy and confusion. PMH type 2 diabetes, CAD S/P CABG, COPD on 2 LNC, HFrEF of 50% on , stage I diastolic dysfunction, RVSP 42mmHg, CVA, cpap on nocturnal bipaP, stage III cKD, HTN, recent admissions for CHF/COPD exacerbation in June 2015, March 2016. VS on admission: BP 1 02/24/1951, HR 140, RR 22, SPO2 99% on 3L NC, T 98.9 Pertinent labs on admission: WBC 21.9, 6% bandemia, H&H 9.1/28.6, d-dimer 3641, potassium 3.3, BUN/CR 16/1.5 Serial troponins: 0.29, 0.45, 0.48 AB.36/60/89/34/96% on 3.5 L NC Problem list: 1. Elevated troponins: Likely type II 2. SIRS criteria 3. Persistent tachycardia 4. Hypokalemia 5. Elevated d-dimer 6. Lethargy/AMS 7. Diabetes 8. JUANITO on CPAP #Elevated troponins: * Likely due to PE * No evidence of ST-T elevations on serial EKGs, * troponin trended down * Follow-up with cardio #Persistent tachycardia Patient remained in persistent tachycardia throughout the night. He is in sinus tachycardia rate between 130-140.Venous Doppler bilateral extremities showed bilateral DVT. Tachycardia possibly from pulmonary embolism. * Presumably patient has PE, no right heart strain * Patient was on IV heparin drip. However we started him on apixaban today. * apixaban 10mg twice a day for 7 days and then 5 mg twice a day * Will stop IV heparin drip once patient is his first dose of eliqus * Family was notified about the change. Agreed with the plan. # Diabetes Accu-Cheks And insulin sliding scale Levemir #JUANITO on CPAP * We'll continue biPAP and assess for respiratory improvement . * Pulmonology recommendations followed * Continuing vancomycin and ceftaz for possible HCAP Systolic congestive heart failure Patient has history of congestive heart failure with ejection fraction 40%. Crystallographer was contacted Follow the recommendations Patient blood pressure is borderline DNR/DNI, diabetic diet, eliqus for DVT prophylaxis. Problem List: 1. ACUTE RENAL FAILURE 2. COPD 3. Dyslipidemia 4. Diabetes mellitus 5. Elevated troponin 6. Renal insufficiency 7. Elevated d-dimer 8. Tachycardia Pain Ratin Pain Location: none Pain Goal: Remain pain free Pain Plan: none Tomorrow's Labs & Rationales: CBC to monitor WBC count BEP to monitor creatinine. Consulting Request: Consulting Specialty: Cardiology
[2016-06-13 07:59] LABS: ABSOLUTE BASOPHIL COUNT 0 /CUMM (0.0-0.2); ABSOLUTE EOSINOPHIL COUNT 0 /CUMM (0.0-0.7); ABSOLUTE GRANULOCYTE CT 22.1 /CUMM (1.4-6.5); ABSOLUTE LYMPH COUNT 0.9 /CUMM (1.2-3.4); ABSOLUTE MONOCYTE COUNT 0.6 /CUMM (0.10-0.60); BASOPHIL % 0 % (0.0-2.0); EOSINOPHIL % 0.1 % (0-5); GRANULOCYTE % 93.6 % (42.2-75.2); HEMATOCRIT 26.5 % (42-52); MEAN CORPUSCULAR HGB 27.3 PG (27.0-31.0); MEAN CORPUSCULAR HGB CONC 31.4 G/DL (33.0-37.0); MEAN CORPUSCULAR VOLUME 86.8 FL (80.0-94.0); MEAN PLATELET VOLUME 8.6 FL (7.4-10.4); PLATELET COUNT 386 /CUMM (130-400); RBC DISTRIBUTION WIDTH 17.3 % (11.5-14.5); RED BLOOD CELL CT 3.05 /CUMM (4.70-6.10)
[2016-06-13 08:00] VITALS: BP 104/60
[2016-06-13 08:27] LABS: PTT 37 SEC (25-37)
[2016-06-13 08:38] LABS: WHITE BLOOD CELL COUNT 23.6 /CUMM (4.8-10.8)
--- NOTE | 2016-06-13 10:29 | PN- Pulmonary ---
Subjective HPI/Critical Care Issues: pt seen and examined pursed lipped breathing bilateral dvt noted on a/c Objective Current Medications: Current Medications Sig/Amadeo Start time Last Medication Dose Route Stop Time Status Admin Albuterol Sulfate 3 ML EVERY 4 HRS/AWAKE 06/12 1999 AC 06/13 INH 0822 Atorvastatin Calcium 40 MG 1700 06/11 1700 AC 06/12 PO 1716 Carvedilol 3.125 MG BID 06/13 0339 AC 06/13 PO 0901 Ceftazidime 1,000 MG Q8H 06/11 0100 AC 06/13 IV 0854 Furosemide 40 MG .STK-MED ONE 06/12 1716 DC IV 06/12 1717 Furosemide 10 MG ONCE ONE 06/12 1645 DC 06/12 IV 06/12 1646 1716 Heparin Sodium 7,600 UNIT ONCE ONE 06/13 1015 DC (Porcine) IV 06/13 1016 Heparin Sodium 25,000 UNIT Q24H 06/12 1115 AC 06/12 (Porcine) IV 1551 Sodium Chloride 500 ML Heparin Sodium 25,000 UNIT Q24H 06/11 0045 DC 06/12 (Porcine) IV 0011 Sodium Chloride 500 ML Insulin Aspart 0 TIDAC 06/11 0800 AC 06/13 SC 0854 Insulin Detemir 8 UNITS BID 06/11 1000 AC 06/13 SC 0901 Ipratropium [place] 2.5 ML Q4 HRS NEEDED PRN 06/12 1130 AC 06/12 INH 2001 Magnesium Sulfate 1 GM Q2H 06/12 1045 DC 06/12 Dextrose/Water 100 ML IV 06/12 1444 1634 Methylprednisolone 40 MG Q12 06/11 1325 AC 06/13 IV 0901 Potassium Chloride 20 MEQ Q13H 06/10 2315 DC 06/12 Sodium Chloride 1,000 ML IV 1556 Sodium Chloride 1,000 ML Q13H 06/12 1915 AC 06/13 IV 0721 Sodium Chloride 250 ML BOLUS ONE 06/12 1045 DC 06/12 IV 06/12 1144 1326 Tiotropium [place] 1 PUF DAILY 06/11 1000 AC 06/13 INH 0901 Vancomycin HCl 1,500 MG DAILY 06/11 1000 AC 06/12 Sodium Chloride 500 ML IV 1109 Vital Signs & I&O Last 24 Hrs of Vitals and I&O: Vital Signs Date Time Temp Pulse Resp B/P B/P Pulse O2 O2 Flow FiO2 Mean Ox Delivery Rate 06/13 0901 138 104/60 06/13 0825 98 Nasal 2.0L Cannula 06/13 0800 BIPAP 3.0L 06/13 0800 96.9 138 22 104/60 96 BIPAP 06/13 0340 138 104/60 06/13 0056 138 98 06/13 0007 97.7 140 20 110/70 95 BIPAP 06/13 0000 BIPAP 3.0L 06/12 2233 138 98 06/12 1639 98 Nasal 2.0L Cannula 06/12 1541 98.2 136 20 104/62 94 Nasal 3.0L Cannula 06/12 1136 93 Nasal 2.0L Cannula Intake & Output 06/13 1600 06/13 0800 06/13 0000 Intake Total 600 797.3 Output Total 300 450 Balance 300 347.3 Intake, IV 600 557.3 Intake, Oral 240 Output, Urine 300 450 Exam Other Physical Findings: gen awake and alert heent ncat cvs s1, s2 lungs wheezing mainly on left abd soft bs+ ext 1+ edema Results Last 24 Hrs of Lab Results: Laboratory Tests 06/13/16 0600: Anion Gap 9, Estimated GFR 49 L, BUN/Creatinine Ratio 15.7, APTT 37, CBC w Diff MAN DIFF ORDERED, RBC 3.05 L, MCV 86.8, MCH 27.3, RDW 17.3 H, MPV 8.6, Gran % 93.6 H, Lymphocytes % 3.9 L, Monocytes % 2.4, Eosinophils % 0.1, Basophils % 0 L, Absolute Granulocytes 22.1 H, Absolute Lymphocytes 0.9 L, Absolute Monocytes 0.6, Absolute Eosinophils 0, Absolute Basophils 0, Platelet Estimate VERIFIED BY SMEAR, Polychromasia 1+, Poikilocytosis 1+, Anisocytosis 1+, Ovalocytes 1+, PUBS MCHC 31.4 L 06/12/16 2100: APTT 51 H 06/12/16 1620: Anion Gap 11, Estimated GFR 54 L, BUN/Creatinine Ratio 15.4 06/12/16 1230: APTT 48 H Impression/Plan Impression/Plan Impression/Plan: Impression 76 year old man * improved hypercarbic and hypoxemic respiratory failure secondary to underlying CHF * COPD is chornic and appears compensated, however we are treating for a possible mild exacerbation that can be due to fluid overload and underlying atelectasis * leukocytosis possibly steroid related, however we are treating for a possible HCAP * partially occlussive bilateral LE DVTs 06/12 Plan - heparin protocol - VTE dosing, pt has had gi bleeding previously, would not benefit from NOACs, would be safest to pursue tx with coumadin senior living, this new finding obviates the need for a CT, can presume a high likelihood of a pulmonary embolism - VTE therapy remains the same, would consider repeat ECHO to evaluate right sided function, please alert cardiology - trc/nebs - sputum cx - cont abx - bipap to reduce work of breathing as needed and nocturnal - goals of care discussion with family - dc solumedrol, begin prednisone 40mg with a taper by 10mg every 2 days - diuresis, f/u ins/outs, daily weights - f/u cardiology recommendations DVT prophylaxis at all times
--- NOTE | 2016-06-13 11:59 | NUR ---
0800 INFORMED HOSPITAL INSURANCE CLERK SULEMAN SINCLAIR THAT PT ONLY HAD 1 IV ACCESS AND HE CURRENTLY HAS HEPARIN GTT AND FLUIDS RUNNING THROUGH THAT. PT IS DUE TO GET IV ABX VANCOMYCIN AT 10AM BUT I CANNOT STOP THE HEPARIN GTT FOR 2 HOURS TO GIVE THE ABX. HOT STRIP MILL INSPECTOR NURSES AND FOIL OPERATOR GAYLA OTT TRIED TO ATTEMPT A SECOND LINE WITH NO SUCCESS. INFORMED DRS DURING ROUNDS TODAY ABOUT THE IV ACCESS AND THEY WILL LOOK INTO IT.
--- NOTE | 2016-06-13 15:56 | PN- Att Addend ---
Attending MD Review Statement Attending Statement Attending MD Statement: examined this patient, discuss w/resident/PA/SPORTS FITNESS AND WELLNESS DIRECTOR, agreed w/resident/PA/SPORTS FITNESS AND WELLNESS DIRECTOR, reviewed EMR data (avail), discussed w/nursing, discussed w/ case mgmt Attending Assessment/Plan: Laboratory Tests 06/13/16 1455: APTT Pending 06/13/16 0600: Anion Gap 9, Estimated GFR 49 L, BUN/Creatinine Ratio 15.7, APTT 37, CBC w Diff MAN DIFF ORDERED, RBC 3.05 L, MCV 86.8, MCH 27.3, RDW 17.3 H, MPV 8.6, Gran % 93.6 H, Lymphocytes % 3.9 L, Monocytes % 2.4, Eosinophils % 0.1, Basophils % 0 L, Absolute Granulocytes 22.1 H, Absolute Lymphocytes 0.9 L, Absolute Monocytes 0.6, Absolute Eosinophils 0, Absolute Basophils 0, Platelet Estimate VERIFIED BY SMEAR, Polychromasia 1+, Poikilocytosis 1+, Anisocytosis 1+, Ovalocytes 1+, PUBS MCHC 31.4 L 06/12/16 2100: APTT 51 H 06/12/16 1620: Anion Gap 11, Estimated GFR 54 L, BUN/Creatinine Ratio 15.4 Vital Signs Date Time Temp Pulse Resp B/P B/P Pulse O2 O2 Flow FiO2 Mean Ox Delivery Rate 06/13 1057 Nasal 2.0L Cannula 06/13 0901 138 104/60 06/13 0825 98 Nasal 2.0L Cannula 06/13 0800 BIPAP 3.0L 06/13 0800 96.9 138 22 104/60 96 BIPAP 06/13 0340 138 104/60 06/13 0056 138 98 06/13 0007 97.7 140 20 110/70 95 BIPAP 06/13 0000 BIPAP 3.0L 06/12 2233 138 98 06/12 1639 98 Nasal 2.0L Cannula Patient seen and examined at bedside. Discussed with patient the care plan. 76 -year-old male brought in from [place] who presented to the emergency room for lethargic and confusion. He has significant past medical history of type 2 diabetes mellitus, coronary artery disease status post CABG, COPD on home oxygen with 2 L, CHF systolic obstructive sleep apnea on CPAP, CK D stage III, hypertension, CVA. Patient during the hospital course on Doppler was found to have bilateral DVT and was started on IV heparin drip and for healthcare associated pneumonia and was started on Vanco and ceftazidime. Bilateral DVT with tachycardia-currently patient is on heparin drip but we are changing him to Eliquis as patient has issues with IV access and has only one IV access. Patient may have possible pulmonary embolism which may be causing his tachycardia so we are get a VQ scan. Healthcare associated pneumonia -we'll continue with Vanco and ceftazidime for now. Leukocytosis could be likely secondary to IV steroids. We will switch his steroids to by mouth from tomorrow morning. And monitor his white count. Also started on probiotics. Chronic kidney disease-creatinine today is 1.4 and stable we will monitor it closely
[2016-06-13 16:08] VITALS: BP 98/62
[2016-06-13 16:35] LABS: PTT > 120 SEC (25-37)
--- NOTE | 2016-06-13 17:38 | NUCLEAR MEDICINE REPORT ---
EXAMINATION: PULMONARY VENTILATION PERFUSION STUDY CLINICAL INFORMATION: Tachycardia, DVT bilateral legs. COMPARISON: No previous lung scan is available for comparison. A radiograph of the chest dated 06/10/2016 is available for comparison. TECHNIQUE: Serial gamma scintillation camera images were obtained over the posterior chest during the single breath, equilibrium rebreathing and washout of 10.1 mCi Xe 133 gas. The patient then received 4.3 mCi Tc-99m MAA intravenously and a 6-view perfusion study was performed. FINDINGS: Ventilation images: On the single breath and equilibrium images there is diffusely decreased activity in the left lung and this is most prominent in the left mid lung field and laterally in the left lower lobe. Minimal heterogeneity is present in the right lung, most prominently medially at the right lung base.. During the washout phase there is mildly to moderately prolonged retention bilaterally but this is slightly more severe on the left. Perfusion images: No segmental perfusion defects are present. There is a diffuse decrease in activity in the left lung and this is more prominent in the left mid lung field and laterally at the left lung base. A nonsegmental perfusion abnormality medially at the right lung base is present and is well matched to ventilatory abnormality in this region. The ventilation and perfusion images are very well matched. The most recent chest radiograph dated 06/10/2016 shows opacity at the left lung base and atelectasis at the right lung base. IMPRESSION: Very low probability of pulmonary embolism.
--- NOTE | 2016-06-13 19:51 | PN- Cardiology ---
Subjective Subjective: Events of the weekend were reviewed. At present, Mr. David appears to be resting comfortably and is without complaints. He specifically denies any chest discomfort, palpitations, shortness of breath, etc. Objective Vital Signs and I&Os Vital Signs Date Time Temp Pulse Resp B/P B/P Pulse O2 O2 Flow FiO2 Mean Ox Delivery Rate 06/13 1610 98 Nasal 2.0L Cannula 06/13 1608 97.9 142 22 98/62 96 Nasal Cannula 06/13 1057 Nasal 2.0L Cannula 06/13 0901 138 104/60 06/13 0825 98 Nasal 2.0L Cannula 06/13 0800 BIPAP 3.0L 06/13 0800 96.9 138 22 104/60 96 BIPAP 06/13 0340 138 10460 06/13 0056 138 98 06/13 0007 97.7 140 20 110/70 95 BIPAP 06/13 0000 BIPAP 3.0L 06/12 2233 138 98 Intake & Output 06/13 1600 06/13 0800 06/13 0000 06/12 1600 06/12 0000 Intake Total 1457.5 600 797.3 1689 888 840.5 Output Total 250 300 450 100 100 100 Balance 1207.5 300 347.3 1589 788 740.5 Intake, IV 857.5 600 557.3 969 768 720.5 Intake, Oral 600 240 720 120 120 Number 1 Bowel Movements Output, Urine 250 300 450 100 100 100 Patient 224 lb Weight Physical Exam: Well-developed, morbidly obese elderly male in no acute distress with nasal oxygen in place. Vital signs: See above. Neck: No JVD or bruits. Lungs: Occasional rhonchi. Heart: S1, S2 with no murmur, gallop, or rub appreciated. PMI not well felt. Abdomen: Soft, nontender, positive bowel sounds. Extremities: No edema. Current Medications: Current Medications Sig/Amadeo Start time Last Medication Dose Route Stop Time Status Admin Albuterol Sulfate 3 ML EVERY 4 HRS/AWAKE 06/12 1999 AC 06/13 INH 1610 Apixaban 10 MG BID 06/13 1600 AC 06/13 PO 06/19 220 161 Atorvastatin Calcium 40 MG 1700 06/11 1700 AC 06/13 PO 161 Carvedilol 3.125 MG BID 06/13 0339 AC 06/13 PO 0901 Ceftazidime 1,000 MG Q8H 06/11 0100 AC 06/13 IV 1617 Heparin Sodium 7,600 UNIT ONCE ONE 06/13 1015 DC 06/13 (Porcine) IV 06/13 1016 0950 Heparin Sodium 10,000 UNIT .STK[facility] ONE 06/13 0927 DC (Porcine) IV 06/13 0928 Heparin Sodium 25,000 UNIT Q24H 06/12 1115 DC 06/12 (Porcine) IV 06/13 1600 1551 Sodium Chloride 500 ML Insulin Aspart 0 TIDAC 06/11 0800 AC 06/13 SC 1809 Insulin Detemir 8 UNITS BID 06/11 1000 AC 06/13 SC 0901 Ipratropium [place] 2.5 ML Q4 HRS NEEDED PRN 06/12 1130 AC 06/12 INH 2001 Lactobacillus 1 CAP DAILY 06/13 1129 AC 06/13 Acidophilus PO 1238 Methylprednisolone 40 MG Q12 06/11 1325 DC 06/13 IV 0901 Patient Medication 1 ED .K-MED ONE 06/13 1411 [place] Teaching ED 06/13 1412 Prednisone 10 MG DAILY 06/20 1000 AC PO 06/22 0959 Prednisone 20 MG DAILY 06/18 1000 AC PO 06/20 0959 Prednisone 30 MG DAILY 06/16 1000 AC PO 06/18 0959 Prednisone 40 MG DAILY 06/14 1000 CAN PO 06/22 0959 Prednisone 40 MG DAILY 06/14 1000 AC PO 06/16 0959 Sodium Chloride 1,000 ML Q13H 06/12 1915 AC 06/13 IV 0721 Tiotropium [place] 1 PUF DAILY 06/11 1000 AC 06/13 INH 0901 Vancomycin HCl 1,500 MG DAILY 06/11 1000 AC 06/13 Sodium Chloride 500 ML IV 1803 Results Last 48 Hrs of Labs/Mics: Laboratory Tests 06/13/16 1455: APTT > 120 *H 06/13/16 0600: Anion Gap 9, Estimated GFR 49 L, BUN/Creatinine Ratio 15.7, APTT 37, CBC w Diff MAN DIFF ORDERED, RBC 3.05 L, MCV 86.8, MCH 27.3, RDW 17.3 H, MPV 8.6, Gran % 93.6 H, Lymphocytes % 3.9 L, Monocytes % 2.4, Eosinophils % 0.1, Basophils % 0 L, Absolute Granulocytes 22.1 H, Absolute Lymphocytes 0.9 L, Absolute Monocytes 0.6, Absolute Eosinophils 0, Absolute Basophils 0, Platelet Estimate VERIFIED BY SMEAR, Polychromasia 1+, Poikilocytosis 1+, Anisocytosis 1+, Ovalocytes 1+, PUBS MCHC 31.4 L 06/12/16 2100: APTT 51 H 06/12/16 1620: Anion Gap 11, Estimated GFR 54 L, BUN/Creatinine Ratio 15.4 06/12/16 1230: APTT 48 H 06/12/16 0515: Anion Gap 10, Estimated GFR 54 L, BUN/Creatinine Ratio 16.2, Phosphorus 4.4, Magnesium 1.5 L, APTT 103 *H, CBC w Diff NO MAN DIFF REQ, RBC 3.40 L, MCV 86.9 , MCH 27.1, RDW 17.7 H, MPV 8.8, Gran % 91.2 H, Lymphocytes % 8.2 L, Monocytes % 0.5 L, Eosinophils % 0, Basophils % 0.1, Absolute Granulocytes 12.7 H, Absolute Lymphocytes 1.1 L, Absolute Monocytes 0.1 L, Absolute Eosinophils 0, Absolute Basophils 0, PUBS MCHC 31.2 L 06/11/16 2200: Anion Gap 9, Estimated GFR 59 L, BUN/Creatinine Ratio 15.0 06/11/16 2105: APTT 25 Recent Imaging Studies: Echocardiogram (06/12/2016): Normal LV chamber size with mild to moderate concentric LVH. The LVEF is 40%. There is mild global hypokinesis. Borderline dilated right ventricular chamber size with grossly normal function. Mildly calcified mitral valvular leaflets and annulus. It is adequate leaflet opening. There is mild to moderate mitral regurgitation. Moderately calcified, trileaflet aortic valve with possible fusion between the left and right coronary leaflets. There is no significant aortic stenosis. There is trace to mild aortic insufficiency. Grossly normal appearing tricuspid valvular leaflets with mild tricuspid regurgitation. Estimated RV systolic pressure is 35 mmHg. Assessment/Plan Assessment/Plan 76-year-old morbidly obese male with a history of former heavy tobacco use, COPD on home oxygen with previous exacerbations, obesity hyperventilation syndrome, JUANITO on CPAP, previous stroke, CKD, chronic anemia, HTN, HLD, DM, and CAD (s/p NJ's by ECG/LV systolic dysfunction with previous HF s/p CABG 2010 at [facility] who presented via ambulance from his ECF ([facility]) with AMS, hypercarbic and hypoxemic respiratory failure secondary to HF, +/-mild COPD exacerbation who was additionally found to have partially occlusive bilateral LE DVTs for which anticoagulation was initiated at VTE dosing. Recommendations: * Continue on telemetry. * Agree with pulmonary medicine, that given his history of previous GI bleeding, warfarin preferable to NOACs. * Continue oxygen, TRC, steroids, antimicrobial therapy, as per pulmonary medicine. * Fortunately, no evidence of significant pulmonary hypertension, RV strain, etc. by echocardiography. * Check all stools for occult blood. * Given known CAD would maintain hemoglobin at or above 8.0 g/dl. Continue telemetry? Yes
--- NOTE | 2016-06-13 21:21 | ULTRASOUND REPORT ---
EXAMINATION: EXAMINATION: DUPLEX DOPPLER UPPER EXTREMITY, right CLINICAL INFORMATION: Edema. Swelling. History of DVT . Swelling right lower arm below the IV site. COMPARISON: None. TECHNIQUE: Duplex Doppler performed of right upper extremity deep veins with grayscale, color Doppler and spectral Doppler examination. FINDINGS: There is occlusive thrombus in the right subclavian vein extending into the axillary vein in the proximal basilic vein. The thrombus extends to the mid brachial vein. The cephalic vein remains patent. The veins in the forearm are patent. Specific imaging was performed over the upper forearm area in the region of redness. No abscess or focal fluid collection. IMPRESSION: Occlusive deep vein thrombosis. This critical result was discussed with Dr. Martins on 06/13/2016, 9:17 PM and it was ascertained that the content and urgency of the report was understood at the time of direct communication.
[2016-06-13 23:58] VITALS: BP 98/66
--- NOTE | 2016-06-14 07:14 | PN- Housestaff ---
Subjective Follow-up For: Elevated troponins Bilateral DVT Possible pulmonary embolism Acute kidney injury Leukocytosis Tachycardia Complaints: no complaints Tele-Events Since Last Visit: sinus tachycardia, hr 142-144 over night, no other event Subjective: I followed up and examined the patinet today. He is resting comfortably in his bed, and offers no complaints. He used BiPAP overnight. Vitals tachycardia, otherweise stable. No overnight issues. His blood sugar this AM was 400. Heparin IV changed to Apixaban. Review of Systems Constitutional: Reports: no symptoms. Objective Last 24 Hrs of Vital Signs/I&O Vital Signs Date Time Temp Pulse Resp B/P B/P Pulse O2 O2 Flow FiO2 Mean Ox Delivery Rate 06/14 0804 95 Nasal 2.0L Cannula 06/14 0801 97 Nasal 2.0L Cannula 06/14 0800 97.0 144 20 100/60 97 Nasal 2.0L Cannula 06/14 0624 142 97 06/14 0438 142 06/14 0137 14 96 06/14 0000 Nasal 2.0L Cannula 06/13 2358 97.7 142 24 98/66 97 BIPAP 06/13 2205 140 97 06/13 2058 141 06/13 1610 98 Nasal 2.0L Cannula 06/13 1608 97.9 142 22 98/62 96 Nasal Cannula 06/13 1057 Nasal 2.0L Cannula Intake & Output 06/14 1600 06/14 0800 06/14 0000 Intake Total 620 1510.2 Output Total 225 250 Balance 395 1260.2 Intake, IV 600 1160.2 Intake, Oral 20 350 Output, Urine 225 250 Physical Exam General Appearance: Alert, Oriented X3, Cooperative, Mild Distress, requiring additional oxygen via NC, obese Other Physical Findings: Skin: No Rashes, No Breakdown HEENT: Atraumatic, PERRLA, EOMI, Mucous Membr. moist/pink Neck: Supple, No JVD Cardiovascular: Regular Rate, Normal S1, Normal S2, No Murmurs Lungs: Clear to Auscultation, Normal Air Movement Abdomen: Normal Bowel Sounds, Soft Neurological: Strength at 5/5 X4 Ext Extremities: No Clubbing, No Cyanosis, No Edema, Normal Pulses Vascular: Pulses Symmetrical Current Medications: Current Medications Sig/Amadeo Start time Last Medication Dose Route Stop Time Status Admin Albuterol Sulfate 3 ML EVERY 4 HRS/AWAKE 06/12 1999 AC 06/14 INH 0758 Apixaban 10 MG BID 06/13 1600 AC 06/14 PO 06/19 2201 0926 Atorvastatin Calcium 40 MG 1700 06/11 1700 AC 06/14 PO 1611 Carvedilol 6.25 MG BID 06/14 1000 AC 06/14 PO 0928 Carvedilol 3.125 MG BID 06/13 0339 DC 06/13 PO 2058 Ceftazidime 1,000 MG Q8H 06/11 0100 AC 06/14 IV 1611 Furosemide 10 MG ONCE ONE 06/14 1330 DC 06/14 IV 06/14 1331 1334 Insulin Aspart 0 TIDAC 06/11 0800 AC 06/14 SC 1652 Insulin Detemir 10 UNITS BID 06/14 1000 AC 06/14 SC 0926 Insulin Detemir 8 UNITS BID 06/11 1000 DC 06/13 SC 2058 Ipratropium [place] 2.5 ML Q4 HRS NEEDED PRN 06/12 1130 AC 06/14 INH 1628 Lactobacillus 1 CAP DAILY 06/13 1129 AC 06/14 Acidophilus PO 0927 Omeprazole 40 MG BID 06/14 1000 AC 06/14 PO 1115 Patient Medication 1 ED .STK-MED ONE 06/14 1350 [place] Teaching ED 06/14 1351 Prednisone 10 MG DAILY 06/20 1000 AC PO 06/22 0959 Prednisone 20 MG DAILY 06/18 1000 AC PO 06/20 0959 Prednisone 30 MG DAILY 06/16 1000 AC PO 06/18 0959 Prednisone 40 MG DAILY 06/14 1000 AC 06/14 PO 06/16 0959 0926 Sodium Chloride 1,000 ML Q13H 06/12 1915 AC 06/14 IV 0940 Tiotropium [place] 1 PUF DAILY 06/11 1000 AC 06/14 INH 0926 Vancomycin HCl 1,500 MG DAILY 06/11 1000 AC 06/14 Sodium Chloride 500 ML IV 1011 Last 24 Hrs of Lab/[place] Results Last 24 Hrs of Labs/Mics: Laboratory Tests 06/14/16 0845: Anion Gap 8, Estimated GFR 49 L, BUN/Creatinine Ratio 18.6, Magnesium 2.1, CBC w Diff MAN DIFF ORDERED, RBC 3.03 L, MCV 86.5, MCH 27.6, RDW 17.8 H, MPV 8.2, Gran % 88.7 H, Lymphocytes % 5.5 L, Monocytes % 5.8, Eosinophils % 0, Basophils % 0 L, Absolute Granulocytes 19.7 H, Absolute Lymphocytes 1.2, Absolute Monocytes 1.3 H, Absolute Eosinophils 0, Absolute Basophils 0, Platelet Estimate VERIFIED BY SMEAR, Polychromasia 1+, Poikilocytosis 1+, Basophilic Stippling SLIGHT, Anisocytosis 1+, Ovalocytes 1+, PUBS MCHC 31.9 L Assessment/Plan Assessment: 76-year-old gentleman who resides at [place] brought in for lethargy and confusion. PMH type 2 diabetes, CAD S/P CABG, COPD on 2 LNC, HFrEF of 50% on , stage I diastolic dysfunction, RVSP 42mmHg, CVA, cpap on nocturnal bipaP, stage III cKD, HTN, recent admissions for CHF/COPD exacerbation in June 2015, March 2016. Problem list: 1. Elevated troponins: Likely type II 2. SIRS 3. Persistent tachycardia 4. Hypokalemia 5. DVT of RUE, and B/L lower ext 6. Lethargy/AMS 7. Diabetes 8. JUANITO on CPAP #Elevated troponins: * likely demand ischemia #Persistent tachycardia Patient remained in persistent tachycardia throughout the night. He is in sinus tachycardia rate between 130-140.Venous Doppler bilateral lower extremities and right upper ext shows DVT. * Patient was on IV heparin and is on apixaban * apixaban 10mg twice a day for 7 days and then 5 mg twice a day planned * PE is still a possiblility, given the signs of pulmonary hypertension in the CAT scan of chest done today. (See event note today) * Given his history of GI bleeding, will change to warfarin from tomorrow morning * Family was notified about the change. Agreed with the plan. # Diabetes * Accu-Cheks * Insulin sliding scale * Levemir #JUANITO on CPAP * We'll continue BiPAP and assess for respiratory improvement . * Pulmonology recommendations followed * Continuing vancomycin and ceftaz for possible HCAP for now, checking vancomycin level 1 hour before his next dose in the morning, we'll also discuss about whether or not to continue antibiotics at all given his persistent hypoxia despite being on vancomycin. Systolic congestive heart failure Patient has history of congestive heart failure with ejection fraction 40%. Following Sheet Heater Helper recommendations, increased betablocker today morning, and will monitor. Patient blood pressure is borderline. DNR/DNI, diabetic diet, eliqus for DVT prophylaxis. Problem List: 1. Tachycardia 2. Chronic respiratory failure with hypoxia and hypercapnia 3. DVT (deep venous thrombosis) 4. HFrEF (heart failure with reduced ejection fraction) 5. Renal insufficiency 6. Obesity 7. Diabetes mellitus 8. COPD Pain Ratin Pain Location: - Pain Goal: Pain 4 or less Pain Plan: prn Tomorrow's Labs & Rationales: INR, CBC, BEP, Mg Consulting Request: Consulting Specialty: Cardiology
[2016-06-14 08:00] VITALS: BP 100/60
[2016-06-14 09:09] LABS: ABSOLUTE BASOPHIL COUNT 0 /CUMM (0.0-0.2); ABSOLUTE EOSINOPHIL COUNT 0 /CUMM (0.0-0.7); ABSOLUTE GRANULOCYTE CT 19.7 /CUMM (1.4-6.5); ABSOLUTE LYMPH COUNT 1.2 /CUMM (1.2-3.4); ABSOLUTE MONOCYTE COUNT 1.3 /CUMM (0.10-0.60); BASOPHIL % 0 % (0.0-2.0); EOSINOPHIL % 0 % (0-5); GRANULOCYTE % 88.7 % (42.2-75.2); HEMATOCRIT 26.2 % (42-52); MEAN CORPUSCULAR HGB 27.6 PG (27.0-31.0); MEAN CORPUSCULAR HGB CONC 31.9 G/DL (33.0-37.0); MEAN CORPUSCULAR VOLUME 86.5 FL (80.0-94.0); MEAN PLATELET VOLUME 8.2 FL (7.4-10.4); PLATELET COUNT 388 /CUMM (130-400); RBC DISTRIBUTION WIDTH 17.8 % (11.5-14.5); RED BLOOD CELL CT 3.03 /CUMM (4.70-6.10)
[2016-06-14 09:55] LABS: WHITE BLOOD CELL COUNT 22.2 /CUMM (4.8-10.8)
--- NOTE | 2016-06-14 10:00 | PN- Pulmonary ---
Subjective HPI/Critical Care Issues: Patient seen and examined this morning. Saturating 95% 2 L nasal cannula and uses BiPAP at night. Symptomatically otherwise stable other than his significant tachycardia. Objective Current Medications: Current Medications Sig/Amadeo Start time Last Medication Dose Route Stop Time Status Admin Albuterol Sulfate 3 ML EVERY 4 HRS/AWAKE 06/11 2000 AC 06/14 INH 0758 Apixaban 10 MG BID 06/13 1600 AC 06/14 PO 06/19 2201 0926 Atorvastatin Calcium 40 MG 1700 06/11 1700 AC 06/13 PO 1617 Carvedilol 6.25 MG BID 06/14 1000 AC 06/14 PO 0928 Carvedilol 3.125 MG BID 06/13 0339 DC 06/13 PO 2058 Ceftazidime 1,000 MG Q8H 06/11 0100 AC 06/14 IV 0926 Heparin Sodium 7,600 UNIT ONCE ONE 06/13 1015 DC 06/13 (Porcine) IV 06/13 1016 0950 Heparin Sodium 25,000 UNIT Q24H 06/12 1115 DC 06/12 (Porcine) IV 06/13 1600 1551 Sodium Chloride 500 ML Insulin Aspart 0 TIDAC 06/11 0800 AC 06/14 SC 0925 Insulin Detemir 10 UNITS BID 06/14 1000 AC 06/14 SC 0926 Insulin Detemir 8 UNITS BID 06/11 1000 DC 06/13 SC 2058 Ipratropium [place] 2.5 ML Q4 HRS NEEDED PRN 06/12 1130 AC 06/12 INH 2001 Lactobacillus 1 CAP DAILY 06/13 1129 AC 06/14 Acidophilus PO 0927 Methylprednisolone 40 MG Q12 06/11 1325 DC 06/13 IV 0901 Omeprazole 40 MG BID 06/14 1000 AC PO Patient Medication 1 ED .STK-MED ONE 06/13 1411 [place] Teaching ED 06/13 1412 Prednisone 10 MG DAILY 06/20 1000 AC PO 06/22 0959 Prednisone 20 MG DAILY 06/18 1000 AC PO 06/20 0959 Prednisone 30 MG DAILY 06/16 1000 AC PO 06/18 0959 Prednisone 40 MG DAILY 06/14 1000 CAN PO 06/22 0959 Prednisone 40 MG DAILY 06/14 1000 AC 06/14 PO 06/16 0959 0926 Sodium Chloride 1,000 ML Q13H 06/12 1915 AC 06/14 IV 0940 Tiotropium [place] 1 PUF DAILY 06/11 1000 AC 06/14 INH 0926 Vancomycin HCl 1,500 MG DAILY 06/11 1000 AC 06/13 Sodium Chloride 500 ML IV 1803 Vital Signs & I&O Last 24 Hrs of Vitals and I&O: Vital Signs Date Time Temp Pulse Resp B/P B/P Pulse O2 O2 Flow FiO2 Mean Ox Delivery Rate 06/14 0928 106/64 06/14 0804 95 Nasal 2.0L Cannula 06/14 0801 97 Nasal 2.0L Cannula 06/14 0800 97.0 144 20 100/60 97 Nasal 2.0L Cannula 06/14 0624 142 97 06/14 0438 142 06/14 0137 14 96 06/14 0000 Nasal 2.0L Cannula 06/13 2358 97.7 142 24 98/66 97 BIPAP 06/13 2205 140 97 06/13 2058 141 06/13 1610 98 Nasal 2.0L Cannula 06/13 1608 97.9 142 22 98/62 96 Nasal Cannula 06/13 1057 Nasal 2.0L Cannula Intake & Output 06/14 1600 06/14 0800 06/14 0000 Intake Total 620 1510.2 Output Total 225 250 Balance 395 1260.2 Intake, IV 600 1160.2 Intake, Oral 20 350 Output, Urine 225 250 Exam Other Physical Findings: gen awake and alert heent ncat cvs s1, s2, tachycardia lungs bilateral scattered rhonchi abd soft bs+ ext 1+ edema Results Last 24 Hrs of Lab Results: Laboratory Tests 06/14/16 0845: Anion Gap 8, Estimated GFR 49 L, BUN/Creatinine Ratio 18.6, Magnesium 2.1, CBC w Diff MAN DIFF ORDERED, RBC 3.03 L, MCV 86.5, MCH 27.6, RDW 17.8 H, MPV 8.2, Gran % 88.7 H, Lymphocytes % 5.5 L, Monocytes % 5.8, Eosinophils % 0, Basophils % 0 L, Absolute Granulocytes 19.7 H, Absolute Lymphocytes 1.2, Absolute Monocytes 1.3 H, Absolute Eosinophils 0, Absolute Basophils 0, Platelet Estimate VERIFIED BY SMEAR, Polychromasia 1+, Poikilocytosis 1+, Basophilic Stippling SLIGHT, Anisocytosis 1+, Ovalocytes 1+, PUBS MCHC 31.9 L 06/13/16 1455: APTT > 120 *H Impression/Plan Impression/Plan Impression/Plan: Impression 76 year old man * improved hypercarbic and hypoxemic respiratory failure secondary to underlying CHF * COPD is chornic and appears compensated, however we are treating for a possible mild exacerbation that can be due to fluid overload and underlying atelectasis * leukocytosis possibly steroid related, however we are treating for a possible HCAP * partially occlussive bilateral LE DVTs 06/12 Plan - continue a/c for VTE - trc/nebs - sputum cx - cont abx - bipap to reduce work of breathing as needed and nocturnal - goals of care discussion with family - prednisone taper as ordered - diuresis, f/u ins/outs, daily weights - f/u cardiology recommendations DVT prophylaxis at all times
--- NOTE | 2016-06-14 11:18 | PN- Cardiology ---
Subjective Subjective: No complaints, but remains tachycardic despite an increase in his carvedilol from 3.125 mg twice daily to 6.25 mg twice daily. Specifically denies any chest discomfort, palpitations, shortness of breath, etc. Telemetry reveals sinus tachycardia with a heart rate of 140 bpm. Objective Vital Signs and I&Os Vital Signs Date Time Temp Pulse Resp B/P B/P Pulse O2 O2 Flow FiO2 Mean Ox Delivery Rate 06/14 0928 106/64 06/14 0804 95 Nasal 2.0L Cannula 06/14 0801 97 Nasal 2.0L Cannula 06/14 08 97.0 144 20 100/60 97 Nasal 2.0L Cannula 06/14 0624 142 97 06/14 0438 142 06/14 0137 14 96 06/14 0000 Nasal 2.0L Cannula 06/13 2358 97.7 142 24 98/66 97 BIPAP 06/13 2205 140 97 06/13 2058 141 06/13 1610 98 Nasal 2.0L Cannula 06/13 1608 97.9 142 22 98/62 96 Nasal Cannula Intake & Output 06/14 1600 06/14 0800 06/14 0000 06/13 1600 06/13 0800 06/13 0000 Intake Total 620 1450.2 1517.5 600 797.3 Output Total 225 250 250 300 450 Balance 395 1200.2 1267.5 300 347.3 Intake, IV 600 1160.2 857.5 600 557.3 Intake, Oral 20 290 660 240 Output, Urine 225 250 250 300 450 Patient 224 lb Weight Physical Exam: Well-developed, morbidly obese elderly male in no acute distress with nasal oxygen in place. Vital signs: See above. Neck: No JVD, no bruits. Lungs: Decreased breath sounds bilaterally. Heart: S1, S2 with no murmur, gallop, or rub appreciated. Abdomen: Soft, nontender, positive bowel sounds. Extremities: Trace edema. Assessment/Plan Assessment/Plan 76-year-old morbidly obese male with a history of former heavy tobacco use, COPD on home oxygen with previous exacerbations, obesity hyperventilation syndrome, JUANITO on CPAP, previous stroke, CKD, chronic anemia, HTN, HLD, DM, and CAD (s/p OK's by ECG/LV systolic dysfunction with previous HF s/p CABG 2011 at [facility] who presented via ambulance from his ECF ([facility]) with AMS, hypercarbic and hypoxemic respiratory failure secondary to HF, +/-mild COPD exacerbation who was additionally found to have partially occlusive bilateral LE DVTs for which anticoagulation was initiated at VTE dosing. Recommendations: * Continue on telemetry. Remains tachycardic that is multifactorial (anemia, pulmonary medications, etc.) and just had his carvedilol increased from 3.125 mg twice daily to 6.25 mg twice daily. Will follow-up his heart rate but course of the day. If necessary, can incease the carvedilol further as his blood pressure tolerates. * Agree with pulmonary medicine, that given his history of previous GI bleeding, warfarin preferable to NOACs. * Continue oxygen, TRC, steroids, antimicrobial therapy, as per pulmonary medicine. * Fortunately, no evidence of significant pulmonary hypertension, RV strain, etc. by echocardiography. * Check all stools for occult blood. * Given known CAD would maintain hemoglobin at or above 8.0 g/dl. Continue telemetry? Yes (persistent tachycardia)
--- NOTE | 2016-06-14 15:48 | NUR ---
WOUND CARE: REQUESTED BY NURSING STAFF TO EVALUATE PT FOR SKIN ALTERATION TO RIGHT BUTTOCKS- HX OBTAINED FROM PT - PT REPORTS HAVING HAD WOUND AT HOME AND CARED FOR BY HIS SON - RIGHT BUTTOCKS PRESENTS WITH A STAGE 2 SUPERFICIAL PRESSURE INJURY 0.2 X 0.3 CM CLEAN PINK DERMAL FILL - NO DRNG - PERIWOUND UNREMARKABLE - OFFLOADING MAINTAINED - PT CURRENTLY ON GROUP 2 MATTRESS IMPRESSION: STAGE 2 PRESSURE INJURY RIGHT BUTTOCKS RECOMMENDATION: CLEANSE WITH NS FB HYDROCOLLOID DRESSING Q 3 DAYS AND PRN - MAINTAIN SIDELYING POSITION AND GUIDELINES FOR STAGE 2 PRESSURE INJURY PLEASE
--- NOTE | 2016-06-14 16:04 | PN- Att Addend ---
Attending MD Review Statement Attending Statement Attending MD Statement: examined this patient, discuss w/resident/PA/[employer]CROS[employer] COACH, agreed w/resident/PA/[employer], reviewed EMR data (avail), discussed w/nursing Attending Assessment/Plan: Laboratory Tests 06/14/16 0845: Anion Gap 8, Estimated GFR 49 L, BUN/Creatinine Ratio 18.6, Magnesium 2.1, CBC w Diff MAN DIFF ORDERED, RBC 3.03 L, MCV 86.5, MCH 27.6, RDW 17.8 H, MPV 8.2, Gran % 88.7 H, Lymphocytes % 5.5 L, Monocytes % 5.8, Eosinophils % 0, Basophils % 0 L, Absolute Granulocytes 19.7 H, Absolute Lymphocytes 1.2, Absolute Monocytes 1.3 H, Absolute Eosinophils 0, Absolute Basophils 0, Platelet Estimate VERIFIED BY SMEAR, Polychromasia 1+, Poikilocytosis 1+, Basophilic Stippling SLIGHT, Anisocytosis 1+, Ovalocytes 1+, PUBS MCHC 31.9 L Vital Signs Date Time Temp Pulse Resp B/P B/P Pulse O2 O2 Flow FiO2 Mean Ox Delivery Rate 06/14 0928 106/64 06/14 0804 95 Nasal 2.0L Cannula 06/14 0801 97 Nasal 2.0L Cannula 06/14 0800 97.0 144 20 100/60 97 Nasal 2.0L Cannula 06/14 0624 142 97 06/14 0438 142 06/14 0137 14 96 06/14 0000 Nasal 2.0L Cannula 06/13 2358 97.7 142 24 98/66 97 BIPAP 06/13 2205 140 97 06/13 2058 141 06/13 1610 98 Nasal 2.0L Cannula 06/13 1608 97.9 142 22 98/62 96 Nasal Cannula Patient seen and examined at bedside. Discussed with patient the care plan. Patient is coming with a CT scan chest without contrast today to further evaluate his leukocytosis and tachycardia. The leukocytosis may be secondary to his steroids which we have changed to by mouth from today. We have also increased his Coreg to 6.25 mg twice a day because of the tachycardia. His VQ scan that was done was very low probability for pulmonary embolism but patient does have bilateral lower extremity DVT and and right upper arm DVT. Given that patient has prior history of GI bleed secondary to duodenal ulcer we will start him on proton pump inhibitors twice a day. We gave him another low-dose Lasix 10 mg IV today and we will see how he does. For possible healthcare associated pneumonia we will continue on vancomycin and ceftazidime to only get a CT chest report. If CT of the chest does not show any pneumonia we'll stop antibiotics. Also there is a concern for GI bleeding secondary to Eliquis so we will discuss this with the family and see if they want him to be on warfarin instead. In that case we will stop the Eliquis and start him on heparin drip and warfarin.
[2016-06-14 16:15] VITALS: BP 100/70
--- NOTE | 2016-06-14 17:07 | CT SCAN REPORT ---
EXAMINATION: CT CHEST WITHOUT CONTRAST CLINICAL INFORMATION: Tachycardia. Hypoxia. Rule out pneumonia. COMPARISON: CT scan of the chest dated 06/26/2015. TECHNIQUE: Multidetector volumetric CT imaging of the chest was obtained noncontrast. Sagittal and coronal reformations were obtained. DLP: 684.26 mGy-cm. FINDINGS: LUNGS: Low lung volumes are seen with dependent atelectasis in the left upper lobe and both lower lobes. Small bilateral pleural effusions are seen. No focal consolidation/pneumonia is noted. Central airways are mildly narrowed but patent. LYMPHOVASCULAR STRUCTURES: The patient is status post median sternotomy and CABG surgery. Four-chamber enlargement of the heart is seen. Prominent epicardiac and mediastinal fat is noted. Moderate atherosclerotic calcifications of the aorta and coronary arteries is seen. The central pulmonary arteries are enlarged, suggesting pulmonary arterial hypertension. Aortic size normal. No pericardial effusion. No mediastinal, hilar or axillary adenopathy or free fluid collection. THYROID GLAND: Unremarkable to the extent included. CHEST WALL: Glandular density seen in the subareolar locations of both breasts, slightly asymmetric and more prominent on the left side than the right, most likely representing asymmetric gynecomastia. There is asymmetric stranding and edema seen in the left lateral soft tissues of the lower chest and the upper abdomen, incompletely included on this exam, unclear if related to focal contusion or focal anasarca. UPPER ABDOMEN: Included portions of the solid organs in the upper abdomen unremarkable. BONES: The patient is status post median sternotomy. Moderate vertebral spondylosis is seen throughout the cervical and thoracic and upper lumbar spine. IMPRESSION: 1. No evidence of focal pneumonia. Low lung volumes are noted with bilateral scattered areas of dependent atelectasis. 2. Four-chamber enlargement of the heart, suspicious for dilated cardiomyopathy. 3. Enlarged central pulmonary arteries, suggesting pulmonary arterial hypertension. 4. Moderate coronary artery calcifications. 5. Asymmetric stranding and edema in the left lateral soft tissues of the lower chest and the upper abdomen, possibly due to contusion or focal anasarca. Clinical correlation requested. 6. Bilateral subareolar breast densities, most consistent with asymmetric gynecomastia.
--- NOTE | 2016-06-14 19:27 | Event Note ---
Event Note Event Note: I called the patient's son Mr. Alejo David, to update him about the patient's condition and discuss plan of care for him. He was updated regarding the persistent tachycardia, the VQ scan results, the extremity deep vein thrombosis, and persistent hypoxia. Given his history of GI bleed, railcar carpenter suggestion was related to patient's son about the choice of anticoagulation, with something that is reversible versus newer anticoagulants which does not require frequent monitoring but will potentially not have any reversible agent. Patient's son chose to put him on warfarin/Coumadin given the reversibility of the agent versus newer anticoagulant like Eliquis (that the patient is already on since changing from Heparin). This can be changed tomorrow, as the patient is to receive the PM dose of Eliquis tonight. Patient will be well anticoagulated until tomorrow. Also, considering the initial wishes that was relayed to the medical team by him (the son) that would limit the treatment to not using IV fluids or IV antibiotics, which was changed later to see how he improves with the initial trial of treatment, he does not seem to be doing any better. His CT scan of chest done today shows signs of dilated cardiomyopathy, pulmonary hypertension, which can also indicate his progressive thrombosis in the pulmonary arteries, despite the fact that he underwent a VQ scan very recently which mentioned low probability of pulmonary embolism. This can directly mean for prognosis of the patient's health, including the risk of . Patient's son has thus requested attending/the primary team to get in touch tomorrow and discuss the plan of care given the patient's current situation. Message relayed to the night staff and will be planned accordingly in the morning. Resident informed about the while conversation.
[2016-06-14 22:14] VITALS: BP 98/60
[2016-06-15 08:03] LABS: ABSOLUTE BASOPHIL COUNT 0 /CUMM (0.0-0.2); ABSOLUTE EOSINOPHIL COUNT 0 /CUMM (0.0-0.7); ABSOLUTE GRANULOCYTE CT 19.1 /CUMM (1.4-6.5); ABSOLUTE LYMPH COUNT 1.4 /CUMM (1.2-3.4); ABSOLUTE MONOCYTE COUNT 1.3 /CUMM (0.10-0.60); BASOPHIL % 0 % (0.0-2.0); EOSINOPHIL % 0 % (0-5); GRANULOCYTE % 87.8 % (42.2-75.2); HEMATOCRIT 27.4 % (42-52); MEAN CORPUSCULAR HGB 27.7 PG (27.0-31.0); MEAN CORPUSCULAR HGB CONC 31.6 G/DL (33.0-37.0); MEAN CORPUSCULAR VOLUME 87.5 FL (80.0-94.0); MEAN PLATELET VOLUME 8.6 FL (7.4-10.4); PLATELET COUNT 381 /CUMM (130-400); RBC DISTRIBUTION WIDTH 17.8 % (11.5-14.5); RED BLOOD CELL CT 3.14 /CUMM (4.70-6.10); WHITE BLOOD CELL COUNT 21.7 /CUMM (4.8-10.8)
[2016-06-15 08:30] LABS: PT 21.4 SEC (9.4-12.5)
[2016-06-15 08:48] VITALS: BP 100/70
--- NOTE | 2016-06-15 09:33 | PN- Pulmonary ---
Subjective HPI/Critical Care Issues: pt seen and examined afebrile bipap overnight hemodynamically stable other than continued tachycardia Objective Current Medications: Current Medications Sig/Amadeo Start time Last Medication Dose Route Stop Time Status Admin Albuterol Sulfate 3 ML EVERY 4 HRS/AWAKE 06/11 2000 AC 06/14 INH 0758 Apixaban 10 MG BID 06/13 1600 DC 06/14 PO 06/19 2201 2243 Aspirin Buffered 81 MG DAILY 06/15 1000 AC PO Atorvastatin Calcium 40 MG 1700 06/11 1700 AC 06/14 PO 1611 Carvedilol 12.5 MG BID 06/15 1000 AC PO Carvedilol 6.25 MG BID 06/14 1000 DC 06/15 PO 0819 Ceftazidime 1,000 MG Q8H 06/11 0100 DC 06/15 IV 0100 Diltiazem HCl 30 MG ONCE ONE 06/15 0930 DC PO 06/15 0931 Furosemide 10 MG ONCE ONE 06/15 0830 DC IV 06/15 0831 Furosemide 10 MG ONCE ONE 06/14 1330 DC 06/14 IV 06/14 1331 1334 Heparin Sodium 25,000 UNIT Q24H 06/15 0930 AC (Porcine) IV Sodium Chloride 500 ML Insulin Aspart 0 TIDAC 06/11 0800 AC 06/14 SC 1652 Insulin Detemir 10 UNITS BID 06/14 1000 AC 06/14 SC 2244 Ipratropium [place] 2.5 ML Q4 HRS NEEDED PRN 06/12 1130 AC 06/15 INH 0814 Lactobacillus 1 CAP DAILY 06/13 1129 AC 06/14 Acidophilus PO 0927 Omeprazole 40 MG BID 06/14 1000 AC 06/14 PO 2242 Patient Medication 1 ED .STK-MED ONE 06/14 1350 [place] [facility] 06/14 1351 Prednisone 10 MG DAILY 06/20 1000 AC PO 06/22 0959 Prednisone 20 MG DAILY 06/18 1000 AC PO 06/20 0959 Prednisone 30 MG DAILY 06/16 1000 AC PO 06/18 0959 Prednisone 40 MG DAILY 06/14 1000 AC 06/14 PO 06/16 0959 0926 Sodium Chloride 1,000 ML Q13H 06/12 1915 DC 06/15 IV 0200 Tiotropium [place] 1 PUF DAILY 06/11 1000 AC 06/14 INH 0926 Vancomycin HCl 1,500 MG DAILY 06/11 1000 DC 06/14 Sodium Chloride 500 ML IV 1011 Vital Signs & I&O Last 24 Hrs of Vitals and I&O: Vital Signs Date Time Temp Pulse Resp B/P B/P Pulse O2 O2 Flow FiO2 Mean Ox Delivery Rate 06/15 0848 97.5 145 16 100/70 95 BIPAP 06/15 0819 145 100/60 06/15 0815 94 Nasal 2.0L Cannula 06/15 0808 145 96 06/15 0221 144 97 06/15 0000 BIPAP 06/14 2243 144 98/60 06/14 2238 144 98 06/14 2214 97.9 144 20 9860 97 Nasal 2.0L Cannula 06/14 1633 97 Nasal 2.0L Cannula 06/14 1631 97 Nasal 2.0L Cannula 06/14 1615 98.6 146 18 100/70 97 Nasal 2.0L Cannula Intake & Output 06/15 1600 06/15 0800 06/15 0000 Intake Total 700 Output Total 250 450 Balance 450 -450 Intake, IV 600 Intake, Oral 100 Output, Urine 250 450 Exam Other Physical Findings: gen awake and alert heent ncat cvs s1, s2, tachycardia lungs bilateral scattered rhonchi abd soft bs+ ext 1+ edema Results Last 24 Hrs of Lab Results: Laboratory Tests 06/15/16 0615: Anion Gap 9, Estimated GFR 49 L, BUN/Creatinine Ratio 20.0, PT 21.4 H, INR 2.05 H, CBC w Diff MAN DIFF ORDERED, RBC 3.14 L, MCV 87.5, MCH 27.7, RDW 17.8 H, MPV 8.6, Gran % 87.8 H, Lymphocytes % 6.4 L, Monocytes % 5.8, Eosinophils % 0, Basophils % 0 L, Absolute Granulocytes 19.1 H, Segmented Neutrophils 90 H, Absolute Lymphocytes 1.4, Lymphocytes 4 L, Monocytes 4, Absolute Monocytes 1.3 H, Absolute Eosinophils 0, Absolute Basophils 0, Metamyelocytes 2 H, Platelet Estimate VERIFIED BY SMEAR, Polychromasia 1+, Poikilocytosis 1+, Anisocytosis 1+ , Ovalocytes 1+, PUBS MCHC 31.6 L Impression/Plan Impression/Plan Impression/Plan: Impression 76 year old man * improved hypercarbic and hypoxemic respiratory failure secondary to underlying CHF * COPD is chornic and appears compensated, however we are treating for a possible mild exacerbation that can be due to fluid overload and underlying atelectasis * leukocytosis likely steroid induced, no underlying infiltrates * partially occlussive bilateral LE DVTs 06/12 Plan - continue a/c for VTE - trc/nebs - agree with stopping abx - bipap nocturnal and prn - prednisone taper as ordered - diuresis, f/u ins/outs, daily weights - f/u cardiology recommendations DVT prophylaxis at all times
--- NOTE | 2016-06-15 09:38 | PN- Housestaff ---
See Addendum Subjective Follow-up For: Elevated troponins Bilateral DVT Possible pulmonary embolism Acute kidney injury Leukocytosis Tachycardia Complaints: no complaints Tele-Events Since Last Visit: Sinus tachycardia ranging from 141-144 overnight, no events otherwise. Subjective: I followed up and examined the patient today. He looks slightly worse than yesterday regarding respiratory status, he answers in short sentences, work of breathing seems worse than yesterday, but mentions no complaints, telemetry event as noted above. Of note, his appetite is poor unless there is a family member encouraging him by the side. Review of Systems Constitutional: Reports: no symptoms. Objective Last 24 Hrs of Vital Signs/I&O Vital Signs Date Time Temp Pulse Resp B/P B/P Pulse O2 O2 Flow FiO2 Mean Ox Delivery Rate 06/15 1446 146 88/64 06/15 1123 100/70 06/15 1034 145 100/70 06/15 0848 97.5 145 16 100/70 95 BIPAP 06/15 0819 145 100/60 06/15 0815 94 Nasal 2.0L Cannula 06/15 0808 145 96 06/15 0800 Nasal 2.0L Cannula 06/15 0221 144 97 06/15 0000 BIPAP 06/14 2243 144 98/60 06/14 2238 144 98 06/14 2214 97.9 144 20 98/60 97 Nasal 2.0L Cannula 06/14 1633 97 Nasal 2.0L Cannula 06/14 1631 97 Nasal 2.0L Cannula 06/14 1615 98.6 146 18 100/70 97 Nasal 2.0L Cannula Intake & Output 06/15 1600 06/15 0800 06/15 0000 Intake Total 700 Output Total 250 450 Balance 450 -450 Intake, IV 600 Intake, Oral 100 Output, Urine 250 450 Physical Exam General Appearance: Alert, Oriented X3, Cooperative, Mild Distress Other Physical Findings: Skin: No Rashes, No Breakdown HEENT: Atraumatic, PERRLA, EOMI, Mucous Membr. moist/pink Neck: Supple, No JVD Cardiovascular: Regular Rate, Normal S1, Normal S2 Lungs: b/l crackles heard on Auscultation Abdomen: Normal Bowel Sounds, Soft Neurological: no change than yesterday, grossly intact Extremities: No Clubbing, No Cyanosis, Edema present b/l, Normal Pulses Vascular: Pulses Symmetrical Current Medications: Current Medications Sig/Amadeo Start time Last Medication Dose Route Stop Time Status Admin Albuterol Sulfate 3 ML EVERY 4 HRS/AWAKE 06/11 2000 AC 06/14 INH 0758 Apixaban 10 MG BID 06/13 1600 DC 06/14 PO 06/19 2201 2243 Aspirin Buffered 81 MG DAILY 06/15 1000 AC 06/15 PO 1122 Atorvastatin Calcium 40 MG 1700 06/11 1700 AC 06/14 PO 1611 Carvedilol 12.5 MG BID 06/15 1000 AC PO Carvedilol 6.25 MG BID 06/14 1000 DC 06/15 PO 0819 Ceftazidime 1,000 MG Q8H 06/11 0100 DC 06/15 IV 0100 Diltiazem HCl 125 MG Q24H 06/15 1100 AC 06/15 Dextrose/Water 100 ML IV 1136 Diltiazem HCl 10 MG ONCE ONE 06/15 1000 DC 06/15 IV 06/15 1001 1034 Diltiazem HCl 30 MG ONCE ONE 06/15 0930 CAN PO 06/15 0931 Furosemide 10 MG ONCE ONE 06/15 1500 DC IV 06/15 1501 Furosemide 10 MG ONCE ONE 06/15 0830 DC 06/15 IV 06/15 0831 1121 Heparin Sodium 25,000 UNIT Q24H 06/15 0930 AC 06/15 (Porcine) IV 1145 Sodium Chloride 500 ML Insulin Aspart 0 TIDAC/HS 06/15 1700 AC SC Insulin Aspart 0 TIDAC 06/11 0800 DC 06/15 SC 1316 Insulin Detemir 12 UNITS BID 06/15 2200 AC SC Insulin Detemir 10 UNITS BID 06/14 1000 DC 06/15 SC 1121 Ipratropium [place] 2.5 ML Q4 HRS NEEDED PRN 06/12 1130 AC 06/15 INH 1207 Lactobacillus 1 CAP DAILY 06/13 1129 AC 06/15 Acidophilus PO 1122 Omeprazole 40 MG BID 06/14 1000 AC 06/15 PO 1122 Prednisone 10 MG DAILY 06/20 1000 AC PO 06/22 0959 Prednisone 20 MG DAILY 06/18 1000 AC PO 06/20 0959 Prednisone 30 MG DAILY 06/16 1000 AC PO 06/18 0959 Prednisone 40 MG DAILY 06/14 1000 AC 06/15 PO 06/16 0959 1122 Sodium Chloride 1,000 ML Q13H 06/12 1915 DC 06/15 IV 0200 Tiotropium [place] 1 PUF DAILY 06/11 1000 AC 06/15 INH 1120 Vancomycin HCl 1,500 MG DAILY 06/11 1000 DC 06/14 Sodium Chloride 500 ML IV 1011 Warfarin Sodium 2.5 MG COUMADIN 1700 ONE 06/15 1700 AC PO 06/15 1701 Last 24 Hrs of Lab/Sumanth Results Last 24 Hrs of Labs/Mics: Laboratory Tests 06/15/16 0615: Anion Gap 9, Estimated GFR 49 L, BUN/Creatinine Ratio 20.0, PT 21.4 H, INR 2.05 H, CBC w Diff MAN DIFF ORDERED, RBC 3.14 L, MCV 87.5, MCH 27.7, RDW 17.8 H, MPV 8.6, Gran % 87.8 H, Lymphocytes % 6.4 L, Monocytes % 5.8, Eosinophils % 0, Basophils % 0 L, Absolute Granulocytes 19.1 H, Segmented Neutrophils 90 H, Absolute Lymphocytes 1.4, Lymphocytes 4 L, Monocytes 4, Absolute Monocytes 1.3 H, Absolute Eosinophils 0, Absolute Basophils 0, Metamyelocytes 2 H, Platelet Estimate VERIFIED BY SMEAR, Polychromasia 1+, Poikilocytosis 1+, Anisocytosis 1+ , Ovalocytes 1+, PUBS MCHC 31.6 L Assessment/Plan Assessment: 76-year-old gentleman who resides at [place] brought in for lethargy and confusion. PMH type 2 diabetes, CAD S/P CABG, COPD on 2 LNC, HFrEF of 50% on , stage I diastolic dysfunction, RVSP 42mmHg, CVA, cpap on nocturnal bipaP, stage III cKD, HTN, recent admissions for CHF/COPD exacerbation in June 2015, March 2016. Problem list: 1. Elevated troponins: Likely type II 2. SIRS 3. Persistent tachycardia 4. Hypokalemia 5. DVT of RUE, and B/L lower ext 6. Lethargy/AMS 7. Diabetes 8. JUANITO on CPAP Of note, patient's son Mr. Alejo David, has pain constantly in touch and is being updated about the patient's status. He has been asked to discuss the plan of care for the patient multiple times. #Persistent tachycardia Patient remained in persistent tachycardia throughout the night. He is in sinus tachycardia with rate between 130-140. Venous Doppler bilateral lower extremities and right upper ext shows DVT. * Apixaban stopped from last night's dose, and initiated IV heparin with Coumadin, given the hx of GI bleeding, after discussing with patient's son Mr. Alejo David. * PE is still a possiblility, given the signs of pulmonary hypertension in the CAT scan of chest. #Systolic congestive heart failure Patient has history of congestive heart failure with ejection fraction 40%. Following Lei Seller recommendations; increased betablocker could not bring patient's heart rate under control, 10 mg of IV Cardizem was pushed and was 4 decreasing heart rate, which was also unsuccessful, thus the patient is now on IV Cardizem drip running at 5 mL per hour. #Possible gram-negative pneumonia Patient received a course of ceftazidime and vancomycin for possible gram- negative pneumonia, and is currently being monitored off antibiotics #Elevated troponins * likely demand ischemia * continue ASA 81mg # Diabetes mellitus * Accu-Cheks * Insulin sliding scale * Levemir #JUANITO on CPAP * We'll continue BiPAP and assess for respiratory improvement. * Pulmonology recommendations followed DNR/DNI, diabetic diet, eliqus for DVT prophylaxis. Problem List: 1. Tachycardia 2. Chronic respiratory failure with hypoxia and hypercapnia 3. DVT (deep venous thrombosis) 4. HFrEF (heart failure with reduced ejection fraction) 5. Renal insufficiency 6. Obesity 7. Diabetes mellitus 8. COPD Pain Ratin Pain Location: - Pain Goal: Pain 4 or less Pain Plan: prn Tomorrow's Labs & Rationales: INR, CBC, BEP, Mg Consulting Request: Consulting Specialty: Cardiology
--- NOTE | 2016-06-15 10:16 | PN- Cardiology ---
Subjective Subjective: Lethargic, but without complaints. Specifically denies any shortness of breath, although appears to tachypneic. Also denies any chest discomfort, palpitations, lower extremity discomfort, etc. On telemetry remains tachycardic with heart rate at present approximately 146 bpm, despite carvedilol 6.25 mg twice daily with blood pressure 100/70 mmHg. Objective Vital Signs and I&Os Vital Signs Date Time Temp Pulse Resp B/P B/P Pulse O2 O2 Flow FiO2 Mean Ox Delivery Rate 06/15 0848 97.5 145 16 100/70 95 BIPAP 06/15 0819 145 100/60 06/15 0815 94 Nasal 2.0L Cannula 06/15 0808 145 96 06/15 0221 144 97 06/15 0000 BIPAP 06/14 2243 144 98/60 06/14 2238 144 98 06/14 2214 97.9 144 20 98/60 97 Nasal 2.0L Cannula 06/14 1633 97 Nasal 2.0L Cannula 06/14 1631 97 Nasal 2.0L Cannula 06/14 1615 98.6 146 18 100/70 97 Nasal 2.0L Cannula Intake & Output 06/15 1600 06/15 0800 06/15 0000 06/14 1600 06/14 0800 06/14 0000 Intake Total 700 8852 665 9790.2 Output Total 250 450 125 225 250 Balance 450 -450 4891 435 8378.2 Intake, IV 600 805 404 5569.2 Intake, Oral 100 400 20 350 Output, Urine 250 450 125 225 250 Physical Exam: Well-developed, morbidly obese elderly male who appears mildly tachypneic with nasal oxygen in place. Vital signs: See above. Neck: No JVD, no bruits. Lungs: Decreased breath sounds bilaterally and scattered rhonchi. Heart: S1, S2 with no murmur, gallop, or rub appreciated. Abdomen: Soft, nontender, positive bowel sounds. Extremities: Trace edema. Current Medications: Current Medications Sig/Amadeo Start time Last Medication Dose Route Stop Time Status Admin Albuterol Sulfate 3 ML EVERY 4 HRS/AWAKE 06/12 1999 AC 06/14 INH 0758 Apixaban 10 MG BID 06/13 1600 DC 06/14 PO 06/19 2201 2243 Aspirin Buffered 81 MG DAILY 06/15 1000 AC PO Atorvastatin Calcium 40 MG 1700 06/11 1700 AC 06/14 PO 1611 Carvedilol 12.5 MG BID 06/15 1000 AC PO Carvedilol 6.25 MG BID 06/14 1000 DC 06/15 PO 0819 Ceftazidime 1,000 MG Q8H 06/11 0100 DC 06/15 IV 0100 Diltiazem HCl 10 MG ONCE ONE 06/15 1000 DC IV 06/15 1001 Diltiazem HCl 30 MG ONCE ONE 06/15 0930 CAN PO 06/15 0931 Furosemide 10 MG ONCE ONE 06/15 0830 DC IV 06/15 0831 Furosemide 10 MG ONCE ONE 06/14 1330 DC 06/14 IV 06/14 1331 1334 Heparin Sodium 25,000 UNIT Q24H 06/15 0930 AC (Porcine) IV Sodium Chloride 500 ML Insulin Aspart 0 TIDAC 06/11 0800 AC 06/14 SC 1652 Insulin Detemir 10 UNITS BID 06/14 1000 AC 06/14 SC 2244 Ipratropium [place] 2.5 ML Q4 HRS NEEDED PRN 06/12 1130 AC 06/15 INH 0814 Lactobacillus 1 CAP DAILY 06/13 1129 AC 06/14 Acidophilus PO 0927 Omeprazole 40 MG BID 06/14 1000 AC 06/14 PO 2242 Patient Medication 1 ED .STK-MED ONE 06/14 1350 ID Teaching ED 06/14 1351 Prednisone 10 MG DAILY 06/20 1000 AC PO 06/22 0959 Prednisone 20 MG DAILY 06/18 1000 AC PO 06/20 0959 Prednisone 30 MG DAILY 06/16 1000 AC PO 06/18 0959 Prednisone 40 MG DAILY 06/14 1000 AC 06/14 PO 06/16 0959 0926 Sodium Chloride 1,000 ML Q13H 06/12 1915 DC 06/15 IV 0200 Tiotropium [place] 1 PUF DAILY 06/11 1000 AC 06/14 INH 0926 Vancomycin HCl 1,500 MG DAILY 06/11 1000 DC 06/14 Sodium Chloride 500 ML IV 1011 Results Last 48 Hrs of Labs/Mics: Laboratory Tests 06/15/16 0615: Anion Gap 9, Estimated GFR 49 L, BUN/Creatinine Ratio 20.0, PT 21.4 H, INR 2.05 H, CBC w Diff MAN DIFF ORDERED, RBC 3.14 L, MCV 87.5, MCH 27.7, RDW 17.8 H, MPV 8.6, Gran % 87.8 H, Lymphocytes % 6.4 L, Monocytes % 5.8, Eosinophils % 0, Basophils % 0 L, Absolute Granulocytes 19.1 H, Segmented Neutrophils 90 H, Absolute Lymphocytes 1.4, Lymphocytes 4 L, Monocytes 4, Absolute Monocytes 1.3 H, Absolute Eosinophils 0, Absolute Basophils 0, Metamyelocytes 2 H, Platelet Estimate VERIFIED BY SMEAR, Polychromasia 1+, Poikilocytosis 1+, Anisocytosis 1+ , Ovalocytes 1+, PUBS MCHC 31.6 L 06/14/16 0845: Anion Gap 8, Estimated GFR 49 L, BUN/Creatinine Ratio 18.6, Magnesium 2.1, CBC w Diff MAN DIFF ORDERED, RBC 3.03 L, MCV 86.5, MCH 27.6, RDW 17.8 H, MPV 8.2, Gran % 88.7 H, Lymphocytes % 5.5 L, Monocytes % 5.8, Eosinophils % 0, Basophils % 0 L, Absolute Granulocytes 19.7 H, Absolute Lymphocytes 1.2, Absolute Monocytes 1.3 H, Absolute Eosinophils 0, Absolute Basophils 0, Platelet Estimate VERIFIED BY SMEAR, Polychromasia 1+, Poikilocytosis 1+, Basophilic Stippling SLIGHT, Anisocytosis 1+, Ovalocytes 1+, PUBS MCHC 31.9 L 06/13/16 1455: APTT > 120 *H Recent Imaging Studies: Chest CT without contrast (06/14/2016): 1. No evidence of focal pneumonia. Low lung volumes are noted with bilateral scattered areas of dependent atelectasis. 2. Four-chamber enlargement of the heart, suspicious for dilated cardiomyopathy. 3. Enlarged central pulmonary arteries, suggesting pulmonary arterial hypertension. 4. Moderate coronary artery calcifications. 5. Asymmetric stranding and edema in the left lateral soft tissues of the lower chest and the upper abdomen, possibly due to contusion or focal anasarca. Clinical correlation requested. 6. Bilateral subareolar breast densities, most consistent with asymmetric gynecomastia. Doppler ultrasound right upper extremity (06/13/2016): 1. There is occlusive thrombus in the right subclavian vein extending into the axillary vein in the proximal basilic vein. The thrombus extends to the mid brachial vein. The cephalic vein remains patent. The veins in the forearm are patent. 2. Specific imaging was performed over the upper forearm area in the region of redness. No abscess or focal fluid collection. IMPRESSION: Occlusive deep vein thrombosis. Assessment/Plan Assessment/Plan 76-year-old morbidly obese male with a history of former heavy tobacco use, COPD on home oxygen with previous exacerbations, obesity hyperventilation syndrome, JUANITO on CPAP, previous stroke, CKD, chronic anemia, HTN, HLD, DM, and CAD (s/p MA's by ECG/LV systolic dysfunction with previous HF s/p CABG 2010 at [facility] who presented via ambulance from his F ([facility]) with AMS, hypercarbic and hypoxemic respiratory failure secondary to HF, +/-mild COPD exacerbation who was additionally found to have partially occlusive bilateral LE DVTs for which anticoagulation was initiated at VTE dosing. Recommendations: * Continue on telemetry. Remains tachycardic that is multifactorial (anemia, pulmonary medications, ? pulmonary embolism, etc.) and just had his carvedilol increased to 6.25 mg twice daily. * Will give additional IV diltiazem 10 mg 1 and obtain 12-lead ECG to be sure we are dealing with sinus tachycardia and not atrial flutter. * Agree with pulmonary medicine, that given his history of previous GI bleeding, warfarin preferable to NOACs. * Continue oxygen, TRC, steroids, etc. as per pulmonary medicine. * Check all stools for occult blood. * Given known CAD would maintain hemoglobin at or above 8.0 g/dl. Continue telemetry? Yes (persistent tachycardia.)
[2016-06-15 14:46] VITALS: BP 88/64
[2016-06-15 16:00] VITALS: BP 92/60
[2016-06-15 18:49] LABS: PTT 88 SEC (25-37)
[2016-06-15 22:00] VITALS: BP 90/70
--- NOTE | 2016-06-16 08:25 | PN- Housestaff ---
Subjective Follow-up For: Elevated troponins Bilateral DVT Possible pulmonary embolism Acute kidney injury Leukocytosis Tachycardia Complaints: no complaints Tele-Events Since Last Visit: sinus tachycardia, 141-142 overnight Subjective: I followed up and examined the patient today. He was using BiPAP machine, alert , oriented and felt much better than yesterday. He offered no complaints. His heart rate has been persistently high 140s until this morning as well, urine output on the lower side, and blood pressure on the low side, IV Cardizem drip running at 5 mL per hour, no other events noted. Review of Systems Constitutional: Reports: no symptoms. Objective Last 24 Hrs of Vital Signs/I&O Vital Signs Date Time Temp Pulse Resp B/P B/P Pulse O2 O2 Flow FiO2 Mean Ox Delivery Rate 06/16 1008 102/58 06/16 0833 98.1 145 30 96/58 97 CPAP 06/16 0819 94 Nasal 2.0L Cannula 06/16 0338 141 96 06/16 0028 141 92 06/16 0000 BIPAP 06/15 2214 140 98 06/15 2200 98.7 144 20 90/70 97 CPAP 06/15 2104 144 90/70 06/15 1640 94 Nasal 2.0L Cannula 06/15 1600 Nasal 2.0L Cannula 06/15 1600 98.0 146 20 92/60 94 Nasal 2.5L Cannula 06/15 1446 146 88/64 06/15 1123 100/70 Intake & Output 06/16 1600 06/16 0800 06/16 0000 Intake Total Output Total 750 Balance -750 Output, Urine 750 Physical Exam General Appearance: Alert, Oriented X3, Cooperative, No Acute Distress, using BiPAP Other Physical Findings: Skin: No Rashes, No Breakdown HEENT: Atraumatic, PERRLA, EOMI, Mucous Membr. moist/pink Neck: Supple, No JVD Cardiovascular: Regular Rate, Normal S1, Normal S2 Lungs: b/l decreased breath sound on Auscultation Abdomen: Normal Bowel Sounds, Soft Neurological: no change than yesterday, grossly intact Extremities: No Clubbing, No Cyanosis, Edema present b/l, Normal Pulses Vascular: Pulses Symmetrical Current Medications: Current Medications Sig/Amadeo Start time Last Medication Dose Route Stop Time Status Admin Albuterol Sulfate 3 ML EVERY 4 HRS/AWAKE 06/12 1999 AC 06/15 INH 2004 Aspirin Buffered 81 MG DAILY 06/15 999 AC 06/16 PO 1006 Atorvastatin Calcium 40 MG 1700 06/11 1700 AC 06/15 PO 1657 Carvedilol 12.5 MG BID 06/15 1000 AC 06/16 PO 1008 Diltiazem HCl 125 MG Q24H 06/16 0900 AC Sodium Chloride 100 ML IV Diltiazem HCl 125 MG Q24H 06/15 1100 DC 06/16 Dextrose/Water 100 ML IV 0805 Furosemide 40 MG .STK-MED ONE 06/15 1656 DC IV 06/15 1657 Furosemide 10 MG ONCE ONE 06/15 1500 DC 06/15 IV 06/15 1501 1656 Heparin Sodium 25,000 UNIT Q24H 06/15 0930 AC 06/16 (Porcine) IV 0806 Sodium Chloride 500 ML Insulin Aspart 0 TIDAC/HS 06/15 1700 AC 06/16 SC 1005 Insulin Aspart 0 TIDAC 06/11 0800 DC 06/15 SC 1316 Insulin Detemir 15 UNITS BID 06/16 1000 AC 06/16 SC 1006 Insulin Detemir 12 UNITS BID 06/15 2200 DC 06/15 SC 2117 Insulin Detemir 10 UNITS BID 06/14 1000 DC 06/15 SC 1121 Ipratropium [place] 2.5 ML Q4 HRS NEEDED PRN 06/12 1130 AC 06/16 INH 0818 Lactobacillus 1 CAP DAILY 06/13 1129 AC 06/16 Acidophilus PO 1006 Omeprazole 40 MG BID 06/14 1000 AC 06/16 PO 1007 Prednisone 10 MG DAILY 06/20 1000 AC PO 06/22 0959 Prednisone 20 MG DAILY 06/18 1000 AC PO 06/20 0959 Prednisone 30 MG DAILY 06/16 1000 AC 06/16 PO 06/18 0959 1007 Prednisone 40 MG DAILY 06/14 1000 DC 06/15 PO 06/16 0959 1122 Tiotropium [place] 1 PUF DAILY 06/11 1000 AC 06/15 INH 1120 Warfarin Sodium 2.5 MG COUMADIN 1700 ONE 06/15 1700 DC 06/15 PO 06/15 1701 1703 Last 24 Hrs of Lab/[place]anth Results Last 24 Hrs of Labs/Mics: Laboratory Tests 06/16/16 0630: Anion Gap 6, Estimated GFR 49 L, BUN/Creatinine Ratio 22.1, Magnesium 2.0, PT 19.1 H, INR 1.83 H, APTT > 120 *H, CBC w Diff MAN DIFF ORDERED, RBC 3.26 L, MCV 87.1, MCH 27.9, RDW 18.0 H, MPV 9.0, Gran % 85.4 H, Lymphocytes % 8.5 L, Monocytes % 6.1, Eosinophils % 0, Basophils % 0 L, Absolute Granulocytes 21.4 H, Segmented Neutrophils 82 H, Band Neutrophils 1, Absolute Lymphocytes 2.1, Lymphocytes 6 L, Monocytes 7, Absolute Monocytes 1.5 H, Absolute Eosinophils 0 , Absolute Basophils 0, Metamyelocytes 3 H, Myelocytes 1 H, Platelet Estimate ADEQUATE, Polychromasia 1+, Hypochromic-Microcytic 2+, Poikilocytosis 1+, Anisocytosis 1+, PUBS MCHC 32.0 L 06/15/16 1800: APTT 88 H Assessment/Plan Assessment: 76-year-old gentleman who resides at [facility] brought in for lethargy and confusion. PMH type 2 diabetes, CAD S/P CABG, COPD on 2 LNC, HFrEF of 50% on , stage I diastolic dysfunction, RVSP 42mmHg, CVA, cpap on nocturnal bipaP, stage III cKD, HTN, recent admissions for CHF/COPD exacerbation in June 2015, March 2016. Problem list: 1. Elevated troponins: Likely type II 2. SIRS 3. Persistent tachycardia 4. Hypokalemia, resolved 5. DVT of RUE, and B/L lower ext 6. Lethargy/AMS, better 7. Diabetes 8. JUANITO on CPAP Of note, patient's son Mr. Alejo David, has pain constantly in touch and is being updated about the patient's status. He has been asked to discuss the plan of care for the patient multiple times. #Persistent tachycardia Patient remained in persistent tachycardia throughout the night. He is in sinus tachycardia with rate between 130-140. Venous Doppler bilateral lower extremities and right upper ext shows DVT. * A trial of Carotid sinus massage was done to try get the rate under control and thus to analyze the rhythm this morning (06/16/16) by attending Dr Plaza under monitor, but it did not change the heart rate at all (remained 144-145/min ). * Rate control to be done with either Digoxin OR Adenosine as mentioned in Piston Maker's suggestion. * On IV heparin with Coumadin for anticoagulation, given the hx of GI bleeding warfarin (coumadin) is reversible. #Systolic congestive heart failure with tachycarida Patient has history of congestive heart failure with ejection fraction 40%. Following Piston Maker recommendations; increased betablocker could not bring patient's heart rate under control, 10 mg of IV Cardizem was pushed, the patient is currently on IV Cardizem drip running at 5 mL per hour, which was not increased overnight because of low BP. This morning, after making sure he has good hydration status, he is to be trailed with adenosine or digoxin to get the heart rate lowered, analyze the rhythm and proceed from there. #Possible gram-negative pneumonia Patient received a course of ceftazidime and vancomycin for possible Gram- negative pneumonia, and is currently being monitored off antibiotics. #Elevated troponins * likely demand ischemia * continue ASA 81mg # Diabetes mellitus * Accu-Cheks * Insulin sliding scale * Levemir #JUANITO on CPAP * We'll continue BiPAP and assess for respiratory improvement. * Pulmonology recommendations followed #persistant leucocytosis, ?due to steroid use #chronic renal insufficency: creatinine today is 1.4, will monitor DNR/DNI, diabetic diet, eliqus for DVT prophylaxis. Problem List: 1. Tachycardia 2. DVT (deep venous thrombosis) 3. HFrEF (heart failure with reduced ejection fraction) 4. Leukocytosis 5. Renal insufficiency Pain Ratin Pain Location: - Pain Goal: Pain 4 or less Pain Plan: prn Tomorrow's Labs & Rationales: INR, CBC, BEP, Mg to dose coumadin, f/u leucocytosis, lytes Consulting Request: Consulting Specialty: Cardiology
[2016-06-16 08:32] LABS: PT 19.1 SEC (9.4-12.5)
[2016-06-16 08:33] VITALS: BP 96/58
[2016-06-16 08:40] LABS: ABSOLUTE BASOPHIL COUNT 0 /CUMM (0.0-0.2); ABSOLUTE EOSINOPHIL COUNT 0 /CUMM (0.0-0.7); ABSOLUTE GRANULOCYTE CT 21.4 /CUMM (1.4-6.5); ABSOLUTE LYMPH COUNT 2.1 /CUMM (1.2-3.4); ABSOLUTE MONOCYTE COUNT 1.5 /CUMM (0.10-0.60); BASOPHIL % 0 % (0.0-2.0); EOSINOPHIL % 0 % (0-5); GRANULOCYTE % 85.4 % (42.2-75.2); HEMATOCRIT 28.4 % (42-52); MEAN CORPUSCULAR HGB 27.9 PG (27.0-31.0); MEAN CORPUSCULAR VOLUME 87.1 FL (80.0-94.0); PLATELET COUNT 358 /CUMM (130-400); RED BLOOD CELL CT 3.26 /CUMM (4.70-6.10)
[2016-06-16 08:50] LABS: PTT > 120 SEC (25-37)
--- NOTE | 2016-06-16 09:41 | PN- Pulmonary ---
Subjective HPI/Critical Care Issues: pt seen and examined afebrile tachycardia persists tacypnea as well on pap tx overnight saturating well this am Objective Current Medications: Current Medications Sig/Amadeo Start time Last Medication Dose Route Stop Time Status Admin Albuterol Sulfate 3 ML EVERY 4 HRS/AWAKE 06/11 2000 AC 06/15 INH 2005 Aspirin Buffered 81 MG DAILY 06/15 1000 AC 06/15 PO 1122 Atorvastatin Calcium 40 MG 1700 06/11 1700 AC 06/15 PO 1657 Carvedilol 12.5 MG BID 06/15 1000 AC 06/15 PO 2104 Diltiazem HCl 125 MG Q24H 06/16 0900 AC Sodium Chloride 100 ML IV Diltiazem HCl 125 MG Q24H 06/15 1100 DC 06/16 Dextrose/Water 100 ML IV 0805 Diltiazem HCl 10 MG ONCE ONE 06/15 1000 DC 06/15 IV 06/15 1001 1034 Diltiazem HCl 30 MG ONCE ONE 06/15 0930 CAN PO 06/15 0931 Furosemide 40 MG .STK-MED ONE 06/15 1656 DC IV 06/15 1657 Furosemide 10 MG ONCE ONE 06/15 1500 DC 06/15 IV 06/15 1501 1656 Heparin Sodium 25,000 UNIT Q24H 06/15 0930 AC 06/16 (Porcine) IV 0806 Sodium Chloride 500 ML Insulin Aspart 0 TIDAC/HS 06/15 1700 AC 06/15 SC 2117 Insulin Aspart 0 TIDAC 06/11 0800 DC 06/15 SC 1316 Insulin Detemir 15 UNITS BID 06/16 1000 AC SC Insulin Detemir 12 UNITS BID 06/15 2200 DC 06/15 [place] 2117 Insulin Detemir 10 UNITS BID 06/14 1000 DC 06/15 SC 1121 Ipratropium [place] 2.5 ML Q4 HRS NEEDED PRN 06/12 1130 AC 06/16 INH 0818 Lactobacillus 1 CAP DAILY 06/13 1129 AC 06/15 Acidophilus PO 1122 Omeprazole 40 MG BID 06/14 1000 AC 06/15 PO 2104 Prednisone 10 MG DAILY 06/20 1000 AC PO 06/22 0959 Prednisone 20 MG DAILY 06/18 1000 AC PO 06/20 0959 Prednisone 30 MG DAILY 06/16 1000 AC PO 06/18 0959 Prednisone 40 MG DAILY 06/14 1000 AC 06/15 PO 06/16 0959 1122 Tiotropium [place] 1 PUF DAILY 06/11 1000 AC 06/15 INH 1120 Warfarin Sodium 2.5 MG COUMADIN 1700 ONE 06/15 1700 DC 06/15 PO 06/15 1701 1703 Vital Signs & I&O Last 24 Hrs of Vitals and I&O: Vital Signs Date Time Temp Pulse Resp B/P B/P Pulse O2 O2 Flow FiO2 Mean Ox Delivery Rate 06/16 0833 98.1 145 30 96/58 97 CPAP 06/16 0819 94 Nasal 2.0L Cannula 06/16 0338 141 96 06/16 0028 141 92 06/16 0000 BIPAP 06/15 2214 140 98 06/15 2200 98.7 144 20 90/70 97 CPAP 06/15 2104 144 90/70 06/15 1640 94 Nasal 2.0L Cannula 06/15 1600 Nasal 2.0L Cannula 06/15 1600 98.0 146 20 92/60 94 Nasal 2.5L Cannula 06/15 1446 146 88/64 06/15 1123 100/70 06/15 1034 145 100/70 Intake & Output 06/16 1600 06/16 0800 06/16 0000 Intake Total Output Total 750 Balance -750 Output, Urine 750 Exam Other Physical Findings: gen awake and alert heent ncat cvs s1, s2, tachycardia lungs bilateral scattered rhonchi abd soft bs+ ext 1+ edema Results Last 24 Hrs of Lab Results: Laboratory Tests 06/16/16 0630: Anion Gap 6, Estimated GFR 49 L, BUN/Creatinine Ratio 22.1, Magnesium 2.0, PT 19.1 H, INR 1.83 H, APTT > 120 *H, CBC w Diff MAN DIFF ORDERED, WBC Pending, RBC Pending, Hgb Pending, Hct Pending, MCV Pending, MCH Pending, RDW Pending, Plt Count Pending, MPV Pending, Gran % Pending, Lymphocytes % Pending, Monocytes % Pending, Eosinophils % Pending, Basophils % Pending, Absolute Granulocytes Pending, Segmented Neutrophils Pending, Absolute Lymphocytes Pending, Absolute Monocytes Pending, Absolute Eosinophils Pending, Absolute Basophils Pending, PUBS MCHC Pending 06/15/16 1800: APTT 88 H Impression/Plan Impression/Plan Impression/Plan: Impression 76 year old man * improved hypercarbic and hypoxemic respiratory failure secondary to underlying CHF * COPD is chornic and appears compensated, however we are treating for a possible mild exacerbation that can be due to fluid overload and underlying atelectasis * leukocytosis likely steroid induced, no underlying infiltrates * partially occlussive bilateral LE DVTs 06/12 Plan - continue a/c for VTE - trc/nebs - off abx - bipap nocturnal and prn - prednisone taper as ordered - diuresis, f/u ins/outs, daily weights - f/u cardiology recommendations DVT prophylaxis at all times
--- NOTE | 2016-06-16 10:05 | PN- Att Addend ---
Attending MD Review Statement Attending Statement Attending MD Statement: examined this patient, discuss w/resident/PA/FRENCH PROFESSOR, agreed w/resident/PA/FRENCH PROFESSOR, reviewed EMR data (avail), discussed w/nursing, discussed w/ case mgmt Attending Assessment/Plan: Laboratory Tests 06/16/16 0630: Anion Gap 6, Estimated GFR 49 L, BUN/Creatinine Ratio 22.1, Magnesium 2.0, PT 19.1 H, INR 1.83 H, APTT > 120 *H, CBC w Diff MAN DIFF ORDERED, RBC 3.26 L, MCV 87.1, MCH 27.9, RDW 18.0 H, MPV 9.0, Gran % 85.4 H, Lymphocytes % 8.5 L, Monocytes % 6.1, Eosinophils % 0, Basophils % 0 L, Absolute Granulocytes 21.4 H, Segmented Neutrophils 82 H, Band Neutrophils 1, Absolute Lymphocytes 2.1, Lymphocytes 6 L, Monocytes 7, Absolute Monocytes 1.5 H, Absolute Eosinophils 0 , Absolute Basophils 0, Metamyelocytes 3 H, Myelocytes 1 H, Platelet Estimate ADEQUATE, Polychromasia 1+, Hypochromic-Microcytic 2+, Poikilocytosis 1+, Anisocytosis 1+, PUBS MCHC 32.0 L 06/15/16 1800: APTT 88 H Vital Signs Date Time Temp Pulse Resp B/P B/P Pulse O2 O2 Flow FiO2 Mean Ox Delivery Rate 06/16 0833 98.1 145 30 96/58 97 CPAP 06/16 0819 94 Nasal 2.0L Cannula 06/16 0338 141 96 06/16 0028 141 92 06/16 0000 BIPAP 06/15 2214 140 98 06/15 2200 98.7 144 20 90/70 97 CPAP 06/15 2104 144 90/70 06/15 1640 94 Nasal 2.0L Cannula 06/15 1600 Nasal 2.0L Cannula 06/15 1600 98.0 146 20 92/60 94 Nasal 2.5L Cannula 06/15 1446 146 88/64 06/15 1123 100/70 06/15 1034 145 100/70 Patient seen and examined at bedside. Discussed with patient the care plan. Patient continues to be afebrile and blood pressure this morning is around 100/ 70 . laboratory monitor shows heart rate staying in 140s despite patient being currently on Cardizem drip at 5 mg per hour as well as on Coreg 12.5 twice a day. We will discuss with cardiology again today to see if if we can do anything different to control his heart rate better. Given his low EF patient may benefit from digoxin. Patient may also benefit from giving a trial of adenosine to figure out the underlying rate. Leukocytosis unclear etiology. His white count today is 25,000, and currently patient is off antibiotics and staying afebrile. We will watch him closely. Patient currently on by mouth steroids which may have contributed to her increased white count. We will continue to monitor the white count. DVT both lower extremity and right upper extremity-we'll continue on IV heparin as well as Coumadin. INR today is 1.83. Discussed with patient the care plan.
--- NOTE | 2016-06-16 15:03 | PN- Cardiology ---
Subjective Subjective: No complaints. On telemetry his heart rate remains in 140 beat per minute range despite IV Diltiazem. Blood pressure also borderline, precluding the ability to go up further on the IV Diltiazem. Objective Vital Signs and I&Os Vital Signs Date Time Temp Pulse Resp B/P B/P Pulse O2 O2 Flow FiO2 Mean Ox Delivery Rate 06/16 1008 102/58 06/16 0833 98.1 145 30 96/58 97 CPAP 06/16 0819 94 Nasal 2.0L Cannula 06/16 0338 141 96 06/16 0028 141 92 06/16 0000 BIPAP 06/15 2214 140 98 06/15 2200 98.7 144 20 90/70 97 CPAP 06/15 2104 144 90/70 06/15 1640 94 Nasal 2.0L Cannula 06/15 1600 Nasal 2.0L Cannula 06/15 1600 98.0 146 20 92/60 94 Nasal 2.5L Cannula Intake & Output 06/16 1600 06/16 0800 06/16 0000 06/15 1600 06/15 0800 06/15 0000 Intake Total 550 720 700 Output Total 300 750 350 250 450 Balance 250 -750 370 450 -450 Intake, IV 150 600 Intake, Oral 400 720 100 Output, Urine 300 750 350 250 450 Physical Exam: Well-developed, morbidly obese elderly male in no acute distress with nasal oxygen in place. Vital signs: See above. Neck: No JVD, no bruits. Lungs: Decreased breath sounds with occasional rhonchi. Heart: S1, S2 with no murmur, gallop, or rub appreciated. PMI not well felt. Abdomen: Soft, nontender, positive bowel sounds. Extremities: Trace edema. Current Medications: Current Medications Sig/Amadeo Start time Last Medication Dose Route Stop Time Status Admin Albuterol Sulfate 3 ML EVERY 4 HRS/AWAKE 06/12 1999 AC 06/15 INH 2005 Aspirin Buffered 81 MG DAILY 06/15 1000 AC 06/16 PO 1006 Atorvastatin Calcium 40 MG 1700 06/11 1700 AC 06/15 PO 1657 Carvedilol 12.5 MG BID 06/15 1000 AC 06/16 PO 1008 Diltiazem HCl 125 MG Q24H 06/16 0900 AC Sodium Chloride 100 ML IV Diltiazem HCl 125 MG Q24H 06/15 1100 DC 06/16 Dextrose/Water 100 ML IV 0805 Furosemide 40 MG .STK-MED ONE 06/15 1656 DC IV 06/15 1657 Furosemide 10 MG ONCE ONE 06/15 1500 DC 06/15 IV 06/15 1501 1656 Heparin Sodium 25,000 UNIT Q24H 06/15 0930 AC 06/16 (Porcine) IV 0806 Sodium Chloride 500 ML Insulin Aspart 0 TIDAC/HS 06/15 1700 AC 06/16 SC 1206 Insulin Detemir 15 UNITS BID 06/16 1000 AC 06/16 SC 1006 Insulin Detemir 12 UNITS BID 06/15 2200 DC 06/15 SC 2117 Ipratropium [place] 2.5 ML Q4 HRS NEEDED PRN 06/12 1130 AC 06/16 INH 1135 Lactobacillus 1 CAP DAILY 06/13 1129 AC 06/16 Acidophilus PO 1006 Omeprazole 40 MG BID 06/14 1000 AC 06/16 PO 1007 Patient Medication 1 ED .STK-MED ONE 06/16 1415 DC Teaching ED 06/16 1416 Prednisone 10 MG DAILY 06/20 1000 AC PO 06/22 0959 Prednisone 20 MG DAILY 06/18 1000 AC PO 06/20 0959 Prednisone 30 MG DAILY 06/16 1000 AC 06/16 PO 06/18 0959 1007 Prednisone 40 MG DAILY 06/14 1000 DC 06/15 PO 06/16 0959 1122 Tiotropium [place] 1 PUF DAILY 06/11 1000 AC 06/16 INH 1207 Warfarin Sodium 5 MG COUMADIN 1700 ONE 06/16 1700 AC PO 06/16 1701 Warfarin Sodium 2.5 MG COUMADIN 1700 ONE 06/15 1700 DC 06/15 PO 06/15 1701 1703 Results Last 48 Hrs of Labs/Mics: Laboratory Tests 06/16/16 0630: Anion Gap 6, Estimated GFR 49 L, BUN/Creatinine Ratio 22.1, Magnesium 2.0, PT 19.1 H, INR 1.83 H, APTT > 120 *H, CBC w Diff MAN DIFF ORDERED, RBC 3.26 L, MCV 87.1, MCH 27.9, RDW 18.0 H, MPV 9.0, Gran % 85.4 H, Lymphocytes % 8.5 L, Monocytes % 6.1, Eosinophils % 0, Basophils % 0 L, Absolute Granulocytes 21.4 H, Segmented Neutrophils 82 H, Band Neutrophils 1, Absolute Lymphocytes 2.1, Lymphocytes 6 L, Monocytes 7, Absolute Monocytes 1.5 H, Absolute Eosinophils 0 , Absolute Basophils 0, Metamyelocytes 3 H, Myelocytes 1 H, Platelet Estimate ADEQUATE, Polychromasia 1+, Hypochromic-Microcytic 2+, Poikilocytosis 1+, Anisocytosis 1+, PUBS MCHC 32.0 L 06/15/16 1800: APTT 88 H 06/15/16 0615: Anion Gap 9, Estimated GFR 49 L, BUN/Creatinine Ratio 20.0, PT 21.4 H, INR 2.05 H, CBC w Diff MAN DIFF ORDERED, RBC 3.14 L, MCV 87.5, MCH 27.7, RDW 17.8 H, MPV 8.6, Gran % 87.8 H, Lymphocytes % 6.4 L, Monocytes % 5.8, Eosinophils % 0, Basophils % 0 L, Absolute Granulocytes 19.1 H, Segmented Neutrophils 90 H, Absolute Lymphocytes 1.4, Lymphocytes 4 L, Monocytes 4, Absolute Monocytes 1.3 H, Absolute Eosinophils 0, Absolute Basophils 0, Metamyelocytes 2 H, Platelet Estimate VERIFIED BY SMEAR, Polychromasia 1+, Poikilocytosis 1+, Anisocytosis 1+ , Ovalocytes 1+, PUBS MCHC 31.6 L Recent Imaging Studies: ECG (06/15/2016) sinus tachycardia versus atrial flutter with 2:1 block, LP FB, RBBB, indeterminate age inferior wall myocardial infarction. Probably no significant change when compared to previous tracing (06/11/2016). Assessment/Plan Assessment/Plan 76-year-old morbidly obese male with a history of former heavy tobacco use, COPD on home oxygen with previous exacerbations, obesity hyperventilation syndrome, JUANITO on CPAP, previous stroke, CKD, chronic anemia, HTN, HLD, DM, and CAD (s/p IN's by ECG/LV systolic dysfunction with previous HF s/p CABG 2010 at [facility] who presented via ambulance from his ECF ([facility]) with AMS, hypercarbic and hypoxemic respiratory failure secondary to HF, +/-mild COPD exacerbation who was additionally found to have partially occlusive bilateral LE DVTs for which anticoagulation was initiated at VTE dosing. Recommendations: * Continue on telemetry. Remains tachycardic (ST vs. Aflutter w/ 2:1 block) on IV Diltiazem 5 mg/hr with borderline blood pressure. * Can consider starting Digoxin with 0.75 mg total load (0.25 mg IV every 6 hours 3) followed by 0.125 mg daily with level checked at steady state. Should be able to distinguish sinus tachycardia versus atrial flutter with slowing of heart rate. * Another option would be to consider IV Adenosine 6 mg followed by 12 mg, but need to be cognizant of potential for further hypotension.Would not choose this option unless we are sure that Mr. David is volume replete. * Agree with pulmonary medicine, that given his history of previous GI bleeding, warfarin preferable to NOACs. * Continue oxygen, TRC, steroids, etc. as per pulmonary medicine. * Check all stools for occult blood. * Given known CAD would maintain hemoglobin at or above 8.0 g/dl. Continue telemetry? Yes
[2016-06-16 17:01] VITALS: BP 92/56
[2016-06-16 19:16] LABS: PTT 91 SEC (25-37)
[2016-06-16 23:00] VITALS: BP 112/62
[2016-06-17 03:32] LABS: ABSOLUTE BASOPHIL COUNT 0 /CUMM (0.0-0.2); ABSOLUTE EOSINOPHIL COUNT 0 /CUMM (0.0-0.7); ABSOLUTE LYMPH COUNT 1.3 /CUMM (1.2-3.4); BASOPHIL % 0.1 % (0.0-2.0); EOSINOPHIL % 0 % (0-5); GRANULOCYTE % 90.1 % (42.2-75.2); HEMATOCRIT 26.9 % (42-52); MEAN CORPUSCULAR HGB 27.4 PG (27.0-31.0); MEAN CORPUSCULAR HGB CONC 31.4 G/DL (33.0-37.0); MEAN CORPUSCULAR VOLUME 87.3 FL (80.0-94.0); MEAN PLATELET VOLUME 8.5 FL (7.4-10.4); PLATELET COUNT 339 /CUMM (130-400); RED BLOOD CELL CT 3.09 /CUMM (4.70-6.10); WHITE BLOOD CELL COUNT 23.3 /CUMM (4.8-10.8)
[2016-06-17 03:38] LABS: PT 22.4 SEC (9.4-12.5)
[2016-06-17 03:40] LABS: PTT 92 SEC (25-37)
--- NOTE | 2016-06-17 07:46 | PN- Housestaff ---
Subjective Follow-up For: Tachycardia DVT Acute kidney injury Leukocytosis Complaints: no complaints Tele-Events Since Last Visit: Converted from (?sinus) tachycardia to atrial flutter, heart rate 140 now in 90s. Subjective: I followed up and examined the patient today. He is resting comfortably in his bed, offers no complaints, still requiring additional oxygen. Heart rate and rhythm has changed overnight after introducing digoxin as noted in telemetry event above. No additional issues. Review of Systems Constitutional: Reports: no symptoms. Objective Last 24 Hrs of Vital Signs/I&O Vital Signs Date Time Temp Pulse Resp B/P B/P Pulse O2 O2 Flow FiO2 Mean Ox Delivery Rate 06/17 0757 97.7 50 22 112/74 95 CPAP 06/17 0753 95 BIPAP 2.0L 06/17 0556 110 100/58 06/17 0059 140 102/60 06/17 0012 141 97 06/17 0000 BIPAP 06/16 2300 98.0 144 18 112/62 94 BIPAP 06/16 2206 140 98 06/16 2124 144 112/60 06/16 1909 144 100/58 06/16 1701 97.9 146 33 92/56 94 06/16 1654 97 Nasal 2.0L Cannula 06/16 1615 93 Nasal 2.0L Cannula Intake & Output 06/17 1600 06/17 0800 06/17 0000 Intake Total 252 332.4 Output Total 300 250 Balance -48 82.4 Intake, IV 152 182.4 Intake, Oral 100 150 Number 0 0 Bowel Movements Output, Urine 300 250 Physical Exam General Appearance: Alert, Oriented X3, Cooperative, No Acute Distress Other Physical Findings: Skin: No Rashes, No Breakdown HEENT: Atraumatic, PERRLA, EOMI, Mucous Membr. moist/pink Neck: Supple, No JVD Cardiovascular: Regular Rate, Normal S1, Normal S2 Lungs: b/l decreased breath sound on Auscultation Abdomen: Normal Bowel Sounds, Soft Neurological: no change than yesterday, grossly intact Extremities: No Clubbing, No Cyanosis, Edema present b/l, Normal Pulses Vascular: Pulses Symmetrical Current Medications: Current Medications Sig/Amadeo Start time Last Medication Dose Route Stop Time Status Admin Albuterol Sulfate 3 ML EVERY 4 HRS/AWAKE 06/12 1999 AC 06/17 INH 0750 Aspirin Buffered 81 MG DAILY 06/15 1000 AC 06/16 PO 1006 Atorvastatin Calcium 40 MG 1700 06/11 1700 AC 06/16 PO 1609 Carvedilol 12.5 MG BID 06/15 1000 AC 06/16 PO 2124 Digoxin 0.125 MG 1700 06/17 1700 AC PO Digoxin 0.25 MG Q6 06/16 1800 DC 06/17 IV 06/17 0601 0556 Diltiazem HCl 125 MG Q24H 06/16 0900 DC Sodium Chloride 100 ML IV Heparin Sodium 25,000 UNIT Q24H 06/15 0930 AC 06/16 (Porcine) IV 0806 Sodium Chloride 500 ML Insulin Aspart 0 TIDAC/HS 06/15 1700 AC 06/16 SC 2106 Insulin Detemir 15 UNITS BID 06/16 1000 AC 06/16 SC 2107 Ipratropium [place] 2.5 ML Q4 HRS NEEDED PRN 06/12 1130 AC 06/16 INH 1135 Lactobacillus 1 CAP DAILY 06/13 1129 AC 06/16 Acidophilus PO 1006 Omeprazole 40 MG BID 06/14 1000 AC 06/16 PO 2106 Patient Medication 1 ED .STK-MED ONE 06/16 1415 PR Teaching ED 06/16 1416 Prednisone 10 MG DAILY 06/20 1000 AC PO 06/22 0959 Prednisone 20 MG DAILY 06/18 1000 AC PO 06/20 0959 Prednisone 30 MG DAILY 06/16 1000 AC 06/16 PO 06/18 0959 1007 Tiotropium [place] 1 PUF DAILY 06/11 1000 AC 06/16 INH 1207 Warfarin Sodium 5 MG COUMADIN 1700 ONE 06/16 1700 DC 06/16 PO 06/16 1701 1609 Last 24 Hrs of Lab/Sum[place] Results Last 24 Hrs of Labs/Mics: Laboratory Tests 06/17/165: PT 22.4 H, INR 2.15 H 06/17/16 0315: Anion Gap 9, Estimated GFR 49 L, BUN/Creatinine Ratio 22.9, Magnesium 2.0, APTT 92 H, CBC w Diff MAN DIFF ORDERED, RBC 3.09 L, MCV 87.3, MCH 27.4, RDW 18.0 H , MPV 8.5, Gran % 90.1 H, Lymphocytes % 5.6 L, Monocytes % 4.2, Eosinophils % 0, Basophils % 0.1, Absolute Granulocytes 21.0 H, Segmented Neutrophils 88 H, Absolute Lymphocytes 1.3, Lymphocytes 6 L, Monocytes 4, Absolute Monocytes 1.0 H, Absolute Eosinophils 0, Absolute Basophils 0, Metamyelocytes 1, Myelocytes 1 H, Nucleated RBCs 1 H, Platelet Estimate ADEQUATE, Polychromasia 1+, Poikilocytosis 1+, Basophilic Stippling 1+, Anisocytosis 2+, Ovalocytes FEW, PUBS MCHC 31.4 L, Digoxin 1.8 06/16/16 1829: APTT 91 H Assessment/Plan Assessment: 76-year-old gentleman who resides at [place] brought in for lethargy and confusion. PMH type 2 diabetes, CAD S/P CABG, COPD on 2 LNC, HFrEF of 50% on , stage I diastolic dysfunction, RVSP 42mmHg, CVA, cpap on nocturnal bipaP, stage III cKD, HTN, recent admissions for CHF/COPD exacerbation in June 2015, March 2016. Problem list: 1. Elevated troponins: Likely type II 2. SIRS 3. Persistent tachycardia 4. Hypokalemia, resolved 5. DVT of RUE, and B/L lower ext 6. Lethargy/AMS, better 7. Diabetes 8. JUANITO on CPAP Of note, patient's son Mr. Alejo David, has pain constantly in touch and is being updated about the patient's status. He has been asked to discuss the plan of care for the patient multiple times. #Persistent tachycardia Patient remained in persistent tachycardia throughout the night. He was in tachycardia with rate between 130-140. Venous Doppler bilateral lower extremities and right upper ext shows DVT. * A trial of Carotid sinus massage was done on 06/16/16 and loading dose of Digoxin was given yesterday evening which changed/slowed the rhythm to 90s overnight and the rhythm could be analyzed to be atrial flutter. Cardizem was stopped prior to Digoxin yesterday. Will continue Digoxin (next dose tomorrow) for now and watch digoxin level tomorrow evening, and watch BEP renee potassium, per cardiology consult. * On IV heparin with Coumadin for anticoagulation, given the hx of GI bleeding warfarin (coumadin) is reversible. #Systolic congestive heart failure with tachycarida Patient has history of congestive heart failure with ejection fraction 40%. 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 No more Cardizem running. #Possible gram-negative pneumonia, treated Patient received a course of ceftazidime and vancomycin for possible Gram- negative pneumonia, and is currently being monitored off antibiotics. #Elevated troponins * likely demand ischemia * continue ASA 81mg # Diabetes mellitus * Accu-Cheks * Insulin sliding scale * Levemir #JUANITO on CPAP * We'll continue BiPAP and assess for respiratory improvement. * Pulmonology recommendations followed #persistant leucocytosis, ?due to steroid use #chronic renal insufficency: creatinine today is 1.4, will monitor DNR/DNI, diabetic diet, eliqus for DVT prophylaxis. Problem List: 1. Atrial flutter 2. DVT (deep venous thrombosis) 3. HFrEF (heart failure with reduced ejection fraction) 4. Leukocytosis 5. Renal insufficiency Pain Ratin Pain Location: - Pain Goal: Pain 4 or less Pain Plan: prn Tomorrow's Labs & Rationales: INR, BEP, Mg, Digoxin level, CBC, to dose coumadin, Digoxin given, check potassium Consulting Request: Consulting Specialty: Cardiology
[2016-06-17 07:57] VITALS: BP 112/74
--- NOTE | 2016-06-17 08:33 | PN- Pulmonary ---
Subjective HPI/Critical Care Issues: pt seen and examined heart rate reduced significantly hemodynamically stable on bipap overnight feeling at baseline this am Objective Current Medications: Current Medications Sig/Amadeo Start time Last Medication Dose Route Stop Time Status Admin Albuterol Sulfate 3 ML EVERY 4 HRS/AWAKE 06/11 2000 AC 06/17 INH 0750 Aspirin Buffered 81 MG DAILY 06/15 1000 AC 06/16 PO 1006 Atorvastatin Calcium 40 MG 1700 06/11 1700 AC 06/16 PO 1609 Carvedilol 12.5 MG BID 06/15 1000 AC 06/16 PO 2124 Digoxin 0.125 MG 1700 06/17 1700 UNVr PO Digoxin 0.25 MG Q6 06/16 1800 DC 06/17 IV 06/17 0601 0556 Diltiazem HCl 125 MG Q24H 06/16 0900 DC Sodium Chloride 100 ML IV Diltiazem HCl 125 MG Q24H 06/15 1100 DC 06/16 Dextrose/Water 100 ML IV 0805 Heparin Sodium 25,000 UNIT Q24H 06/15 0930 AC 06/16 (Porcine) IV 0806 Sodium Chloride 500 ML Insulin Aspart 0 TIDAC/HS 06/15 1700 AC 06/16 SC 2106 Insulin Detemir 15 UNITS BID 06/16 1000 AC 06/16 SC 2107 Insulin Detemir 12 UNITS BID 06/15 2200 DC 06/15 SC 2117 Ipratropium [place] 2.5 ML Q4 HRS NEEDED PRN 06/12 1130 AC 06/16 INH 1135 Lactobacillus 1 CAP DAILY 06/13 1129 AC 06/16 Acidophilus PO 1006 Omeprazole 40 MG BID 06/14 1000 AC 06/16 PO 2106 Patient Medication 1 ED .STK-MED ONE 06/16 1415 DC Teaching ED 06/16 1416 Prednisone 10 MG DAILY 06/20 1000 AC PO 06/22 0959 Prednisone 20 MG DAILY 06/18 1000 AC PO 06/20 0959 Prednisone 30 MG DAILY 06/16 1000 AC 06/16 PO 06/18 0959 1007 Prednisone 40 MG DAILY 06/14 1000 DC 06/15 PO 06/16 0959 1122 Tiotropium [place] 1 PUF DAILY 06/11 1000 AC 06/16 INH 1207 Warfarin Sodium 5 MG COUMADIN 1700 ONE 06/16 1700 DC 06/16 PO 06/16 1701 1609 Vital Signs & I&O Last 24 Hrs of Vitals and I&O: Vital Signs Date Time Temp Pulse Resp B/P B/P Pulse O2 O2 Flow FiO2 Mean Ox Delivery Rate 06/17 0757 97.7 50 22 112/74 95 CPAP 06/17 0753 95 BIPAP 2.0L 06/17 0556 110 100/58 06/17 0059 140 102/60 06/17 0012 141 97 06/17 0000 BIPAP 06/16 2300 98.0 144 18 112/62 94 BIPAP 06/16 2206 140 98 06/16 2124 144 112/60 06/16 1909 144 100/58 06/16 1701 97.9 146 33 92/56 94 06/16 1654 97 Nasal 2.0L Cannula 06/16 1615 93 Nasal 2.0L Cannula 06/16 1008 102/06/16 0833 98.1 145 30 96/58 97 CPAP Intake & Output 06/17 1600 06/17 0800 06/17 0000 Intake Total 252 332.4 Output Total 300 250 Balance -48 82.4 Intake, IV 152 182.4 Intake, Oral 100 150 Number 0 0 Bowel Movements Output, Urine 300 250 Exam Other Physical Findings: gen awake and alert heent ncat cvs s1, s2, tachycardia lungs bilateral scattered rhonchi abd soft bs+ ext 1+ edema Results Last 24 Hrs of Lab Results: Laboratory Tests 06/17/16314: PT 22.4 H, INR 2.15 H 06/17/16314: Anion Gap 9, Estimated GFR 49 L, BUN/Creatinine Ratio 22.9, Magnesium 2.0, APTT 92 H, CBC w Diff MAN DIFF ORDERED, RBC 3.09 L, MCV 87.3, MCH 27.4, RDW 18.0 H , MPV 8.5, Gran % 90.1 H, Lymphocytes % 5.6 L, Monocytes % 4.2, Eosinophils % 0, Basophils % 0.1, Absolute Granulocytes 21.0 H, Segmented Neutrophils 88 H, Absolute Lymphocytes 1.3, Lymphocytes 6 L, Monocytes 4, Absolute Monocytes 1.0 H, Absolute Eosinophils 0, Absolute Basophils 0, Metamyelocytes 1, Myelocytes 1 H, Nucleated RBCs 1 H, Platelet Estimate ADEQUATE, Polychromasia 1+, Poikilocytosis 1+, Basophilic Stippling 1+, Anisocytosis 2+, Ovalocytes FEW, PUBS MCHC 31.4 L, Digoxin Pending 04/27/17 1829: APTT 91 H Impression/Plan Impression/Plan Impression/Plan: Impression 76 year old man * improved hypercarbic and hypoxemic respiratory failure secondary to underlying CHF * COPD is chornic and appears compensated, however we are treating for a possible mild exacerbation that can be due to fluid overload and underlying atelectasis * leukocytosis likely steroid induced, no underlying infiltrates * partially occlussive bilateral LE DVTs 06/12 Plan - continue a/c for VTE - DVTs - coumadin bridge - INR 2-3 goal - trc/nebs - off abx - bipap nocturnal and prn - prednisone taper as ordered - diuresis, f/u ins/outs, daily weights - f/u cardiology recommendations, tachycardia improved DVT prophylaxis at all times
--- NOTE | 2016-06-17 10:42 | PN- Cardiology ---
Subjective Subjective: No complaints. On telemetry, Mr. David appeared to "break" from atrial flutter with 2:1 block to variable block at approximately 1:35 AM today with discernible "f" waves. Telemetry now reveals atrial flutter with variable block and an average ventricular response in the 70s-90s bpm range after digoxin load with 0.75 mg. Objective Vital Signs and I&Os Vital Signs Date Time Temp Pulse Resp B/P B/P Pulse O2 O2 Flow FiO2 Mean Ox Delivery Rate 06/17 0757 97.7 50 22 112/74 95 CPAP 06/17 0753 95 BIPAP 2.0L 06/17 0556 110 100/58 06/17 0059 140 102/60 06/17 0012 141 97 06/17 0000 BIPAP 06/16 2300 98.0 144 18 112/62 94 BIPAP 06/16 2206 140 98 06/16 2124 144 112/60 06/16 1909 144 100/58 06/16 1701 97.9 146 33 92/56 94 06/16 1654 97 Nasal 2.0L Cannula 06/16 1615 93 Nasal 2.0L Cannula 06/16 1008 102/58 Intake & Output 06/17 1600 06/17 0800 06/17 0000 06/16 1600 06/16 0800 06/16 0000 Intake Total 252 332.4 550 Output Total 300 250 300 750 Balance -48 82.4 250 -750 Intake, IV 152 182.4 150 Intake, Oral 100 150 400 Number 0 0 Bowel Movements Output, Urine 300 250 300 750 Physical Exam: Well-developed, morbidly obese elderly male in no acute distress with nasal oxygen in place. Vital signs: See above. No JVD, no bruits. Lungs: Decreased breath sounds with occasional rhonchi. Heart: S1, S2 (irregularly, irregular). No murmur, gallops, or rub appreciated. Abdomen: Soft, nontender, positive bowel sounds. Extremities: Trace edema. Current Medications: Current Medications Sig/Amadeo Start time Last Medication Dose Route Stop Time Status Admin Albuterol Sulfate 3 ML EVERY 4 HRS/AWAKE 06/12 1999 AC 06/17 INH 0750 Aspirin Buffered 81 MG DAILY 06/15 1000 AC 06/16 PO 1006 Atorvastatin Calcium 40 MG 1700 06/11 1700 AC 06/16 PO 1609 Carvedilol 12.5 MG BID 06/15 1000 AC 06/16 PO 2124 Digoxin 0.125 MG 1700 06/17 1700 AC PO Digoxin 0.25 MG Q6 06/16 1800 DC 06/17 IV 06/17 0601 0556 Diltiazem HCl 125 MG Q24H 06/16 0900 DC Sodium Chloride 100 ML IV Heparin Sodium 25,000 UNIT Q24H 06/15 0930 AC 06/16 (Porcine) IV 0806 Sodium Chloride 500 ML Insulin Aspart 0 TIDAC/HS 06/15 1700 AC 06/16 SC 2106 Insulin Detemir 15 UNITS BID 06/16 1000 AC 06/16 SC 2107 Ipratropium [place] 2.5 ML Q4 HRS NEEDED PRN 06/12 1130 AC 06/16 INH 1135 Lactobacillus 1 CAP DAILY 06/13 1129 AC 06/16 Acidophilus PO 1006 Omeprazole 40 MG BID 06/14 1000 AC 06/16 PO 2106 Patient Medication 1 ED .STK-MED ONE 06/16 1415 DC Teaching ED 06/16 1416 Prednisone 10 MG DAILY 06/20 1000 AC PO 06/22 0959 Prednisone 20 MG DAILY 06/18 1000 AC PO 06/20 0959 Prednisone 30 MG DAILY 06/16 1000 AC 06/16 PO 06/18 0959 1007 Tiotropium [place] 1 PUF DAILY 06/11 1000 AC 06/16 INH 1207 Warfarin Sodium 5 MG COUMADIN 1700 ONE 06/16 1700 DC 06/16 PO 06/16 1701 1609 Results Last 48 Hrs of Labs/Mics: Laboratory Tests 06/17/16314: PT 22.4 H, INR 2.15 H 06/17/16314: Anion Gap 9, Estimated GFR 49 L, BUN/Creatinine Ratio 22.9, Magnesium 2.0, APTT 92 H, CBC w Diff MAN DIFF ORDERED, RBC 3.09 L, MCV 87.3, MCH 27.4, RDW 18.0 H , MPV 8.5, Gran % 90.1 H, Lymphocytes % 5.6 L, Monocytes % 4.2, Eosinophils % 0, Basophils % 0.1, Absolute Granulocytes 21.0 H, Segmented Neutrophils 88 H, Absolute Lymphocytes 1.3, Lymphocytes 6 L, Monocytes 4, Absolute Monocytes 1.0 H, Absolute Eosinophils 0, Absolute Basophils 0, Metamyelocytes 1, Myelocytes 1 H, Nucleated RBCs 1 H, Platelet Estimate ADEQUATE, Polychromasia 1+, Poikilocytosis 1+, Basophilic Stippling 1+, Anisocytosis 2+, Ovalocytes FEW, PUBS MCHC 31.4 L, Digoxin 1.8 06/16/16 1829: APTT 91 H 06/16/16 0630: Anion Gap 6, Estimated GFR 49 L, BUN/Creatinine Ratio 22.1, Magnesium 2.0, PT 19.1 H, INR 1.83 H, APTT > 120 *H, CBC w Diff MAN DIFF ORDERED, RBC 3.26 L, MCV 87.1, MCH 27.9, RDW 18.0 H, MPV 9.0, Gran % 85.4 H, Lymphocytes % 8.5 L, Monocytes % 6.1, Eosinophils % 0, Basophils % 0 L, Absolute Granulocytes 21.4 H, Segmented Neutrophils 82 H, Band Neutrophils 1, Absolute Lymphocytes 2.1, Lymphocytes 6 L, Monocytes 7, Absolute Monocytes 1.5 H, Absolute Eosinophils 0 , Absolute Basophils 0, Metamyelocytes 3 H, Myelocytes 1 H, Platelet Estimate ADEQUATE, Polychromasia 1+, Hypochromic-Microcytic 2+, Poikilocytosis 1+, Anisocytosis 1+, PUBS MCHC 32.0 L 06/15/16 1800: APTT 88 H Assessment/Plan Assessment/Plan 76-year-old morbidly obese male with a history of former heavy tobacco use, COPD on home oxygen with previous exacerbations, obesity hyperventilation syndrome, JUANITO on CPAP, previous stroke, CKD, chronic anemia, HTN, HLD, DM, and CAD (s/p PR's by ECG/LV systolic dysfunction with previous HF s/p CABG 2010 at [facility] who presented via ambulance from his ECF ([facility]) with AMS, hypercarbic and hypoxemic respiratory failure secondary to HF, +/-mild COPD exacerbation who was additionally found to have partially occlusive bilateral LE DVTs for which anticoagulation was initiated at VTE dosing. Recommendations: * Telemetry reveals atrial flutter with variable ventricular response now reasonably well controlled after 0.75 mg IV loading dose, adjusted down given CKD. Start daily digoxin 0.125 mg daily in a.m. * Check "trough" digoxin level i.e., 6 to 12 (optimal) hours after tomorrow a.m. 's dosage. * Continue carvedilol 12.5 mg twice daily. IV diltiazem DC'd. * Continue warfarin anticoagulation or DVTs and atrial flutter. * Continue oxygen, TRC, steroids, etc. as per pulmonary medicine. * Continue to check all stools for occult blood. * Given known CAD would maintain hemoglobin at or above 8.0 g/dl. Continue telemetry? Yes
[2016-06-17 13:44] LABS: PTT 56 SEC (25-37)
--- NOTE | 2016-06-17 14:35 | PN- Att Addend ---
Attending MD Review Statement Attending Statement Attending MD Statement: examined this patient, discuss w/resident/PA/MANAGER DOMESTIC, agreed w/resident/PA/MANAGER DOMESTIC, reviewed EMR data (avail), discussed w/nursing, discussed w/ case mgmt Attending Assessment/Plan: Laboratory Tests 06/17/16 1316: APTT 56 H 06/17/16 0315: PT 22.4 H, INR 2.15 H 06/17/16 0315: Anion Gap 9, Estimated GFR 49 L, BUN/Creatinine Ratio 22.9, Magnesium 2.0, APTT 92 H, CBC w Diff MAN DIFF ORDERED, RBC 3.09 L, MCV 87.3, MCH 27.4, RDW 18.0 H , MPV 8.5, Gran % 90.1 H, Lymphocytes % 5.6 L, Monocytes % 4.2, Eosinophils % 0, Basophils % 0.1, Absolute Granulocytes 21.0 H, Segmented Neutrophils 88 H, Absolute Lymphocytes 1.3, Lymphocytes 6 L, Monocytes 4, Absolute Monocytes 1.0 H, Absolute Eosinophils 0, Absolute Basophils 0, Metamyelocytes 1, Myelocytes 1 H, Nucleated RBCs 1 H, Platelet Estimate ADEQUATE, Polychromasia 1+, Poikilocytosis 1+, Basophilic Stippling 1+, Anisocytosis 2+, Ovalocytes FEW, PUBS MCHC 31.4 L, Digoxin 1.8 06/16/16 1829: APTT 91 H Vital Signs Date Time Temp Pulse Resp B/P B/P Pulse O2 O2 Flow FiO2 Mean Ox Delivery Rate 06/17 0800 94 Nasal 2.0L Cannula 06/17 0757 97.7 50 22 112/74 95 CPAP 06/17 0753 95 BIPAP 2.0L 06/17 0556 110 100/58 06/17 0059 140 102/06/17 0012 141 97 06/17 0000 BIPAP 06/16 2300 98.0 144 18 112/62 94 BIPAP 06/16 2206 140 98 06/16 2124 144 112/60 06/16 1909 144 100/06/16 1701 97.9 146 33 92/56 94 06/16 1654 97 Nasal 2.0L Cannula 06/16 1615 93 Nasal 2.0L Cannula Patient seen and examined at bedside. Discussed with patient the care plan. Discussed with resident intern the care plan. Tachycardia secondary to atrial flutter-we gave a trial of dig loading yesterday and the heart rate came down and the underlying rhythm became apparent as atrial flutter with variable block. We will give another dose of by mouth digoxin tomorrow morning and repeated dig level tomorrow evening. His heart rate on telemetry is staying around 70-80. I discussed this with cardiology and they are okay with our current plan. We will also continue with Coreg at the current dose. His blood pressures are also holding better given that his heart rate is down. We will have to monitor his potassium closely given that the potassium is borderline high at 5.0 today. We will repeat the level tomorrow and if it is staying high will put him on a low potassium diet for now. Anticoagulation for atrial flutter. We will give him 5 mg of Coumadin today though his INR is therapeutic at 2.15 but it is likely secondary to his being on novel anticoagulation agents prior to starting on heparin and Coumadin. We decided to go for warfarin as patient has previous history of GI bleed secondary to duodenal ulcer. This was done after discussion with patient's son over the phone. Leukocytosis-patient remains afebrile and the leukocytosis is slightly better today. Likely secondary to stress and steroids. Monitor off antibiotics. We will recheck CBC in the morning.
[2016-06-17 16:46] VITALS: BP 120/76
--- NOTE | 2016-06-17 17:25 | Discharge Summary ---
Visit Information Visit Dates Admission Date: 06/13/16 Discharge Date: 06/22/2016 Hospital Course Course Attending Physician: LESLIE CHILDRESS MD Primary Care Physician: ELLA GARCIA MD Consulting Request: Consulting Specialty: Cardiology Hospital Course: 76-year-old gentleman who resides at [place] brought in for lethargy and confusion. PMH type 2 diabetes, CAD S/P CABG, COPD on 2 LNC, HFrEF of 50% on , stage I diastolic dysfunction, RVSP 42mmHg, CVA, or say on nocturnal CPAP, stage III VKD, HTN, recent admissions for CHF/COPD exacerbation in June 2015, March 2016. VS on admission: BP 1 02/24/1951, HR 140, RR 22, SPO2 99% on 3L NC, T 98.9 Pertinent labs on admission: WBC 21.9, 6% bandemia, H&H 9.1/28.6, d-dimer 3641, potassium 3.3, BUN/CR 16/1.5 Serial troponins: 0.29, 0.45, 0.48 AB.36/60/89/34/96% on 3.5 L NC He was admitted to telemetry floor and treated for these medical conditions #Persistent tachycardia- ATRIAL FLUTTER /DVT/elevated troponins Upon admission patient had persistent tachycardia of 130s and 140s with low Urine output. Ultrasound of the post legs and right upper extremity showed DVTs , nucleus and ruled out PE. patient was already on heparin due to elevated troponins, which subsequently changed to warfarin.aspirin was also added. Patient tachycardia was treated with IV Cardizem initially however due to lack of response we used digoxin for underlying disease of atrial flutter. We has stopped the Coreg and put the patient on metoprolol as well.clincial condition inproved.urine output normalized. Voiding trails should be done in STR after removing the SALAZAR. the blood pressure and heart rate were within acceptable range. DIG LEVEL AND inr SHOULD BE CHECKED 2 TIMES IN WEEK for 1 WEEK AND DOSES SHOULD BE ADJUSTED ACCORDINGLY.CBC should be checked in 1 week. for checking WBC count, he was on prednisone taper taper and his wbc was elavatd during the hospitalization. INR SHOULD BE CHECKED WITHIN THREE DAYS OF DISCHARGE TO DOSE COUMADIN AND FOLLOWED UP WITH PCP WITH THE RESULTS. # Diabetes Since the patient was on a steroid, we tweaked long-acting and short-acting insulin for the patient blood sugars were relatively controlled. Patient was discharged with new dosages to [facility]. #JUANITO on CPAP/COPD exacerbation/rule out PNA Initially patient was put on IV esterase, IV vancomycin and IV ceftazidime. Antibiotics were DC'd after 3 days and patient was put on steroid tapering during the hospitalization. No fevers or positive blood cultures were observed. #Elevated troponins No evidence of ST-T elevations on serial EKGs, troponin is trending down. Echocardiogram showed dilated cardiomyopathy with EF of 40%. Patient was put on IV heparin and was bridged to warfarin.aspirin was aslo added. patient should be in PPI daily. Allergies: Coded Allergies: NO KNOWN ALLERGIES (04/17/15) Pertinent Lab Results: Laboratory Tests 06/22 06/21 0710 1830 Chemistry Sodium (137 - 145 mmol/L) 138 Potassium (3.5 - 5.1 mmol/L) 4.5 Chloride (98 - 107 mmol/L) 97 L Carbon Dioxide (22 - 30 mmol/L) 36 H Anion Gap (5 - 16) 6 BUN (9 - 20 mg/dL) 33 H Creatinine (0.7 - 1.2 mg/dL) 1.0 Estimated GFR (>60 ml/min) > 60 BUN/Creatinine Ratio (7 - 25 %) 33.0 H Coagulation PT (9.4 - 12.5 SEC) 23.9 H INR (0.90 - 1.17) 2.29 H Hematology CBC w Diff NO MAN DIFF REQ WBC (4.8 - 10.8 /CUMM) 17.3 H RBC (4.70 - 6.10 /CUMM) 3.14 L Hgb (14.0 - 18.0 G/DL) 8.8 L Hct (42 - 52 %) 27.9 L MCV (80.0 - 94.0 FL) 88.7 MCH (27.0 - 31.0 PG) 28.0 RDW (11.5 - 14.5 %) 19.3 H Plt Count (130 - 400 /CUMM) 256 MPV (7.4 - 10.4 FL) 8.4 Gran % (42.2 - 75.2 %) 76.9 H Lymphocytes % (20.5 - 51.1 %) 14.6 L Monocytes % (1.7 - 9.3 %) 7.0 Eosinophils % (0 - 5 %) 1.3 Basophils % (0.0 - 2.0 %) 0.2 Absolute Granulocytes (1.4 - 6.5 /CUMM) 13.3 H Absolute Lymphocytes (1.2 - 3.4 /CUMM) 2.5 Absolute Monocytes (0.10 - 0.60 /CUMM) 1.2 H Absolute Eosinophils (0.0 - 0.7 /CUMM) 0.2 Absolute Basophils (0.0 - 0.2 /CUMM) 0 PUBS MCHC (33.0 - 37.0 G/DL) 31.6 L Toxicology Digoxin (0.8 - 2.0 ng/mL) 1.4 06/21 06/20 0751 0610 Chemistry Sodium (137 - 145 mmol/L) 140 138 Potassium (3.5 - 5.1 mmol/L) 4.1 4.7 Chloride (98 - 107 mmol/L) 96 L 98 Carbon Dioxide (22 - 30 mmol/L) 36 H 32 H Anion Gap (5 - 16) 7 8 BUN (9 - 20 mg/dL) 28 H 34 H Creatinine (0.7 - 1.2 mg/dL) 1.1 1.1 Estimated GFR (>60 ml/min) > 60 > 60 BUN/Creatinine Ratio (7 - 25 %) 25.5 H 30.9 H Magnesium (1.6 - 2.3 mg/dL) 1.8 Coagulation PT (9.4 - 12.5 SEC) 25.0 H 36.6 H INR (0.90 - 1.17) 2.40 H 3.53 H Hematology CBC w Diff NO MAN DIFF REQ MAN DIFF ORDERED WBC (4.8 - 10.8 /CUMM) 16.3 H 17.6 H RBC (4.70 - 6.10 /CUMM) 3.18 L 3.06 L Hgb (14.0 - 18.0 G/DL) 8.7 L 8.6 L Hct (42 - 52 %) 27.9 L 27.2 L MCV (80.0 - 94.0 FL) 87.7 88.8 MCH (27.0 - 31.0 PG) 27.3 28.2 RDW (11.5 - 14.5 %) 19.2 H 19.1 H Plt Count (130 - 400 /CUMM) 292 306 MPV (7.4 - 10.4 FL) 9.0 8.9 Gran % (42.2 - 75.2 %) 79.2 H 91.6 H Lymphocytes % (20.5 - 51.1 %) 11.3 L 4.2 L Monocytes % (1.7 - 9.3 %) 6.1 4.1 Eosinophils % (0 - 5 %) 3.4 0.1 Basophils % (0.0 - 2.0 %) 0 L 0 L Absolute Granulocytes (1.4 - 6.5 /CUMM) 12.9 H 16.1 H Segmented Neutrophils (42.2 - 75.2 %) 91 H Band Neutrophils (0.0 - 5.0 %) 1 Absolute Lymphocytes (1.2 - 3.4 /CUMM) 1.9 0.7 L Lymphocytes (20.5 - 51.1 %) 4 L Monocytes (1.7 - 9.3 %) 2 Absolute Monocytes (0.10 - 0.60 /CUMM) 1.0 H 0.7 H Absolute Eosinophils (0.0 - 0.7 /CUMM) 0.6 0 Absolute Basophils (0.0 - 0.2 /CUMM) 0 0 Myelocytes (0 - 0 %) 2 H Polychromasia 1+ Hypochromic-Microcytic 1+ Poikilocytosis 1+ Basophilic Stippling 1+ Anisocytosis 1+ Elliptocytes 1+ PUBS MCHC (33.0 - 37.0 G/DL) 31.1 L 31.7 L Toxicology Digoxin (0.8 - 2.0 ng/mL) 0.9 PATIENT: FLORENTINO MARIE PRESENT AGE: 76 PATIENT ACCOUNT NO: [id number] : 41 [facility] ORDERING PHYSICIAN: KENA BERNSTEIN MD SERVICE DATE: 06/14/16- EXAM TYPE: CAT - CT CHEST WO IV CONTRAST EXAMINATION: CT CHEST WITHOUT CONTRAST CLINICAL INFORMATION: Tachycardia. Hypoxia. Rule out pneumonia. COMPARISON: CT scan of the chest dated 06/26/2015. TECHNIQUE: Multidetector volumetric CT imaging of the chest was obtained noncontrast. Sagittal and coronal reformations were obtained. DLP: 684.26 mGy-cm. FINDINGS: LUNGS: Low lung volumes are seen with dependent atelectasis in the left upper lobe and both lower lobes. Small bilateral pleural effusions are seen. No focal consolidation/pneumonia is noted. Central airways are mildly narrowed but patent. LYMPHOVASCULAR STRUCTURES: The patient is status post median sternotomy and CABG surgery. Four-chamber enlargement of the heart is seen. Prominent epicardiac and mediastinal fat is noted. Moderate atherosclerotic calcifications of the aorta and coronary arteries is seen. The central pulmonary arteries are enlarged, suggesting pulmonary arterial hypertension. Aortic size normal. No pericardial effusion. No mediastinal, hilar or axillary adenopathy or free fluid collection. THYROID GLAND: Unremarkable to the extent included. CHEST WALL: Glandular density seen in the subareolar locations of both breasts, slightly asymmetric and more prominent on the left side than the right, most likely representing asymmetric gynecomastia. There is asymmetric stranding and edema seen in the left lateral soft tissues of the lower chest and the upper abdomen, incompletely included on this exam, unclear if related to focal contusion or focal anasarca. UPPER ABDOMEN: Included portions of the solid organs in the upper abdomen unremarkable. BONES: The patient is status post median sternotomy. Moderate vertebral spondylosis is seen throughout the cervical and thoracic and upper lumbar spine. IMPRESSION: 1. No evidence of focal pneumonia. Low lung volumes are noted with bilateral scattered areas of dependent atelectasis. 2. Four-chamber enlargement of the heart, suspicious for dilated cardiomyopathy. 3. Enlarged central pulmonary arteries, suggesting pulmonary arterial hypertension. 4. Moderate coronary artery calcifications. 5. Asymmetric stranding and edema in the left lateral soft tissues of the lower chest and the upper abdomen, possibly due to contusion or focal anasarca. Clinical correlation requested. 6. Bilateral subareolar breast densities, most consistent with asymmetric gynecomastia. DICTATED BY: RUTH HUSSEIN MD DATE/TIME DICTATED:06/14/161650 MD SENIOR RESEARCH SCIENTIST:JOSUE DATE/TIME TRANSCRIBED:06/14/161650 CONFIDENTIAL, DO NOT COPY WITHOUT APPROPRIATE AUTHORIZATION. <Electronically signed in Other Vendor System> SIGNED BY: RUTH HUSSEIN MD 1707 PATIENT: FLORENTINO MARIE PRESENT AGE: 76 PATIENT ACCOUNT NO: [id number] : 41 LOCATION: 1NO ORDERING PHYSICIAN: YAMILET CASTILLO MD SERVICE DATE: 06/13/16 EXAM TYPE: US - US-DUPLEX VENOUS EXTREM UNI EXAMINATION: EXAMINATION: DUPLEX DOPPLER UPPER EXTREMITY, right CLINICAL INFORMATION: Edema. Swelling. History of DVT . Swelling right lower arm below the IV site. COMPARISON: None. TECHNIQUE: Duplex Doppler performed of right upper extremity deep veins with grayscale, color Doppler and spectral Doppler examination. FINDINGS: There is occlusive thrombus in the right subclavian vein extending into the axillary vein in the proximal basilic vein. The thrombus extends to the mid brachial vein. The cephalic vein remains patent. The veins in the forearm are patent. Specific imaging was performed over the upper forearm area in the region of redness. No abscess or focal fluid collection. IMPRESSION: Occlusive deep vein thrombosis. This critical result was discussed with Dr. Martins on 06/13/2016, 9:17 PM and it was ascertained that the content and urgency of the report was understood at the time of direct communication. DICTATED BY: OSMAR VILLALOBOS MD DATE/TIME DICTATED:06/13/162104 MD SENIOR RESEARCH SCIENTIST:JOSUE DATE/TIME TRANSCRIBED:06/13/162104 CONFIDENTIAL, DO NOT COPY WITHOUT APPROPRIATE AUTHORIZATION. <Electronically signed in Other Vendor System> SIGNED BY: OSMAR VILLALOBOS MD 06/13/162120 PATIENT: FLORENTINO MARIE PRESENT AGE: 76 PATIENT ACCOUNT NO: [id number] : 41 LOCATION: 1NO ORDERING PHYSICIAN: SULEMAN SINCLAIR MD SERVICE DATE: 06/13/16163 EXAM TYPE: NUC - LUNG SCAN (V/Q) EXAMINATION: PULMONARY VENTILATION PERFUSION STUDY CLINICAL INFORMATION: Tachycardia, DVT bilateral legs. COMPARISON: No previous lung scan is available for comparison. A radiograph of the chest dated 06/10/2016 is available for comparison. TECHNIQUE: Serial gamma scintillation camera images were obtained over the posterior chest during the single breath, equilibrium rebreathing and washout of 10.1 mCi Xe 133 gas. The patient then received 4.3 mCi Tc-99m MAA intravenously and a 6-view perfusion study was performed. FINDINGS: Ventilation images: On the single breath and equilibrium images there is diffusely decreased activity in the left lung and this is most prominent in the left mid lung field and laterally in the left lower lobe. Minimal heterogeneity is present in the right lung, most prominently medially at the right lung base.. During the washout phase there is mildly to moderately prolonged retention bilaterally but this is slightly more severe on the left. Perfusion images: No segmental perfusion defects are present. There is a diffuse decrease in activity in the left lung and this is more prominent in the left mid lung field and laterally at the left lung base. A nonsegmental perfusion abnormality medially at the right lung base is present and is well matched to ventilatory abnormality in this region. The ventilation and perfusion images are very well matched. The most recent chest radiograph dated 06/10/2016 shows opacity at the left lung base and atelectasis at the right lung base. IMPRESSION: Very low probability of pulmonary embolism. DICTATED BY: BELEN MARK MD DATE/TIME DICTATED:06/13/161729 MD SENIOR RESEARCH SCIENTIST:JOSUE DATE/TIME TRANSCRIBED:06/13/161729 CONFIDENTIAL, DO NOT COPY WITHOUT APPROPRIATE AUTHORIZATION. <Electronically signed in Other Vendor System> SIGNED BY: BELEN MARK MD 1737 PATIENT: FLORENTINO MARIE PRESENT AGE: 76 PATIENT ACCOUNT NO: [id number] : 41 LOCATION: 1NO ORDERING PHYSICIAN: RADHA PAULINO MD SERVICE DATE: 06/12/16- EXAM TYPE: US - US-EXT BILAT VENOUS DOPPLER EXAMINATION: DOPPLER VENOUS ULTRASOUND EXTREMITY, BILATERAL CLINICAL INFORMATION: Bilateral lower extremity swelling and edema. COMPARISON: None. TECHNIQUE: Grayscale, Doppler and spectral analysis of each lower extremity was performed. FINDINGS: On the right, there is partially occlusive thrombus extending from the common femoral vein through to the popliteal vein. On the left, there is partially occlusive thrombus extending from the common femoral vein through to the popliteal vein. There is a left popliteal fossa Alvarez's cyst measuring 2.2 cm. IMPRESSION: Partially occlusive bilateral lower extremity deep venous thrombosis worrisome for an acute process. DICTATED BY: GRETA MONTIEL MD DATE/TIME DICTATED:06/12/16945 MD SENIOR RESEARCH SCIENTIST:JOSUE DATE/TIME TRANSCRIBED:06/12/16945 CONFIDENTIAL, DO NOT COPY WITHOUT APPROPRIATE AUTHORIZATION. <Electronically signed in Other Vendor System> SIGNED BY: GRETA MONTIEL MD 06/12/16 0951 ========= PATIENT: FLORENTINO MARIE PRESENT AGE: 76 PATIENT ACCOUNT NO: [id number] : 41 LOCATION: 1NO ORDERING PHYSICIAN: KENA BERNSTEIN MD SERVICE DATE: 06/12/16- EXAM TYPE: US - US-RENAL/KIDNEY EXAMINATION: US RETROPERITONEAL COMPLETE (RENAL) CLINICAL INFORMATION: Anuria. Evaluate for renal obstruction.. COMPARISON: None TECHNIQUE: Real-time imaging of the kidneys and bladder. FINDINGS: RIGHT KIDNEY: 11.5 x 5 x 5.8 cm (SAG x AP x TRV). The kidney has normal cortical thickness and echotexture. No hydronephrosis or nephrolithiasis. A 1.7 x 2.5 x 2.2 cm simple peripelvic cyst is present within the lower pole. LEFT KIDNEY: The left kidney could not be evaluated. The mechanical technologist reports that the patient was uncooperative and was pushing the mechanical technologist's hand/probe away from the body. BLADDER: Urinary bladder contains a Salazar catheter. The bladder is underdistended and contains approximately 11 mL of fluid. No evidence of bladder calculi or diverticula. IMPRESSION: 1. No evidence of right-sided nephrolithiasis or urinary tract obstruction. 2. Left kidney cannot be evaluated due to lack of patient cooperation. 3. Urinary bladder is decompressed by a Salazar catheter. DICTATED BY: NOEMÍ PEDRAZA MD DATE/TIME DICTATED:06/12/161546 MD SENIOR RESEARCH SCIENTIST:JOSUE DATE/TIME TRANSCRIBED:06/12/161546 CONFIDENTIAL, DO NOT COPY WITHOUT APPROPRIATE AUTHORIZATION. <Electronically signed in Other Vendor System> SIGNED BY: NOEMÍ PEDRAZA MD 06/12/16 1555 PATIENT: FLORENTINO MARIE PRESENT AGE: 76 PATIENT ACCOUNT NO: [id number] : 41 LOCATION: 1NO ORDERING PHYSICIAN: KENA BERNSTEIN MD SERVICE DATE: 06/12/16- EXAM TYPE: CARD - ECHOCARDIOGRAM FLORENTINO MARIE Age: 76 : 1940 Gender: M Exam Date: 06/12/2016 13:14 Exam Location: [address] [place] [address] Ht (in): 68 Wt (lb): 224 BSA: 2.24 BP: 98 / 60 Ordering Physician: KENA BERNSTEIN MD Referring Physician: Dereje Galarza M.D. Technologist: Malia Hurd FRANCISCO Room Number: 171 Indications: ACUTE PULMONARY EMBOLISM Rhythm: Technical Quality: suboptimal FINDINGS Left Ventricle Normal LV chamber size with mild to moderate concentric LVH. The LVEF is 40%. There is mild global hypokinesis. Right Ventricle Borderline dilated right ventricular chamber size with grossly normal function Right Atrium Normal appearing right atrium Left Atrium Normal appearing left atrium Mitral Valve Mildly calcified mitral valvular leaflets and annulus. It is adequate leaflet opening. There is mild to moderate mitral regurgitation Aortic Valve Moderately calcified, trileaflet aortic valve with possible fusion between the left and right coronary leaflets. There is no significant aortic stenosis. There is trace to mild aortic insufficiency Tricuspid Valve Grossly normal appearing tricuspid valvular leaflets with mild tricuspid regurgitation. Estimated RV systolic pressure is 35 mmHg Pulmonic Valve Suboptimally visualized Pericardium Grossly normal Great Vessels Grossly normal CONCLUSIONS Normal LV chamber size with mild to moderate concentric LVH. The LVEF is 40%. There is mild global hypokinesis. Borderline dilated right ventricular chamber size with grossly normal function. Mildly calcified mitral valvular leaflets and annulus. It is adequate leaflet opening. There is mild to moderate mitral regurgitation. Moderately calcified, trileaflet aortic valve with possible fusion between the left and right coronary leaflets. There is no significant aortic stenosis. There is trace to mild aortic insufficiency. Grossly normal appearing tricuspid valvular leaflets with mild tricuspid regurgitation. Estimated RV systolic pressure is 35 mmHg. Dereje Galarza M.D. (Electronically Signed) Final Date: 12 June 2016 15:03 MEASUREMENTS (Male / Female) Normal Values 2D ECHO LV Diastolic Diameter PLAX 5.6 cm 4.2 - 5.9 / 3.9 - 5.3 cm LV Systolic Diameter PLAX 4.1 cm 2.1 - 4.0 cm LV Fractional Shortening PLAX 26.8 % 25 - 46 % LV Ejection Fraction 2D Teich 51.7 % IVS Diastolic Thickness 1.6 cm LVPW Diastolic Thickness 1.6 cm LV Relative Wall Thickness 0.6 RV Internal Dim ED PLAX 3.6 cm 1.9 - 3.8 cm LVOT Diameter 2.0 cm Aortic Root Diameter 2.9 cm LA Systolic Diameter LX 3.8 cm 3.0 - 4.0 / 2.7 - 3.8 cm LA Volume 41.0 cm 18 - 58 / 22 - 52 cm Ascending Aorta Diameter 3.2 cm DOPPLER AV Peak Velocity 129.0 cm/s AV Peak Gradient 6.7 mmHg AV Mean Velocity 96.0 cm/s AV Mean Gradient 4.0 mmHg AV Velocity Time Integral 23.3 cm LVOT Peak Velocity 82.7 cm/s LVOT Peak Gradient 2.7 mmHg LVOT Mean Velocity 56.8 cm/s LVOT Mean Gradient 2.0 mmHg LVOT Velocity Time Integral 13.5 cm LVOT Stroke Volume 42.4 cm AV Area Cont Eq vti 1.8 cm AV Area Cont Eq pk 2.0 cm MV Peak Velocity 150.0 cm/s MV Peak Gradient 9.0 mmHg MV Mean Velocity 81.5 cm/s MV Mean Gradient 4.0 mmHg Mitral E Point Velocity 116.0 cm/s MV PHT Velocity 156.0 cm/s MV Deceleration Lawrence 1019.0 cm/s MV Pressure Half Time 45.9 ms MV Area PHT 4.8 cm MV Deceleration Time 106.0 ms TR Peak Velocity 250.0 cm/s TR Peak Gradient 25.0 mmHg Right Atrial Pressure 10.0 mmHg Pulmonary Artery Systolic Pressu 35.0 mmHg Right Ventricular Systolic Press 35.0 mmHg PV Peak Velocity 103.0 cm/s PV Peak Gradient 4.2 mmHg PV Mean Velocity 65.0 cm/s PV Mean Gradient 2.0 mmHg PV Velocity Time Integral 15.4 cm LV E' Lateral Velocity 2.9 cm/s Mitral E to LV E' Lateral Ratio 39.7 LV E' Septal Velocity 4.4 cm/s Mitral E to LV E' Septal Ratio 26.4 DICTATED BY: DEREJE GALARZA MD DATE/TIME DICTATED:06/12/161502 MD SENIOR RESEARCH SCIENTIST:JOSUE DATE/TIME TRANSCRIBED:06/12/161502 CONFIDENTIAL, DO NOT COPY WITHOUT APPROPRIATE AUTHORIZATION. <Electronically signed in Other Vendor System> SIGNED BY: DEREJE GALARZA MD 06/12/161503 PATIENT: FLORENTINO MARIE PRESENT AGE: 76 PATIENT ACCOUNT NO: [id number] : 41 LOCATION: [facility] ORDERING PHYSICIAN: DAVID TONEY PA-C SERVICE DATE: 06/10/16 EXAM TYPE: RAD - XRY-PORTABLE CHEST XRAY EXAMINATION: XR PORTABLE CHEST CLINICAL INFORMATION: Altered mental status Rule out pneumonia. COMPARISON: 05/19/2016 TECHNIQUE: Portable AP view of the chest was obtained. FINDINGS: Sternal wires are present anteriorly. Patient is rotated to the left. Cardiomegaly is unchanged. Mitral annular calcifications are again noted. There is persistent opacification of the left lung base which is unchanged from prior. There is mild atelectasis at the right lung base. Pulmonary vasculature appears normal. Degenerative disc disease is present in the thoracic spine. Bones are osteopenic. IMPRESSION: 1. Unchanged predominantly. No pulmonary edema. 2. Persistent opacification of the left lung base which is unchanged from prior and could be due to effusion, pneumonia, and/or atelectasis. 3. Right lower lobe atelectasis. DICTATED BY: AROLDO AZAR MD DATE/TIME DICTATED:06/10/162021 MD SENIOR RESEARCH SCIENTIST:JOSUE DATE/TIME TRANSCRIBED:06/10/162021 CONFIDENTIAL, DO NOT COPY WITHOUT APPROPRIATE AUTHORIZATION. <Electronically signed in Other Vendor System> SIGNED BY: AROLDO AZAR MD 06/10/162027 Disposition Summary Disposition Principal Diagnosis: Atrial flutter Multiple DVTs Additional Diagnosis: Dementia Diabetes Discharge Disposition: SNF Discharge Instructions General Discharge Information Code Status: Do Not Resucitate/Intubat Patient's Diet: Diabetic diet Patient's Activity: As tolerated Follow-Up Instructions/Appts: -Please follow-up with your primary care provider within 7 days after discharge. -please follow-up with your fiber design engineer 7 days after discharge -please follow-up with your manager photo 7 days after discharge -We have made changes to your home medications, please read the instructions carefully. -Please come back to the hospital if your symptoms got worse. Medications at Discharge Discharge Medications: Stop taking the following medications: Furosemide (Furosemide) 20 MG TABLET ORAL EVERY 48 HOURS (Every 2 days) Carvedilol (Coreg) 3.125 MG TABLET ORAL TWICE DAILY Continue taking these medications: Rosuvastatin Calcium (Crestor) 10 MG TABLET 1 Tablet ORAL Every night Comments: Last Taken:06/21/16 LIPITOR Time:1700 Tiotropium [place] (Spiriva) 18 MCG CAP.W.DEV 1 Capsule Inhale through mouth DAILY Comments: Last Taken:06/22/16 Time:1000 Escitalopram Oxalate (Escitalopram Oxalate) 10 MG TABLET 1 Tablet ORAL DAILY Qty = 30 Comments: Last Taken: 06/22/16 Time: 1000 AM Ipratropium/Albuterol Sulfate (Iprat-Albut 0.5-3(2.5) MG/3 Ml) 3 ML AMPUL.NEB 1 Amp Inhale through mouth 4 TIMES A DAY Comments: Last Taken: 05/20/16 Time: 0940AM Polyethylene Glycol 3350 (Miralax) 17 GRAM POWD.PACK 1 Packet ORAL DAILY Qty = 2 Instructions: dissolve in water Comments: Last Taken: 05/21/16 Time: 1000 AM Pantoprazole Sodium (Protonix) 40 MG TABLET.DR 1 Tablet ORAL DAILY Qty = 30 Comments: Last Taken:06/22/16 Time:0700 Fluticasone/Salmeterol (Advair 250-50 Diskus) 250 MCG-50 MCG/DOSE BLST.W.DEV 1 Puff Inhale through mouth TWICE DAILY Qty = 60 Comments: NOT TAKEN IN HOSPITAL Glipizide (Glipizide) 5 MG TABLET 1 Tablet ORAL DAILY Comments: NOT GIVEN IN HOSPITAL Insulin Lispro (Humalog) 100 UNIT/ML VIAL Inject into fatty tissue SEE INSTRUCTIONS Instructions: 151-200 2 U 201-250 4 U 251-300 6 U 301-350 8 U 351-400 10 U >400 or < 60 call MD Comments: NOVALOG GIVEN IN HOSPITAL Magnesium Oxide (Magnesium) 400 MG CAPSULE 1 Capsule ORAL DAILY Qty = 30 Comments: NOT GIVEN IN HOSPITAL Insulin Detemir (Levemir) 100 UNIT/ML VIAL 10 Units Inject into fatty tissue TWICE DAILY Qty = 30 Instructions: please continue levemir for the next 6 days and stop on april 22, 2016 Comments: Last Taken: 06/22/16 Time: 1000AM Budesonide (Budesonide) 0.5 MG/2 ML AMPUL.NEB 1 Vial Inhale Solution TWICE DAILY Comments: NOT GIVEN IN HOSPITAL Sennosides (Senna) 8.6 MG TABLET 1 Tablet ORAL 1600 Comments: Last Taken: 05/20/16 Time: 9:00 PM Cholecalciferol (Vitamin D3) 1,000 UNIT TABLET 1,000 International Unit ORAL DAILY Qty = 30 Comments: Last Taken: 05/20/16 Time: 0900AM Acetaminophen (Acephen) 650 MG SUPP.RECT 1 Suppository RECTALLY Q4H as needed for PAIN/TEMP>100 Bisacodyl (Bisacodyl) 10 MG SUPP.RECT 1 Suppository RECTAL as needed for CONSTIPATION Na Phos,M-B/Na Phos,Di-Ba (Fleet Enema) 19 GRAM-7 GRAM/118 ML ENEMA 1 Enema RECTAL DAILY as needed for CONSTIPATION Acetaminophen (Pain & Fever) 325 MG TABLET 2 Tablet ORAL Q4H as needed for PAIN/TEMP>/100 Albuterol Sulfate (Albuterol Sulfate) 2.5 MG/3 ML (0.083 %) VIAL.NEB 1 Vial Inhale Solution EVERY 4 HOURS NEEDED as needed for SOB Amino Acids/Protein Hydrolys (Pro-Stat Sugar Free Liquid) 15 GRAM-100 KCAL/30 ML LIQUID 1 Tablet ORAL DAILY Start taking the following new medications: Digoxin (Lanoxin) 125 MCG TABLET 0.125 Milligram ORAL 7:30AM Days = 28 No Refills Comments: Last Taken:06/22/16 Time:1000 Furosemide (Furosemide) 20 MG TABLET 20 Milligram ORAL DAILY Days = 28 No Refills Comments: Last Taken:06/22/16 Time:1000 Metoprolol Tartrate (Metoprolol Tartrate) 50 MG TABLET 50 Milligram ORAL TWICE DAILY Days = 28 No Refills Comments: Last Taken:06/22/16 Time:1000 Aspirin (Ecotrin*) 81 MG TABLET. 81 Milligram ORAL DAILY Days = 28 No Refills Comments: Last Taken:06/22/16 Time:1000 Warfarin Sodium (Coumadin) 2.5 MG TABLET 1 Tablet ORAL DAILY Qty = 30 No Refills Instructions: DOSE PER INR Comments: Last Taken:06/22/16 Time:1600 Copies To: FELIZ BARRETT,KAUSHIK Barrios; ELLA GARCIA MD; JOSE BARRETT,WADE Attending MD Review Statement Documenting Attending: GRETA VERGARA MD Other Findings: The patient was seen and discussed with house staff. OK to discharge to SNF today.
--- NOTE | 2016-06-17 17:26 | Patient Discharge Instructions ---
Discharge Instructions General Discharge Information You were seen/treated for: Atrial flutter Multiple DVTs Special Instructions: -Please follow-up with your primary care provider within 7 days after discharge. -please follow-up with your director of hotel operations 7 days after discharge -please follow-up with your technical intern 7 days after discharge -We have made changes to your home medications, please read the instructions carefully. -Please come back to the hospital if your symptoms got worse Diet Recommended Diet: Diabetic Acute Coronary Syndrome Inclusion Criteria At DC or during hospital stay patient has or had the following: ACS DIAGNOSIS No Discharge Core Measures Meds if any: Prescribed or Continued at Discharge Meds if any: NOT Prescribed or Continued at Discharge Congestive Heart Failure Inclusion Criteria At DC or during hospital stay patient has or had the following: CHF DIAGNOSIS No Discharge Core Measures Meds if any: Prescribed or Continued at Discharge Meds if any: NOT Prescribed or Continued at Discharge Cerebrovascular accident Inclusion Criteria At DC or during hospital stay patient has or had the following: CVA/TIA Diagnosis No Discharge Core Measures Meds if any: Prescribed or Continued at Discharge Meds if any: NOT Prescribed or Continued at Discharge Venous thromboembolism Inclusion Criteria VTE Diagnosis Yes VTE Type Deep Venous Thrombosis VTE Confirmed by (Test) EXT BILATERAL VENOUS DOPP Discharge Core Measures - Per Current guidelines, there needs to be overlap - treatment for the first 5 days of Warfarin therapy. - If discharged on Warfarin prior to 5 days of - overlap therapy, the patient will need to be - assessed for post discharge needs including - *Post discharge parental anticoagulation - *Warfarin and/or parental anticoagulation education - *Follow up date to check INR post discharge At least 5 days overlap therapy as Inpatient Yes Meds if any: Prescribed or Continued at Discharge Warfarin Yes Note: Overlap Therapy is Warfarin and Anticoagulant Meds if any: NOT Prescribed or Continued at Discharge
[2016-06-17 19:37] VITALS: BP 102/50
[2016-06-17 23:16] LABS: PTT 77 SEC (25-37)
[2016-06-18 00:48] VITALS: BP 102/72
[2016-06-18 08:00] VITALS: BP 114/68
[2016-06-18 08:06] LABS: ABSOLUTE BASOPHIL COUNT 0 /CUMM (0.0-0.2); ABSOLUTE EOSINOPHIL COUNT 0 /CUMM (0.0-0.7); ABSOLUTE GRANULOCYTE CT 20.4 /CUMM (1.4-6.5); ABSOLUTE MONOCYTE COUNT 0.4 /CUMM (0.10-0.60); BASOPHIL % 0 % (0.0-2.0); EOSINOPHIL % 0.1 % (0-5); GRANULOCYTE % 93.5 % (42.2-75.2); HEMATOCRIT 28.4 % (42-52); MEAN CORPUSCULAR VOLUME 87.7 FL (80.0-94.0); MEAN PLATELET VOLUME 8.9 FL (7.4-10.4); PLATELET COUNT 336 /CUMM (130-400); RBC DISTRIBUTION WIDTH 18.7 % (11.5-14.5); RED BLOOD CELL CT 3.24 /CUMM (4.70-6.10); WHITE BLOOD CELL COUNT 21.8 /CUMM (4.8-10.8)
[2016-06-18 08:57] LABS: PT 49.6 SEC (9.4-12.5)
--- NOTE | 2016-06-18 09:12 | PN- Housestaff ---
LINDSEY GUERRERO 06/18/16 0912: Subjective Follow-up For: - Hypercarbic respiratory failure. - Atrial flutter - DVT - RICHARD Complaints: no complaints Tele-Events Since Last Visit: A flutter, HR 106-108, No overnight events. Subjective: Pt was comfortable this am. Currently on BiPAP. He did not have any shortness of breath, chest pain or palpitatoins. Vitals stable overnight. ABG was done this am. Digoxin dose was converted from po to iv, after speaning to the pharmacy. To check digoxin levels in the pm. Review of Systems Constitutional: Reports: see HPI. Objective Last 24 Hrs of Vital Signs/I&O Vital Signs Date Time Temp Pulse Resp B/P B/P Pulse O2 O2 Flow FiO2 Mean Ox Delivery Rate 06/18 0811 95 BIPAP 30% 06/18 0809 109 95 06/18 0555 114 96 06/18 0048 97.9 70 26 102/72 97 Nasal Cannula 06/18 0014 115 98 06/17 2245 83 95 06/17 2105 85 95 06/17 2100 128 100/50 06/17 1937 120 34 102/50 Nasal 2.0L Cannula 06/17 1646 97.8 86 30 120/76 97 Nasal Cannula 06/17 1600 94 Nasal 2.0L Cannula 06/17 1559 97 Nasal 2.0L Cannula Intake & Output 06/18 1600 06/18 0800 06/18 0000 Intake Total 246 180 Output Total 250 850 Balance -4 -670 Intake, IV 146 150 Intake, Oral 100 30 Number 0 Bowel Movements Output, Urine 250 850 Patient 246 lb Weight Weight Carolina Lift Measurement Method Physical Exam General Appearance: No Acute Distress Other Physical Findings: General Appearance: lethargic, No Acute Distress Other Physical Findings: Skin: No Rashes, No Breakdown HEENT: Atraumatic, PERRLA, EOMI, Mucous Membr. moist/pink Neck: Supple, No JVD Cardiovascular: Regular Rate, Normal S1, Normal S2 Lungs: b/l decreased breath sound on Auscultation Abdomen: Normal Bowel Sounds, Soft Neurological: no change than yesterday, grossly intact Extremities: No Clubbing, No Cyanosis, Edema present b/l, Normal Pulses Vascular: Pulses Symmetrical Current Medications: Current Medications Sig/Amadeo Start time Last Medication Dose Route Stop Time Status Admin Albuterol Sulfate 3 ML EVERY 4 HRS/AWAKE 06/11 2000 AC 06/18 INH 0755 Aspirin Buffered 81 MG DAILY 06/15 1000 AC 06/17 PO 1329 Atorvastatin Calcium 40 MG 1700 06/11 1700 AC 06/17 PO 1859 Carvedilol 12.5 MG BID 06/15 1000 AC 06/17 PO 2100 Digoxin 0.125 MG 7:30AM 06/18 0730 AC PO Digoxin 0.125 MG 1700 06/17 1700 DC PO Furosemide 20 MG Q48 06/18 1000 AC PO Heparin Sodium 25,000 UNIT Q24H 06/15 0930 AC 06/17 (Porcine) IV 1901 Sodium Chloride 500 ML Insulin Aspart 0 TIDAC/HS 06/15 1700 AC 06/17 SC 1328 Insulin Detemir 17 UNITS BID 06/17 2200 DC 06/17 SC 2110 Insulin Detemir 10 UNITS BID 06/17 2200 AC SC Insulin Detemir 15 UNITS BID 06/16 1000 DC 06/16 SC 2107 Ipratropium [place] 2.5 ML Q4 HRS NEEDED PRN 06/12 1130 AC 06/16 INH 1135 Lactobacillus 1 CAP DAILY 06/13 1129 AC 06/17 Acidophilus PO 1329 Omeprazole 40 MG BID 06/14 1000 AC 06/17 PO 1329 Patient Medication 1 UNIT ONE NR 06/17 1745 [place] Teaching ED 06/17 1800 Prednisone 10 MG DAILY 06/20 1000 AC PO 06/22 0959 Prednisone 20 MG DAILY 06/18 1000 AC PO 06/20 0959 Prednisone 30 MG DAILY 06/16 1000 AC 06/17 PO 06/18 0959 1329 Tiotropium [place] 1 PUF DAILY 06/11 1000 AC 06/17 INH 1328 Warfarin Sodium 5 MG COUMADIN 1700 ONE 06/17 1700 DC 06/17 PO 06/17 1701 1859 Last 24 Hrs of Lab/Sumanth Results Last 24 Hrs of Labs/Mics: Laboratory Tests 06/18/16 0640: Anion Gap 7, Estimated GFR 54 L, BUN/Creatinine Ratio 25.4 H, PT 49.6 *H, INR 4.80 *H, CBC w Diff Pending, WBC Pending, RBC Pending, Hgb Pending, Hct Pending, MCV Pending, MCH Pending, RDW Pending, Plt Count Pending, MPV Pending, Gran % Pending, Lymphocytes % Pending, Monocytes % Pending, Eosinophils % Pending, Basophils % Pending, Absolute Granulocytes Pending, Absolute Lymphocytes Pending , Absolute Monocytes Pending, Absolute Eosinophils Pending, Absolute Basophils Pending, PUBS MCHC Pending 06/17/16 2245: pH 7.33 L, pCO2 53 H, pO2 78 L, HCO3 28, ABG O2 Sat (Measured) 94.0 L, P-50 (Temp Corrected) Y, Carboxyhemoglobin 0.3 L, O2 Concentration % 30, Temperature 98.0, Respiration Rate 24, O2 Delivery Method BIPAP, Vent Mode ST, Expiratory Pressure 6, Inspiratory Pressure 20, Phlebotomy Draw Site RIGHT RADIAL 06/17/16 2230: APTT 77 H 06/17/16 1955: pH 7.32 L, pCO2 55 H, pO2 94, HCO3 28, ABG O2 Sat (Measured) 96.0, P-50 (Temp Corrected) Y, Carboxyhemoglobin 0.3 L, O2 Concentration % 2L, Temperature 98.0, O2 Delivery Method NC, Phlebotomy Draw Site RIGHT RADIAL 06/17/16 1316: APTT 56 H Assessment/Plan Assessment: 76-year-old gentleman who resides at [place] brought in for lethargy and confusion. PMH type 2 diabetes, CAD S/P CABG, COPD on 2 LNC, HFrEF of 50% on , stage I diastolic dysfunction, RVSP 42mmHg, CVA, cpap on nocturnal bipaP, stage III cKD, HTN, recent admissions for CHF/COPD exacerbation in June 2015, March 2016. Problem list: 1. Elevated troponins: Likely type II 2. SIRS 3. Persistent tachycardia 4. Hypokalemia, resolved 5. DVT of RUE, and B/L lower ext 6. Lethargy/AMS, better 7. Diabetes 8. JUANITO on CPAP Of note, patient's son Mr. Alejo David, has pain constantly in touch and is being updated about the patient's status. He has been asked to discuss the plan of care for the patient multiple times. #Persistent tachycardia Patient remained in persistent tachycardia throughout the night. He was in tachycardia with rate between 130-140. Venous Doppler bilateral lower extremities and right upper ext shows DVT. * A trial of Carotid sinus massage was done on 06/16/16 and loading dose of Digoxin was given yesterday evening which changed/slowed the rhythm to 90s overnight and the rhythm could be analyzed to be atrial flutter. Cardizem was stopped prior to Digoxin yesterday. Will continue Digoxin (next dose tomorrow) for now and watch digoxin level tomorrow evening, and watch BEP renee potassium, per cardiology consult. * On IV heparin with Coumadin for anticoagulation, given the hx of GI bleeding warfarin (coumadin) is reversible.Pt to be continued on iv heparin for atleast 24hrs of overlap. No coumadin to be given today. #Systolic congestive heart failure with tachycarida Patient has history of congestive heart failure with ejection fraction 40%. Following Laminating Machine Tender recommendations; tried betablocker, 10 mg of IV Cardizem, IV Cardizem drip and finally Digoxin now. No more Cardizem running. #Possible gram-negative pneumonia, treated Patient received a course of ceftazidime and vancomycin for possible Gram- negative pneumonia, and is currently being monitored off antibiotics. #Elevated troponins * likely demand ischemia * continue ASA 81mg # Diabetes mellitus * Accu-Cheks * Insulin sliding scale * Levemir #JUANITO on CPAP * We'll continue BiPAP and assess for respiratory improvement. * Pulmonology recommendations followed #persistant leucocytosis, ?due to steroid use #chronic renal insufficency: creatinine today is 1.4, will monitor DNR/DNI, diabetic diet, eliqus for DVT prophylaxis. Problem List: 1. DVT (deep venous thrombosis) 2. Atrial flutter Pain Ratin Pain Location: tylenol prn Pain Goal: Pain 4 or less Pain Plan: tylenol prn Tomorrow's Labs & Rationales: cbc bep inr Consulting Request: Consulting Specialty: Cardiology JUAN BARRETT,[facility] 06/18/16 1543: Attending MD Review Statement Attending Statement Attending MD Statement: examined this patient, discuss w/resident/PA/COMMUNITY MARKETING COORDINATOR, agreed w/resident/PA/COMMUNITY MARKETING COORDINATOR, reviewed EMR data (avail), discussed with nursing, discussed with case mgmt, reviewed images, amended to note Attending Assessment/Plan: 76-year-old male who has been admitted with bilateral lower extremity DVT and right upper extremity DVT with tachycardia and shortness of breath. Patient was seen and examined on the bedside and does not complain of any shortness of breath, palpitations or chest pain. His labs were reviewed which showed an elevated INR of 4.8 and a ditch level of 1.8. Cardiology on board recommended to continue with digoxin of 0.125 mg and stop Coreg and begin metoprolol 50 mg twice a day. Will continue on Lasix 20 mg per oral daily with follow-up on electrolytes. We'll hold on Coumadin as it is supratherapeutic today with an INR of 4.8. We'll closely monitor the patient.
--- NOTE | 2016-06-18 11:52 | PN- Pulmonary ---
Subjective HPI/Critical Care Issues: pt seen and examined Still on bipap and sleepy hemodynamically stable on bipap overnight aswell ROS other angel neg Objective Current Medications: Current Medications Sig/Amadeo Start time Last Medication Dose Route Stop Time Status Admin Albuterol Sulfate 3 ML EVERY 4 HRS/AWAKE 06/11 2000 AC 06/18 INH 1101 Aspirin Buffered 81 MG DAILY 06/15 1000 AC 06/17 PO 1329 Atorvastatin Calcium 40 MG 1700 06/11 1700 AC 06/17 PO 1859 Carvedilol 12.5 MG BID 06/15 1000 AC 06/17 PO 2100 Digoxin 0.1 MG ONCE ONE 06/18 1030 DC IV 06/18 1031 Digoxin 0.125 MG 7:30AM 06/18 0730 DC PO Digoxin 0.125 MG 1700 06/17 1700 DC PO Furosemide 20 MG Q48 06/18 1000 AC PO Heparin Sodium 25,000 UNIT Q24H 06/15 0930 AC 06/17 (Porcine) IV 1901 Sodium Chloride 500 ML Insulin Aspart 0 TIDAC/HS 06/15 1700 AC 06/17 SC 1328 Insulin Detemir 17 UNITS BID 06/17 2200 DC 06/17 SC 2110 Insulin Detemir 10 UNITS BID 06/17 2200 AC SC Insulin Detemir 15 UNITS BID 06/16 1000 DC 06/16 SC 2107 Ipratropium [place] 2.5 ML Q4 HRS NEEDED PRN 06/12 1130 AC 06/16 INH 1135 Lactobacillus 1 CAP DAILY 06/13 1129 AC 06/17 Acidophilus PO 1329 Omeprazole 40 MG BID 06/14 1000 AC 06/17 PO 1329 Patient Medication 1 UNIT ONE NR 06/17 1745 DC Teaching ED 06/17 1800 Prednisone 10 MG DAILY 06/20 1000 AC PO 06/22 0959 Prednisone 20 MG DAILY 06/18 1000 AC PO 06/20 0959 Prednisone 30 MG DAILY 06/16 1000 DC 06/17 PO 06/18 0959 1329 Tiotropium [place] 1 PUF DAILY 06/11 1000 AC 06/17 INH 1328 Warfarin Sodium 5 MG COUMADIN 1700 ONE 06/17 1700 DC 06/17 PO 06/17 1701 1859 Vital Signs & I&O Last 24 Hrs of Vitals and I&O: Vital Signs Date Time Temp Pulse Resp B/P B/P Pulse O2 O2 Flow FiO2 Mean Ox Delivery Rate 06/18 1130 93 06/18 0811 95 BIPAP 30% 06/18 0809 109 95 06/18 0800 97.8 118 24 114/68 95 BIPAP 30% 06/18 0555 114 96 06/18 0048 97.9 70 26 102/72 97 Nasal Cannula 06/18 0014 115 98 06/17 2245 83 95 06/17 2105 85 95 06/17 2100 128 100/50 06/17 1937 120 34 102/50 Nasal 2.0L Cannula 06/17 1646 97.8 86 30 120/76 97 Nasal Cannula 06/17 1600 94 Nasal 2.0L Cannula 06/17 1559 97 Nasal 2.0L Cannula Intake & Output 06/18 1600 06/18 0800 06/18 0000 Intake Total 246 180 Output Total 250 850 Balance -4 -670 Intake, IV 146 150 Intake, Oral 100 30 Number 0 Bowel Movements Output, Urine 250 850 Patient 246 lb Weight Weight Carolina Lift Measurement Method Laboratory Tests 06/18 06/18 1105 0640 Blood Gas pH (7.35 - 7.45 PH) 7.39 pCO2 (35 - 45 TORR) 47 H pO2 (80 - 100 TORR) 112 H HCO3 (21 - 28 MEQ/L) 27 ABG O2 Sat (Measured) (>96.0 %) 97.0 P-50 (Temp Corrected) N Carboxyhemoglobin (1.5 - 5.0 %) 1.1 L O2 Concentration % 30 Temperature (97.0 - 100.0 FARH) 97.8 Respiration Rate (BPM) 26 O2 Delivery Method BIPAP Vent Mode ST Expiratory Pressure (CM H2O P) 6 Inspiratory Pressure (CM H2O P) 20 Chemistry Sodium (137 - 145 mmol/L) 137 Potassium (3.5 - 5.1 mmol/L) 5.0 Chloride (98 - 107 mmol/L) 99 Carbon Dioxide (22 - 30 mmol/L) 30 Anion Gap (5 - 16) 7 BUN (9 - 20 mg/dL) 33 H Creatinine (0.7 - 1.2 mg/dL) 1.3 H Estimated GFR (>60 ml/min) 54 L BUN/Creatinine Ratio (7 - 25 %) 25.4 H Coagulation PT (9.4 - 12.5 SEC) 49.6 *H INR (0.90 - 1.17) 4.80 *H Hematology CBC w Diff MAN DIFF ORDERED WBC (4.8 - 10.8 /CUMM) 21.8 H RBC (4.70 - 6.10 /CUMM) 3.24 L Hgb (14.0 - 18.0 G/DL) 9.1 L Hct (42 - 52 %) 28.4 L MCV (80.0 - 94.0 FL) 87.7 MCH (27.0 - 31.0 PG) 28.0 RDW (11.5 - 14.5 %) 18.7 H Plt Count (130 - 400 /CUMM) 336 MPV (7.4 - 10.4 FL) 8.9 Gran % (42.2 - 75.2 %) 93.5 H Lymphocytes % (20.5 - 51.1 %) 4.6 L Monocytes % (1.7 - 9.3 %) 1.8 Eosinophils % (0 - 5 %) 0.1 Basophils % (0.0 - 2.0 %) 0 L Absolute Granulocytes (1.4 - 6.5 /CUMM) 20.4 H Segmented Neutrophils (42.2 - 75.2 %) 90 H Band Neutrophils (0.0 - 5.0 %) 1 Absolute Lymphocytes (1.2 - 3.4 /CUMM) 1.0 L Lymphocytes (20.5 - 51.1 %) 5 L Monocytes (1.7 - 9.3 %) 2 Absolute Monocytes (0.10 - 0.60 /CUMM) 0.4 Absolute Eosinophils (0.0 - 0.7 /CUMM) 0 Absolute Basophils (0.0 - 0.2 /CUMM) 0 Metamyelocytes (0.0 - 1.0 %) 2 H Platelet Estimate (ADEQUATE) VERIFIED BY SMEAR Polychromasia 1+ Poikilocytosis 1+ Basophilic Stippling 1+ Anisocytosis 1+ Ovalocytes 1+ Brock Cells 1+ PUBS MCHC (33.0 - 37.0 G/DL) 32.0 L Miscellaneous Phlebotomy Draw Site RIGHT RADIAL 06/17 06/17 06/17 06/17 06/17 2245 2230 1955 1316 0315 Blood Gas pH (7.35 - 7.45 PH) 7.33 L 7.32 L pCO2 (35 - 45 TORR) 53 H 55 H pO2 (80 - 100 TORR) 78 L 94 HCO3 (21 - 28 MEQ/L) 28 28 ABG O2 Sat (Measured) (>96.0 %) 94.0 L 96.0 P-50 (Temp Corrected) Y Y Carboxyhemoglobin (1.5 - 5.0 %) 0.3 L 0.3 L O2 Concentration % 30 2L Temperature (97.0 - 100.0 FARH) 98.0 98.0 Respiration Rate (BPM) 24 O2 Delivery Method BIPAP NC Vent Mode ST Expiratory Pressure (CM H2O P) 6 Inspiratory Pressure (CM H2O P) 20 Coagulation PT (9.4 - 12.5 SEC) 22.4 H INR (0.90 - 1.17) 2.15 H APTT (25 - 37 SEC) 77 H 56 H Miscellaneous Phlebotomy Draw Site RIGHT RADIAL RIGHT RADIAL 06/17 06/16 0315 1829 Chemistry Sodium (137 - 145 mmol/L) 136 L Potassium (3.5 - 5.1 mmol/L) 5.0 Chloride (98 - 107 mmol/L) 99 Carbon Dioxide (22 - 30 mmol/L) 28 Anion Gap (5 - 16) 9 BUN (9 - 20 mg/dL) 32 H Creatinine (0.7 - 1.2 mg/dL) 1.4 H Estimated GFR (>60 ml/min) 49 L BUN/Creatinine Ratio (7 - 25 %) 22.9 Magnesium (1.6 - 2.3 mg/dL) 2.0 Coagulation APTT (25 - 37 SEC) 92 H 91 H Hematology CBC w Diff MAN DIFF ORDERED WBC (4.8 - 10.8 /CUMM) 23.3 H RBC (4.70 - 6.10 /CUMM) 3.09 L Hgb (14.0 - 18.0 G/DL) 8.5 L Hct (42 - 52 %) 26.9 L MCV (80.0 - 94.0 FL) 87.3 MCH (27.0 - 31.0 PG) 27.4 RDW (11.5 - 14.5 %) 18.0 H Plt Count (130 - 400 /CUMM) 339 MPV (7.4 - 10.4 FL) 8.5 Gran % (42.2 - 75.2 %) 90.1 H Lymphocytes % (20.5 - 51.1 %) 5.6 L Monocytes % (1.7 - 9.3 %) 4.2 Eosinophils % (0 - 5 %) 0 Basophils % (0.0 - 2.0 %) 0.1 Absolute Granulocytes (1.4 - 6.5 /CUMM) 21.0 H Segmented Neutrophils (42.2 - 75.2 %) 88 H Absolute Lymphocytes (1.2 - 3.4 /CUMM) 1.3 Lymphocytes (20.5 - 51.1 %) 6 L Monocytes (1.7 - 9.3 %) 4 Absolute Monocytes (0.10 - 0.60 /CUMM) 1.0 H Absolute Eosinophils (0.0 - 0.7 /CUMM) 0 Absolute Basophils (0.0 - 0.2 /CUMM) 0 Metamyelocytes (0.0 - 1.0 %) 1 Myelocytes (0 - 0 %) 1 H Nucleated RBCs (0.0 - 0.0 /100WBC) 1 H Platelet Estimate (ADEQUATE) ADEQUATE Polychromasia 1+ Poikilocytosis 1+ Basophilic Stippling 1+ Anisocytosis 2+ Ovalocytes FEW PUBS MCHC (33.0 - 37.0 G/DL) 31.4 L Toxicology Digoxin (0.8 - 2.0 ng/mL) 1.8 Impression/Plan Impression/Plan Impression/Plan: Physical Exam General Appearance: Alert, Oriented X3, Cooperative, No Acute Distress on bipap Other Physical Findings: Skin: No Rashes, No Breakdown HEENT: Atraumatic, PERRLA, EOMI, Mucous Membr. moist/pink Neck: Supple, No JVD Cardiovascular: Regular Rate, Normal S1, Normal S2 Lungs: b/l decreased breath sound on Auscultation Abdomen: Normal Bowel Sounds, Soft Neurological: no change than yesterday, grossly intact Extremities: No Clubbing, No Cyanosis, Edema present b/l, Normal Pulses Vascular: Pulses Symmetrical IMPRESSION 76-year-old gentleman with * Acute on chronic hypercarbic and hypoxemic respiratory failure slowly improving related to multiple factors including underlying heart failure and COPD with obesity hypoventilation syndrome * Atelectasis * Lower extremity partially occlusive DVT * Chronic hypercarbia * Atrial fib flutter on anticoagulation * Leukocytosis * Diabetes * Elevated troponin with cardiomyopathy with low ejection fraction RECOMMENDATION Continue BiPAP Genital diuresis Cardiology following Continue heparin and warfarin Continue Spiriva Steroid taper Watch off antibiotics Cardiology following Patient wishes to be DNR/DNI
[2016-06-18 13:32] LABS: PTT 110 SEC (25-37)
--- NOTE | 2016-06-18 14:17 | PN- Cardiology ---
Subjective Subjective: * No complaints of chest discomfort, shortness of breath, lightheadedness or palpitations. * atrial flutter with increased heart rate. * INR is 4.8 * creatinine is 1.3 * digoxin level 1.8 Objective Vital Signs and I&Os Vital Signs Date Time Temp Pulse Resp B/P B/P Pulse O2 O2 Flow FiO2 Mean Ox Delivery Rate 06/18 1203 120/70 06/18 1201 130 120/70 06/18 1130 93 06/18 0811 95 BIPAP 30% 06/18 0809 109 95 06/18 0800 97.8 118 24 114/68 95 BIPAP 30% 06/18 0555 114 96 06/18 0048 97.9 70 26 102/72 97 Nasal Cannula 06/18 0014 115 98 06/17 2245 83 95 06/17 2105 85 95 06/17 2100 128 100/50 06/17 1937 120 34 102/50 Nasal 2.0L Cannula 06/17 1646 97.8 86 30 120/76 97 Nasal Cannula 06/17 1600 94 Nasal 2.0L Cannula 06/17 1559 97 Nasal 2.0L Cannula Intake & Output 06/18 1600 06/18 0800 06/18 0000 06/17 1600 06/17 0800 06/17 0000 Intake Total 246 180 580 252 332.4 Output Total 250 850 850 300 250 Balance -4 -670 -270 -48 82.4 Intake, IV 146 150 100 152 182.4 Intake, Oral 100 30 480 100 150 Number 0 0 0 Bowel Movements Output, Urine 250 850 850 300 250 Patient 246 lb 246 lb Weight Weight Carolina Lift Carolina Lift Measurement Method Physical Exam: General: WD/morbidly obese male in NAD; alert and oriented x 3 Heart: irregularly irregular Lungs: clear anteriorly Extremities: 2+ bilateral leg edema Assessment/Plan Assessment/Plan * This patient continues to be tachycardic on digoxin and Coreg. His BP will likely not allow any more increases in Coreg and his Dig level is trending toward being supratherapeutic expecially in the setting of his renal insufficiency. Continue digoxin at 0.125mg daily. Stop Coreg in favor of a beta benigno without alpha blocking effect. Metoprolol may affect heart rate more without lowering blood pressure quite as much. Begin at 50mg BID. * Continue Lasix at 20mg daily due to some persistent edema. Follow his BUN, creatinine and potassium. * Keep INR 2-2.5 Continue telemetry? Yes
[2016-06-18 17:48] VITALS: BP 118/64
[2016-06-18 22:28] LABS: PTT 75 SEC (25-37)
[2016-06-19 00:08] VITALS: BP 120/60
--- NOTE | 2016-06-19 06:49 | PN- Pulmonary ---
Subjective HPI/Critical Care Issues: Sleeping well on BiPAP Edema seems to be improving Continues to be congested No chest pain Easily arousable Objective Current Medications: Current Medications Sig/Amadeo Start time Last Medication Dose Route Stop Time Status Admin Albuterol Sulfate 3 ML EVERY 4 HRS/AWAKE 06/11 2000 AC 06/18 INH 2042 Aspirin Buffered 81 MG DAILY 06/15 1000 AC 06/18 PO 1203 Atorvastatin Calcium 40 MG 1700 06/11 1700 AC 06/18 PO 1731 Carvedilol 12.5 MG BID 06/15 1000 DC 06/18 PO 1203 Digoxin 0.125 MG 7:30AM 06/19 0730 AC PO Digoxin 0.1 MG ONCE ONE 06/18 1030 DC 06/18 IV 06/18 1031 1201 Digoxin 0.125 MG 7:30AM 06/18 0730 DC PO Furosemide 20 MG DAILY 06/19 1000 AC PO Furosemide 20 MG Q48 06/18 1000 DC 06/18 PO 1203 Heparin Sodium 25,000 UNIT Q24H 06/15 0930 AC 06/19 (Porcine) IV 0107 Sodium Chloride 500 ML Insulin Aspart 0 TIDAC/HS 06/15 1700 AC 06/18 SC 1750 Insulin Detemir 10 UNITS BID 06/17 2200 AC 06/18 SC 2132 Ipratropium [place] 2.5 ML Q4 HRS NEEDED PRN 06/12 1130 AC 06/16 INH 1135 Lactobacillus 1 CAP DAILY 06/13 1129 AC 06/18 Acidophilus PO 1203 Metoprolol Tartrate 50 MG BID 06/18 2200 AC 06/18 PO 2123 Omeprazole 40 MG BID 06/14 1000 AC 06/18 PO 2123 Patient Medication 1 UNIT ONE NR 06/18 1530 HI Teaching ED 06/18 1600 Patient Medication 1 UNIT ONE NR 06/18 1530 HI Teaching ED 06/18 1600 Prednisone 10 MG DAILY 06/20 1000 AC PO 06/22 0959 Prednisone 20 MG DAILY 06/18 1000 AC 06/18 PO 06/20 0959 1203 Prednisone 30 MG DAILY 06/16 1000 DC 06/17 PO 06/18 0959 1329 Tiotropium [place] 1 PUF DAILY 06/11 1000 AC 06/18 INH 1203 Vital Signs & I&O Last 24 Hrs of Vitals and I&O: Vital Signs Date Time Temp Pulse Resp B/P B/P Pulse O2 O2 Flow FiO2 Mean Ox Delivery Rate 06/19 0558 56 97 06/19 0045 74 98 06/19 0008 97.9 65 25 120/60 97 BIPAP 06/19 0000 95 BIPAP 30% 06/18 2200 108 99 06/18 1748 100.0 116 28 118/64 96 Nasal 2.0L Cannula 06/18 1620 95 Nasal 2.0L Cannula 06/18 1600 Nasal 2.0L Cannula 06/18 1203 120/70 06/18 1201 130 120/70 06/18 1130 93 06/18 0811 95 BIPAP 30% 06/18 0809 109 95 06/18 0800 BIPAP 30% 06/18 0800 97.8 118 24 114/68 95 BIPAP 30% Intake & Output 06/19 0800 06/19 0000 06/18 1600 Intake Total 607 Output Total 450 500 Balance -450 107 Intake, IV 127 Intake, Oral 480 Number 2 Bowel Movements Output, Urine 450 500 Laboratory Tests 06/18 06/18 06/18 2130 1210 1105 Blood Gas pH (7.35 - 7.45 PH) 7.39 pCO2 (35 - 45 TORR) 47 H pO2 (80 - 100 TORR) 112 H HCO3 (21 - 28 MEQ/L) 27 ABG O2 Sat (Measured) (>96.0 %) 97.0 P-50 (Temp Corrected) N Carboxyhemoglobin (1.5 - 5.0 %) 1.1 L O2 Concentration % 30 Temperature (97.0 - 100.0 FARH) 97.8 Respiration Rate (BPM) 26 O2 Delivery Method BIPAP Vent Mode ST Expiratory Pressure (CM H2O P) 6 Inspiratory Pressure (CM H2O P) 20 Coagulation APTT (25 - 37 SEC) 75 H 110 *H Miscellaneous Phlebotomy Draw Site RIGHT RADIAL Toxicology Digoxin (0.8 - 2.0 ng/mL) 1.0 06/18 06/17 0640 2245 Blood Gas pH (7.35 - 7.45 PH) 7.33 L pCO2 (35 - 45 TORR) 53 H pO2 (80 - 100 TORR) 78 L HCO3 (21 - 28 MEQ/L) 28 ABG O2 Sat (Measured) (>96.0 %) 94.0 L P-50 (Temp Corrected) Y Carboxyhemoglobin (1.5 - 5.0 %) 0.3 L O2 Concentration % 30 Temperature (97.0 - 100.0 FARH) 98.0 Respiration Rate (BPM) 24 O2 Delivery Method BIPAP Vent Mode ST Expiratory Pressure (CM H2O P) 6 Inspiratory Pressure (CM H2O P) 20 Chemistry Sodium (137 - 145 mmol/L) 137 Potassium (3.5 - 5.1 mmol/L) 5.0 Chloride (98 - 107 mmol/L) 99 Carbon Dioxide (22 - 30 mmol/L) 30 Anion Gap (5 - 16) 7 BUN (9 - 20 mg/dL) 33 H Creatinine (0.7 - 1.2 mg/dL) 1.3 H Estimated GFR (>60 ml/min) 54 L BUN/Creatinine Ratio (7 - 25 %) 25.4 H Coagulation PT (9.4 - 12.5 SEC) 49.6 *H INR (0.90 - 1.17) 4.80 *H Hematology CBC w Diff MAN DIFF ORDERED WBC (4.8 - 10.8 /CUMM) 21.8 H RBC (4.70 - 6.10 /CUMM) 3.24 L Hgb (14.0 - 18.0 G/DL) 9.1 L Hct (42 - 52 %) 28.4 L MCV (80.0 - 94.0 FL) 87.7 MCH (27.0 - 31.0 PG) 28.0 RDW (11.5 - 14.5 %) 18.7 H Plt Count (130 - 400 /CUMM) 336 MPV (7.4 - 10.4 FL) 8.9 Gran % (42.2 - 75.2 %) 93.5 H Lymphocytes % (20.5 - 51.1 %) 4.6 L Monocytes % (1.7 - 9.3 %) 1.8 Eosinophils % (0 - 5 %) 0.1 Basophils % (0.0 - 2.0 %) 0 L Absolute Granulocytes (1.4 - 6.5 /CUMM) 20.4 H Segmented Neutrophils (42.2 - 75.2 %) 90 H Band Neutrophils (0.0 - 5.0 %) 1 Absolute Lymphocytes (1.2 - 3.4 /CUMM) 1.0 L Lymphocytes (20.5 - 51.1 %) 5 L Monocytes (1.7 - 9.3 %) 2 Absolute Monocytes (0.10 - 0.60 /CUMM) 0.4 Absolute Eosinophils (0.0 - 0.7 /CUMM) 0 Absolute Basophils (0.0 - 0.2 /CUMM) 0 Metamyelocytes (0.0 - 1.0 %) 2 H Platelet Estimate (ADEQUATE) VERIFIED BY SMEAR Polychromasia 1+ Poikilocytosis 1+ Basophilic Stippling 1+ Anisocytosis 1+ Ovalocytes 1+ Brock Cells 1+ PUBS MCHC (33.0 - 37.0 G/DL) 32.0 L Miscellaneous Phlebotomy Draw Site RIGHT RADIAL 06/17 131 Blood Gas pH (7.35 - 7.45 PH) 7.32 L pCO2 (35 - 45 TORR) 55 H pO2 (80 - 100 TORR) 94 HCO3 (21 - 28 MEQ/L) 28 ABG O2 Sat (Measured) (>96.0 %) 96.0 P-50 (Temp Corrected) Y Carboxyhemoglobin (1.5 - 5.0 %) 0.3 L O2 Concentration % 2L Temperature (97.0 - 100.0 FARH) 98.0 O2 Delivery Method NC Coagulation APTT (25 - 37 SEC) 77 H 56 H Miscellaneous Phlebotomy Draw Site RIGHT RADIAL Impression/Plan Impression/Plan Impression/Plan: Physical Exam General Appearance: Sleepy No Acute Distress on bipap Other Physical Findings: Skin: No Rashes, No Breakdown HEENT: Atraumatic, PERRLA, EOMI, Mucous Membr. moist/pink Neck: Supple, No JVD Cardiovascular: Regular Rate, Normal S1, Normal S2 Lungs: b/l decreased breath sound on Auscultation Abdomen: Normal Bowel Sounds, Soft Neurological: no change than yesterday, grossly intact Extremities: No Clubbing, No Cyanosis, Edema present b/l, Normal Pulses Vascular: Pulses Symmetrical IMPRESSION 76-year-old gentleman with * Acute on chronic hypercarbic and hypoxemic respiratory failure slowly improving related to multiple factors including underlying heart failure and COPD with obesity hypoventilation syndrome * Atelectasis * Lower extremity partially occlusive DVT * Chronic hypercarbia * Atrial fib flutter on anticoagulation * Leukocytosis * Diabetes * Elevated troponin with cardiomyopathy with low ejection fraction RECOMMENDATION Continue BiPAP Genital diuresis, Cardiology foll follow blood work owing Continue anticoagulation per cardiology keep INR around 2 Continue Spiriva Steroid taper Watch off antibiotics Cardiology following Watch heart rate ABG only if patient is less responsive Patient wishes to be DNR/DNI
[2016-06-19 08:14] LABS: ABSOLUTE BASOPHIL COUNT 0 /CUMM (0.0-0.2); ABSOLUTE EOSINOPHIL COUNT 0 /CUMM (0.0-0.7); ABSOLUTE GRANULOCYTE CT 17.4 /CUMM (1.4-6.5); ABSOLUTE MONOCYTE COUNT 0.5 /CUMM (0.10-0.60); BASOPHIL % 0 % (0.0-2.0); EOSINOPHIL % 0.1 % (0-5); GRANULOCYTE % 91.7 % (42.2-75.2); HEMATOCRIT 27.1 % (42-52); MEAN CORPUSCULAR HGB 27.8 PG (27.0-31.0); MEAN CORPUSCULAR HGB CONC 31.6 G/DL (33.0-37.0); MEAN CORPUSCULAR VOLUME 87.9 FL (80.0-94.0); MEAN PLATELET VOLUME 9.3 FL (7.4-10.4); PLATELET COUNT 322 /CUMM (130-400); RBC DISTRIBUTION WIDTH 18.6 % (11.5-14.5); RED BLOOD CELL CT 3.08 /CUMM (4.70-6.10)
[2016-06-19 08:40] LABS: PT 61.3 SEC (9.4-12.5)
[2016-06-19 08:53] VITALS: BP 104/60
--- NOTE | 2016-06-19 09:07 | PN- Housestaff ---
ANNA BARRETT,IMGE 06/19/16 0907: Subjective Follow-up For: Acute on chronic respiratory failure with hypoxemia and hypercapnia Atrial flutter BLE and RUE DVT Supratherapeutic INR Tele-Events Since Last Visit: Atrial flutter HR 100-117 Some PVCs Subjective: No acute events overnight. Patient seen and examined this morning. He is sleeping comfortably in bed but is easily arousable. He offers no complaints. He denies shortness of breath, chest pain or palpitations. He remains on 2 L NC. Review of Systems Constitutional: Reports: see HPI. Objective Last 24 Hrs of Vital Signs/I&O Vital Signs Date Time Temp Pulse Resp B/P B/P Pulse O2 O2 Flow FiO2 Mean Ox Delivery Rate 06/19 2118 83 97 06/19 1718 97.4 109 28 132/78 99 06/19 1655 97 Nasal 2.0L Cannula 06/19 1600 Nasal 2.0L Cannula 06/19 0905 104/60 06/19 0904 118 104/60 06/19 0853 97.0 102 26 104/60 99 Nasal 2.0L Cannula 06/19 0811 94 Nasal 2.0L Cannula 06/19 0800 Nasal 2.0L Cannula 06/19 0558 56 97 06/19 0045 74 98 06/19 0008 97.9 65 25 120/60 97 BIPAP 06/19 0000 95 BIPAP 30% Intake & Output 06/19 1600 06/19 0800 06/19 0000 Intake Total 855 469.6 Output Total 750 800 450 Balance 105 -330.4 -450 Intake, IV 55 109.6 Intake, Oral 800 360 Output, Urine 750 800 450 Patient 110.393 kg Weight Weight Standing Scale Measurement Method Physical Exam General Appearance: Alert, Oriented X3, No Acute Distress HEENT: Atraumatic, Mucous Membr. moist/pink Neck: Supple Cardiovascular: Irregularly Irregular Lungs: Clear to Auscultation Abdomen: Soft, No Tenderness, Positive Bowel Sounds Extremities: 2+ Pitting Edema on Bilateral Lower Extremities Current Medications: Current Medications Sig/Amadeo Start time Last Medication Dose Route Stop Time Status Admin Albuterol Sulfate 3 ML EVERY 4 HRS/AWAKE 06/12 1999 AC 06/19 INH 2105 Aspirin Buffered 81 MG DAILY 06/15 1000 AC 06/19 PO 0904 Atorvastatin Calcium 40 MG 1700 06/11 1700 AC 06/19 PO 1720 Digoxin 0.125 MG 7:30AM 06/19 0730 AC 06/19 PO 0904 Furosemide 20 MG DAILY 06/19 1000 AC 06/19 PO 0905 Heparin Sodium 25,000 UNIT Q24H 06/15 0930 DC 06/19 (Porcine) IV 0107 Sodium Chloride 500 ML Insulin Aspart 0 TIDAC/HS 06/15 1700 AC 06/19 SC 1721 Insulin Detemir 10 UNITS BID 06/17 2200 AC 06/19 SC 1018 Ipratropium [place] 2.5 ML Q4 HRS NEEDED PRN 06/12 1130 AC 06/16 INH 1135 Lactobacillus 1 CAP DAILY 06/13 1129 AC 06/19 Acidophilus PO 0905 Metoprolol Tartrate 50 MG BID 06/18 2200 AC 06/19 PO 0905 Omeprazole 40 MG BID 06/14 1000 AC 06/19 PO 0905 Prednisone 10 MG DAILY 06/20 1000 AC PO 06/22 0959 Prednisone 20 MG DAILY 06/18 1000 AC 06/19 PO 06/20 0959 0905 Tiotropium [place] 1 PUF DAILY 06/11 1000 AC 06/19 INH 1017 Last 24 Hrs of Lab/Sumanth Results Last 24 Hrs of Labs/Mics: Laboratory Tests 06/19/16 0900: APTT Cancelled 06/19/16 0630: Anion Gap 4 L, Estimated GFR 54 L, BUN/Creatinine Ratio 23.1, PT 61.3 *H, INR 5.94 *H, CBC w Diff MAN DIFF ORDERED, RBC 3.08 L, MCV 87.9, MCH 27.8, RDW 18.6 H, MPV 9.3, Gran % 91.7 H, Lymphocytes % 5.4 L, Monocytes % 2.8, Eosinophils % 0.1, Basophils % 0 L, Absolute Granulocytes 17.4 H, Absolute Lymphocytes 1.0 L, Absolute Monocytes 0.5, Absolute Eosinophils 0, Absolute Basophils 0, Platelet Estimate VERIFIED BY SMEAR, Polychromasia 1+, Basophilic Stippling 1+, Anisocytosis 1+, PUBS MCHC 31.6 L Assessment/Plan Assessment: 76 y/o M with PMHx of T2DM, CAD s/p CABG and COPD on 2 L home oxygen who is admitted with DVT of BLE and RUE, acute on chronic respiratory failure with hypoxemia and hypercapnia and persistent tachycardia. #Acute on chronic respiratory failure with hypoxemia and hypercapnia: Secondary to acute on chronic HFrEF, COPD and obesity hypoventilation syndrome. Remains on 2 L oxygen. With persistent edema. * Cardiology and pulmonology following. Appreciate their recs. * Continue BiPAP PRN. * Continue prednisone taper. * Monitor off antibiotics. * Continue Lasix 20 mg PO daily. * Check ABG if patient develops AMS. * Continue Spiriva 1 puff daily. * Monitor daily BMPs. #Atrial flutter: Heart rate improved with current regiment of digoxin and metoprolol. * Continue digoxin 0.125 mg PO daily and metoprolol 50 mg PO BID. * Continue to monitor digoxin level closely in the setting of renal insufficiency. * Monitor heart rate closely. #BLE and RUE DVT: INR 5.94 today. Goal INR 2-2.5. * IV heparin drip discontinued. * Hold warfarin. * Continue to monitor INR daily. Diet: Consistent Carbohydrate 2 - Mechanical Soft/Ground and [place] Thick DVT PPx: ALPs CODE: DNR/DNI Problem List: 1. Atrial flutter 2. Deep vein thrombosis (DVT) of right upper extremity 3. Acute on chronic respiratory failure with hypoxia and hypercapnia 4. HFrEF (heart failure with reduced ejection fraction) 5. COPD 6. Obesity hypoventilation syndrome 7. Supratherapeutic INR Pain Ratin Pain Location: N/A Pain Goal: Remain pain free Pain Plan: N/A Tomorrow's Labs & Rationales: CBC to monitor WBC in the setting of leukocytosis BMP to monitor lytes and kidney function in the setting of CKD INR in the setting of supratherapeutic INR Digoxin level in the setting of digoxin therapy JUAN BARRETT,[facility] 06/19/16 1703: Attending MD Review Statement Attending Statement Attending MD Statement: examined this patient, discuss w/resident/PA/OPTICIAN APPRENTICE, agreed w/resident/PA/OPTICIAN APPRENTICE, reviewed EMR data (avail), discussed with nursing, discussed with case mgmt, reviewed images Attending Assessment/Plan: 76-year-old male who has been admitted with bilateral lower extremity DVT and right upper extremity DVT with tachycardia and shortness of breath. Patient was seen and examined on the bedside and does not complain of any shortness of breath, palpitations or chest pain. His labs were reviewed which showed an elevated INR of 5.94 And a ditch level of 1.0. Cardiology on board recommended to continue with digoxin of 0.125 mg and continue with metoprolol 50 mg twice a day. Coreg has already been stopped. Will continue on Lasix 20 mg per oral daily with follow-up on electrolytes. We'll hold on Coumadin as it is supratherapeutic today with an INR of 5.94. Patient is being kept on BiPAP and his edema of the lower extremities is improving. Continue to taper steroids and watch off antibiotics.
--- NOTE | 2016-06-19 16:23 | PN- Cardiology ---
Subjective Subjective: * No complaints of chest discomfort, lightheadedness or palpitations. He does report some shortness of breath. * atrial flutter with controlled heart rate. * INR is 5.9 * creatinine is 1.3 * digoxin level 1.0 Objective Vital Signs and I&Os Vital Signs Date Time Temp Pulse Resp B/P B/P Pulse O2 O2 Flow FiO2 Mean Ox Delivery Rate 06/19 0905 104/60 06/19 0904 118 104/60 06/19 0853 97.0 102 26 104/60 99 Nasal 2.0L Cannula 06/19 0811 94 Nasal 2.0L Cannula 06/19 0800 Nasal 2.0L Cannula 06/19 0558 56 97 06/19 0045 74 98 06/19 0008 97.9 65 25 120/60 97 BIPAP 06/19 0000 95 BIPAP 30% 06/18 2200 108 99 06/18 1748 100.0 116 28 118/64 96 Nasal 2.0L Cannula 06/18 1620 95 Nasal 2.0L Cannula Intake & Output 06/19 1600 06/19 0800 06/19 0000 06/18 1600 06/18 0800 06/18 0000 Intake Total 855 469.6 607 246 180 Output Total 750 800 450 500 250 850 Balance 105 -330.4 -450 107 -4 -670 Intake, IV 55 109.6 127 146 150 Intake, Oral 800 360 480 100 30 Number 2 0 Bowel Movements Output, Urine 750 800 450 500 250 850 Patient 243 lb 246 lb Weight Weight Standing Scale [place] Lift Measurement Method Physical Exam: General: WD/morbidly obese male in NAD; alert and oriented x 3 Heart: irregularly irregular Lungs: clear anteriorly Extremities: 2+ bilateral leg edema Assessment/Plan Assessment/Plan * This patient continues has an improved heart rate on his current dose of digoxin and Metoprolol. His digoxin level was trending toward being supratherapeutic but has improved. In the setting of renal insufficiency we will use digoxin with care. Continue at 0.125mg daily. Metoprolol may affect heart rate more without lowering blood pressure quite as much as a beta benigno with alpha blocking effect and it was therfore prescribed in place of Coreg. * Continue Lasix at 20mg daily due to some persistent edema. Follow his BUN, creatinine and potassium. * Keep INR 2-2.5. His coumadin will need to be held. Continue telemetry? Yes
[2016-06-19 17:18] VITALS: BP 132/78
[2016-06-19 23:56] VITALS: BP 110/60
[2016-06-20 08:11] LABS: ABSOLUTE BASOPHIL COUNT 0 /CUMM (0.0-0.2); ABSOLUTE EOSINOPHIL COUNT 0 /CUMM (0.0-0.7); ABSOLUTE GRANULOCYTE CT 16.1 /CUMM (1.4-6.5); ABSOLUTE LYMPH COUNT 0.7 /CUMM (1.2-3.4); ABSOLUTE MONOCYTE COUNT 0.7 /CUMM (0.10-0.60); BASOPHIL % 0 % (0.0-2.0); EOSINOPHIL % 0.1 % (0-5); GRANULOCYTE % 91.6 % (42.2-75.2); HEMATOCRIT 27.2 % (42-52); MEAN CORPUSCULAR HGB 28.2 PG (27.0-31.0); MEAN CORPUSCULAR HGB CONC 31.7 G/DL (33.0-37.0); MEAN CORPUSCULAR VOLUME 88.8 FL (80.0-94.0); MEAN PLATELET VOLUME 8.9 FL (7.4-10.4); PLATELET COUNT 306 /CUMM (130-400); RBC DISTRIBUTION WIDTH 19.1 % (11.5-14.5); RED BLOOD CELL CT 3.06 /CUMM (4.70-6.10); WHITE BLOOD CELL COUNT 17.6 /CUMM (4.8-10.8)
[2016-06-20 08:16] LABS: PT 36.6 SEC (9.4-12.5)
[2016-06-20 08:22] VITALS: BP 118/62
--- NOTE | 2016-06-20 09:07 | PN- Housestaff ---
DON BARRETT,BRANDON 06/20/16 0906: Subjective Follow-up For: Tachycardia DVT Acute kidney injury Leukocytosis Complaints: no complaints Tele-Events Since Last Visit: a flutter, HR in 100s Subjective: I followed up and examined the patient today. He was using BiPAP at the time of interview this morning, so could not speak then, but suggested that he is comfortable. His vitals have been stable and telemetry recording as noted above. No active issues. Review of Systems Constitutional: Reports: no symptoms. Objective Last 24 Hrs of Vital Signs/I&O Vital Signs Date Time Temp Pulse Resp B/P B/P Pulse O2 O2 Flow FiO2 Mean Ox Delivery Rate 06/20 1559 99 Nasal 2.0L Cannula 06/20 1530 98.5 101 18 122/52 96 Nasal 1.5L Cannula 06/20 1044 78 120/68 06/20 0822 98.3 78 24 118/62 99 BIPAP 06/20 0800 Nasal 2.0L Cannula 06/20 0759 96 Nasal 2.0L Cannula 06/20 0757 78 98 06/20 0645 103 110/60 06/20 0611 102 97 06/20 0301 109 98 06/20 0000 BIPAP 06/19 2356 97.6 70 24 110/60 97 BIPAP 06/19 2200 103 110/60 06/19 2118 83 97 Intake & Output 06/20 1600 06/20 0800 06/20 0000 Intake Total 150 Output Total 900 550 350 Balance -900 -400 -350 Intake, Oral 150 Number 1 Bowel Movements Output, Urine 900 550 350 Patient 109.316 kg Weight Weight [place] Lift Measurement Method Physical Exam General Appearance: Alert, Oriented X3, Cooperative, No Acute Distress Other Physical Findings: Skin: No Rashes, No Breakdown HEENT: Atraumatic, PERRLA, EOMI, Mucous Membr. moist/pink, using BiPAP Neck: Supple, No JVD Cardiovascular: Regular Rate, Normal S1, Normal S2 Lungs: b/l decreased breath sound on Auscultation Abdomen: Normal Bowel Sounds, Soft Neurological: no change than yesterday, grossly intact Extremities: No Clubbing, No Cyanosis, Edema present b/l, Normal Pulses Vascular: Pulses Symmetrical Current Medications: Current Medications Sig/Amadeo Start time Last Medication Dose Route Stop Time Status Admin Albuterol Sulfate 3 ML EVERY 4 HRS/AWAKE 06/12 1999 AC 06/20 INH 1555 Aspirin Buffered 81 MG DAILY 06/15 1000 AC 06/20 PO 1042 Atorvastatin Calcium 40 MG 1700 06/11 1700 AC 06/20 PO 1700 Digoxin 0.125 MG 7:30AM 06/19 0730 AC 06/20 PO 0645 Furosemide 20 MG DAILY 06/19 1000 AC 06/20 PO 1042 Insulin Aspart 0 TIDAC/HS 06/15 1700 AC 06/20 SC 1700 Insulin Detemir 10 UNITS BID 06/17 2200 AC 06/20 SC 1031 Ipratropium [place] 2.5 ML Q4 HRS NEEDED PRN 06/12 1130 AC 06/16 INH 1135 Lactobacillus 1 CAP DAILY 06/13 1129 AC 06/20 Acidophilus PO 1042 Metoprolol Tartrate 50 MG BID 06/18 2200 AC 06/20 PO 1044 Omeprazole 40 MG BID 06/14 1000 AC 06/20 PO 0644 Prednisone 10 MG DAILY 06/20 1000 AC 06/20 PO 06/22 0959 1042 Prednisone 20 MG DAILY 06/18 1000 DC 06/19 PO 06/20 0959 0905 Tiotropium [place] 1 PUF DAILY 06/11 1000 AC 06/20 INH 1044 Last 24 Hrs of Lab/Sumanth Results Last 24 Hrs of Labs/Mics: Laboratory Tests 06/20/16 0610: Anion Gap 8, Estimated GFR > 60, BUN/Creatinine Ratio 30.9 H, PT 36.6 H, INR 3.53 H, CBC w Diff MAN DIFF ORDERED, RBC 3.06 L, MCV 88.8, MCH 28.2, RDW 19.1 H, MPV 8.9, Gran % 91.6 H, Lymphocytes % 4.2 L, Monocytes % 4.1, Eosinophils % 0.1, Basophils % 0 L, Absolute Granulocytes 16.1 H, Segmented Neutrophils 91 H, Band Neutrophils 1, Absolute Lymphocytes 0.7 L, Lymphocytes 4 L, Monocytes 2, Absolute Monocytes 0.7 H, Absolute Eosinophils 0, Absolute Basophils 0, Myelocytes 2 H, Polychromasia 1+, Hypochromic-Microcytic 1+, Poikilocytosis 1+, Basophilic Stippling 1+, Anisocytosis 1+, Elliptocytes 1+, PUBS MCHC 31.7 L, Digoxin 0.9 Assessment/Plan Assessment: 76 y/o M with PMHx of T2DM, CAD s/p CABG and COPD on 2 L home oxygen who is admitted with DVT of BLE and RUE, acute on chronic respiratory failure with hypoxemia and hypercapnia and persistent tachycardia. #Acute on chronic respiratory failure with hypoxemia and hypercapnia: Secondary to acute on chronic HFrEF, COPD and obesity hypoventilation syndrome. Remains on 2 L oxygen. With persistent edema. * Cardiology and pulmonology following. Appreciate their recs. * Continue BiPAP PRN. * Continue prednisone taper. * Monitor off antibiotics. * Continue Lasix 20 mg PO daily. * Check ABG if patient develops AMS. * Continue Spiriva 1 puff daily. * Monitor daily BMPs. #Atrial flutter: Heart rate improved with current regiment of digoxin and metoprolol. * Continue digoxin 0.125 mg PO daily and metoprolol 50 mg PO BID. * Continue to monitor digoxin level closely in the setting of renal insufficiency. * Monitor heart rate closely. #BLE and RUE DVT: INR 3.53 today. Goal INR 2-2.5. * Hold warfarin today. * Continue to monitor INR daily. Diet: Consistent Carbohydrate 2 - Mechanical Soft/Ground and [place] Thick DVT PPx: ALPs CODE: DNR/DNI Problem List: 1. Atrial flutter 2. DVT (deep venous thrombosis) 3. HFrEF (heart failure with reduced ejection fraction) 4. HTN (hypertension) 5. HLD (hyperlipidemia) Pain Ratin Pain Location: - Pain Goal: Pain 4 or less Pain Plan: prn Tomorrow's Labs & Rationales: INR, Digoxin level, CBC, BEP, Mg URSULA BARRETT,GRETA 06/20/16 6034: Attending MD Review Statement Attending Statement Attending MD Statement: examined this patient, discuss w/resident/PA/SUPERVISOR [employer]CRAFT MAINTENANCE, agreed w/resident/PA/SUPERVISOR [employer]CRA[employer] MAINTENANCE, reviewed EMR data (avail), discussed with nursing, amended to note Attending Assessment/Plan: The patient was seen and discussed with house staff. Agree with the plan of care as outlined. HR appears controlled at present. WBC decreased. Continue to follow.
--- NOTE | 2016-06-20 09:47 | PN- Pulmonary ---
Subjective HPI/Critical Care Issues: pt seen and examined bipap overnight afebrile hemodynamically stable including heart rate Objective Current Medications: Current Medications Sig/Amadeo Start time Last Medication Dose Route Stop Time Status Admin Albuterol Sulfate 3 ML EVERY 4 HRS/AWAKE 06/12 1999 AC 06/20 INH 0752 Aspirin Buffered 81 MG DAILY 06/15 1000 AC 06/19 PO 0904 Atorvastatin Calcium 40 MG 1700 06/11 1700 AC 06/19 PO 1720 Digoxin 0.125 MG 7:30AM 06/19 0730 AC 06/20 PO 0645 Furosemide 20 MG DAILY 06/19 1000 AC 06/19 PO 0905 Heparin Sodium 25,000 UNIT Q24H 06/15 0930 DC 06/19 (Porcine) IV 0107 Sodium Chloride 500 ML Insulin Aspart 0 TIDAC/HS 06/15 1700 AC 06/19 SC 1721 Insulin Detemir 10 UNITS BID 06/17 2200 AC 06/19 SC 2200 Ipratropium [place] 2.5 ML Q4 HRS NEEDED PRN 06/12 1130 AC 06/16 INH 1135 Lactobacillus 1 CAP DAILY 06/13 1129 AC 06/19 Acidophilus PO 0905 Metoprolol Tartrate 50 MG BID 06/18 2200 AC 06/19 PO 2200 Omeprazole 40 MG BID 06/14 1000 AC 06/20 PO 0644 Prednisone 10 MG DAILY 06/20 1000 AC PO 06/22 0959 Prednisone 20 MG DAILY 06/18 1000 AC 06/19 PO 06/20 0959 0905 Tiotropium [place] 1 PUF DAILY 06/11 1000 AC 06/19 INH 1017 Vital Signs & I&O Last 24 Hrs of Vitals and I&O: Vital Signs Date Time Temp Pulse Resp B/P B/P Pulse O2 O2 Flow FiO2 Mean Ox Delivery Rate 06/20 821 98.3 78 24 118/62 99 BIPAP 06/20 0759 96 Nasal 2.0L Cannula 06/20 0757 78 98 06/20 0645 103 110/60 06/20 0611 102 97 06/20 0301 109 98 06/20 0000 BIPAP 06/19 2356 97.6 70 24 110/60 97 BIPAP 06/19 2200 103 110/60 06/19 2118 83 97 06/19 1718 97.4 109 28 132/78 99 06/19 1655 97 Nasal 2.0L Cannula 06/19 1600 Nasal 2.0L Cannula Intake & Output 06/20 1600 06/20 0800 06/20 0000 Intake Total 150 Output Total 550 350 Balance -400 -350 Intake, Oral 150 Output, Urine 550 350 Patient 241 lb Weight Weight [place] Lift Measurement Method Exam Other Physical Findings: gen awake and alert heent ncat cvs s1, s2 lungs bilateral scattered rhonchi abd soft bs+ ext 1+ edema Results Last 24 Hrs of Lab Results: Laboratory Tests 06/20/16 0610: Anion Gap 8, Estimated GFR > 60, BUN/Creatinine Ratio 30.9 H, PT 36.6 H, INR 3.53 H, CBC w Diff MAN DIFF ORDERED, WBC Pending, RBC Pending, Hgb Pending, Hct Pending, MCV Pending, MCH Pending, RDW Pending, Plt Count Pending, MPV Pending, Gran % Pending, Lymphocytes % Pending, Monocytes % Pending, Eosinophils % Pending, Basophils % Pending, Absolute Granulocytes Pending, Segmented Neutrophils Pending, Absolute Lymphocytes Pending, Absolute Monocytes Pending, Absolute Eosinophils Pending, Absolute Basophils Pending, PUBS MCHC Pending, Digoxin 0.9 Impression/Plan Impression/Plan Impression/Plan: Impression 76 year old man * improved hypercarbic and hypoxemic respiratory failure secondary to underlying CHF * COPD is chornic and appears compensated, however we are treating for a possible mild exacerbation that can be due to fluid overload and underlying atelectasis * leukocytosis likely steroid induced, no underlying infiltrates * partially occlussive bilateral LE DVTs 06/12 Plan - continue a/c for VTE - DVTs - coumadin bridge - INR 2-3 goal (suprathrepeutic) - trc/nebs - off abx - bipap nocturnal and prn - prednisone taper as ordered - diuresis, f/u ins/outs, daily weights - f/u cardiology recommendations, tachycardia resolved DVT prophylaxis at all times
[2016-06-20 15:30] VITALS: BP 122/52
--- NOTE | 2016-06-20 18:49 | PN- Cardiology ---
Subjective Subjective: No complaints. Denies any chest discomfort, palpitations, shortness of breath, etc. On telemetry, remains in atrial flutter with variable block and better overall control of the ventricular response. Objective Vital Signs and I&Os Vital Signs Date Time Temp Pulse Resp B/P B/P Pulse O2 O2 Flow FiO2 Mean Ox Delivery Rate 06/20 1600 99 Nasal 1.5L Cannula 06/20 1559 99 Nasal 2.0L Cannula 06/20 1530 98.5 101 18 122/52 96 Nasal 1.5L Cannula 06/20 1044 78 120/68 06/20 0822 98.3 78 24 118/62 99 BIPAP 06/20 0800 Nasal 2.0L Cannula 06/20 0759 96 Nasal 2.0L Cannula 06/20 0757 78 98 06/20 0645 103 110/60 06/20 0611 102 97 06/20 0301 109 98 06/20 0000 BIPAP 06/19 2356 97.6 70 24 110/60 97 BIPAP 06/19 2200 103 110/60 06/19 2118 83 97 Intake & Output 06/20 1600 06/20 0800 05 0000 06/19 1600 06/19 0800 06/19 0000 Intake Total 150 855 469.6 Output Total 900 550 350 750 800 450 Balance -900 -400 -350 105 -330.4 -450 Intake, IV 55 109.6 Intake, Oral 150 800 360 Number 1 Bowel Movements Output, Urine 900 550 350 750 800 450 Patient 241 lb 243 lb Weight Weight [place] Lift Standing Scale Measurement Method Physical Exam: Well-developed, morbidly obese elderly male in no acute distress with nasal oxygen in place. Vital signs: See above. Lungs: Decreased breath sounds bilaterally Heart: S1, S2 (irregularly, irregular) with no murmur, gallop, or rub appreciated. Extremities: Trace edema. Assessment/Plan Assessment/Plan 76-year-old morbidly obese male with a history of former heavy tobacco use, COPD on home oxygen with previous exacerbations, obesity hyperventilation syndrome, JUANITO on CPAP, previous stroke, CKD, chronic anemia, HTN, HLD, DM, and CAD (s/p SD's by ECG/LV systolic dysfunction with previous HF s/p CABG 2011 at [facility] who presented via ambulance from his F ([facility]) with AMS, hypercarbic and hypoxemic respiratory failure secondary to HF, +/-mild COPD exacerbation who was additionally found to have partially occlusive bilateral LE DVTs for which anticoagulation was initiated at VTE dosing. Recommendations: * Telemetry reveals atrial flutter with variable ventricular response now reasonably well controlled after 0.75 mg IV loading dose, adjusted down given CKD. Start daily digoxin 0.125 mg daily in a.m. * Check "trough" digoxin level i.e., 6 to 12 (optimal) hours after tomorrow a.m. 's dosage. * Continue metoprolol 50 mg twice daily metoprolol. * Continue warfarin anticoagulation or DVTs and atrial flutter. * Continue oxygen, TRC, steroids, etc. as per pulmonary medicine. * Continue to check all stools for occult blood. * Given known CAD would maintain hemoglobin at or above 8.0 g/dl. Continue telemetry? Yes
[2016-06-21 08:00] VITALS: BP 118/68
[2016-06-21 09:17] LABS: ABSOLUTE BASOPHIL COUNT 0 /CUMM (0.0-0.2); ABSOLUTE EOSINOPHIL COUNT 0.6 /CUMM (0.0-0.7); ABSOLUTE GRANULOCYTE CT 12.9 /CUMM (1.4-6.5); ABSOLUTE LYMPH COUNT 1.9 /CUMM (1.2-3.4); BASOPHIL % 0 % (0.0-2.0); EOSINOPHIL % 3.4 % (0-5); GRANULOCYTE % 79.2 % (42.2-75.2); HEMATOCRIT 27.9 % (42-52); MEAN CORPUSCULAR HGB 27.3 PG (27.0-31.0); MEAN CORPUSCULAR HGB CONC 31.1 G/DL (33.0-37.0); MEAN CORPUSCULAR VOLUME 87.7 FL (80.0-94.0); PLATELET COUNT 292 /CUMM (130-400); RBC DISTRIBUTION WIDTH 19.2 % (11.5-14.5); RED BLOOD CELL CT 3.18 /CUMM (4.70-6.10); WHITE BLOOD CELL COUNT 16.3 /CUMM (4.8-10.8)
--- NOTE | 2016-06-21 09:32 | PN- Pulmonary ---
Subjective HPI/Critical Care Issues: pt seen and examined no events overnight heart rate in 80's hemodynamically stable some pursed lipped breathing at baseline Objective Current Medications: Current Medications Sig/Amadeo Start time Last Medication Dose Route Stop Time Status Admin Albuterol Sulfate 3 ML EVERY 4 HRS/AWAKE 06/11 2000 AC 05/02 INH 0802 Aspirin Buffered 81 MG DAILY 06/15 1000 AC 06/21 PO 0856 Atorvastatin Calcium 40 MG 1700 06/11 1700 AC 05 PO 1700 Digoxin 0.125 MG 7:30AM 06/19 0730 AC 06/21 PO 0856 Furosemide 20 MG DAILY 06/19 1000 AC 06/21 PO 0855 Insulin Aspart 0 TIDAC/HS 06/15 1700 AC 06/21 SC 0852 Insulin Detemir 10 UNITS BID 06/17 2200 AC 06/21 SC 0852 Ipratropium [place] 2.5 ML Q4 HRS NEEDED PRN 06/12 1130 AC 06/16 INH 1135 Lactobacillus 1 CAP DAILY 06/13 1129 AC 06/21 Acidophilus PO 0856 Metoprolol Tartrate 50 MG BID 06/18 2200 AC 06/21 PO 0855 Omeprazole 40 MG BID 06/14 1000 AC 06/21 PO 0856 Prednisone 10 MG DAILY 06/20 1000 AC 06/21 PO 06/22 0959 0855 Prednisone 20 MG DAILY 06/18 1000 DC 06/19 PO 06/20 0959 0905 Tiotropium [place] 1 PUF DAILY 06/11 1000 AC 06/21 INH 0856 Vital Signs & I&O Last 24 Hrs of Vitals and I&O: Vital Signs Date Time Temp Pulse Resp B/P B/P Pulse O2 O2 Flow FiO2 Mean Ox Delivery Rate 06/21 0856 83 132/66 05/02 0855 83 132/66 / 0806 97 Nasal 1.5L Cannula 06/21 0800 97.4 77 18 118/68 98 Nasal 1.5L Cannula 06/21 0619 115 97 06/21 0600 96 BIPAP 06/21 0314 78 06/21 0052 108 95 05/ 0000 98.4 88 20 98 BIPAP 06/20 2223 99 97 06/20 2204 116 108/50 05/ 1600 99 Nasal 1.5L Cannula 06/20 1559 99 Nasal 2.0L Cannula 06/20 1530 98.5 101 18 122/52 96 Nasal 1.5L Cannula 06/20 1044 78 120/68 Intake & Output 06/21 1600 06/21 0800 06/21 0000 Intake Total 400 600 Output Total Balance 400 600 Intake, Oral 400 600 Exam Other Physical Findings: gen awake and alert heent ncat cvs s1, s2 lungs bilateral scattered rhonchi abd soft bs+ ext 1+ edema Results Last 24 Hrs of Lab Results: Laboratory Tests 06/21/16 0751: Anion Gap 7, Estimated GFR > 60, BUN/Creatinine Ratio 25.5 H, PT 25.0 H, INR 2.40 H, CBC w Diff NO MAN DIFF REQ, RBC 3.18 L, MCV 87.7, MCH 27.3, RDW 19.2 H, MPV 9.0, Gran % 79.2 H, Lymphocytes % 11.3 L, Monocytes % 6.1, Eosinophils % 3.4, Basophils % 0 L, Absolute Granulocytes 12.9 H, Absolute Lymphocytes 1.9 , Absolute Monocytes 1.0 H, Absolute Eosinophils 0.6, Absolute Basophils 0, PUBS MCHC 31.1 L Impression/Plan Impression/Plan Impression/Plan: Impression 76 year old man * improved hypercarbic and hypoxemic respiratory failure secondary to underlying CHF * COPD is chornic and appears compensated, however we are treating for a possible mild exacerbation that can be due to fluid overload and underlying atelectasis * leukocytosis likely steroid induced, no underlying infiltrates * partially occlussive bilateral LE DVTs 06/12 Plan - continue a/c for VTE - DVTs - coumadin bridge - INR 2-3 goal (suprathrepeutic) - trc/nebs - off abx - bipap nocturnal and prn - prednisone taper as ordered - diuresis, f/u ins/outs, daily weights - f/u cardiology recommendations, tachycardia resolved DVT prophylaxis at all times DC planning
--- NOTE | 2016-06-21 12:22 | NUR ---
PT HAD A 10 BEAT OF V TACH. PT ASYMPTOMATIC AT THIS TIME. THIS NURSE WILL CONTINUE TO MONITOR PATIENT MD TAYLOR NOTIFIED.
--- NOTE | 2016-06-21 13:50 | PN- Housestaff ---
DON BARRETT,BRANDON 06/21/16 1350: Subjective Follow-up For: Atrial flutter DVT Acute kidney injury Leukocytosis Complaints: no complaints Tele-Events Since Last Visit: Atrial flutter, heart rate ranging from 78-103, PVCs all night. Subjective: I followed up and examined the patient today. He is resting comfortably in bed, just woke up, is using oxygen via nasal cannula. He required BiPAP overnight. He doesn't have any complaints, vitals as noted above, no active issues. Review of Systems Constitutional: Reports: no symptoms. Objective Last 24 Hrs of Vital Signs/I&O Vital Signs Date Time Temp Pulse Resp B/P B/P Pulse O2 O2 Flow FiO2 Mean Ox Delivery Rate 06/21 0856 83 132/66 06/21 0855 83 132/66 06/21 0806 97 Nasal 1.5L Cannula 06/21 0800 97.4 77 18 118/68 98 Nasal 1.5L Cannula 06/21 0619 115 97 06/21 0600 96 BIPAP 06/21 0314 78 06/21 0052 108 95 06/21 0000 98.4 88 20 98 BIPAP 06/20 2223 99 97 06/20 2204 116 108/50 06/20 1600 99 Nasal 1.5L Cannula 06/20 1559 99 Nasal 2.0L Cannula 06/20 1530 98.5 101 18 122/52 96 Nasal 1.5L Cannula Intake & Output 06/21 1600 02 0800 06/21 0000 Intake Total 400 600 Output Total Balance 400 600 Intake, Oral 400 600 Physical Exam General Appearance: Alert, Oriented X3, Cooperative, No Acute Distress Other Physical Findings: Skin: No Rashes, No Breakdown HEENT: Atraumatic, PERRLA, EOMI, Mucous Membr. moist/pink, using BiPAP Neck: Supple, No JVD Cardiovascular: Regular Rate, Normal S1, Normal S2 Lungs: b/l decreased breath sound on Auscultation Abdomen: Normal Bowel Sounds, Soft Neurological: no change than yesterday, grossly intact Extremities: No Clubbing, No Cyanosis, Edema present b/l, Normal Pulses Vascular: Pulses Symmetrical Current Medications: Current Medications Sig/Amadeo Start time Last Medication Dose Route Stop Time Status Admin Albuterol Sulfate 3 ML EVERY 4 HRS/AWAKE 06/12 1999 AC 06/21 INH 1117 Aspirin Buffered 81 MG DAILY 06/15 1000 AC / PO 0856 Atorvastatin Calcium 40 MG 1700 06/11 1700 AC 06/20 PO 1700 Digoxin 0.125 MG 7:30AM 06/19 0730 AC 06/21 PO 0856 Furosemide 20 MG DAILY 06/19 1000 AC / PO 0855 Insulin Aspart 0 TIDAC/HS 06/15 1700 AC 06/21 SC 0852 Insulin Detemir 10 UNITS BID 06/17 2200 AC 06/21 SC 0852 Ipratropium [place] 2.5 ML Q4 HRS NEEDED PRN 06/12 1130 AC 06/16 INH 1135 Lactobacillus 1 CAP DAILY 06/13 1129 AC 06/21 Acidophilus PO 0856 Metoprolol Tartrate 50 MG BID 06/18 2200 AC 06/21 PO 0855 Omeprazole 40 MG BID 06/14 1000 AC 06/21 PO 0856 Patient Medication 1 ED .STK-MED ONE 06/21 1412 MD Teaching ED 06/21 1413 Prednisone 10 MG DAILY 06/20 1000 AC 06/21 PO 06/22 0959 0855 Tiotropium [place] 1 PUF DAILY 06/11 1000 AC 06/21 INH 0856 Warfarin Sodium 2.5 MG COUMADIN 1700 ONE 06/21 1700 AC PO 06/21 1701 Last 24 Hrs of Lab/Sumanth Results Last 24 Hrs of Labs/Mics: Laboratory Tests 06/21/16 0751: Anion Gap 7, Estimated GFR > 60, BUN/Creatinine Ratio 25.5 H, PT 25.0 H, INR 2.40 H, CBC w Diff NO MAN DIFF REQ, RBC 3.18 L, MCV 87.7, MCH 27.3, RDW 19.2 H, MPV 9.0, Gran % 79.2 H, Lymphocytes % 11.3 L, Monocytes % 6.1, Eosinophils % 3.4, Basophils % 0 L, Absolute Granulocytes 12.9 H, Absolute Lymphocytes 1.9 , Absolute Monocytes 1.0 H, Absolute Eosinophils 0.6, Absolute Basophils 0, PUBS MCHC 31.1 L Assessment/Plan Assessment: 76 y/o M with PMHx of T2DM, CAD s/p CABG and COPD on 2 L home oxygen who is admitted with DVT of BLE and RUE, acute on chronic respiratory failure with hypoxemia and hypercapnia and persistent tachycardia. #Acute on chronic respiratory failure with hypoxemia and hypercapnia: Secondary to acute on chronic HFrEF, COPD and obesity hypoventilation syndrome. Remains on 2 L oxygen. With persistent edema. * Cardiology and pulmonology following. Appreciate their recs. * Continue BiPAP PRN. * Continue prednisone taper. * Monitor off antibiotics. * Continue Lasix 20 mg PO daily. * Check ABG if patient develops AMS. * Continue Spiriva 1 puff daily. * Monitor daily BMPs. #Atrial flutter: Heart rate improved with current regiment of digoxin and metoprolol. But he is still having PVCs all night. Awaiting cardiology input today. * Continue digoxin 0.125 mg PO daily and metoprolol 50 mg PO BID. * Continue to monitor digoxin level closely in the setting of renal insufficiency. * Monitor heart rate closely. #BLE and RUE DVT: INR 2.4 today. Goal INR 2-2.5. * Warfarin 2.5mg today. * Continue to monitor INR daily. Diet: Consistent Carbohydrate 2 - Mechanical Soft/Ground and [place] Thick DVT PPx: ALPs CODE: DNR/DNI Problem List: 1. Atrial flutter 2. DVT (deep venous thrombosis) 3. Chronic respiratory failure with hypoxia and hypercapnia 4. HFrEF (heart failure with reduced ejection fraction) 5. T2DM (type 2 diabetes mellitus) Pain Ratin Pain Location: - Pain Goal: Pain 4 or less Pain Plan: prn Tomorrow's Labs & Rationales: INR, CBC, BEP to dose coumadin, and f/u of leukocytosis GRETA VERGARA MD 06/21/16 2136: Attending MD Review Statement Attending Statement Attending MD Statement: examined this patient, discuss w/resident/PA/SURFACE BOSS, agreed w/resident/PA/SURFACE BOSS, reviewed EMR data (avail), amended to note Attending Assessment/Plan: The patient was seen and discussed with house staff. Continued to improve. HR better controlled. Cardiology and pulmonary follow-up appreciated. Check dig level and follow INR.
[2016-06-21 15:30] VITALS: BP 122/58
--- NOTE | 2016-06-21 18:20 | PN- Cardiology ---
Subjective Subjective: No complaints. Denies any chest discomfort, palpitations, shortness of breath, etc. Remains in atrial flutter with variable block and a ventricular response in the 70-80 beat per minute range. Reportedly had a "10 beat run" at around noon time. Objective Vital Signs and I&Os Vital Signs Date Time Temp Pulse Resp B/P B/P Pulse O2 O2 Flow FiO2 Mean Ox Delivery Rate 06/21 1618 97 Nasal 2.0L Cannula 06/21 1530 98.5 78 18 122/58 97 Nasal 2.0L Cannula 06/21 0856 83 132/66 06/21 0855 83 132/66 06/21 0806 97 Nasal 1.5L Cannula 06/21 0800 97.4 77 18 118/68 98 Nasal 1.5L Cannula 06/21 0619 115 97 06/21 0600 96 BIPAP 06/21 0314 78 06/21 0052 108 95 06/21 0000 98.4 88 20 98 BIPAP 06/20 2223 99 97 06/20 2204 116 108/50 Intake & Output 06/21 1600 06/21 0000 06/20 1600 06/20 0800 06/20 0000 Intake Total 400 600 150 Output Total 900 900 550 350 Balance -900 400 600 -900 -400 -350 Intake, Oral 400 600 150 Number 1 Bowel Movements Output, Urine 900 900 550 350 Patient 241 lb Weight Weight [place] Lift Measurement Method Physical Exam: Well-developed, morbidly obese elderly male in no acute distress. Vital signs: See above. Neck: No JVD, no bruits. Lungs: Decreased breath sounds bilaterally. Heart: S1, S2 (irregularly, irregular) with no murmur, gallop, or rub appreciated. Abdomen: Soft, nontender, positive bowel sounds. Extremities: Trace edema. Current Medications: Current Medications Sig/Amadeo Start time Last Medication Dose Route Stop Time Status Admin Albuterol Sulfate 3 ML EVERY 4 HRS/AWAKE 06/12 1999 AC 06/21 INH 1117 Aspirin Buffered 81 MG DAILY 06/15 1000 AC 06/21 PO 0856 Atorvastatin Calcium 40 MG 1700 06/11 1700 AC 06/21 PO 1717 Digoxin 0.125 MG 7:30AM 06/19 0730 AC 06/21 PO 0856 Furosemide 20 MG DAILY 06/19 999 AC 06/21 PO 0855 Insulin Aspart 0 TIDAC/HS 06/15 1700 AC 06/21 SC 1718 Insulin Detemir 10 UNITS BID 06/17 2200 AC 06/21 SC 0852 Ipratropium [place] 2.5 ML Q4 HRS NEEDED PRN 06/12 1130 AC 06/16 INH 1135 Lactobacillus 1 CAP DAILY 06/13 1129 AC 06/21 Acidophilus PO 0856 Metoprolol Tartrate 50 MG BID 06/18 2200 AC 06/21 PO 0855 Omeprazole 40 MG BID 06/14 1000 AC 06/21 PO 0856 Patient Medication 1 ED .STK-MED ONE 06/21 1412 [place] Teaching ED 06/21 1413 Prednisone 10 MG DAILY 06/20 1000 AC 06/21 PO 06/22 0959 0855 Tiotropium [place] 1 PUF DAILY 06/11 1000 AC 06/21 INH 0856 Warfarin Sodium 2.5 MG COUMADIN 1700 ONE 06/21 1700 DC 06/21 PO 06/21 1701 1717 Results Last 48 Hrs of Labs/Mics: Laboratory Tests 06/21/16 0751: Anion Gap 7, Estimated GFR > 60, BUN/Creatinine Ratio 25.5 H, PT 25.0 H, INR 2.40 H, CBC w Diff NO MAN DIFF REQ, RBC 3.18 L, MCV 87.7, MCH 27.3, RDW 19.2 H, MPV 9.0, Gran % 79.2 H, Lymphocytes % 11.3 L, Monocytes % 6.1, Eosinophils % 3.4, Basophils % 0 L, Absolute Granulocytes 12.9 H, Absolute Lymphocytes 1.9 , Absolute Monocytes 1.0 H, Absolute Eosinophils 0.6, Absolute Basophils 0, PUBS MCHC 31.1 L 06/20/16 0610: Anion Gap 8, Estimated GFR > 60, BUN/Creatinine Ratio 30.9 H, PT 36.6 H, INR 3.53 H, CBC w Diff MAN DIFF ORDERED, RBC 3.06 L, MCV 88.8, MCH 28.2, RDW 19.1 H, MPV 8.9, Gran % 91.6 H, Lymphocytes % 4.2 L, Monocytes % 4.1, Eosinophils % 0.1, Basophils % 0 L, Absolute Granulocytes 16.1 H, Segmented Neutrophils 91 H, Band Neutrophils 1, Absolute Lymphocytes 0.7 L, Lymphocytes 4 L, Monocytes 2, Absolute Monocytes 0.7 H, Absolute Eosinophils 0, Absolute Basophils 0, Myelocytes 2 H, Polychromasia 1+, Hypochromic-Microcytic 1+, Poikilocytosis 1+, Basophilic Stippling 1+, Anisocytosis 1+, Elliptocytes 1+, PUBS MCHC 31.7 L, Digoxin 0.9 Assessment/Plan Assessment/Plan 76-year-old morbidly obese male with a history of former heavy tobacco use, COPD on home oxygen with previous exacerbations, obesity hyperventilation syndrome, JUANITO on CPAP, previous stroke, CKD, chronic anemia, HTN, HLD, DM, and CAD (s/p KS's by ECG/LV systolic dysfunction with previous HF s/p CABG 2010 at [facility] who presented via ambulance from his ECF ([facility]) with AMS, hypercarbic and hypoxemic respiratory failure secondary to HF, +/-mild COPD exacerbation who was additionally found to have partially occlusive bilateral LE DVTs for which anticoagulation was initiated at VTE dosing. 10 beat run of VT of concern. Recommendations: * Telemetry reveals atrial flutter with variable ventricular response now well controlled. * Recheck magnesium level. * Check "trough" digoxin level i.e., 6 to 12 (optimal) hours after tomorrow a.m. 's dosage. Continue digoxin 0.125 mg daily. * Continue metoprolol 50 mg twice daily metoprolol. * Continue warfarin anticoagulation for DVTs and atrial flutter. * Continue oxygen, TRC, steroids, etc. as per pulmonary medicine. * Continue to check all stools for occult blood. * Given known CAD would maintain hemoglobin at or above 8.0 g/dl. Continue telemetry? Yes
[2016-06-22 01:22] VITALS: BP 118/62
--- NOTE | 2016-06-22 06:56 | PN- Housestaff ---
DON BARRETT,BRANDON 06/22/16 0656: Subjective Follow-up For: Atrial flutter DVT Acute kidney injury Leukocytosis Complaints: no complaints Tele-Events Since Last Visit: Atrial flutter, heart rate 78, few PVCs overnight. Subjective: I followed up and examined the patient today. He has alert, comfortable, not in distress, doesn't have any complaints, telemetry recording as above, vitals signs have remained stable, no overnight issues otherwise. Review of Systems Constitutional: Reports: no symptoms. Objective Last 24 Hrs of Vital Signs/I&O Vital Signs Date Time Temp Pulse Resp B/P B/P Pulse O2 O2 Flow FiO2 Mean Ox Delivery Rate 06/22 0933 112/60 06/22 0933 112/60 06/22 0900 98.8 77 20 120/72 97 Nasal Cannula 06/22 0810 95 BIPAP 1.5L 06/22 0810 95 06/22 0122 98.3 81 18 118/62 98 Nasal Cannula 06/22 0032 89 96 06/22 0000 BIPAP 06/21 2231 88 98 06/21 2152 123 126/56 06/21 1618 97 Nasal 2.0L Cannula 06/21 1600 Nasal 1.5L Cannula 06/21 1530 98.5 78 18 122/58 97 Nasal 2.0L Cannula Intake & Output 06/22 1600 06/22 0800 06/22 0000 Intake Total 600 Output Total 650 800 Balance -650 -200 Intake, Oral 600 Output, Urine 650 800 Physical Exam General Appearance: Alert, Oriented X3, Cooperative, No Acute Distress Other Physical Findings: Skin: No Rashes, No Breakdown HEENT: Atraumatic, PERRLA, EOMI, Mucous Membr. moist/pink, using BiPAP Neck: Supple, No JVD Cardiovascular: Regular Rate, Normal S1, Normal S2 Lungs: b/l decreased breath sound on Auscultation Abdomen: Normal Bowel Sounds, Soft Neurological: no change than yesterday, grossly intact Extremities: No Clubbing, No Cyanosis, edema has started to go down, with wrinkling of skin bilaterally Vascular: Pulses Symmetrical Current Medications: Current Medications Sig/Amadeo Start time Last Medication Dose Route Stop Time Status Admin Albuterol Sulfate 3 ML EVERY 4 HRS/AWAKE 06/12 1999 AC 06/22 INH 1158 Aspirin Buffered 81 MG DAILY 06/15 1000 AC 05/03 PO 0933 Atorvastatin Calcium 40 MG 1700 06/11 1700 AC 06/21 PO 1717 Digoxin 0.125 MG 7:30AM 06/19 0730 AC 06/22 PO 0933 Furosemide 20 MG DAILY 06/19 1000 AC 06/22 PO 0932 Insulin Aspart 0 TIDAC/HS 06/15 1700 AC 06/22 SC 0931 Insulin Detemir 10 UNITS BID 06/17 2200 AC 06/22 SC 0932 Ipratropium [place] 2.5 ML Q4 HRS NEEDED PRN 06/12 1130 AC 06/16 INH 1135 Lactobacillus 1 CAP DAILY 06/13 1129 AC 06/22 Acidophilus PO 0932 Magnesium Oxide 400 MG ONE ONE 06/21 2145 DC 06/21 PO 06/21 214 2150 Metoprolol Tartrate 50 MG BID 06/18 2200 AC 06/22 PO 0933 Omeprazole 40 MG BID 06/14 1000 AC 06/22 PO 0933 Patient Medication 1 ED .STK-MED ONE 06/21 1412 [place] Teaching ED 06/21 1413 Prednisone 10 MG DAILY 06/20 1000 DC 06/21 PO 06/22 0959 0855 Tiotropium [place] 1 PUF DAILY 06/11 1000 AC 06/22 INH 0933 Warfarin Sodium 2.5 MG COUMADIN 1700 ONE 06/21 1700 DC 06/21 PO 06/21 1701 1717 Last 24 Hrs of Lab/Sumanth Results Last 24 Hrs of Labs/Mics: Laboratory Tests 06/22/16 0710: Anion Gap 6, Estimated GFR > 60, BUN/Creatinine Ratio 33.0 H, PT 23.9 H, INR 2.29 H, CBC w Diff NO MAN DIFF REQ, RBC 3.14 L, MCV 88.7, MCH 28.0, RDW 19.3 H, MPV 8.4, Gran % 76.9 H, Lymphocytes % 14.6 L, Monocytes % 7.0, Eosinophils % 1.3, Basophils % 0.2, Absolute Granulocytes 13.3 H, Absolute Lymphocytes 2.5, Absolute Monocytes 1.2 H, Absolute Eosinophils 0.2, Absolute Basophils 0, PUBS MCHC 31.6 L 06/21/16 1830: Digoxin 1.4 Assessment/Plan Assessment: 76 y/o M with PMHx of T2DM, CAD s/p CABG and COPD on 2 L home oxygen who is admitted with DVT of BLE and RUE, acute on chronic respiratory failure with hypoxemia and hypercapnia and persistent tachycardia. #Discharge disposition: Patient's initial presenting complaints have been resolved, and during the course of stay the DVT, respiratory failure, tachycardia (atrial flutter), RICHARD, has stabilized but he still requires further care at SNF with follow up as out patient. Thus, he is being discharged today to a SNF. #Acute on chronic respiratory failure with hypoxemia and hypercapnia: Secondary to acute on chronic HFrEF, COPD and obesity hypoventilation syndrome. Remains on 2 L oxygen via [place]. With persistent edema. * Cardiology and pulmonology following. Appreciate their recs. * Continue BiPAP PRN. * Continue to monitor off antibiotics. * Continue Lasix 20 mg PO daily. * Continue Spiriva 1 puff daily. * Monitor daily BMPs. #Atrial flutter: Heart rate improved with current regiment of digoxin and metoprolol. But he is still having PVCs all night. Awaiting cardiology input today. Digoxin level yesterday was 1.4 (within therapeutic range, 0.8-2.0). * Continue digoxin 0.125 mg PO daily and metoprolol 50 mg PO BID. * Continue to monitor digoxin level closely in the setting of renal insufficiency. * Monitor heart rate closely. #BLE and RUE DVT: INR 2.29 today. Goal INR 2-2.5. * Warfarin 2.5mg scheduled for today. * Continue to monitor INR daily. Diet: Consistent Carbohydrate 2 - Mechanical Soft/Ground and [place] Thick DVT PPx: ALPs CODE: DNR/DNI Problem List: 1. Atrial flutter 2. DVT (deep venous thrombosis) 3. Chronic respiratory failure with hypoxia and hypercapnia 4. HFrEF (heart failure with reduced ejection fraction) 5. T2DM (type 2 diabetes mellitus) Pain Ratin Pain Location: - Pain Goal: Pain 4 or less Pain Plan: prn Tomorrow's Labs & Rationales: - GRETA VERGARA MD 06/22/16 1630: Attending MD Review Statement Attending Statement Attending Statement: examined this patient, discuss w/resident/PA/DIRECTOR OF RESTAURANT, agreed w/resident/PA/DIRECTOR OF RESTAURANT, reviewed EMR data (avail), discussed with nursing, discussed with case mgmt, amended to note Attending Assessment/Plan: The patient was seen and discussed with house staff. Agree with the plan of care as outlined. OK to discharge today.
[2016-06-22 08:02] LABS: ABSOLUTE BASOPHIL COUNT 0 /CUMM (0.0-0.2); ABSOLUTE EOSINOPHIL COUNT 0.2 /CUMM (0.0-0.7); ABSOLUTE GRANULOCYTE CT 13.3 /CUMM (1.4-6.5); ABSOLUTE LYMPH COUNT 2.5 /CUMM (1.2-3.4); ABSOLUTE MONOCYTE COUNT 1.2 /CUMM (0.10-0.60); BASOPHIL % 0.2 % (0.0-2.0); EOSINOPHIL % 1.3 % (0-5); GRANULOCYTE % 76.9 % (42.2-75.2); HEMATOCRIT 27.9 % (42-52); MEAN CORPUSCULAR HGB CONC 31.6 G/DL (33.0-37.0); MEAN CORPUSCULAR VOLUME 88.7 FL (80.0-94.0); MEAN PLATELET VOLUME 8.4 FL (7.4-10.4); PLATELET COUNT 256 /CUMM (130-400); RBC DISTRIBUTION WIDTH 19.3 % (11.5-14.5); RED BLOOD CELL CT 3.14 /CUMM (4.70-6.10); WHITE BLOOD CELL COUNT 17.3 /CUMM (4.8-10.8)
[2016-06-22 08:39] LABS: PT 23.9 SEC (9.4-12.5)
[2016-06-22 09:00] VITALS: BP 120/72
--- NOTE | 2016-06-22 09:25 | PN- Pulmonary ---
Subjective HPI/Critical Care Issues: pt seen and examined bipap overnight doing well and returning to baseline heart rate remains normal afebrile Objective Current Medications: Current Medications Sig/Amadeo Start time Last Medication Dose Route Stop Time Status Admin Albuterol Sulfate 3 ML EVERY 4 HRS/AWAKE 06/11 2000 AC 03 INH 0806 Aspirin Buffered 81 MG DAILY 06/15 1000 AC 06/21 PO 0856 Atorvastatin Calcium 40 MG 1700 06/11 1700 AC 05 PO 1717 Digoxin 0.125 MG 7:30AM 06/19 0730 AC 06/21 PO 0856 Furosemide 20 MG DAILY 06/19 1000 AC 06/21 PO 0855 Insulin Aspart 0 TIDAC/HS 06/15 1700 AC 06/21 SC 2149 Insulin Detemir 10 UNITS BID 06/17 2200 AC 06/21 SC 2149 Ipratropium [place] 2.5 ML Q4 HRS NEEDED PRN 06/12 1130 AC 06/16 INH 1135 Lactobacillus 1 CAP DAILY 06/13 1129 AC 06/21 Acidophilus PO 0856 Magnesium Oxide 400 MG ONE ONE 06/21 214 DC 06/21 PO 06/21 2146 2150 Metoprolol Tartrate 50 MG BID 06/18 2200 AC 05 PO 2152 Omeprazole 40 MG BID 06/14 1000 AC 06/21 PO 2150 Patient Medication 1 ED .STK-MED ONE 06/21 1412 DC Teaching ED 06/21 1413 Prednisone 10 MG DAILY 06/20 1000 AC 06/21 PO / 0959 0855 Tiotropium [place] 1 PUF DAILY 06/11 1000 AC 06/21 INH 0856 Warfarin Sodium 2.5 MG COUMADIN 1700 ONE 06/21 1700 DC 06/21 PO 06/21 1701 1717 Vital Signs & I&O Last 24 Hrs of Vitals and I&O: Vital Signs Date Time Temp Pulse Resp B/P B/P Pulse O2 O2 Flow FiO2 Mean Ox Delivery Rate 06/22 09 98.8 77 20 120/72 97 Nasal Cannula 06/22 0810 95 BIPAP 1.5L 06/22 0810 95 06/22 0122 98.3 81 18 118/62 98 Nasal Cannula 06/22 0032 89 96 06/22 0000 BIPAP 06/21 2231 88 98 06/21 2152 123 126/56 06/21 1618 97 Nasal 2.0L Cannula 06/21 1600 Nasal 1.5L Cannula 06/21 1530 98.5 78 18 122/58 97 Nasal 2.0L Cannula Intake & Output 06/22 1600 06/22 0800 06/22 0000 Intake Total 600 Output Total 650 800 Balance -650 -200 Intake, Oral 600 Output, Urine 650 800 Exam Other Physical Findings: gen awake and alert heent ncat cvs s1, s2 lungs bilateral scattered rhonchi abd soft bs+ ext 1+ edema Results Last 24 Hrs of Lab Results: Laboratory Tests 06/22/16 0710: Anion Gap 6, Estimated GFR > 60, BUN/Creatinine Ratio 33.0 H, PT 23.9 H, INR 2.29 H, CBC w Diff NO MAN DIFF REQ, RBC 3.14 L, MCV 88.7, MCH 28.0, RDW 19.3 H, MPV 8.4, Gran % 76.9 H, Lymphocytes % 14.6 L, Monocytes % 7.0, Eosinophils % 1.3, Basophils % 0.2, Absolute Granulocytes 13.3 H, Absolute Lymphocytes 2.5, Absolute Monocytes 1.2 H, Absolute Eosinophils 0.2, Absolute Basophils 0, PUBS MCHC 31.6 L 06/21/16 1830: Digoxin 1.4 Impression/Plan Impression/Plan Impression/Plan: Impression 76 year old man * improved hypercarbic and hypoxemic respiratory failure secondary to underlying CHF * COPD is chornic and appears compensated, however we are treating for a possible mild exacerbation that can be due to fluid overload and underlying atelectasis * leukocytosis likely steroid induced, no underlying infiltrates * partially occlussive bilateral LE DVTs 06/12 Plan - continue a/c for VTE - DVTs - coumadin - INR 2-3 goal (suprathrepeutic) - trc/nebs - bipap nocturnal and prn - diuresis, f/u ins/outs, daily weights - f/u cardiology recommendations, tachycardia resolved DVT prophylaxis at all times DC planning
[2016-06-22] MEDS ORDERED: FUROSEMIDE20 M1 PO (10:00)
[2016-06-22] MEDS ORDERED: LANOXIN125 MCG PO (10:00)
[2016-06-22] MEDS ORDERED: METOPROLOL TART50 M1 PO (10:11)
[2016-06-22] MEDS ORDERED: COUMADIN2.5 M1 PO (11:50)
[2016-06-22] MEDS ORDERED: ASPIRIN EC81 M1 PO (11:50)
[2016-06-22 15:52] VITALS: BP 112/60
== END 2016-06-22 16:30 | DRG 291 ==
LOC: ERH 18:50 → 1NO 21:55 → ERHI 21:55 → EDBEDREQ 22:28 → ENRESERV 22:33 → 1NO 23:16 → ENPENDDIS 06-22 14:05 → 1NO 06-22 16:30
PROVIDERS: Dermatology; Emergency Medicine; Internal Medicine; Internal Medicine Infectious Disease; Internal Medicine Nephrology; Physician Assistant; ADMIT Internal Medicine
DX: I13.0 Hypertensive heart and chronic kidney disease with heart failure and stage 1 through stage 4 chronic kidney disease, or unspecified chronic kidney disease (principal); J15.6 Pneumonia due to other Gram-negative bacteria; G93.41 Metabolic encephalopathy; J96.11 Chronic respiratory failure with hypoxia; J96.12 Chronic respiratory failure with hypercapnia; I82.413 Acute embolism and thrombosis of femoral vein, bilateral; I24.8 Other forms of acute ischemic heart disease; F03.90 Unspecified dementia, unspecified severity, without behavioral disturbance, psychotic disturbance, mood disturbance, and anxiety; I50.23 Acute on chronic systolic (congestive) heart failure; I48.92 Unspecified atrial flutter; E66.2 Morbid (severe) obesity with alveolar hypoventilation; J44.1 Chronic obstructive pulmonary disease with (acute) exacerbation; E11.8 Type 2 diabetes mellitus with unspecified complications; Z99.81 Dependence on supplemental oxygen; Z79.01 Long term (current) use of anticoagulants; D63.1 Anemia in chronic kidney disease; N18.3 Chronic kidney disease, stage 3 (moderate); Z95.1 Presence of aortocoronary bypass graft; Z68.34 Body mass index [BMI] 34.0-34.9, adult; R00.0 Tachycardia, unspecified; E87.6 Hypokalemia; I25.10 Atherosclerotic heart disease of native coronary artery without angina pectoris; F17.200 Nicotine dependence, unspecified, uncomplicated; Z51.5 Encounter for palliative care; Z66 Do not resuscitate; Z79.4 Long term (current) use of insulin; I49.9 Cardiac arrhythmia, unspecified
CPT/HCPCS: 1NP; 6020; 36415; 76775; 78582; 81001; 82436; 87040; 87070; 87086; 93005; 93010; 93306; 93970; 96361; 96365; A9540; A9558; C8929; G0378; J0713; J1160; J1644; J1940; J2920; J3370; J7040; J7512; Q9957

== ENCOUNTER 2016-06-23 05:03 | Emergency (ER) | payer OTHER, MEDICARE ==
[~2016-06-23 05:03] MED LIST changes: +ACEPHEN650 M1 PR; +ALBUTEROL2.5 MG/3 M INH/SOL; +ASPIRIN EC81 M1 PO; +BISACODYL10 M1 RC; +COREG3.125 MG PO; +COUMADIN2.5 M1 PO; +FLEET ENEMA133 ML RC; +LANOXIN125 MCG PO; +METOPROLOL TART50 M1 PO; +PAIN & FEVER325 M1 PO; +[UNRECOGNIZED DRUG - OTHER] PO
--- NOTE | 2016-06-23 05:12 | ED CARDIAC/CP/PALPITATIONS ---
See Addendum History of Present Illness General Chief Complaint: General Adult Stated Complaint: "BIBA PER EMS RAPAID HEART RATE" Source: patient, old records, EMS, W10 Exam Limitations: no limitations Vital Signs & Intake/Output Vital Signs & Intake/Output Vital Signs Date Time Temp Pulse Resp B/P B/P Pulse O2 O2 Flow FiO2 Mean Ox Delivery Rate 06/23 0802 97.0 87 20 110/60 97 Nasal 2.0L Cannula 06/23 0757 97.0 87 20 110/60 06/23 0700 98.1 88 20 108/58 97 Nasal 2.0L Cannula 06/23 0556 100 Nasal 2.0L Cannula 06/23 0512 98.1 120 20 122/69 99 Nasal 2.0L Cannula Allergies Coded Allergies: No Known Allergies (06/23/16) Reconcile Medications Acetaminophen (Acephen) 650 MG SUPP.RECT 1 SUP MI Q4H PRN PAIN/TEMP>100 ( Reported) Acetaminophen (Pain & Fever) 325 MG TABLET 2 TAB PO Q4H PRN PAIN/TEMP>/100 ( Reported) Albuterol Sulfate 2.5 MG/3 ML (0.083 %) VIAL.NEB 1 Vial INH/STEPHANE Q4P PRN SOB ( Reported) Amino Acids/Protein Hydrolys (Pro-Stat Sugar Free Liquid) 15 GRAM-100 KCAL/30 ML LIQUID 1 TAB PO DAILY SUPPLEMENT (Reported) Aspirin (Ecotrin*) 81 MG TABLET.DR 81 MG PO DAILY HEART Bisacodyl 10 MG SUPP.RECT 1 SUP RC PRN CONSTIPATION (Reported) Budesonide 0.5 MG/2 ML AMPUL.NEB 1 Vial INH/STEPHANE BID BREATHING PROBLEMS ( Reported) Cholecalciferol (Vitamin D3) 1,000 UNIT TABLET 1,000 IU PO DAILY low vit d Digoxin (Lanoxin) 125 MCG TABLET 0.125 MG PO 7:30AM heart rate Escitalopram Oxalate 10 MG TABLET 1 TAB PO DAILY MENTAL HEALTH (Reported) Fluticasone/Salmeterol (Advair 250-50 Diskus) 250 MCG-50 MCG/DOSE BLST.W.DEV 1 PUF INH BID COPD (Reported) Furosemide 20 MG TABLET 20 MG PO DAILY water pill Glipizide 5 MG TABLET 1 TAB PO DAILY DM (Reported) Insulin Detemir (Levemir) 100 UNIT/ML VIAL 10 UNITS SC BID diabetes please continue levemir for the next 6 days and stop on april 22, 2016 Insulin Lispro (Humalog) 100 UNIT/ML VIAL DM (Reported) 151-200 2 U 201-250 4 U 251-300 6 U 301-350 8 U 351-400 10 U >400 or < 60 call Ipratropium/Albuterol Sulfate (Iprat-Albut 0.5-3(2.5) MG/3 Ml) 3 ML AMPUL.NEB 1 AMP INH 4 TIMES/DAY COPD (Reported) Magnesium Oxide (Magnesium) 400 MG CAPSULE 1 CAP PO DAILY Low Mag Metoprolol Tartrate 50 MG TABLET 50 MG PO BID HEART Na Phos,M-B/Na Phos,Di-Ba (Fleet Enema) 19 GRAM-7 GRAM/118 ML ENEMA 1 E RC DAILY PRN CONSTIPATION (Reported) Pantoprazole Sodium (Protonix) 40 MG TABLET.DR 1 TAB PO DAILY DUODENAL ULCER Polyethylene Glycol 3350 (Miralax) 17 GRAM POWD.PACK 1 PAC PO DAILY CONSTIPATION dissolve in water Rosuvastatin Calcium (Crestor) 10 MG TABLET 1 TAB PO QPM CHOLESTEROL ( Reported) Sennosides (Senna) 8.6 MG TABLET 1 TAB PO 1600 CONSTIPATION (Reported) Tiotropium [place] (Spiriva) 18 MCG CAP.W.DEV 1 CAP INH DAILY BREATHING PROBLEMS (Reported) Warfarin Sodium (Coumadin) 2.5 MG TABLET 1 TAB PO DAILY BLOOD DOSE PER INR Triage Nurses Notes Reviewed? yes HPI: Patient was discharged from the hospital yesterday after admission for hypercarbic respiratory failure. This morning, while on rounds at his nursing facility, the patient was found to be tachycardic. Patient was awoken and 911 was contacted. Patient has no complaints. Patient denies any chest pain or chest tightness. There is no shortness of breath. There are no palpitations. There is no nausea or vomiting. There is no lightheadedness. (VIDYA BARRETT,CONOR Suarez) Past History Travel History Traveled to [place] past 21 day No Medical History Any Pertinent Medical History? 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 FH: diabetes mellitus MOTHER FH: breast cancer SISTER, ; Cause: Motor vehicle accident. BROTHER, ; Cause: Cancer. FH: cancer Hx Contributory? No (VIDYA BARRETT,CONOR Suarez) Review of Systems Review of Systems Constitutional: Reports: no symptoms. EENTM: Reports: no symptoms. Respiratory: Reports: no symptoms. Cardiovascular: Reports: no symptoms. GI: Reports: no symptoms. Genitourinary: Reports: no symptoms. Musculoskeletal: Reports: no symptoms. Skin: Reports: no symptoms. Neurological/Psychological: Reports: no symptoms. Hematologic/Endocrine: Reports: no symptoms. Immunologic/Allergic: Reports: no symptoms. All Other Systems: Reviewed and Negative (VIDYA BARRETT,CONOR Suarez) Physical Exam Physical Exam General Appearance: well developed/nourished, alert, awake, anxious, mild distress Head: atraumatic, normal appearance Eyes: Bilateral: PERRL, EOMI. Ears, Nose, Throat: normal pharynx, normal ENT inspection, hearing grossly normal Neck: normal inspection, supple, full range of motion Respiratory: normal breath sounds, chest non-tender, no respiratory distress, lungs clear Cardiovascular: normal peripheral pulses, tachycardia Gastrointestinal: normal bowel sounds, soft, non-tender, no organomegaly Back: normal inspection, normal range of motion Extremities: normal inspection, normal capillary refill, normal range of motion, pedal edema Neurologic/Psych: no motor/sensory deficits, awake, alert, oriented x 3, normal mood/affect Skin: intact, normal color, warm/dry Core Measures ACS in differential dx? Yes Severe Sepsis Present: No Septic Shock Present: No (CONOR DASILVA MD) Progress Differential Diagnosis: AMI, atrial fibrillation, hyperkalemia, hyperthyroid, pneumonia, pneumothorax, PSVT, pulmonary embolism Plan of Care: Orders Procedure Date/time Status Consistent Carbohydrate 1 06/23 L Active TROPONIN LEVEL 06/23 929 Active EKG 06/23 929 Active Telemetry/Extension Work Instructor 06/23 512 Active TROPONIN LEVEL 06/23 512 Complete MAGNESIUM 06/23 512 Complete COMPREHENSIVE METABOLIC PANEL 06/23 512 Complete CBC WITHOUT DIFFERENTIAL 06/23 512 Complete EKG 06/23 0505 Active Laboratory Tests 06/23/16 0540: Anion Gap 6, Estimated GFR > 60, BUN/Creatinine Ratio 30.0 H, Glucose 113 H, Calcium 8.2 L, Magnesium 1.6, Total Bilirubin 0.4, AST 14 L, ALT 44, Alkaline Phosphatase 59, Troponin I 0.17 *H, Total Protein 4.9 L, Albumin 2.6 L, Globulin 2.3, Albumin/Globulin Ratio 1.1, CBC w Diff NO MAN DIFF REQ, RBC 3.15 L, MCV 88.0, MCH 27.9, RDW 19.9 H, MPV 9.1, Gran % 79.9 H, Lymphocytes % 14.7 L, Monocytes % 3.5, Eosinophils % 1.9, Basophils % 0 L, Absolute Granulocytes 11.2 H, Absolute Lymphocytes 2.1, Absolute Monocytes 0.5, Absolute Eosinophils 0.3, Absolute Basophils 0, PUBS MCHC 31.7 L Pre-Hospital EKG: A FLUTTER WITH RAPID RESPONSE AT [address] DEPRESSIONS. Initial ED EKG: ATRIAL FLUTTER AT 106 BPM. iNTRAVENTRICULAR CONDUCTION DELAY. nONSPECIFIC st-t CHANGES. uNCHANGED FROM PRIOR ekg. Prior EKG: unchanged Rhythm Strip: atrial flutter Hand-Off Endorsed To: MARSHALL ANDREWS DO Endorsed Time: 0700 Pending: labs Comments: Troponin was 0.17. Patient's last troponin was 0.49. Patient's heart rate was also up to 160 upon EMS arrival. Case was discussed with Dr. Crouch. Will check a second set of enzymes to make sure the troponin is not going up. (VIDYA BARRETT,CONOR Suarez) Departure Departure Disposition: STILL A PATIENT Condition: Stable Clinical Impression Primary Impression: Atrial flutter Referrals: ELLA GARCIA MD (PCP/Family) Departure Forms: Customer Survey General Discharge Information (VIDYA BARRETT,AJCKIE.) Departure Comments 06/23/16 8:41 AM Patient signed out to me by Dr. Dasilva. He is pending repeat troponin. (DARRYL CANO,MARSHALL Garcia) Critical Care Note Critical Care Note Critical Care Time: non-applicable (VIDYA BARRETT,CONOR Suarez)
[2016-06-23 05:50] LABS: ABSOLUTE BASOPHIL COUNT 0 /CUMM (0.0-0.2); ABSOLUTE EOSINOPHIL COUNT 0.3 /CUMM (0.0-0.7); ABSOLUTE GRANULOCYTE CT 11.2 /CUMM (1.4-6.5); ABSOLUTE LYMPH COUNT 2.1 /CUMM (1.2-3.4); ABSOLUTE MONOCYTE COUNT 0.5 /CUMM (0.10-0.60); BASOPHIL % 0 % (0.0-2.0); EOSINOPHIL % 1.9 % (0-5); GRANULOCYTE % 79.9 % (42.2-75.2); HEMATOCRIT 27.7 % (42-52); MEAN CORPUSCULAR HGB 27.9 PG (27.0-31.0); MEAN CORPUSCULAR HGB CONC 31.7 G/DL (33.0-37.0); MEAN PLATELET VOLUME 9.1 FL (7.4-10.4); PLATELET COUNT 186 /CUMM (130-400); RBC DISTRIBUTION WIDTH 19.9 % (11.5-14.5); RED BLOOD CELL CT 3.15 /CUMM (4.70-6.10)
[2016-06-23 11:14] VITALS: BP 102/52
== END 2016-06-23 12:26 ==
LOC: ERH 05:03
PROVIDERS: Emergency Medicine
DX: I48.92 Unspecified atrial flutter (principal); Z79.01 Long term (current) use of anticoagulants
CPT/HCPCS: 93005; 93010; 96372

== ENCOUNTER 2016-06-25 08:47 | Observation (INO) | payer OTHER, MEDICARE ==
[~2016-06-25] VITALS: Ht 172.7 cm; Wt 103.4 kg
--- NOTE | 2016-06-25 08:57 | NUR ---
TONIO FROM [facility], SENT FOR CHANGE IN MENTAL STATUS, STAFF WAS UNABLE TO WAKE PT UP THIS AM. PALE, OPENS EYES ON COMMAND. 02 SAT 73% ON ROOM AIR. PLACED ON 02 AT 3L. A FLUTTER ON CARIDAC MONITOR.
--- NOTE | 2016-06-25 08:57 | NUR ---
[facility]U CHECK [facility].
--- NOTE | 2016-06-25 09:04 | ED SKIN/ALLERGY COMPLAINT ---
History of Present Illness General Chief Complaint: Altered Mental Status Stated Complaint: CHANGE IN MENTAL STATUS Source: patient, old records, EMS, W10 Exam Limitations: clinical condition Vital Signs & Intake/Output Vital Signs & Intake/Output Vital Signs Date Time Temp Pulse Resp B/P B/P Pulse O2 O2 Flow FiO2 Mean Ox Delivery Rate 06/25 0858 98.6 75 26 123/60 96 Nasal Cannula Allergies Coded Allergies: No Known Allergies (06/23/16) Reconcile Medications Acetaminophen (Acephen) 650 MG SUPP.RECT 1 SUP MT Q4H PRN PAIN/TEMP>100 ( Reported) Acetaminophen (Pain & Fever) 325 MG TABLET 2 TAB PO Q4H PRN PAIN/TEMP>/100 ( Reported) Albuterol Sulfate 2.5 MG/3 ML (0.083 %) VIAL.NEB 1 Vial INH/STEPHANE Q4P PRN SOB ( Reported) Amino Acids/Protein Hydrolys (Pro-Stat Sugar Free Liquid) 15 GRAM-100 KCAL/30 ML LIQUID 1 TAB PO DAILY SUPPLEMENT (Reported) Aspirin (Ecotrin*) 81 MG TABLET.DR 81 MG PO DAILY HEART Bisacodyl 10 MG SUPP.RECT 1 SUP RC PRN CONSTIPATION (Reported) Budesonide 0.5 MG/2 ML AMPUL.NEB 1 Vial INH/STEPHANE BID BREATHING PROBLEMS ( Reported) Cholecalciferol (Vitamin D3) 1,000 UNIT TABLET 1,000 IU PO DAILY low vit d Digoxin (Lanoxin) 125 MCG TABLET 0.125 MG PO 7:30AM heart rate Escitalopram Oxalate 10 MG TABLET 1 TAB PO DAILY MENTAL HEALTH (Reported) Fluticasone/Salmeterol (Advair 250-50 Diskus) 250 MCG-50 MCG/DOSE BLST.W.DEV 1 PUF INH BID COPD (Reported) Furosemide 20 MG TABLET 20 MG PO DAILY water pill Glipizide 5 MG TABLET 1 TAB PO DAILY DM (Reported) Insulin Detemir (Levemir) 100 UNIT/ML VIAL 10 UNITS SC BID diabetes please continue levemir for the next 6 days and stop on april 22, 2016 Insulin Lispro (Humalog) 100 UNIT/ML VIAL DM (Reported) 151-200 2 U 201-250 4 U 251-300 6 U 301-350 8 U 351-400 10 U >400 or < 60 call Ipratropium/Albuterol Sulfate (Iprat-Albut 0.5-3(2.5) MG/3 Ml) 3 ML AMPUL.NEB 1 AMP INH 4 TIMES/DAY COPD (Reported) Magnesium Oxide (Magnesium) 400 MG CAPSULE 1 CAP PO DAILY Low Mag Metoprolol Tartrate 50 MG TABLET 50 MG PO BID HEART Na Phos,M-B/Na Phos,Di-Ba (Fleet Enema) 19 GRAM-7 GRAM/118 ML ENEMA 1 E RC DAILY PRN CONSTIPATION (Reported) Pantoprazole Sodium (Protonix) 40 MG TABLET.DR 1 TAB PO DAILY DUODENAL ULCER Polyethylene Glycol 3350 (Miralax) 17 GRAM POWD.PACK 1 PAC PO DAILY CONSTIPATION dissolve in water Rosuvastatin Calcium (Crestor) 10 MG TABLET 1 TAB PO QPM CHOLESTEROL ( Reported) Sennosides (Senna) 8.6 MG TABLET 1 TAB PO 1600 CONSTIPATION (Reported) Tiotropium [place] (Spiriva) 18 MCG CAP.W.DEV 1 CAP INH DAILY BREATHING PROBLEMS (Reported) Warfarin Sodium (Coumadin) 2.5 MG TABLET 1 TAB PO DAILY BLOOD DOSE PER INR Triage Note: BIBA FROM [facility], SENT FOR CHANGE IN MENTAL STATUS, STAFF WAS UNABLE TO WAKE PT UP THIS AM. PALE, OPENS EYES ON COMMAND. 02 SAT 73% ON ROOM AIR. PLACED ON 02 AT 3L. Triage Nurses Notes Reviewed? 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 [facility]), back surgery surgeries in bilateral shoulders right knee surgery Psychosocial History Who do you live with Son Services at Home Oxygen What is your primary language [place]ill[place] Tobacco Use: Never used ETOH Use: denies use Family History Family History, If Any: FATHER, ; Cause: MVA (motor vehicle accident). FH: diabetes mellitus MOTHER FH: breast cancer SISTER, ; Cause: Motor vehicle accident. BROTHER, ; Cause: Cancer. FH: cancer Progress Plan of Care: Orders Procedure Date/time Status LACTIC ACID 06/25 1204 Active Add-on Test (ER Only) 06/25 908 Active PROTHROMBIN TIME 06/25 905 Active ARTERIAL BLOOD GAS (GEN) 06/26 903 Active XRY-PORTABLE CHEST XRAY 06/26 903 Active Telemetry/Customer Consulting Manager 06/26 903 Active URINALYSIS 06/26 903 Active TROPONIN LEVEL 06/26 903 Active LACTIC ACID 06/26 903 Active COMPREHENSIVE METABOLIC PANEL 06/26 903 Active CBC WITHOUT DIFFERENTIAL 06/26 903 Active B-TYPE NATRIURETIC PEP (BNP) 06/26 903 Active EKG 06/25 0859 Active Departure Departure Condition: Stable Referrals: ELLA GARCIA MD (PCP/Family) Departure Forms: Customer Survey General Discharge Information
--- NOTE | 2016-06-25 09:11 | ED GENERAL ADULT ---
History of Present Illness General Chief Complaint: Altered Mental Status Stated Complaint: CHANGE IN MENTAL STATUS Source: patient Exam Limitations: no limitations Vital Signs & Intake/Output Vital Signs & Intake/Output Vital Signs Date Time Temp Pulse Resp B/P B/P Pulse O2 O2 Flow FiO2 Mean Ox Delivery Rate 06/25 1747 96.6 85 20 114/53 97 06/25 1610 97.2 79 18 133/61 97 Nasal 1.5L Cannula 06/25 1443 98.0 106 24 136/68 96 Nasal 1.5L Cannula 06/25 1137 98.7 69 23 128/64 97 Nasal 1.5L Cannula 06/25 1020 Non 1.0L ReBreather 06/25 0930 98 Nasal 3.0L Cannula 06/25 0858 98.6 75 26 123/60 96 Nasal Cannula Allergies Coded Allergies: No Known Allergies (06/23/16) Triage Note: [facility] SENT FOR CHANGE IN MENTAL STATUS, STAFF WAS UNABLE TO WAKE PT UP THIS AM. PALE, OPENS EYES ON COMMAND. 02 SAT 73% ON ROOM AIR. PLACED ON 02 AT 3L. Triage Nurses Notes Reviewed? yes Onset: Gradual Duration: hour(s): (3-4 HRS) Timing: recent history Injury Environment: home Severity: severe No Modifying Factors: none HPI: Patient is a 76-year-old male with history of diabetes, high cholesterol, respiratory failure, on chronic O2 presenting to the emergency Department chief complaint of lethargy from the [facility]. According to [facility] staff patient was lethargic this morning when he was supposed to wake up. This is unlike the patient according to [facility]. Patient was recently discharged from [facility] where he was admitted for hypercarbic respiratory failure. They sent him in for reevaluation secondary to lethargy. Patient denying any chest pain or palpitations or trouble breathing. He does report that he feels extremely tired. At the [facility] he was on 3 L nasal cannula. At time of discharge 3 days prior he was on 1-1/2 L. Denies any nausea or vomiting. Denies any change in medications. Denies any abdominal pain. He reports that he wears a CPAP machine at night. Denies any productive cough at this time but does report he has history of COPD for which she coughs often. (ALBA PHILLIPS,JATIN) Reconcile Medications Acetaminophen (Acephen) 650 MG SUPP.RECT 1 SUP SC Q4H PRN PAIN/TEMP>100 ( Reported) Acetaminophen (Pain & Fever) 325 MG TABLET 2 TAB PO Q4H PRN PAIN/TEMP>/100 ( Reported) Albuterol Sulfate 2.5 MG/3 ML (0.083 %) VIAL.NEB 1 Vial INH/STEPHANE Q4P PRN SOB ( Reported) Amino Acids/Protein Hydrolys (Pro-Stat Sugar Free Liquid) 15 GRAM-100 KCAL/30 ML LIQUID 1 TAB PO DAILY SUPPLEMENT (Reported) Aspirin (Ecotrin*) 81 MG TABLET.DR 81 MG PO DAILY HEART Bisacodyl 10 MG SUPP.RECT 1 SUP RC PRN CONSTIPATION (Reported) Budesonide 0.5 MG/2 ML AMPUL.NEB 1 Vial INH/STEPHANE BID BREATHING PROBLEMS ( Reported) Cholecalciferol (Vitamin D3) 1,000 UNIT TABLET 1,000 IU PO DAILY low vit d Digoxin (Lanoxin) 125 MCG TABLET 0.125 MG PO 7:30AM heart rate Escitalopram Oxalate 10 MG TABLET 1 TAB PO DAILY MENTAL HEALTH (Reported) Fluticasone/Salmeterol (Advair 250-50 Diskus) 250 MCG-50 MCG/DOSE BLST.W.DEV 1 PUF INH BID COPD (Reported) Furosemide 20 MG TABLET 20 MG PO DAILY water pill Glipizide 5 MG TABLET 1 TAB PO DAILY DM (Reported) Insulin Detemir (Levemir) 100 UNIT/ML VIAL 10 UNITS SC BID diabetes please continue levemir for the next 6 days and stop on april 22, 2016 Insulin Lispro (Humalog) 100 UNIT/ML VIAL DM (Reported) 151-200 2 U 201-250 4 U 251-300 6 U 301-350 8 U 351-400 10 U >400 or < 60 call Ipratropium/Albuterol Sulfate (Iprat-Albut 0.5-3(2.5) MG/3 Ml) 3 ML AMPUL.NEB 1 AMP INH 4 TIMES/DAY COPD (Reported) Magnesium Hydroxide (Milk Of Magnesia) 400 MG/5 ML ORAL.SUSP 30 ML PO DAILY PRN CONSTIPATION (Reported) Magnesium Oxide (Magnesium) 400 MG CAPSULE 1 CAP PO DAILY Low Mag Metoprolol Tartrate 50 MG TABLET 50 MG PO BID HEART Na Phos,M-B/Na Phos,Di-Ba (Fleet Enema) 19 GRAM-7 GRAM/118 ML ENEMA 1 E RC DAILY PRN CONSTIPATION (Reported) Pantoprazole Sodium (Protonix) 40 MG TABLET.DR 1 TAB PO DAILY DUODENAL ULCER Polyethylene Glycol 3350 (Miralax) 17 GRAM POWD.PACK 1 PAC PO DAILY CONSTIPATION dissolve in water Rosuvastatin Calcium (Crestor) 10 MG TABLET 1 TAB PO QPM CHOLESTEROL ( Reported) Sennosides (Senna) 8.6 MG TABLET 1 TAB PO DAILY CONSTIPATION (Reported) Tiotropium Mosier (Spiriva) 18 MCG CAP.W.DEV 1 CAP INH DAILY BREATHING PROBLEMS (Reported) Warfarin Sodium (Coumadin) 2 MG TABLET 1 TAB PO DAILY BLOOD THINNER (Reported ) (KRAIG BARRETT,JOSIANE) Past History Travel History Traveled to [place] past 21 day No Medical History Any Pertinent Medical History? see below for history Neurological: TIA, essential tremor EENT: NONE Cardiovascular: CAD, hypertension, hyperlipidemia, myocardial infarction, systolic CHF Respiratory: COPD, obstructive sleep apnea, pneumonia Gastrointestinal: NONE Hepatic: NONE Renal: chronic kidney disease Musculoskeletal: NONE Psychiatric: NONE Endocrine: diabetes, obesity Blood Disorders: anemia Cancer(s): NONE HEALTH ADMINISTRATOR/Reproductive: NONE History of MRSA: No History of VRE: No History of CDIFF: No Surgical History Surgical History: CABG (x 2010 @ [facility]), back surgery surgeries in bilateral shoulders right knee surgery Psychosocial History Who do you live with Son Services at Home Oxygen What is your primary language Zimbabwean Tobacco Use: Never used ETOH Use: denies use Family History Family History, If Any: FATHER, ; Cause: MVA (motor vehicle accident). FH: diabetes mellitus MOTHER FH: breast cancer SISTER, ; Cause: Motor vehicle accident. BROTHER, ; Cause: Cancer. FH: cancer Hx Contributory? No (JATIN HERNANDEZ) Review of Systems Review of Systems Constitutional: Reports: malaise, weakness. Comments Review of systems: See HPI, All other systems negative. Constitutional, no chills fever or weight loss, POSITIVE FATIGUE HEENT: No visual changes no sore throat no congestion Cardiovascular: No chest pain ,palpitation , orthopnea or ankle swelling Skin, no jaundice no rashes Respiratory: No dyspnea cough sputum or hemoptysis GI: No nausea no vomiting : No dysuria No hematuria Muscle skeletal: no back pain, no neck pain, Neurologic: No numbness no HEADACHE Psych: No stress anxiety or depression,. Heme/endocrine: No bruising no bleeding no polyuria or polydipsia Immunology: No splenectomy or history of AIDS (JATIN HERNANDEZ) Physical Exam Physical Exam General Appearance: no apparent distress, comfortable, lethargic, obese Comments: Obese person in no acute distress, LETHARGIC APPEARING HEENT: extraocular motion intact, no nystagmus. Pupils equally round and reactive to light and accommodation, slightly slower to react to light bilaterally. Nose is atraumatic. External auditory canal and Tympanic membranes clear. Pharynx normal. No swelling or edema. Very dry oral mucosa, dry tongue. Neck: Supple, no lymphadenopathy, normal range of motion without pain or tenderness Back: Nontender Cardiovascular: TACHY rate and rhythms Respiratory: Chest nontender. No respiratory distress.breath sounds diminished to auscultation bilaterally Abdomen: Soft, nontender nondistended, no appreciable organomegaly. Normal bowel sounds. No ascites Extremity: 2+ pitting edema in the lower extremities bilaterally no calf tenderness to palpation, normal and equal pulses. Neuro: Lethargic, responds to verbal and tactile stimuli, oriented x3, motor sensory normal, cranial nerves II through XII grossly intact. Skin: No appreciable rash on exposed skin, skin is warm and dry. Psych: Fatigued Core Measures ACS in differential dx? Yes CVA/TIA Diagnosis: No Severe Sepsis Present: No Septic Shock Present: No (JATIN HERNANDEZ) Progress Differential Diagnoses I considered the following diagnoses in my evaluation of the patient: Hypercarbic respiratory failure, COPD exacerbation, CHF, electrolytes abnormality, ACS, dehydration, acute kidney injury Plan of Care: Orders Procedure Date/time Status Consistent Carbohydrate 2 06/26 B Active PROTHROMBIN TIME 06/26 599 Active CBC WITHOUT DIFFERENTIAL 06/26 599 Active BASIC ELECTROLYTES PLUS BUN&CR 06/26 599 Active Nothing by Mouth 06/25 D Complete TROPONIN LEVEL 06/25 2350 Active EKG 06/25 2350 Active SWALLOW EVALUATION 06/25 1805 Active TRC EVALUATION (GEN) 06/25 180 Active ARTERIAL BLOOD GAS (GEN) 06/25 180 Active FingerStick- Glucose 06/25 180 Active STREP PNEUMO URINARY ANTIGEN 06/25 180 Active LEGIONELLA URINARY ANTIGEN 06/25 180 Active LOWER RESPIRATORY CULTURE 06/25 180 Active TROPONIN LEVEL 06/25 1805 Active EKG 06/25 1805 Active Pathway - chart 06/25 1634 Active Add-on Test (ER Only) 06/25 1633 Active Pathway - chart 06/25 1632 Active House Staff 06/25 1632 Active Patient Data 06/25 1632 Active Code Status 06/25 1632 Active OXYGEN SETUP (GEN) 06/25 1626 Active Saline Lock 06/[address] in observation 06/25 1626 Active Patient Data 06/25 1626 Active Vital Signs 06/25 1626 Active Activity/Ambulation 06/25 1626 Active Code Status 06/25 1626 Complete BLOOD CULTURE 06/25 1610 Active FingerStick- Glucose 06/25 1244 Active AEROSOL (GEN) 06/25 1224 Complete OXYGEN SETUP (GEN) 06/25 0951 Complete AEROSOL (GEN) 06/25 0951 Complete Intake & Output 06/25 0910 Active Add-on Test (ER Only) 06/25 0909 Active PROTHROMBIN TIME 06/25 0906 Complete ARTERIAL BLOOD GAS (GEN) 06/25 0904 Complete Telemetry/Greeting Card Maker 06/25 0904 Active URINALYSIS 06/25 0904 Complete TROPONIN LEVEL 06/25 0904 Complete LACTIC ACID 06/25 0904 Complete DIGOXIN 06/25 0904 Complete COMPREHENSIVE METABOLIC PANEL 06/25 0904 Complete CBC WITHOUT DIFFERENTIAL 06/25 0904 Complete B-TYPE NATRIURETIC PEP (BNP) 06/25 0904 Complete EKG 06/25 0859 Active VTE Mechanical Prophylaxis 06/25 UNK Active Current Medications Sig/Amadeo Start time Last Medication Dose Stop Time Status Admin Atorvastatin Calcium 10 MG 1700 06/26 1700 AC (Lipitor) Aspirin Buffered 81 MG DAILY 06/26 1000 AC (Ecotrin) Escitalopram Oxalate 10 MG DAILY 06/26 1000 AC (Lexapro) Tiotropium Mosier 1 PUF DAILY 06/26 1000 AC (Spiriva) Vancomycin HCl 1,000 MG DAILY 06/26 1000 UNir Sodium Chloride 250 ML (Normal Saline 0.9%) Insulin Aspart 0 TIDAC 06/26 0800 AC (NovoLOG) Digoxin 0.125 MG 7:30AM 06/26 0730 AC (Lanoxin) Ceftazidime 1,000 MG IQ8 05/ 0000 UNVr (Fortaz) Fluticasone 2 PUF BID 06/25 2200 AC Propionate (Flovent) Methylprednisolone 40 MG Q12 05/06 2200 CAN (Solumedrol) Metoprolol Tartrate 50 MG BID 06/25 2199 AC (Lopressor) Prednisone 40 MG DAILY 06/25 1818 UNVr Albuterol Sulfate 3 ML Q4P PRN 06/25 1799 AC (Proventil) Bisacodyl 10 MG DAILY NEEDED PRN 06/25 1800 AC (Dulcolax Supp) Polyethylene Glycol 17 GM DAILY 06/25 175 AC (Miralax) Magnesium Oxide 400 MG DAILY 06/25 175 AC (Mag-Ox) Furosemide 20 MG DAILY 06/25 1749 AC (Lasix) Acetaminophen 325 MG Q6 PRN 06/25 164 AC (Tylenol) Morphine Sulfate 2 MG Q4 PRN 06/25 164 AC (Morphine) Oxycodone/ 2 TAB Q6 PRN 06/25 164 AC Acetaminophen (Percocet) Laboratory Tests 06/25/16 1248: Urinalysis LIGHT H, Urine Color YEL, Urine Clarity CLEAR, Urine pH 6.0, Ur Specific [place] 1.020, Urine Protein TRACE H, Urine Ketones NEG, Urine Nitrite NEG, Urine Bilirubin NEG, Urine Urobilinogen 0.2, Ur Leukocyte Esterase NEG, Ur Microscopic SEDIMENT EXAMINED, Urine RBC 1-3, Urine WBC RARE, Ur Epithelial Cells RARE, Urine Mucus FEW, Urine Hemoglobin NEG, Urine Glucose NEG 06/25/16 1204: Lactic Acid Cancelled 06/25/16 1015: Anion Gap 8, Estimated GFR > 60, BUN/Creatinine Ratio 22.7, Glucose 137 H, Lactic Acid 0.8, Calcium 8.3 L, Total Bilirubin 0.7, AST 14 L, ALT 44, Alkaline Phosphatase 53, Troponin I 0.17 *H, [id number]-[id number] Pept 85806 H, Total Protein 5.0 L, Albumin 2.7 L, Globulin 2.3, Albumin/Globulin Ratio 1.2, PT 29.4 H, INR 2.83 H, CBC w Diff NO MAN DIFF REQ, RBC 3.02 L, MCV 89.1, MCH 27.4, RDW 19.9 H, MPV 8.9, Gran % 78.0 H, Lymphocytes % 13.9 L, Monocytes % 6.3, Eosinophils % 1.5, Basophils % 0.3, Absolute Granulocytes 9.2 H, Absolute Lymphocytes 1.6, Absolute Monocytes 0.7 H, Absolute Eosinophils 0.2, Absolute Basophils 0, PUBS MCHC 30.8 L, Digoxin 1.2 06/25/16 0930: pH 7.38, pCO2 63 *H, pO2 138 H, HCO3 36 H, ABG O2 Sat (Measured) 97.0, Carboxyhemoglobin 1.1 L, O2 Concentration % 3L, O2 Delivery Method NC, Phlebotomy Draw Site LEFT RADIAL Microbiology 06/25 1804 URINE ROUT: Legionella Antigen - ORD 06/25 1804 URINE ROUT: Streptococcus pneumoniae Antigen (M - ORD 06/25 180 LOWER RESP: Respiratory Culture - ORD 06/25 180 LOWER RESP: Gram Stain - ORD 06/25 1645 BLOOD: Blood Culture - RECD 06/25 1630 BLOOD: Blood Culture - RECD Diagnostic Imaging: Viewed by Me: Radiology Read. Discussed w/RAD: Radiology Read. Radiology Impression: PATIENT: FLORENTINO MARIE PRESENT AGE: 76 PATIENT ACCOUNT NO: [id number] : 41 LOCATION: [facility] ORDERING PHYSICIAN: JATIN PHILLIPS SERVICE DATE: 06/25/16 EXAM TYPE: CAT - CT CHEST WO IV CONTRAST EXAMINATION: CT CHEST WITHOUT CONTRAST CLINICAL INFORMATION: Hypoxia, abnormal chest x-ray COMPARISON: 06/25/2016 chest x-ray, 06/14/[address] scan TECHNIQUE: Multidetector volumetric CT imaging of the chest was done. Axial MIP volume rendering provided. Sagittal and coronal reformatted images were obtained. DLP: 993.38 mGy-cm FINDINGS: LUNGS: There is a small left sided pleural effusion with associated atelectatic changes of adjacent pulmonary parenchyma, similar to the comparison CT scan. There has been mild interval increase in size of the right-sided pleural effusion, which is currently moderate in size. Atelectatic changes of adjacent pulmonary parenchyma also noted. There are also linear atelectatic changes involving the left upper lobe and superior segment of the left lower lobe, fairly similar to the comparison CT scan. No other focal pulmonary infiltrates seen. MEDIASTINUM: There is stable mild cardiomegaly. No pericardial effusion. Atherosclerotic calcifications of coronary arteries and thoracic aorta noted. The thoracic aorta and pulmonary arteries are normal in diameter. The trachea and melina are unremarkable. There is a 10 mm upper right paratracheal lymph node as seen on axial image 13/ from series 2, stable since the comparison CT scan. No other enlarged mediastinal or hilar or axillary adenopathy seen. UPPER ABDOMEN: Limited images of upper abdomen demonstrates calcified gallstones. No evidence of acute cholecystitis based on a noncontrast CT scan. Calcific densities seen in the visualized upper kidneys, can represent vascular calcification. OSSEOUS STRUCTURES: Degenerative changes of the spine noted. There is air density at L1- L2 intervertebral disc space, partially visualized and could represent vacuum disc phenomenon. Median sternotomy wires in place. IMPRESSION: 1. Stable mild cardiomegaly. 2. Atherosclerosis and coronary artery disease. 3. Stable small left-sided pleural effusion and mild interval increase in the right-sided pleural effusion which is currently moderate in size. Adjacent pulmonary opacities are noted, could represent atelectatic changes. Possibility of superimposed pneumonia can be considered and clinically evaluated. 4. Gallstones. DICTATED BY: RIGOBERTO BARBER MD DATE/TIME DICTATED:06/25/161504 REGIONAL PROGRAM MANAGER:JOSUE DATE/TIME TRANSCRIBED:06/25/161504 CONFIDENTIAL, DO NOT COPY WITHOUT APPROPRIATE AUTHORIZATION. CXR Impression: PATIENT: FLORENTINO MARIE PRESENT AGE: 76 PATIENT ACCOUNT NO: [id number] : 41 LOCATION: [facility] ORDERING PHYSICIAN: JATIN PHILLIPS SERVICE DATE: 06/25/16 EXAM TYPE: RAD - XRY-PORTABLE CHEST XRAY EXAMINATION: XR PORTABLE CHEST CLINICAL INFORMATION: Hypoxia COMPARISON: Previous chest x-rays and chest CT May 2016 TECHNIQUE: Portable frontal view of the chest was obtained. FINDINGS: The patient is rotated to the left. The cardiac silhouette is slightly enlarged but stable. There are median sternotomy wires. The lung volumes are low. There is increasing density at the left lung base questionable for increasing left base atelectasis or consolidation versus changes due to patient rotation. There is a small left pleural effusion that does not appear appreciably changed. There may be minimal atelectasis at the right lung base. There is no right pleural effusion. There is no pneumothorax. IMPRESSION: Limited exam due to patient rotation. Increasing density at the left lung base questionable for increasing atelectasis or consolidation. Small left pleural effusion similar to previous exam. Initial ED EKG: A FLUTTER, PREDOM 3:1 AV BLOCK, ATRIAL RATE 300 BPM Comments: On arrival patient is lethargic but responds to verbal intact stimuli. He is neurologically intact and is alert and oriented 3. He does seem very fatigued. Patient is slightly pale in color, pulses are intact and capillary refill in upper and left Chevys are intact. Patient has history of hypercarbic respiratory failure. He is on oxygen chronically, 3 L nasal cannula. Patient will be assessed for BiPAP. Patient getting breathing treatment, CBC, CMP, lactate, troponin. He does have a very dry oral mucosa. Concern for dehydration. Also concerned that he has edema in the extremities. Holding off on fluid resuscitation at this time secondary to edema. Patient has questionable pneumonia on x-ray. Patient will go for CT scan for confirmation. Patient still significantly fatigued, responds appropriately with verbal stimuli but falls back asleep immediately. His pH on ABG is within normal range. He does not have an anion gap. Urinalysis unremarkable. Patient still fatigued. Respiratory therapist evaluated the patient, no need for BiPAP at this time. Oxygen was lowered to 1-1/2 L nasal cannula. Patient informed of all lab work results and x-ray and CT results. Patient will be admitted for observation for questionable pneumonia. He will need pulmonology consultation. Serial DuoNeb treatments. IV antibiotics. Patient may need IV diuresis secondary to pleural effusions. (JATIN HERNANDEZ) Departure Departure Time of Disposition: 1611 Disposition: STILL A PATIENT Condition: Stable Clinical Impression Primary Impression: Pneumonia Qualifiers: Pneumonia type: due to unspecified organism Laterality: left Lung location: unspecified part of lung Qualified Code: J18.9 - Pneumonia, unspecified organism Secondary Impressions: Pleural effusion Referrals: ELLA GARCIA MD (PCP/Family) Departure Forms: Customer Survey General Discharge Information Observation Note Spoke With: SANDRA BELTRE MD Physician Advisor Notified: MARSHALL ANDREWS DO Place Patient In: Non-ED OBS Care Area Rationale for Observation: My rational for observation is as follows . Patient requiring pulmonology consultation, IV antibiotics for questionable pneumonia, BiPAP, serial DuoNeb, IV diuresis. Discharge at this time would be medically harmful. (JATIN HERNANDEZ) PA/[employer] OFF[employer] Co-Sign Statement Statement: ED Attending supervision documentation- X I saw and evaluated the patient. I have also reviewed all the pertinent lab results and diagnostic results. I agree with the findings and the plan of care as documented in the PA's/[employer]IC[employer]'s documentation. [] I have reviewed the ED Record and agree with the PA's/[employer]ICER's documentation. [] Additions or exceptions (if any) to the PAs/[employer]ICER's note and plan are summarized below: [] (KRAIG BARRETT,JOSIANE) Critical Care Note Critical Care Note Critical Care Time: 30-74 min (ALBA PHILLIPS,JATIN)
--- NOTE | 2016-06-25 09:30 | NUR ---
RESP TX GIVEN, ABG DONE, 02 DECREASED TO 1L.
--- NOTE | 2016-06-25 09:48 | RADIOLOGY REPORT ---
EXAMINATION: XR PORTABLE CHEST CLINICAL INFORMATION: Hypoxia COMPARISON: Previous chest x-rays and chest CT May 2016 TECHNIQUE: Portable frontal view of the chest was obtained. FINDINGS: The patient is rotated to the left. The cardiac silhouette is slightly enlarged but stable. There are median sternotomy wires. The lung volumes are low. There is increasing density at the left lung base questionable for increasing left base atelectasis or consolidation versus changes due to patient rotation. There is a small left pleural effusion that does not appear appreciably changed. There may be minimal atelectasis at the right lung base. There is no right pleural effusion. There is no pneumothorax. IMPRESSION: Limited exam due to patient rotation. Increasing density at the left lung base questionable for increasing atelectasis or consolidation. Small left pleural effusion similar to previous exam.
--- NOTE | 2016-06-25 10:37 | NUR ---
REPOSITIONED IN BED. HEART RATE 100-120 ATRIAL FLUTTER. INTERMITTATNLY DROPS TO 50-60.
[2016-06-25 10:56] LABS: ABSOLUTE BASOPHIL COUNT 0 /CUMM (0.0-0.2); ABSOLUTE EOSINOPHIL COUNT 0.2 /CUMM (0.0-0.7); ABSOLUTE GRANULOCYTE CT 9.2 /CUMM (1.4-6.5); ABSOLUTE LYMPH COUNT 1.6 /CUMM (1.2-3.4); ABSOLUTE MONOCYTE COUNT 0.7 /CUMM (0.10-0.60); BASOPHIL % 0.3 % (0.0-2.0); EOSINOPHIL % 1.5 % (0-5); HEMATOCRIT 26.9 % (42-52); MEAN CORPUSCULAR HGB 27.4 PG (27.0-31.0); MEAN CORPUSCULAR HGB CONC 30.8 G/DL (33.0-37.0); MEAN CORPUSCULAR VOLUME 89.1 FL (80.0-94.0); MEAN PLATELET VOLUME 8.9 FL (7.4-10.4); PLATELET COUNT 223 /CUMM (130-400); RBC DISTRIBUTION WIDTH 19.9 % (11.5-14.5); RED BLOOD CELL CT 3.02 /CUMM (4.70-6.10); WHITE BLOOD CELL COUNT 11.8 /CUMM (4.8-10.8)
--- NOTE | 2016-06-25 11:03 | NUR ---
CRITICAL TEST RESULTS [id number] FLORENTINO MARIE 76 M TESTS AND RESULTS: TROPONIN 0.17 Results received and read back by: JEMMA VEGA Results received date and time: 06/25/16 1104 The following provider was notified of the results, and read the results back: BRITTANY WILLIS Notified date and time: 06/25/16 at 1104
[2016-06-25 11:10] LABS: PT 29.4 SEC (9.4-12.5)
--- NOTE | 2016-06-25 12:30 | NUR ---
RESP AT BEDSIDE FOR TX.
--- NOTE | 2016-06-25 12:53 | NUR ---
PT STRAIGHT CATH, STERILE TECHNIQUE MAINTAINED, 200ML OF CLEAR YELLOW URINE OBTAINED AND SAMPLE SENT TO LAB.
--- NOTE | 2016-06-25 15:24 | CT SCAN REPORT ---
EXAMINATION: CT CHEST WITHOUT CONTRAST CLINICAL INFORMATION: Hypoxia, abnormal chest x-ray COMPARISON: 06/25/2016 chest x-ray, 06/14/[address] scan TECHNIQUE: Multidetector volumetric CT imaging of the chest was done. Axial MIP volume rendering provided. Sagittal and coronal reformatted images were obtained. DLP: 993.38 mGy-cm FINDINGS: LUNGS: There is a small left sided pleural effusion with associated atelectatic changes of adjacent pulmonary parenchyma, similar to the comparison CT scan. There has been mild interval increase in size of the right-sided pleural effusion, which is currently moderate in size. Atelectatic changes of adjacent pulmonary parenchyma also noted. There are also linear atelectatic changes involving the left upper lobe and superior segment of the left lower lobe, fairly similar to the comparison CT scan. No other focal pulmonary infiltrates seen. MEDIASTINUM: There is stable mild cardiomegaly. No pericardial effusion. Atherosclerotic calcifications of coronary arteries and thoracic aorta noted. The thoracic aorta and pulmonary arteries are normal in diameter. The trachea and melina are unremarkable. There is a 10 mm upper right paratracheal lymph node as seen on axial image 13/63 from series 2, stable since the comparison CT scan. No other enlarged mediastinal or hilar or axillary adenopathy seen. UPPER ABDOMEN: Limited images of upper abdomen demonstrates calcified gallstones. No evidence of acute cholecystitis based on a noncontrast CT scan. Calcific densities seen in the visualized upper kidneys, can represent vascular calcification. OSSEOUS STRUCTURES: Degenerative changes of the spine noted. There is air density at L1-L2 intervertebral disc space, partially visualized and could represent vacuum disc phenomenon. Median sternotomy wires in place. IMPRESSION: 1. Stable mild cardiomegaly. 2. Atherosclerosis and coronary artery disease. 3. Stable small left-sided pleural effusion and mild interval increase in the right-sided pleural effusion which is currently moderate in size. Adjacent pulmonary opacities are noted, could represent atelectatic changes. Possibility of superimposed pneumonia can be considered and clinically evaluated. 4. Gallstones.
--- NOTE | 2016-06-25 16:10 | NUR ---
PT REMAINES LETHARGIC, AROUSABLE TO VOICE. REPOSITIONED FOR COMFORT. VSS.
[2016-06-25] MEDS ORDERED: COUMADIN2 M1 PO (16:35)
[2016-06-25] MEDS ORDERED: MILK OF MA400 MG/52 PO (16:37)
--- NOTE | 2016-06-25 16:47 | NUR ---
HOUSE STAFF AT BEDSIDE FOR PT EVAL.
--- NOTE | 2016-06-25 17:06 | NUR ---
PT MEDICATED WITH FORTAZ AND VANCO INFUSING PER EMAR.
--- NOTE | 2016-06-25 17:14 | NUR ---
PT TO ROOM 212 BED 2
--- NOTE | 2016-06-25 17:46 | History & Physical ---
[facility] 06/25/16 1700: General Information and HPI MD Statement: I have seen and personally examined FLORENTINO DAVID and documented this H&P. The patient is a 76 year old M who presented with a patient stated chief complaint of [lethargy, AMS]. Source of Information: old records Exam Limitations: unable to give history, not alert/orientated, clinical condition History of Present Illness: 76-year-old M with PMH type 2 diabetes, CAD S/P CABG, COPD on 1.5-2 LNC, HFrEF of 50% on 04/11/2016, stage I diastolic dysfunction, RVSP 42mmHg, CVA, on nocturnal CPAP, stage III VKD, HTN, recently discharged from [facility] on 2016 after being treated for hypercarbic and hypoxemic respiratory failure was brought in from [facility] for lethargy and altered mental status. Patient was discharged 2 days ago after being treated for hypercarbic and hypoxemic respiratory failure secondary to underlying CHF and mild exacerbation of COPD. He also had bilateral lower extremity DVTs for which he was anticoagulated with Coumadin. Patient was found to be lethargic this morning and not responding to commands. The rehabilitation center for evaluation. He denies any chest discomfort, palpitations, nausea, vomiting, abdominal pain, urinary or bowel symptoms. Appears very lethargic and confused during examination. Denies any productive cough fever, chills at this time. Apparently this is the patient's baseline and and he responds to commands when woken up. It is documented that he is DNR/DNI and goals of care are not to pursue aggressive therapy, however to continue the current management. There were also talks about not rehospitalizing the patient during the last admission, however he was sent back by the facility for the same reasons. In the ED vitals temperature 98.6, pulse 75, respiration 26, blood pressure 123/ 60, saturating 96% on 3 L nasal cannula. Pertinent labs showed a white count of 11.8 with no left shift, H&H 8.3/26.9( baseline), sodium 142, potassium 4.1, bicarbonate 89, chloride 95, BUN 25, creatinine 1.1, lactic acid 0.8, normal LFTs, troponin 0.17, proBNP 10,300, albumin 2.7, INR 2.83, dig level 1.2. UA normal. AB.38/63/138/36. Chest CT showed stable cardiomegaly. Stable small left-sided pleural effusion and mild interval increase in the right-sided pleural effusion which is currently moderate in size. Adjacent pulmonary opacities are noted? Pneumonia/ atelectasis. Last echo 06/12/2016: Normal LV chamber size with mild to moderate concentric LVH. The LVEF is 40%. There is mild global hypokinesis. Borderline dilated right ventricular chamber size with grossly normal function. Estimated RV systolic pressure is 35 mmHg. Allergies/Medications Allergies: Coded Allergies: No Known Allergies (06/23/16) Home Med list Acetaminophen (Acephen) 650 MG SUPP.RECT 1 SUP NH Q4H PRN PAIN/TEMP>100 ( Reported) Acetaminophen (Pain & Fever) 325 MG TABLET 2 TAB PO Q4H PRN PAIN/TEMP>/100 ( Reported) Albuterol Sulfate 2.5 MG/3 ML (0.083 %) VIAL.NEB 1 Vial INH/STEPHANE Q4P PRN SOB ( Reported) Amino Acids/Protein Hydrolys (Pro-Stat Sugar Free Liquid) 15 GRAM-100 KCAL/30 ML LIQUID 1 TAB PO DAILY SUPPLEMENT (Reported) Aspirin (Ecotrin*) 81 MG TABLET.DR 81 MG PO DAILY HEART Bisacodyl 10 MG SUPP.RECT 1 SUP RC PRN CONSTIPATION (Reported) Budesonide 0.5 MG/2 ML AMPUL.NEB 1 Vial INH/STEPHANE BID BREATHING PROBLEMS ( Reported) Cholecalciferol (Vitamin D3) 1,000 UNIT TABLET 1,000 IU PO DAILY low vit d Digoxin (Lanoxin) 125 MCG TABLET 0.125 MG PO 7:30AM heart rate Escitalopram Oxalate 10 MG TABLET 1 TAB PO DAILY MENTAL HEALTH (Reported) Fluticasone/Salmeterol (Advair 250-50 Diskus) 250 MCG-50 MCG/DOSE BLST.W.DEV 1 PUF INH BID COPD (Reported) Furosemide 20 MG TABLET 20 MG PO DAILY water pill Glipizide 5 MG TABLET 1 TAB PO DAILY DM (Reported) Insulin Detemir (Levemir) 100 UNIT/ML VIAL 10 UNITS SC BID diabetes please continue levemir for the next 6 days and stop on april 22, 2016 Insulin Lispro (Humalog) 100 UNIT/ML VIAL DM (Reported) 151-200 2 U 201-250 4 U 251-300 6 U 301-350 8 U 351-400 10 U >400 or < 60 call Ipratropium/Albuterol Sulfate (Iprat-Albut 0.5-3(2.5) MG/3 Ml) 3 ML AMPUL.NEB 1 AMP INH 4 TIMES/DAY COPD (Reported) Magnesium Hydroxide (Milk Of Magnesia) 400 MG/5 ML ORAL.SUSP 30 ML PO DAILY PRN CONSTIPATION (Reported) Magnesium Oxide (Magnesium) 400 MG CAPSULE 1 CAP PO DAILY Low Mag Metoprolol Tartrate 50 MG TABLET 50 MG PO BID HEART Na Phos,M-B/Na Phos,Di-Ba (Fleet Enema) 19 GRAM-7 GRAM/118 ML ENEMA 1 E RC DAILY PRN CONSTIPATION (Reported) Pantoprazole Sodium (Protonix) 40 MG TABLET.DR 1 TAB PO DAILY DUODENAL ULCER Polyethylene Glycol 3350 (Miralax) 17 GRAM POWD.PACK 1 PAC PO DAILY CONSTIPATION dissolve in water Rosuvastatin Calcium (Crestor) 10 MG TABLET 1 TAB PO QPM CHOLESTEROL ( Reported) Sennosides (Senna) 8.6 MG TABLET 1 TAB PO DAILY CONSTIPATION (Reported) Tiotropium [place] (Spiriva) 18 MCG CAP.W.DEV 1 CAP INH DAILY BREATHING PROBLEMS (Reported) Warfarin Sodium (Coumadin) 2 MG TABLET 1 TAB PO DAILY BLOOD THINNER (Reported ) Past History Travel History Traveled to [place] past 21 day No Medical History Neurological: TIA, essential tremor EENT: NONE Cardiovascular: CAD, hypertension, hyperlipidemia, myocardial infarction, systolic CHF Respiratory: COPD, obstructive sleep apnea, pneumonia Gastrointestinal: NONE Hepatic: NONE Renal: chronic kidney disease Musculoskeletal: NONE Psychiatric: NONE Endocrine: diabetes, obesity Blood Disorders: anemia Cancer(s): NONE SAND TECHNOLOGIST/Reproductive: NONE History of MRSA: No History of VRE: No History of CDIFF: No Surgical History Surgical History: CABG (x 2010 @ [facility]), back surgery surgeries in bilateral shoulders right knee surgery Past Family/Social History Family History Relations & Conditions if any FATHER, ; Cause: MVA (motor vehicle accident). FH: diabetes mellitus MOTHER FH: breast cancer SISTER, ; Cause: Motor vehicle accident. BROTHER, ; Cause: Cancer. FH: cancer Psychosocial History Who Do You Live With? child Services at Home: [employer] Primary Language: Micronesian ETOH Use: denies use Living Will? yes Power of Welding Estimator/HCP? yes Name of POA/HCP: Pt's son Alejo David [phone] Functional Ability ADLs Independent: eating. Unknown: dressing, toileting, bathing. Ambulation: non-ambulatory IADLs Independent: telephone. Unknown: shopping, housework, finances, food prep, transportation, medication admin. Review of Systems Review of Systems Constitutional: Reports: malaise, weakness. EENTM: Reports: no symptoms. Cardiovascular: Reports: no symptoms. Respiratory: Reports: no symptoms. GI: Reports: no symptoms. Genitourinary: Reports: no symptoms. Musculoskeletal: Reports: no symptoms. Skin: Reports: no symptoms. Neurological/Psychological: Reports: confusion, weakness (LETHARGY). Exam & Diagnostic Data Last 24 Hrs of Vital Signs/I&O Vital Signs Date Time Temp Pulse Resp B/P B/P Pulse O2 O2 Flow FiO2 Mean Ox Delivery Rate 06/25 1610 97.2 79 18 133/61 97 Nasal 1.5L Cannula 06/25 1443 98.0 106 24 136/68 96 Nasal 1.5L Cannula 06/25 1137 98.7 69 23 128/64 97 Nasal 1.5L Cannula 06/25 1020 Non 1.0L ReBreather 06/25 0930 98 Nasal 3.0L Cannula 06/25 0858 98.6 75 26 123/60 96 Nasal Cannula Intake & Output 06/25 1600 / 0800 05/06 0000 Intake Total 0 Output Total Balance 0 Intake, Oral 0 Patient 117.934 kg Weight Weight Estimated Measurement Method Physical Exam General Appearance Alert, NOT ALERT OR ORIENTED x 3. WAKES UP ON STERNAL RUB., RESPONSIVE TO COMMANDS WHEN WOKEN UP, MORBIDTY OBESE Skin No Rashes, No Breakdown HEENT very dry mucous membranes Neck Supple, No JVD Lymphatic Cervical nl Cardiovascular Regular Rate, Normal S1, Normal S2 Lungs DIMINISHED BREATH SOUNDS AT BASES. DIMISHED AIR ENTRY. NO WHEEZING Abdomen Normal Bowel Sounds, Soft, No Tenderness Neurological NEURO EXAM NON POSSIBLE DUE TO CLINICAL CONSITION Extremities TRACE BIPEDAL EDEMA UP TO THE KNEES Vascular Normal Pulses Last 24 Hrs of Labs/Sumanth: Laboratory Tests 06/25/16 1248: Urinalysis LIGHT H, Urine Color YEL, Urine Clarity CLEAR, Urine pH 6.0, Ur Specific Pala 1.020, Urine Protein TRACE H, Urine Ketones NEG, Urine Nitrite NEG, Urine Bilirubin NEG, Urine Urobilinogen 0.2, Ur Leukocyte Esterase NEG, Ur Microscopic SEDIMENT EXAMINED, Urine RBC 1-3, Urine WBC RARE, Ur Epithelial Cells RARE, Urine Mucus FEW, Urine Hemoglobin NEG, Urine Glucose NEG 06/25/16 1204: Lactic Acid Cancelled 06/25/16 1015: Anion Gap 8, Estimated GFR > 60, BUN/Creatinine Ratio 22.7, Glucose 137 H, Lactic Acid 0.8, Calcium 8.3 L, Total Bilirubin 0.7, AST 14 L, ALT 44, Alkaline Phosphatase 53, Troponin I 0.17 *H, [id number] Pept 13457 H, Total Protein 5.0 L, Albumin 2.7 L, Globulin 2.3, Albumin/Globulin Ratio 1.2, PT 29.4 H, INR 2.83 H, CBC w Diff NO MAN DIFF REQ, RBC 3.02 L, MCV 89.1, MCH 27.4, RDW 19.9 H, MPV 8.9, Gran % 78.0 H, Lymphocytes % 13.9 L, Monocytes % 6.3, Eosinophils % 1.5, Basophils % 0.3, Absolute Granulocytes 9.2 H, Absolute Lymphocytes 1.6, Absolute Monocytes 0.7 H, Absolute Eosinophils 0.2, Absolute Basophils 0, PUBS MCHC 30.8 L, Digoxin 1.2 06/25/16 0930: pH 7.38, pCO2 63 *H, pO2 138 H, HCO3 36 H, ABG O2 Sat (Measured) 97.0, Carboxyhemoglobin 1.1 L, O2 Concentration % 3L, O2 Delivery Method NC, Phlebotomy Draw Site LEFT RADIAL Microbiology 06/25 1645 BLOOD: Blood Culture - RECD 06/25 1630 BLOOD: Blood Culture - RECD Assessment/Plan Assessment: 76-year-old M with PMH type 2 diabetes, CAD S/P CABG, COPD on 1.5-2 LNC, HFrEF of 50% on 04/11/2016, stage I diastolic dysfunction, RVSP 42mmHg, CVA, on nocturnal CPAP, stage III VKD, HTN, recently discharged from [facility] on 2016 after being treated for hypercarbic and hypoxemic respiratory failure was brought in from [facility] for lethargy and altered mental status. In the ED vitals temperature 98.6, pulse 75, respiration 26, blood pressure 123/ 60, saturating 96% on 3 L nasal cannula. Pertinent labs showed a white count of 11.8 with no left shift, H&H 8.3/26.9( baseline), sodium 142, potassium 4.1, bicarbonate 89, chloride 95, BUN 25, creatinine 1.1, lactic acid 0.8, normal LFTs, troponin 0.17, proBNP 10,300, albumin 2.7, INR 2.83, dig level 1.2. UA normal. AB.38/63/138/36. 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 Stable small left-sided pleural effusion and mild interval increase in the right-sided pleural effusion which is currently moderate in size. Adjacent pulmonary opacities are noted? Pneumonia/ atelectasis Last echo 06/12/2016: Normal LV chamber size with mild to moderate concentric LVH. The LVEF is 40%. There is mild global hypokinesis. Borderline dilated right ventricular chamber size with grossly normal function. Estimated RV systolic pressure is 35 mmHg. Plan: # Acute on Chronic hypercarbic and hypoxemic respiratory failure likely multifactorial secondary to COPD exacerbation, healthcare associated pneumonia, and underlying heart failure with reduced ejection fraction. -Patient is being observed ON TELEMETRY -Continue TRC nebs [id number] -Currently has no wheezing. We will continue prednisone 40 daily for now -Continue ceftazidime and vancomycin for healthcare associated pneumonia. Can stop antibiotics after consultation with stiff leg operator. -Continue Lasix 20 mg daily -Continue Spiriva -Swallow evaluation in am -BiPAP nocturnal and when necessary. Check another ABG 1 hour after starting BiPAP -Pulmonary consult in a.m. # Elevated troponin with cardiomyopathy with low ejection fraction/history of A. fib/flutter. Likely demand ischemia, does not appear to be ischemic event, no new ekg changes -Troponin at the same as previous presentation which had plateaued. -Follow up 3 sets to rule out ACS -Continue digoxin 0.125 mg PO daily and metoprolol 50 mg PO BID. -Continue to monitor digoxin level(patient's kidney function is better at this time) -Continue home dose of Lasix daily #Possible healthcare associated pneumonia -Continue ceftazidime and vancomycin for possible new infiltrates -Follow blood/sputum cultures -TRC nebs [id number] -Continue Spiriva daily -Continue steroids Prednisone 40 daily for now. Can stop steroids tomorrow as per pulmonology. -Check urine strep and Legionella -Pulmonary consult in a.m. #JUANITO on CPAP -BiPAP when necessary and at night -Check another ABG after BiPAP #Diabetes mellitus -3 times a day Accu-Cheks -NovoLog sliding scale -Hold home medications # Partially occlussive bilateral LE DVTs 06/12 -Continue Coumadin to maintain therapeutic INR between 2-3 Diet: Keep pt NPO till swallow in am DVT prophylaxis; Alps and Coumadin Code: DNR/DNI (this seems to be the patient's baseline, please address the issue of rehospitalization ) Low threshold for ICU transfer as this seems to be the patient's baseline. As Ranked By This Provider Problem List: 1. hypercarbic respiratory failur 2. Pneumonia Qualifiers Pneumonia type: due to unspecified organism Laterality: left Lung location: unspecified part of lung Qualified Code: J18.9 - Pneumonia, unspecified organism 3. Acute on chronic respiratory failure with hypoxia and hypercapnia 4. HFrEF (heart failure with reduced ejection fraction) 5. Obesity hypoventilation syndrome Core Measures/Miscellaneous Acute Coronary Syndrome ACS Diagnosis: No Date of most recent Echo 06/12/16 Last Known EF % 40 Cerebrovascular Accident CVA/TIA Diagnosis: No Congestive Heart Failure CHF Diagnosis: Yes Date of most recent Echo: 06/12/16 Last Known EF %: 40 ARJUN/ARB for EF <40%: No No ARJUN/ARB d/t: Renal Failure/Azotemia Venous Thromboembolism VTE Risk Factors: Age > 40, Immobility, paresis No [facility] VTE prophylaxis d/t: No contraindications No VTE Pharm Prophylaxis d/t: No contraindications VTE Diagnosis: No VTE Type: NONE VTE Confirmed by (Test): NONE Severe Sepsis Severe Sepsis Present: No BC x2: Yes Lactic Acid x2: Yes IV ABX Broad Spectrum: Yes Septic Shock Septic Shock Present: No Miscellaneous Documentation Attending Case Discussed With: SANDRA BELTRE MD Primary Care Physician: ELLA GARCIA MD Patient sees these Specialists JOSE Level of Patient Care: Telemetry SANDRA BELTRE MD 06/25/16 2012: Attending MD Review Statement Attending Statement Attending MD Statement: examined this patient, discuss w/resident/PA/WOOL SAMPLER, agreed w/resident/PA/WOOL SAMPLER, reviewed EMR data (avail) Attending Assessment/Plan: 76M PMH type 2 diabetes, CAD S/P CABG, COPD on 1.5-2 LNC, HFrEF of 50% on 2016, stage I diastolic dysfunction, RVSP 42mmHg, CVA, on nocturnal CPAP, stage III VKD, HTN brought in from SNF for lethargy and weakness. Patient appears lethargic but this is near his baseline. He has mild wheezing on exam. Patient denies any symptoms at this time. Plan - Observation in telemetry - Prednisone 40mg x 5 days - TRC/nebulizer treatment - Continue home medications - Pulmonary consult - DVT PPx
--- NOTE | 2016-06-25 18:35 | NUR ---
REPORT CALLED TO OLGA LIDIA ALBRECHT TO TELE
--- NOTE | 2016-06-25 18:38 | NUR ---
[facility] CALLED FOR TRANSPORT.
[2016-06-25 19:19] VITALS: BP 106/50
[2016-06-26 00:46] VITALS: BP 100/56
[2016-06-26 08:31] VITALS: BP 110/60
--- NOTE | 2016-06-26 08:41 | PN- Housestaff ---
DON BARRETT,BRANDON 06/26/16 0841: Subjective Follow-up For: Altered mental status, lethargic Complaints: no complaints Tele-Events Since Last Visit: Atrial flutter, heart rate from 92-107, maximum being in 130s, and couplet, PVCs overnight Subjective: Patient followed up and examined immediately. He is resting comfortably, was using BiPAP, not in distress, had no complaints, telemetry events as noted above , vital signs stable. Review of Systems Constitutional: Reports: see HPI. Objective Last 24 Hrs of Vital Signs/I&O Vital Signs Date Time Temp Pulse Resp B/P B/P Pulse O2 O2 Flow FiO2 Mean Ox Delivery Rate 06/26 1645 94 Nasal 1.5L Cannula 06/26 1600 Nasal 1.5L Cannula 06/26 1545 98.9 96 20 112/52 92 Nasal 1.5L Cannula 06/26 1210 100 110/50 06/26 1210 100 110/50 06/26 1005 92 Nasal 1.5L Cannula 06/26 1005 90 92 06/26 0930 Nasal 1.5L Cannula 06/26 0831 96.7 75 20 110/60 92 BIPAP 06/26 0800 92 BIPAP 1.5L 06/26 0258 97 91 /07 0046 98.4 73 20 100/56 90 CPAP /07 0043 75 90 05/07 0000 BIPAP 1.5L 06/25 2310 60 95 05/06 2245 98 100/50 05/06 1930 95 Nasal 1.5L Cannula 06/25 1919 98.9 99 20 106/50 97 Nasal 1.5L Cannula Intake & Output 06/26 1600 07 0800 0507 0000 Intake Total 480 0 170 Output Total Balance 480 0 170 Intake, IV 0 20 Intake, Oral 480 0 150 Number 1 0 0 Bowel Movements Patient 103.419 kg 111.13 kg Weight Weight [place] Lift Measurement Method Physical Exam General Appearance: Alert, Oriented X3, Cooperative, No Acute Distress, using BiPAP Other Physical Findings: Skin No Rashes, No Breakdown HEENT very dry mucous membranes Neck Supple, No JVD Lymphatic Cervical nl Cardiovascular Regular Rate, Normal S1, Normal S2 Lungs decreased breath sounds bilaterally Abdomen Normal Bowel Sounds, Soft, No Tenderness Neurological alert, oriented, speech is coherent, all 4 extremities power decreased to 3/5, sensation intact, gait not examined Extremities TRACE BIPEDAL EDEMA UP TO THE KNEES, better than at discharge Vascular Normal Pulses Current Medications: Current Medications Sig/Amadeo Start time Last Medication Dose Route Stop Time Status Admin Acetaminophen 325 MG Q6 PRN 06/25 1645 AC PO Albuterol Sulfate 3 ML EVERY 4 HRS/AWAKE 06/26 1200 AC 06/26 INH 1645 Albuterol Sulfate 3 ML Q4P PRN 06/25 1800 DC INH Aspirin Buffered 81 MG DAILY 06/26 1000 AC 06/26 PO 1207 Atorvastatin Calcium 10 MG 1700 06/26 1700 AC 06/26 PO 1719 Bisacodyl 10 MG DAILY NEEDED PRN 06/25 1800 AC ND Ceftazidime 1,000 MG IQ8 06/26 0000 AC 06/26 IV 1719 Digoxin 0.125 MG 7:30AM 06/26 0730 AC 06/26 PO 1210 Docusate Sodium 100 MG DAILY NEEDED PRN 06/26 1230 AC PO Escitalopram Oxalate 10 MG DAILY 06/26 1000 AC 06/26 PO 1207 Fluticasone 2 PUF BID 06/25 2200 AC 06/26 Propionate INH 1205 Furosemide 20 MG DAILY 06/26 1000 AC 06/26 IV 1206 Furosemide 20 MG DAILY 06/25 1750 DC PO Insulin Aspart 0 TIDAC 06/26 0800 AC 06/26 SC 1730 Ipratropium [place] 2.5 ML EVERY 4 HRS/AWAKE 06/26 1200 AC 06/26 INH 1645 Magnesium Oxide 400 MG DAILY 06/25 1751 AC 06/26 PO 1207 Metoprolol Tartrate 50 MG BID 06/25 2200 AC 06/26 PO 1210 Morphine Sulfate 2 MG Q4 PRN 06/25 1645 AC IV Oxycodone/ 2 TAB Q6 PRN 06/25 1645 AC Acetaminophen PO Patient Medication 1 UNIT ONE NR 06/25 2014 DC Teaching ED 06/25 2100 Polyethylene Glycol 17 GM DAILY 06/25 1752 DC 06/25 PO 2243 Prednisone 40 MG DAILY 06/25 1819 AC 06/26 PO 1207 Senna/Docusate Sodium 1 TAB BID PRN 06/26 1230 AC PO Tiotropium [place] 1 PUF DAILY 06/26 1000 DC INH Vancomycin HCl 1,000 MG DAILY@1700 05/ 1700 AC 06/26 Sodium Chloride 250 ML IV 1719 Last 24 Hrs of Lab/Sumanth Results Last 24 Hrs of Labs/Mics: Laboratory Tests 06/26/16 1200: Anion Gap 10, Estimated GFR 59 L, BUN/Creatinine Ratio 21.7, Troponin I 0.11 *H , PT 33.0 H, INR 3.18 H, CBC w Diff NO MAN DIFF REQ, RBC 3.10 L, MCV 88.2, MCH 27.7, RDW 19.2 H, MPV 9.1, Gran % 92.7 H, Lymphocytes % 5.9 L, Monocytes % 1.4 L, Eosinophils % 0, Basophils % 0 L, Absolute Granulocytes 11.4 H, Absolute Lymphocytes 0.7 L, Absolute Monocytes 0.2, Absolute Eosinophils 0, Absolute Basophils 0, PUBS MCHC 31.4 L 06/25/16 2345: Troponin I 0.19 *H Assessment/Plan Assessment: 76-year-old male with past medical history of heart failure with reduced ejection fraction of 50%, right ventricular systolic pressure of 42 mmHg/ pulmonary artery hypertension, hypertension, CVA, type 2 diabetes, coronary artery disease status post CABG, COPD on home oxygen and nocturnal CPAP, CK D, recent discharges from [facility] on 06/22/2016 for respiratory failure and atrial flutter was brought from his rehabilitation facility [place], for altered mental status and increased lethargy. He is currently being observed and managed in the telemetry floor for the following issues: #Acute on chronic hypercarbic hypoxemic respiratory failure, likely due to COPD exacerbation, healthcare associated pneumonia, cannot rule out gram-negative pneumonia: Patient started on ceftazidime and vancomycin, is receiving total respiratory care, nebulizations, Spiriva, steroids and a pulmonary consultation (appreciated). Follow-up blood and sputum cultures. According to pulm consultation, effusions are not large enough to be tapped and analyzed at this point of time. #Elevated troponin: Likely due to demand ischemia, due to underlying cardiomyopathy with atrial fibrillation/flutter and a low ejection fraction. #Obstructive sleep apnea on CPAP: Resume BiPAP as necessary, check ABG if patient is more lethargic, could be due to hypercarbia or hypoxia. #Diabetes mellitus: Continue insulin sliding scale, and regular Accu-Cheks, old home medications for now. #Recent history of DVT thrombosis of bilateral lower extremity, right upper extremity: Continue Coumadin with a therapeutic INR between 2-3. INR is 3.18 today, supratherapeutic. We'll hold Coumadin 2 mg which is his home dose as he is also having antibiotics and INR is expected to go higher tomorrow. #Patient's diet has been restarted as before, that is, mechanical ground soft diet with nectar thick liquids #DVT prophylaxis with Alps and Coumadin #CODE STATUS: Patient has been made DNR/DNI as compared to full CODE STATUS when he was initially brought to the emergency room yesterday. Family discussion initiated today about CODE STATUS and plan of care, further discussions to be held probably tomorrow. #8 plan of care remains aggressive, and low threshold for ICU transfer. Problem List: 1. Acute on chronic respiratory failure with hypoxia and hypercapnia 2. Altered mental status 3. Elevated troponin 4. JUANITO (obstructive sleep apnea) 5. 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 Atrial flutter Pain Ratin Pain Location: - Pain Goal: Pain 4 or less Pain Plan: prn Tomorrow's Labs & Rationales: INR, CBC, BEP to dose coumadin and to f/u infection and [facility]ay [facility] 1356: Attending MD Review Statement Attending Statement Attending MD Statement: examined this patient, discuss w/resident/PA/CLINICAL PROGRAM COORDINATOR, agreed w/resident/PA/CLINICAL PROGRAM COORDINATOR, reviewed EMR data (avail) Attending Assessment/Plan: 76M PMH type 2 diabetes, CAD S/P CABG, COPD on 1.5-2 LNC, HFrEF of 50% on 2016, stage I diastolic dysfunction, RVSP 42mmHg, CVA, on nocturnal CPAP, stage III VKD, HTN brought in from SNF for lethargy and weakness. Patient appears lethargic but this is near his baseline. He has mild wheezing on exam. Patient denies any symptoms at this time. Plan - Observation in telemetry - Prednisone 40mg x 5 days - TRC/nebulizer treatment - Continue home medications - Pulmonary consult - DVT PPx
--- NOTE | 2016-06-26 09:28 | Cons- Pulmonary ---
General Information and HPI Consulting Request Date of Consult: 06/26/16 Requested By: josep Reason for Consult: Hypercapnic respiratory failure History of Present Illness: Patient is 76-year-old gentleman with multiple medical problems including chronic hypercapnic respiratory failure congestive heart failure diabetes admitted with a similar presentation to his last hospitalization from which she was recently discharged. Patient had CAT scan which shows increasing pleural effusions lower lobe densities which she was started on antibiotics for healthcare associated pneumonia. Patient is arousable but lethargic and remains on BiPAP he is unable to provide any significant history Allergies/Medications Allergies: Coded Allergies: No Known Allergies (06/23/16) Home Med List: Acetaminophen (Acephen) 650 MG SUPP.RECT 1 SUP CA Q4H PRN PAIN/TEMP>100 ( Reported) Acetaminophen (Pain & Fever) 325 MG TABLET 2 TAB PO Q4H PRN PAIN/TEMP>/100 ( Reported) Albuterol Sulfate 2.5 MG/3 ML (0.083 %) VIAL.NEB 1 Vial INH/STEPHANE Q4P PRN SOB ( Reported) Amino Acids/Protein Hydrolys (Pro-Stat Sugar Free Liquid) 15 GRAM-100 KCAL/30 ML LIQUID 1 TAB PO DAILY SUPPLEMENT (Reported) Aspirin (Ecotrin*) 81 MG TABLET.DR 81 MG PO DAILY HEART Bisacodyl 10 MG SUPP.RECT 1 SUP RC PRN CONSTIPATION (Reported) Budesonide 0.5 MG/2 ML AMPUL.NEB 1 Vial INH/STEPHANE BID BREATHING PROBLEMS ( Reported) Cholecalciferol (Vitamin D3) 1,000 UNIT TABLET 1,000 IU PO DAILY low vit d Digoxin (Lanoxin) 125 MCG TABLET 0.125 MG PO 7:30AM heart rate Escitalopram Oxalate 10 MG TABLET 1 TAB PO DAILY MENTAL HEALTH (Reported) Fluticasone/Salmeterol (Advair 250-50 Diskus) 250 MCG-50 MCG/DOSE BLST.W.DEV 1 PUF INH BID COPD (Reported) Furosemide 20 MG TABLET 20 MG PO DAILY water pill Glipizide 5 MG TABLET 1 TAB PO DAILY DM (Reported) Insulin Detemir (Levemir) 100 UNIT/ML VIAL 10 UNITS SC BID diabetes please continue levemir for the next 6 days and stop on april 22, 2016 Insulin Lispro (Humalog) 100 UNIT/ML VIAL DM (Reported) 151-200 2 U 201-250 4 U 251-300 6 U 301-350 8 U 351-400 10 U >400 or < 60 call Ipratropium/Albuterol Sulfate (Iprat-Albut 0.5-3(2.5) MG/3 Ml) 3 ML AMPUL.NEB 1 AMP INH 4 TIMES/DAY COPD (Reported) Magnesium Hydroxide (Milk Of Magnesia) 400 MG/5 ML ORAL.SUSP 30 ML PO DAILY PRN CONSTIPATION (Reported) Magnesium Oxide (Magnesium) 400 MG CAPSULE 1 CAP PO DAILY Low Mag Metoprolol Tartrate 50 MG TABLET 50 MG PO BID HEART Na Phos,M-B/Na Phos,Di-Ba (Fleet Enema) 19 GRAM-7 GRAM/118 ML ENEMA 1 E RC DAILY PRN CONSTIPATION (Reported) Pantoprazole Sodium (Protonix) 40 MG TABLET.DR 1 TAB PO DAILY DUODENAL ULCER Polyethylene Glycol 3350 (Miralax) 17 GRAM POWD.PACK 1 PAC PO DAILY CONSTIPATION dissolve in water Rosuvastatin Calcium (Crestor) 10 MG TABLET 1 TAB PO QPM CHOLESTEROL ( Reported) Sennosides (Senna) 8.6 MG TABLET 1 TAB PO DAILY CONSTIPATION (Reported) Tiotropium Grahn (Spiriva) 18 MCG CAP.W.DEV 1 CAP INH DAILY BREATHING PROBLEMS (Reported) Warfarin Sodium (Coumadin) 2 MG TABLET 1 TAB PO DAILY BLOOD THINNER (Reported ) Review of Systems Review of Systems Constitutional: Denies: chills, fever. Cardiovascular: Denies: chest pain. Respiratory: Reports: no symptoms. Past History Travel History Traveled to [place] past 21 day No Medical History Blood Transfusion Hx: No Neurological: TIA, essential tremor EENT: NONE Cardiovascular: CAD, hypertension, hyperlipidemia, myocardial infarction, systolic CHF Respiratory: COPD, obstructive sleep apnea, pneumonia Gastrointestinal: NONE Hepatic: NONE Renal: chronic kidney disease Musculoskeletal: NONE Psychiatric: NONE Endocrine: diabetes, obesity Blood Disorders: anemia Cancer(s): NONE [employer]EM[employer]/Reproductive: NONE Surgical History Surgical History: CABG (x 2010 @ [facility]), back surgery surgeries in bilateral shoulders right knee surgery Family History Relations & Conditions If Any: FATHER, ; Cause: MVA (motor vehicle accident). FH: diabetes mellitus MOTHER FH: breast cancer SISTER, ; Cause: Motor vehicle accident. BROTHER, ; Cause: Cancer. FH: cancer Psychosocial History Where Do You Live? Extended Care Facility Who Do You Live With? child Services at Home: Oxygen Primary Language: German Smoking Status: Never Smoked ETOH Use: denies use Living Will? yes Power of Financial Services Internship/HCP? yes Name of POA/HCP: Pt's son Alejo David [phone] Functional Ability ADLs Independent: eating. Unknown: dressing, toileting, bathing. Ambulation: non-ambulatory IADLs Independent: telephone. Unknown: shopping, housework, finances, food prep, transportation, medication admin. Exam & Diagnostic Data Last 24 Hrs of Vital Signs/I&O Vital Signs Date Time Temp Pulse Resp B/P B/P Pulse O2 O2 Flow FiO2 Mean Ox Delivery Rate 06/27 0731 96.7 75 20 110/60 92 BIPAP 06/26 0258 97 91 06/26 0046 98.4 73 20 100/56 90 CPAP 06/26 0043 75 90 05/ 0000 BIPAP 1.5L 06/25 2310 60 95 05/ 2245 98 100/50 05/ 1930 95 Nasal 1.5L Cannula 06/25 1919 98.9 99 20 106/50 97 Nasal 1.5L Cannula 06/25 1747 96.6 85 20 114/53 97 Nasal 1.5L Cannula 06/25 1610 97.2 79 18 133/61 97 Nasal 1.5L Cannula 06/25 1443 98.0 106 24 136/68 96 Nasal 1.5L Cannula 06/25 1137 98.7 69 23 128/64 97 Nasal 1.5L Cannula 06/25 1020 Non 1.0L ReBreather 06/25 0930 98 Nasal 3.0L Cannula Intake & Output 06/26 1600 06/26 0800 / 0000 Intake Total 0 170 Output Total Balance 0 170 Intake, IV 0 20 Intake, Oral 0 150 Number 0 0 Bowel Movements Patient 228 lb 245 lb Weight Weight [place] Lift Measurement Method Oxygen saturation 1.5 L 9092% exam of his chest shows markedly diminished breath sounds there are no wheezes heard cardiac exam shows regular S1 and S2 without murmurs abdominal exam is soft nontender and he has trace edema Last 48 Hrs of Labs/[place]: Laboratory Tests 06/25/16 2345: Troponin I 0.19 *H 06/25/16 1805: Troponin I Cancelled 06/25/16 1248: Urinalysis LIGHT H, Urine Color YEL, Urine Clarity CLEAR, Urine pH 6.0, Ur Specific Ack[place] 1.020, Urine Protein TRACE H, Urine Ketones NEG, Urine Nitrite NEG, Urine Bilirubin NEG, Urine Urobilinogen 0.2, Ur Leukocyte Esterase NEG, Ur Microscopic SEDIMENT EXAMINED, Urine RBC 1-3, Urine WBC RARE, Ur Epithelial Cells RARE, Urine Mucus FEW, Urine Hemoglobin NEG, Urine Glucose NEG 06/25/16 1204: Lactic Acid Cancelled 06/25/16 1015: Anion Gap 8, Estimated GFR > 60, BUN/Creatinine Ratio 22.7, Glucose 137 H, Lactic Acid 0.8, Calcium 8.3 L, Total Bilirubin 0.7, AST 14 L, ALT 44, Alkaline Phosphatase 53, Troponin I 0.17 *H, Uqn-M-Bhdhcnnmilb Pept 74629 H, Total Protein 5.0 L, Albumin 2.7 L, Globulin 2.3, Albumin/Globulin Ratio 1.2, PT 29.4 H, INR 2.83 H, CBC w Diff NO MAN DIFF REQ, RBC 3.02 L, MCV 89.1, MCH 27.4, RDW 19.9 H, MPV 8.9, Gran % 78.0 H, Lymphocytes % 13.9 L, Monocytes % 6.3, Eosinophils % 1.5, Basophils % 0.3, Absolute Granulocytes 9.2 H, Absolute Lymphocytes 1.6, Absolute Monocytes 0.7 H, Absolute Eosinophils 0.2, Absolute Basophils 0, PUBS MCHC 30.8 L, Digoxin 1.2 06/25/16 0930: pH 7.38, pCO2 63 *H, pO2 138 H, HCO3 36 H, ABG O2 Sat (Measured) 97.0, Carboxyhemoglobin 1.1 L, O2 Concentration % 3L, O2 Delivery Method NC, Phlebotomy Draw Site LEFT RADIAL Microbiology 06/26 1247 URINE ROUT: Legionella Antigen - COMP 06/26 1247 URINE ROUT: Streptococcus pneumoniae Antigen (M - COMP Assessment/Plan Impression/Plan: 76-year-old gentleman with chronic hypercapnic respiratory failure multiple medical problems admitted with decreased mental status. His hypercapnia appears at baseline based on his normal pH. Chest x-ray shows basilar density likely related to atelectasis due to effusions. Recommendations: Follow-up cultures. Trial off BiPAP. Address directions of care as previously he was DNR/DNI with the possibility of no further rehospitalization. If cultures are negative will discontinue antibiotics. Pleural effusions do not appear large enough to warrant thoracentesis. Consult Acknowledgment - Thank you for your consult request.
[2016-06-26 13:56] LABS: ABSOLUTE BASOPHIL COUNT 0 /CUMM (0.0-0.2); ABSOLUTE EOSINOPHIL COUNT 0 /CUMM (0.0-0.7); ABSOLUTE GRANULOCYTE CT 11.4 /CUMM (1.4-6.5); ABSOLUTE LYMPH COUNT 0.7 /CUMM (1.2-3.4); ABSOLUTE MONOCYTE COUNT 0.2 /CUMM (0.10-0.60); BASOPHIL % 0 % (0.0-2.0); EOSINOPHIL % 0 % (0-5); GRANULOCYTE % 92.7 % (42.2-75.2); HEMATOCRIT 27.4 % (42-52); MEAN CORPUSCULAR HGB 27.7 PG (27.0-31.0); MEAN CORPUSCULAR HGB CONC 31.4 G/DL (33.0-37.0); MEAN CORPUSCULAR VOLUME 88.2 FL (80.0-94.0); MEAN PLATELET VOLUME 9.1 FL (7.4-10.4); PLATELET COUNT 224 /CUMM (130-400); RBC DISTRIBUTION WIDTH 19.2 % (11.5-14.5); WHITE BLOOD CELL COUNT 12.3 /CUMM (4.8-10.8)
[2016-06-26 15:45] VITALS: BP 112/52
[2016-06-27 00:31] VITALS: BP 100/57
--- NOTE | 2016-06-27 07:29 | PN- Housestaff ---
DON BARRETT,BRANDON 06/27/16 0728: Subjective Follow-up For: Altered mental status, lethargic Complaints: no complaints Tele-Events Since Last Visit: Atrial flutter, heart rate ranging from 73-82, with some PVCs overnight. Subjective: I followed up and examined the patient today. He is alert, oriented, cheerful, more verbal than ever today. He is resting comfortably in his bed, not in distress, vitals have been stable, telemetry recording as noted above, no overnight issues otherwise. Review of Systems Constitutional: Reports: see HPI. Objective Last 24 Hrs of Vital Signs/I&O Vital Signs Date Time Temp Pulse Resp B/P B/P Pulse O2 O2 Flow FiO2 Mean Ox Delivery Rate 06/27 1657 98 Nasal 1.5L Cannula 06/27 1624 98.9 143 20 110/30 99 Nasal Cannula 06/27 0928 100 112/60 06/27 0927 100 112/60 06/27 0807 92 Nasal 1.5L Cannula 06/27 0805 90 93 06/27 0800 93 BIPAP 1.5L 06/27 0730 97.1 76 20 112/60 93 BIPAP 06/27 0038 77 92 / 0031 98.5 69 20 100/57 94 05/08 0000 95 Nasal 1.5L Cannula 06/26 2230 78 95 06/26 2050 112 124/68 Intake & Output 06/27 1600 /08 0800 05/08 0000 Intake Total 630 120 35 Output Total Balance 630 120 35 Intake, IV 30 Intake, Oral 600 120 35 Number 0 Bowel Movements Patient 103.192 kg 103.192 kg Weight Physical Exam General Appearance: Alert, Oriented X3, Cooperative, No Acute Distress, obese Other Physical Findings: kin No Rashes, No Breakdown HEENT very dry mucous membranes Neck Supple, No JVD Lymphatic Cervical nl Cardiovascular Regular Rate, Normal S1, Normal S2 Lungs decreased breath sounds bilaterally, not in distress Abdomen Normal Bowel Sounds, Soft, No Tenderness Neurological alert, oriented, speech is coherent, all 4 extremities power decreased to 3/5, sensation intact, gait not examined, more verbal than ever today Extremities significant improvement in bilateral leg edema since his last discharge Vascular Normal Pulses Current Medications: Current Medications Sig/Amadeo Start time Last Medication Dose Route Stop Time Status Admin Acetaminophen 325 MG Q6 PRN 06/25 1645 AC PO Albuterol Sulfate 3 ML EVERY 4 HRS/AWAKE 06/26 1200 AC 06/27 INH 1257 Aspirin Buffered 81 MG DAILY 06/26 1000 AC 06/27 PO 0926 Atorvastatin Calcium 10 MG 1700 06/26 1700 AC 06/27 PO 1800 Bisacodyl 10 MG DAILY NEEDED PRN 06/25 1800 AC PA Ceftazidime 1,000 MG IQ8 06/26 0000 AC 06/27 IV 1800 Digoxin 0.125 MG 7:30AM 06/26 0730 AC 06/27 PO 0928 Docusate Sodium 100 MG DAILY NEEDED PRN 06/26 1230 AC PO Escitalopram Oxalate 10 MG DAILY 06/26 1000 AC 06/27 PO 0926 Fluticasone 2 PUF BID 06/25 2200 AC 06/27 Propionate INH 0928 Furosemide 20 MG DAILY 06/26 1000 AC 06/27 IV 0925 Insulin Aspart 0 TIDAC 06/26 0800 AC 06/27 SC 1200 Ipratropium Barton 2.5 ML EVERY 4 HRS/AWAKE 06/26 1200 AC 06/27 INH 1654 Magnesium Oxide 400 MG DAILY 06/25 1751 AC 06/27 PO 0926 Metoprolol Tartrate 50 MG BID 06/25 2200 AC 06/27 PO 0927 Morphine Sulfate 2 MG Q4 PRN 06/25 1645 AC IV Oxycodone/ 2 TAB Q6 PRN 06/25 1645 AC Acetaminophen PO Potassium Chloride 40 MEQ 1500 06/27 1500 DC 06/27 PO 06/27 1501 1800 Prednisone 40 MG DAILY 06/25 1819 AC 06/27 PO 05 1001 0926 Senna/Docusate Sodium 1 TAB BID PRN 06/26 1230 AC PO Vancomycin HCl 1,000 MG DAILY@1700 06/26 1700 AC 06/27 Sodium Chloride 250 ML IV 1800 Last 24 Hrs of Lab/[place] Results Last 24 Hrs of Labs/Mics: Laboratory Tests 06/27/16 1210: PT 40.3 H, INR 3.89 H 06/27/16 1205: Anion Gap 8, Estimated GFR 59 L, BUN/Creatinine Ratio 24.2, Magnesium 2.0, CBC w Diff NO MAN DIFF REQ, RBC 3.03 L, MCV 87.3, MCH 27.6, RDW 19.0 H, MPV 8.9, Gran % 84.8 H, Lymphocytes % 7.2 L, Monocytes % 7.7, Eosinophils % 0.3, Basophils % 0 L, Absolute Granulocytes 12.9 H, Absolute Lymphocytes 1.1 L, Absolute Monocytes 1.2 H, Absolute Eosinophils 0, Absolute Basophils 0, PUBS MCHC 31.6 L Assessment/Plan Assessment: 76-year-old male with past medical history of heart failure with reduced ejection fraction of 50%, right ventricular systolic pressure of 42 mmHg/ pulmonary artery hypertension, hypertension, CVA, type 2 diabetes, coronary artery disease status post CABG, COPD on home oxygen and nocturnal CPAP, CK D, recent discharges from [facility] on 06/22/2016 for respiratory failure and atrial flutter was brought from his rehabilitation facility [facility], for altered mental status and increased lethargy. He is currently being observed and managed in the telemetry floor for the following issues: #Acute on chronic hypercarbic hypoxemic respiratory failure, likely due to COPD exacerbation, healthcare associated pneumonia, cannot rule out gram-negative pneumonia: Patient started on ceftazidime and vancomycin (need to taper abx), is receiving total respiratory care, nebulizations, Spiriva, steroids and a pulmonary consultation (appreciated). Follow-up blood and sputum cultures. According to pulm consultation, effusions are not large enough to be tapped and analyzed at this point of time. Tapering steroid by 10 mg every 3 days, starting tomorrow (ordered). #Elevated troponin: Likely due to demand ischemia, due to underlying cardiomyopathy with atrial fibrillation/flutter and a low ejection fraction. #Obstructive sleep apnea on CPAP: Resume BiPAP as necessary, check ABG if patient is more lethargic, could be due to hypercarbia and/or hypoxia. Will ensure PAP upon discharge to [facility]. #Diabetes mellitus: Continue insulin sliding scale, and regular Accu-Cheks, old home medications for now. #Recent history of DVT thrombosis of bilateral lower extremity, right upper extremity: Continue Coumadin with a therapeutic INR between 2-3. INR is 3.89 today, still supratherapeutic. We'll hold Coumadin 2 mg today as well which is his home dose as he is also having antibiotics and INR is expected to go higher tomorrow. #Repleted potassium for a level of 3.6 today. Will check BEP tomorrow morning. #Patient's diet has been restarted as before, i.e., mechanical ground soft diet with nectar thick liquids. His appetite has markedly improved. #DVT prophylaxis with Alps and Coumadin #CODE STATUS: Patient has been made DNR/DNI as compared to full CODE STATUS when he was initially brought to the emergency room yesterday. Family discussion initiated yesterday about CODE STATUS and plan of care, further discussions to be held probably tomorrow. Alejo David (listed as contact/son in the chart) seems to be his POA per his ex-, and his daughter. Problem List: 1. Acute on chronic respiratory failure with hypoxia and hypercapnia 2. COPD 3. Diabetes mellitus 4. Obesity 5. Elevated troponin 6. HTN (hypertension) 7. Malnutrition 8. JUAINTO (obstructive sleep apnea) Pain Ratin Pain Location: - Pain Goal: Pain 4 or less Pain Plan: prn Tomorrow's Labs & Rationales: CBC, BEP to f/u for infection and to replete nikolay VERGARA MD,GRETA 06/27/16 2213: Attending MD Review Statement Attending Statement Attending MD Statement: examined this patient, discuss w/resident/PA/SKIN SPECIALIST, agreed w/resident/PA/SKIN SPECIALIST, reviewed EMR data (avail), discussed with nursing, discussed with case mgmt, amended to note Attending Assessment/Plan: The patient was seen and discussed with house staff and Dr. Valenzuela. Appears better using BIPAP at night and prn. Will establish goals of care with family. Continue in observation.
[2016-06-27 07:30] VITALS: BP 112/60
--- NOTE | 2016-06-27 09:34 | PN- Pulmonary ---
DONTRELL CHANDLER 06/27/16 0934: Subjective HPI/Critical Care Issues: Patient was seen and examined today. Patient alert, awake, oriented x 1. Patient stated that his breathing status improved comparing with the day of admission. He denies any fever, chills, chest pain, wheezing or cough. Objective Current Medications: Current Medications Sig/Amadeo Start time Last Medication Dose Route Stop Time Status Admin Acetaminophen 325 MG Q6 PRN 06/25 1645 AC PO Albuterol Sulfate 3 ML EVERY 4 HRS/AWAKE 06/26 1200 AC 06/27 INH 0801 Albuterol Sulfate 3 ML Q4P PRN 06/25 1800 DC INH Aspirin Buffered 81 MG DAILY 06/26 1000 AC 06/27 PO 0926 Atorvastatin Calcium 10 MG 1700 06/26 1700 AC 06/26 PO 1719 Bisacodyl 10 MG DAILY NEEDED PRN 06/25 1800 AC ND Ceftazidime 1,000 MG IQ8 06/26 0000 AC 06/27 IV 0926 Digoxin 0.125 MG 7:30AM 06/26 0730 AC 06/27 PO 0928 Docusate Sodium 100 MG DAILY NEEDED PRN 06/26 1230 AC PO Escitalopram Oxalate 10 MG DAILY 06/26 1000 AC 06/27 PO 0926 Fluticasone 2 PUF BID 06/25 2200 AC 06/27 Propionate INH 0928 Furosemide 20 MG DAILY 06/26 1000 AC 06/27 IV 0925 Insulin Aspart 0 TIDAC 06/26 0800 AC 06/27 SC 0846 Ipratropium [place] 2.5 ML EVERY 4 HRS/AWAKE 06/26 1200 AC 06/27 INH 0801 Magnesium Oxide 400 MG DAILY 06/25 1751 AC 06/27 PO 0926 Metoprolol Tartrate 50 MG BID 06/25 2200 AC 06/27 PO 0927 Morphine Sulfate 2 MG Q4 PRN 06/25 1645 AC IV Oxycodone/ 2 TAB Q6 PRN 06/25 1645 AC Acetaminophen PO Polyethylene Glycol 17 GM DAILY 06/25 1752 DC 06/25 PO 2243 Prednisone 40 MG DAILY 06/25 1819 AC 06/27 PO 05 1001 0926 Senna/Docusate Sodium 1 TAB BID PRN 06/26 1230 AC PO Tiotropium [place] 1 PUF DAILY 06/26 1000 DC INH Vancomycin HCl 1,000 MG DAILY@1700 06/26 1700 AC 06/26 Sodium Chloride 250 ML IV 1719 Vital Signs & I&O Last 24 Hrs of Vitals and I&O: Vital Signs Date Time Temp Pulse Resp B/P B/P Pulse O2 O2 Flow FiO2 Mean Ox Delivery Rate 06/28 927 100 112/60 06/27 0927 100 112/60 06/27 0807 92 Nasal 1.5L Cannula 06/27 0805 90 93 06/27 0730 97.1 76 20 112/60 93 BIPAP 06/27 0038 77 92 06/27 0031 98.5 69 20 100/57 94 05/08 0000 95 Nasal 1.5L Cannula 06/26 2230 78 95 06/26 2050 112 124/68 06/26 1645 94 Nasal 1.5L Cannula 06/26 1600 Nasal 1.5L Cannula 06/26 1545 98.9 96 20 112/52 92 Nasal 1.5L Cannula 06/26 1210 100 110/50 06/26 1210 100 110/50 06/26 1005 92 Nasal 1.5L Cannula 06/26 1005 90 92 Intake & Output 06/27 1600 06/27 0800 05/ 0000 Intake Total 120 35 Output Total Balance 120 35 Intake, Oral 120 35 Patient 228 lb Weight Exam General Appearance: well developed/nourished, alert, awake, comfortable Head: atraumatic Neck: supple Respiratory: chest non-tender, no respiratory distress, quiet respiration, decreased breath sounds Cardiovascular: irregularly irregular Abdomen: normal bowel sounds, soft, non-tender, obese Extremities: trace bilateral lower extremity edema Results Last 24 Hrs of Lab Results: Laboratory Tests 06/26/16 1200: Anion Gap 10, Estimated GFR 59 L, BUN/Creatinine Ratio 21.7, Troponin I 0.11 *H , PT 33.0 H, INR 3.18 H, CBC w Diff NO MAN DIFF REQ, RBC 3.10 L, MCV 88.2, MCH 27.7, RDW 19.2 H, MPV 9.1, Gran % 92.7 H, Lymphocytes % 5.9 L, Monocytes % 1.4 L, Eosinophils % 0, Basophils % 0 L, Absolute Granulocytes 11.4 H, Absolute Lymphocytes 0.7 L, Absolute Monocytes 0.2, Absolute Eosinophils 0, Absolute Basophils 0, PUBS MCHC 31.4 L Impression/Plan Impression/Plan Impression/Plan: This 76-year-old man who was admitted due to difficulty breathing with mild wheezing. Problem list: -Acute and chronic hypercarbic hypoxic respiratory failure, mostly secondary to CHF exacerbation. -Questionable health associated pneumonia -Elevated troponin -History of bilateral lower extremity DVT Recommendation: -Continue current antibiotic -Continue TRC nebs -Continue BiPAP nocturnally and as needed -Continue IV Lasix diuresis pre Cardiology recommendation -Continue warfarin INR 2-3 goal. NIGEL GARCIA MD 06/27/16 1109: Impression/Plan Impression/Plan Recommendations: Nigel Anne M.D. have examined this patient, reviewed available EMR data, personally reviewed images, discussed with resident/PA/RN DIGESTIVE, discussed management plan with housestaff and nursing staff, discussed managment plan all of healthcare providers, discussed management plan with patient and/or family, agreed with resident/PA/RN DIGESTIVE. The past history and parts of the chart have been autopopulated. Ensure PAP tx upon dc at [place] doing much better overall afebrile, resp status at baseline stable leukocytosis, can tailor abx taper steroids by 10mg every 3 days DVT prophylaxis at all times
--- NOTE | 2016-06-27 10:42 | Discharge Summary ---
Visit Information Visit Dates Admission Date: 06/25/16 Discharge Date: 06/28/2016 Hospital Course Course Attending Physician: GRETA VERGARA MD Primary Care Physician: RADHA BARRETT,[place] [facility] Course: 76-year-old M with PMH type 2 diabetes, CAD S/P CABG, COPD on 1.5-2 LNC, HFrEF of 50% on 04/11/2016, stage I diastolic dysfunction, RVSP 42mmHg, CVA, on nocturnal CPAP, stage III VKD, HTN, recently discharged from [place] on 2016 after being treated for hypercarbic and hypoxemic respiratory failure was brought in from [facility] for lethargy and altered mental status. In the ED vitals temperature 98.6, pulse 75, respiration 26, blood pressure 123/ 60, saturating 96% on 3 L nasal cannula. Pertinent labs showed a white count of 11.8 with no left shift, H&H 8.3/26.9( baseline), sodium 142, potassium 4.1, bicarbonate 89, chloride 95, BUN 25, creatinine 1.1, lactic acid 0.8, normal LFTs, troponin 0.17, proBNP 10,300, albumin 2.7, INR 2.83, dig level 1.2. UA normal. AB.38/63/138/36. 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 Stable small left-sided pleural effusion and mild interval increase in the right-sided pleural effusion which is currently moderate in size. Adjacent pulmonary opacities are noted? Pneumonia/ atelectasis Last echo 06/12/2016: Normal LV chamber size with mild to moderate concentric LVH. The LVEF is 40%. There is mild global hypokinesis. Borderline dilated right ventricular chamber size with grossly normal function. Estimated RV systolic pressure is 35 mmHg. He was observered in telemetry floor and treated for these medical conditions: # Acute on Chronic hypercarbic and hypoxemic respiratory failure likely multifactorial secondary to COPD exacerbation, healthcare associated pneumonia, and underlying heart failure with reduced ejection fraction. we put the patient on IV ceftazidime and vancomycin for healthcare associated pneumonia. He was put on BIPap and Po steroids.lasix 20 mg daily was continued his condition improved in 48 hours. Patient NEEDS TO BE ON NOCTURNAL BIPAP 20/ WITH 1.5 L OXYGEN. Patient can be on PRN bipap as well.patient was put on prednisone taper as well.patient was evaluted by Hospice care as well during the hospitalization. # Elevated troponin with cardiomyopathy with low ejection fraction/history of A. fib/flutter/ Likely demand ischemia, does not appear to be ischemic event, no new ekg changes. Trponins trended down. we continued digoxin and po lasix. Metoprolol was increased for better rate control by cardiology. #Diabetes mellitus We put the patient on a sliding scale insulin. Sugars were relatively controlled. Patient was put back on his home regimen upon discharge. # Partially occlussive bilateral LE DVTs on warfarin patient INR was supratherapeutic druing the hospitalization. his INR should be checked on 06/29/2016 and warfarin should be dosed accordingly. INR should be checked twice a week. Allergies: Coded Allergies: No Known Allergies (06/23/16) Pertinent Lab Results: PATIENT: FLORENTINO MARIE PRESENT AGE: 76 PATIENT ACCOUNT NO: [id number] : 41 LOCATION: [facility] ORDERING PHYSICIAN: JATIN PHILLIPS SERVICE DATE: 06/25/16 EXAM TYPE: CAT - CT CHEST WO IV CONTRAST EXAMINATION: CT CHEST WITHOUT CONTRAST CLINICAL INFORMATION: Hypoxia, abnormal chest x-ray COMPARISON: 06/25/2016 chest x-ray, 06/14/[address] scan TECHNIQUE: Multidetector volumetric CT imaging of the chest was done. Axial MIP volume rendering provided. Sagittal and coronal reformatted images were obtained. DLP: 993.38 mGy-cm FINDINGS: LUNGS: There is a small left sided pleural effusion with associated atelectatic changes of adjacent pulmonary parenchyma, similar to the comparison CT scan. There has been mild interval increase in size of the right-sided pleural effusion, which is currently moderate in size. Atelectatic changes of adjacent pulmonary parenchyma also noted. There are also linear atelectatic changes involving the left upper lobe and superior segment of the left lower lobe, fairly similar to the comparison CT scan. No other focal pulmonary infiltrates seen. MEDIASTINUM: There is stable mild cardiomegaly. No pericardial effusion. Atherosclerotic calcifications of coronary arteries and thoracic aorta noted. The thoracic aorta and pulmonary arteries are normal in diameter. The trachea and melina are unremarkable. There is a 10 mm upper right paratracheal lymph node as seen on axial image from series 2, stable since the comparison CT scan. No other enlarged mediastinal or hilar or axillary adenopathy seen. UPPER ABDOMEN: Limited images of upper abdomen demonstrates calcified gallstones. No evidence of acute cholecystitis based on a noncontrast CT scan. Calcific densities seen in the visualized upper kidneys, can represent vascular calcification. OSSEOUS STRUCTURES: Degenerative changes of the spine noted. There is air density at L1-L2 intervertebral disc space, partially visualized and could represent vacuum disc phenomenon. Median sternotomy wires in place. IMPRESSION: 1. Stable mild cardiomegaly. 2. Atherosclerosis and coronary artery disease. 3. Stable small left-sided pleural effusion and mild interval increase in the right-sided pleural effusion which is currently moderate in size. Adjacent pulmonary opacities are noted, could represent atelectatic changes. Possibility of superimposed pneumonia can be considered and clinically evaluated. 4. Gallstones. DICTATED BY: RIGOBERTO BARBER MD DATE/TIME DICTATED:06/25/161504 OIL DISPENSER:JOSUE DATE/TIME TRANSCRIBED:06/25/161504 CONFIDENTIAL, DO NOT COPY WITHOUT APPROPRIATE AUTHORIZATION. <Electronically signed in Other Vendor System> SIGNED BY: RIGOBERTO BARBER MD 06/25/16 1524 Disposition Summary Disposition Principal Diagnosis: Altered Mental status CO2 retention Additional Diagnosis: DVT DM CHF HTN Discharge Disposition: SNF Discharge Instructions General Discharge Information Code Status: Do Not Resucitate/Intubat Patient's Diet: Diabetic /HEART HEALTHY Patient's Activity: as tolerated Follow-Up Instructions/Appts: -Please follow-up with your primary care provider within 7 days after discharge. -Please follow-up with your brownell operator 7 days after discharge. -We have made changes to your home medications, please read the instructions carefully. -Please come back to the hospital if your symptoms got worse. Medications at Discharge Discharge Medications: Stop taking the following medications: Metoprolol Tartrate (Metoprolol Tartrate) 50 MG TABLET ORAL TWICE DAILY Days = 28 Continue taking these medications: Rosuvastatin Calcium (Crestor) 10 MG TABLET 1 Tablet ORAL Every night Comments: Last Taken: 06/27/16 Time: 1800 Tiotropium [place] (Spiriva) 18 MCG CAP.W.DEV 1 Capsule Inhale through mouth DAILY Comments: Last Taken: NOPT GIVEN IN HOSPITAL Time: Escitalopram Oxalate (Escitalopram Oxalate) 10 MG TABLET 1 Tablet ORAL DAILY Qty = 30 Comments: Last Taken: 06/28/16 Time: 0900 Ipratropium/Albuterol Sulfate (Iprat-Albut 0.5-3(2.5) MG/3 Ml) 3 ML AMPUL.NEB 1 Amp Inhale through mouth 4 TIMES A DAY Comments: Last Taken: NOT GIVEN IN HOSPITAL Time: Polyethylene Glycol 3350 (Miralax) 17 GRAM POWD.PACK 1 Packet ORAL DAILY Qty = 2 Instructions: dissolve in water Comments: Last Taken: NOT GIVEN IN HOSPITAL Time: Pantoprazole Sodium (Protonix) 40 MG TABLET.DR 1 Tablet ORAL DAILY Qty = 30 Comments: Last Taken: NOT GIVEN IN HOSPITAL Time: Fluticasone/Salmeterol (Advair 250-50 Diskus) 250 MCG-50 MCG/DOSE BLST.W.DEV 1 Puff Inhale through mouth TWICE DAILY Qty = 60 Comments: Last Taken: NOT GIVEN IN HOSPITAL Time: Glipizide (Glipizide) 5 MG TABLET 1 Tablet ORAL DAILY Comments: Last Taken: NOT GIVEN IN HOSPITAL Time: Insulin Lispro (Humalog) 100 UNIT/ML VIAL Inject into fatty tissue SEE INSTRUCTIONS Instructions: 151-200 2 U 201-250 4 U 251-300 6 U 301-350 8 U 351-400 10 U >400 or < 60 call MD Comments: Last Taken: 06/28/16 Time: 1700 (RECEIVED NOVOLOG) Magnesium Oxide (Magnesium) 400 MG CAPSULE 1 Capsule ORAL DAILY Qty = 30 Comments: Last Taken: 06/28/16 Time: 0900 Insulin Detemir (Levemir) 100 UNIT/ML VIAL 10 Units Inject into fatty tissue TWICE DAILY Qty = 30 Instructions: please continue levemir for the next 6 days and stop on april 22, 2016 Comments: Last Taken: NOT GIVEN IN HOSPITAL Time: Budesonide (Budesonide) 0.5 MG/2 ML AMPUL.NEB 1 Vial Inhale Solution TWICE DAILY Comments: Last Taken: NOT GIVEN IN HOSPITAL Time: Sennosides (Senna) 8.6 MG TABLET 1 Tablet ORAL DAILY Comments: Last Taken: 06/28/16 Time: 0900 Cholecalciferol (Vitamin D3) 1,000 UNIT TABLET 1,000 International Unit ORAL DAILY Qty = 30 Comments: Last Taken: NOT GIVEN IN HOSPITAL Time: Acetaminophen (Acephen) 650 MG SUPP.RECT 1 Suppository RECTALLY Q4H as needed for PAIN/TEMP>100 Comments: Last Taken: NOT GIVEN IN HOSPITAL Time: Bisacodyl (Bisacodyl) 10 MG SUPP.RECT 1 Suppository RECTAL as needed for CONSTIPATION Comments: Last Taken: NOT GIVEN IN HOSPITAL Time: Na Phos,M-B/Na Phos,Di-Ba (Fleet Enema) 19 GRAM-7 GRAM/118 ML ENEMA 1 Enema RECTAL DAILY as needed for CONSTIPATION Comments: Last Taken: NOT GIVEN IN HOSPITAL Time: Acetaminophen (Pain & Fever) 325 MG TABLET 2 Tablet ORAL Q4H as needed for PAIN/TEMP>/100 Comments: Last Taken: NOT GIVEN IN HOSPITAL Time: Albuterol Sulfate (Albuterol Sulfate) 2.5 MG/3 ML (0.083 %) VIAL.NEB 1 Vial Inhale Solution EVERY 4 HOURS NEEDED as needed for SOB Comments: Last Taken: 06/28/16 Time: 1330 Amino Acids/Protein Hydrolys (Pro-Stat Sugar Free Liquid) 15 GRAM-100 KCAL/30 ML LIQUID 1 Tablet ORAL DAILY Comments: Last Taken: NOT GIVEN IN HOSPITAL Time: Digoxin (Lanoxin) 125 MCG TABLET 0.125 Milligram ORAL 7:30AM Days = 28 Comments: Last Taken: 06/28/16 Time: 0635 Furosemide (Furosemide) 20 MG TABLET 20 Milligram ORAL DAILY Days = 28 Comments: Last Taken: 06/28/16 Time: 0900 Aspirin (Ecotrin*) 81 MG TABLET.DR 81 Milligram ORAL DAILY Days = 28 Comments: Last Taken: 06/28/13 Time: 0900 Magnesium Hydroxide (Milk Of Magnesia) 400 MG/5 ML ORAL.SUSP 30 Milliliters ORAL DAILY as needed for CONSTIPATION Comments: Last Taken: NOT GIVEN IN HOSPITAL Time: Warfarin Sodium (Coumadin) 2 MG TABLET 1 Tablet ORAL SEE INSTRUCTIONS Qty = 1 Instructions: check INR on 06/29/2016 and if it is between 2-3 give the warfarin, check INR at least 2 times a week Comments: Last Taken: HELD 06/27 AND 06/28 Time: This prescription has been renewed Start taking the following new medications: Metoprolol Succinate (Metoprolol Succinate) 25 MG TAB 75 Milligram ORAL TWICE DAILY Qty = 30 No Refills Comments: Last Taken: 06/28/16 Time: 0900 Prednisone (Prednisone) 10 MG TABLET 1 Tablet ORAL DAILY Qty = 20 No Refills Instructions: take 3 tabs 06/29 -06/30 take 2 tabs 07/01-07/02/-07/03 take 1 tab 07/04-07/05-07/06 amd then stop Comments: Last Taken: 06/28/16 Time: 0900 Copies To: FELIZ BARRETT,KAUSHIK Barrios; RADHA BARRETT,PETTY GARCIA MD,WADE Attending MD Review Statement Documenting Attending: GRETA VERGARA MD Other Findings: The patient was seen and agree with the plan of care upon discharge.
--- NOTE | 2016-06-27 11:14 | Patient Discharge Instructions ---
Discharge Instructions General Discharge Information You were seen/treated for: Altered mental status CO2 retention Special Instructions: -Please follow-up with your primary care provider within 7 days after discharge. -Please follow-up with your vacuum pan operator 7 days after discharge. -We have made changes to your home medications, please read the instructions carefully. -Please come back to the hospital if your symptoms got worse Diet Recommended Diet: Diabetic, Heart Healthy Activity Full Activity/No Limits: Yes (as tolerated) Acute Coronary Syndrome Inclusion Criteria At DC or during hospital stay patient has or had the following: ACS DIAGNOSIS No Discharge Core Measures Meds if any: Prescribed or Continued at Discharge Meds if any: NOT Prescribed or Continued at Discharge Congestive Heart Failure Inclusion Criteria At DC or during hospital stay patient has or had the following: CHF DIAGNOSIS Yes Discharge Core Measures Meds if any: Prescribed or Continued at Discharge Meds if any: NOT Prescribed or Continued at Discharge Cerebrovascular accident Inclusion Criteria At DC or during hospital stay patient has or had the following: CVA/TIA Diagnosis No Discharge Core Measures Meds if any: Prescribed or Continued at Discharge Meds if any: NOT Prescribed or Continued at Discharge Venous thromboembolism Inclusion Criteria VTE Diagnosis No VTE Type NONE VTE Confirmed by (Test) NONE Discharge Core Measures - Per Current guidelines, there needs to be overlap - treatment for the first 5 days of Warfarin therapy. - If discharged on Warfarin prior to 5 days of - overlap therapy, the patient will need to be - assessed for post discharge needs including - *Post discharge parental anticoagulation - *Warfarin and/or parental anticoagulation education - *Follow up date to check INR post discharge At least 5 days overlap therapy as Inpatient No Meds if any: Prescribed or Continued at Discharge Note: Overlap Therapy is Warfarin and Anticoagulant Meds if any: NOT Prescribed or Continued at Discharge
[2016-06-27 12:48] LABS: ABSOLUTE BASOPHIL COUNT 0 /CUMM (0.0-0.2); ABSOLUTE EOSINOPHIL COUNT 0 /CUMM (0.0-0.7); ABSOLUTE GRANULOCYTE CT 12.9 /CUMM (1.4-6.5); ABSOLUTE LYMPH COUNT 1.1 /CUMM (1.2-3.4); ABSOLUTE MONOCYTE COUNT 1.2 /CUMM (0.10-0.60); BASOPHIL % 0 % (0.0-2.0); EOSINOPHIL % 0.3 % (0-5); GRANULOCYTE % 84.8 % (42.2-75.2); HEMATOCRIT 26.4 % (42-52); MEAN CORPUSCULAR HGB 27.6 PG (27.0-31.0); MEAN CORPUSCULAR HGB CONC 31.6 G/DL (33.0-37.0); MEAN CORPUSCULAR VOLUME 87.3 FL (80.0-94.0); MEAN PLATELET VOLUME 8.9 FL (7.4-10.4); PLATELET COUNT 233 /CUMM (130-400); RED BLOOD CELL CT 3.03 /CUMM (4.70-6.10)
[2016-06-27 13:14] LABS: PT 40.3 SEC (9.4-12.5)
[2016-06-27 13:21] LABS: WHITE BLOOD CELL COUNT 15.3 /CUMM (4.8-10.8)
--- NOTE | 2016-06-27 13:58 | NUR ---
WOUND CARE: REQUESTED BY NURSING STAFF TO EVALUATE PT FOR SKIN ATLERATION PRESENT ON ADMISSION - PT EXAMINED IN BED WITH NURSE PRESENT - SUPERFICIAL STAGE 2 PRESSURE INJURY NOTED 0.4 X 0.3 CM CLEAN PINK DERMAL FILL - NO EVIDENCE OF INFECTION - SCANT SEROUS DRNG - SIZE ENCARNACION BED PENDING REPORTED BY NURSING STAFF HAS ALREADY BEEN DELIVERED IMPRESSION: STAGE 2 PRESSURE INJURY TO COCCYX RECOMMENDATION: CLEANSE WITH NS FB HYDROCOLLOID DRESSING Q 3 DAYS AND PRN - GROUP 2 MATTRESS - ENCOURAGE SIDE LYING POSITION WIB - PLEASE INITIATE PROTOCOL FOR STAGE 2 GUIDELINES
[2016-06-27 16:24] VITALS: BP 110/30
--- NOTE | 2016-06-27 18:00 | NUR ---
LATE ENTRY FROM 1330 - REPORTED TO MD INCREASED & SUSTAINED HR TO 140'S.
[2016-06-28 00:27] VITALS: BP 128/80
--- NOTE | 2016-06-28 05:54 | PN- Housestaff ---
See Addendum Subjective Follow-up For: Altered mental status Tele-Events Since Last Visit: Atrial flutter with HR [id number], qrs 0.10 Subjective: Patient seen and examined at bedside. Resting comfortably in bed with no new complaints. He reports his breathing is improved. Denies any chest pain, dyspnea , palpitations, lightheadedness, dizziness, abdominal pain, n/v/c/d. No acute events reported overnight. Review of Systems Constitutional: Reports: see HPI. Objective Last 24 Hrs of Vital Signs/I&O Vital Signs Date Time Temp Pulse Resp B/P B/P Pulse O2 O2 Flow FiO2 Mean Ox Delivery Rate 06/28 0635 120 118/64 06/28 0323 113 92 06/28 0036 60 94 / 0027 97.5 128 20 128/80 94 CPAP / 0000 94 BIPAP 1.5L 06/27 2301 128 92/60 /08 2200 89 95 / 1657 98 Nasal 1.5L Cannula 06/27 1624 98.9 143 20 110/30 99 Nasal Cannula 06/27 1600 95 Nasal 1.5L Cannula 06/27 0928 100 112/60 /08 0927 100 112/60 /08 0807 92 Nasal 1.5L Cannula 06/27 0805 90 93 / 0800 93 BIPAP 1.5L 06/27 0730 97.1 76 20 112/60 93 BIPAP Intake & Output 06/28 0800 05/09 0000 /08 1600 Intake Total 410 630 Output Total Balance 410 630 Intake, IV 260 30 Intake, Oral 150 600 Number 0 0 Bowel Movements Patient 103.419 kg 103.192 kg 103.192 kg Weight Weight [place] Lift Measurement Method Physical Exam General Appearance: Alert, Cooperative, No Acute Distress Other Physical Findings: Skin No Rashes, No Breakdown HEENT very dry mucous membranes Neck Supple, No JVD Lymphatic Cervical nl Cardiovascular Regular Rate, Normal S1, Normal S2 Lungs decreased breath sounds bilaterally, not in distress Abdomen Normal Bowel Sounds, Soft, No Tenderness Neurological alert, oriented, speech is coherent, all 4 extremities power decreased to 3/5, sensation intact, gait not examined, more verbal than ever today Extremities significant improvement in bilateral leg edema since his last discharge Vascular Normal Pulses Current Medications: Current Medications Sig/Amadeo Start time Last Medication Dose Route Stop Time Status Admin Acetaminophen 325 MG Q6 PRN 05/06 1645 AC PO Albuterol Sulfate 3 ML EVERY 4 HRS/AWAKE 06/26 1200 AC 06/27 INH 195 Aspirin Buffered 81 MG DAILY 06/26 1000 AC 06/27 PO 0926 Atorvastatin Calcium 10 MG 1700 06/26 1700 AC 06/27 PO 1800 Bisacodyl 10 MG DAILY NEEDED PRN 06/25 1800 AC [place] Ceftazidime 1,000 MG IQ8 06/26 0000 AC 06/28 IV 0103 Digoxin 0.125 MG 7:30AM 06/26 0730 AC 06/28 PO 0635 Docusate Sodium 100 MG DAILY NEEDED PRN 06/26 1230 AC PO Escitalopram Oxalate 10 MG DAILY 06/26 1000 AC 06/27 PO 0926 Fluticasone 2 PUF BID 06/25 2200 AC 06/27 Propionate INH 2123 Furosemide 20 MG DAILY 06/26 1000 AC 06/27 IV 0925 Insulin Aspart 0 TIDAC 06/26 0800 AC 06/27 SC 1832 Ipratropium [place] 2.5 ML EVERY 4 HRS/AWAKE 06/26 1200 AC 06/27 INH 1958 Magnesium Oxide 400 MG DAILY 06/25 1751 AC 06/27 PO 0926 Metoprolol Tartrate 50 MG BID 06/25 2200 AC 06/27 PO 2301 Morphine Sulfate 2 MG Q4 PRN 06/25 1645 AC IV Oxycodone/ 2 TAB Q6 PRN 06/25 1645 AC Acetaminophen PO Potassium Chloride 40 MEQ 1500 06/27 1500 DC 06/27 PO 06/27 1501 1800 Prednisone 30 MG DAILY 06/28 1000 AC PO 07/07 0959 Prednisone 40 MG DAILY 06/25 1819 DC 06/27 PO 06/29 1001 0926 Senna/Docusate Sodium 1 TAB BID PRN 06/26 1230 AC PO Vancomycin HCl 1,000 MG DAILY@1700 06/26 1700 AC 06/27 Sodium Chloride 250 ML IV 1800 Last 24 Hrs of Lab/Sumanth Results Last 24 Hrs of Labs/Mics: Laboratory Tests 06/27/16 1210: PT 40.3 H, INR 3.89 H 06/27/16 1205: Anion Gap 8, Estimated GFR 59 L, BUN/Creatinine Ratio 24.2, Magnesium 2.0, CBC w Diff NO MAN DIFF REQ, RBC 3.03 L, MCV 87.3, MCH 27.6, RDW 19.0 H, MPV 8.9, Gran % 84.8 H, Lymphocytes % 7.2 L, Monocytes % 7.7, Eosinophils % 0.3, Basophils % 0 L, Absolute Granulocytes 12.9 H, Absolute Lymphocytes 1.1 L, Absolute Monocytes 1.2 H, Absolute Eosinophils 0, Absolute Basophils 0, PUBS MCHC 31.6 L Assessment/Plan Assessment: 76-year-old male with past medical history of heart failure with reduced ejection fraction of 50%, right ventricular systolic pressure of 42 mmHg/ pulmonary artery hypertension, hypertension, CVA, type 2 diabetes, coronary artery disease status post CABG, COPD on home oxygen and nocturnal CPAP, CK D, recent discharges from [place] on 06/22/2016 for respiratory failure and atrial flutter was brought from his rehabilitation facility [place], for altered mental status and increased lethargy. #Acute on chronic hypercarbic hypoxemic respiratory failure Likely due 2/2 COPD exacerbation and healthcare associated pneumonia. Patient was initially placd on ceftazidime and vancomycin, but vanco has been discontinued. * Cont IV ceftazidime * Cont oxygen support and TRC neb tx as needed * Cont Spiriva * Cont prednisone taper (Decreasing by 10 mg every 3 days) * Appreciate pulm recs * Follow-up blood and sputum cultures. # Aflutter with RVR * Cont tele monitoring * Cardio consulted, recs appreciated * Continue digoxin at 0.125 mg daily * Increase Lopressor to 75mg PO BID #Elevated troponin: Likely due to demand ischemia, due to underlying cardiomyopathy with atrial fibrillation/flutter and a low ejection fraction. #Obstructive sleep apnea on CPAP: BiPAP as necessary, check ABG if patient is more lethargic, could be due to hypercarbia and/or hypoxia. Ensure BPAP set up upon discharge to [facility] [place]. #Diabetes mellitus: Continue insulin sliding scale, and regular Accu-Cheks, old home medications for now. #Recent history of DVT thrombosis of bilateral lower extremity, right upper extremity: Patient takes Coumadin 2mg at home * Check INR daily, dose Coumadin accordingly (therapeutic INR between 2-3) * Holding Coumadin for supratherapeutic INR #Diet- mechanical ground soft diet with nectar thick liquids. #DVT prophylaxis with Alps and Coumadin #CODE STATUS: Patient has been made DNR/DNI as compared to full CODE STATUS when he was initially brought to the emergency room yesterday. Family discussion initiated about goals of care. Further discussions to be held. Alejo David ( listed as contact/son in the chart) seems to be his POA per his ex-, and his daughter. Problem List: 1. JUANITO (obstructive sleep apnea) 2. Altered mental status 3. Pleural effusion 4. Supratherapeutic INR 5. Obesity hypoventilation syndrome Pain Ratin Pain Location: 0 Pain Goal: Pain 4 or less Pain Plan: Mild pathway Tomorrow's Labs & Rationales: CBC, BEP to f/u for infection and to replete lytes
[2016-06-28 07:50] VITALS: BP 108/60
[2016-06-28 08:27] LABS: ABSOLUTE BASOPHIL COUNT 0 /CUMM (0.0-0.2); ABSOLUTE EOSINOPHIL COUNT 0 /CUMM (0.0-0.7); ABSOLUTE GRANULOCYTE CT 12.3 /CUMM (1.4-6.5); ABSOLUTE LYMPH COUNT 1.3 /CUMM (1.2-3.4); BASOPHIL % 0 % (0.0-2.0); EOSINOPHIL % 0 % (0-5); MEAN CORPUSCULAR HGB 27.6 PG (27.0-31.0); MEAN CORPUSCULAR HGB CONC 31.6 G/DL (33.0-37.0); MEAN CORPUSCULAR VOLUME 87.4 FL (80.0-94.0); PLATELET COUNT 224 /CUMM (130-400); RBC DISTRIBUTION WIDTH 19.7 % (11.5-14.5); RED BLOOD CELL CT 3.08 /CUMM (4.70-6.10); WHITE BLOOD CELL COUNT 14.5 /CUMM (4.8-10.8)
[2016-06-28 08:35] LABS: PT 35.9 SEC (9.4-12.5)
--- NOTE | 2016-06-28 08:43 | PN- Pulmonary ---
DONTRELL CHANDLER 06/28/16 0842: Subjective HPI/Critical Care Issues: Patient was seen and examined today. Patient alert, awake, oriented x 1. Patient stated that his breathing status improved. He denies any fever, chills, chest pain, wheezing or cough. He is currently on 1 L nasal cannula oxygen oxygen saturation more than 95%, afebrile. Objective Current Medications: Current Medications Sig/Amadeo Start time Last Medication Dose Route Stop Time Status Admin Acetaminophen 325 MG Q6 PRN 06/25 1645 AC PO Albuterol Sulfate 3 ML EVERY 4 HRS/AWAKE 06/26 1200 AC 06/28 INH 0840 Aspirin Buffered 81 MG DAILY 06/26 1000 AC 06/28 PO 0859 Atorvastatin Calcium 10 MG 1700 06/26 1700 AC 06/27 PO 1800 Bisacodyl 10 MG DAILY NEEDED PRN 06/25 1800 AC [place] Ceftazidime 1,000 MG IQ8 06/26 0000 AC 06/28 IV 0841 Digoxin 0.125 MG 7:30AM 06/26 0730 AC 06/28 PO 0635 Docusate Sodium 100 MG DAILY NEEDED PRN 06/26 1230 AC PO Escitalopram Oxalate 10 MG DAILY 06/26 1000 AC 06/28 PO 0858 Fluticasone 2 PUF BID 06/25 2200 AC 06/28 Propionate INH 0859 Furosemide 20 MG DAILY 06/26 1000 AC 06/28 IV 0858 Insulin Aspart 0 TIDAC 06/26 0800 AC 06/28 SC 0840 Ipratropium [place] 2.5 ML EVERY 4 HRS/AWAKE 06/26 1200 AC 06/28 INH 0840 Magnesium Oxide 400 MG DAILY 06/25 1751 AC 06/28 PO 0858 Metoprolol Tartrate 50 MG BID 06/25 2200 AC 06/28 PO 0858 Morphine Sulfate 2 MG Q4 PRN 06/25 1645 AC IV Oxycodone/ 2 TAB Q6 PRN 06/25 1645 AC Acetaminophen PO Potassium Chloride 40 MEQ 1500 06/27 1500 DC 06/27 PO 06/27 1501 1800 Prednisone 30 MG DAILY 06/28 1000 AC 06/28 PO 07/07 0959 0858 Prednisone 40 MG DAILY 06/25 1819 DC 06/27 PO 06/29 1001 0926 Senna/Docusate Sodium 1 TAB DAILY 06/28 1000 AC 06/28 PO 0859 Senna/Docusate Sodium 1 TAB BID PRN 06/26 1230 DC PO Vancomycin HCl 1,000 MG DAILY@1700 06/26 1700 AC 06/27 Sodium Chloride 250 ML IV 1800 Vital Signs & I&O Last 24 Hrs of Vitals and I&O: Vital Signs Date Time Temp Pulse Resp B/P B/P Pulse O2 O2 Flow FiO2 Mean Ox Delivery Rate 06/29 0758 130 118/64 06/28 0840 99 Nasal 1.5L Cannula 06/28 0750 97.6 142 20 108/60 98 Nasal 1.5L Cannula 06/28 0635 120 118/64 06/28 0323 113 92 06/28 0036 60 94 06/28 0027 97.5 128 20 128/80 94 CPAP 06/28 0000 94 BIPAP 1.5L 06/27 2301 128 92/60 06/27 2200 89 95 06/27 1657 98 Nasal 1.5L Cannula 06/27 1624 98.9 143 20 110/30 99 Nasal Cannula 06/27 1600 95 Nasal 1.5L Cannula Intake & Output 06/28 1600 06/28 0800 06/28 0000 Intake Total 50 410 Output Total 200 Balance -150 410 Intake, IV 260 Intake, Oral 50 150 Number 0 Bowel Movements Output, Urine 200 Patient 228 lb 228 lb Weight Weight Carolina Lift Measurement Method Exam General Appearance: well developed/nourished, alert, awake, comfortable Head: atraumatic Neck: supple Respiratory: chest non-tender, quiet respiration, decreased breath sounds Cardiovascular: irregularly irregular Abdomen: normal bowel sounds, soft, non-tender, obese Extremities: trace edema Results Last 24 Hrs of Lab Results: Laboratory Tests 06/28/16 0740: Anion Gap 7, Estimated GFR 59 L, BUN/Creatinine Ratio 23.3, PT 35.9 H, INR 3.46 H, CBC w Diff NO MAN DIFF REQ, RBC 3.08 L, MCV 87.4, MCH 27.6, RDW 19.7 H, MPV 9.0, Gran % 84.7 H, Lymphocytes % 8.7 L, Monocytes % 6.6, Eosinophils % 0, Basophils % 0 L, Absolute Granulocytes 12.3 H, Absolute Lymphocytes 1.3, Absolute Monocytes 1.0 H, Absolute Eosinophils 0, Absolute Basophils 0, PUBS MCHC 31.6 L 06/27/16 1210: PT 40.3 H, INR 3.89 H 06/27/16 1205: Anion Gap 8, Estimated GFR 59 L, BUN/Creatinine Ratio 24.2, Magnesium 2.0, CBC w Diff NO MAN DIFF REQ, RBC 3.03 L, MCV 87.3, MCH 27.6, RDW 19.0 H, MPV 8.9, Gran % 84.8 H, Lymphocytes % 7.2 L, Monocytes % 7.7, Eosinophils % 0.3, Basophils % 0 L, Absolute Granulocytes 12.9 H, Absolute Lymphocytes 1.1 L, Absolute Monocytes 1.2 H, Absolute Eosinophils 0, Absolute Basophils 0, PUBS MCHC 31.6 L Impression/Plan Impression/Plan Impression/Plan: This 76-year-old man who was admitted due to difficulty breathing with mild wheezing. Problem list: -Acute and chronic hypercarbic hypoxic respiratory failure, mostly secondary to CHF exacerbation. -Questionable health associated pneumonia -Elevated troponin -History of bilateral lower extremity DVT Recommendation: -His antibiotic can be tailored -Continue prednisone taper -Continue TRC nebs -Continue BiPAP nocturnally and as needed -Continue IV Lasix diuresis pre Cardiology recommendation -Continue warfarin INR 2-3 goal. NIGEL GARCIA MD 06/28/16 1022: Impression/Plan Impression/Plan Recommendations: Nigel Anne M.D. have examined this patient, reviewed available EMR data, personally reviewed images, discussed with resident/PA/VISUAL MERCHANDISER, discussed management plan with housestaff and nursing staff, discussed managment plan all of healthcare providers, discussed management plan with patient and/or family, agreed with resident/PA/VISUAL MERCHANDISER. The past history and parts of the chart have been autopopulated. cont PAP tx dc planning doing much better overall afebrile, resp status at baseline stable leukocytosis, can tailor abx taper steroids by 10mg every 3 days DVT prophylaxis at all times
[2016-06-28 09:57] LABS: GRANULOCYTE % 84.7 % (42.2-75.2)
--- NOTE | 2016-06-28 10:14 | Cons- Cardiology ---
General Information and HPI Consulting Request Date of Consult: 06/28/16 Requested By: GRETA VERGARA MD Reason for Consult: Atrial flutter with a rapid ventricular response. Source of Information: patient, old records Exam Limitations: clinical condition, dementia, poor historian History of Present Illness: Mr. Mat David is a 76-year-old morbidly obese male with a history of former heavy tobacco use, COPD on home oxygen with previous exacerbations, obesity hyperventilation syndrome, JUANITO on CPAP, previous stroke, CKD, chronic anemia, HTN, HLD, DM, and CAD (s/p PR's by ECG/LV systolic dysfunction with previous HF s/p CABG 2010 at [facility] who presented via ambulance from his ECF ([facility]) with AMS, hypercarbic and hypoxemic respiratory failure secondary to HF, +/- COPD exacerbation who was recently hospitalized (06/13-06/22/2016) for the same and was additionally found to have partially occlusive bilateral LE and right UE DVTs for which anticoagulation was initiated at VTE dosing. Allergies/Medications Allergies: Coded Allergies: No Known Allergies (06/23/16) Home Med List: Acetaminophen (Acephen) 650 MG SUPP.RECT 1 SUP [place] Q4H PRN PAIN/TEMP>100 ( Reported) Acetaminophen (Pain & Fever) 325 MG TABLET 2 TAB PO Q4H PRN PAIN/TEMP>/100 ( Reported) Albuterol Sulfate 2.5 MG/3 ML (0.083 %) VIAL.NEB 1 Vial INH/STEPHANE Q4P PRN SOB ( Reported) Amino Acids/Protein Hydrolys (Pro-Stat Sugar Free Liquid) 15 GRAM-100 KCAL/30 ML LIQUID 1 TAB PO DAILY SUPPLEMENT (Reported) Aspirin (Ecotrin*) 81 MG TABLET.DR 81 MG PO DAILY HEART Bisacodyl 10 MG SUPP.RECT 1 SUP RC PRN CONSTIPATION (Reported) Budesonide 0.5 MG/2 ML AMPUL.NEB 1 Vial INH/STEPHANE BID BREATHING PROBLEMS ( Reported) Cholecalciferol (Vitamin D3) 1,000 UNIT TABLET 1,000 IU PO DAILY low vit d Digoxin (Lanoxin) 125 MCG TABLET 0.125 MG PO 7:30AM heart rate Escitalopram Oxalate 10 MG TABLET 1 TAB PO DAILY MENTAL HEALTH (Reported) Fluticasone/Salmeterol (Advair 250-50 Diskus) 250 MCG-50 MCG/DOSE BLST.WFLORINDA 1 PUF INH BID COPD (Reported) Furosemide 20 MG TABLET 20 MG PO DAILY water pill Glipizide 5 MG TABLET 1 TAB PO DAILY DM (Reported) Insulin Detemir (Levemir) 100 UNIT/ML VIAL 10 UNITS SC BID diabetes please continue levemir for the next 6 days and stop on april 22, 2016 Insulin Lispro (Humalog) 100 UNIT/ML VIAL DM (Reported) 151-200 2 U 201-250 4 U 251-300 6 U 301-350 8 U 351-400 10 U >400 or < 60 call Ipratropium/Albuterol Sulfate (Iprat-Albut 0.5-3(2.5) MG/3 Ml) 3 ML AMPUL.NEB 1 AMP INH 4 TIMES/DAY COPD (Reported) Magnesium Hydroxide (Milk Of Magnesia) 400 MG/5 ML ORAL.SUSP 30 ML PO DAILY PRN CONSTIPATION (Reported) Magnesium Oxide (Magnesium) 400 MG CAPSULE 1 CAP PO DAILY Low Mag Metoprolol Tartrate 50 MG TABLET 50 MG PO BID HEART Na Phos,M-B/Na Phos,Di-Ba (Fleet Enema) 19 GRAM-7 GRAM/118 ML ENEMA 1 E RC DAILY PRN CONSTIPATION (Reported) Pantoprazole Sodium (Protonix) 40 MG TABLET.DR 1 TAB PO DAILY DUODENAL ULCER Polyethylene Glycol 3350 (Miralax) 17 GRAM POWD.PACK 1 PAC PO DAILY CONSTIPATION dissolve in water Rosuvastatin Calcium (Crestor) 10 MG TABLET 1 TAB PO QPM CHOLESTEROL ( Reported) Sennosides (Senna) 8.6 MG TABLET 1 TAB PO DAILY CONSTIPATION (Reported) Tiotropium [place] (Spiriva) 18 MCG CAP.W.DEV 1 CAP INH DAILY BREATHING PROBLEMS (Reported) Warfarin Sodium (Coumadin) 2 MG TABLET 1 TAB PO DAILY BLOOD THINNER (Reported ) Past History Travel History Traveled to [place] past 21 day No Medical History Blood Transfusion Hx: No Neurological: TIA, essential tremor EENT: NONE Cardiovascular: CAD, hypertension, hyperlipidemia, myocardial infarction, systolic CHF Respiratory: COPD, obstructive sleep apnea, pneumonia Gastrointestinal: NONE Hepatic: NONE Renal: chronic kidney disease Musculoskeletal: NONE Psychiatric: NONE Endocrine: diabetes, obesity Blood Disorders: anemia Cancer(s): NONE PUBLIC RELATIONS PLAYER/Reproductive: NONE Surgical History Surgical History: CABG (x - 2010 @ [facility]- Dr. Bustamante), back surgery surgeries in bilateral shoulders right knee surgery Family History Relations & Conditions If Any: FATHER, ; Cause: MVA (motor vehicle accident). FH: diabetes mellitus MOTHER FH: breast cancer SISTER, ; Cause: Motor vehicle accident. BROTHER, ; Cause: Cancer. FH: cancer Psychosocial History Where Do You Live? Extended Care Facility Who Do You Live With? child Services at Home: Oxygen Primary Language: Luxembourger Smoking Status: Never Smoked ETOH Use: denies use Living Will? yes Power of Juke Box Mechanic/HCP? yes Name of POA/HCP: Pt's son Alejo David [phone] Functional Ability ADLs Independent: eating. Unknown: dressing, toileting, bathing. Ambulation: non-ambulatory IADLs Independent: telephone. Unknown: shopping, housework, finances, food prep, transportation, medication admin. Exam & Diagnostic Data Vital Signs and I&O Vital Signs Date Time Temp Pulse Resp B/P B/P Pulse O2 O2 Flow FiO2 Mean Ox Delivery Rate 06/29 0758 130 118/64 06/28 0840 99 Nasal 1.5L Cannula 06/28 0750 97.6 142 20 108/60 98 Nasal 1.5L Cannula 06/28 0635 120 118/64 06/28 0323 113 92 06/28 0036 60 94 06/28 0027 97.5 128 20 128/80 94 CPAP 06/28 0000 94 BIPAP 1.5L 06/27 2301 128 92/60 08 2200 89 95 06/27 1657 98 Nasal 1.5L Cannula 06/27 1624 98.9 143 20 110/30 99 Nasal Cannula 06/27 1600 95 Nasal 1.5L Cannula Intake & Output 06/28 1600 06/28 0000 06/27 1600 06/27 0000 Intake Total 50 410 630 120 35 Output Total 200 Balance -150 410 630 120 35 Intake, IV 260 30 Intake, Oral 50 150 600 120 35 Number 0 0 Bowel Movements Output, Urine 200 Patient 228 lb 228 lb 227 lb 228 lb Weight Weight Carolina Lift Measurement Method Physical Exam: Well-developed, morbidly obese elderly male who is lethargic and in no acute distress with nasal oxygen in place. Vital signs: See above. HEENT: Normocephalic, atraumatic, EOMI, moist mucous membranes. Neck: No JVD, no bruits. Lungs: Decreased breath sounds bilaterally. Heart: S1, S2 (irregularly, irregular) with no murmur, gallop, or rub appreciated. PMI not well felt. Abdomen: Soft, nontender, positive bowel sounds. Extremities: Trace edema. Labs/[place] Results: Laboratory Tests 06/28 06/27 0740 1210 Chemistry Sodium (137 - 145 mmol/L) 141 Potassium (3.5 - 5.1 mmol/L) 4.6 Chloride (98 - 107 mmol/L) 94 L Carbon Dioxide (22 - 30 mmol/L) 39 H Anion Gap (5 - 16) 7 BUN (9 - 20 mg/dL) 28 H Creatinine (0.7 - 1.2 mg/dL) 1.2 Estimated GFR (>60 ml/min) 59 L BUN/Creatinine Ratio (7 - 25 %) 23.3 Coagulation PT (9.4 - 12.5 SEC) 35.9 H 40.3 H INR (0.90 - 1.17) 3.46 H 3.89 H Hematology CBC w Diff NO MAN DIFF REQ WBC (4.8 - 10.8 /CUMM) 14.5 H RBC (4.70 - 6.10 /CUMM) 3.08 L Hgb (14.0 - 18.0 G/DL) 8.5 L Hct (42 - 52 %) 27.0 L MCV (80.0 - 94.0 FL) 87.4 MCH (27.0 - 31.0 PG) 27.6 RDW (11.5 - 14.5 %) 19.7 H Plt Count (130 - 400 /CUMM) 224 MPV (7.4 - 10.4 FL) 9.0 Gran % (42.2 - 75.2 %) 84.7 H Lymphocytes % (20.5 - 51.1 %) 8.7 L Monocytes % (1.7 - 9.3 %) 6.6 Eosinophils % (0 - 5 %) 0 Basophils % (0.0 - 2.0 %) 0 L Absolute Granulocytes (1.4 - 6.5 /CUMM) 12.3 H Absolute Lymphocytes (1.2 - 3.4 /CUMM) 1.3 Absolute Monocytes (0.10 - 0.60 /CUMM) 1.0 H Absolute Eosinophils (0.0 - 0.7 /CUMM) 0 Absolute Basophils (0.0 - 0.2 /CUMM) 0 PUBS MCHC (33.0 - 37.0 G/DL) 31.6 L 06/27 06/26 1205 1200 Chemistry Sodium (137 - 145 mmol/L) 139 141 Potassium (3.5 - 5.1 mmol/L) 3.6 4.9 Chloride (98 - 107 mmol/L) 91 L 95 L Carbon Dioxide (22 - 30 mmol/L) 40 H 36 H Anion Gap (5 - 16) 8 10 BUN (9 - 20 mg/dL) 29 H 26 H Creatinine (0.7 - 1.2 mg/dL) 1.2 1.2 Estimated GFR (>60 ml/min) 59 L 59 L BUN/Creatinine Ratio (7 - 25 %) 24.2 21.7 Magnesium (1.6 - 2.3 mg/dL) 2.0 Troponin I (<0.11 ng/ml) 0.11 *H Coagulation PT (9.4 - 12.5 SEC) 33.0 H INR (0.90 - 1.17) 3.18 H Hematology CBC w Diff NO MAN DIFF REQ NO MAN DIFF REQ WBC (4.8 - 10.8 /CUMM) 15.3 H 12.3 H RBC (4.70 - 6.10 /CUMM) 3.03 L 3.10 L Hgb (14.0 - 18.0 G/DL) 8.4 L 8.6 L Hct (42 - 52 %) 26.4 L 27.4 L MCV (80.0 - 94.0 FL) 87.3 88.2 MCH (27.0 - 31.0 PG) 27.6 27.7 RDW (11.5 - 14.5 %) 19.0 H 19.2 H Plt Count (130 - 400 /CUMM) 233 224 MPV (7.4 - 10.4 FL) 8.9 9.1 Gran % (42.2 - 75.2 %) 84.8 H 92.7 H Lymphocytes % (20.5 - 51.1 %) 7.2 L 5.9 L Monocytes % (1.7 - 9.3 %) 7.7 1.4 L Eosinophils % (0 - 5 %) 0.3 0 Basophils % (0.0 - 2.0 %) 0 L 0 L Absolute Granulocytes (1.4 - 6.5 /CUMM) 12.9 H 11.4 H Absolute Lymphocytes (1.2 - 3.4 /CUMM) 1.1 L 0.7 L Absolute Monocytes (0.10 - 0.60 /CUMM) 1.2 H 0.2 Absolute Eosinophils (0.0 - 0.7 /CUMM) 0 0 Absolute Basophils (0.0 - 0.2 /CUMM) 0 0 PUBS MCHC (33.0 - 37.0 G/DL) 31.6 L 31.4 L Diagnostic Data EKG Results (06/26/2016) atrial flutter with a rapid ventricular response, RBBB, indeterminate age IMI probable old AMI. Faster rate when compared to previous tracing (06/25/2016). CXR Results (06/25/2016): Limited exam due to patient rotation. Increasing density at the left lung base questionable for increasing atelectasis or consolidation. Small left pleural effusion similar to previous exam. Other Results Chest CTA (06/25/2016): 1. Stable mild cardiomegaly. 2. Atherosclerosis and coronary artery disease. 3. Stable small left-sided pleural effusion and mild interval increase in the right-sided pleural effusion which is currently moderate in size. Adjacent pulmonary opacities are noted, could represent atelectatic changes. Possibility of superimposed pneumonia can be considered and clinically evaluated. 4. Gallstones. Assessment/Plan Assessment/Plan 76-year-old morbidly obese male with a history of former heavy tobacco use, COPD on home oxygen with previous exacerbations, obesity hyperventilation syndrome, JUANITO on CPAP, previous stroke, CKD, chronic anemia, HTN, HLD, DM, and CAD (s/p PR's by ECG/LV systolic dysfunction with previous HF s/p CABG 2010 at [facility] who presented via ambulance from his F ([facility]) with AMS, acute on chronic hypercarbic and hypoxemic respiratory failure secondary to HF, +/- contribution from COPD exacerbation who was recently hospitalized (06/13 -06/22/2016) for the same and was additionally found to have partially occlusive bilateral LE and occlusive right UE DVTs for which anticoagulation was initiated at VTE dosing, atrial flutter with difficult to control rapid ventricular response rates, and positive troponin I. The major cardiac issue, at this juncture, is the rapid ventricular response rates to his atrial flutter, despite a regimen of digoxin 0.125 mg daily and metoprolol 50 mg twice daily. A major problem with management of the ventricular response to his atrial flutter has been relative hypotension. Fortunately, his blood pressure is presently adequate so we can increase beta benigno therapy and/or add non-dihydropyridine calcium channel antagonist therapy. Unfortunately, inputs and outputs do not appear accurate. Unclear what the significance of the modest troponin I elevation is. This may have been coming down from his previous admission when he had documented multiple DVT, but cannot explain the slight bump that occurred. Recommendations: * Continue on telemetry, strict inputs and outputs, daily weights, etc. * Consider repeat CXR. * Continue digoxin at 0.125 mg daily and follow-up levels. * Increase metoprolol from 50 mg twice daily to 75 mg twice daily and titrate this up as needed and as blood pressure allows. * If more rapid control of the ventricular response is necessary would start on an IV diltiazem drip. * Continue full anticoagulation for the atrial flutter and DVTs. * Continue 02, TRC, antibiotics, steroids, etc. as per pulmonary medicine. Further recommendations will follow, Thank you. Consult Acknowledgment - Thank you for your consult request.
--- NOTE | 2016-06-28 14:45 | RADIOLOGY REPORT ---
EXAMINATION: XR PORTABLE CHEST CLINICAL INFORMATION: Shortness of breath and hypoxia. Evaluate for pneumonia. COMPARISON: CXR and chest CT from 06/25/2016 TECHNIQUE: Portable AP view of the chest was obtained. FINDINGS: There are surgical changes from remote coronary artery bypass graft surgery with intact sternotomy wires in place. Patient has a large body habitus. Again noted is the large cardiac silhouette and prominent central pulmonary vessels. No acute interstitial pulmonary edema. Discoid atelectasis is present within the left upper lobe. Persistent small left pleural effusion. The left basilar opacity likely represents a combination of the prominent pericardial fat pad, left pleural effusion and basilar atelectasis. Mild hazy, linear opacity of atelectasis is again noted in the right lung base. Overall, no acute change compared to the prior radiograph of 06/25/2016. IMPRESSION: 1. Cardiomegaly without acute pulmonary edema. 2. Persistent discoid atelectasis in the left upper lobe. 3. Lung bases suboptimally evaluated due to patient body habitus. There is bibasilar atelectasis and persistent small left pleural effusion. Although pneumonia would be difficult to exclude in either base, there is no convincing pneumonia, and there was no overt pneumonia on the recent chest CT of 06/25/2016.
[2016-06-28] MEDS ORDERED: METOPROLOL SUCC25 M1 PO (15:51)
[2016-06-28] MEDS ORDERED: PREDNISONE10 M2 PO (16:03)
[2016-06-28] MEDS ORDERED: COUMADIN2 M1 PO (16:04)
[2016-06-28 17:39] VITALS: BP 114/60
[2016-06-28 17:54] VITALS: BP 122/66
== END 2016-06-28 18:00 ==
LOC: ERH 08:47 → ERHI 16:26 → 1NO 16:26 → ENRESERV 17:09 → CANRESERV 17:09 → EDBEDREQ 17:27 → ENRESERV 17:57 → 1NO 18:57
PROVIDERS: Physician Assistant; Student in an Organized Health Care Education/Training Program; ADMIT Internal Medicine
DX: I13.0 Hypertensive heart and chronic kidney disease with heart failure and stage 1 through stage 4 chronic kidney disease, or unspecified chronic kidney disease (principal); I50.23 Acute on chronic systolic (congestive) heart failure; N18.3 Chronic kidney disease, stage 3 (moderate); J96.22 Acute and chronic respiratory failure with hypercapnia; J96.21 Acute and chronic respiratory failure with hypoxia; E11.9 Type 2 diabetes mellitus without complications; I25.810 Atherosclerosis of coronary artery bypass graft(s) without angina pectoris; J44.1 Chronic obstructive pulmonary disease with (acute) exacerbation; Z86.73 Personal history of transient ischemic attack (TIA), and cerebral infarction without residual deficits; I48.91 Unspecified atrial fibrillation; Z79.01 Long term (current) use of anticoagulants; I48.92 Unspecified atrial flutter; E66.2 Morbid (severe) obesity with alveolar hypoventilation; Z68.45 Body mass index [BMI] 70 or greater, adult; E46 Unspecified protein-calorie malnutrition; I42.9 Cardiomyopathy, unspecified
CPT/HCPCS: 1263; 1288; 1328; 1425; 1530; 1748; 36415; 81001; 82436; 87040; 87070; 87449; 87450; 92610-GN; 93005; 93010; 96374; 96375; 96376; 99291; G0378; G8996-GN; G8997-GN; G8998-GN; J0713; J1644; J1940; J2920; J3370; J3490; J7040; J7512